=== PATIENT | female | born 1955 | race Caucasian/White ===

== ENCOUNTER 2017-12-25 11:49 | Emergency (ER) | payer MEDICARE, SELFPAY ==
[2017-12-25 11:50] VITALS: BP 157/108; PULSE 116; RESP 28; TEMP 36.6; O2SAT 99; BMI 49.3
--- NOTE | 2017-12-25 12:14 | EKG12_ITS ---
Test Reason : FLU/TACHYCARDIA Blood Pressure : / mmHG Vent. Rate : 113 BPM Atrial Rate : 113 BPM P-R Int : 156 ms QRS Dur : 128 ms QT Int : 368 ms P-R-T Axes : 068 -45 028 degrees QTc Int : 504 ms Sinus tachycardia Right bundle branch block Left anterior fascicular block Bifascicular block Inferior infarct , age undetermined Anterolateral infarct , age undetermined Abnormal ECG Confirmed by SHEKHAR BHAT, HOLLI ([id number]), clinical editor RICARDO DASILVA ([id number]) on 12/28/2017 1:48:38 PM Referred By: TDOD Confirmed By:HOLLI CORRIGAN MD
[2017-12-25 12:28] LABS: Absolute Lymphocyte Count 2.43 X10^3/ul (0.83-4.51); Absolute Neutrophil Count 3.9 X10^3/uL (2.0-7.7); Basophil# 0.02 X10^3/uL; Basophil% 0.3 % (0-1); Eosinophil# 0.16 X10^3/uL; Eosinophils% 2.2 % (0-5); Hematocrit 39.9 % (37-47); Lymphocyte # 2.43 X10^3/ul (4.0); Lymphocyte % 34.1 % (19-41); Mean Corp Hgb Conc 32.6 g/gl (32-36); Mean Corpuscular Hgb 29.3 pg (27.0-32.0); Mean Corpuscular Volume 90.1 fL (81-99); Mean Platelet Vol. 10.8 fl (6.2-12.0); Monocyte# 0.59 X10^3/uL; Monocyte% 8.3 % (0-10); Neutrophil # 3.92 X10^3/uL (2.7-7.7); Platelet Count 265 K/mm3 (150-450); RBC Distribution Width CV 12.6 % (11.6-14.6); RBC Distribution Width SD 41.1 fl (35.1-43.9); Red Blood Count 4.43 M/mm3 (4.2-5.4); White Blood Count 7.1 K/mm3 (4.4-11.0)
[2017-12-25] MEDS: Ondansetron 4 MG/2 ML Vial IV (12:28)
[2017-12-25 12:30] LABS: POSITIVE COUNT NO; POSITIVE DIFFERENTIAL NO; POSITIVE MORPHOLOGY NO
[2017-12-25] MEDS: Morphine 4 MG/ML Syringe IV (12:30)
[2017-12-25 12:39] LABS: International Normalized Ratio 1.1; Prothrombin Time (Protime)PT. 13.7 SECONDS (11.7-14.9)
[2017-12-25 12:40] LABS: Anion Gap 9 (5-15); BUN 14 mg/dL (7-18); BUN/Creat Ratio 16.4 RATIO (10-20); Calcium,Total 9.3 mg/dL (8.5-10.1); Chloride 97 mmol/L (98-107); Creatinine, Serum 0.85 mg/dL (0.55-1.02); EST Glomerular Filtration Rate 71 mL/min (>60); Est Glom Filt Rate - Afr Amer 86 mL/min (>60); Estimated Creatinine Clearance 60.96 ml/min; Glucose 337 mg/dL (74-106); Potassium 3.3 mmol/L (3.5-5.1); Sodium Level 133 mmol/L (136-145)
[2017-12-25 13:15] LABS: Bacteria 0 SEEN /hpf (None Seen); Mucous, Urine 0 SEEN /hpf (<or=2+); Red Blood Cells-Urine 0 SEEN /hpf (0-5); Squamous Epithelial Cells - UA 0 SEEN /hpf (5-10); White Blood Cells 0 SEEN /hpf (0-5)
[2017-12-25 13:19] LABS: Color, Urine Yellow (Yellow); Glucose, Dipstick 1000 mg/dl (Normal); Ketone-Dipstick Negative (Negative); Leukocyte Esterase-Dipstick Negative /ul (Negative); Nitrite-Dipstick Negative (Negative); Occult Blood-Urine 10 /ul (Negative); Protein-Dipstick 100 mg/dl (Negative); Urine Bilirubin Dipstick Negative (Negative); Urine Clarity Clear (Clear); Urine Urobilinogen Normal (Normal)
[2017-12-25 13:42] VITALS: BP 151/79; PULSE 94; O2SAT 94
--- NOTE | 2017-12-25 15:25 | ED.VISSUMM ---
- ER Visit Summary Date of Service: 12/25/17 Chief Complaint: Hyperglycemia and sacral decubitus ulcer. History of Present Illness: The patient is a 62 F who presents with elevated blood sugars that began yesterday. Patient is concerned over a possible infection that is causing her blood sugars to elevate. Patient states she did take her insulin today and her sugar remained elevated. Patient admits to increasing fatigue and increasing sleep. Patient states she does not ambulate due to chronic infection of her hip. Patient denies any fevers. Patient admits to some nausea but denies any vomiting. Patient states she did have an episode of chest pain yesterday but currently denies any chest pain. Physical Examination: Vital signs showed tachycardia and tachypnea on initial vital signs. This improved during her emergency department stay. Patient is afebrile. Patient is in no acute distress. Oral mucosa is pink and moist. Pupils are equal, round, reactive to light bilaterally. Extraocular muscles are intact. Heart was regular rate and rhythm. Lungs are clear and equal bilaterally. There is adequate respiratory effort noted. Abdomen is soft and obese. There is no tenderness. Bowel sounds are normal. Skin is warm and dry. There is a stage II decubitus ulcer over the sacrum. There is no surrounding erythema. There is no discharge or drainage noted. Cranial nerves II through XII are intact. There are no focal motor or sensory deficits noted. Test Results: CBC was within normal limits. EKG showed sinus tachycardia with a rate of 113. There is a bifascicular block noted. There is left axis deviation. 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 There are no acute ST or T-wave changes. Basic metabolic profile showed an elevated glucose of 337. Patient was given a dose of NovoLog here. Urinalysis does not show any evidence of urinary tract infection. Emergency Department Course and Treatment: Patient was given a dose of NovoLog 5 units subcu here. A DuoDERM dressing was applied to the sacral decubitus ulcer. Patient was advised that she does not have any signs and symptoms of sepsis. Patient was instructed to continue her Bactrim as previously prescribed. Patient was instructed to follow-up with her primary care physician for further management of her pain. Patient understood and was agreeable with the plan. All questions were answered. Disposition: Discharged home Impression: Hyperglycemia, sacral decubitus ulcer stage II This note was generated with [employer] software. It may contain incorrect words, spelling, and punctuation that were not noted in review of the chart prior to signing ED Disposition - Plan for ED Patient: Disposition: Home or Assisted Living Chief Complaint: General Illness Diagnosis: Hyperglycemia, Sacral decubitus ulcer, stage II Instructions: ED Hyperglycemia Diabetic Referrals: Gera Snider III, MD [Primary Care Provider] -
[2017-12-25 15:35] VITALS: BP 179/74; PULSE 92; RESP 18; O2SAT 95
[2017-12-25 16:12] VITALS: BP 172/74; PULSE 64; RESP 18; O2SAT 95
--- NOTE | 2017-12-25 16:39 | ED.RN ---
UPON ATTEMPTING TO DC PT, PT BEGAN CRYING ABOUT BEING SENT HOME. EXPLAINED TO PT SHE COULDN'T BE ADMITTED D/T NO INFECTION OR MEDICAL DX. PT VOICED CONCERN FOR BEING ABLE TO CARE FOR SELF, WALKING, AND WOUND ON BUTTOCK. ADVISED PT ABOUT CASE MANAGEMENT OR A RAILROAD CONDUCTOR BEING ABLE TO HELP, AND OFFERED TO GET THEM FOR HER TO TALK TO. PT DECLINED. PT STATED SHE WOULD CALL ON HER OWN WHEN SHE GOT HOME. ADVISED TO PT TO CALL BACK TO THE HOSPITAL IF SHE HAD QUESTIONS OR CHANGED HER MIND ABOUT HELP. PT STATED UNDERSTANDING AND THAT SHE WOULD FOLLOW UP WITH PCP.
== END 2017-12-25 16:13 | disposition home or self-care (01) ==
PROVIDERS: Emergency Provider Emergency Medicine; Family Provider Family Medicine; PCP Family Medicine
DX: E11.65 Type 2 diabetes mellitus with hyperglycemia (principal); L89.152 Pressure ulcer of sacral region, stage 2; E11.622 Type 2 diabetes mellitus with other skin ulcer; Z79.4 Long term (current) use of insulin; I25.10 Atherosclerotic heart disease of native coronary artery without angina pectoris; I25.2 Old myocardial infarction; Z95.1 Presence of aortocoronary bypass graft; Z86.73 Personal history of transient ischemic attack (TIA), and cerebral infarction without residual deficits; Z79.82 Long term (current) use of aspirin; Z79.01 Long term (current) use of anticoagulants; Z79.899 Other long term (current) drug therapy; Z72.0 Tobacco use
CPT/HCPCS: 51702; 80048; 81001; 84484; 85025; 85610; 85730; 93005; 96374; 96375; 99285; J7030; A4216; J2405

== ENCOUNTER 2018-01-31 14:30 | Outpatient (RCR) | payer MEDICARE, SELFPAY ==
[2018-01-24 15:32] VITALS: BP 153/67; PULSE 69; RESP 18; TEMP 36.1; BMI 38.6
--- NOTE | 2018-01-29 14:19 | HP.PCM_ITS ---
(1) Stage II pressure ulcer of right buttock Status: Acute Code(s): L89.312 - Pressure ulcer of right buttock, stage 2 (2) Stage II pressure ulcer of left buttock Status: Acute Code(s): L89.322 - Pressure ulcer of left buttock, stage 2 (3) Obesity, morbid Status: Acute Code(s): E66.01 - Morbid (severe) obesity due to excess calories (4) COPD (chronic obstructive pulmonary disease) Status: Chronic Code(s): J44.9 - Chronic obstructive pulmonary disease, unspecified (5) Coronary artery disease Status: Chronic Comment: Status post CABG (6) Depression Status: Chronic Code(s): F32.9 - Major depressive disorder, single episode, unspecified (7) Diabetic neuropathy associated with type 2 diabetes mellitus Status: Chronic Code(s): E11.40 - Type 2 diabetes mellitus with diabetic neuropathy, unspecified Comment: Bilateral (8) Peripheral vascular disease in diabetes mellitus Status: Chronic Code(s): E11.51 - Type 2 diabetes mellitus with diabetic peripheral angiopathy without gangrene (9) Tobacco abuse Status: Chronic Code(s): Z72.0 - Tobacco use History of Present Illness Date of Service: 01/24/18 Chief Complaint: Open pressure sore b/l buttocks x 2 months History of Wound: This is a 62-year-old white female who presents to the wound healing center today with complaints of ulcerations on her bilateral buttocks times the past 2 months. The patient was seen at [facility] emergency department in December 2017 with similar complaints. The patient does have a past medical history which is significant for morbid obesity, type 2 diabetes mellitus, COPD with chronic tobacco abuse, obstructive sleep apnea, hypertension, peripheral vascular disease, peripheral arterial disease, coronary artery disease, osteoarthritis, and peripheral neuropathy. The patient states that she has been using hydrogel and foam for the past 3 days. She does state that she spends most of her time in a recliner chair at home and is wheelchair-bound otherwise. She does use a [id number] wheelchair cushion that she has bought. She states that her blood sugars are adequately controlled. She denies any obvious signs of infection specifically denies any purulent drainage, fever, chills, nausea, vomiting, shortness of breath, chest pain or pressure, syncope or presyncopal episodes. Past Medical History Past Medical History: Chronic Problems Tobacco abuse (Chronic) COPD (chronic obstructive pulmonary disease) (Chronic) Depression (Chronic) Dyslipidemia (Chronic) Diabetic nephropathy (Chronic) Pressure ulcer of left heel, stage 2 (Chronic) Stage III pressure ulcer of sacral region (Chronic) Right hip pain (Chronic) Diabetic neuropathy (Chronic) Peripheral vascular disease in diabetes mellitus (Chronic) Diabetic neuropathy associated with type 2 diabetes mellitus (Chronic) Bilateral Diabetic ulcer of heel (Chronic) Left, grade 2 Diabetes mellitus type II (Chronic) Coronary artery disease (Chronic) Status post CABG 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, right hip surgery Allergies/Adverse Reactions: Allergies povidone-iodine [From Betadine] Allergy (Verified 06/03/17 19:25) Itching topical betadine prednisone Allergy (Verified 06/03/17 19:25) Other Home Medications: Ambulatory Orders Medication Instructions Recorded Aspirin [Aspirin, Baby] 81 mg PO DAILY@0800 03/24/15 Atorvastatin Calcium [Lipitor] 40 mg PO QHS 03/24/15 Clopidogrel Bisulfate [Plavix] 75 mg PO DAILY 03/24/15 Gabapentin [Neurontin] 800 mg PO TIDCM 03/24/15 Metoprolol Tartrate [Lopressor 25 mg PO BID 03/24/15 (Beta [place])] Omeprazole [Prilosec] 20 mg PO DAILY 03/24/15 Fluticasone 0.05% [Flonase Nasal 2 spray NASAL DAILY PRN 07/20/15 [place]] Insulin Glargine,Hum.rec.anlog 60 unit SQ QHS 07/20/15 [Lantus] Lisinopril [Zestril] 20 mg PO DAILY 11/09/15 Ferrous Sulfate 325 mg PO DAILY 04/19/16 Fluconazole [Diflucan] 150 mg PO QWEEK 04/19/16 Insulin Lispro [Humalog KwikPen] 22 unit SQ TID 04/19/16 Nystatin Powder [Mycostatin Powder] 1 applic TOPICAL TID PRN 04/19/16 Albuterol Aerosols [Ventolin 2.5 mg INHALATION Q6HWA.RT PRN 09/10/16 Aerosols] Duloxetine HCl 60 mg PO DAILY 06/03/17 Diphenoxylate HCl/Atropine 1 each PO 4X/DAY PRN PRN 12/25/17 [Lomotil 2.5-0.025 mg Tablet] Sulfamethoxazole/Trimethoprim 2 each PO BID 12/25/17 [Bactrim 400-80 mg Tablet] traMADol [Ultram (G)] 50 mg PO DAILY PRN PRN 12/25/17 Amitriptyline HCl [Elavil] 25 mg PO QHS 01/24/18 - Family History Maternal Cancer, Diabetes, Hypertension, Pulmonary Disease Paternal Cancer, Hypertension, Pulmonary Disease, No pertinent history Smoking Status: Current every day smoker Review of Systems Constitutional: Denies: Chills, Fever, Weight Change Eyes: Denies: Pain, Vision Change HEENT: Denies: Difficulty Hearing, Difficulty Swallowing, Sinus Congestion Cardiovascular: Denies: Chest Pain, Palpitations Respiratory: Denies: Cough, Shortness of Breath Gastrointestinal: Denies: Diarrhea, Nausea, Vomiting Genitourinary: Denies: Dysuria, Hematuria Skin: Reports: Wounds - seer HPI Endocrine: Denies: Heat/ Cold Intolerance, Polydipsia, Polyuria Hematologic/ Lymphatic: Denies: Easy Bruising, Easy Bleeding - Physical Exam Vital Signs Temp Pulse Resp BP 96.9 F L 69 18 153/67 H 01/24/18 15:32 01/24/18 15:32 01/24/18 15:32 01/24/18 15:32 General: Alert, Oriented x3, Cooperative, No apparent distress, - - wheelchair bound, morbidly obese HEENT: Atraumatic Oral: Moist Mucosa Neck: Supple Lungs: Clear to auscultation, Normal air movement Cardiovascular: Regular rate, Regular Rhythm, Normal S1, Normal S2 Abdomen: Bowel Sounds Present, Obese Extremities: Diminished Peripheral Pulses, Edema - 3+ BLLE Skin: Ulcer/ Wound - Stage II pressure ulcers present bilateral upper buttocks with moderate amount of devitalized tissue and slough present, no purulent drainage or tenderness on exam noted. Musculoskeletal: No Tenderness to Palpation of Joints or Extremities Neurological: Neuro grossly intact Psych/Mental Status: Normal Affect, Alert and oriented to time, place, person, mood and affect Debridement Note Post-Debridement Measurements/Treatment WC - Nurse 2 - General Ulcer CM Notes Start: 01/24/18 15:32 Freq: Status: Active Protocol: Activity Type Activity Date Activity User E-Sign Co-Sign Detail Recorded Client Recorded Date Recorded By Document 01/24/18 16:01 [id number] 01/24/18 16:16 01/24/18 16:01 Wound Center Nurse 2 #13 right sacral ulcer -Time 16:15 -Correct Patient Yes -Correct Side, Site, Position Yes -Correct Procedure Yes -Procedure Performed Yes -Type of Procedure Debridement -Clinical Debridement Subcutaneous -Post Debridement Size (cm) - Length 0.8 -Post Debridement Size (cm) - Width 0.5 -Post Debridement Size (cm) - Depth 0.1 -Total Square Cm 0.40 -Wound/Ulcer Outcome Not Healed -Ulcer Cleansing Rinsed/ Irrigated with Saline -Foul Odor after Cleansing No -Bioengineered Tissue No -Topical Lidocaine (%) 5 -Bleeding Controlled with Pressure -Treatment Response Procedure Tolerated Well #12 left sacral cluster ulcer -Time 16:01 -Correct Patient Yes -Correct Side, Site, Position Yes -Correct Procedure Yes -Procedure Performed Yes -Type of Procedure Debridement -Clinical Debridement Subcutaneous -Post Debridement Size (cm) - Length 4.5 -Post Debridement Size (cm) - Width 3.5 -Post Debridement Size (cm) - Depth 0.1 -Total Square Cm 15.75 -Wound/Ulcer Outcome Not Healed -Ulcer Cleansing Rinsed/ Irrigated with Saline -Foul Odor after Cleansing No -Bioengineered Tissue No -Topical Lidocaine (%) 5 -Bleeding Controlled with Pressure -Treatment Response Procedure Tolerated Well Pain Scale: 0-10 Numeric Is Patient Pain Free? Yes Wound debrided: Stage II pressure ulcer right buttock Laterality: Right Type of Debridement: Excisional debridement Anesthesia Used: 5% Lidocaine Gel Depth: Down to and including healthy tissue, in the subcutaneous layer Percentage of wound debrided: 100 Instrument Used: 5mm curette Tissue Removed: Slough and devitalized tissue Severity: Fat Layer Exposed Amount of bleeding with debridement: Mild Bleeding Controlled with: Pressure Patient tolerated procedure well - Additional Wound Wound debrided: Stage II pressure ulcer left buttock Laterality: Left Type of Debridement: Excisional debridement Anesthesia Used: 5% Lidocaine Gel Depth: Down to and including healthy tissue, in the subcutaneous layer Percentage of wound debrided: 100 Instrument Used: 5mm curette Tissue Removed: Slough and devitalized tissue Severity: Fat Layer Exposed Amount of bleeding with debridement: Mild Bleeding Controlled with: Pressure Patient tolerated procedure: Patient tolerated procedure well Assessment/Plan Assessment: Stage II pressure ulcers bilateral buttocks Plan: The patient was seen and examined at the wound center today and was updated on the plan of care. A subcutaneous debridement was performed today. The patient tolerated the procedure well. The patients wound care will consist of:hydrogel covered with allevyn adhesive change daily. Wound cultures were collected. Baseline bloodwork from pcp requested. Patient educated on the importance of diet on wound healing and instructed to increase protein and vitamin C intake, rx given for glucerna high protein. Patient verbalized understanding. Patient will follow up at wound healing center in one week or sooner if needed. Will check prealbumin in future. This note was generated with [employer] dictation software. It may contain incorrect words, spelling, and punctuation that were not noted in checking the note before signing. Code Visit Office Visits / Consults: [id number] OV L4 Est [id number]-113xx: [id number] Ama subq tissue 20 sq cm/<
[2018-01-31 15:54] VITALS: BP 130/53; PULSE 68; RESP 18; TEMP 36.3; BMI 38.6
--- NOTE | 2018-01-31 17:25 | PCM.WC.PN ---
(1) Stage II pressure ulcer of right buttock Status: Acute Code(s): L89.312 - Pressure ulcer of right buttock, stage 2 (2) Stage II pressure ulcer of left buttock Status: Acute Code(s): L89.322 - Pressure ulcer of left buttock, stage 2 (3) Obesity, morbid Status: Acute Code(s): E66.01 - Morbid (severe) obesity due to excess calories (4) COPD (chronic obstructive pulmonary disease) Status: Chronic Code(s): J44.9 - Chronic obstructive pulmonary disease, unspecified (5) Coronary artery disease Status: Chronic Comment: Status post CABG (6) Depression Status: Chronic Code(s): F32.9 - Major depressive disorder, single episode, unspecified (7) Diabetic neuropathy associated with type 2 diabetes mellitus Status: Chronic Code(s): E11.40 - Type 2 diabetes mellitus with diabetic neuropathy, unspecified Comment: Bilateral (8) Peripheral vascular disease in diabetes mellitus Status: Chronic Code(s): E11.51 - Type 2 diabetes mellitus with diabetic peripheral angiopathy without gangrene (9) Tobacco abuse Status: Chronic Code(s): Z72.0 - Tobacco use Type of Wound Date of Service: 01/31/18 Chief Complaint: Open pressure sore b/l buttocks x 2 months History of Wound: This is a 62-year-old white female who presents to the wound healing center today with complaints of ulcerations on her bilateral buttocks times the past 2 months. The patient was seen at [facility] emergency department in December 2017 with similar complaints. The patient does have a past medical history which is significant for morbid obesity, type 2 diabetes mellitus, COPD with chronic tobacco abuse, obstructive sleep apnea, hypertension, peripheral vascular disease, peripheral arterial disease, coronary artery disease, osteoarthritis, and peripheral neuropathy. The patient states that she has been using hydrogel and foam for the past 3 days. She does state that she spends most of her time in a recliner chair at home and is wheelchair-bound otherwise. She does use a [id number] wheelchair cushion that she has bought. She states that her blood sugars are adequately controlled. She denies any obvious signs of infection specifically denies any purulent drainage, fever, chills, nausea, vomiting, shortness of breath, chest pain or pressure, syncope or presyncopal episodes. Progress of Wound: Bilateral wounds have healed and are epithelialized with the treatment of hydrogel and foam dressing and with her offloading mechanisms. There is a small pinpoint area surrounding the wound where the tape was taken off that caused a small amount of bloody drainage which resolved with pressure. The patient otherwise denies any fever, chills, nausea, vomiting, shortness of breath, chest pain or pressure, palpitations, orthopnea, lower extremity edema, syncope or presyncopal episodes. - Physical Exam Vital Signs Temp Pulse Resp BP 97.3 F L 68 18 130/53 H 01/31/18 15:54 01/31/18 15:54 01/31/18 15:54 01/31/18 15:54 General: Alert, Oriented x3, Cooperative, No apparent distress HEENT: Atraumatic Lungs: Clear to auscultation Cardiovascular: Regular rate, Regular Rhythm Extremities: Edema - 2+ bilateral lower extremity edema Skin: Ulcer/ Wound - Bilateral ulcers on the buttocks have healed and skin is epithelialized. Small area from tape removal that is slightly open on left upper buttock Neurological: Neuro grossly intact Psych/Mental Status: Normal Affect, Alert and oriented to time, place, person, mood and affect Debridement Note Post-Debridement Measurements/Treatment WC - Nurse 2 - General Ulcer CM Notes Start: 01/24/18 15:32 Freq: Status: Active Protocol: Activity Type Activity Date Activity User E-Sign Co-Sign Detail Recorded Client Recorded Date Recorded By Document 01/24/18 16:01 TM [id number] 01/24/18 16:16 TM Document 01/31/18 15:54 [id number] 01/31/18 16:05 TM 01/24/18 01/31/18 16:01 15:54 Wound Center Nurse 2 #13 right sacral ulcer -Time 16:15 16:02 -Correct Patient Yes Yes -Correct Side, Site, Position Yes Yes -Correct Procedure Yes Yes -Procedure Performed Yes Yes -Type of Procedure Debridement -Clinical Debridement Subcutaneous -Post Debridement Size (cm) - Length 0.8 0 -Post Debridement Size (cm) - Width 0.5 0 -Post Debridement Size (cm) - Depth 0.1 0 -Total Square Cm 0.40 0 -Wound/Ulcer Outcome Not Healed Healed- Epithelialized -Ulcer Cleansing Rinsed/ Rinsed/ Irrigated with Irrigated with Saline Saline -Foul Odor after Cleansing No No -Bioengineered Tissue No No -Topical Lidocaine (%) 5 -Bleeding Controlled with Pressure NA -Treatment Response Procedure Tolerated Well #12 left sacral cluster ulcer -Time 16:01 16:02 -Correct Patient Yes Yes -Correct Side, Site, Position Yes Yes -Correct Procedure Yes Yes -Procedure Performed Yes Yes -Type of Procedure Debridement Debridement -Clinical Debridement Subcutaneous Subcutaneous -Post Debridement Size (cm) - Length 4.5 0 -Post Debridement Size (cm) - Width 3.5 0 -Post Debridement Size (cm) - Depth 0.1 0 -Total Square Cm 15.75 0 -Wound/Ulcer Outcome Not Healed Healed- Epithelialized -Ulcer Cleansing Rinsed/ Rinsed/ Irrigated with Irrigated with Saline Saline -Foul Odor after Cleansing No No -Bioengineered Tissue No No -Topical Lidocaine (%) 5 -Bleeding Controlled with Pressure NA -Treatment Response Procedure Procedure Tolerated Well Tolerated Well Pain Scale: 0-10 Numeric Is Patient Pain Free? Yes No debridement was completed today Assessment/Plan Assessment: Stage II pressure ulcers bilateral buttocks Plan: The patient was seen and examined at the wound center today and was updated on the plan of care. The patient's wounds have healed with her use of hydrogel covered with allevyn adhesive change daily. Small open area with minimal drainage noted from the removal of the adhesive, instructed patient to cover with hydrogel and gauze for a week and if it becomes persistent to return to the wound healing center. Wound cultures were reviewed and were negative. Patient educated on the importance of diet on wound healing and instructed to increase protein and vitamin C intake, rx given for glucerna high protein previously. Patient verbalized understanding. Patient will follow up at wound healing center in one week or sooner if needed. Patient educated on skin protection and interventions to take to reduce the recurrence of pressure ulcers including the importance of offloading mechanisms. Patient to follow-up on a as needed basis. This note was generated with [employer] dictation software. It may contain incorrect words, spelling, and punctuation that were not noted in checking the note before signing. Code Visit Office Visits / Consults: [id number] OV L3 Est
--- NOTE | 2018-02-06 13:32 | PN.PCM_ITS ---
(1) Stage II pressure ulcer of right buttock Status: Acute Code(s): L89.312 - Pressure ulcer of right buttock, stage 2 (2) Stage II pressure ulcer of left buttock Status: Acute Code(s): L89.322 - Pressure ulcer of left buttock, stage 2 (3) Obesity, morbid Status: Acute Code(s): E66.01 - Morbid (severe) obesity due to excess calories (4) COPD (chronic obstructive pulmonary disease) Status: Chronic Code(s): J44.9 - Chronic obstructive pulmonary disease, unspecified (5) Coronary artery disease Status: Chronic Comment: Status post CABG (6) Depression Status: Chronic Code(s): F32.9 - Major depressive disorder, single episode, unspecified (7) Diabetic neuropathy associated with type 2 diabetes mellitus Status: Chronic Code(s): E11.40 - Type 2 diabetes mellitus with diabetic neuropathy, unspecified Comment: Bilateral (8) Peripheral vascular disease in diabetes mellitus Status: Chronic Code(s): E11.51 - Type 2 diabetes mellitus with diabetic peripheral angiopathy without gangrene (9) Tobacco abuse Status: Chronic Code(s): Z72.0 - Tobacco use Type of Wound Date of Service: 01/31/18 Chief Complaint: Open pressure sore b/l buttocks x 2 months History of Wound: This is a 62-year-old white female who presents to the wound healing center today with complaints of ulcerations on her bilateral buttocks times the past 2 months. The patient was seen at [facility] emergency department in December 2017 with similar complaints. The patient does have a past medical history which is significant for morbid obesity, type 2 diabetes mellitus, COPD with chronic tobacco abuse, obstructive sleep apnea, hypertension, peripheral vascular disease, peripheral arterial disease, coronary artery disease, osteoarthritis, and peripheral neuropathy. The patient states that she has been using hydrogel and foam for the past 3 days. She does state that she spends most of her time in a recliner chair at home and is wheelchair-bound otherwise. She does use a [id number] wheelchair cushion that she has bought. She states that her blood sugars are adequately controlled. She denies any obvious signs of infection specifically denies any purulent drainage, fever, chills, nausea, vomiting, shortness of breath, chest pain or pressure, syncope or presyncopal episodes. Progress of Wound: Bilateral wounds have healed and are epithelialized with the treatment of hydrogel and foam dressing and with her offloading mechanisms. There is a small pinpoint area surrounding the wound where the tape was taken off that caused a small amount of bloody drainage which resolved with pressure. The patient otherwise denies any fever, chills, nausea, vomiting, shortness of breath, chest pain or pressure, palpitations, orthopnea, lower extremity edema, syncope or presyncopal episodes. - Physical Exam Vital Signs Temp Pulse Resp BP 97.3 F L 68 18 130/53 H 01/31/18 15:54 01/31/18 15:54 01/31/18 15:54 01/31/18 15:54 General: Alert, Oriented x3, Cooperative, No apparent distress HEENT: Atraumatic Lungs: Clear to auscultation Cardiovascular: Regular rate, Regular Rhythm Extremities: Edema - 2+ bilateral lower extremity edema Skin: Ulcer/ Wound - Bilateral ulcers on the buttocks have healed and skin is epithelialized. Small area from tape removal that is slightly open on left upper buttock Neurological: Neuro grossly intact Psych/Mental Status: Normal Affect, Alert and oriented to time, place, person, mood and affect Debridement Note Post-Debridement Measurements/Treatment WC - Nurse 2 - General Ulcer CM Notes Start: 01/24/18 15:32 Freq: Status: Active Protocol: Activity Type Activity Date Activity User E-Sign Co-Sign Detail Recorded Client Recorded Date Recorded By Document 01/24/18 16:01 TM [id number] 01/24/18 16:16 TM Document 01/31/18 15:54 [id number] 01/31/18 16:05 TM 01/24/18 01/31/18 16:01 15:54 Wound Center Nurse 2 #13 right sacral ulcer -Time 16:15 16:02 -Correct Patient Yes Yes -Correct Side, Site, Position Yes Yes -Correct Procedure Yes Yes -Procedure Performed Yes Yes -Type of Procedure Debridement -Clinical Debridement Subcutaneous -Post Debridement Size (cm) - Length 0.8 0 -Post Debridement Size (cm) - Width 0.5 0 -Post Debridement Size (cm) - Depth 0.1 0 -Total Square Cm 0.40 0 -Wound/Ulcer Outcome Not Healed Healed- Epithelialized -Ulcer Cleansing Rinsed/ Rinsed/ Irrigated with Irrigated with Saline Saline -Foul Odor after Cleansing No No -Bioengineered Tissue No No -Topical Lidocaine (%) 5 -Bleeding Controlled with Pressure NA -Treatment Response Procedure Tolerated Well #12 left sacral cluster ulcer -Time 16:01 16:02 -Correct Patient Yes Yes -Correct Side, Site, Position Yes Yes -Correct Procedure Yes Yes -Procedure Performed Yes Yes -Type of Procedure Debridement Debridement -Clinical Debridement Subcutaneous Subcutaneous -Post Debridement Size (cm) - Length 4.5 0 -Post Debridement Size (cm) - Width 3.5 0 -Post Debridement Size (cm) - Depth 0.1 0 -Total Square Cm 15.75 0 -Wound/Ulcer Outcome Not Healed Healed- Epithelialized -Ulcer Cleansing Rinsed/ Rinsed/ Irrigated with Irrigated with Saline Saline -Foul Odor after Cleansing No No -Bioengineered Tissue No No -Topical Lidocaine (%) 5 -Bleeding Controlled with Pressure NA -Treatment Response Procedure Procedure Tolerated Well Tolerated Well Pain Scale: 0-10 Numeric Is Patient Pain Free? Yes No debridement was completed today Assessment/Plan Assessment: Stage II pressure ulcers bilateral buttocks Plan: The patient was seen and examined at the wound center today and was updated on the plan of care. The patient's wounds have healed with her use of hydrogel covered with allevyn adhesive change daily. Small open area with minimal drainage noted from the removal of the adhesive, instructed patient to cover with hydrogel and gauze for a week and if it becomes persistent to return to the wound healing center. Wound cultures were reviewed and were negative. Patient educated on the importance of diet on wound healing and instructed to increase protein and vitamin C intake, rx given for glucerna high protein previously. Patient verbalized understanding. Patient will follow up at wound healing center in one week or sooner if needed. Patient educated on skin protection and interventions to take to reduce the recurrence of pressure ulcers including the importance of offloading mechanisms. Patient to follow-up on a as needed basis. This note was generated with [employer] dictation software. It may contain incorrect words, spelling, and punctuation that were not noted in checking the note before signing. Code Visit Office Visits / Consults: [id number] OV L3 Est
== END 2018-02-04 23:59 ==
LOC: WC 14:30
PROVIDERS: Family Provider Family Medicine; PCP Family Medicine; Visit Provider Nurse Practitioner Family
DX: E11.622 Type 2 diabetes mellitus with other skin ulcer (principal); L89.312 Pressure ulcer of right buttock, stage 2; L89.322 Pressure ulcer of left buttock, stage 2; E66.01 Morbid (severe) obesity due to excess calories; Z68.38 Body mass index [BMI] 38.0-38.9, adult; Z71.3 Dietary counseling and surveillance; J44.9 Chronic obstructive pulmonary disease, unspecified; I25.10 Atherosclerotic heart disease of native coronary artery without angina pectoris; Z95.1 Presence of aortocoronary bypass graft; E11.40 Type 2 diabetes mellitus with diabetic neuropathy, unspecified; E11.51 Type 2 diabetes mellitus with diabetic peripheral angiopathy without gangrene; Z72.0 Tobacco use
CPT/HCPCS: 11042; 87070; 87075; 87077; 87205; 99213; G0463

== ENCOUNTER 2020-02-05 12:00 | Outpatient (RCR) | payer MEDICARE, MEDICAID, SELFPAY ==
[2020-01-29 08:08] VITALS: BP 145/51; PULSE 78; RESP 18; TEMP 36.6; BMI 45.2
--- NOTE | 2020-01-29 09:16 | PCM.WC.HP ---
(1) Stage II pressure ulcer of left buttock Status: Acute Current Visit: Yes Code(s): L89.322 - Pressure ulcer of left buttock, stage 2 (2) Stage II pressure ulcer of right buttock Status: Acute Current Visit: Yes Code(s): L89.312 - Pressure ulcer of right buttock, stage 2 (3) Diabetes mellitus type II Status: Chronic Current Visit: Yes History of Present Illness Date of Service: 01/29/20 Chief Complaint: Recurrent Bilateral decubitus Ulcers. 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 She states that her ulcers have been well managed by her home nurse however due to the pandemic, there was a change in her regular scheduled nurse. Current episode has been present for weeks. She is largely sedentary and sleeps in her chair as well. History of Tobacco abuse. At this time, she denies chills, fever, nausea, vomiting or change in bowel movements. Past Medical History Past Medical History: Chronic Problems Tobacco abuse (Chronic) COPD (chronic obstructive pulmonary disease) (Chronic) Depression (Chronic) Dyslipidemia (Chronic) Diabetic nephropathy (Chronic) Pressure ulcer of left heel, stage 2 (Chronic) Stage III pressure ulcer of sacral region (Chronic) Right hip pain (Chronic) Diabetic neuropathy (Chronic) Peripheral vascular disease in diabetes mellitus (Chronic) Diabetic neuropathy associated with type 2 diabetes mellitus (Chronic) Bilateral Diabetic ulcer of heel (Chronic) Left, grade 2 Diabetes mellitus type II (Chronic) Coronary artery disease (Chronic) Status post CABG 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, right hip surgery Allergies/Adverse Reactions: Allergies povidone-iodine [From Betadine] Allergy (Verified 06/03/17 19:25) Itching topical betadine prednisone Allergy (Verified 06/03/17 19:25) Other Home Medications: Ambulatory Orders Medication Instructions Recorded Aspirin [Aspirin, Baby] 81 mg PO DAILY@0800 03/24/15 Atorvastatin Calcium [Lipitor] 40 mg PO QHS 03/24/15 Clopidogrel Bisulfate [Plavix] 75 mg PO DAILY 03/24/15 Gabapentin [Neurontin] 800 mg PO TIDCM 03/24/15 Metoprolol Tartrate [Lopressor 25 mg PO BID 03/24/15 (Beta [place])] Omeprazole [Prilosec] 20 mg PO DAILY 03/24/15 Fluticasone 0.05% [Flonase Nasal 2 spray NASAL DAILY PRN 07/20/15 [place]] Insulin Glargine,Hum.rec.anlog 60 unit SQ QHS 07/20/15 [Lantus] Lisinopril [Zestril] 20 mg PO DAILY 11/09/15 Ferrous Sulfate 325 mg PO DAILY 04/19/16 Fluconazole [Diflucan] 150 mg PO QWEEK 04/19/16 Insulin Lispro [Humalog KwikPen] 22 unit SQ TID 04/19/16 Nystatin Powder [Mycostatin Powder] 1 applic TOPICAL TID PRN 04/19/16 Albuterol Aerosols [Ventolin 2.5 mg INHALATION Q6HWA.RT PRN 09/10/16 Aerosols] Duloxetine HCl 60 mg PO DAILY 06/03/17 Diphenoxylate HCl/Atropine 1 each PO 4X/DAY PRN PRN 12/25/17 [Lomotil 2.5-0.025 mg Tablet] Sulfamethoxazole/Trimethoprim 2 each PO BID 12/25/17 [Bactrim 400-80 mg Tablet] traMADol [Ultram (G)] 50 mg PO DAILY PRN PRN 12/25/17 Amitriptyline HCl [Elavil] 25 mg PO QHS 01/24/18 - Family History Maternal Cancer, Diabetes, Hypertension, Pulmonary Disease Paternal Cancer, Hypertension, Pulmonary Disease, No pertinent history Smoking Status: Current every day smoker Review of Systems Constitutional: Denies: Anorexia, Chills, Fever, Night Sweats Eyes: Denies: Blurred vision, Redness HEENT: Denies: Difficulty Hearing, Difficulty Swallowing Cardiovascular: Denies: Chest Pain, Claudication Respiratory: Denies: Cough, Hemoptysis Gastrointestinal: Denies: Abdominal Pain, Hematemesis Skin: Denies: Jaundice - Physical Exam Vital Signs Temp Pulse Resp BP 97.8 F 78 18 145/51 H 01/29/20 08:08 01/29/20 08:08 01/29/20 08:08 01/29/20 08:08 General: Alert, Oriented x3, Cooperative, No apparent distress HEENT: Atraumatic, Normocephalic Oral: Moist Mucosa Neck: Supple Lungs: Clear to auscultation, Normal air movement Abdomen: Non Tender, Obese Extremities: No cyanosis Skin: Ulcer/ Wound Wound Measurements and Assessment WC - Nurse 1 - General Ulcer Measurement Start: 01/29/20 08:07 Freq: Status: Active Protocol: Activity Type Activity Date Activity User E-Sign Co-Sign Detail Recorded Client Recorded Date Recorded By Document 01/29/20 08:08 PL [id number] 01/29/20 08:21 PL 01/29/20 08:08 Wound Center Nurse 1 [Ulcer Assessment] #13 Coccyx -Combined with other wound No -Current Size (cm) - Length 0.7 -Current Size (cm) - Width 2 -Current Size (cm) - Depth 0.1 -Total Square Cm 1.4 -Photo Taken No -Epithelialization None Present -Tunneling No -Undermining/Tunneling No -Classification - Thickness Partial Thickness -Classification - Pressure Ulcer Stage 2 -Exudate Amt None Present -Granulation Amt Large (67-100%) -Granulation Quality [place],Red -Slough/Fibrin No -Texture (Gina-wound Skin Appearance) Excoriation -Moisture (Gina-wound Skin Appearance No Abnormality ) -Temperature (Gina-wound Skin No Abnormality Appearance) (Pt Warm) -Ulcer Cleansing Rinsed/ Irrigated with Saline WC - Nurse 2 - General Ulcer CM Notes Start: 01/29/20 08:07 Freq: Status: Active Protocol: Activity Type Activity Date Activity User E-Sign Co-Sign Detail Recorded Client Recorded Date Recorded By Document 01/29/20 08:59 MW [id number] 01/29/20 09:02 MW 01/29/20 08:59 Wound Center Nurse 2 [Procedure/Treatment] #15 left buttock cluster -Time 09:00 -Correct Patient Yes -Correct Side, Site, Position Yes -Correct Procedure Yes -Procedure Performed Yes -Type of Procedure Debridement -Clinical Debridement Subcutaneous -Post Debridement Size (cm) - Length 1.0 -Post Debridement Size (cm) - Width 2.0 -Post Debridement Size (cm) - Depth 0.1 -Total Square Cm 2.00 -Wound/Ulcer Outcome Not Healed -Ulcer Cleansing Rinsed/ Irrigated with Saline -Foul Odor after Cleansing No -Bioengineered Tissue No -Bleeding Controlled with Pressure -Offloading No -Treatment Response Procedure Tolerated Well #14 right buttock cluster -Time 09:02 -Correct Patient Yes -Correct Side, Site, Position Yes -Correct Procedure Yes -Procedure Performed Yes -Type of Procedure Debridement -Clinical Debridement Subcutaneous -Post Debridement Size (cm) - Length 3.3 -Post Debridement Size (cm) - Width 2.0 -Post Debridement Size (cm) - Depth 0.1 -Total Square Cm 6.60 -Wound/Ulcer Outcome Not Healed -Ulcer Cleansing Rinsed/ Irrigated with Saline -Foul Odor after Cleansing No -Bioengineered Tissue No -Bleeding Controlled with Pressure -Offloading No -Treatment Response Procedure Tolerated Well #13 Coccyx -Time 08:59 -Correct Patient Yes -Correct Side, Site, Position Yes -Correct Procedure Yes -Procedure Performed No -Post Debridement Size (cm) - Length 0 -Post Debridement Size (cm) - Width 0 -Post Debridement Size (cm) - Depth 0 -Total Square Cm 0 -Wound/Ulcer Outcome Converted [See Physician Procedure note for Specifics] Pain Scale: 0-10 Numeric [Pain] -Is Patient Pain Free? Yes Musculoskeletal: No Muscle Wasting Neurological: Cranial nerves II-XII grossly intact Psych/Mental Status: Normal Affect Debridement Note Post-Debridement Measurements/Treatment WC - Nurse 2 - General Ulcer CM Notes Start: 01/29/20 08:07 Freq: Status: Active Protocol: Activity Type Activity Date Activity User E-Sign Co-Sign Detail Recorded Client Recorded Date Recorded By Document 01/29/20 08:59 MW [id number] 01/29/20 09:02 MW 01/29/20 08:59 Wound Center Nurse 2 #15 left buttock cluster -Time 09:00 -Correct Patient Yes -Correct Side, Site, Position Yes -Correct Procedure Yes -Procedure Performed Yes -Type of Procedure Debridement -Clinical Debridement Subcutaneous -Post Debridement Size (cm) - Length 1.0 -Post Debridement Size (cm) - Width 2.0 -Post Debridement Size (cm) - Depth 0.1 -Total Square Cm 2.00 -Wound/Ulcer Outcome Not Healed -Ulcer Cleansing Rinsed/ Irrigated with Saline -Foul Odor after Cleansing No -Bioengineered Tissue No -Bleeding Controlled with Pressure -Offloading No -Treatment Response Procedure Tolerated Well #14 right buttock cluster -Time 09:02 -Correct Patient Yes -Correct Side, Site, Position Yes -Correct Procedure Yes -Procedure Performed Yes -Type of Procedure Debridement -Clinical Debridement Subcutaneous -Post Debridement Size (cm) - Length 3.3 -Post Debridement Size (cm) - Width 2.0 -Post Debridement Size (cm) - Depth 0.1 -Total Square Cm 6.60 -Wound/Ulcer Outcome Not Healed -Ulcer Cleansing Rinsed/ Irrigated with Saline -Foul Odor after Cleansing No -Bioengineered Tissue No -Bleeding Controlled with Pressure -Offloading No -Treatment Response Procedure Tolerated Well #13 Coccyx -Time 08:59 -Correct Patient Yes -Correct Side, Site, Position Yes -Correct Procedure Yes -Procedure Performed No -Post Debridement Size (cm) - Length 0 -Post Debridement Size (cm) - Width 0 -Post Debridement Size (cm) - Depth 0 -Total Square Cm 0 -Wound/Ulcer Outcome Converted Pain Scale: 0-10 Numeric Is Patient Pain Free? Yes Wound debrided: Left Buttock Wound Grade/Stage: Stage II Type of Debridement: Excisional debridement Anesthesia Used: 5% Lidocaine Gel Depth: Down to and including healthy tissue, in the subcutaneous layer Percentage of wound debrided: 100 Instrument Used: 3mm curette Tissue Removed: Slough and devitalized tissue Severity: Fat Layer Exposed Amount of bleeding with debridement: Mild Bleeding Controlled with: Pressure Patient tolerated procedure well - Additional Wound Wound debrided: Right Buttock Type of Debridement: Excisional debridement Anesthesia Used: 5% Lidocaine Gel Depth: Down to and including healthy tissue, in the subcutaneous layer Percentage of wound debrided: 100 Instrument Used: 3mm curette Tissue Removed: Slough and devitalized tissue Severity: Fat Layer Exposed Amount of bleeding with debridement: Mild Bleeding Controlled with: Pressure Patient tolerated procedure: Patient tolerated procedure well Assessment/Plan Active Problems Stage II pressure ulcer of right buttock (Acute) Stage II pressure ulcer of left buttock (Acute) Diabetes mellitus type II (Chronic) Assessment: Stage II pressure ulcers bilateral buttocks Plan: Debridement done as documented above. Procedure was well-tolerated. Moistened Fibracol to bilateral ulcers. Gauze over top and change daily. Offloading is recommended. Smoking cessation and increased protein intake also recommended. Her questions were answered and she was advised to call with any further questions or concerns. Follow-up in a week. This note was generated with [employer] dictation software. It may contain incorrect words, spelling, and punctuation that were not noted in checking the note before signing. Multi Select Codes - Visit Charges Office Visit/Consults: 09123 OV L3 New - Integumentary Integumentary CPT Codes: 79331 Ama subq tissue 20 sq cm/<
[2020-01-29 13:08] VITALS: BMI 45.2
[2020-02-05 12:19] VITALS: BP 166/68; PULSE 85; RESP 16; TEMP 35.9; BMI 45.2
--- NOTE | 2020-02-05 13:20 | PCM.WC.PN ---
(1) Stage II pressure ulcer of left buttock Status: Acute Current Visit: Yes Code(s): L89.322 - Pressure ulcer of left buttock, stage 2 (2) Stage II pressure ulcer of right buttock Status: Acute Current Visit: Yes Code(s): L89.312 - Pressure ulcer of right buttock, stage 2 (3) Diabetes mellitus type II Status: Chronic Current Visit: Yes (4) Decubitus ulcer of coccygeal region, stage 3 Status: Acute Current Visit: Yes Code(s): L89.153 - Pressure ulcer of sacral region, stage 3 Type of Wound Date of Service: 02/05/20 Chief Complaint: Recurrent Bilateral decubitus Ulcers. 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 She states that her ulcers have been well managed by her home nurse however due to the pandemic, there was a change in her regular scheduled nurse. Current episode has been present for weeks. She is largely sedentary and sleeps in her chair as well. History of Tobacco abuse. At this time, she denies chills, fever, nausea, vomiting or change in bowel movements. Progress of Wound: New coccygeal ulcer noted. Patient admits that due to concerns with supply has not been doing daily dressing changes. Also concern for stool contamination. - Physical Exam Vital Signs Temp Pulse Resp BP 96.6 F L 85 16 166/68 H 02/05/20 12:19 02/05/20 12:19 02/05/20 12:19 02/05/20 12:19 General: Alert, Oriented x3, Cooperative, No apparent distress HEENT: Atraumatic, Normocephalic Oral: Moist Mucosa Neck: Supple Lungs: Normal air movement Abdomen: Non Tender, Obese Extremities: No cyanosis, Edema Skin: Ulcer/ Wound Wound Measurements and Assessment WC - Nurse 1 - General Ulcer Measurement Start: 01/29/20 08:07 Freq: Status: Active Protocol: Activity Type Activity Date Activity User E-Sign Co-Sign Detail Recorded Client Recorded Date Recorded By Document 02/05/20 12:19 DL [id number] 02/05/20 12:25 DL 02/05/20 12:19 Wound Center Nurse 1 [Ulcer Assessment] #15 left buttock cluster -Combined with other wound No -Current Size (cm) - Length 3.8 -Current Size (cm) - Width 0.7 -Current Size (cm) - Depth 0.2 -Total Square Cm 2.66 -Photo Taken No -Epithelialization None Present -Tunneling No -Undermining/Tunneling No -Circular Undermining No -Exudate Amt Small -Exudate Type Serosanguineous -Wound Margin Distinct, Outline Attached -Granulation Amt Large (67-100%) -Granulation Quality Pale,[place] -Slough/Fibrin Yes -Necrosis Amt None Present (0 %) -Necrotic Tissue Type Adherent Slough -Structure Exposed N/A -Texture (Gina-wound Skin Appearance) Scarring -Moisture (Gina-wound Skin Appearance No Abnormality, ) Assessed -Color (Gina-wound Skin Appearance) No Abnormality, Assessed -Temperature (Gina-wound Skin No Abnormality Appearance) (Pt Warm) -Tenderness on Palpation (Gina-wound No Skin Appearance) -Ulcer Cleansing Rinsed/ Irrigated with Saline -Foul Odor after Cleansing No -Anesthetic Used 4% Lidocaine Solution #14 right buttock cluster -Combined with other wound No -Current Size (cm) - Length 3.8 -Current Size (cm) - Width 1.8 -Current Size (cm) - Depth 1.0 -Total Square Cm 6.84 -Photo Taken No -Epithelialization None Present -Tunneling No -Undermining/Tunneling No -Circular Undermining No -Exudate Amt Small -Exudate Type Serosanguineous -Wound Margin Distinct, Outline Attached -Granulation Amt Large (67-100%) -Granulation Quality Pale,[place] -Slough/Fibrin Yes -Necrosis Amt None Present (0 %) -Necrotic Tissue Type Adherent Slough -Structure Exposed N/A -Texture (Gina-wound Skin Appearance) Scarring -Moisture (Gina-wound Skin Appearance No Abnormality, ) Assessed -Color (Gina-wound Skin Appearance) No Abnormality, Assessed -Temperature (Gina-wound Skin No Abnormality Appearance) (Pt Warm) -Tenderness on Palpation (Gina-wound No Skin Appearance) -Ulcer Cleansing Rinsed/ Irrigated with Saline -Foul Odor after Cleansing No -Anesthetic Used 4% Lidocaine Solution [Edema Assessment] -Lower Limb Edema Present NA WC - Nurse 2 - General Ulcer CM Notes Start: 01/29/20 08:07 Freq: Status: Active Protocol: Activity Type Activity Date Activity User E-Sign Co-Sign Detail Recorded Client Recorded Date Recorded By Document 02/05/20 12:43 MW [id number] 02/05/20 12:50 MW 02/05/20 12:43 Wound Center Nurse 2 [Procedure/Treatment] #16 coccyx -Time 12:47 -Correct Patient Yes -Correct Side, Site, Position Yes -Correct Procedure Yes -Procedure Performed Yes -Type of Procedure Debridement -Clinical Debridement Subcutaneous -Post Debridement Size (cm) - Length 3.8 -Post Debridement Size (cm) - Width 0.8 -Post Debridement Size (cm) - Depth 0.3 -Total Square Cm 3.04 -Wound/Ulcer Outcome Not Healed -Ulcer Cleansing Rinsed/ Irrigated with Saline -Foul Odor after Cleansing No -Bioengineered Tissue No -Bleeding Controlled with Pressure -Offloading No -Treatment Response Procedure Tolerated Well #15 left buttock cluster -Time 12:43 -Correct Patient Yes -Correct Side, Site, Position Yes -Correct Procedure Yes -Procedure Performed Yes -Type of Procedure Debridement -Clinical Debridement Subcutaneous -Post Debridement Size (cm) - Length 0.8 -Post Debridement Size (cm) - Width 1.3 -Post Debridement Size (cm) - Depth 0.1 -Total Square Cm 1.04 -Wound/Ulcer Outcome Not Healed -Ulcer Cleansing Rinsed/ Irrigated with Saline -Foul Odor after Cleansing No -Bioengineered Tissue No -Bleeding Controlled with Pressure -Offloading No -Treatment Response Procedure Tolerated Well #14 right buttock cluster -Time 12:44 -Correct Patient Yes -Correct Side, Site, Position Yes -Correct Procedure Yes -Procedure Performed Yes -Type of Procedure Debridement -Clinical Debridement Subcutaneous -Post Debridement Size (cm) - Length 5.0 -Post Debridement Size (cm) - Width 3.0 -Post Debridement Size (cm) - Depth 0.1 -Total Square Cm 15.00 -Wound/Ulcer Outcome Not Healed -Ulcer Cleansing Rinsed/ Irrigated with Saline -Foul Odor after Cleansing No -Bioengineered Tissue No -Bleeding Controlled with Pressure -Offloading No -Treatment Response Procedure Tolerated Well [See Physician Procedure note for Specifics] Pain Scale: 0-10 Numeric [Pain] -Is Patient Pain Free? Yes Musculoskeletal: No Muscle Wasting Neurological: Cranial nerves II-XII grossly intact Debridement Note Post-Debridement Measurements/Treatment WC - Nurse 2 - General Ulcer CM Notes Start: 01/29/20 08:07 Freq: Status: Active Protocol: Activity Type Activity Date Activity User E-Sign Co-Sign Detail Recorded Client Recorded Date Recorded By Document 01/29/20 08:59 MW [id number] 01/29/20 09:02 MW Document 02/05/20 12:43 MW [id number] 02/05/20 12:50 MW 01/29/20 02/05/20 08:59 12:43 Wound Center Nurse 2 #16 coccyx -Time 12:47 -Correct Patient Yes -Correct Side, Site, Position Yes -Correct Procedure Yes -Procedure Performed Yes -Type of Procedure Debridement -Clinical Debridement Subcutaneous -Post Debridement Size (cm) - Length 3.8 -Post Debridement Size (cm) - Width 0.8 -Post Debridement Size (cm) - Depth 0.3 -Total Square Cm 3.04 -Wound/Ulcer Outcome Not Healed -Ulcer Cleansing Rinsed/ Irrigated with Saline -Foul Odor after Cleansing No -Bioengineered Tissue No -Bleeding Controlled with Pressure -Offloading No -Treatment Response Procedure Tolerated Well #15 left buttock cluster -Time 09:00 12:43 -Correct Patient Yes Yes -Correct Side, Site, Position Yes Yes -Correct Procedure Yes Yes -Procedure Performed Yes Yes -Type of Procedure Debridement Debridement -Clinical Debridement Subcutaneous Subcutaneous -Post Debridement Size (cm) - Length 1.0 0.8 -Post Debridement Size (cm) - Width 2.0 1.3 -Post Debridement Size (cm) - Depth 0.1 0.1 -Total Square Cm 2.00 1.04 -Wound/Ulcer Outcome Not Healed Not Healed -Ulcer Cleansing Rinsed/ Rinsed/ Irrigated with Irrigated with Saline Saline -Foul Odor after Cleansing No No -Bioengineered Tissue No No -Bleeding Controlled with Pressure Pressure -Offloading No No -Treatment Response Procedure Procedure Tolerated Well Tolerated Well #14 right buttock cluster -Time 09:02 12:44 -Correct Patient Yes Yes -Correct Side, Site, Position Yes Yes -Correct Procedure Yes Yes -Procedure Performed Yes Yes -Type of Procedure Debridement Debridement -Clinical Debridement Subcutaneous Subcutaneous -Post Debridement Size (cm) - Length 3.3 5.0 -Post Debridement Size (cm) - Width 2.0 3.0 -Post Debridement Size (cm) - Depth 0.1 0.1 -Total Square Cm 6.60 15.00 -Wound/Ulcer Outcome Not Healed Not Healed -Ulcer Cleansing Rinsed/ Rinsed/ Irrigated with Irrigated with Saline Saline -Foul Odor after Cleansing No No -Bioengineered Tissue No No -Bleeding Controlled with Pressure Pressure -Offloading No No -Treatment Response Procedure Procedure Tolerated Well Tolerated Well #13 Coccyx -Time 08:59 -Correct Patient Yes -Correct Side, Site, Position Yes -Correct Procedure Yes -Procedure Performed No -Post Debridement Size (cm) - Length 0 -Post Debridement Size (cm) - Width 0 -Post Debridement Size (cm) - Depth 0 -Total Square Cm 0 -Wound/Ulcer Outcome Converted Pain Scale: 0-10 Numeric Is Patient Pain Free? Yes Yes Wound debrided: Right buttock cluster Wound Grade/Stage: Stage 2 Type of Debridement: Excisional debridement Anesthesia Used: 4% Lidocaine Solution Depth: Down to and including healthy tissue, in the subcutaneous layer Percentage of wound debrided: 100 Instrument Used: 3mm curette Tissue Removed: Left and devitalized tissue Severity: Fat Layer Exposed Amount of bleeding with debridement: Mild Bleeding Controlled with: Pressure Patient tolerated procedure well - Additional Wound Wound debrided: Left buttock cluster Wound Grade/Stage: Stage II Type of Debridement: Excisional debridement Anesthesia Used: 4% Lidocaine Solution Depth: Down to and including healthy tissue, in the subcutaneous layer Percentage of wound debrided: 100 Instrument Used: 3mm curette Tissue Removed: Slough and devitalized tissue Severity: Fat Layer Exposed Amount of bleeding with debridement: Mild Bleeding Controlled with: Pressure Patient tolerated procedure: Patient tolerated procedure well - Additional Wound Wound debrided: Coccygeal cluster Wound Grade/Stage: Stage III Type of Debridement: Excisional debridement Anesthesia Used: 4% Lidocaine Solution Depth: Down to and including healthy tissue, in the subcutaneous layer Percentage of wound debrided: 100 Instrument Used: 3mm curette Tissue Removed: Slough and devitalized tissue Severity: Fat Layer Exposed Amount of bleeding with debridement: Mild Bleeding Controlled with: Pressure Patient tolerated procedure: Patient tolerated procedure well Assessment/Plan Active Problems Stage II pressure ulcer of right buttock (Acute) Stage II pressure ulcer of left buttock (Acute) Decubitus ulcer of coccygeal region, stage 3 (Acute) Diabetes mellitus type II (Chronic) Assessment: Stage II pressure ulcers bilateral buttocks. Coccygeal ulcer. Radiation injury Plan: Debridement done as documented above. Procedure was well-tolerated. Labs ordered. Readdress culture at next visit. Patient in pain and wanted to sit. Continue moistened Fibracol to all ulcers. Gauze over top and change daily. Offloading strongly recommended. Also advised to avoid stool contamination. Patient states that she will try. Smoking cessation and increased protein intake also recommended. Her questions were answered and she was advised to call with any further questions or concerns. Follow-up in a week. This note was generated with [email or web address] dictation software. It may contain incorrect words, spelling, and punctuation that were not noted in checking the note before signing. [id number]: [id number] Ama subq tissue 20 sq cm/<
== END 2020-02-05 23:59 ==
LOC: WC 12:00
PROVIDERS: PCP Family Medicine; Visit Provider Internal Medicine
DX: E11.622 Type 2 diabetes mellitus with other skin ulcer (principal); L89.322 Pressure ulcer of left buttock, stage 2; L89.312 Pressure ulcer of right buttock, stage 2; L89.153 Pressure ulcer of sacral region, stage 3; L59.8 Other specified disorders of the skin and subcutaneous tissue related to radiation; Z92.3 Personal history of irradiation; Y84.2 Radiological procedure and radiotherapy as the cause of abnormal reaction of the patient, or of later complication, without mention of misadventure at the time of the procedure; F32.9 Major depressive disorder, single episode, unspecified; J44.9 Chronic obstructive pulmonary disease, unspecified; E78.5 Hyperlipidemia, unspecified; E11.21 Type 2 diabetes mellitus with diabetic nephropathy; E11.51 Type 2 diabetes mellitus with diabetic peripheral angiopathy without gangrene; I25.10 Atherosclerotic heart disease of native coronary artery without angina pectoris; Z95.1 Presence of aortocoronary bypass graft; Z79.82 Long term (current) use of aspirin; Z79.4 Long term (current) use of insulin; Z79.51 Long term (current) use of inhaled steroids; Z79.899 Other long term (current) drug therapy; F17.200 Nicotine dependence, unspecified, uncomplicated
CPT/HCPCS: 11042; 99213; G0463

== ENCOUNTER 2020-02-18 09:20 | Inpatient (IN) | payer MEDICARE, MEDICAID, SELFPAY ==
[2020-02-12 11:16] VITALS: BMI 45.2
[2020-02-18] VITALS (8 sets, daily range): BP systolic 106–147; BP diastolic 49–62; PULSE 67–85; RESP 12–18; TEMP 35.9–36.8; O2SAT 95–99; BMI 50.4; BMI 51.1
--- NOTE | 2020-02-18 09:47 | EKG12_ITS ---
Test Reason : HYPOTENSON Blood Pressure : / mmHG Vent. Rate : 070 BPM Atrial Rate : 070 BPM P-R Int : 168 ms QRS Dur : 146 ms QT Int : 442 ms P-R-T Axes : 066 -24 015 degrees QTc Int : 477 ms Normal sinus rhythm Right bundle branch block Lateral infarct , age undetermined Inferior infarct , age undetermined Abnormal ECG Confirmed by CRISTHIAN WU ([id number]), image editor RICARDO DASILVA ([id number]) on 02/23/2020 1:27:53 PM Referred By: ALONSO Confirmed By:CRISTHIAN WU
--- NOTE | 2020-02-18 09:48 | ED.DCSUM_ITS ---
- ER Visit Summary Date of Service: 02/18/20 Chief Complaint: Hypotension History of Present Illness: The patient is a 64 F past medical history of prior stroke, CAD, MIs, COPD, insulin-dependent diabetes and hypertension. Patient's had prior vulvar cancer and resection. Today she was undergoing cataract surgery of her right eye at the [facility]. Postoperatively she had hypotension and they sent her over. She denies any complaints. Said she is not recently been sick. She denies any nausea, vomiting, diarrhea or fever. She denies any chills or dysuria. She is a Guy catheter that was placed at home by home nurse on Sunday that she thinks is in the wrong spot. She denies any melena. Physical Examination: Older female no acute distress. Vital signs stable her current blood pressure is 106/62. Temperature 95. Pulse ox 95%. HEENT exam unremarkable. Moist his membranes. Neck nontender no lymphadenopathy. Lungs clear to auscultation bilaterally. Heart regular rhythm no murmurs. Abdomen morbidly obese but soft. Nontender. Normal bowel sounds. No peritoneal signs. Nondistended. No signs of obstruction. Patient is moving all 4 extremities. Neurologically she is awake and alert. She has no focal motor deficits. Test Results: [] Emergency Department Course and Treatment: Older female postop hypotension after having cataract surgery. She will undergo an infectious work-up. Also EKG and cardiac enzymes. Her Guy catheter be changed because it may be displaced. Treatment Plan: [] Disposition: [] Impression: Acute postop hypotension History of CAD with MIs and prior triple bypass History of prior stroke History of insulin-dependent diabetes This note was generated with [employer] dictation software. It may contain incorrect words, spelling, and punctuation that were not noted in review of the chart prior to signing ED Disposition - Plan for ED Patient: Referrals: Grea Snider III, MD [Primary Care Provider] -
--- NOTE | 2020-02-18 10:14 | RAD_ITS ---
STUDY: X-RAY CHEST REASON FOR EXAM: Female, 64 years old. Pat had cataract surg this am. pt hypotensive after the surg. TECHNIQUE: Single AP portable view of the chest. COMPARISON: Comparison is made with prior study dated April 21, 2016. FINDINGS: EKG electrodes are seen. The lungs are clear and expanded. There is no demonstrated pleural abnormality. Sternal cerclage wires and vascular clips are present from a prior sternotomy and coronary artery bypass graft procedure (CABG). Borderline cardiomegaly. Normal mediastinum and sridhar. Normal visualized pulmonary arteries. Normal visualized aortic arch and descending thoracic aorta. Normal visualized thoracic spine. Normal visualized ribs, clavicles, and shoulders. There is no demonstrated abnormality of the visualized soft tissue structures of the upper abdomen. RAD/Chest 1 View (Portable) IMPRESSION: Borderline cardiomegaly. Status post CABG. The lungs are clear. Electronically Signed: Andrea Burch, at 10:26 EDT , Service support ,
--- NOTE | 2020-02-18 10:17 | NURSING ---
New wright inserted per ESTEFANIA Bates. Old drainage notable to clots and blood. No urine output at this time, bladder scanned for 40 cc in bladder per Jana.
[2020-02-18 10:52] LABS: Absolute Lymphocyte Count 1.51 X10^3/uL (0.83-4.51); Absolute Neutrophil Count 5.3 X10^3/uL (2.0-7.7); Basophil# 0.04 X10^3/uL; Basophil% 0.5 % (0-1); Eosinophil# 0.36 X10^3/uL; Eosinophils% 4.5 % (0-5); Hematocrit 30.2 % (37-47); Hemoglobin 9.4 g/dL (12.0-15.0); Lymphocyte # 1.51 X10^3/ul (4.0); Lymphocyte % 19.1 % (19-41); Mean Corp Hgb Conc 31.1 g/dL (32-36); Mean Corpuscular Hgb 27.7 pg (27.0-32.0); Mean Corpuscular Volume 89.1 fL (81-99); Mean Platelet Vol. 10.3 fl (6.2-12.0); Monocyte# 0.69 X10^3/uL; Monocyte% 8.7 % (0-10); NRBC Flagged by Analyzer 0 % (0-5); Neutrophil # 5.29 X10^3/uL (2.7-7.7); Neutrophil % 66.8 % (47-70); Platelet Count 278 K/mm3 (150-450); RBC Distribution Width CV 13.9 % (11.6-14.6); RBC Distribution Width SD 45.1 fl (35.1-43.9); Red Blood Count 3.39 M/mm3 (4.2-5.4); White Blood Count 7.9 K/mm3 (4.4-11.0)
[2020-02-18 11:09] LABS: ALB/GLOB Ratio 0.5 RATIO (0.9-2.4); AST(SGOT) 21 U/L (15-37); Alanine Aminotransfer ALT/SGPT 18 U/L (13-56); Albumin, Serum 2.4 g/dL (3.2-5.0); Alkaline Phosphatase 62 U/L (45-117); Anion Gap 5 (5-15); BUN 24 mg/dL (7-18); BUN/Creat Ratio 21.6 RATIO (10-20); Calcium,Total 8.3 mg/dL (8.5-10.1); Chloride 102 mmol/L (98-107); Creatinine, Serum 1.11 mg/dL (0.55-1.02); EST Glomerular Filtration Rate 52 mL/min (>60); Est Glom Filt Rate - Afr Amer 63 mL/min (>60); Estimated Creatinine Clearance 45.47 ml/min; Globulin 4.6 g/dL (2.2-4.2); Glucose 63 mg/dL (74-106); Sodium Level 138 mmol/L (136-145)
[2020-02-18 12:24] LABS: Color, Urine Yellow (Yellow); Glucose, Dipstick Normal (Normal); Ketone-Dipstick 5 mg/dl (Negative); Leukocyte Esterase-Dipstick 500 /ul (Negative); Nitrite-Dipstick Negative (Negative); Occult Blood-Urine 250 /ul (Negative); Protein-Dipstick 100 mg/dl (Negative); Specific Gravity, Urine 1.015 (1.002-1.030); Urine Clarity Sl. Cloudy (Clear); Urine Urobilinogen 4 mg/dl (Normal)
[2020-02-18 12:28] LABS: Urine Bilirubin Dipstick 1 mg/dL (Negative)
[2020-02-18 12:34] LABS: Bacteria 2+ /hpf (None Seen); Mucous, Urine 1+ /hpf (<or=2+); Red Blood Cells-Urine 25-50 SEEN /hpf (0-5); Squamous Epithelial Cells - UA 0-5 SEEN /hpf (5-10); White Blood Cells 25-50 SEEN /hpf (0-5)
[2020-02-18 12:45] LABS: Bedside Glucose 65 mg/dL (70-110)
[2020-02-18] MEDS: Dextrose 50%-Water 25 GM/50 ML DISP.SYRIN IV (12:49)
--- NOTE | 2020-02-18 13:42 | CM.ED ---
Social Work Consult: Discharge Planning Informant: Nursing staff Nursing staff receiving phone call from home health nurse through [facility] with concerns about patient wound care management in the home. Nursing staff with [facility] reporting that patient has not been managing wound in the home. [facility] is planning to continue to be active with patient but wanting to express concerns. Met with patient in room. Introduced self as well as social service coordinator role. Patient is agreeable to speaking with this social service coordinator. Patient stating to live at home with sonJc in an apartment that is on 1 floor with elevator access to the apartment that is on the third floor. Patient stating to be active with [facility] and field nurse case manager is Leia Sepulveda. Patient stating to have an aide x3 days a week. Patient confirming to have a nurse home to the home 3 days a week through [facility] ([facility]) for wound management. Patient stating that patient wound care orders are daily and patient son manages wound care the other 4 days of the week. Patient expressing no concerns with patient son ability to be able to manage wound care. Patient is stating that [facility] recently changed which nurse came to change patient wounds and patient attributes this to why patient wounds are now not managed. Patient stating to sleep in lift chair and to remain in the lift chair all the time. Patient stating to stand pivot to potty chair when needed but that is the only time that patient is up. Patient stating that patient son is in the home 30/04 and does all grocery shopping for patient. Patient stating to also have food stamps. Patient stating to believe that things are going well at home. Patient is not open to assisted placement at this time. This social service coordinator is communicating to patient medical teams concern with how patient wounds currently are. Patient stating I would prefer to go home. Active support and listening provided. Collaborating with Dr. Ricci and nursing staff. After Dr. Ricci examined patient wounds, plan is for admission to hospital pending hospitalist acceptance. Dr. Ricci to update patient on this. Telephone call to [facility], Leia Sepulveda. Voicemail left on confidential voicemail stating that patient is being admitted to acute care at [facility]. This social service coordinator left this social workers contact number with any further questions on this day. Telephone call to [facility] ([facility])Renita. Updated on patient being admitted to acute unit. PLAN: Admit to Acute. Social Work to continue to follow as needed. Kendra ZUNIGA, CRISTEL
--- NOTE | 2020-02-18 14:02 | PCM.HP.STD ---
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 Status: Chronic (2) Stage II pressure ulcer of left buttock Status: Chronic (3) Tobacco abuse Status: Chronic (4) COPD (chronic obstructive pulmonary disease) Status: Chronic (5) Depression Status: Chronic (6) Dyslipidemia Status: Chronic (7) Diabetic neuropathy Status: Chronic (8) Peripheral vascular disease in diabetes mellitus Status: Chronic (9) Diabetes mellitus type II Status: Chronic (10) Coronary artery disease Status: Chronic Comment: Status post CABG (11) Cancer of vulva Status: Chronic Comment: Status post radical vulvectomy and radiotherapy in January 2014 History of Present Illness Date of Admission: 02/18/20 Chief Complaint: Postoperative hypotension. The patient is a 64 year old F with complicated past medical history as mentioned above was sent to the emergency department from [facility] for postoperative hypotension after she underwent right eye cataract surgery today. I am not sure how low was her blood pressure at the [facility]. At this time, her blood pressure is 107/60. Patient was sleepy but easily arousable, alert and oriented x3. She denied any complaints. She denied chest pain or shortness of breath. She denied dizziness, lightheadedness, syncope or presyncope. She denied abdominal pain, nausea or vomiting. She denied urinary symptoms. She mentioned that she was fasting since midnight and she did not eat until now. She was hypoglycemic, blood sugar was 63 mg/dL and she received D50 x2. 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 She had a history of type 2 diabetes mellitus, has been on glargine insulin as well as metformin and apparently, her blood glucose is not well controlled. She has history of vulvar cancer status post vulvectomy and radiation treatment and she is in remission. In the emergency department, her blood pressure was stable, was afebrile, other vital signs were stable. Her routine blood work was remarkable for hemoglobin of 9.4 g/dL, BUN of 24, creatinine 1.1. LFT was unremarkable. Lactic acid was normal. EKG revealed normal sinus rhythm with LBBB, no acute changes. Troponin is negative. Urinalysis revealed cloudy urine, positive for occult blood, there was 500 leukocyte esterase, 25-50 WBCs and 25-50 RBCs, 2+ bacteria. Chest x-ray revealed mild cardiomegaly, no acute infiltrate or consolidation. She is being admitted for postoperative hypotension, hypoglycemia, acute cystitis, intertrigo with probably secondary fungal infection as well as stage II bilateral buttocks pressure ulcers. Past Medical History Past Medical History (Chronic Problems): Chronic Problems Stage II pressure ulcer of right buttock (Chronic) Stage II pressure ulcer of left buttock (Chronic) Obesity, morbid (Chronic) Decubitus ulcer of coccygeal region, stage 3 (Chronic) Tobacco abuse (Chronic) COPD (chronic obstructive pulmonary disease) (Chronic) Depression (Chronic) Dyslipidemia (Chronic) Pressure ulcer of left heel, stage 2 (Chronic) Stage III pressure ulcer of sacral region (Chronic) Diabetic neuropathy (Chronic) Peripheral vascular disease in diabetes mellitus (Chronic) Diabetes mellitus type II (Chronic) Coronary artery disease (Chronic) Status post CABG Cancer of vulva (Chronic) Status post radical vulvectomy and radiotherapy in January 2014 Allergies povidone-iodine [From Betadine] Allergy (Verified 02/18/20 09:25) Itching topical betadine prednisone Allergy (Verified 02/18/20 09:25) Other Home Medications: Ambulatory Orders Medication Instructions Recorded Aspirin [Aspirin, Baby] 81 mg PO DAILY@0800 03/24/15 Atorvastatin Calcium [Lipitor] 80 mg PO QHS 03/24/15 Clopidogrel Bisulfate [Plavix] 75 mg PO DAILY 03/24/15 Gabapentin [Neurontin] 800 mg PO TIDCM 03/24/15 Metoprolol Tartrate [Lopressor 25 mg PO BID 03/24/15 (Beta [place])] Omeprazole [Prilosec] 20 mg PO DAILY 03/24/15 Insulin Glargine,Hum.rec.anlog 68 unit SQ QHS 07/20/15 [Lantus] Lisinopril [Zestril] 20 mg PO DAILY 11/09/15 Albuterol Aerosols [Ventolin 2.5 mg INHALATION Q6HWA.RT PRN 09/10/16 Aerosols] Diphenoxylate HCl/Atropine 1 each PO 4X/DAY PRN PRN 12/25/17 [Lomotil 2.5-0.025 mg Tablet] traMADol [Ultram (G)] 50 mg PO Q6H PRN PRN 12/25/17 Amitriptyline HCl 50 mg PO QHS 02/18/20 Duloxetine Hcl [Cymbalta] 60 mg PO DAILY 02/18/20 Ferrous Sulfate 325 mg PO DAILY@0800 02/18/20 Hydrochlorothiazide 12.5 mg PO DAILY 02/18/20 Lidocaine [Lidoderm Patch] 1 patch TP DAILY 02/18/20 Metformin HCl 500 mg PO BIDCM 02/18/20 Surgical History: cataract, cholecystectomy, coronary bypass surgery, tonsillectomy, - - Incision and drainage repeatedly of perirectal abscesses. 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 Denies: Anorexia, Chills, Fever Eyes: Denies: Blurred vision, Double vision, Drainage, Redness HEENT: Denies: Difficulty Hearing, Ear Pain, Eye Pain, Nasal Congestion, Sore Throat Cardiovascular: Denies: Chest Pain, Chest Pressure, Chest Tightness, Edema, Heaviness, Palpitations, Syncope Respiratory: Reports: Cough. Denies: Hemoptysis, Pleuritic Pain, Shortness of Breath, Sputum production, Wheezing Gastrointestinal: Denies: Abdominal Pain, Constipation, Diarrhea, Nausea, Vomiting Genitourinary: Denies: Dysuria, Frequency, Hematuria Musculoskeletal: Denies: Arm Pain, Back Pain, Foot Pain Skin: Denies: Dryness, Rash Neurological: Denies: Balance problems, Double vision, Change in Speech, Slurred speech, Confusion, Headaches, Numbness Psychiatric: Reports: Depression. Denies: Anxiety Endocrine: Denies: Change in Body Habitus, Polydipsia, Polyuria VTE Information - Inpt Only VTE Present on Admission: No VTE Mechan Device Prophylaxis: None VTE Pharm Prophylaxis ordered?: Yes - Physical Exam Vitals/I&O's: Vital Signs Temp Pulse Resp BP Pulse Ox 98.3 F 84 16 107/57 L 95 02/18/20 09:29 02/18/20 13:56 02/18/20 13:56 02/18/20 13:56 02/18/20 11:20 Oxygen Delivery Method Room Air Weight: 307 lb 15.772 oz Body Mass Index (BMI) 50.4 Finger Stick Blood Glucose 431 General: Alert, Oriented x3, Cooperative, No apparent distress, - - Sleepy but arousable. HEENT: Atraumatic, PERRLA, EOMI, Normocephalic Oral: Moist Mucosa, No Gingival or Mucosal Lesions/ Ulcerations Neck: Supple, No JVD, Negative Carotid Bruits, Trachea Midline, Thyroid Normal Size and Texture Lungs: Clear to auscultation, Normal air movement, No rhonchi, No wheeze, No rales, Diminished Cardiovascular: Regular rate, Regular Rhythm, Normal S1, Normal S2, PMI Normal Abdomen: Bowel Sounds Present, Soft, Non Tender, Non-Distended, No Hepato-splenomegaly, Obese - Morbidly obese. Extremities: No clubbing, No cyanosis, Edema - Stasis dermatitis, dry skin, lymphedema. Skin: No rashes, Ulcer/ Wound - Stage II bilateral buttock pressure ulcers Lymphatic: No Cervical, Supraclavicular, or Inguinal Adenopathy Neurological: Cranial nerves II-XII grossly intact, Motor Exam 5/5 strength throughout Psych/Mental Status: Normal Affect, Appropriate, Alert and oriented to time, place, person, mood and affect Laboratory Results 02/18/20 10:30: WBC 7.9, RBC 3.39 L, Hgb 9.4 L, Hct 30.2 L, MCV 89.1, MCH 27.7, MCHC 31.1 L, RDW Std Deviation 45.1 H, RDW Coeff of Ash 13.9, Plt Count 278, MPV 10.3, Immature Gran % (Auto) 0.400, Neut % (Auto) 66.8, Lymph % (Auto) 19.1, Clark % (Auto) 8.7, Eos % (Auto) 4.5, Baso % (Auto) 0.5, Absolute Neuts (auto) 5.3, Absolute Lymphs (auto) 1.51, Nucleated RBC % 0 02/18/20 10:30: Sodium 138, Potassium 4.0, Chloride 102, Carbon Dioxide 31.0, Anion Gap 5, BUN 24 H, Creatinine 1.11 H, Estim Creat Clear Calc 45.47, Est GFR (MDRD) Af Amer 63, Est GFR (MDRD) Non-Af 52 L, BUN/Creatinine Ratio 21.6 H, Glucose 63 L, Calcium 8.3 L, Total Bilirubin 0.40, AST 21, ALT 18, Alkaline Phosphatase 62, Troponin I < 0.015, Total Protein 7.0, Albumin 2.4 L, Globulin 4.6 H, Albumin/Globulin Ratio 0.5 L 02/18/20 10:30: Lactic Acid 1.0 02/18/20 12:13: Urine Color Yellow, Urine Clarity Sl. Cloudy, Urine pH 6.0, Ur Specific [place] 1.015, Urine Protein 100 H, Urine Glucose (UA) Normal, Urine Ketones 5 H, Urine Occult Blood 250 H, Urine Nitrite Negative, Urine Bilirubin 1 H, Urine Urobilinogen 4 H, Ur Leukocyte Esterase 500 H, Urine RBC 25-50 SEEN, Urine WBC 25-50 SEEN, Ur Squamous Epith Cells 0-5 SEEN, Urine Bacteria 2+, Urine Mucus 1+ 02/18/20 12:40: POC Glucose 65 L Clinical Impression(s) from Imaging Studies Chest X-Ray 02/18/20 10:14 IMPRESSION: Borderline cardiomegaly. Status post CABG. The lungs are clear. Electronically Signed: Andrea Burch, at 10:26 EDT , Service support , Current Medications Ceftriaxone Sodium (Rocephin) 1 gm in 50 mls @ 100 mls/hr IV X1 ONE Stop: 02/18/20 14:21 Assessment/Plan This is a 64 years old female patient was sent from [facility] for postoperative hypotension after she underwent right eye cataract extraction, found to have hypoglycemia as well as intertrigo with probable secondary fungal infection and acute cystitis. #1 postoperative hypotension: Reportedly, blood pressure was low at the [facility], not sure how much. In the emergency department, blood pressure stable. Patient denied any symptoms. EKG revealed normal sinus rhythm with RBBB, no acute changes. Troponin was negative. Chest x-ray showed no acute findings. Plan: Admit to PCU, cardiac monitoring, gentle IV fluids for hydration, monitor blood pressure, continue metoprolol, hold HCTZ and lisinopril, repeat CBC and BMP tomorrow morning, PT OT evaluation and treatment. #2 hypoglycemia: In context of history of type 2 diabetes mellitus. Patient has been fasting since midnight. Plan: Gentle IV fluids with D5 normal saline at 75 cc/h, Accu-Cheks q. before meals at bedtime, insulin sliding scale, hold Lantus and metformin, check hemoglobin A1c. #3 acute cystitis: Urinalysis reviewed. Patient does have bilateral pressure ulcers and intertrigo and reportedly, area has been contaminated with stool and urine. Urine catheter inserted. Plan to maintain Guy catheter, urine culture, start IV Rocephin. #4 bilateral groin/genital intertrigo with probable secondary fungal infection: Apparently, she has been on oral Diflucan. We will give her a dose of oral Diflucan 200 mg x 1, nystatin powder 3 times daily, wound care nurse consult. #5 stage II bilateral buttocks pressure ulcers/sacral ulcer: Has been following up with PCP and wound care center. She was seen around 1 week ago. Apparently, no evidence of infection. Plan for wound care nurse consult. #5 self-neglect/physical debility/not able to take care of herself: Patient lives at home with her son. She was told by by PCP, nursing staff and wound care nurse staff to not to sit in her buttocks but she is just sitting all the time. When I probed the issue to the patient that she is not able to take care of herself at home, she replied and said she does not want to go to SNF. Apparently, patient should be placed to residential facility. #7 type 2 diabetes mellitus: With current hypoglycemia. Plan for the diet, Accu-Cheks, insulin sliding scale, hold Lantus and metformin for now. #8 CAD status post CABG: Stable, no acute ischemic changes. Troponin is negative. Continue aspirin, statins, Plavix, metoprolol, hold lisinopril. #9 COPD: Pulse ox is maintained on room air. Chest x-ray reviewed as above. Plan for albuterol PRN. #10 hyperlipidemia: Continue statins. #11 history of vulval cancer: Status post radical vulvectomy and radiation treatment, in remission, stable. #12 DVT prophylaxis: Subcu Lovenox. This note was generated with Dragon dictation software. It may contain incorrect words, spelling, and punctuation that were not noted in checking the note before signing. Inpatient E&M: 80037 Init Hosp L3
[2020-02-18 14:10] LABS: Bedside Glucose 111 mg/dL (70-110)
--- NOTE | 2020-02-18 14:29 | CM.ED ---
Social Work Telephone call from Leia Sepulveda ([phone]). Leia updated on why patient is being admitted to hospital. Patient does receive an aide three days a week. 3 hours on Mondays and 2 ours on Sunday/Sunday. Patient has declined a medical alert and meal delivery. Leia also voicing concern about patient being able to manage wounds in the home. Social Work to continue to follow. Kendra ZUNIGA, CRISTEL
[2020-02-18] MEDS: Ceftriaxone 1 GM/50 ML BAG IV (14:34)
[2020-02-18] MEDS: Dextrose 5%/0.9% NaCl 1,000 ML 75 ML IV (16:01)
[2020-02-18 16:05] LABS: Hemoglobin A1c 6.5 % (4.2-6.3)
[2020-02-18 17:20] LABS: Bedside Glucose 175 mg/dL (70-110)
[2020-02-18] MEDS: Nystatin Powder 15gm Bottle 1 APPLIC TOPICAL ×2 (17:38→22:56)
[2020-02-18] MEDS: Fluconazole 100 MG Tablet 200 MG PO (17:41)
[2020-02-18] MEDS: 0.9% Saline Lock 10 ML Syringe IV (17:41)
[2020-02-18] MEDS: Gabapentin 800 MG Tablet PO (17:43)
[2020-02-18] MEDS: Insulin Lispro 100 UNIT/ML INSULN.PEN SC ×2 (17:48→23:45)
[2020-02-18] MEDS: Amitriptyline 25 MG Tablet 50 MG PO (22:49)
[2020-02-18] MEDS: Atorvastatin Calcium 80 MG Tablet 40 MG PO (22:50)
[2020-02-18 23:11] LABS: Bedside Glucose 240 mg/dL (70-110)
[2020-02-19] VITALS (12 sets, daily range): BP systolic 115–145; BP diastolic 43–67; PULSE 66–85; RESP 16–20; TEMP 36.6–36.9; O2SAT 95–98
[2020-02-19 06:05] LABS: Absolute Lymphocyte Count 1.16 X10^3/uL (0.83-4.51); Absolute Neutrophil Count 4.3 X10^3/uL (2.0-7.7); Basophil# 0.01 X10^3/uL; Basophil% 0.2 % (0-1); Eosinophil# 0.27 X10^3/uL; Eosinophils% 4.3 % (0-5); Hematocrit 26.6 % (37-47); Hemoglobin 8.3 g/dL (12.0-15.0); Lymphocyte # 1.16 X10^3/ul (4.0); Lymphocyte % 18.4 % (19-41); Mean Corp Hgb Conc 31.2 g/dL (32-36); Mean Corpuscular Hgb 26.9 pg (27.0-32.0); Mean Corpuscular Volume 86.4 fL (81-99); Monocyte# 0.51 X10^3/uL; Monocyte% 8.1 % (0-10); NRBC Flagged by Analyzer 0 % (0-5); Neutrophil # 4.34 X10^3/uL (2.7-7.7); Neutrophil % 68.8 % (47-70); Platelet Count 205 K/mm3 (150-450); RBC Distribution Width CV 13.9 % (11.6-14.6); RBC Distribution Width SD 43.9 fl (35.1-43.9); Red Blood Count 3.08 M/mm3 (4.2-5.4); White Blood Count 6.3 K/mm3 (4.4-11.0)
[2020-02-19] MEDS: Nystatin Powder 15gm Bottle 1 APPLIC TOPICAL ×3 (06:14→22:11)
[2020-02-19] MEDS: Insulin Lispro 100 UNIT/ML INSULN.PEN SC ×3 (06:21→17:03)
[2020-02-19 06:27] LABS: Anion Gap 3 (5-15); BUN 27 mg/dL (7-18); BUN/Creat Ratio 28.7 RATIO (10-20); Calcium,Total 8.1 mg/dL (8.5-10.1); Chloride 107 mmol/L (98-107); Creatinine, Serum 0.94 mg/dL (0.55-1.02); EST Glomerular Filtration Rate 63 mL/min (>60); Est Glom Filt Rate - Afr Amer 77 mL/min (>60); Estimated Creatinine Clearance 53.69 ml/min; Glucose 233 mg/dL (74-106); Potassium 4.3 mmol/L (3.5-5.1); Sodium Level 140 mmol/L (136-145)
[2020-02-19 06:30] LABS: Bedside Glucose 228 mg/dL (70-110)
--- NOTE | 2020-02-19 07:45 | PCM.PROGNOTE ---
Subjective: Chief complaint: Follow-up after admission for postoperative hypertension, hyperglycemia, acute cystitis and intertrigo. Patient seen and examined. No acute events overnight. Today, she denied any complaints. Denied chest pain or shortness of breath. Denied dizziness or lightheadedness. Nursing staff reported that patient is refusing almost everything, refusing to do Accu-Cheks, refusing to turn. Her vital signs are stable. - Physical Exam Vitals/I&O's: Vital Signs Temp Pulse Resp BP Pulse Ox 97.9 F 78 16 138/67 H 96 02/19/20 04:45 02/19/20 04:45 02/19/20 04:45 02/19/20 04:45 02/19/20 04:45 Oxygen Delivery Method Room Air Weight: 307 lb 5.19 oz Body Mass Index (BMI) 51.1 Finger Stick Blood Glucose 111 Intake and Output for Last 24 Hours 02/17/20 02/18/20 02/19/20 23:59 23:59 23:59 Intake Total 50 / 300 1490 / 1490 Output Total 50 / 275 625 / 625 Balance 0 865 / 865 General: Alert, Oriented x3, Cooperative, No apparent distress HEENT: Atraumatic, PERRLA, EOMI, Normocephalic Oral: Moist Mucosa, No Gingival or Mucosal Lesions/ Ulcerations Neck: Supple, No JVD, Negative Carotid Bruits, Trachea Midline, Thyroid Normal Size and Texture Lungs: Clear to auscultation, Normal air movement, No rhonchi, No wheeze, No rales, Diminished Cardiovascular: Regular rate, Regular Rhythm, Normal S1, Normal S2, PMI Normal Abdomen: Bowel Sounds Present, Soft, Non Tender, Non-Distended, No Hepato-splenomegaly, Obese - Morbidly obese. Extremities: No clubbing, No cyanosis, Edema - Edema, stasis dermatitis, dry skin. Skin: No rashes, Ulcer/ Wound Lymphatic: No Cervical, Supraclavicular, or Inguinal Adenopathy Neurological: Cranial nerves II-XII grossly intact, Neuro grossly intact Psych/Mental Status: Normal Affect, Appropriate, Alert and oriented to time, place, person, mood and affect Laboratory Results 02/18/20 10:30: WBC 7.9, RBC 3.39 L, Hgb 9.4 L, Hct 30.2 L, MCV 89.1, MCH 27.7, MCHC 31.1 L, RDW Std Deviation 45.1 H, RDW Coeff of Ash 13.9, Plt Count 278, MPV 10.3, Immature Gran % (Auto) 0.400, Neut % (Auto) 66.8, Lymph % (Auto) 19.1, [place] % (Auto) 8.7, Eos % (Auto) 4.5, Baso % (Auto) 0.5, Absolute Neuts (auto) 5.3, Absolute Lymphs (auto) 1.51, Nucleated RBC % 0 02/18/20 10:30: Sodium 138, Potassium 4.0, Chloride 102, Carbon Dioxide 31.0, Anion Gap 5, BUN 24 H, Creatinine 1.11 H, Estim Creat Clear Calc 45.47, Est GFR (MDRD) Af Amer 63, Est GFR (MDRD) Non-Af 52 L, BUN/Creatinine Ratio 21.6 H, Glucose 63 L, Calcium 8.3 L, Total Bilirubin 0.40, AST 21, ALT 18, Alkaline Phosphatase 62, Troponin I < 0.015, Total Protein 7.0, Albumin 2.4 L, Globulin 4.6 H, Albumin/Globulin Ratio 0.5 L 02/18/20 10:30: Lactic Acid 1.0 02/18/20 10:30: Hemoglobin A1c 6.5 H 02/18/20 12:13: Urine Color Yellow, Urine Clarity Sl. Cloudy, Urine pH 6.0, Ur Specific [place] 1.015, Urine Protein 100 H, Urine Glucose (UA) Normal, Urine Ketones 5 H, Urine Occult Blood 250 H, Urine Nitrite Negative, Urine Bilirubin 1 H, Urine Urobilinogen 4 H, Ur Leukocyte Esterase 500 H, Urine RBC 25-50 SEEN, Urine WBC 25-50 SEEN, Ur Squamous Epith Cells 0-5 SEEN, Urine Bacteria 2+, Urine Mucus 1+ 02/18/20 12:40: POC Glucose 65 L 02/18/20 14:04: POC Glucose 111 H 02/18/20 16:14: POC Glucose 175 H 02/18/20 22:42: POC Glucose 240 H 02/19/20 05:56: WBC 6.3, RBC 3.08 L, Hgb 8.3 L, Hct 26.6 L, MCV 86.4, MCH 26.9 L, MCHC 31.2 L, RDW Std Deviation 43.9, RDW Coeff of Ash 13.9, Plt Count 205, MPV 10.0, Immature Gran % (Auto) 0.200, Neut % (Auto) 68.8, Lymph % (Auto) 18.4 L, [place] % (Auto) 8.1, Eos % (Auto) 4.3, Baso % (Auto) 0.2, Absolute Neuts (auto) 4.3, Absolute Lymphs (auto) 1.16, Nucleated RBC % 0 02/19/20 05:56: Sodium 140, Potassium 4.3, Chloride 107, Carbon Dioxide 30.0, Anion Gap 3 L, BUN 27 H, Creatinine 0.94, Estim Creat Clear Calc 53.69, Est GFR (MDRD) Af Amer 77, Est GFR (MDRD) Non-Af 63, BUN/Creatinine Ratio 28.7 H, Glucose 233 H, Calcium 8.1 L 02/19/20 06:19: POC Glucose 228 H Current Medications Acetaminophen (Tylenol) 650 mg PO Q6H PRN PRN PRN Reason: Pain Score 1-10/Temp > 100.7 F Albuterol Sulfate (Ventolin Aerosols) 2.5 mg INHALATION Q4H PRN PRN PRN Reason: Shortness of breath, wheezing Amitriptyline HCl (Elavil) 50 mg PO QHS [facility] Last Admin: 02/18/20 22:49 Dose: 50 mg Documented by: Aspirin (Aspirin, Baby) 81 mg PO DAILY@0800 [facility] Atorvastatin Calcium (Lipitor) 40 mg PO QHS [facility] Last Admin: 02/18/20 22:50 Dose: 40 mg Documented by: Bromfenac Sodium (Prolensa) 1 drop RIGHT EYE DAILY [facility] Clopidogrel Bisulfate (Plavix) 75 mg PO DAILY [facility] Dextrose (D50w Syringe) 0 gm IV X1 PRN; Protocol PRN Reason: Hypoglycemia Diphenoxylate HCl/Atropine (Lomotil) 1 tablet PO 4X/DAY PRN PRN PRN Reason: Diarrhea Duloxetine HCl (Cymbalta) 60 mg PO DAILY [facility] Enoxaparin Sodium (Lovenox) 40 mg SC DAILY [facility] Ferrous Sulfate (Ferrous Sulfate) 325 mg PO DAILY@0800 [facility] Gabapentin (Neurontin) 800 mg PO TIDCM [facility] Last Admin: 02/18/20 17:43 Dose: 800 mg Documented by: Glucagon () 1 mg IM .X1 PRN PRN Reason: Hypoglycemia Ceftriaxone Sodium (Rocephin) 1 gm in 50 mls @ 100 mls/hr IV Q24 [facility] Insulin Glargine (Lantus (Bkc)) 68 units SC QHS [facility] Insulin Human Lispro (Humalog Kwikpen (Bkc)) 0 unit SC Q6 [facility]; Protocol Last Admin: 02/19/20 06:21 Dose: 2 units Documented by: Lisinopril (Zestril) 20 mg PO DAILY [facility] Metoprolol Tartrate (Lopressor (Beta [place])) 25 mg PO DAILY [facility] Nutritional Formula (Lactose Free) (Glucerna Shake) 120 ml PO TIDCM [facility] Last Admin: 02/18/20 17:48 Dose: Not Given Documented by: Nystatin (Mycostatin Powder) 1 applic TOPICAL TID [facility]; Protocol Last Admin: 02/19/20 06:14 Dose: 1 applicatio Documented by: Ofloxacin (Ofloxacin) 1 ml RIGHT EYE 4X/DAY [facility] Ondansetron HCl (Zofran) 4 mg IV Q8H PRN PRN PRN Reason: NAUSEA/VOMITING Pantoprazole Sodium (Protonix) 20 mg PO DAILY [facility] Senna/Docusate Sodium (Senokot-S, Gina-Colace) 2 tablet PO BID PRN PRN PRN Reason: Constipation Sodium Chloride () 10 - 40 ml IV UD PRN PRN Reason: SALINE FLUSH Last Admin: 02/18/20 17:41 Dose: 10 ml Documented by: Tramadol HCl (Ultram) 50 mg PO BID PRN PRN Reason: Pain Score 4-10/10 Medical Necessity - Tobacco Use Smoking Status: Light Smoker (<10/day) Tobacco Use: Cigarettes Assessment/Plan This is a 64 years old female patient was sent from [facility] for postoperative hypotension after she underwent right eye cataract extraction, found to have hypoglycemia as well as intertrigo with probable secondary fungal infection and acute cystitis. #1 postoperative hypotension: Blood pressure stabilized, it goes up to 140 systolic. Patient is asymptomatic. EKG revealed normal sinus rhythm with RBBB, no acute changes. Troponin was negative. Chest x-ray showed no acute findings. Plan to continue metoprolol, resume lisinopril. #2 hypoglycemia: In context of history of type 2 diabetes mellitus. She was on D5 normal saline, discontinue. Blood sugar started to go up to 200s. Hemoglobin A1c is 6.5%. Plan to resume night dose of Lantus, continue sliding scale, keep holding metformin. #3 acute cystitis: She is on IV Rocephin, urine cultures pending. She has been afebrile, no leukocytosis. Plan to continue same treatment. #4 bilateral groin/genital intertrigo with probable secondary fungal infection: Apparently, she has been on oral Diflucan. She received 1 dose of oral Diflucan on admission, she is on nystatin powder 3 times daily. Awaiting wound care nurse evaluation. #5 stage II bilateral buttocks pressure ulcers/sacral ulcer: Has been following up with PCP and wound care center. She was seen around 1 week ago. Apparently, no evidence of infection. Plan as above. #5 self-neglect/physical debility/not able to take care of herself: Patient lives at home with her son. She was told by by PCP, nursing staff and wound care nurse staff to not to sit in her buttocks but she is just sitting all the time. Today, I put the issue with going to SNF again and patient was reluctant. Awaiting PT OT evaluation, will discuss with the social work job titles and the complex case manager. #7 type 2 diabetes mellitus: Blood sugar stabilized. Hemoglobin A1c is 6.5%. Plan to continue sliding scale, resume Lantus, keep holding metformin as above. #8 CAD status post CABG: Stable, no acute ischemic changes. Troponin is negative. Continue aspirin, statins, Plavix, metoprolol, hold lisinopril. #9 COPD: Pulse ox is maintained on room air. Chest x-ray reviewed as above. Continue albuterol PRN. #10 hyperlipidemia: Continue statins. #11 history of vulval cancer: Status post radical vulvectomy and radiation treatment, in remission, stable. #12 DVT prophylaxis: Subcu Lovenox. This note was generated with [employer] software. It may contain incorrect words, spelling, and punctuation that were not noted in checking the note before signing. Inpatient E&M: 05338 Subs Hosp L2
[2020-02-19] MEDS: Ferrous Sulfate 325 MG Tablet PO (09:54)
[2020-02-19] MEDS: Pantoprazole Sodium 20 MG Tablet PO (09:54)
[2020-02-19] MEDS: Aspirin 81 MG TAB.CHEW PO (09:54)
[2020-02-19] MEDS: Clopidogrel Bisulfate 75 MG Tablet PO (09:55)
[2020-02-19] MEDS: DULoxetine Hcl 60 MG Capsule PO (09:55)
[2020-02-19] MEDS: Metoprolol Tartrate 25 MG Tablet PO (09:55)
[2020-02-19] MEDS: Gabapentin 800 MG Tablet PO ×3 (09:55→17:03)
[2020-02-19] MEDS: OFLOXACIN 5 ML DROPS 1 ML RIGHT EYE ×4 (09:56→22:22)
[2020-02-19] MEDS: Enoxaparin 40 MG/0.4 ML Syringe SC (09:56)
[2020-02-19] MEDS: Ceftriaxone 1 GM/50 ML BAG IV (10:02)
[2020-02-19] MEDS: Lisinopril 20 MG Tablet PO (10:02)
--- NOTE | 2020-02-19 10:44 | CASEMGMT ---
Addendum entered by Kassie Larios 02/19/20 12:20: SW received call from pt's CM Leiaharman Sepulveda requesting update. SW provided update and informed Leia that at this time pt is still not agreeable to SNF and prefers to return home at discharge. Leia asked to be called when pt discharges and for discharge paperwork to be faxed to [phone]. Original Note: Social Work Note SW met with pt to confirm discharge plans. It is being recommended that pt go to SNF at discharge. SW introduced self and role at [facility]. Pt is alert and orientated x3. SW spoke with pt about going to SNF and benefits of going to SNF for short term rehabilitation/wound care. Pt states I don't want to go to a SNF where I could get the Barriga. Pt states I've worked too hard to not get the Barriga so I don't want to go somewhere where I could get it. SW informed pt that there are some SNF that haven't had any cases and pt could go there. Pt asked if [facility] had any cases as she had gone to [facility] before for rehabilitation. SW informed pt that this worker didn't know but could call [facility] and ask. Pt state again No, I will just go home. Pt states that she feels safe at home and she is getting the care that she needs. SW again stated that there were some concerns about pt's wound care at home. Pt adamantly refusing SNF, states she will be returning home at discharge with resumption of HHC, aide services, and help from her son. SW informed pt that if she changed her mind about going to SNF to let this worker know. Pt states understanding. Plan: Pt wishes to discharge home with resumption of HHC, Aide services and help from her son. If pt does return home at discharge, APS referral will likely need to be made due to concerns of pt getting appropriate care in the home. Kassie Larios CUPOLA TENDER HELPER, OFFSET SECOND PRESS OPERATOR
--- NOTE | 2020-02-19 12:02 | CASEMGMT ---
ESTEFANIA BURKS NOTE: Reviewed SW notes. Pt adamant that she wants to return home w/resumption of C services. Call placed to [facility] to inquire about what services she was receiving. Pt had SN for wound care. Resumption order placed. Sayda from [facility] spoke with this ESTEFANIA BURKS and states she wanted to make sure it had been communicated about their concerns with pt returning home. Sayda was made aware SW has been working with pt and has addressed these concerns but that pt is still adamant that she wants to return home and is refusing SNF. She was made aware anticipate pt will be discharged home tomorrow w/resumption of C services and that plans to make APS referral. She voices appreciation of this and states they will also plan to do APS referral. Piyush POWER RN, CM
--- NOTE | 2020-02-19 12:55 | NURSING ---
pt utilized freestyle peewee check for blood glucose check, at 230
--- NOTE | 2020-02-19 12:56 | NURSING ---
pt reported that she has an appointment with [facility] Monday 02/19 at 1315 and will need to be DC prior to that time. pt was also asking about transportation, will discuss with psychotherapist social worker and complex case manager
[2020-02-19] MEDS: Glucerna Shake 120 ML LIQUID PO ×2 (13:06→17:02)
[2020-02-19] MEDS: Amitriptyline 25 MG Tablet 50 MG PO (22:14)
[2020-02-19] MEDS: Atorvastatin Calcium 80 MG Tablet 40 MG PO (22:14)
--- NOTE | 2020-02-19 22:16 | NURSING ---
pt used freestyle peewee check for blood glucose check, at 250
[2020-02-20] VITALS (8 sets, daily range): BP systolic 155–162; BP diastolic 57–73; PULSE 78–89; RESP 18; TEMP 36.8–37.1; O2SAT 95–98
--- NOTE | 2020-02-20 00:04 | NURSING ---
pt used freestyle peewee to check for blood glucose level, at 270
[2020-02-20] MEDS: Insulin Lispro 100 UNIT/ML INSULN.PEN SC ×2 (00:05→06:25)
[2020-02-20] MEDS: Nystatin Powder 15gm Bottle 1 APPLIC TOPICAL (06:21)
--- NOTE | 2020-02-20 06:25 | NURSING ---
pt used freestyle peewee to check for blood glucose level, at 241
[2020-02-20] MEDS: Ferrous Sulfate 325 MG Tablet PO (08:44)
[2020-02-20] MEDS: Aspirin 81 MG TAB.CHEW PO (08:44)
[2020-02-20] MEDS: Glucerna Shake 120 ML LIQUID PO (08:44)
[2020-02-20] MEDS: Gabapentin 800 MG Tablet PO (08:44)
[2020-02-20] MEDS: DULoxetine Hcl 60 MG Capsule PO (09:46)
[2020-02-20] MEDS: Metoprolol Tartrate 25 MG Tablet PO (09:46)
[2020-02-20] MEDS: OFLOXACIN 5 ML DROPS 1 ML RIGHT EYE (09:47)
[2020-02-20] MEDS: Clopidogrel Bisulfate 75 MG Tablet PO (09:47)
[2020-02-20] MEDS: Ceftriaxone 1 GM/50 ML BAG IV (09:48)
[2020-02-20] MEDS: Pantoprazole Sodium 20 MG Tablet PO (09:48)
[2020-02-20] MEDS: Lisinopril 20 MG Tablet PO (09:48)
--- NOTE | 2020-02-20 10:26 | NURSING ---
Pt BG 226 at 0800 prior to breakfast pt used own Freestyle device to check as ordered
--- NOTE | 2020-02-20 10:27 | DCINST_ITS ---
You will use the following diet at home:: Calorie/Carbohydrate Controlled (specify 1200, 1400, etc) - 1800 danny., Cardiac Your food should be the consistency of: Regular Discharge Activity: Return to Normal Activity Weight Bearing Status: Weight bearing as tolerated Call your doctor if you observe: Fever of 101 or Higher, Shortness of breath, Dizziness, Fainting spells, Chest pain, Increased palpitations (irregular heartbeat), Uncontrolled pain Allergies/Adverse Reactions: Allergies povidone-iodine [From Betadine] Allergy (Verified 02/18/20 09:25) Itching topical betadine prednisone Allergy (Verified 02/18/20 15:44) tiny mouth ulcers Medications to take at Discharge Aspirin [Aspirin, Baby] 81 mg PO DAILY@0800 03/24/15 Atorvastatin Calcium [Lipitor] 80 mg PO QHS 03/24/15 Clopidogrel Bisulfate [Plavix] 75 mg PO DAILY 03/24/15 Gabapentin [Neurontin] 800 mg PO TIDCM 03/24/15 Metoprolol Tartrate [Lopressor (beta liza)] 25 mg PO BID 03/24/15 Omeprazole [Prilosec] 20 mg PO DAILY 03/24/15 Insulin Glargine,Hum.rec.anlog [Lantus] 68 unit SQ QHS 07/20/15 Lisinopril [Zestril] 20 mg PO DAILY 11/09/15 Albuterol Aerosols [Ventolin Aerosols] 2.5 mg INHALATION Q6HWA.RT PRN 09/10/16 Diphenoxylate HCl/Atropine [Lomotil 2.5-0.025 mg Tablet] 1 each PO 4X/DAY PRN PRN 12/25/17 traMADol [Ultram] 50 mg PO Q6H PRN PRN 12/25/17 Amitriptyline HCl 50 mg PO QHS 02/18/20 Duloxetine Hcl [Cymbalta] 60 mg PO DAILY 02/18/20 Ferrous Sulfate 325 mg PO DAILY@0800 02/18/20 Hydrochlorothiazide 12.5 mg PO DAILY 02/18/20 Lidocaine [Lidoderm Patch] 1 patch TP DAILY 02/18/20 Metformin HCl 500 mg PO BIDCM 02/18/20 Nystatin Powder [Mycostatin Powder] 1 applic TOPICAL TID #2 bottle 02/20/20 The following prescriptions were given: Nystatin Powder [Mycostatin Powder] 1 applic TOPICAL TID #2 bottle Transmission Status: Pending to [facility]/pharmacy #[id number] Primary Care Physician: Gera Snider III, MD [Primary Care Provider] - Please follow up with your Primary Care Physician in: 1 week. Test Results: Test results from this visit will be discussed in further detail at your follow- up appointment, if applicable. Please Follow Up With: wound care center When: this coming week.
--- NOTE | 2020-02-20 11:18 | CASEMGMT ---
Social Work SW spoke with physician who states pt is ready for discharge on this date. Pt stating she has an appointment today at 1315 at [facility] as a followup to surgery earlier in the week. Phone call to [facility] and appointment date, time and importance confirmed. Pt stating she usually uses [employer] for transportation to appointments. Phone call to Pancho at [facility] and transportation arranged with [employer] ([phone], confirmation #[id number]) for pickup between 10:30 and 1:30. [employer] will pick pt up at [facility] and take to [facility] and after appointment will take pt home. Pt notified and is agreeable. Phone call to [facility] letting them know that [facility] waiting room is closed from 12-1 for lunch and they confirm they will sit with pt in the Van until office is open. Pt notified of this arrangement and pt is agreeable. SW offered to call pt son to discuss discharge plan but pt denied stating pt son aware she is coming home today. Phone call to [facility] and spoke with Dang fire control technician g gonzalo BURKS and informed of d/c home today and requested services be resumed. D/C orders faxed to [facility]. Phone call to [facility] Fernando and informed of d/c home and orders faxed. They will resume care with [facility] for [facility] care. Referral made to [facility] JERALD and Chandni will followup on Sunday with face to face visit. Nursing made aware of transportation times. MAICOL Little
[2020-02-20] MEDS: traMADol 50 MG Tablet PO (11:31)
--- NOTE | 2020-02-20 11:56 | NURSING ---
pt took one sip of monurol and said I'm not drinking this shit
--- NOTE | 2020-02-20 12:42 | DS.PCM_ITS ---
Discharge Date and Diagnosis Date of Admission: 02/18/20 Date of Discharge: 02/20/20 - Primary Discharge Diagnosis #1 postoperative hypotension, resolved. #2 postoperative hypoglycemia, resolved. #3 multiresistant Proteus mirabilis acute cystitis. #4 bilateral groin/genital intertrigo with secondary fungal infection. #5 chronic stage II bilateral buttock pressure ulcers/sacral ulcer, without evidence of acute infection. #6 self-neglect/physical debility, not able to take care of herself, refused to go to SNF. - Secondary Discharge Diagnosis Chronic Problems Stage II pressure ulcer of right buttock (Chronic) Stage II pressure ulcer of left buttock (Chronic) Obesity, morbid (Chronic) Decubitus ulcer of coccygeal region, stage 3 (Chronic) Tobacco abuse (Chronic) COPD (chronic obstructive pulmonary disease) (Chronic) Depression (Chronic) Dyslipidemia (Chronic) Pressure ulcer of left heel, stage 2 (Chronic) Stage III pressure ulcer of sacral region (Chronic) Diabetic neuropathy (Chronic) Peripheral vascular disease in diabetes mellitus (Chronic) Diabetes mellitus type II (Chronic) Coronary artery disease (Chronic) Status post CABG Cancer of vulva (Chronic) Status post radical vulvectomy and radiotherapy in January 2014 Hospital Course and Treatment Imaging Results: Clinical Impression(s) from Imaging Studies Chest X-Ray 02/18/20 10:14 IMPRESSION: Borderline cardiomegaly. Status post CABG. The lungs are clear. Electronically Signed: Andrea Burch, at 10:26 EDT , Service support , Consultations 02/18/20 15:36 Consult: Onc/Wound/pe teacher Routine Comment: Operations: None, - - I&D Procedures: EKG Summary of Care Provided: Patient seen and examined on day of discharge. Buttock and sacral ulcers examined and there was no evidence of acute infection. Patient denied any significant complaints. Her vital signs are stable. This is a 64 years old female patient was sent from [facility] for postoperative hypotension after she underwent right eye cataract extraction, found to have hypoglycemia as well as intertrigo with probable secondary fungal infection and acute cystitis. #1 postoperative hypotension: Reportedly, blood pressure was low at the [facility] [place] after surgery. Since patient came to the emergency department, her blood pressure stabilized. Her EKG revealed normal sinus rhythm with LBBB which is chronic, no acute changes. Chest x-ray showed no acute findings. Her blood pressure medications was held for 1 day. Blood pressure improved with gentle IV fluids and her antihypertensive medications resumed. #2 hypoglycemia: In context of history of type 2 diabetes mellitus. Attributed to being fast overnight before surgery. She received D50 bolus x2 in the ED and received gentle fluids with D5 normal saline afterwards. Hemoglobin A1c is 6.5%. Blood sugar improved and started to go up. She was started back on Lantus and upon discharge, she was resumed back on her previous home medications. #3 Multiresistant Proteus mirabilis acute cystitis: Treated with IV Rocephin, urine cultures revealed Proteus mirabilis that was resistant to ampicillin, Unasyn, cefazolin, Rocephin, ciprofloxacin, Levaquin and Zosyn. Which was sensitive to cefepime, imipenem and ertapenem. Patient remained afebrile throughout admission, had no symptoms and had no leukocytosis. She was given 1 dose of fosfomycin which should take care of the resistant Proteus mirabilis. #4 bilateral groin/genital intertrigo with probable secondary fungal infection: Treated with 1 dose of oral Diflucan and nystatin powder 3 times daily. #5 stage II bilateral buttocks pressure ulcers/sacral ulcer: Has been following up with PCP and wound care center. There was no evidence of acute infection. Recommended to not to sit on her buttocks for long time, follow-up with wound care center this coming week. #5 self-neglect/physical debility/not able to take care of herself: Patient lives at home with her son. Obviously patient is not able to take care of herself at home. I spoke with the patient multiple times about going to retirement facility but she refused. I mentioned to the patient that her buttock ulcers will not heal up if she is going to sit on her buttocks for a long time. Patient refused to go to SNF and she was discharged to home with home health. #7 type 2 diabetes mellitus: Blood sugar stabilized. Continued on Lantus and metformin. #8 CAD status post CABG: Stable, Continued on aspirin, statins, Plavix, metoprolol, hold lisinopril. #9 COPD: Pulse ox is maintained on room air. Continued on albuterol PRN. #10 hyperlipidemia: Continued statins. #11 history of vulval cancer: Status post radical vulvectomy and radiation treatment, in remission, stable. Patient discharged home with home health in a stable condition, discharged on nystatin 3 times daily for her groin for intertrigo, received 1 dose of fosfomycin for resistant Proteus mirabilis which should take care of it, continued on her previous home medications without any changes, highly recommended to follow-up with wound care center this coming week, follow-up with PCP in 1 week. This note was generated with [employer] dictation software. It may contain incorrect words, spelling, and punctuation that were not noted in checking the note before signing. - Physical Exam Vitals/I&O's: Vital Signs Temp Pulse Resp BP Pulse Ox 98.2 F 89 18 155/73 H 98 02/20/20 11:58 02/20/20 11:58 02/20/20 11:58 02/20/20 11:58 02/20/20 11:58 Oxygen Delivery Method Room Air Weight: 307 lb 5.19 oz Body Mass Index (BMI) 51.1 Finger Stick Blood Glucose 111 Intake and Output for Last 24 Hours 02/18/20 02/19/20 02/20/20 23:59 23:59 23:59 Intake Total 50 / 300 2440 / 2440 790 / 790 Output Total 50 / 275 1725 / 1725 2500 / 2500 Balance 0 / 25 715 / 715 -1710 / -1710 General: Alert, Oriented x3, Cooperative, No apparent distress HEENT: Atraumatic, PERRLA, EOMI, Normocephalic Oral: Moist Mucosa, No Gingival or Mucosal Lesions/ Ulcerations Neck: Supple, No JVD, Negative Carotid Bruits, Trachea Midline, Thyroid Normal Size and Texture Lungs: Clear to auscultation, Normal air movement, No rhonchi, No wheeze, No rales, Diminished Cardiovascular: Regular rate, Regular Rhythm, Normal S1, Normal S2, PMI Normal Abdomen: Bowel Sounds Present, Soft, Non Tender, Non-Distended, No Hepato- splenomegaly, Obese - Morbidly obese. Extremities: No clubbing, No cyanosis, Edema - Edema, stasis dermatitis, dry skin. Skin: No rashes, Ulcer/ Wound Lymphatic: No Cervical, Supraclavicular, or Inguinal Adenopathy Neurological: Cranial nerves II-XII grossly intact, Neuro grossly intact Psych/Mental Status: Normal Affect, Appropriate Microbiology Past 72 Hours 02/18/20 12:13 Urine Catheter - Catheter Urine Culture - Final Proteus mirabilis Discharge Activity: Return to Normal Activity Weight Bearing Status: Weight bearing as tolerated Call your doctor if you observe: Fever of 101 or Higher, Shortness of breath, Dizziness, Fainting spells, Chest pain, Increased palpitations (irregular heartbeat), Uncontrolled pain Home Medications: Medications to take at Discharge Aspirin [Aspirin, Baby] 81 mg PO DAILY@0800 03/24/15 Atorvastatin Calcium [Lipitor] 80 mg PO QHS 03/24/15 Clopidogrel Bisulfate [Plavix] 75 mg PO DAILY 03/24/15 Gabapentin [Neurontin] 800 mg PO TIDCM 03/24/15 Metoprolol Tartrate [Lopressor (beta liza)] 25 mg PO BID 03/24/15 Omeprazole [Prilosec] 20 mg PO DAILY 03/24/15 Insulin Glargine,Hum.rec.anlog [Lantus] 68 unit SQ QHS 07/20/15 Lisinopril [Zestril] 20 mg PO DAILY 11/09/15 Albuterol Aerosols [Ventolin Aerosols] 2.5 mg INHALATION Q6HWA.RT PRN 09/10/16 Diphenoxylate HCl/Atropine [Lomotil 2.5-0.025 mg Tablet] 1 each PO 4X/DAY PRN PRN 12/25/17 traMADol [Ultram] 50 mg PO Q6H PRN PRN 12/25/17 Amitriptyline HCl 50 mg PO QHS 02/18/20 Duloxetine Hcl [Cymbalta] 60 mg PO DAILY 02/18/20 Ferrous Sulfate 325 mg PO DAILY@0800 02/18/20 Hydrochlorothiazide 12.5 mg PO DAILY 02/18/20 Lidocaine [Lidoderm Patch] 1 patch TP DAILY 02/18/20 Metformin HCl 500 mg PO BIDCM 02/18/20 Nystatin Powder [Mycostatin Powder] 1 applic TOPICAL TID #2 bottle 02/20/20 Following Prescrptions Were Given to Patient: Nystatin Powder [Mycostatin Powder] 1 applic TOPICAL TID #2 bottle Transmission Status: Received by [id number] Primary Care Physician: Gera Snider III, MD [Primary Care Provider] - Please follow up with your Primary Care Physician in: 1 week. Please Follow Up With: wound care center When: this coming week. Disposition: Home with Home Health Minutes spent on discharge:: 33 Patient Condition:: Stable Medical Necessity - Tobacco Use Smoking Status: Light Smoker (<10/day) Tobacco Use: Cigarettes Meaningful Use Info Meaningful Use Diagnoses (Choose all that apply): None applicable Inpatient E&M: 60510 Disch Hosp
--- NOTE | 2020-02-20 13:59 | NURSING ---
1000 Pt refused to roll or turn. Pt refused to let me see the buttocks area. She stated My buttocks is sore and it has been sore. The doctor look at it earlier.
--- NOTE | 2020-02-20 15:35 | CASEMGMT ---
ESTEFANIA BURKS NOTE: H/P, Progress note, and d/c summary faxed to [facility] per their request. They were made aware pt has discharged today. They stated they have received the d/c instructions. Piyush POWER RN CM
--- NOTE | 2020-02-23 14:12 | CASEMGMT ---
ESTEFANIA [facility] PHONE CALL DC DATE: 02.20.2020 DC DISPOSITION: Home with [facility] DIAGNOSIS: post op hypotension, georgette buttock pressure ulcer LACE/STRATA: 07/10 F/U APPTS MADE PRIOR TO DC: no Call deferred. Pt home with [facility]. DC information has been faxed to them. Rogelio POWER RN AC
== END 2020-02-20 12:00 | disposition home health service (06) | DRG 312 ==
LOC: ED 11:00 → MS3 14:13
PROVIDERS: Admitting Provider Hospitalist; Emergency Provider Emergency Medicine; PCP Family Medicine; Visit Provider Hospitalist
DX: I95.81 Postprocedural hypotension (principal); N30.00 Acute cystitis without hematuria; Z16.30 Resistance to unspecified antimicrobial drugs; Z68.43 Body mass index [BMI] 50.0-59.9, adult; I45.2 Bifascicular block; B96.4 Proteus (mirabilis) (morganii) as the cause of diseases classified elsewhere; L30.4 Erythema intertrigo; R53.81 Other malaise; L89.322 Pressure ulcer of left buttock, stage 2; L89.312 Pressure ulcer of right buttock, stage 2; L89.152 Pressure ulcer of sacral region, stage 2; E66.01 Morbid (severe) obesity due to excess calories; J44.9 Chronic obstructive pulmonary disease, unspecified; F32.9 Major depressive disorder, single episode, unspecified; E78.5 Hyperlipidemia, unspecified; L89.622 Pressure ulcer of left heel, stage 2; E11.40 Type 2 diabetes mellitus with diabetic neuropathy, unspecified; E11.51 Type 2 diabetes mellitus with diabetic peripheral angiopathy without gangrene; I25.10 Atherosclerotic heart disease of native coronary artery without angina pectoris; I10 Essential (primary) hypertension; E11.649 Type 2 diabetes mellitus with hypoglycemia without coma; F17.210 Nicotine dependence, cigarettes, uncomplicated; Z79.02 Long term (current) use of antithrombotics/antiplatelets; Z86.73 Personal history of transient ischemic attack (TIA), and cerebral infarction without residual deficits; Z95.1 Presence of aortocoronary bypass graft; Z74.1 Need for assistance with personal care; Z79.4 Long term (current) use of insulin; Z85.41 Personal history of malignant neoplasm of cervix uteri; Z79.82 Long term (current) use of aspirin; Z79.899 Other long term (current) drug therapy
CPT/HCPCS: 36415; 51702; 71045; 80048; 80053; 81001; 82962; 83036; 83605; 84484; 85025; 87077; 87086; 87088; 87186; 93005; 97802; 99285; J7050; A4216

== ENCOUNTER 2020-02-26 09:00 | Outpatient (RCR) | payer MEDICARE, MEDICAID, SELFPAY ==
[2020-02-06 00:22] VITALS: BP 166/68; PULSE 85; RESP 16; TEMP 35.9
[2020-02-12 11:16] VITALS: BP 131/44; PULSE 85; RESP 20; TEMP 36; BMI 45.2
--- NOTE | 2020-02-12 12:28 | PCM.WC.PN ---
(1) Decubitus ulcer of coccygeal region, stage 3 Status: Acute Current Visit: Yes Code(s): L89.153 - Pressure ulcer of sacral region, stage 3 (2) Obesity, morbid Status: Acute Current Visit: Yes Code(s): E66.01 - Morbid (severe) obesity due to excess calories (3) Stage II pressure ulcer of left buttock Status: Acute Current Visit: Yes Code(s): L89.322 - Pressure ulcer of left buttock, stage 2 (4) Stage II pressure ulcer of right buttock Status: Acute Current Visit: Yes Code(s): L89.312 - Pressure ulcer of right buttock, stage 2 Type of Wound Date of Service: 02/12/20 Chief Complaint: Recurrent Bilateral decubitus Ulcers. 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 She states that her ulcers have been well managed by her home nurse however due to the pandemic, there was a change in her regular scheduled nurse. Current episode has been present for weeks. She is largely sedentary and sleeps in her chair as well. History of Tobacco abuse. At this time, she denies chills, fever, nausea, vomiting or change in bowel movements. Progress of Wound: Worsening. Significant urinary contamination and some stool contamination as well. Patient admits to waking up soaked in urine. - Physical Exam Vital Signs Temp Pulse Resp BP 96.8 F L 85 20 H 131/44 H 02/12/20 11:16 02/12/20 11:16 02/12/20 11:16 02/12/20 11:16 General: Alert, Oriented x3, Cooperative, No apparent distress HEENT: Atraumatic, Normocephalic Oral: Moist Mucosa Neck: Supple Lungs: Normal air movement Abdomen: Obese Extremities: No cyanosis Skin: Ulcer/ Wound Wound Measurements and Assessment WC - Nurse 1 - General Ulcer Measurement Start: 02/12/20 11:16 Freq: Status: Active Protocol: Activity Type Activity Date Activity User E-Sign Co-Sign Detail Recorded Client Recorded Date Recorded By Document 02/12/20 11:16 DV [id number] 02/12/20 11:27 DV 02/12/20 11:16 Wound Center Nurse 1 [Ulcer Assessment] #16 coccyx -Combined with other wound No -Current Size (cm) - Length 0.5 -Current Size (cm) - Width 0.1 -Current Size (cm) - Depth 0.6 -Total Square Cm 0.05 -Photo Taken No -Epithelialization None Present -Tunneling No -Undermining/Tunneling No -Circular Undermining No -Classification - Thickness Full Thickness without Exposed Support Structure -Exudate Amt Large -Exudate Type Serosanguineous -Wound Margin Indistinct, Non -Visible -Granulation Amt None Present (0 %) -Granulation Quality N/A -Slough/Fibrin Yes -Necrosis Amt Large (67-100%) -Necrotic Tissue Type Adherent Slough -Structure Exposed None/Limited to Skin Breakdown -Texture (Gina-wound Skin Appearance) Assessed, Scarring,Rash -Moisture (Gina-wound Skin Appearance Assessed, ) Maceration, Weeping -Color (Gina-wound Skin Appearance) Assessed, Erythema -Temperature (Gina-wound Skin No Abnormality Appearance) (Pt Warm) -Tenderness on Palpation (Gina-wound Yes Skin Appearance) -Foul Odor after Cleansing Yes -Anesthetic Used 4% Lidocaine Solution #15 left buttock cluster -Combined with other wound No -Current Size (cm) - Length 1.8 -Current Size (cm) - Width 1.5 -Current Size (cm) - Depth 0.1 -Total Square Cm 2.70 -Photo Taken No -Epithelialization None Present -Tunneling No -Undermining/Tunneling No -Circular Undermining No -Classification - Thickness Full Thickness without Exposed Support Structure -Exudate Amt Large -Exudate Type Serosanguineous -Wound Margin Indistinct, Non -Visible -Granulation Amt None Present (0 %) -Granulation Quality N/A -Slough/Fibrin Yes -Necrosis Amt Large (67-100%) -Necrotic Tissue Type Adherent Slough -Structure Exposed None/Limited to Skin Breakdown -Texture (Gina-wound Skin Appearance) Assessed, Scarring,Rash -Moisture (Gina-wound Skin Appearance Assessed, ) Maceration, Weeping -Color (Gina-wound Skin Appearance) Assessed, Erythema -Temperature (Gina-wound Skin No Abnormality Appearance) (Pt Warm) -Tenderness on Palpation (Gina-wound Yes Skin Appearance) -Foul Odor after Cleansing No -Anesthetic Used 4% Lidocaine Solution #14 right buttock cluster -Combined with other wound No -Combined with (Name of Wound-Exactly 5.2 as it is documented) -Current Size (cm) - Length 3.1 -Current Size (cm) - Width 0.1 -Total Square Cm 0.31 -Photo Taken No -Epithelialization None Present -Tunneling No -Undermining/Tunneling No -Circular Undermining No -Classification - Thickness Full Thickness without Exposed Support Structure -Exudate Amt Large -Exudate Type Serosanguineous -Wound Margin Indistinct, Non -Visible -Granulation Amt None Present (0 %) -Granulation Quality N/A -Slough/Fibrin Yes -Necrosis Amt Large (67-100%) -Necrotic Tissue Type Adherent Slough -Structure Exposed None/Limited to Skin Breakdown -Texture (Gina-wound Skin Appearance) Assessed, Scarring,Rash -Moisture (Gina-wound Skin Appearance Assessed, ) Weeping -Color (Gina-wound Skin Appearance) Assessed, Erythema -Temperature (Gina-wound Skin No Abnormality Appearance) (Pt Warm) -Tenderness on Palpation (Gina-wound Yes Skin Appearance) -Foul Odor after Cleansing No -Anesthetic Used 4% Lidocaine Solution WC - Nurse 2 - General Ulcer CM Notes Start: 02/12/20 11:16 Freq: Status: Active Protocol: Activity Type Activity Date Activity User E-Sign Co-Sign Detail Recorded Client Recorded Date Recorded By Document 02/12/20 11:56 MW [id number] 02/12/20 12:03 MW 02/12/20 11:56 Wound Center Nurse 2 [Procedure/Treatment] #16 coccyx -Time 11:57 -Correct Patient Yes -Correct Side, Site, Position Yes -Correct Procedure Yes -Procedure Performed Yes -Type of Procedure Debridement -Clinical Debridement Subcutaneous -Post Debridement Size (cm) - Length 4.0 -Post Debridement Size (cm) - Width 1.0 -Post Debridement Size (cm) - Depth 0.3 -Total Square Cm 4.00 -Wound/Ulcer Outcome Not Healed -Ulcer Cleansing Rinsed/ Irrigated with Saline -Foul Odor after Cleansing No -Bioengineered Tissue No -Bleeding Controlled with Pressure -Offloading No -Treatment Response Procedure Tolerated Well #15 left buttock cluster -Time 12:01 -Correct Patient Yes -Correct Side, Site, Position Yes -Correct Procedure Yes -Procedure Performed Yes -Type of Procedure Debridement -Clinical Debridement Subcutaneous -Post Debridement Size (cm) - Length 6.0 -Post Debridement Size (cm) - Width 3.0 -Post Debridement Size (cm) - Depth 0.1 -Total Square Cm 18.00 -Wound/Ulcer Outcome Not Healed -Ulcer Cleansing Rinsed/ Irrigated with Saline -Foul Odor after Cleansing No -Bioengineered Tissue No -Bleeding Controlled with Pressure -Offloading No -Treatment Response Procedure Tolerated Well #14 right buttock cluster -Time 12:01 -Correct Patient Yes -Correct Side, Site, Position Yes -Correct Procedure Yes -Procedure Performed Yes -Type of Procedure Debridement -Clinical Debridement Subcutaneous -Post Debridement Size (cm) - Length 7.0 -Post Debridement Size (cm) - Width 5.0 -Post Debridement Size (cm) - Depth 0.1 -Total Square Cm 35.00 -Wound/Ulcer Outcome Not Healed -Ulcer Cleansing Rinsed/ Irrigated with Saline -Foul Odor after Cleansing No -Bioengineered Tissue No -Bleeding Controlled with Pressure -Offloading No -Treatment Response Procedure Tolerated Well [See Physician Procedure note for Specifics] Pain Scale: 0-10 Numeric [Pain] -Is Patient Pain Free? Yes Musculoskeletal: No Muscle Wasting Neurological: Cranial nerves II-XII grossly intact Psych/Mental Status: Normal Affect Debridement Note Post-Debridement Measurements/Treatment WC - Nurse 2 - General Ulcer CM Notes Start: 02/12/20 11:16 Freq: Status: Active Protocol: Activity Type Activity Date Activity User E-Sign Co-Sign Detail Recorded Client Recorded Date Recorded By Document 02/12/20 11:56 MW [id number] 02/12/20 12:03 MW 02/12/20 11:56 Wound Center Nurse 2 #16 coccyx -Time 11:57 -Correct Patient Yes -Correct Side, Site, Position Yes -Correct Procedure Yes -Procedure Performed Yes -Type of Procedure Debridement -Clinical Debridement Subcutaneous -Post Debridement Size (cm) - Length 4.0 -Post Debridement Size (cm) - Width 1.0 -Post Debridement Size (cm) - Depth 0.3 -Total Square Cm 4.00 -Wound/Ulcer Outcome Not Healed -Ulcer Cleansing Rinsed/ Irrigated with Saline -Foul Odor after Cleansing No -Bioengineered Tissue No -Bleeding Controlled with Pressure -Offloading No -Treatment Response Procedure Tolerated Well #15 left buttock cluster -Time 12:01 -Correct Patient Yes -Correct Side, Site, Position Yes -Correct Procedure Yes -Procedure Performed Yes -Type of Procedure Debridement -Clinical Debridement Subcutaneous -Post Debridement Size (cm) - Length 6.0 -Post Debridement Size (cm) - Width 3.0 -Post Debridement Size (cm) - Depth 0.1 -Total Square Cm 18.00 -Wound/Ulcer Outcome Not Healed -Ulcer Cleansing Rinsed/ Irrigated with Saline -Foul Odor after Cleansing No -Bioengineered Tissue No -Bleeding Controlled with Pressure -Offloading No -Treatment Response Procedure Tolerated Well #14 right buttock cluster -Time 12:01 -Correct Patient Yes -Correct Side, Site, Position Yes -Correct Procedure Yes -Procedure Performed Yes -Type of Procedure Debridement -Clinical Debridement Subcutaneous -Post Debridement Size (cm) - Length 7.0 -Post Debridement Size (cm) - Width 5.0 -Post Debridement Size (cm) - Depth 0.1 -Total Square Cm 35.00 -Wound/Ulcer Outcome Not Healed -Ulcer Cleansing Rinsed/ Irrigated with Saline -Foul Odor after Cleansing No -Bioengineered Tissue No -Bleeding Controlled with Pressure -Offloading No -Treatment Response Procedure Tolerated Well Pain Scale: 0-10 Numeric Is Patient Pain Free? Yes Wound debrided: Right buttock cluster Wound Grade/Stage: Stage II Type of Debridement: Excisional debridement Anesthesia Used: 4% Lidocaine Solution Depth: Down to and including healthy tissue, in the subcutaneous layer Percentage of wound debrided: 100 Instrument Used: 5mm curette Tissue Removed: Slough and devitalized tissue Severity: Fat Layer Exposed Amount of bleeding with debridement: Mild Bleeding Controlled with: Pressure Patient tolerated procedure well - Additional Wound Wound debrided: Left buttock cluster Wound Grade/Stage: Stage II Type of Debridement: Excisional debridement Anesthesia Used: 4% Lidocaine Solution Depth: Down to and including healthy tissue, in the subcutaneous layer Percentage of wound debrided: 100 Instrument Used: 5mm curette Tissue Removed: Slough and devitalized tissue Severity: Fat Layer Exposed Amount of bleeding with debridement: Mild Bleeding Controlled with: Pressure Patient tolerated procedure: Patient tolerated procedure well - Additional Wound Wound debrided: Coccygeal ulcer cluster Wound Grade/Stage: Stage III Type of Debridement: Excisional debridement Anesthesia Used: 4% Lidocaine Solution Depth: Down to and including healthy tissue, in the subcutaneous layer Percentage of wound debrided: 100 Instrument Used: 5mm curette Tissue Removed: Slough and devitalized tissue Severity: Fat Layer Exposed Amount of bleeding with debridement: Mild Bleeding Controlled with: Pressure Patient tolerated procedure: Patient tolerated procedure well Assessment/Plan Active Problems Stage II pressure ulcer of right buttock (Acute) Stage II pressure ulcer of left buttock (Acute) Obesity, morbid (Acute) Decubitus ulcer of coccygeal region, stage 3 (Acute) Assessment: Stage II pressure ulcers bilateral buttocks. Coccygeal ulcer. Radiation injury Plan: Debridement done as documented above, severe was well-tolerated. Urinary contamination. Some stool also noted. Recommend Guy's catheter to help with urinary contamination. Aquacel extra daily to twice daily depending on drainage. Gauze over top. Offloading strongly recommended. Also advised to avoid stool contamination. Patient states that she will try. Smoking cessation and increased protein intake also recommended. Exercise as tolerated discussed. Her questions were answered and she was advised to call with any further questions or concerns. Follow-up in a week. This note was generated with [employer] dictation software. It may contain incorrect words, spelling, and punctuation that were not noted in checking the note before signing. [id number]: [id number] Ama subq tissue 20 sq cm/< Add On Codes: 74784 Ama subq tissue add-on
[2020-02-26 11:06] VITALS: BP 145/69; PULSE 89; RESP 20; TEMP 36.1; BMI 45.2
--- NOTE | 2020-02-26 11:48 | PN.PCM_ITS ---
(1) Decubitus ulcer of coccygeal region, stage 3 Status: Chronic Current Visit: Yes Code(s): L89.153 - Pressure ulcer of sacral region, stage 3 (2) Obesity, morbid Status: Chronic Current Visit: Yes Code(s): E66.01 - Morbid (severe) obesity due to excess calories (3) Stage II pressure ulcer of left buttock Status: Chronic Current Visit: Yes Code(s): L89.322 - Pressure ulcer of left buttock, stage 2 (4) Stage II pressure ulcer of right buttock Status: Chronic Current Visit: Yes Code(s): L89.312 - Pressure ulcer of right buttock, stage 2 Type of Wound Date of Service: 02/26/20 Chief Complaint: Recurrent Bilateral decubitus Ulcers. 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 She states that her ulcers have been well managed by her home nurse however due to the pandemic, there was a change in her regular scheduled nurse. Current episode has been present for weeks. She is largely sedentary and sleeps in her chair as well. History of Tobacco abuse. At this time, she denies chills, fever, nausea, vomiting or change in bowel mov ements. Progress of Wound: S/P recent hospital admission. Declined detention post admission. No significant improvement in decubitus ulcers. Has a Guy. - Physical Exam Vital Signs Temp Pulse Resp BP 96.9 F L 89 20 H 145/69 H 02/26/20 11:06 02/26/20 11:06 02/26/20 11:06 02/26/20 11:06 General: Alert, Oriented x3, Cooperative, No apparent distress HEENT: Atraumatic, Normocephalic Oral: Moist Mucosa Neck: Supple Lungs: Normal air movement Abdomen: Non Tender, Obese Extremities: No cyanosis Skin: Ulcer/ Wound Wound Measurements and Assessment WC - Nurse 1 - General Ulcer Measurement Start: 02/12/20 11:16 Freq: Status: Active Protocol: Activity Type Activity Date Activity User E-Sign Co-Sign Detail Recorded Client Recorded Date Recorded By Document 02/26/20 11:06 DL [id number] 02/26/20 11:19 DL 02/26/20 11:06 Wound Center Nurse 1 [Ulcer Assessment] #17 R Buttocks Inf -Current Size (cm) - Length 2 -Current Size (cm) - Width 1 -Current Size (cm) - Depth 0.1 -Total Square Cm 2 -Photo Taken Yes -Exudate Amt Medium -Exudate Type Sanguineous -Wound Margin Distinct, Outline Attached -Granulation Amt None Present (0 %) -Necrosis Amt Large (67-100%) -Necrotic Tissue Type Adherent Slough -Structure Exposed N/A -Texture (Gina-wound Skin Appearance) Scarring -Moisture (Gina-wound Skin Appearance No Abnormality ) -Color (Gina-wound Skin Appearance) Ecchymosis, Erythema -Temperature (Gina-wound Skin No Abnormality Appearance) (Pt Warm) -Tenderness on Palpation (Gina-wound No Skin Appearance) -Ulcer Cleansing Wound Cleanser -Foul Odor after Cleansing No -Anesthetic Used 4% Lidocaine Solution #16 coccyx -Current Size (cm) - Length 0.4 -Current Size (cm) - Width 0.5 -Current Size (cm) - Depth 0.9 -Total Square Cm 0.20 -Photo Taken No -Exudate Amt Small -Exudate Type Serosanguineous -Wound Margin Distinct, Outline Attached -Granulation Amt None Present (0 %) -Necrosis Amt Large (67-100%) -Necrotic Tissue Type Adherent Slough -Structure Exposed N/A -Texture (Gina-wound Skin Appearance) Scarring -Moisture (Gina-wound Skin Appearance No Abnormality, ) Weeping -Color (Gina-wound Skin Appearance) Ecchymosis, Rubor -Temperature (Gina-wound Skin No Abnormality Appearance) (Pt Warm) -Tenderness on Palpation (Gina-wound No Skin Appearance) -Ulcer Cleansing Wound Cleanser -Foul Odor after Cleansing No -Anesthetic Used 4% Lidocaine Solution #15 left buttock cluster -Current Size (cm) - Length 3 -Current Size (cm) - Width 3.6 -Current Size (cm) - Depth 0.1 -Total Square Cm 10.8 -Photo Taken No -Exudate Amt Small -Exudate Type Serosanguineous -Wound Margin Indistinct, Non -Visible -Granulation Amt None Present (0 %) -Granulation Quality [place] -Necrosis Amt Large (67-100%) -Necrotic Tissue Type Adherent Slough -Structure Exposed N/A -Texture (Gina-wound Skin Appearance) Scarring -Moisture (Gina-wound Skin Appearance No Abnormality ) -Color (Gina-wound Skin Appearance) Ecchymosis, Rubor -Temperature (Gina-wound Skin No Abnormality Appearance) (Pt Warm) -Tenderness on Palpation (Gina-wound Yes Skin Appearance) -Ulcer Cleansing Wound Cleanser -Foul Odor after Cleansing No -Anesthetic Used 4% Lidocaine Solution #14 right buttock cluster -Current Size (cm) - Length 3.5 -Current Size (cm) - Width 3.5 -Current Size (cm) - Depth 0.1 -Total Square Cm 12.25 -Photo Taken No -Exudate Amt Small -Exudate Type Serosanguineous -Wound Margin Distinct, Outline Attached -Granulation Amt None Present (0 %) -Necrosis Amt Large (67-100%) -Necrotic Tissue Type Adherent Slough -Structure Exposed N/A -Texture (Gina-wound Skin Appearance) Scarring -Moisture (Gina-wound Skin Appearance No Abnormality ) -Color (Gina-wound Skin Appearance) Ecchymosis, Rubor -Tenderness on Palpation (Gina-wound Yes Skin Appearance) -Ulcer Cleansing Wound Cleanser -Foul Odor after Cleansing No -Anesthetic Used 4% Lidocaine Solution WC - Nurse 2 - General Ulcer CM Notes Start: 02/12/20 11:16 Freq: Status: Active Protocol: Activity Type Activity Date Activity User E-Sign Co-Sign Detail Recorded Client Recorded Date Recorded By Document 02/26/20 11:40 MW [id number] 02/26/20 11:47 MW 02/26/20 11:40 Wound Center Nurse 2 [Procedure/Treatment] #17 R Buttocks Inf -Time 11:41 -Correct Patient Yes -Correct Side, Site, Position Yes -Correct Procedure Yes -Procedure Performed No -Wound/Ulcer Outcome Not Healed -Ulcer Cleansing Rinsed/ Irrigated with Saline -Foul Odor after Cleansing No -Bioengineered Tissue No -Bleeding Controlled with Pressure -Offloading No -Treatment Response Procedure Tolerated Well #16 coccyx -Time 11:41 -Correct Patient Yes -Correct Side, Site, Position Yes -Correct Procedure Yes -Procedure Performed Yes -Type of Procedure Debridement -Clinical Debridement Subcutaneous -Post Debridement Size (cm) - Length 4.0 -Post Debridement Size (cm) - Width 1.0 -Post Debridement Size (cm) - Depth 1.0 -Total Square Cm 4.00 -Wound/Ulcer Outcome Not Healed -Ulcer Cleansing Rinsed/ Irrigated with Saline -Foul Odor after Cleansing No -Bioengineered Tissue No -Bleeding Controlled with Pressure -Offloading No -Treatment Response Procedure Tolerated Well #15 left buttock cluster -Time 11:41 -Correct Patient Yes -Correct Side, Site, Position Yes -Correct Procedure Yes -Procedure Performed Yes -Type of Procedure Debridement -Clinical Debridement Subcutaneous -Post Debridement Size (cm) - Length 1.5 -Post Debridement Size (cm) - Width 1.5 -Post Debridement Size (cm) - Depth 0.1 -Total Square Cm 2.25 -Wound/Ulcer Outcome Not Healed -Ulcer Cleansing Rinsed/ Irrigated with Saline -Foul Odor after Cleansing No -Bioengineered Tissue No -Bleeding Controlled with Pressure -Offloading No -Treatment Response Procedure Tolerated Well #14 right buttock cluster -Time 11:41 -Correct Patient Yes -Correct Side, Site, Position Yes -Correct Procedure Yes -Procedure Performed Yes -Type of Procedure Debridement -Clinical Debridement Subcutaneous -Post Debridement Size (cm) - Length 6.0 -Post Debridement Size (cm) - Width 5.0 -Post Debridement Size (cm) - Depth 0.1 -Total Square Cm 30.00 -Wound/Ulcer Outcome Not Healed -Ulcer Cleansing Rinsed/ Irrigated with Saline -Foul Odor after Cleansing No -Bioengineered Tissue No -Bleeding Controlled with Pressure -Offloading No -Treatment Response Procedure Tolerated Well [See Physician Procedure note for Specifics] Neurological: Cranial nerves II-XII grossly intact Psych/Mental Status: Normal Affect Debridement Note Post-Debridement Measurements/Treatment WC - Nurse 2 - General Ulcer CM Notes Start: 02/12/20 11:16 Freq: Status: Active Protocol: Activity Type Activity Date Activity User E-Sign Co-Sign Detail Recorded Client Recorded Date Recorded By Document 02/12/20 11:56 MW [id number] 02/12/20 12:03 MW Document 02/26/20 11:40 MW [id number] 02/26/20 11:47 MW 02/12/20 02/26/20 11:56 11:40 Wound Center Nurse 2 #17 R Buttocks Inf -Time 11:41 -Correct Patient Yes -Correct Side, Site, Position Yes -Correct Procedure Yes -Procedure Performed No -Wound/Ulcer Outcome Not Healed -Ulcer Cleansing Rinsed/ Irrigated with Saline -Foul Odor after Cleansing No -Bioengineered Tissue No -Bleeding Controlled with Pressure -Offloading No -Treatment Response Procedure Tolerated Well #16 coccyx -Time 11:57 11:41 -Correct Patient Yes Yes -Correct Side, Site, Position Yes Yes -Correct Procedure Yes Yes -Procedure Performed Yes Yes -Type of Procedure Debridement Debridement -Clinical Debridement Subcutaneous Subcutaneous -Post Debridement Size (cm) - Length 4.0 4.0 -Post Debridement Size (cm) - Width 1.0 1.0 -Post Debridement Size (cm) - Depth 0.3 1.0 -Total Square Cm 4.00 4.00 -Wound/Ulcer Outcome Not Healed Not Healed -Ulcer Cleansing Rinsed/ Rinsed/ Irrigated with Irrigated with Saline Saline -Foul Odor after Cleansing No No -Bioengineered Tissue No No -Bleeding Controlled with Pressure Pressure -Offloading No No -Treatment Response Procedure Procedure Tolerated Well Tolerated Well #15 left buttock cluster -Time 12:01 11:41 -Correct Patient Yes Yes -Correct Side, Site, Position Yes Yes -Correct Procedure Yes Yes -Procedure Performed Yes Yes -Type of Procedure Debridement Debridement -Clinical Debridement Subcutaneous Subcutaneous -Post Debridement Size (cm) - Length 6.0 1.5 -Post Debridement Size (cm) - Width 3.0 1.5 -Post Debridement Size (cm) - Depth 0.1 0.1 -Total Square Cm 18.00 2.25 -Wound/Ulcer Outcome Not Healed Not Healed -Ulcer Cleansing Rinsed/ Rinsed/ Irrigated with Irrigated with Saline Saline -Foul Odor after Cleansing No No -Bioengineered Tissue No No -Bleeding Controlled with Pressure Pressure -Offloading No No -Treatment Response Procedure Procedure Tolerated Well Tolerated Well #14 right buttock cluster -Time 12:01 11:41 -Correct Patient Yes Yes -Correct Side, Site, Position Yes Yes -Correct Procedure Yes Yes -Procedure Performed Yes Yes -Type of Procedure Debridement Debridement -Clinical Debridement Subcutaneous Subcutaneous -Post Debridement Size (cm) - Length 7.0 6.0 -Post Debridement Size (cm) - Width 5.0 5.0 -Post Debridement Size (cm) - Depth 0.1 0.1 -Total Square Cm 35.00 30.00 -Wound/Ulcer Outcome Not Healed Not Healed -Ulcer Cleansing Rinsed/ Rinsed/ Irrigated with Irrigated with Saline Saline -Foul Odor after Cleansing No No -Bioengineered Tissue No No -Bleeding Controlled with Pressure Pressure -Offloading No No -Treatment Response Procedure Procedure Tolerated Well Tolerated Well Pain Scale: 0-10 Numeric Is Patient Pain Free? Yes Wound debrided: Right buttock cluster Wound Grade/Stage: Stage II Type of Debridement: Excisional debridement Anesthesia Used: 4% Lidocaine Solution Depth: Down to and including healthy tissue, in the subcutaneous layer Percentage of wound debrided: 100 Instrument Used: 5mm curette Tissue Removed: Slough and devitalized tissue Severity: Fat Layer Exposed Amount of bleeding with debridement: Mild Bleeding Controlled with: Pressure Patient tolerated procedure well - Additional Wound Wound debrided: Left buttock Wound Grade/Stage: Stage II Type of Debridement: Excisional debridement Anesthesia Used: 4% Lidocaine Solution Depth: Down to and including healthy tissue, in the subcutaneous layer Percentage of wound debrided: 100 Instrument Used: 5mm curette Tissue Removed: Slough and devitalized tissue Severity: Fat Layer Exposed Amount of bleeding with debridement: Mild Bleeding Controlled with: Pressure Patient tolerated procedure: Patient tolerated procedure well - Additional Wound Wound debrided: Coccygeal cluster Wound Grade/Stage: Stage III Type of Debridement: Excisional debridement Anesthesia Used: 4% Lidocaine Solution Depth: Down to and including healthy tissue, in the subcutaneous layer Percentage of wound debrided: 100 Instrument Used: 5mm curette Tissue Removed: Slough and devitalized tissue Severity: Fat Layer Exposed Amount of bleeding with debridement: Mild Bleeding Controlled with: Pressure Patient tolerated procedure: Patient tolerated procedure well Assessment/Plan Active Problems Stage II pressure ulcer of right buttock (Chronic) Stage II pressure ulcer of left buttock (Chronic) Obesity, morbid (Chronic) Decubitus ulcer of coccygeal region, stage 3 (Chronic) Assessment: Stage II pressure ulcers bilateral buttocks. Coccygeal ulcer. Radiation injury Plan: Debridement done as documented above. Did not tolerate as well. Wanted to sit down due to knee pain. New right inferior ulceration was noted by intake nurse however debridement was not done to that. Continue Aquacel extra daily to twice daily depending on drainage. Gauze over top. Offloading strongly recommended. Also advised to avoid stool contamination. Patient states that she will try. Smoking cessation and increased protein intake also recommended. Exercise as tolerated discussed. Her questions were answered and she was advised to call with any further questions or concerns. Follow-up in 2 weeks per patient preference. This note was generated with [employer] dictation software. It may contain incorrect words, spelling, and punctuation that were not noted in checking the note before signing. [id number]: [id number] Ama subq tissue 20 sq cm/<
== END 2020-03-07 23:59 ==
LOC: WC 09:00
PROVIDERS: PCP Family Medicine; Visit Provider Internal Medicine
DX: L89.153 Pressure ulcer of sacral region, stage 3 (principal); L89.322 Pressure ulcer of left buttock, stage 2; L89.312 Pressure ulcer of right buttock, stage 2; E66.01 Morbid (severe) obesity due to excess calories; L59.8 Other specified disorders of the skin and subcutaneous tissue related to radiation; Y84.2 Radiological procedure and radiotherapy as the cause of abnormal reaction of the patient, or of later complication, without mention of misadventure at the time of the procedure
CPT/HCPCS: 11042; 11045

== ENCOUNTER 2020-03-07 15:24 | Inpatient (IN) | payer MEDICARE, MEDICAID, SELFPAY ==
[2020-03-07] VITALS (8 sets, daily range): BP systolic 105–126; BP diastolic 35–93; PULSE 81–89; RESP 13–20; TEMP 36.6–36.9; O2SAT 96–98; BMI 51.1; BMI 46.5; BMI 47.2
--- NOTE | 2020-03-07 16:19 | EKG12_ITS ---
Test Reason : WEAKNESS Blood Pressure : / mmHG Vent. Rate : 084 BPM Atrial Rate : 084 BPM P-R Int : 180 ms QRS Dur : 150 ms QT Int : 406 ms P-R-T Axes : 059 -32 021 degrees QTc Int : 479 ms Normal sinus rhythm Left axis deviation Right bundle branch block Possible Lateral infarct (cited on or before 25-DEC-2017) Inferior infarct (cited on or before 21-APR-2016) Abnormal ECG Confirmed by SHEKHAR BHAT, HOLLI ([id number]), loan expeditor KEERTHI DELUCA ([id number]) on 03/09/2020 1:44:18 PM Referred By: BB Confirmed By:HOLLI CORRIGAN MD
--- NOTE | 2020-03-07 16:28 | ED.VIS.GEN ---
History of Present Illness Chief Complaint: Weakness Informant: Patient Onset: Days - 3 Context: Gradual Onset Timing: Continuous Quality: Weakness Location: Both lower extremities Current Severity: Severe Maximum Severity: Severe Worsened by: Nothing in particular Relieved by: Nothing Narrative: Patient states she lives at home alone and is wheelchair-bound, but is usually able to transfer to and from toilet, bed, chair, etc. with little or no assistance. She has chronic weakness and swelling in her legs, and chronic arthritis that she describes as wear and tear, that makes it difficult or impossible for her to walk, hence the wheelchair. She states in the last several days she has noticed a significant worsening to the point where she cannot transfer, and requires assistance, she is obese and her son has been unable to help her up at all in the last couple days. She presents by EMS, also stating that for the last couple days she has had numbness throughout her right hand, starting with swelling in the hand just prior to that about a day. She denies any injury to her hand or pain. The numbness starts a little bit more proximally in her forearm at the radial/dorsal aspect. She denies weakness in the hand, or focal neurologic symptoms elsewhere. No problems speaking or understanding others. No lightheadedness, dizziness, chest symptoms, nausea, vomiting, diarrhea. No recent infection or fevers. She has an indwelling Guy catheter. - Past Medical History (1) COPD (chronic obstructive pulmonary disease) Status: Chronic (2) Cancer of vulva Status: Chronic Comment: Status post radical vulvectomy and radiotherapy in January 2014 (3) Coronary artery disease Status: Chronic Comment: Status post CABG (4) Depression Status: Chronic (5) Diabetes mellitus type II Status: Chronic (6) Diabetic neuropathy Status: Chronic (7) Dyslipidemia Status: Chronic (8) Obesity, morbid Status: Chronic (9) Peripheral vascular disease in diabetes mellitus Status: Chronic (10) Tobacco abuse Status: Chronic Past Medical History - Allergies and Home Meds Allergies/Adverse Reactions: Allergies povidone-iodine [From Betadine] Allergy (Verified 03/07/20 15:27) Itching topical betadine prednisone Allergy (Verified 03/07/20 15:27) tiny mouth ulcers Primary Care Physician: Gera Snider III, MD [Primary Care Provider] - Surgical History: cataract, cholecystectomy, coronary bypass surgery, tonsillectomy, - - Incision and drainage repeatedly of perirectal abscesses. 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, right hip surgery Lives: Alone Smoking Status: Current every day smoker - Family History Maternal Family History: Reports: Cancer, Diabetes, Hypertension, Pulmonary Disease Paternal Family History: Reports: Cancer, Hypertension, Pulmonary Disease, No pertinent history Review of Systems General: Reports: Malaise. Denies: Chills, Fever, Sweats Eyes: Denies: Visual changes - bilaterally, Diplopia ENT: Denies: Bilateral ear pain, Rhinorrhea, Sore throat Cardiovascular: Denies: Chest pain, Palpitations Respiratory: Denies: Dyspnea, Cough, Dyspnea on exertion Gastrointestinal: Denies: Abdominal pain, Nausea, Vomiting, Diarrhea, Melena, Hematochezia Genitourinary: Denies: Dysuria, Hematuria, Frequency Musculoskeletal: Reports: Swelling. Denies: Neck pain, Back pain, Extremity Pain Skin: Reports: Rash - Both lower legs, chronic, unchanged. Denies: Wounds Neurological: Reports: Weakness - See HPI. Bilateral lower extremities., Numbness - Chronic both feet, 3 days right hand and forearm. Denies: Headache Physical Exam Vital Signs/Narrative: Vital Signs Temp Pulse Resp BP Pulse Ox 03/07/20 15:31 98.2 F 84 18 123/42 H 98 03/07/20 15:25 98.2 F 84 18 123/42 H 98 Inital Vital Signs reviewed: Yes General: Well nourished, Well developed, Obese, Unkempt, No Acute Distress Head: Normocephalic, Atraumatic Eyes: Perrl, EOMI ENT: Moist mucous membranes, No rhinorrhea Neck: Supple, Nontender, No lymphadenopathy Cardiovascular: Regular rate, Regular rhythm, No murmurs. Negative for: Tachycardia Respiratory: No distress, CTA bilaterally, Chest nontender Abdomen: Soft, Nontender, Nondistended, Normal bowel sounds Back: Nontender, Normal Inspection Extremities: Nontender, Edema - 2+ bilateral lower extremities to knees., - - No objective swelling to the right hand, both hands are kind of symmetric. Brisk cap refill 3 seconds bilaterally and symmetric. Equal bilateral 2+ radial pulses.. Negative for: Calf Tenderness Skin: Normal color, Rash - Consistent with chronic stasis dermatitis symmetric both lower legs. Some scabbing present. Nothing that looks like acute cellulitis or DVT. Neurological: Alert, Oriented x3, Cranial nerves II-XII grossly intact, Parasthesia - Both feet, all fingers right hand, Weakness - Able to move all 4 extremities, difficulty lifting both lower extremities against gravity, limited evaluation due to the amount of swelling and obesity., - - No dysarthria or aphasia. Psychological: Normal affect, Normal Mood Diagnostic/Tx/Re-eval Impressions Chest X-Ray 03/07/20 16:35 IMPRESSION: No acute cardiopulmonary pathology Electronically Signed: Robert Sifuentes MD at 17:10 EDT , Service support , 03/07/20 16:35 Chest 1 View (Portable) [RAD] Stat Laboratory Results 03/07/20 03/07/20 03/07/20 16:37 16:37 17:30 WBC 11.0 RBC 3.51 L Hgb 9.5 L Hct 31.2 L MCV 88.9 MCH 27.1 MCHC 30.4 L RDW Std Deviation 48.2 H RDW Coeff of Ash 14.8 H Plt Count 256 MPV 11.0 Immature Gran % (Auto) 0.400 Neut % (Auto) 80.8 H Lymph % (Auto) 11.1 L [place] % (Auto) 6.4 Eos % (Auto) 1.1 Baso % (Auto) 0.2 Absolute Neuts (auto) 8.9 H Absolute Lymphs (auto) 1.22 Nucleated RBC % 0 Sodium 138 Potassium 4.5 Chloride 106 Carbon Dioxide 24.0 Anion Gap 8 BUN 71 H Creatinine 2.49 H Estim Creat Clear Calc 20.27 Est GFR (MDRD) Af Amer 25 L Est GFR (MDRD) Non-Af 21 L BUN/Creatinine Ratio 28.5 H Glucose 139 H Calcium 8.5 Troponin I < 0.015 Urine Color Dang Urine Clarity Turbid Urine pH 5.0 Ur Specific [place] 1.025 Urine Protein 30 H Urine Glucose (UA) Normal Urine Ketones 5 H Urine Occult Blood 250 H Urine Nitrite Negative Urine Bilirubin 6 H Urine Urobilinogen 1 H Ur Leukocyte Esterase 100 H Urine RBC > 100 SEEN Urine WBC 5-10 SEEN Ur Squamous Epith Cells 0 SEEN Ur Renal Epithelial Cell 0-5 SEEN Amorphous Sediment 2+ Urine Bacteria 0 SEEN Urine Mucus 0 SEEN - Rhythm Strip Rhythm Strip: Sinus Rhythm Rate: 84 Ectopy: None - EKG Initial EKG Interpretation: Sinus Rhythm, No Acute Injury Pattern, RBBB, LAFB Prior: Unchanged - Medical Decision Making Labs show acute renal failure which may be what is making her feel weak. On further evaluation she has a significant cutaneous candidiasis that is intertriginous below her abdominal pannus. Nursing cleaned out a lot of white chunky yeast out of that area. They also evaluated a sacral decubitus ulcer, the patient states this has been chronic, she had not been wound care in a while but actually had a visit there 2 days ago for this, and was told it did not look infected, they did some dressing changes and are expecting her back in a week or so. Given the fact that she cannot walk or transition anymore out of her wheelchair lives alone, and does not have enough help, the plan was looking into admission/rehab/longterm/assisted living anyway, but now that she has renal failure I think admission to acute care is reasonable. Discussed with hospitalist. Send her urine for culture, does not necessarily represent significant infection. With regards to her right hand and forearm numbness, do not think this represents stroke. I think it is probably a result of whatever is causing her swelling which is difficult to appreciate objectively. She does have a history of arthritis and I would have no issue putting her on prednisone if she was not a type II diabetic. ED Disposition - Plan for ED Patient: Disposition: Acute Care Hospital [facility] Diagnosis: Acute renal failure, Generalized weakness, Unable to perform basic transfer without assistance, Stage III pressure ulcer of sacral region, Intertriginous candidiasis Referrals: Gera Snider III, MD [Primary Care Provider] -
--- NOTE | 2020-03-07 16:35 | RAD_ITS ---
STUDY: X-RAY CHEST REASON FOR EXAM: Female, 64 years old. weakness TECHNIQUE: AP portable COMPARISON: February 18, 2020 FINDINGS: The lungs are clear and expanded. There is no demonstrated pleural abnormality. Postop change status post median sternotomy and CABG. Heart is mildly enlarged. Normal mediastinum and sridhar. Normal visualized pulmonary arteries. Mildly calcified aortic arch and descending thoracic aorta. Dorsal spine demonstrates degenerative change. Normal visualized ribs, clavicles, and shoulders. There is no demonstrated abnormality of the visualized soft tissue structures of the upper abdomen. No significant change since prior exam RAD/Chest 1 View (Portable) IMPRESSION: No acute cardiopulmonary pathology Electronically Signed: Robert Sifuentes MD at 17:10 EDT , Service support ,
[2020-03-07 17:00] LABS: Absolute Lymphocyte Count 1.22 X10^3/uL (0.83-4.51); Absolute Neutrophil Count 8.9 X10^3/uL (2.0-7.7); Basophil# 0.02 X10^3/uL; Basophil% 0.2 % (0-1); Eosinophil# 0.12 X10^3/uL; Eosinophils% 1.1 % (0-5); Hematocrit 31.2 % (37-47); Hemoglobin 9.5 g/dL (12.0-15.0); Lymphocyte # 1.22 X10^3/ul (4.0); Lymphocyte % 11.1 % (19-41); Mean Corp Hgb Conc 30.4 g/dL (32-36); Mean Corpuscular Hgb 27.1 pg (27.0-32.0); Mean Corpuscular Volume 88.9 fL (81-99); Monocyte% 6.4 % (0-10); NRBC Flagged by Analyzer 0 % (0-5); Neutrophil # 8.87 X10^3/uL (2.7-7.7); Neutrophil % 80.8 % (47-70); Platelet Count 256 K/mm3 (150-450); RBC Distribution Width CV 14.8 % (11.6-14.6); RBC Distribution Width SD 48.2 fl (35.1-43.9); Red Blood Count 3.51 M/mm3 (4.2-5.4)
[2020-03-07 17:04] LABS: Anion Gap 8 (5-15); BUN 71 mg/dL (7-18); BUN/Creat Ratio 28.5 RATIO (10-20); Calcium,Total 8.5 mg/dL (8.5-10.1); Chloride 106 mmol/L (98-107); Creatinine, Serum 2.49 mg/dL (0.55-1.02); EST Glomerular Filtration Rate 21 mL/min (>60); Est Glom Filt Rate - Afr Amer 25 mL/min (>60); Estimated Creatinine Clearance 20.27 ml/min; Glucose 139 mg/dL (74-106); Potassium 4.5 mmol/L (3.5-5.1); Sodium Level 138 mmol/L (136-145)
[2020-03-07 17:41] LABS: Bacteria 0 SEEN /hpf (None Seen); Mucous, Urine 0 SEEN /hpf (<or=2+); Squamous Epithelial Cells - UA 0 SEEN /hpf (5-10)
[2020-03-07 17:48] LABS: Glucose, Dipstick Normal (Normal); Ketone-Dipstick 5 mg/dl (Negative); Leukocyte Esterase-Dipstick 100 /ul (Negative); Nitrite-Dipstick Negative (Negative); Occult Blood-Urine 250 /ul (Negative); Protein-Dipstick 30 mg/dl (Negative); Specific Gravity, Urine 1.025 (1.002-1.030); Urine Urobilinogen 1 mg/dl (Normal)
[2020-03-07 18:04] LABS: Color, Urine Amber (Yellow); Urine Bilirubin Dipstick 6 mg/dL (Negative); Urine Clarity Turbid (Clear)
[2020-03-07 18:08] LABS: Red Blood Cells-Urine > 100 SEEN /hpf (0-5)
[2020-03-07 18:12] LABS: Amorphous Sediment 2+; White Blood Cells 5-10 SEEN /hpf (0-5)
[2020-03-07 18:15] LABS: Renal Epithelial Cells 0-5 SEEN /hpf (0-5)
--- NOTE | 2020-03-07 18:19 | ED.RN ---
PT NOTED TO HAVE VERY POOR HYGIENE. AREA UNDER ABDOMINAL FOLD REDDENED AND EXCORIATED. PRESSURE AREA WITH OPEN AREA ON COCCYX.
--- NOTE | 2020-03-07 18:21 | ED.RN ---
Addendum entered by Kamilla Betancur 03/07/20 18:22: PILLOW CASE PLACED UNDER PANNUS Original Note: AREA ON COCCYX LEFT UNDRESSED FOR ASSESSMENT UPON ADMISSION.
--- NOTE | 2020-03-07 19:24 | PCM.HP.STD ---
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 The patient is a 64 year old F with multiple medical comorbidities as mentioned above presented to the emergency room because of generalized weakness. Patient lives alone at home, wheelchair-bound and presented to the emergency department today because of generalized weakness. She mentioned that she has been having difficulties getting out of her wheelchair, not able to transfer of her wheelchair for the last few days. Usually, she is able to transfer to and from her toilet, bed and chair but over the last several days, she has been having difficult time to even stand out of her chair. She reported cough which is chronic, no acute change. Denied fever chills. Denied abdominal pain, nausea or vomiting. She did complain the right hand is tingling. She denied focal arm or leg weakness. She denied slurred speech or blurred vision. She was admitted around 2 weeks ago for hypotension and hypoglycemia after she underwent cataract surgery and she was found to have acute cystitis and bilateral groin intertrigo with secondary bacterial infection. She was treated and it was highly recommended that patient should go to assisted facility because she is not able to take care of herself but she is refused. She had a history of type 2 diabetes mellitus, has been on Lantus and metformin and her blood sugar has been under control, hemoglobin A1c was 6.3% 2 weeks ago. 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 She has history of vulvar cancer status post vulvectomy and radiation treatment and she is in remission. In the emergency department, her vital signs are stable, was afebrile. Her routine blood work was remarkable for hemoglobin of 9.5 g/dL, which is chronic, BUN of 71, creatinine is 2.49. Her EKG revealed normal sinus rhythm, RBBB, no acute acute changes. Troponin was negative. Urinalysis revealed turbid urine, negative for nitrite, there was only 100 leukocyte esterase, 5-10 WBCs and no bacteria seen. Chest x-ray showed no acute infiltrate or consolidation. She is being admitted for acute kidney injury, worsening bilateral groin intertrigo with secondary bacterial infection, physical debility and functional decline as well as stage II nonhealing bilateral buttocks/sacral ulcers without evidence of acute infection. Past Medical History Past Medical History (Chronic Problems): Chronic Problems Stage II pressure ulcer of right buttock (Chronic) Stage II pressure ulcer of left buttock (Chronic) Obesity, morbid (Chronic) Decubitus ulcer of coccygeal region, stage 3 (Chronic) Tobacco abuse (Chronic) COPD (chronic obstructive pulmonary disease) (Chronic) Depression (Chronic) Dyslipidemia (Chronic) Pressure ulcer of left heel, stage 2 (Chronic) Stage III pressure ulcer of sacral region (Chronic) Diabetic neuropathy (Chronic) Peripheral vascular disease in diabetes mellitus (Chronic) Diabetes mellitus type II (Chronic) Coronary artery disease (Chronic) Status post CABG Cancer of vulva (Chronic) Status post radical vulvectomy and radiotherapy in January 2014 Allergies povidone-iodine [From Betadine] Allergy (Verified 03/07/20 15:27) Itching topical betadine prednisone Allergy (Verified 03/07/20 15:27) tiny mouth ulcers Home Medications: Ambulatory Orders Medication Instructions Recorded Aspirin [Aspirin, Baby] 81 mg PO DAILY@0800 03/24/15 Atorvastatin Calcium [Lipitor] 80 mg PO QHS 03/24/15 Clopidogrel Bisulfate [Plavix] 75 mg PO DAILY 03/24/15 Gabapentin [Neurontin] 800 mg PO TIDCM 03/24/15 Metoprolol Tartrate [Lopressor 25 mg PO BID 03/24/15 (beta liza)] Omeprazole [Prilosec] 20 mg PO DAILY 03/24/15 Insulin Glargine,Hum.rec.anlog 68 unit SQ QHS 07/20/15 [Lantus] Lisinopril [Zestril] 20 mg PO DAILY 11/09/15 Albuterol Aerosols [Ventolin 2.5 mg INHALATION Q6HWA.RT PRN 09/10/16 Aerosols] Diphenoxylate HCl/Atropine 1 each PO 4X/DAY PRN PRN 12/25/17 [Lomotil 2.5-0.025 mg Tablet] traMADol [Ultram] 50 mg PO Q6H PRN PRN 12/25/17 Amitriptyline HCl 50 mg PO QHS 02/18/20 Duloxetine Hcl [Cymbalta] 60 mg PO DAILY 02/18/20 Ferrous Sulfate 325 mg PO DAILY@0800 02/18/20 Hydrochlorothiazide 12.5 mg PO DAILY 02/18/20 Lidocaine [Lidoderm Patch] 1 patch TP DAILY 02/18/20 Metformin HCl 500 mg PO BIDCM 02/18/20 Nystatin Powder [Mycostatin Powder] 1 applic TOPICAL TID #2 bottle 02/20/20 Surgical History: cataract, cholecystectomy, coronary bypass surgery, tonsillectomy, - - Incision and drainage repeatedly of perirectal abscesses. 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, right hip surgery Psychiatric History: Depression [employer] History: No pertinent [employer] history Lives: With Family - Lives with her son. Smoking Status: Light Smoker (<10/day) Tobacco Use: Cigarettes Alcohol: None Drugs: None - *Family History Maternal History Items: Cancer, Diabetes, Hypertension, Pulmonary Disease Paternal History Items: Cancer, Hypertension, Pulmonary Disease, No pertinent history Review of Systems Constitutional: Reports: Weakness. Denies: Anorexia, Chills, Fever Eyes: Denies: Blurred vision, Double vision, Drainage, Redness HEENT: Denies: Difficulty Hearing, Dysphasia, Ear Pain, Eye Pain, Nasal Congestion, Sore Throat Cardiovascular: Denies: Chest Pain, Chest Pressure, Heaviness, Palpitations, Syncope Respiratory: Reports: Cough. Denies: Pleuritic Pain, Shortness of Breath, Sputum production, Wheezing Gastrointestinal: Denies: Abdominal Pain, Diarrhea, Dyspepsia, Nausea, Vomiting Genitourinary: Denies: Dysuria, Frequency, Hematuria Musculoskeletal: Denies: Arm Pain, Back Pain, Foot Pain Skin: Reports: Rash. Denies: Dryness Neurological: Denies: Balance problems, Double vision, Change in Speech, Slurred speech, Confusion, Headaches, Incoordination Psychiatric: Reports: Depression. Denies: Anxiety Endocrine: Denies: Change in Body Habitus, Polydipsia, Polyuria VTE Information - Inpt Only VTE Present on Admission: No VTE Mechan Device Prophylaxis: None VTE Pharm Prophylaxis ordered?: Yes Patient Problems: Active and Suspected Problems Acute renal failure (Acute) Generalized weakness (Acute) Unable to perform basic transfer without assistance (Acute) Physical debility (Acute) Acute kidney injury (Acute) Intertriginous candidiasis (Acute) - Physical Exam Vitals/I&O's: Vital Signs Temp Pulse Resp BP Pulse Ox 98 F 89 13 109/67 96 03/07/20 18:00 03/07/20 18:00 03/07/20 18:00 03/07/20 18:00 03/07/20 18:00 Oxygen Delivery Method Room Air Weight: 279 lb 15.793 oz Body Mass Index (BMI) 46.5 Finger Stick Blood Glucose 111 General: Alert, Oriented x3, Cooperative, No apparent distress HEENT: Atraumatic, PERRLA, EOMI, Normocephalic Oral: No Gingival or Mucosal Lesions/ Ulcerations, Dry Mucosa Neck: Supple, No JVD, Negative Carotid Bruits, Trachea Midline, Thyroid Normal Size and Texture Lungs: Clear to auscultation, Normal air movement, No rhonchi, No wheeze, No rales, Diminished Cardiovascular: Regular rate, Regular Rhythm, Normal S1, Normal S2, PMI Normal Abdomen: Bowel Sounds Present, Soft, Non Tender, Non-Distended, No Hepato-splenomegaly, Obese Extremities: No clubbing, No cyanosis, Edema - Lymphedema, stasis dermatitis. Skin: No rashes, Ulcer/ Wound - Stage II bilateral buttocks/sacral ulcer, no evidence of drainage or significant erythema. Lymphatic: No Cervical, Supraclavicular, or Inguinal Adenopathy Neurological: Cranial nerves II-XII grossly intact, Motor Exam 5/5 strength throughout Psych/Mental Status: Normal Affect, Appropriate, Alert and oriented to time, place, person, mood and affect Laboratory Results 03/07/20 16:37: WBC 11.0, RBC 3.51 L, Hgb 9.5 L, Hct 31.2 L, MCV 88.9, MCH 27.1, MCHC 30.4 L, RDW Std Deviation 48.2 H, RDW Coeff of Ash 14.8 H, Plt Count 256, MPV 11.0, Immature Gran % (Auto) 0.400, Neut % (Auto) 80.8 H, Lymph % (Auto) 11.1 L, [place] % (Auto) 6.4, Eos % (Auto) 1.1, Baso % (Auto) 0.2, Absolute Neuts (auto) 8.9 H, Absolute Lymphs (auto) 1.22, Nucleated RBC % 0 03/07/20 16:37: Sodium 138, Potassium 4.5, Chloride 106, Carbon Dioxide 24.0, Anion Gap 8, BUN 71 H, Creatinine 2.49 H, Estim Creat Clear Calc 20.27, Est GFR (MDRD) Af Amer 25 L, Est GFR (MDRD) Non-Af 21 L, BUN/Creatinine Ratio 28.5 H, Glucose 139 H, Calcium 8.5, Troponin I < 0.015 03/07/20 17:30: Urine Color Dang, Urine Clarity Turbid, Urine pH 5.0, Ur Specific [place] 1.025, Urine Protein 30 H, Urine Glucose (UA) Normal, Urine Ketones 5 H, Urine Occult Blood 250 H, Urine Nitrite Negative, Urine Bilirubin 6 H, Urine Urobilinogen 1 H, Ur Leukocyte Esterase 100 H, Urine RBC > 100 SEEN, Urine WBC 5-10 SEEN, Ur Squamous Epith Cells 0 SEEN, Ur Renal Epithelial Cell 0-5 SEEN, Amorphous Sediment 2+, Urine Bacteria 0 SEEN, Urine Mucus 0 SEEN Clinical Impression(s) from Imaging Studies Chest X-Ray 03/07/20 16:35 IMPRESSION: No acute cardiopulmonary pathology Electronically Signed: Robert Sifuentes MD at 17:10 EDT , Service support , Assessment/Plan All Active Problems Acute renal failure (Acute) Generalized weakness (Acute) Unable to perform basic transfer without assistance (Acute) Physical debility (Acute) Acute kidney injury (Acute) Intertriginous candidiasis (Acute) This is a 64 years old female patient presented to the emergency room because of generalized weakness, difficulty ambulating and she was found to have acute kidney injury in addition to worsening bilateral groin/genital intertrigo with secondary fungal infection and also had a history of chronic nonhealing bilateral buttocks/sacral ulcers without evidence of acute infection and she is being admitted for treatment. #1 Acute kidney injury: Attributed to poor oral intake and medication side effects. Patient has been on HCTZ, lisinopril and metoprolol. Her baseline kidney function is normal. Chest x-ray showed no acute findings. Urinalysis reviewed, doubt acute infection. Urine culture sent. Plan: Admit to [facility] floor, IV fluids for hydration, hold nephrotoxic drugs, input output chart to maintain Guy catheter, urine culture, no indication for IV antibiotics, repeat CBC and BMP tomorrow morning, PT OT evaluation and treatment. #2 Worsening bilateral groin/genital intertrigo with secondary fungal infection: Patient was discharged from the hospital on February 20, 2020, was discharged on nystatin powder and Diflucan. On examination, skin rash and erythema on both legs are getting worse, serous drainage. Plan: Start topical nystatin powder 3 times daily, oral Diflucan 400 p.o. daily, wound care nurse consult. #3 stage II bilateral buttocks pressure ulcers/sacral ulcer: Without evidence of acute infection. According to the patient, she went to wound care center after discharge 2 weeks ago. G has been following up with PCP and wound care center. Plan for wound care consult, dry sterile dressing. #4 functional decline/physical debility/not able to take care of herself: During the last admission, placement to assisted facility highly recommended but patient insisted to go home because she is afraid from COVID-19. She lives at home with her son and obviously, she is not able to take care of herself and do her daily activities. Plan: PT OT evaluation and treatment, case management consult for discharge planning, patient will need placement to assisted facility. #5 type 2 diabetes mellitus: ADA diet, Accu-Cheks, insulin sliding scale, hold metformin for now. Hemoglobin A1c was 6.5% 2 weeks ago. #6 CAD status post CABG: Stable, no acute ischemic changes. Troponin is negative. Continue aspirin, statins, Plavix, metoprolol, hold lisinopril. #7 COPD: Pulse ox is maintained on room air. Chest x-ray reviewed as above. Plan for albuterol PRN. #8 hyperlipidemia: Continue statins. 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 #10 DVT prophylaxis: Subcu Lovenox. This note was generated with [employer] dictation software. It may contain incorrect words, spelling, and punctuation that were not noted in checking the note before signing. Inpatient E&M: 92417 Init Hosp L3
[2020-03-07] MEDS: 0.9% Normal Saline 1,000 ML 100 ML IV (20:29)
--- NOTE | 2020-03-07 21:00 | NURSING ---
This RN entered pt's room to check blood glucose level with hospital's glucometer. Pt states you are not poking me with that thing! I have my own. I refuse to be poked when I have my own. Pt proceeds to check own blood sugar with her own device called a Freestyle Lul.
[2020-03-07] MEDS: Metoprolol Tartrate 25 MG Tablet PO (21:29)
[2020-03-07] MEDS: Heparin Injection (Vial) 5,000 UNIT/ML VIAL 5000 UNIT SC (21:29)
[2020-03-07] MEDS: Amitriptyline 25 MG Tablet 50 MG PO (21:29)
[2020-03-07] MEDS: Atorvastatin Calcium 80 MG Tablet PO (21:30)
[2020-03-07] MEDS: Nystatin Powder 15gm Bottle 1 APPLIC TOPICAL (22:39)
[2020-03-08 03:45] VITALS: BP 102/49; PULSE 81; RESP 18; TEMP 37.1; O2SAT 97
[2020-03-08] MEDS: Albuterol 2.5 MG/3 ML VIAL.NEB. INHALATION (04:22)
[2020-03-08 04:23] VITALS: PULSE 83; RESP 16; O2SAT 93
[2020-03-08 05:35] LABS: Absolute Lymphocyte Count 1.68 X10^3/uL (0.83-4.51); Absolute Neutrophil Count 5.4 X10^3/uL (2.0-7.7); Basophil# 0.02 X10^3/uL; Basophil% 0.3 % (0-1); Eosinophil# 0.24 X10^3/uL; Hematocrit 27.8 % (37-47); Hemoglobin 8.6 g/dL (12.0-15.0); Lymphocyte # 1.68 X10^3/ul (4.0); Lymphocyte % 21.1 % (19-41); Mean Corp Hgb Conc 30.9 g/dL (32-36); Mean Corpuscular Volume 87.4 fL (81-99); Mean Platelet Vol. 10.8 fl (6.2-12.0); Monocyte# 0.64 X10^3/uL; NRBC Flagged by Analyzer 0 % (0-5); Neutrophil # 5.35 X10^3/uL (2.7-7.7); Neutrophil % 67.2 % (47-70); Platelet Count 243 K/mm3 (150-450); RBC Distribution Width CV 14.6 % (11.6-14.6); RBC Distribution Width SD 47.2 fl (35.1-43.9); Red Blood Count 3.18 M/mm3 (4.2-5.4)
[2020-03-08 05:57] LABS: Anion Gap 7 (5-15); BUN 75 mg/dL (7-18); BUN/Creat Ratio 35.9 RATIO (10-20); Calcium,Total 8.1 mg/dL (8.5-10.1); Chloride 108 mmol/L (98-107); Creatinine, Serum 2.09 mg/dL (0.55-1.02); EST Glomerular Filtration Rate 25 mL/min (>60); Est Glom Filt Rate - Afr Amer 31 mL/min (>60); Estimated Creatinine Clearance 23.17 ml/min; Glucose 136 mg/dL (74-106); Potassium 4.2 mmol/L (3.5-5.1); Sodium Level 138 mmol/L (136-145)
[2020-03-08] MEDS: 0.9% Normal Saline 1,000 ML 100 ML IV ×2 (06:18→17:08)
[2020-03-08] MEDS: Nystatin Powder 15gm Bottle 1 APPLIC TOPICAL ×3 (06:18→22:17)
[2020-03-08] MEDS: Heparin Injection (Vial) 5,000 UNIT/ML VIAL 5000 UNIT SC ×3 (06:20→22:20)
--- NOTE | 2020-03-08 07:57 | PN_ITS ---
Patient Problems: Active and Suspected Problems Acute renal failure (Acute) Generalized weakness (Acute) Unable to perform basic transfer without assistance (Acute) Physical debility (Acute) Acute kidney injury (Acute) Intertriginous candidiasis (Acute) Reason for Visit: Follow-up for acute kidney injury,, UTI, bilateral groin yeast infection and stage II sacral decubitus ulcer Objective: Patient stated she does not have burning micturition or increased frequency or urgency this time. Bilateral groin yeast infection. She is functional quadriplegia and unable to get out of bed. Patient refused to go to a SNF during her last admission about 2 weeks ago. She still smokes a pack per day and does not want to quit. Sacral decubitus ulcer. Vitals/I&O's: Vital Signs Temp Pulse Resp BP Pulse Ox 98.7 F 83 16 102/49 L 93 03/08/20 03:45 03/08/20 04:23 03/08/20 04:23 03/08/20 03:45 03/08/20 04:23 Oxygen Flow Rate (L/min) 1 Oxygen Delivery Method Nasal Cannula Weight: 275 lb Body Mass Index (BMI) 47.2 Finger Stick Blood Glucose 111 Intake and Output for Last 24 Hours 03/06/20 03/07/20 03/08/20 23:59 23:59 23:59 Intake Total 300 / 300 1131.67 / 1131.67 Output Total 225 / 225 150 / 150 Balance 75 / 75 981.67 / 981.67 General: Alert, Oriented x3, Cooperative HEENT: Atraumatic, PERRLA, EOMI, Normocephalic Neck: Supple, No JVD, Negative Carotid Bruits Lungs: Clear to auscultation, No rhonchi, No wheeze, No rales, Diminished Cardiovascular: Regular rate, Regular Rhythm, Normal S1, Normal S2, No murmurs Abdomen: Bowel Sounds Present, Soft, Non Tender, - Extremities: Capillary Refill Less than 3 Seconds, Edema Skin: Ulcer/ Wound, Rash Present - Rash present on bilateral groin region. Stage II bilateral buttock/sacral decubitus ulcer, 4 x 1 x 1 cm. No evidence of radha inage or active infection. Local dressing. Musculoskeletal: No Tenderness to Palpation of Joints or Extremities, Arthritic Changes, Muscle Wasting Neurological: Cranial nerves II-XII grossly intact, Neuro grossly intact Psych/Mental Status: Normal Affect, Appropriate Laboratory Results 03/07/20 16:37: WBC 11.0, RBC 3.51 L, Hgb 9.5 L, Hct 31.2 L, MCV 88.9, MCH 27.1, MCHC 30.4 L, RDW Std Deviation 48.2 H, RDW Coeff of Ash 14.8 H, Plt Count 256, MPV 11.0, Immature Gran % (Auto) 0.400, Neut % (Auto) 80.8 H, Lymph % (Auto) 11.1 L, [place] % (Auto) 6.4, Eos % (Auto) 1.1, Baso % (Auto) 0.2, Absolute Neuts (auto) 8.9 H, Absolute Lymphs (auto) 1.22, Nucleated RBC % 0 03/07/20 16:37: Sodium 138, Potassium 4.5, Chloride 106, Carbon Dioxide 24.0, Anion Gap 8, BUN 71 H, Creatinine 2.49 H, Estim Creat Clear Calc 20.27, Est GFR (MDRD) Af Amer 25 L, Est GFR (MDRD) Non-Af 21 L, BUN/Creatinine Ratio 28.5 H, Glucose 139 H, Calcium 8.5, Troponin I < 0.015 03/07/20 17:30: Urine Color Dang, Urine Clarity Turbid, Urine pH 5.0, Ur Specific [place] 1.025, Urine Protein 30 H, Urine Glucose (UA) Normal, Urine Ketones 5 H, Urine Occult Blood 250 H, Urine Nitrite Negative, Urine Bilirubin 6 H, Urine Urobilinogen 1 H, Ur Leukocyte Esterase 100 H, Urine RBC > 100 SEEN, Urine WBC 5-10 SEEN, Ur Squamous Epith Cells 0 SEEN, Ur Renal Epithelial Cell 0- 5 SEEN, Amorphous Sediment 2+, Urine Bacteria 0 SEEN, Urine Mucus 0 SEEN 03/08/20 05:25: WBC 8.0, RBC 3.18 L, Hgb 8.6 L, Hct 27.8 L, MCV 87.4, MCH 27.0, MCHC 30.9 L, RDW Std Deviation 47.2 H, RDW Coeff of Ash 14.6, Plt Count 243, MPV 10.8, Immature Gran % (Auto) 0.400, Neut % (Auto) 67.2, Lymph % (Auto) 21.1, [place] % (Auto) 8.0, Eos % (Auto) 3.0, Baso % (Auto) 0.3, Absolute Neuts (auto) 5.4, Absolute Lymphs (auto) 1.68, Nucleated RBC % 0 03/08/20 05:25: Sodium 138, Potassium 4.2, Chloride 108 H, Carbon Dioxide 23.0, Anion Gap 7, BUN 75 H, Creatinine 2.09 H, Estim Creat Clear Calc 23.17, Est GFR (MDRD) Af Amer 31 L, Est GFR (MDRD) Non-Af 25 L, BUN/Creatinine Ratio 35.9 H, Glucose 136 H, Calcium 8.1 L Current Medications Acetaminophen (Tylenol) 650 mg PO Q6H PRN PRN PRN Reason: Pain Score 1-10/Temp > 100.7 F Albuterol Sulfate (Ventolin Aerosols) 2.5 mg INHALATION Q4H PRN PRN PRN Reason: Shortness of breath, wheezing Last Admin: 03/08/20 04:22 Dose: 2.5 mg Documented by: Amitriptyline HCl (Elavil) 50 mg PO QHS [facility] Last Admin: 03/07/20 21:29 Dose: 50 mg Documented by: Aspirin (Aspirin, Baby) 81 mg PO DAILY@0800 [facility] Atorvastatin Calcium (Lipitor) 80 mg PO QHS [facility] Last Admin: 03/07/20 21:30 Dose: 80 mg Documented by: Clopidogrel Bisulfate (Plavix) 75 mg PO DAILY [facility] Dextrose (D50w Syringe) 0 gm IV X1 PRN; Protocol PRN Reason: Hypoglycemia Diphenoxylate HCl/Atropine (Lomotil) 1 tablet PO 4X/DAY PRN PRN PRN Reason: Diarrhea Duloxetine HCl (Cymbalta) 60 mg PO DAILY [facility] Ferrous Sulfate (Ferrous Sulfate) 325 mg PO DAILY@0800 [facility] Fluconazole (Diflucan) 200 mg PO DAILY [facility] Gabapentin (Neurontin) 800 mg PO TIDCM [facility] Glucagon () 1 mg IM .X1 PRN PRN Reason: Hypoglycemia Heparin Sodium (Porcine) (Heparin Na) 5,000 unit SC Q8 [facility] Last Admin: 03/08/20 06:20 Dose: 5,000 unit Documented by: Sodium Chloride () 1,000 mls @ 100 mls/hr IV .Q10H [facility] Last Admin: 03/08/20 06:18 Dose: 100 mls/hr Documented by: Sodium Chloride () 250 mls @ 15 mls/hr IV .[id number] PRN PRN Reason: Saline Flush Sodium Chloride () 250 mls @ 15 mls/hr IV .[id number] PRN PRN Reason: Additional IVPB Infusion Insulin Glargine (Lantus (Bk)) 68 units SC QHS [facility] Last Admin: 03/07/20 22:39 Dose: 68 units Documented by: Insulin Human Lispro (Humalog Kwikpen (Bk)) 0 unit SC ACHS [facility]; Protocol Last Admin: 03/08/20 06:24 Dose: Not Given Documented by: Magnesium Hydroxide (Milk Of Magnesia) 30 ml PO DAILY [facility] Metoprolol Tartrate (Lopressor (Beta [place])) 25 mg PO BID [facility] Last Admin: 03/07/20 21:29 Dose: 25 mg Documented by: Nutritional Formula (Lactose Free) (Glucerna Shake) 120 ml PO 4X/DAY [facility] Last Admin: 03/07/20 22:38 Dose: Not Given Documented by: Nystatin (Mycostatin Powder) 1 applic TOPICAL TID [facility]; Protocol Last Admin: 03/08/20 06:18 Dose: 1 applicatio Documented by: Ondansetron HCl (Zofran) 4 mg IV Q8H PRN PRN PRN Reason: NAUSEA/VOMITING Oxycodone HCl (Oxyir) 5 mg PO Q6H PRN PRN PRN Reason: Pain Score 6-10/10 Pantoprazole Sodium (Protonix) 20 mg PO DAILY [facility] Senna/Docusate Sodium (Senokot-S, Gina-Colace) 2 tablet PO BID PRN PRN PRN Reason: Constipation Sodium Chloride () 10 - 40 ml IV UD PRN PRN Reason: SALINE FLUSH Tramadol HCl (Ultram) 50 mg PO Q6H PRN PRN PRN Reason: Pain Score 4-5/10 Zolpidem Tartrate (Ambien (Generic)) 5 mg PO QHS PRN PRN PRN Reason: INSOMNIA STROKE Vital Signs/Narrative: Vital Signs Pulse Resp Pulse Ox 03/08/20 04:23 83 16 93 Medical Necessity - Tobacco Use Smoking Status: Light Smoker (<10/day) Tobacco Use: Cigarettes Assessment/Plan All Active Problems Acute renal failure (Acute) Generalized weakness (Acute) Unable to perform basic transfer without assistance (Acute) Physical debility (Acute) Acute kidney injury (Acute) Intertriginous candidiasis (Acute) This is a 64 years old female patient presented to the emergency room because of generalized weakness, difficulty ambulating and she was found to have acute kidney injury in addition to worsening bilateral groin/genital intertrigo with secondary fungal infection and also had a history of chronic nonhealing bilateral buttocks/sacral ulcers without evidence of acute infection and she is being admitted for treatment. #1 Acute kidney injury most likely a medication side effect, prerenal etiology: Home medication HCTZ, lisinopril were held. Baseline kidney function BUN 27, creatinine 0.94 on 02/19/2020. Creatinine is improving. UA shows 5-10 WBC, LE 100 but negative nitrite. Urine culture pending. Currently no indication for IV antibiotic as patient does not have symptoms signs of UTI. Patient has recent history of multi resistant Proteus mirabilis UTI/cystitis. [place] count 11,000-25,000 with sensitive only to cefepime, ertapenem and gentamicin. #2 Progressive bilateral groin/genital intertrigo with secondary fungal infection: Patient was discharged from the hospital on February 20, 2020, was discharged on nystatin powder and Diflucan. On Diflucan 400 mg daily and topical nystatin powder. Discussed with the wound care nurse Sayda. #3 stage II bilateral buttocks pressure ulcers/sacral ulcer: There is mild slough which was debrided. Discussed with the plastic surgeon Dr. Mack and advised to follow-up with wound clinic after discharge. #4 functional decline/physical debility/functional quadriplegia: Her baseline moving around through wheelchair. She wants to go to SNF where they can permit for her smoking and there is no infection of COVID-19. #5 type 2 diabetes mellitus: ADA diet, Accu-Cheks, insulin sliding scale, hold metformin for now. Hemoglobin A1c was 6.5% 2 weeks ago. #6 CAD status post CABG: Stable, no acute ischemic changes. Troponin is negative. Continue aspirin, statins, Plavix, metoprolol, hold lisinopril. #7 COPD: Pulse ox is maintained on room air. Chest x-ray reported no acute cardiopulmonary pathology. #8 hyperlipidemia: Continue statins. 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 #10 DVT prophylaxis: Subcu Lovenox. Inpatient E&M: 78162 Subs Hosp L2
[2020-03-08 09:10] VITALS: PULSE 75
[2020-03-08] MEDS: DULoxetine Hcl 60 MG Capsule PO (09:10)
[2020-03-08] MEDS: Metoprolol Tartrate 25 MG Tablet PO ×2 (09:10→22:16)
[2020-03-08] MEDS: Pantoprazole Sodium 20 MG Tablet PO (09:10)
[2020-03-08] MEDS: Gabapentin 800 MG Tablet PO ×3 (09:10→17:12)
[2020-03-08] MEDS: Clopidogrel Bisulfate 75 MG Tablet PO (09:10)
[2020-03-08] MEDS: Fluconazole 100 MG Tablet 200 MG PO (09:10)
[2020-03-08] MEDS: Ferrous Sulfate 325 MG Tablet PO (09:10)
[2020-03-08] MEDS: Aspirin 81 MG TAB.CHEW PO (09:11)
[2020-03-08] MEDS: traMADol 50 MG Tablet PO ×2 (09:25→16:07)
--- NOTE | 2020-03-08 09:26 | NURSING ---
wound photo: sacrum/buttocks
[2020-03-08 10:00] VITALS: BP 123/50; PULSE 76; RESP 19; TEMP 36.6; O2SAT 100
--- NOTE | 2020-03-08 10:44 | CASEMGMT ---
Addendum entered by Kassie Larios 03/08/20 11:08: SW placed a call to pt's CM Leia Sepulveda and updated Leia on pt's admission to [facility] and discharge plan of [facility]. Leia states understanding, states that she tried to get pt a gigi lift for pt but pt refused. Original Note: Social Work Note RN updated this worker that pt is agreeable to SNF and would like a SNF with no COVID cases and that allow smoking. SW in to speak with pt. SW introduced self and role at [facility]. Pt is alert and orientated x3. Pt confirms that she is agreeable to SNF but wants to make sure the SNF has no COVID cases and the SNF allow smoking. SW provided pt with list of SNF that accept pt's insurance and updated pt that this worker is only aware of [facility] and [place] that allow smoking. SW updated pt that [facility] does have current pt with COVID and [place] did have patients with COVID but last time this worker checked, they didn't have any active cases. Pt asked about [facility] as pt has been there before and know they allow smoking. SW informed pt that this worker can call [facility] if that is the SNF that pt prefers. Pt states she prefers [facility]. SW placed a call to [facility], spoke with admissions. [facility] states they have no active cases with COVID and haven't had any cases of COVID in their facility, agreeable to reviewing referral. SW faxed referral. Plan: SNF pending acceptance and pre-cert. Kassie Larios EMS EDUCATOR, GRAIN INSPECTOR
--- NOTE | 2020-03-08 10:45 | CASEMGMT ---
RN CM Readmission Note Previous Admission: 02.17-02.20.2020 Diagnosis: Post op hypotension, Chronic stage II georgette buttock pressure ulcer/sacral ulcer. DC Disposition: Home with services through [facility], Directions Home, APS referral Current Admission Presentation: ELVIA, worsening georgette groin/genital intertigo with fungal infectio, functional decline [facility]. Call to [facility] to update pt is @ [facility]. Per nurse, pt is having increased difficulty @ home and they recommend pt goes to SNF, but hasn't been agreeable. States pt sits in recliner and is very inactive. Noncompliant with recommendations by nursing. SW spoke with pt and she is agreeing to SNF on dc. Rogelio DRAKEN RN ACM
[2020-03-08] MEDS: Insulin Lispro 100 UNIT/ML INSULN.PEN SC ×2 (13:11→22:18)
[2020-03-08] MEDS: Glucerna Shake 120 ML LIQUID PO ×3 (13:12→22:59)
--- NOTE | 2020-03-08 13:24 | US_ITS ---
STUDY: RENAL ULTRASOUND - COMPLETE REASON FOR EXAM: Female, 64 years old. RECURING Uti'' s possible NEPHROLITHIASIS TECHNIQUE: Ultrasound evaluation of the kidneys was performed with real-time and static thompson-scale imaging. COMPARISON: None. FINDINGS: RIGHT KIDNEY: Normal location of the right kidney, which is normal in size. The right kidney measures 12.7 x 5.2 x 5.3 cm. There is a normal cortex of the right kidney. The renal cortex measures 1.5 cm. There is a simple 1.5 cm cyst. There are no right renal calculi. There is no right hydronephrosis. DISTAL RIGHT URETER: There is non-visualization of the distal right ureter. There is no demonstrated right ureterovesical junction calculus. There is a visualized right ureteral jet. LEFT KIDNEY: Normal location of the left kidney, which is normal in size. The left kidney measures 11.4 x 6.2 x 6.6 cm. There is a normal cortex of the left kidney. The renal cortex measures 2.5 cm. There is a simple 5.6 cm cyst. There are no left renal calculi. There is no left hydronephrosis. DISTAL LEFT URETER: There is non-visualization of the distal left ureter. There is no demonstrated left ureterovesical junction calculus. There is a visualized left ureteral jet. AORTA: There is no elongation or tortuosity of the abdominal aorta. I.V.C.: The IVC is patent. BLADDER: The bladder is not visualized US/Kidney and Bladder IMPRESSION: No obstructive uropathy or suspicious solid renal lesion Bilateral simple renal cysts, no specific follow-up needed Electronically Signed: Giancarlo Allen MD at 17:33 EDT , Service support ,
--- NOTE | 2020-03-08 14:38 | CASEMGMT ---
Social Work Note SW placed a call to Magali at [facility] regarding referral. Magali states she is still reviewing referral, also checking on pt's insurance. Magali states she will give this worker a call back when she has an answer regarding referral. Plan: SNF pending acceptance and pre-cert Kassie Larios PRODUCTION GRADER, IT PROGRAM ENGAGEMENT DIRECTOR
--- NOTE | 2020-03-08 16:18 | NURSING ---
pt refused to reposition offers. Also refusing to turn and allow this RN to assess dressing/wound. pt states enough people have seen it and it hasn't changed. This RN explained reasons for multiple assessments and wound RN vs primary RN. pt continued to refuse.
--- NOTE | 2020-03-08 16:26 | NURSING ---
Blood Sugar 123
[2020-03-08 20:00] VITALS: BP 141/38; PULSE 87; RESP 18; TEMP 36.7; O2SAT 95
--- NOTE | 2020-03-08 22:15 | NURSING ---
BGT from personal monitor was 180 at bedtime.
[2020-03-08 22:16] VITALS: BP 141/38; PULSE 87
[2020-03-08] MEDS: Atorvastatin Calcium 80 MG Tablet PO (22:17)
[2020-03-08] MEDS: Amitriptyline 25 MG Tablet 50 MG PO (22:17)
[2020-03-08] MEDS: oxyCODONE 5 MG Tablet PO (22:59)
[2020-03-09] VITALS (7 sets, daily range): BP systolic 111–135; BP diastolic 45–74; PULSE 75–85; RESP 16–20; TEMP 36.6–36.9; O2SAT 96–98
[2020-03-09] MEDS: 0.9% Normal Saline 1,000 ML 100 ML IV ×3 (03:20→23:30)
[2020-03-09] MEDS: Heparin Injection (Vial) 5,000 UNIT/ML VIAL 5000 UNIT SC ×3 (06:29→22:20)
[2020-03-09] MEDS: Nystatin Powder 15gm Bottle 1 APPLIC TOPICAL ×3 (06:30→22:30)
--- NOTE | 2020-03-09 06:41 | NURSING ---
Morning blood glucose was 135 on pt glucometer device.
[2020-03-09] MEDS: Ferrous Sulfate 325 MG Tablet PO (07:29)
[2020-03-09] MEDS: Gabapentin 800 MG Tablet PO ×3 (07:29→16:34)
[2020-03-09] MEDS: Aspirin 81 MG TAB.CHEW PO (07:29)
--- NOTE | 2020-03-09 08:45 | CASEMGMT ---
Addendum entered by Kassie Larios 03/09/20 11:53: SW faxed PT/OT to Loan at [facility]. SW spoke with Loan, updated her that PT/OT is faxed and to submit for pre-cert. Plan: [facility] pending pre-cert Addendum entered by Kassie Larios 03/09/20 10:00: BRANDON received message from Loan at [facility] stating they are able to accept pt but will need PT/OT notes to submit to insurance for pre-cert. SW reviewed chart. Pt refused PT/OT yesterday. SW in to speak with pt. SW updated pt that [facility] is able to accept pt but pt needs to work with PT/OT for insurance. BRANDON explained that in order for pt to get approved, she will need to work with PT/OT today so it can be submitted to insurance. Pt states understanding. Plan: [facility] pending pre-cert. Original Note: Social Work Note SW placed a call to Magali at [facility] and left message regarding referral. SW waiting for call back. Physician states medically pt should be ready for discharge tomorrow. Kassie Larios MANAGER WELLNESS, DEALER ACCOUNTS INVESTIGATOR
[2020-03-09 08:47] LABS: Absolute Lymphocyte Count 1.17 X10^3/uL (0.83-4.51); Absolute Neutrophil Count 3.5 X10^3/uL (2.0-7.7); Basophil# 0.03 X10^3/uL; Basophil% 0.6 % (0-1); Eosinophil# 0.26 X10^3/uL; Eosinophils% 4.8 % (0-5); Hematocrit 29.9 % (37-47); Hemoglobin 8.5 g/dL (12.0-15.0); Lymphocyte # 1.17 X10^3/ul (4.0); Lymphocyte % 21.5 % (19-41); Mean Corp Hgb Conc 28.4 g/dL (32-36); Mean Corpuscular Hgb 27.4 pg (27.0-32.0); Mean Corpuscular Volume 96.5 fL (81-99); Mean Platelet Vol. 10.3 fl (6.2-12.0); Monocyte% 9.2 % (0-10); NRBC Flagged by Analyzer 0 % (0-5); Neutrophil # 3.47 X10^3/uL (2.7-7.7); Neutrophil % 63.5 % (47-70); Platelet Count 193 K/mm3 (150-450); RBC Distribution Width CV 14.7 % (11.6-14.6); RBC Distribution Width SD 51.4 fl (35.1-43.9); White Blood Count 5.5 K/mm3 (4.4-11.0)
[2020-03-09 08:58] LABS: Anion Gap 9 (5-15); BUN 55 mg/dL (7-18); BUN/Creat Ratio 48.2 RATIO (10-20); Calcium,Total 8.2 mg/dL (8.5-10.1); Chloride 109 mmol/L (98-107); Creatinine, Serum 1.14 mg/dL (0.55-1.02); EST Glomerular Filtration Rate 51 mL/min (>60); Est Glom Filt Rate - Afr Amer 61 mL/min (>60); Estimated Creatinine Clearance 42.48 ml/min; Glucose 132 mg/dL (74-106); Potassium 3.9 mmol/L (3.5-5.1); Sodium Level 137 mmol/L (136-145)
[2020-03-09] MEDS: Fluconazole 100 MG Tablet 200 MG PO (10:30)
[2020-03-09] MEDS: DULoxetine Hcl 60 MG Capsule PO (10:30)
[2020-03-09] MEDS: Metoprolol Tartrate 25 MG Tablet PO ×2 (10:30→22:21)
[2020-03-09] MEDS: Clopidogrel Bisulfate 75 MG Tablet PO (10:31)
[2020-03-09] MEDS: Pantoprazole Sodium 20 MG Tablet PO (10:31)
[2020-03-09 10:32] LABS: Mucous, Urine 0 SEEN /hpf (<or=2+); Squamous Epithelial Cells - UA 0 SEEN /hpf (5-10)
[2020-03-09] MEDS: Glucerna Shake 120 ML LIQUID PO ×4 (10:32→22:17)
[2020-03-09 10:35] LABS: Color, Urine Yellow (Yellow); Glucose, Dipstick Normal (Normal); Ketone-Dipstick Negative (Negative); Leukocyte Esterase-Dipstick 100 /ul (Negative); Nitrite-Dipstick Positive (Negative); Occult Blood-Urine 250 /ul (Negative); Protein-Dipstick 30 mg/dl (Negative); Specific Gravity, Urine 1.015 (1.002-1.030); Urine Bilirubin Dipstick Negative (Negative); Urine Clarity Clear (Clear); Urine Urobilinogen Normal (Normal)
[2020-03-09 10:43] LABS: Bacteria 1+ /hpf (None Seen); Red Blood Cells-Urine 10-25 SEEN /hpf (0-5); White Blood Cells 10-25 SEEN /hpf (0-5)
[2020-03-09] MEDS: Insulin Lispro 100 UNIT/ML INSULN.PEN SC ×3 (11:19→22:26)
--- NOTE | 2020-03-09 11:48 | PN_ITS ---
Patient Problems: Active and Suspected Problems Acute renal failure (Acute) Generalized weakness (Acute) Unable to perform basic transfer without assistance (Acute) Physical debility (Acute) Acute kidney injury (Acute) Intertriginous candidiasis (Acute) Reason for Visit: Follow-up for acute kidney injury and generalized weakness Vitals/I&O's: Vital Signs Temp Pulse Resp BP Pulse Ox 97.8 F 83 18 131/45 H 96 03/09/20 06:00 03/09/20 10:30 03/09/20 06:00 03/09/20 06:00 03/09/20 06:00 Oxygen Flow Rate (L/min) 1 Oxygen Delivery Method Room Air Weight: 275 lb Body Mass Index (BMI) 47.2 Finger Stick Blood Glucose 111 Intake and Output for Last 24 Hours 03/07/20 03/08/20 03/09/20 23:59 23:59 23:59 Intake Total 300 / 300 3131.67 / 3731.67 1960 / 1960 Output Total 225 / 225 500 / 1000 1600 / 1600 Balance 75 / 75 2631.67 / 2731.67 360 / 360 General: Alert, Oriented x3, Cooperative HEENT: Atraumatic, PERRLA, EOMI, Normocephalic Neck: Supple, No JVD, Negative Carotid Bruits Lungs: Clear to auscultation, No rhonchi, No wheeze, No rales, Diminished Cardiovascular: Regular rate, Regular Rhythm, Normal S1, Normal S2, No murmurs Abdomen: Bowel Sounds Present, Soft, Non Tender, Non-Distended Extremities: Capillary Refill Less than 3 Seconds, Edema Skin: Ulcer/ Wound - Rash present on bilateral groin region. Stage II bilateral buttock/sacral decubitus ulcer, 4 x 1 x 1 cm. No evidence of drainage or active infection., Rash Present - [place] pigmentation of lower leg suggestive of venous stasis Musculoskeletal: No Tenderness to Palpation of Joints or Extremities, Muscle Wasting Neurological: Cranial nerves II-XII grossly intact, - - Bilateral lower legs weakness Psych/Mental Status: Normal Affect, Appropriate Microbiology Past 72 Hours 03/07/20 17:30 Urine, Clean Catch Urine Culture - Preliminary Gram negative [place] Laboratory Results 03/09/20 08:34: WBC 5.5, RBC 3.10 L, Hgb 8.5 L, Hct 29.9 L, MCV 96.5 D, MCH 27.4, MCHC 28.4 L D, RDW Std Deviation 51.4 H, RDW Coeff of Ash 14.7 H, Plt Count 193, MPV 10.3, Immature Gran % (Auto) 0.400, Neut % (Auto) 63.5, Lymph % (Auto) 21.5, [place] % (Auto) 9.2, Eos % (Auto) 4.8, Baso % (Auto) 0.6, Absolute Neuts (auto) 3.5, Absolute Lymphs (auto) 1.17, Nucleated RBC % 0 03/09/20 08:34: Sodium 137, Potassium 3.9, Chloride 109 H, Carbon Dioxide 19.0 L , Anion Gap 9, BUN 55 H, Creatinine 1.14 H, Estim Creat Clear Calc 42.48, Est GFR (MDRD) Af Amer 61, Est GFR (MDRD) Non-Af 51 L, BUN/Creatinine Ratio 48.2 H, Glucose 132 H, Calcium 8.2 L 03/09/20 10:22: Urine Color Yellow, Urine Clarity Clear, Urine pH 6.0, Ur Specific [place] 1.015, Urine Protein 30 H, Urine Glucose (UA) Normal, Urine Ketones Negative, Urine Occult Blood 250 H, Urine Nitrite Positive H, Urine Bilirubin Negative, Urine Urobilinogen Normal, Ur Leukocyte Esterase 100 H, Urine RBC 10-25 SEEN, Urine WBC 10-25 SEEN, Ur Squamous Epith Cells 0 SEEN, Urine Bacteria 1+, Urine Mucus 0 SEEN Current Medications Acetaminophen (Tylenol) 650 mg PO Q6H PRN PRN PRN Reason: Pain Score 1-10/Temp > 100.7 F Albuterol Sulfate (Ventolin Aerosols) 2.5 mg INHALATION Q4H PRN PRN PRN Reason: Shortness of breath, wheezing Last Admin: 03/08/20 04:22 Dose: 2.5 mg Documented by: Amitriptyline HCl (Elavil) 50 mg PO QHS [facility] Last Admin: 03/08/20 22:17 Dose: 50 mg Documented by: Aspirin (Aspirin, Baby) 81 mg PO DAILY@0800 [facility] Last Admin: 03/09/20 07:29 Dose: 81 mg Documented by: Atorvastatin Calcium (Lipitor) 80 mg PO QHS [facility] Last Admin: 03/08/20 22:17 Dose: 80 mg Documented by: Clopidogrel Bisulfate (Plavix) 75 mg PO DAILY [facility] Last Admin: 03/09/20 10:31 Dose: 75 mg Documented by: Dextrose (D50w Syringe) 0 gm IV X1 PRN; Protocol PRN Reason: Hypoglycemia Diphenoxylate HCl/Atropine (Lomotil) 1 tablet PO 4X/DAY PRN PRN PRN Reason: Diarrhea Duloxetine HCl (Cymbalta) 60 mg PO DAILY [facility] Last Admin: 03/09/20 10:30 Dose: 60 mg Documented by: Ferrous Sulfate (Ferrous Sulfate) 325 mg PO DAILY@0800 [facility] Last Admin: 03/09/20 07:29 Dose: 325 mg Documented by: Fluconazole (Diflucan) 200 mg PO DAILY [facility] Last Admin: 03/09/20 10:30 Dose: 200 mg Documented by: Gabapentin (Neurontin) 800 mg PO TIDCM [facility] Last Admin: 03/09/20 11:19 Dose: 800 mg Documented by: Glucagon () 1 mg IM .X1 PRN PRN Reason: Hypoglycemia Heparin Sodium (Porcine) (Heparin Na) 5,000 unit SC Q8 [facility] Last Admin: 03/09/20 06:29 Dose: 5,000 unit Documented by: Sodium Chloride () 1,000 mls @ 100 mls/hr IV .Q10H [facility] Last Admin: 03/09/20 03:20 Dose: 100 mls/hr Documented by: Sodium Chloride () 250 mls @ 15 mls/hr IV .[id number] PRN PRN Reason: Saline Flush Sodium Chloride () 250 mls @ 15 mls/hr IV .[id number] PRN PRN Reason: Additional IVPB Infusion Insulin Glargine (Lantus (Bkc)) 68 units SC QHS [facility] Last Admin: 03/08/20 22:19 Dose: 68 units Documented by: Insulin Human Lispro (Humalog Kwikpen (Bkc)) 0 unit SC ACHS [facility]; Protocol Last Admin: 03/09/20 11:19 Dose: 1 units Documented by: Magnesium Hydroxide (Milk Of Magnesia) 30 ml PO DAILY [facility] Last Admin: 03/09/20 10:31 Dose: Not Given Documented by: Metoprolol Tartrate (Lopressor (Beta [place])) 25 mg PO BID [facility] Last Admin: 03/09/20 10:30 Dose: 25 mg Documented by: Nutritional Formula (Milo - [place] Flavor) 1 packet PO BIDCM [facility] Last Admin: 03/09/20 07:29 Dose: Not Given Documented by: Nutritional Formula (Lactose Free) (Glucerna Shake) 120 ml PO 4X/DAY [facility] Last Admin: 03/09/20 10:32 Dose: 120 ml Documented by: Nystatin (Mycostatin Powder) 1 applic TOPICAL TID [facility]; Protocol Last Admin: 03/09/20 06:30 Dose: 1 applicatio Documented by: Ondansetron HCl (Zofran) 4 mg IV Q8H PRN PRN PRN Reason: NAUSEA/VOMITING Oxycodone HCl (Oxyir) 5 mg PO Q6H PRN PRN PRN Reason: Pain Score 6-10/10 Last Admin: 03/08/20 22:59 Dose: 5 mg Documented by: Pantoprazole Sodium (Protonix) 20 mg PO DAILY [facility] Last Admin: 03/09/20 10:31 Dose: 20 mg Documented by: Senna/Docusate Sodium (Senokot-S, Gina-Colace) 2 tablet PO BID PRN PRN PRN Reason: Constipation Sodium Chloride () 10 - 40 ml IV UD PRN PRN Reason: SALINE FLUSH Tramadol HCl (Ultram) 50 mg PO Q6H PRN PRN PRN Reason: Pain Score 4-5/10 Last Admin: 03/08/20 16:07 Dose: 50 mg Documented by: Zolpidem Tartrate (Ambien (Generic)) 5 mg PO QHS PRN PRN PRN Reason: INSOMNIA STROKE Vital Signs/Narrative: Vital Signs Pulse 03/09/20 10:30 83 Medical Necessity - Tobacco Use Smoking Status: Light Smoker (<10/day) Tobacco Use: Cigarettes Assessment/Plan All Active Problems Acute renal failure (Acute) Generalized weakness (Acute) Unable to perform basic transfer without assistance (Acute) Physical debility (Acute) Acute kidney injury (Acute) Intertriginous candidiasis (Acute) This is a 64 years old female patient presented to the emergency room because of generalized weakness, difficulty ambulating and she was found to have acute kidney injury in addition to worsening bilateral groin/genital intertrigo with secondary fungal infection and also had a history of chronic nonhealing bilateral buttocks/sacral ulcers without evidence of acute infection and she is being admitted for treatment. #1 Acute kidney injury most likely a medication side effect, prerenal etiology: Home medication HCTZ, lisinopril were held. Baseline kidney function BUN 27, creatinine 0.94 on 02/19/2020. Creatinine is improving. UA shows 5-10 WBC, LE 100 but negative nitrite. Urine culture pending. Currently no indication for IV antibiotic as patient does not have symptoms signs of UTI including burning micturition, increased frequency, urgency or fever. It seems patient has asymptomatic bacteriuria. Discussed with ID Dr. Gatica. Kidneys ultrasound was done which reported no kidney stone/nephrolithiasis or obstructive uropathy. There is further improvement in BUN/creatinine. Repeat UA shows improvement in hematuria 10-25 cells, WBC 10-25 cells. Patient had recent history of multi resistant Proteus mirabilis UTI/cystitis. [place] count 11,000-25,000 with sensitive only to cefepime, ertapenem and gentamicin. #2 Progressive bilateral groin/genital intertrigo with secondary fungal infection: Patient was discharged from the hospital on February 20, 2020, was discharged on nystatin powder and Diflucan. On Diflucan 400 mg daily and topical nystatin powder. Discussed with the wound care nurse Sayda. #3 stage II bilateral buttocks pressure ulcers/sacral ulcer: There is mild slough which was debrided. Discussed with the plastic surgeon Dr. Mack and advised to follow-up with wound clinic after discharge. #4 functional decline/physical debility/functional quadriplegia: Her baseline moving around through wheelchair. She wants to go to SNF where they can permit for her smoking and there is no infection of COVID-19. #5 type 2 diabetes mellitus: ADA diet, Accu-Cheks, insulin sliding scale, hold metformin for now. Hemoglobin A1c was 6.5% 2 weeks ago. #6 CAD status post CABG: Stable, no acute ischemic changes. Troponin is negative. Continue aspirin, statins, Plavix, metoprolol, hold lisinopril. #7 COPD: Pulse ox is maintained on room air. Chest x-ray reported no acute cardiopulmonary pathology. #8 hyperlipidemia: Continue statins. 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 #10 DVT prophylaxis: Subcu Lovenox. Microbiology Past 72 Hours 03/07/20 17:30 Urine, Clean Catch Urine Culture - Preliminary Gram negative [place] Laboratory Results 03/09/20 08:34: WBC 5.5, RBC 3.10 L, Hgb 8.5 L, Hct 29.9 L, MCV 96.5 D, MCH 27.4, MCHC 28.4 L D, RDW Std Deviation 51.4 H, RDW Coeff of Ash 14.7 H, Plt Count 193, MPV 10.3, Immature Gran % (Auto) 0.400, Neut % (Auto) 63.5, Lymph % (Auto) 21.5, [place] % (Auto) 9.2, Eos % (Auto) 4.8, Baso % (Auto) 0.6, Absolute Neuts (auto) 3.5, Absolute Lymphs (auto) 1.17, Nucleated RBC % 0 03/09/20 08:34: Sodium 137, Potassium 3.9, Chloride 109 H, Carbon Dioxide 19.0 L , Anion Gap 9, BUN 55 H, Creatinine 1.14 H, Estim Creat Clear Calc 42.48, Est GFR (MDRD) Af Amer 61, Est GFR (MDRD) Non-Af 51 L, BUN/Creatinine Ratio 48.2 H, Glucose 132 H, Calcium 8.2 L 03/09/20 10:22: Urine Color Yellow, Urine Clarity Clear, Urine pH 6.0, Ur Specific [place] 1.015, Urine Protein 30 H, Urine Glucose (UA) Normal, Urine Ketones Negative, Urine Occult Blood 250 H, Urine Nitrite Positive H, Urine Bilirubin Negative, Urine Urobilinogen Normal, Ur Leukocyte Esterase 100 H, Urine RBC 10-25 SEEN, Urine WBC 10-25 SEEN, Ur Squamous Epith Cells 0 SEEN, Urine Bacteria 1+, Urine Mucus 0 SEEN Clinical Impression(s) from Imaging Studies Chest X-Ray 03/07/20 16:35 IMPRESSION: No acute cardiopulmonary pathology Electronically Signed: Robert Sifuentes MD at 17:10 EDT , Service support , Renal Ultrasound 03/08/20 13:24 IMPRESSION: No obstructive uropathy or suspicious solid renal lesion Bilateral simple renal cysts, no specific follow-up needed Inpatient E&M: 67402 Subs Hosp L2
[2020-03-09] MEDS: oxyCODONE 5 MG Tablet PO (13:38)
[2020-03-09] MEDS: Atorvastatin Calcium 80 MG Tablet PO (22:20)
[2020-03-09] MEDS: Amitriptyline 25 MG Tablet 50 MG PO (22:20)
--- NOTE | 2020-03-09 22:44 | NURSING ---
Patient's blood glucose was 212 on her personal device.
[2020-03-10] VITALS (8 sets, daily range): BP systolic 134–160; BP diastolic 40–67; PULSE 67–81; RESP 16–20; TEMP 36.4–36.8; O2SAT 96–98
--- NOTE | 2020-03-10 06:38 | NURSING ---
Patient's blood sugar was 105 on her own device.
[2020-03-10] MEDS: Nystatin Powder 15gm Bottle 1 APPLIC TOPICAL ×3 (06:46→23:18)
[2020-03-10] MEDS: Heparin Injection (Vial) 5,000 UNIT/ML VIAL 5000 UNIT SC ×3 (06:47→23:16)
[2020-03-10] MEDS: Ferrous Sulfate 325 MG Tablet PO (09:28)
[2020-03-10] MEDS: Aspirin 81 MG TAB.CHEW PO (09:28)
[2020-03-10] MEDS: Gabapentin 800 MG Tablet PO ×3 (09:28→17:25)
[2020-03-10] MEDS: DULoxetine Hcl 60 MG Capsule PO (09:28)
[2020-03-10] MEDS: Fluconazole 100 MG Tablet 200 MG PO (09:29)
[2020-03-10] MEDS: Clopidogrel Bisulfate 75 MG Tablet PO (09:29)
[2020-03-10] MEDS: Metoprolol Tartrate 25 MG Tablet PO ×2 (09:29→23:21)
[2020-03-10] MEDS: Pantoprazole Sodium 20 MG Tablet PO (09:29)
[2020-03-10] MEDS: Glucerna Shake 120 ML LIQUID PO ×3 (09:33→23:11)
[2020-03-10] MEDS: 0.9% Normal Saline 1,000 ML 100 ML IV ×2 (09:34→22:37)
--- NOTE | 2020-03-10 09:40 | EKG12_ITS ---
Test Reason : Blood Pressure : / mmHG Vent. Rate : 070 BPM Atrial Rate : 070 BPM P-R Int : 164 ms QRS Dur : 140 ms QT Int : 418 ms P-R-T Axes : 054 -23 019 degrees QTc Int : 451 ms Normal sinus rhythm Right bundle branch block Lateral infarct (cited on or before 25-DEC-2017) Abnormal ECG When compared with ECG of 07-MAR-2020 16:39, No significant change was found Confirmed by SHEKHAR BHAT, HOLLI ([id number]), material expeditor RICARDO DASILVA ([id number]) on 03/12/2020 9:18:33 AM Referred By: KATHARINE Confirmed By:HOLLI CORRIGAN MD
--- NOTE | 2020-03-10 11:26 | CASEMGMT ---
Addendum entered by Kassie Larios 03/10/20 15:03: BRANDON placed another call to Magali a [facility] asking about pre-cert. Magali states she still hasn't heard anything regarding pre-cert. BRANDON informed Magali that this worker is on floor till about 4:00pm so she can call this worker until then but if she receives pre-cert after 4:00pm to call [facility] main number. BRANDON provided main [facility] number. Original Note: Social Work Note BRANDON placed a call to Magali at [facility]. BRANDON asked Magali about pre-cert. Magali states she hasn't heard anything regarding pt's pre-cert yet. BRANDON informed Magali that pt is medically ready for discharge once pre-cert is obtained. Plan: [place] [facility] pending pre-cert Kassie Larios ENERGY SYSTEMS ENGINEER, [employer] CURTAIN MACHINE TENDER
[2020-03-10 11:46] LABS: Bedside Glucose 169 mg/dL (70-110)
[2020-03-10] MEDS: Ciprofloxacin 400 MG/200 ML BAG 200 MG IV (12:58)
[2020-03-10] MEDS: Insulin Lispro 100 UNIT/ML INSULN.PEN SC ×3 (13:00→23:13)
--- NOTE | 2020-03-10 13:07 | PCM.PN.HOSP ---
Patient Problems: Active and Suspected Problems Acute renal failure (Acute) Generalized weakness (Acute) Unable to perform basic transfer without assistance (Acute) Physical debility (Acute) Acute kidney injury (Acute) Intertriginous candidiasis (Acute) Reason for Visit: Multiple problems including sacral decubitus ulcer, indwelling Guy catheter with colonization, pseudomonas aeruginosa Objective: No fever or chills no tachycardia, tachypnea or hypoxia. On exam General: Alert, Oriented x3, Cooperative HEENT: Atraumatic, PERRLA, EOMI, Normocephalic Neck: Supple, No JVD, Negative Carotid Bruits Lungs: Clear to auscultation, No rhonchi, No wheeze, No rales, Diminished Cardiovascular: Regular rate, Regular Rhythm, Normal S1, Normal S2, No murmurs Abdomen: Bowel Sounds Present, Soft, Non Tender, Non-Distended Extremities: Capillary Refill Less than 3 Seconds, Edema Skin: Ulcer/ Wound - Rash present on bilateral groin region. Stage II left ischium/sacral decubitus ulcer, 4 x 1 x 1 cm. No evidence of drainage or active infection. Grayish discoloration of lower leg suggestive of venous stasis Musculoskeletal: No Tenderness to Palpation of Joints or Extremities, Muscle Wasting Neurological: Cranial nerves II-XII grossly intact, - - Bilateral lower legs weakness Psych/Mental Status: Normal Affect, Appropriate Vitals/I&O's: Vital Signs Temp Pulse Resp BP Pulse Ox 98.1 F 67 16 160/40 H 96 03/10/20 11:45 03/10/20 11:45 03/10/20 11:45 03/10/20 11:45 03/10/20 11:45 Oxygen Flow Rate (L/min) 1 Oxygen Delivery Method Room Air Weight: 275 lb Body Mass Index (BMI) 47.2 Finger Stick Blood Glucose 111 Intake and Output for Last 24 Hours 03/08/20 03/09/20 03/10/20 23:59 23:59 23:59 Intake Total 3131.67 / 3731.67 3946.67 / 4446.67 2548.33 / 2548.33 Output Total 500 / 1000 2550 / 3410 2640 / 2640 Balance 2631.67 / 2731.67 1396.67 / 1036.67 -91.67 / -91.67 Microbiology Past 72 Hours 03/07/20 17:30 Urine, Clean Catch Urine Culture - Final Pseudomonas aeroginosa Laboratory Results 03/10/20 11:43: POC Glucose 169 H Current Medications Acetaminophen (Tylenol) 650 mg PO Q6H PRN PRN PRN Reason: Pain Score 1-10/Temp > 100.7 F Albuterol Sulfate (Ventolin Aerosols) 2.5 mg INHALATION Q4H PRN PRN PRN Reason: Shortness of breath, wheezing Last Admin: 03/08/20 04:22 Dose: 2.5 mg Documented by: Amitriptyline HCl (Elavil) 50 mg PO QHS [facility] Aspirin (Aspirin, Baby) 81 mg PO DAILY@0800 [facility] Last Admin: 03/10/20 09:28 Dose: 81 mg Documented by: Atorvastatin Calcium (Lipitor) 80 mg PO QHS [facility] Last Admin: 03/09/20 22:20 Dose: 80 mg Documented by: Clopidogrel Bisulfate (Plavix) 75 mg PO DAILY [facility] Last Admin: 03/10/20 09:29 Dose: 75 mg Documented by: Dextrose (D50w Syringe) 0 gm IV X1 PRN; Protocol PRN Reason: Hypoglycemia Diphenoxylate HCl/Atropine (Lomotil) 1 tablet PO 4X/DAY PRN PRN PRN Reason: Diarrhea Ferrous Sulfate (Ferrous Sulfate) 325 mg PO DAILY@0800 [facility] Last Admin: 03/10/20 09:28 Dose: 325 mg Documented by: Fluconazole (Diflucan) 200 mg PO DAILY [facility] Last Admin: 03/10/20 09:29 Dose: 200 mg Documented by: Gabapentin (Neurontin) 800 mg PO TIDCM [facility] Last Admin: 03/10/20 13:00 Dose: 800 mg Documented by: Glucagon () 1 mg IM .X1 PRN PRN Reason: Hypoglycemia Heparin Sodium (Porcine) (Heparin Na) 5,000 unit SC Q8 [facility] Last Admin: 03/10/20 06:47 Dose: 5,000 unit Documented by: Sodium Chloride () 1,000 mls @ 100 mls/hr IV .Q10H [facility] Last Infusion: 03/10/20 13:03 Dose: 0 mls/hr Documented by: Sodium Chloride () 250 mls @ 15 mls/hr IV .[id number] PRN PRN Reason: Saline Flush Sodium Chloride () 250 mls @ 15 mls/hr IV .[id number] PRN PRN Reason: Additional IVPB Infusion Ciprofloxacin (Cipro) 400 mg in 200 mls @ 200 mls/hr IV Q12 [facility] Last Admin: 03/10/20 12:58 Dose: 200 mls/hr Documented by: Insulin Glargine (Lantus (Bk)) 68 units SC QHS [facility] Last Admin: 03/09/20 22:25 Dose: 68 units Documented by: Insulin Human Lispro (Humalog Kwikpen ([facility])) 0 unit SC ACHS [facility]; Protocol Last Admin: 03/10/20 13:00 Dose: 1 units Documented by: Magnesium Hydroxide (Milk Of Magnesia) 30 ml PO DAILY [facility] Last Admin: 03/10/20 10:19 Dose: Not Given Documented by: Metoprolol Tartrate (Lopressor (Beta [place])) 25 mg PO BID [facility] Last Admin: 03/10/20 09:29 Dose: 25 mg Documented by: Nutritional Formula (Milo - [place] Flavor) 1 packet PO BIDCM [facility] Last Admin: 03/10/20 09:28 Dose: Not Given Documented by: Nutritional Formula (Lactose Free) (Glucerna Shake) 120 ml PO 4X/DAY [facility] Last Admin: 03/10/20 09:33 Dose: 120 ml Documented by: Nystatin (Mycostatin Powder) 1 applic TOPICAL TID [facility]; Protocol Last Admin: 03/10/20 06:46 Dose: 1 applicatio Documented by: Oxycodone HCl (Oxyir) 5 mg PO Q6H PRN PRN PRN Reason: Pain Score 6-10/10 Last Admin: 03/09/20 13:38 Dose: 5 mg Documented by: Pantoprazole Sodium (Protonix) 20 mg PO DAILY [facility] Last Admin: 03/10/20 09:29 Dose: 20 mg Documented by: Senna/Docusate Sodium (Senokot-S, Gina-Colace) 2 tablet PO BID PRN PRN PRN Reason: Constipation Sodium Chloride () 10 - 40 ml IV UD PRN PRN Reason: SALINE FLUSH Tramadol HCl (Ultram) 50 mg PO Q6H PRN PRN PRN Reason: Pain Score 4-5/10 Last Admin: 03/08/20 16:07 Dose: 50 mg Documented by: Zolpidem Tartrate (Ambien (Generic)) 5 mg PO QHS PRN PRN PRN Reason: INSOMNIA STROKE Vital Signs/Narrative: Vital Signs Temp Pulse Resp BP Pulse Ox 03/10/20 11:45 98.1 F 67 16 160/40 H 96 03/10/20 09:29 74 Medical Necessity - Tobacco Use Smoking Status: Light Smoker (<10/day) Tobacco Use: Cigarettes Assessment/Plan All Active Problems Acute renal failure (Acute) Generalized weakness (Acute) Unable to perform basic transfer without assistance (Acute) Physical debility (Acute) Acute kidney injury (Acute) Intertriginous candidiasis (Acute) This is a 64 years old female patient presented to the emergency room because of generalized weakness, difficulty ambulating and she was found to have acute kidney injury in addition to worsening bilateral groin/genital intertrigo with secondary fungal infection and also had a history of chronic nonhealing bilateral buttocks/sacral ulcers without evidence of acute infection and she is being admitted for treatment. #1 Acute kidney injury most likely a medication side effect, prerenal etiology: Home medication HCTZ, lisinopril were held. Baseline kidney function BUN 27, creatinine 0.94 on 02/19/2020. Creatinine is improving. Monitor BMP. 2. Indwelling Guy catheter colonization with pseudomonas aeruginosa/asymptomatic bacteriuria: UA shows 5-10 WBC, LE 100 but negative nitrite. Patient does not have fever, tachycardia or signs of infection. No leukocytosis. Patient has indwelling Guy catheter for many months secondary to sacral decubitus ulcer. Urine culture shows pseudomonas aeruginosa more than 100,000 colonies. Discussed with ID Dr. Gatica and we agreed no need for IV antibiotic although she got 1 dose of Cipro in the morning. Advised change of catheter. Patient had change of uro-bag in the ER but not Guy catheter. Kidneys ultrasound was done which reported no kidney stone/nephrolithiasis or obstructive uropathy. #3 stage II right ischium, buttocks pressure ulcers/sacral ulcer: There is mild slough which was debrided by wound nurse. Discussed with the plastic surgeon Dr. Mack and advised to follow-up with wound clinic after discharge. Patient has 2 wounds one on right ischium, pressure injury stage II. Second 1 on sacrum, about 7 x 5 x 0.2 cm is covered with slough and unstageable. Wound size is 4 x 1 x 1 cm patient had bedside debridement by wound nurse, irrigated with saline Progressive bilateral groin/genital intertrigo with secondary fungal infection: On Diflucan 400 mg daily and topical nystatin powder. #4 functional decline/physical debility/functional quadriplegia: Her baseline moving around through wheelchair. #5 type 2 diabetes mellitus: ADA diet, Accu-Cheks, insulin sliding scale, hold metformin for now. Hemoglobin A1c was 6.5% 2 weeks ago. #6 CAD status post CABG: Stable, no acute ischemic changes. Troponin is negative. Continue aspirin, statins, Plavix, metoprolol, hold lisinopril. #7 COPD: Pulse ox is maintained on room air. Chest x-ray reported no acute cardiopulmonary pathology. #8 hyperlipidemia: Continue statins. 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 #10 DVT prophylaxis: Subcu Lovenox. Microbiology Past 72 Hours 03/07/20 17:30 Urine, Clean Catch Urine Culture - Preliminary Gram negative [place] Laboratory Results 03/09/20 08:34: WBC 5.5, RBC 3.10 L, Hgb 8.5 L, Hct 29.9 L, MCV 96.5 D, MCH 27.4, MCHC 28.4 L D, RDW Std Deviation 51.4 H, RDW Coeff of Ash 14.7 H, Plt Count 193, MPV 10.3, Immature Gran % (Auto) 0.400, Neut % (Auto) 63.5, Lymph % (Auto) 21.5, [place] % (Auto) 9.2, Eos % (Auto) 4.8, Baso % (Auto) 0.6, Absolute Neuts (auto) 3.5, Absolute Lymphs (auto) 1.17, Nucleated RBC % 0 03/09/20 08:34: Sodium 137, Potassium 3.9, Chloride 109 H, Carbon Dioxide 19.0 L, Anion Gap 9, BUN 55 H, Creatinine 1.14 H, Estim Creat Clear Calc 42.48, Est GFR (MDRD) Af Amer 61, Est GFR (MDRD) Non-Af 51 L, BUN/Creatinine Ratio 48.2 H, Glucose 132 H, Calcium 8.2 L 03/09/20 10:22: Urine Color Yellow, Urine Clarity Clear, Urine pH 6.0, Ur Specific [place] 1.015, Urine Protein 30 H, Urine Glucose (UA) Normal, Urine Ketones Negative, Urine Occult Blood 250 H, Urine Nitrite Positive H, Urine Bilirubin Negative, Urine Urobilinogen Normal, Ur Leukocyte Esterase 100 H, Urine RBC 10-25 SEEN, Urine WBC 10-25 SEEN, Ur Squamous Epith Cells 0 SEEN, Urine Bacteria 1+, Urine Mucus 0 SEEN Clinical Impression(s) from Imaging Studies Chest X-Ray 03/07/20 16:35 IMPRESSION: No acute cardiopulmonary pathology Renal Ultrasound 03/08/20 13:24 IMPRESSION: No obstructive uropathy or suspicious solid renal lesion Bilateral simple renal cysts, no specific follow-up needed Inpatient E&M: [id number] Subs Hosp L2
--- NOTE | 2020-03-10 13:11 | NURSING ---
pt declined nursing calling update to family
[2020-03-10] MEDS: oxyCODONE 5 MG Tablet PO ×2 (15:04→23:33)
--- NOTE | 2020-03-10 15:50 | CASEMGMT ---
Social Work Note BRANDON updated by RN that pt's son is living off pt's income as he doesn't have a job and pt has concerns with going to SNF because her son will become homeless without her income. SW in to speak with pt. SW updated pt that pre-cert is still pending and she will remain at [facility] until pre-cert is obtained. Pt states I am not mentally ready to go to SNF. SW asked pt to elaborate. Pt states I am in between a rock and hard place. Pt states that her son is living with her and is living off of her income and if she does to SNF, the SNF will take her income and he will end up homeless. Pt states that her son doesn't have a job, he doesn't drive, and his job was taking care of her 30/04. Pt states that he will not have any income once she is in SNF. SW explained that pt is going under Medcare benefit for caresource at this time so initially her income shouldn't be affected by going to SNF. SW explained that if placement in SNF turns into long term care pharmacist, then her income could eventually be affected by told pt that that gives her son some time to figure out what he is going to do if she is unable to return home. Pt states she would like to eventually return home but is realizing that she may need to stay long term care pharmacist in SNF. Pt states her knee hurts and they are not able to do any surgery about it. SW explained that once pt goes to SNF and gets wound care and therapy daily, maybe she will get strong enough that she is able to eventually return home. SW explored with pt her feelings. Pt states that it is her fault that her son no longer has a job. SW asked pt to explain. Pt states that a few years ago her physician told her that she either needed 24/7 care or needed to go to a SNF so pt's son quit his job to stay home and take care of her. SW explained that that was also her son's choice to do that and he didn't have to do that. Pt states that at that time she was driving her son to his job. Pt states that her son told her that if he becomes homeless he is going to kill himself. SW provided support to pt and informed pt of resources that her soon could look into including [facility], [employer], [employer], [employer], [facility]. SW asked pt if she had any family or friends that could help her son. Pt states that she has a brother who may be willing to help. Pt states that her brother's just left him. SW explained that maybe her son and her brother could help each other out during this time and be good support for each other. Pt states that her bother should be able to help out. Pt states that her son doesn't have his license and never got his license. Pt states that he has medicaid currently. SW explained that sometimes under medicaid, people can get transportation assistance and encouraged her son to call [facility] to inquire about transportation resources. Pt states I just want to . SW spoke with pt regarding those feelings. Pt states I just have pain all over and I don't want to feel the pain anymore. Pt states that she is referring to her physical pain. SW spoke with pt about how coming to [facility] and going to SNF for help are good steps to take to get pt to feeling better. Pt states that she wants to feel better and get better and live her life. SW spoke with pt regarding current frustrations and likely depressive feelings that pt is currently having. Per H+P, pt does have history of depression. Pt denied any current suicidal thoughts/plans/ideations. SW spent much time with pt talking about her feelings and emotions and difficult situation that pt is currently in. BRANDON informed pt that this worker can put together a packet of resources and information that she can relay to her son and to her brother. Pt receptive to taking information. BRANDON provided pt with packet of information including [facility], [employer], [place] [address], [employer], [employer], and [facility]. Pt thanked this worker, again denied any suicidal thoughts/plans/ideations. BRANDON did place green sheet, transport form, COVID transfer form, and completed [facility] on pt's chart in the event pre-cert is still obtained. BRANDON called Berna with [facility] and left message. Kassie Larios ENGINE REPAIRER, [employer]
[2020-03-10 16:16] LABS: Bedside Glucose 171 mg/dL (70-110)
[2020-03-10] MEDS: Amitriptyline 25 MG Tablet 50 MG PO (23:17)
[2020-03-10] MEDS: Atorvastatin Calcium 80 MG Tablet PO (23:17)
[2020-03-11 02:48] VITALS: BP 152/91; PULSE 87; RESP 18; TEMP 36.8; O2SAT 97
[2020-03-11 05:53] LABS: Absolute Lymphocyte Count 1.14 X10^3/uL (0.83-4.51); Basophil# 0.02 X10^3/uL; Basophil% 0.4 % (0-1); Eosinophil# 0.31 X10^3/uL; Eosinophils% 6.2 % (0-5); Hematocrit 25.8 % (37-47); Hemoglobin 7.9 g/dL (12.0-15.0); Lymphocyte # 1.14 X10^3/ul (4.0); Lymphocyte % 22.6 % (19-41); Mean Corp Hgb Conc 30.6 g/dL (32-36); Mean Corpuscular Hgb 27.3 pg (27.0-32.0); Mean Corpuscular Volume 89.3 fL (81-99); Mean Platelet Vol. 10.4 fl (6.2-12.0); Monocyte# 0.51 X10^3/uL; Monocyte% 10.1 % (0-10); NRBC Flagged by Analyzer 0 % (0-5); Neutrophil # 3.04 X10^3/uL (2.7-7.7); Neutrophil % 60.3 % (47-70); Platelet Count 196 K/mm3 (150-450); RBC Distribution Width CV 14.3 % (11.6-14.6); RBC Distribution Width SD 46.2 fl (35.1-43.9); Red Blood Count 2.89 M/mm3 (4.2-5.4)
[2020-03-11 06:30] LABS: Anion Gap 6 (5-15); BUN 21 mg/dL (7-18); BUN/Creat Ratio 31.2 RATIO (10-20); Calcium,Total 8.6 mg/dL (8.5-10.1); Chloride 107 mmol/L (98-107); Creatinine, Serum 0.67 mg/dL (0.55-1.02); EST Glomerular Filtration Rate 93 mL/min (>60); Est Glom Filt Rate - Afr Amer 113 mL/min (>60); Estimated Creatinine Clearance 72.29 ml/min; Glucose 231 mg/dL (74-106); Potassium 4.2 mmol/L (3.5-5.1); Sodium Level 137 mmol/L (136-145)
[2020-03-11] MEDS: Nystatin Powder 15gm Bottle 1 APPLIC TOPICAL ×2 (06:30→12:25)
[2020-03-11] MEDS: Heparin Injection (Vial) 5,000 UNIT/ML VIAL 5000 UNIT SC (06:31)
[2020-03-11] MEDS: Insulin Lispro 100 UNIT/ML INSULN.PEN SC ×3 (06:32→15:41)
[2020-03-11 06:41] LABS: Bedside Glucose 226 mg/dL (70-110)
--- NOTE | 2020-03-11 09:05 | PCM.TXEXTCAR ---
- Diet 03/07/20 20:04 Diet: Calorie Controlled Food consistency:: Regular Liquid Consistency:: Regular/Thin How many daily calories?: 1800 calorie Diet: Cardiac/Low Cholesterol Food consistency:: Regular Liquid Consistency:: Regular/Thin - Routine Orders/Code Status Suppository Type: Dulcolax 10mg Suppository Frequency: Daily PRN Routine Lab Work: CBC, BMP - every 3 days - Wound(s) pannus Wound Type: Excoriated Dressing Change: InterDry coccyx Wound Type: Pressure Injury Dressing Change: Wet to Dry Dressing Distal Coccyx Wound Type: Pressure Injury Midline Coccyx Wound Type: Pressure Injury Abdomen Wound Type: scattered sores Left Cuevas Wound Type: scabs sacrum Wound Type: Pressure Injury Dressing Change: Mepilex right ischium Wound Type: Pressure Injury Dressing Change: Mepilex Groin Wound Type: Excoriation - Therapies Weight Bearing: Weight bearing as tolerated Extremity Affected:: Bilateral Lower Physical Therapy: Eval and Treat Occupational Therapy: Eval and Treat Speech Therapy: Eval and Treat - Allergies/Procedures Done in Hospital Allergies/Adverse Reactions: Allergies povidone-iodine [From Betadine] Allergy (Verified 03/07/20 15:27) Itching topical betadine prednisone Allergy (Verified 03/07/20 15:27) tiny mouth ulcers - Type of Care/Length of Stay Estimated LOS: Convalescent Care Less Than 30 days Type of Care Needed: Skilled Rehab Potential: Fair Prognosis: Fair - Additional Orders/Day of Discharge Day of Discharge: 03/11/20 - Dietary and Speech Recommendations Dietitian Recommendations/Changes: Will order Milo bid to help w/ skin healing - Follow Up Care Primary Care Physician: Gera Snider III, MD [Primary Care Provider] - Please follow up with your Primary Care Physician in: in 1-2 week Please Follow Up With: Ramya Ferrara MD When: in 1-2 week for ELVIA
--- NOTE | 2020-03-11 09:07 | PCM.DC.SUM ---
Discharge Date and Diagnosis - Problem List Patient Problems: Active and Suspected Problems Acute renal failure (Acute) Generalized weakness (Acute) Unable to perform basic transfer without assistance (Acute) Physical debility (Acute) Acute kidney injury (Acute) Intertriginous candidiasis (Acute) Date of Admission: 03/07/20 Date of Discharge: 03/11/20 - Primary Discharge Diagnosis Acute Problems: Active Problems Acute renal failure (Acute) Generalized weakness (Acute) Unable to perform basic transfer without assistance (Acute) Physical debility (Acute) Acute kidney injury (Acute) Intertriginous candidiasis (Acute) - Secondary Discharge Diagnosis Chronic Problems: Chronic Problems Stage II pressure ulcer of right buttock (Chronic) Stage II pressure ulcer of left buttock (Chronic) Obesity, morbid (Chronic) Decubitus ulcer of coccygeal region, stage 3 (Chronic) Tobacco abuse (Chronic) COPD (chronic obstructive pulmonary disease) (Chronic) Depression (Chronic) Dyslipidemia (Chronic) Pressure ulcer of left heel, stage 2 (Chronic) Stage III pressure ulcer of sacral region (Chronic) Diabetic neuropathy (Chronic) Peripheral vascular disease in diabetes mellitus (Chronic) Diabetes mellitus type II (Chronic) Coronary artery disease (Chronic) Status post CABG Cancer of vulva (Chronic) Status post radical vulvectomy and radiotherapy in January 2014 Hospital Course and Treatment Consultations 03/07/20 20:03 Consult: Onc/Wound/photoengraving photographer Routine Comment: 03/07/20 23:31 Consult: Onc/Wound/photoengraving photographer Routine Comment: Reason for Consult:: wound to coccyx Operations: None, - - I&D Summary of Care Provided: [] This is a 64 years old female patient presented to the emergency room because of generalized weakness, difficulty ambulating and she was found to have acute kidney injury in addition to worsening bilateral groin/genital intertrigo with secondary fungal infection and also had a history of chronic nonhealing bilateral buttocks/sacral ulcers without evidence of acute infection and she is being admitted for treatment. #1 Acute kidney injury most likely a medication side effect, prerenal etiology: Home medication HCTZ, lisinopril were held. Baseline kidney function BUN 27, creatinine 0.94 on 02/19/2020. Creatinine improved to baseline, last 121/0.67. 2. Indwelling Guy catheter colonization with pseudomonas aeruginosa/asymptomatic bacteriuria: UA shows 5-10 WBC, LE 100 but negative nitrite. Patient does not have fever, tachycardia or signs of infection. No leukocytosis. Patient has indwelling Guy catheter for many months secondary to sacral decubitus ulcer. Urine culture shows pseudomonas aeruginosa more than 100,000 colonies. Discussed with ID Dr. Gatica and we agreed no need for antibiotic although she got 1 dose of Cipro in the morning. Guy catheter was changed. Kidneys ultrasound was done which reported no kidney stone/nephrolithiasis or obstructive uropathy. #3 stage II right ischium, buttocks pressure ulcers/sacral ulcer: There is mild slough which was debrided by wound nurse. Discussed with the plastic surgeon Dr. Mack and advised to follow-up with wound clinic after discharge. Patient has 2 wounds one on right ischium, pressure injury stage II. Second 1 on sacrum, about 7 x 5 x 0.2 cm is covered with slough and unstageable. Wound size is 4 x 1 x 1 cm patient had bedside debridement by wound nurse, irrigated with saline Progressive bilateral groin/genital intertrigo with secondary fungal infection: On Diflucan 400 mg daily and topical nystatin powder. Hypertension: Blood pressure is elevated. Patient is started back on HCTZ 12.5 mg daily. Monitor kidney function and electrolytes in SNF and if creatinine remains stable, can start with low-dose of lisinopril starting 5 mg daily. Patient will need alternative BP control medications including calcium channel dakota or hydralazine. Follow-up with PCP in SNF. #4 functional decline/physical debility/functional quadriplegia: Her baseline moving around through wheelchair. #5 type 2 diabetes mellitus: ADA diet, Accu-Cheks, insulin sliding scale, hold metformin for now. Hemoglobin A1c was 6.5% 2 weeks ago. #6 CAD status post CABG: Stable, no acute ischemic changes. Troponin is negative. Continue aspirin, statins, Plavix, metoprolol, hold lisinopril. #7 COPD: Pulse ox is maintained on room air. Chest x-ray reported no acute cardiopulmonary pathology. #8 hyperlipidemia: Continue statins. 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 #10 DVT prophylaxis: Subcu Lovenox. Discharge medication reconciliation done. Discharge follow-up instructions completed. Discharge process discussed with the patient and all questions were answered to patient's satisfaction. Total time spent, exact 35 minutes on discharge meds reconciliation, examination, coordination of care with nurses and ancillary staff, review of imaging and blood test and discussion with the patient on follow-up instructions Patient Problems: Active and Suspected Problems Acute renal failure (Acute) Generalized weakness (Acute) Unable to perform basic transfer without assistance (Acute) Physical debility (Acute) Acute kidney injury (Acute) Intertriginous candidiasis (Acute) Objective: No fever or chills since hospital admission. No tachycardia. Blood pressure elevated as antihypertensive medications, HCTZ and lisinopril held secondary to acute kidney injury. On physical exam General: Alert, Oriented x3, Cooperative HEENT: Atraumatic, PERRLA, EOMI, Normocephalic Neck: Supple, No JVD, Negative Carotid Bruits Lungs: Clear to auscultation, No rhonchi, No wheeze, No rales, Diminished Cardiovascular: Regular rate, Regular Rhythm, Normal S1, Normal S2, No murmurs Abdomen: Bowel Sounds Present, Soft, Non Tender, Non-Distended Extremities: Capillary Refill Less than 3 Seconds, Edema Skin: Ulcer/ Wound - Rash present on bilateral groin region. Stage II left ischium/sacral decubitus ulcer, 4 x 1 x 1 cm. No evidence of drainage or active infection. Grayish discoloration of lower leg suggestive of venous stasis Musculoskeletal: No Tenderness to Palpation of Joints or Extremities, Muscle Wasting Neurological: Cranial nerves II-XII grossly intact, - - Bilateral lower legs weakness Psych/Mental Status: Normal Affect, Appropriate - Physical Exam Vitals/I&O's: Vital Signs Temp Pulse Resp BP Pulse Ox 98.2 F 87 18 152/91 H 97 03/11/20 02:48 03/11/20 02:48 03/11/20 02:48 03/11/20 02:48 03/11/20 02:48 Oxygen Flow Rate (L/min) 1 Oxygen Delivery Method Room Air Weight: 275 lb Body Mass Index (BMI) 47.2 Finger Stick Blood Glucose 111 Intake and Output for Last 24 Hours 03/09/20 03/10/20 03/11/20 23:59 23:59 23:59 Intake Total 3946.67 / 4446.67 4700.00 / 4700.00 425 / 425 Output Total 2550 / 3410 4290 / 4290 325 / 325 Balance 1396.67 / 1036.67 410.00 / 410.00 100 / 100 Microbiology Past 72 Hours 03/07/20 17:30 Urine, Clean Catch Urine Culture - Final Pseudomonas aeroginosa Laboratory Results 03/10/20 11:43: POC Glucose 169 H 03/10/20 16:06: POC Glucose 171 H 03/11/20 05:20: WBC 5.0, RBC 2.89 L, Hgb 7.9 L, Hct 25.8 L, MCV 89.3 D, MCH 27.3, MCHC 30.6 L D, RDW Std Deviation 46.2 H, RDW Coeff of Ash 14.3, Plt Count 196, MPV 10.4, Immature Gran % (Auto) 0.400, Neut % (Auto) 60.3, Lymph % (Auto) 22.6, Elbert % (Auto) 10.1 H, Eos % (Auto) 6.2 H, Baso % (Auto) 0.4, Absolute Neuts (auto) 3.0, Absolute Lymphs (auto) 1.14, Nucleated RBC % 0 03/11/20 05:20: Sodium 137, Potassium 4.2, Chloride 107, Carbon Dioxide 24.0, Anion Gap 6, BUN 21 H, Creatinine 0.67, Estim Creat Clear Calc 72.29, Est GFR (MDRD) Af Amer 113, Est GFR (MDRD) Non-Af 93, BUN/Creatinine Ratio 31.2 H, Glucose 231 H, Calcium 8.6 03/11/20 06:30: POC Glucose 226 H Current Medications Acetaminophen (Tylenol) 650 mg PO Q6H PRN PRN PRN Reason: Pain Score 1-10/Temp > 100.7 F Albuterol Sulfate (Ventolin Aerosols) 2.5 mg INHALATION Q4H PRN PRN PRN Reason: Shortness of breath, wheezing Last Admin: 03/08/20 04:22 Dose: 2.5 mg Documented by: Amitriptyline HCl (Elavil) 50 mg PO QHS [facility] Last Admin: 03/10/20 23:17 Dose: 50 mg Documented by: Atorvastatin Calcium (Lipitor) 80 mg PO QHS [facility] Last Admin: 03/10/20 23:17 Dose: 80 mg Documented by: Dextrose (D50w Syringe) 0 gm IV X1 PRN; Protocol PRN Reason: Hypoglycemia Diphenoxylate HCl/Atropine (Lomotil) 1 tablet PO 4X/DAY PRN PRN PRN Reason: Diarrhea Duloxetine HCl (Cymbalta) 60 mg PO DAILY [facility] Ferrous Sulfate (Ferrous Sulfate) 325 mg PO DAILY@0800 [facility] Last Admin: 03/10/20 09:28 Dose: 325 mg Documented by: Fluconazole (Diflucan) 200 mg PO DAILY [facility] Last Admin: 03/10/20 09:29 Dose: 200 mg Documented by: Gabapentin (Neurontin) 800 mg PO TIDCM [facility] Last Admin: 03/10/20 17:25 Dose: 800 mg Documented by: Glucagon () 1 mg IM .X1 PRN PRN Reason: Hypoglycemia Hydrochlorothiazide (Hctz) 12.5 mg PO DAILY [facility] Sodium Chloride () 250 mls @ 15 mls/hr IV .[id number] PRN PRN Reason: Saline Flush Sodium Chloride () 250 mls @ 15 mls/hr IV .[id number] PRN PRN Reason: Additional IVPB Infusion Iron Sucrose 200 mg/ Sodium (Chloride) 110 mls @ 220 mls/hr IV X1 ONE Stop: 03/11/20 09:23 Insulin Glargine (Lantus (Bkc)) 68 units SC QHS [facility] Last Admin: 03/10/20 23:14 Dose: 68 units Documented by: Insulin Human Lispro (Humalog Kwikpen (Bkc)) 0 unit SC ACHS [facility]; Protocol Last Admin: 03/11/20 06:32 Dose: 2 units Documented by: Magnesium Hydroxide (Milk Of Magnesia) 30 ml PO DAILY [facility] Last Admin: 03/10/20 10:19 Dose: Not Given Documented by: Metoprolol Tartrate (Lopressor (Beta [place])) 25 mg PO BID [facility] Last Admin: 03/10/20 23:21 Dose: 25 mg Documented by: Nutritional Formula (Milo - Rusk Flavor) 1 packet PO BIDCM [facility] Last Admin: 03/10/20 17:25 Dose: Not Given Documented by: Nutritional Formula (Lactose Free) (Glucerna Shake) 120 ml PO 4X/DAY [facility] Last Admin: 03/10/20 23:11 Dose: 120 ml Documented by: Nystatin (Mycostatin Powder) 1 applic TOPICAL TID [facility]; Protocol Last Admin: 03/11/20 06:30 Dose: 1 applicatio Documented by: Oxycodone HCl (Oxyir) 5 mg PO Q6H PRN PRN PRN Reason: Pain Score 6-10/10 Last Admin: 03/10/20 23:33 Dose: 5 mg Documented by: Pantoprazole Sodium (Protonix) 20 mg PO DAILY [facility] Last Admin: 03/10/20 09:29 Dose: 20 mg Documented by: Senna/Docusate Sodium (Senokot-S, Gina-Colace) 2 tablet PO BID PRN PRN PRN Reason: Constipation Sodium Chloride () 10 - 40 ml IV UD PRN PRN Reason: SALINE FLUSH Tramadol HCl (Ultram) 50 mg PO Q6H PRN PRN PRN Reason: Pain Score 4-5/10 Last Admin: 03/08/20 16:07 Dose: 50 mg Documented by: Zolpidem Tartrate (Ambien (Generic)) 5 mg PO QHS PRN PRN PRN Reason: INSOMNIA Home Medications: Medications to take at Discharge Atorvastatin Calcium [Lipitor] 80 mg PO QHS 03/24/15 Gabapentin [Neurontin] 800 mg PO TIDCM 03/24/15 Metoprolol Tartrate [Lopressor (beta dakota)] 25 mg PO BID 03/24/15 Omeprazole [Prilosec] 20 mg PO DAILY 03/24/15 Insulin Glargine,Hum.rec.anlog [Lantus] 68 unit SQ QHS 07/20/15 Albuterol Aerosols [Ventolin Aerosols] 2.5 mg INHALATION Q6HWA.RT PRN 09/10/16 Diphenoxylate HCl/Atropine [Lomotil 2.5-0.025 mg Tablet] 1 each PO 4X/DAY PRN PRN 12/25/17 traMADol [Ultram] 50 mg PO Q6H PRN PRN 12/25/17 Amitriptyline HCl 50 mg PO QHS 02/18/20 Duloxetine Hcl [Cymbalta] 60 mg PO DAILY 02/18/20 Ferrous Sulfate 325 mg PO DAILY@0800 02/18/20 Hydrochlorothiazide 12.5 mg PO DAILY 02/18/20 Lidocaine [Lidoderm Patch] 1 patch TP DAILY 02/18/20 Nystatin Powder [Mycostatin Powder] 1 applic TOPICAL TID #2 bottle 02/20/20 Aspirin [Aspirin, Baby] 81 mg PO DAILY@0800 #0 03/11/20 Clopidogrel Bisulfate [Plavix] 75 mg PO DAILY #0 03/11/20 Fluconazole [Diflucan] 200 mg PO DAILY tab 03/11/20 Insulin Lispro [Humalog KwikPen] See Protocol SUBCUT ACHS insuln.pen 03/11/20 Lisinopril [Zestril] 5 mg PO DAILY #0 03/11/20 Metformin HCl 500 mg PO BIDCM #0 03/11/20 Nystatin Powder [Mycostatin Powder] 1 applic TOPICAL TID bottle 03/11/20 Primary Care Physician: Gera Snider III, MD [Primary Care Provider] - Please follow up with your Primary Care Physician in: in 1-2 week Please Follow Up With: Ramya Ferrara MD When: in 1-2 week for [facility] Medical Necessity - Tobacco Use Smoking Status: Light Smoker (<10/day) Tobacco Use: Cigarettes Meaningful Use Info Meaningful Use Diagnoses (Choose all that apply): None applicable Inpatient E&M: [id number] [facility]
[2020-03-11] MEDS: oxyCODONE 5 MG Tablet PO ×2 (10:11→15:51)
[2020-03-11] MEDS: Fluconazole 100 MG Tablet 200 MG PO (10:11)
[2020-03-11] MEDS: Gabapentin 800 MG Tablet PO ×2 (10:12→12:25)
[2020-03-11] MEDS: Ferrous Sulfate 325 MG Tablet PO (10:12)
[2020-03-11] MEDS: Pantoprazole Sodium 20 MG Tablet PO (10:12)
[2020-03-11 10:13] VITALS: PULSE 78
[2020-03-11] MEDS: Metoprolol Tartrate 25 MG Tablet PO (10:13)
[2020-03-11] MEDS: DULoxetine Hcl 60 MG Capsule PO (10:17)
[2020-03-11] MEDS: hydroCHLOROthiazide 12.5mg 12.5 MG PO (10:19)
[2020-03-11] MEDS: Glucerna Shake 120 ML LIQUID PO (10:19)
[2020-03-11 10:25] VITALS: BP 170/82; PULSE 78; RESP 18; TEMP 36.6; O2SAT 96
--- NOTE | 2020-03-11 10:41 | CASEMGMT ---
Addendum entered by Kassie Larios 03/11/20 16:06: SW did place a call to [employer] and left message for SW regarding pt's family situation and history of depression. Addendum entered by Kassie Larios 03/11/20 15:08: SW completed convalescent 7000 in HENS. SW faxed completed paperwork to [employer] including transfer to extended care facility, signed medication list, any scripts, HENS, and COVID transfer tool. Original in SNF folder and copy on pt's chart. BRANDON arranged transportation through [facility] via cot for 5:00pm as this is the earliest [facility] can transport. Transportation form completed and placed on SNF folder and copy on pt's chart. SW in to speak with pt. SW updated pt on approval for SNF, discharge today, and transportation time. SW asked pt how she is doing today. Pt states that she feels a little better today but about the same. SW asked pt if she spoke wit her son last night, Pt states that she did but she didn't really talk much to him last night. SW asked pt if she will be talking to him about the resources that this worker provided and pt states she will do so. SW offered to call pt's son to give update on discharge and transportation time and pt denied. Pt states she will be calling her son tommy. Pt denied additional needs or concerns at this time. RN updated on transportation time. SW placed a call to Magali at [employer] and updated her on transportation time. BRANDON placed a call to Melva at [facility] and left message regarding discharge plan. BRANDON placed a call to Leia Sepulveda at [facility] and left message regarding discharge. BRANDON faxed discharge paperwork to Leia Sepulveda. Plan: [facility] today with [facility] transporting via cot at 5:00pm MAICOL Saenz Original Note: Social Work Note SW received message from Magali at [employer] stating pre-cert has been obtained. BRANDON updated physician. BRANDON spoke with RN, pt is able to be transported via cot. BRANDON will fax completed discharge paperwork once available. Plan: [facility] skilled today MAICOL Saenz
[2020-03-11 13:01] LABS: Bedside Glucose 289 mg/dL (70-110)
[2020-03-11 14:40] VITALS: BP 160/65; PULSE 74; RESP 18; TEMP 36.9; O2SAT 97
[2020-03-11 15:55] LABS: Bedside Glucose 276 mg/dL (70-110)
--- NOTE | 2020-03-11 16:07 | NURSING ---
report called to ANUJA Baires RN.
--- NOTE | 2020-03-11 16:30 | CASEMGMT ---
Social Work Note SW back in to speak to pt regarding mental health and pt's son comment that was relayed yesterday. Per previous notes, yesterday pt mentioned that if her son were to become homeless he would kill himself. SW asked pt how her son is handling pt going to SNF now. Pt states he is handling it well, the same that he handled it the last time I went to SNF which was for 5 months. Pt states that her son has friends that he is hanging out with and he now has the tv to himself. SW spoke with pt again regarding the comment that she informed this worker yesterday that if her son were to become homeless he was going to harm himself. Pt states I don't think he meant it. Pt states he's made comments like that before. Pt states that her son has never had a plan or attempted suicide before and again states he didn't mean it. SW asked pt if her son is linked up with any mental health services and pt denied. Pt states he won't go. SW asked pt about any depression or other mental health that her son has. Pt states that her son does have depression. Pt again states her son has never made any attempt or plan to actually harm himself. Pt states that she had a suicide attempt 30+ years ago. SW asked pt to elaborate. Pt states that 30+ years ago she was dating a man and they were going to get and then the night before the wedding, he called off the marriage. 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 Pt states though again that that was 30+ years ago and she's never had another attempt or plan again. Pt denied any current suicidal thoughts/plans/ideations. SW asked pt about someone checking in with her son while she is at [facility]. Pt states I have a good neighbor and sister that will check in with him. Pt states my sister knows about his depression and will check in with him. Pt states my son has two cats that he won't leave. Pt states I don't have any concern with his safety. SW informed pt that this worker could have someone check in with her son while she is at [facility] and pt denied. BRANDON did place a call to SW at [facility] and left message regarding pt's family stress and the SW will need to follow up with pt and will may need to follow up with pt's son if pt is at SN[facility]. Pt is discharging to [facility] today for rehabilitation. Pt is agreeable to SNF even though her son had made the comment of harming himself if he were to end up homeless. Pt stated she had no concerns about her son's safety. Pt was able to identify supporting people her son has and people that are able to check in with him. Pt stated that she has no concerns with her son safety and doesn't think that her son will harm himself. Pt states that her son has never attempted suicide and never has had a plan. SW offered to have someone check in with her son and pt denied. SW at [facility] is aware of pt's situation. Kassie Larios SAND MILLER, ADMISSIONS EVALUATOR
[2020-03-11 23:06] LABS: Bedside Glucose 210 mg/dL (70-110)
== END 2020-03-11 17:05 | disposition skilled nursing facility (03) | DRG 682 ==
LOC: ED 18:46 → MS3 03-08 03:52
PROVIDERS: Admitting Provider Hospitalist; Emergency Provider Emergency Medicine; PCP Family Medicine; Visit Provider Internal Medicine
DX: N17.9 Acute kidney failure, unspecified (principal); R53.2 Functional quadriplegia; Z68.42 Body mass index [BMI] 45.0-49.9, adult; B37.2 Candidiasis of skin and nail; T50.905A Adverse effect of unspecified drugs, medicaments and biological substances, initial encounter; E78.5 Hyperlipidemia, unspecified; I25.10 Atherosclerotic heart disease of native coronary artery without angina pectoris; E11.51 Type 2 diabetes mellitus with diabetic peripheral angiopathy without gangrene; E11.40 Type 2 diabetes mellitus with diabetic neuropathy, unspecified; M19.90 Unspecified osteoarthritis, unspecified site; J44.9 Chronic obstructive pulmonary disease, unspecified; E66.01 Morbid (severe) obesity due to excess calories; L89.212 Pressure ulcer of right hip, stage 2; L89.150 Pressure ulcer of sacral region, unstageable; F32.9 Major depressive disorder, single episode, unspecified; I10 Essential (primary) hypertension; L30.4 Erythema intertrigo; F17.210 Nicotine dependence, cigarettes, uncomplicated; Z87.440 Personal history of urinary (tract) infections; Z86.19 Personal history of other infectious and parasitic diseases
CPT/HCPCS: 36415; 71045; 76770; 80048; 81001; 82962; 84484; 85025; 87077; 87086; 87088; 87186; 93005; 94640; 97162; 97166; 97802; 99251; 99285; J1756; J7030; A4216; G0463; J0744

== ENCOUNTER 2020-05-06 01:35 | Inpatient (IN) | payer MEDICARE, MEDICAID, SELFPAY ==
[2020-03-07 20:05] VITALS: BMI 47.2
[2020-05-06] VITALS (15 sets, daily range): BP systolic 112–173; BP diastolic 44–91; PULSE 85–105; RESP 16–18; TEMP 36.4–36.8; O2SAT 92–97; BMI 45.8
--- NOTE | 2020-05-06 02:46 | HP.PCM_ITS ---
History of Present Illness Date of Admission: 05/06/20 Chief Complaint: altered mental status The patient is a 65 year old F with an extensive past medical history as outlined who was admitted as a direct transfer from [facility] on 05/06/2020. Patient was found down in her detention facility with left- sided weakness and expressive aphasia. It was unclear her last known well and it was unclear how long she had been like that. Due to concerns of stroke, [facility] with CT of the brain done was negative for any acute intracranial process. CT of the brain done showed nonocclusive 50% stenosis of the right carotid artery and had plaque at the carotid bulb and origin of the internal carotid arteries as well as had plaque at the origin of the right CCA but negative for any occlusion or bleed. She was transferred to [facility] for further evaluation. Patient was seen in her bed after transfer. Patient was very confused and tearful. She had difficulty finding words though she was able to answer a few questions with yes or no answers. She denied any headache, blurred vision, weakness, chest pain, nausea vomiting or diarrhea. She is unable to collect exactly what happened in the custodial and how, she ended up in the hospital. On admission, vitals showed temperature of 98 Fahrenheit with blood pressure 165/50, pulse rate of 19 respiratory rate of 18. She was saturating at 96% on room air. NIH stroke scale was approximately 7 though it was difficult for patient to be most instructions. She has been admitted to be managed for expressive aphasia due to probable stroke. [] Past Medical History Past Medical History (Chronic Problems): Chronic Problems Stage II pressure ulcer of right buttock (Chronic) Stage II pressure ulcer of left buttock (Chronic) Obesity, morbid (Chronic) Decubitus ulcer of coccygeal region, stage 3 (Chronic) Tobacco abuse (Chronic) COPD (chronic obstructive pulmonary disease) (Chronic) Depression (Chronic) Dyslipidemia (Chronic) Pressure ulcer of left heel, stage 2 (Chronic) Stage III pressure ulcer of sacral region (Chronic) Diabetic neuropathy (Chronic) Peripheral vascular disease in diabetes mellitus (Chronic) Diabetes mellitus type II (Chronic) Coronary artery disease (Chronic) Status post CABG Cancer of vulva (Chronic) Status post radical vulvectomy and radiotherapy in January 2014 Allergies povidone-iodine [From Betadine] Allergy (Verified 03/07/20 15:27) Itching topical betadine prednisone Allergy (Verified 03/07/20 15:27) tiny mouth ulcers Home Medications: Ambulatory Orders Medication Instructions Recorded Atorvastatin Calcium [Lipitor] 80 mg PO QHS 03/24/15 Gabapentin [Neurontin] 800 mg PO TIDCM 03/24/15 Metoprolol Tartrate [Lopressor 25 mg PO BID 03/24/15 (beta liza)] Omeprazole [Prilosec] 20 mg PO DAILY 03/24/15 Insulin Glargine,Hum.rec.anlog 68 unit SQ QHS 07/20/15 [Lantus] Albuterol Aerosols [Ventolin 2.5 mg INHALATION Q6HWA.RT PRN 09/10/16 Aerosols] Diphenoxylate HCl/Atropine 1 each PO 4X/DAY PRN PRN 12/25/17 [Lomotil 2.5-0.025 mg Tablet] traMADol [Ultram] 50 mg PO Q6H PRN PRN 12/25/17 Amitriptyline HCl 50 mg PO QHS 02/18/20 Duloxetine Hcl [Cymbalta] 60 mg PO DAILY 02/18/20 Ferrous Sulfate 325 mg PO DAILY@0800 02/18/20 Hydrochlorothiazide 12.5 mg PO DAILY 02/18/20 Lidocaine [Lidoderm Patch] 1 patch TP DAILY 02/18/20 Nystatin Powder [Mycostatin Powder] 1 applic TOPICAL TID #2 bottle 02/20/20 Aspirin [Aspirin, Baby] 81 mg PO DAILY@0800 #0 03/11/20 Clopidogrel Bisulfate [Plavix] 75 mg PO DAILY #0 03/11/20 Fluconazole [Diflucan] 200 mg PO DAILY tab 03/11/20 Insulin Lispro [Humalog KwikPen] See Protocol SUBCUT ACHS 03/11/20 insuln.pen Lisinopril [Zestril] 5 mg PO DAILY #0 03/11/20 Metformin HCl 500 mg PO BIDCM #0 03/11/20 Nystatin Powder [Mycostatin Powder] 1 applic TOPICAL TID bottle 03/11/20 Surgical History: cataract, cholecystectomy, coronary bypass surgery, tonsillectomy, - - Incision and drainage repeatedly of perirectal abscesses. 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, right hip surgery Psychiatric History: Depression HOSPITAL ADMINISTRATIVE ASSISTANT History: No pertinent HOSPITAL ADMINISTRATIVE ASSISTANT history Lives: Prison Smoking Status: Light Smoker (<10/day) Tobacco Use: Cigarettes Alcohol: None Drugs: None - *Family History Maternal History Items: Cancer, Diabetes, Hypertension, Pulmonary Disease Paternal History Items: Cancer, Hypertension, Pulmonary Disease, No pertinent history Review of Systems Constitutional: Denies: Fever, Malaise Eyes: Denies: Blurred vision HEENT: Denies: Head Aches, Sinus Congestion, Sinus Drainage Cardiovascular: Denies: Chest Pain, Paroxysmal Noc. Dyspnea Respiratory: Denies: Cough, Shortness of Breath, Shortness of breath at rest, Shortness of breath upon exertion Gastrointestinal: Denies: Abdominal Pain, Nausea, Vomiting Genitourinary: Denies: Dysuria Musculoskeletal: Reports: Joint Pain, - - complained of left hip pain. Denies: Joint Tenderness Skin: Denies: Rash, Wounds Neurological: Denies: Numbness, Tingling, Focal weakness Psychiatric: Denies: Anxiety, Depression, Homicidal Ideations, Suicidal Ideations Hematologic/ Lymphatic: Denies: Easy Bruising, Easy Bleeding VTE Information - Inpt Only VTE Present on Admission: No VTE Pharm Prophylaxis ordered?: Yes - Physical Exam Vitals/I&O's: Vital Signs Temp Pulse Resp BP Pulse Ox 98.0 F 90 18 165/50 H 96 05/06/20 01:53 05/06/20 01:53 05/06/20 01:53 05/06/20 01:53 05/06/20 01:53 Oxygen Delivery Method Room Air Body Mass Index (BMI) 47.2 Finger Stick Blood Glucose 111 General: Alert, Confused, - - super morbid obesity HEENT: Atraumatic, PERRLA, EOMI, Normocephalic Oral: Dry Mucosa Neck: Supple, No JVD, Negative Carotid Bruits Lungs: Clear to auscultation, Normal air movement Cardiovascular: Regular rate, Regular Rhythm, Normal S1, Normal S2, No murmurs Abdomen: Bowel Sounds Present, Soft, Non Tender, Non-Distended, No Hepato- splenomegaly, Obese Extremities: No clubbing, No cyanosis, Capillary Refill Less than 3 Seconds, - - mild 1+ LE edema Skin: No rashes, No breakdown Musculoskeletal: No Tenderness to Palpation of Joints or Extremities Lymphatic: No Cervical, Supraclavicular, or Inguinal Adenopathy Neurological: Cranial nerves II-XII grossly intact, Motor Exam 5/5 strength throughout, - - has expressive aphasia and dysarthria, NIHSS-7 Psych/Mental Status: Anxious Current Medications Sodium Chloride () 250 mls @ 15 mls/hr IV .[id number] PRN PRN Reason: Saline Flush Sodium Chloride () 250 mls @ 15 mls/hr IV .[id number] PRN PRN Reason: Additional IVPB Infusion Sodium Chloride () 10 - 40 ml IV UD PRN PRN Reason: SALINE FLUSH Assessment/Plan All Active Problems Acute renal failure (Acute) Generalized weakness (Acute) Unable to perform basic transfer without assistance (Acute) Physical debility (Acute) Acute kidney injury (Acute) Intertriginous candidiasis (Acute) 65 y/o admitted after being found with left sided weakness and expressive aphasia in her SNF 1. Left sided weakness and expressive aphasia, to r/o CVA * Admit to PCU with telemetry. * PT OT consult, fall precautions. * CT of the brain was negative for any acute intracranial process but CTA of the head and neck showed hard plaque at the carotid bulb and origin of the internal carotid arteries worse on the right than the left with approximately 50% stenosis and had plaque at the origin of the right CCA; negative for occlusion or bleed. * on aspirin, plavix and statin. will continue. * To get MRI of the brain tomorrow. 2D echo. to get neurology consult once MRI results are obtained * Check A1c. PT OT consults. Fall precautions. * 2. History of CAD: On aspirin and statin as well as Plavix. 3. Anemia: * Hemoglobin was 7.7 which according to referral facility, is normal for her. * Hb here is 7.3. Will transfuse one unit of PRBC o/a of patient's history of CAD to bring Hb up to ~ 8 * check stool for occult blood and iron panel; baseline Hb seems to be 8-9 4. Type 2 diabetes mellitus: on Lantus 68 units nightly. Insulin sliding scale. Accu-Cheks AC at bedtime. Also on metformin. 5. Benign essential hypertension: On lisinopril and metoprolol. Will continue. 6. Sacral decubitus ulcer: Present on admission. This is stage III-IV ulcer and was packed. Consult wound care. 7. Super morbid obesity: Complicates acute care, expected recovery and prognosis. DVT prophylaxis: SCDs. No anticoagulation o/a of anemia. OBSV E&M: [id number] Initial observation care L2
[2020-05-06 03:55] LABS: Hematocrit 24.4 % (37-47); Hemoglobin 7.3 g/dL (12.0-15.0); Mean Corp Hgb Conc 29.9 g/dL (32-36); Mean Corpuscular Hgb 25.3 pg (27.0-32.0); Mean Corpuscular Volume 84.7 fL (81-99); Mean Platelet Vol. 8.8 fl (6.2-12.0); Platelet Count 363 K/mm3 (150-450); RBC Distribution Width CV 15.6 % (11.6-14.6); RBC Distribution Width SD 47.7 fl (35.1-43.9); Red Blood Count 2.88 M/mm3 (4.2-5.4); White Blood Count 11.3 K/mm3 (4.4-11.0)
[2020-05-06 04:15] LABS: Anion Gap 2 (5-15); BUN 30 mg/dL (7-18); BUN/Creat Ratio 42.1 RATIO (10-20); Calcium,Total 8.6 mg/dL (8.5-10.1); Chloride 101 mmol/L (98-107); Cholesterol 56 mg/dL (200); Creatinine, Serum 0.71 mg/dL (0.55-1.02); EST Glomerular Filtration Rate 87 mL/min (>60); Est Glom Filt Rate - Afr Amer 106 mL/min (>60); Glucose 153 mg/dL (74-106); High Density Lipoprotein 20 mg/dL; Potassium 4.3 mmol/L (3.5-5.1); Sodium Level 131 mmol/L (136-145); Triglycerides 69 mg/dL; Very Low Density Lipoprotein 14 mg/dL (5-40)
--- NOTE | 2020-05-06 05:00 | ECHOCS_ITS ---
Reason For Study: TIA/CVA Procedure This was a 2D Doppler, Color Flow transthoracic echocardiogram. The study was technically difficult. Contrast injection was performed. Exam performed portable in patient room. Left Ventricle Normal LV size. The estimated ejection fraction is 75 %. Unable to assess diastolic dysfunction. No regional wall motion abnormalities noted. Right Ventricle Normal RV size. Normal systolic function. Atria The left atrium is mildly enlarged. Normal right atrium. No doppler evidence for ASD. Mitral Valve There is no mitral valve stenosis. No mitral valve insufficiency. Tricuspid Valve There is no tricuspid stenosis. No tricuspid valve insufficiency. Unable to estimate RV systolic pressure due to inadequate jet, pulmonary artery pressure probably normal. Aortic Valve Trisinus/trileaflet aortic valve. Moderate diffuse aortic valve thickening. There is no aortic stenosis. No aortic valve insufficiency. Pulmonic Valve There is no pulmonic valvular stenosis. No pulmonic valve insufficiency. Great Vessels Normal aortic root. Pericardium/Pleural No pericardial effusion. Medication Diluted definity 3.0ml given slow IV push to enhance endocardial definition. Previous negative bubble study. MMode/2D Measurements & Calculations LVIDd: 4.5 cm IVSd: 1.0 cm LVOT diam: 2.0 cm LVIDs: 3.1 cm LVPWd: 1.1 cm FS: 30.3 % LVOT area: 3.1 cm2 Ao root diam: 2.3 cm LAV(MOD-bp): 88.3 ml LVAd ap4: 38.4 cm2 LAV(MOD-bp) Indexed: 39.0 ml/m2 EDV(MOD-sp4): 142.7 ml LAV(MOD-sp2): 109.1 ml EDV(sp4-el): 147.9 ml LAV(MOD-sp4): 71.6 ml LVAs ap4: 23.0 cm2 ESV(MOD-sp4): 58.7 ml ESV(sp4-el): 62.6 ml EF(MOD-sp4): 58.9 % EF(sp4-el): 57.7 % SV(MOD-sp4): 84.0 ml SV(sp4-el): 85.3 ml LA A4 area: 24.2 cm2 LA dimension(2D): 4.1 cm RA A4 area: 19.6 cm2 Time Measurements MV dec time: 0.23 sec Doppler Measurements & Calculations MV E max dhruv: 130.1 cm/sec Lat Peak E' Dhruv: 5.8 cm/sec Med Peak E' Dhruv: 5.7 cm/sec MV A max dhruv: 158.7 cm/sec E/E' lat: 22.4 E/E' med: 22.9 MV E/A: 0.82 MV V2 max: 158.0 cm/sec Ao V2 max: 147.1 cm/sec LV V1 max: 99.2 cm/sec MV max P.0 mmHg Ao max P.7 mmHg LV V1 max P.9 mmHg MV V2 mean: 107.3 cm/sec Ao V2 mean: 113.8 cm/sec LV V1 mean P.3 mmHg MV mean P.9 mmHg Ao mean P.5 mmHg LV V1 mean: 72.3 cm/sec MV V2 VTI: 39.2 cm Ao V2 VTI: 30.7 cm LV V1 VTI: 24.6 cm MVA(VTI): 2.0 cm2 TANO(I,D): 2.5 cm2 TANO(V,D): 2.1 cm2 SV(LVOT): 77.3 ml TR max dhruv: 266.4 cm/sec MV P1/2t-pr_phl: 101.2 msec TR max P.4 mmHg Interpretation Summary Unable to assess diastolic dysfunction. The estimated ejection fraction is 75 %. The left atrium is mildly enlarged. Moderate diffuse aortic valve thickening. The study was technically difficult. Contrast injection was performed. Ordering Physician: Lorri Mulligan Referring Physician: FELICIANO SCHMITZ Performed By: Wendy Becker, SASKIACS, RVT
[2020-05-06 07:10] LABS: Bedside Glucose 155 mg/dL (70-110)
[2020-05-06 07:17] LABS: Ferritin 387 ng/mL (8-252); Iron 21 ug/dL (50-170); Iron Binding Capacity,Total 188 ug/dL (250-450); PERCENT IRON SATURATION 11.2 % (15.0-55.0)
[2020-05-06] MEDS: traMADol 50 MG Tablet PO (07:28)
[2020-05-06] MEDS: Insulin Lispro 100 UNIT/ML INSULN.PEN SC (08:28)
--- NOTE | 2020-05-06 08:29 | NURSING ---
This RN offered to call pt's family. Pt declined stating she would like to call herself.
[2020-05-06] MEDS: LORazepam 2 MG/ML Syringe 1 MG IV ×2 (11:15→11:45)
--- NOTE | 2020-05-06 11:33 | NURSING ---
Pt currently off unit for MRI. Will assess wounds later today.
[2020-05-06 11:56] LABS: Hemoglobin A1c 7.1 % (3.8-5.6)
[2020-05-06 12:07] LABS: Mucous, Urine 0 SEEN /hpf (<or=2+)
[2020-05-06 12:11] LABS: Color, Urine Yellow (Yellow); Glucose, Dipstick Normal (Normal); Ketone-Dipstick Negative (Negative); Leukocyte Esterase-Dipstick 500 /ul (Negative); Nitrite-Dipstick Negative (Negative); Occult Blood-Urine 25 /ul (Negative); Protein-Dipstick 30 mg/dl (Negative); Urine Bilirubin Dipstick Negative (Negative); Urine Clarity Clear (Clear); Urine Urobilinogen Normal (Normal)
[2020-05-06 12:26] LABS: Squamous Epithelial Cells - UA 25-50 SEEN /hpf (5-10); White Blood Cells 50-100 SEEN /hpf (0-5)
[2020-05-06 12:28] LABS: Bacteria 2+ /hpf (None Seen); Red Blood Cells-Urine 0-5 SEEN /hpf (0-5)
--- NOTE | 2020-05-06 13:16 | NURSING ---
Dr. Lopez came in to see pt at bedside. Pt is confused and agitated.
--- NOTE | 2020-05-06 13:33 | NURSING ---
Pt very uncooperative at this time, hitting at staff and crying. pt will not let this nurse assess buttocks at this time. was able to assess the left foot wounds. all area stable with dry eschar. no sign of infection to the left foot. will leave dry and GILBERT. see wound photos.
--- NOTE | 2020-05-06 14:50 | NURSING ---
Notified Dr Lopez of foul odor to sacral wound. orders received for Dakins BID. nursing to attempt to get cultures with next dressing change if pt is more cooperative. pt still swinging at staff. was able to place a NS wet to dry dressing at this time. Dakins not received from pharmacy yet. will monitor wounds. see photos.
--- NOTE | 2020-05-06 14:59 | NURSING ---
wound photo: left foot
--- NOTE | 2020-05-06 15:00 | NURSING ---
wound photo: sacrum
--- NOTE | 2020-05-06 15:20 | PN_ITS ---
Objective: Patient was direct transfer from [facility] in [facility]. Patient was transferred here for left-sided weakness and expressive aphasia. CT brain was negative for acute intracranial process. CTA shows nonocclusive 50% stenosis of right carotid and plaque at carotid bulb and origin of right CCA but no hemodynamically occlusion or bleed. Patient was taken for MRI in the morning but she was very agitated and restless and was given Ativan 2 mg she got more agitated and therefore did not had MRI. When I saw her patient is confused, disoriented, agitated and restless and did not allow for exam. Patient also has ulcer over sacral decubitus region along with vulvar cancer. Discussed with the wound nurse Vitals/I&O's: Vital Signs Temp Pulse Resp BP Pulse Ox 97.5 F L 94 18 120/78 92 05/06/20 14:00 05/06/20 14:00 05/06/20 14:00 05/06/20 14:00 05/06/20 14:00 Oxygen Flow Rate (L/min) 97 Oxygen Delivery Method Room Air Weight: 275 lb 12.772 oz Body Mass Index (BMI) 45.8 Finger Stick Blood Glucose 111 Intake and Output for Last 24 Hours 05/04/20 05/05/20 05/06/20 23:59 23:59 23:59 Intake Total 200 / 200 Output Total 300 / 300 Balance -100 / -100 Laboratory Results 05/06/20 03:46: WBC 11.3 H, RBC 2.88 L, Hgb 7.3 L, Hct 24.4 L, MCV 84.7, MCH 25.3 L, MCHC 29.9 L, RDW Std Deviation 47.7 H, RDW Coeff of Ash 15.6 H, Plt Count 363, MPV 8.8 05/06/20 03:46: Sodium 131 L, Potassium 4.3, Chloride 101, Carbon Dioxide 28.0, Anion Gap 2 L, BUN 30 H, Creatinine 0.71, Est GFR (MDRD) Af Amer 106, Est GFR (MDRD) Non-Af 87, BUN/Creatinine Ratio 42.1 H, Glucose 153 H, Calcium 8.6, Triglycerides 69, Cholesterol 56, LDL Cholesterol 22, VLDL Cholesterol 14, HDL Cholesterol 20 L 05/06/20 03:46: Troponin I < 0.015 05/06/20 03:46: Hemoglobin A1c 7.1 H 05/06/20 06:45: Iron 21 L, TIBC 188 L, Iron Saturation 11.2 L, Ferritin 387 H, Troponin I < 0.015 05/06/20 06:45: Blood Type O POSITIVE, Antibody Screen NEGATIVE, Crossmatch See Detail 05/06/20 07:05: POC Glucose 155 H 05/06/20 09:48: Troponin I < 0.015 05/06/20 10:45: Urine Color Yellow, Urine Clarity Clear, Urine pH 6.0, Ur Specific Mckenzie 1.010, Urine Protein 30 H, Urine Glucose (UA) Normal, Urine Ketones Negative, Urine Occult Blood 25 H, Urine Nitrite Negative, Urine Bilirubin Negative, Urine Urobilinogen Normal, Ur Leukocyte Esterase 500 H, Urine RBC 0-5 SEEN, Urine WBC 50-100 SEEN, Ur Squamous Epith Cells 25-50 SEEN, Urine Bacteria 2+, Urine Mucus 0 SEEN Current Medications Dextrose (D50w Syringe) 0 gm IV X1 PRN; Protocol PRN Reason: Hypoglycemia Glucagon () 1 mg IM .X1 PRN PRN Reason: Hypoglycemia Sodium Chloride () 250 mls @ 15 mls/hr IV .[id number] PRN PRN Reason: Saline Flush Sodium Chloride () 250 mls @ 15 mls/hr IV .[id number] PRN PRN Reason: Additional IVPB Infusion Sodium Chloride () 250 mls @ 15 mls/hr IV .[id number] PRN PRN Reason: Saline Flush Sodium Chloride () 250 mls @ 15 mls/hr IV .[id number] PRN PRN Reason: Additional IVPB Infusion Insulin Human Lispro (Humalog Kwikpen (Bkc)) 0 unit [facility]; Protocol Last Admin: 05/06/20 13:03 Dose: Not Given Documented by: Labetalol HCl (Trandate) 10 - 20 mg IV Q10M PRN PRN PRN Reason: to maintain BP goals Nitroglycerin (Nitrostat) 0.4 mg SUBLINGUAL Q5M PRN PRN Reason: CARDIAC/CHEST PAIN Nutritional Formula (Milo - Baldwin Flavor) [facility] Ondansetron HCl (Zofran) 4 mg IV Q8H PRN PRN PRN Reason: NAUSEA/VOMITING Sodium Chloride () 10 - 40 ml IV UD PRN PRN Reason: SALINE FLUSH Sodium Hypochlorite (Dakins Solution 0.25% (1/2 Strength)) 1 applic TOPICAL BID CRISTO; Protocol STROKE Vital Signs/Narrative: Vital Signs Temp Pulse Resp BP Pulse Ox 05/06/20 14:00 97.5 F L 94 18 120/78 92 05/06/20 13:00 97.6 F L 88 18 168/78 H 96 05/06/20 12:42 97.6 F L 89 18 171/66 H 97 Medical Necessity - Tobacco Use Smoking Status: Light Smoker (<10/day) Tobacco Use: Cigarettes Assessment/Plan All Active Problems Acute renal failure (Acute) Generalized weakness (Acute) Unable to perform basic transfer without assistance (Acute) Physical debility (Acute) Acute kidney injury (Acute) Intertriginous candidiasis (Acute) She is 65 y/o admitted after being found with left sided weakness and expressive aphasia in her SNF directly admitted from [facility]. 1. Left sided weakness and expressive aphasia, to r/o CVA: Patient is admitted in PCU. Currently confused, agitated and restless. Patient could not have an MRI even after 2 mg of IV Ativan.CT of the brain was negative for any acute intracranial process but CTA of the head and neck showed hard plaque at the carotid bulb and origin of the internal carotid arteries worse on the right than the left with approximately 50% stenosis and had plaque at the origin of the right CCA; negative for occlusion or bleed. On aspirin, Plavix and high intensity statin. Echo shows EF 75% with LA mildly enlarged. No Doppler evidence of ASD. Serial troponins are negative. Lipid profile LDL 22, HDL 20. Triglycerides 69. A1c 7.1. Glucose 153. 2. History of CAD: On aspirin and statin as well as Plavix. 3. Acute anemia on anemia of chronic disease: Iron profile suggestive of anemia of chronic disease, ferritin 387, iron saturation 11.2%. Patient having 1 unit of PRBC transfusion. Stool for occult blood ordered. 4. Type 2 diabetes mellitus: on Lantus 68 units nightly with holding parameters. Insulin sliding scale. Accu-Cheks AC at bedtime. DC metformin. 5. Benign essential hypertension: On lisinopril and metoprolol. Will continue. 6. Sacral decubitus ulcer, left foot, lateral margin: Present on admission. Foul order. Clean with Dakin's twice daily. Discussed with the wound nurse. Stage IV, size 2.5 x 2.4 x 3.2 cm, pressure injury type with yellowish-green moderate amount of drainage. Wound photos reviewed. Patient uncooperative for dressing change and wound culture. 7. Super morbid obesity: Complicates acute care, expected recovery and prognosis. DVT prophylaxis: SCDs. No anticoagulation o/a of anemia.
[2020-05-06 17:46] LABS: Bedside Glucose 79 mg/dL (70-110)
[2020-05-06 20:51] LABS: Hematocrit 28.7 % (37-47)
--- NOTE | 2020-05-06 21:30 | NURSING ---
Attempted to complete NIH, pt refuses to complete, when asked to raise arms or legs she states no Completed as much as able at this time, will try again later. ESTEFANIA Silvestre
[2020-05-06 22:31] LABS: Bedside Glucose 76 mg/dL (70-110)
[2020-05-06] MEDS: Nystatin Powder 15gm Bottle 1 APPLIC TOPICAL (22:32)
[2020-05-06] MEDS: DAKIN'S SOL HALF STRENGTH (=0.25%) 1 APPLIC TOPICAL (22:32)
[2020-05-07] VITALS (14 sets, daily range): BP systolic 121–161; BP diastolic 58–101; PULSE 81–106; RESP 16–18; TEMP 36.3–36.9; O2SAT 94–99; BMI 45.8
[2020-05-07 00:52] LABS: M R Staph aureus DNA By PCR Negative (Negative); Probe Check PASS; Specimen Processing Control PASS; Staph aureus DNA By PCR NEGATIVE (Negative)
[2020-05-07 01:31] LABS: Bedside Glucose 92 mg/dL (70-110)
--- NOTE | 2020-05-07 01:31 | NURSING ---
Attempted to complete pt's NIH at this time. Pt awakens easily, and is talking, however when asked to tell this nurse her name and age, pt replies with ''bite me'' Pt then would not follow any commands or complete any tasks (moving arms/legs) asked of her. Assessed NIH as best as able. Pt's mentation and condition has not appeared to change since beginning of this this shift and VSS. Will continue to monitor. Nirmala, RN
--- NOTE | 2020-05-07 05:37 | NURSING ---
Pt still uncooperative with NIH and answering questions. Nirmala, RN
[2020-05-07] MEDS: Nystatin Powder 15gm Bottle 1 APPLIC TOPICAL ×3 (06:47→22:07)
[2020-05-07 06:48] LABS: Absolute Lymphocyte Count 1.74 X10^3/uL (0.83-4.51); Absolute Neutrophil Count 9.2 X10^3/uL (2.0-7.7); Basophil# 0.04 X10^3/uL; Basophil% 0.3 % (0-1); Eosinophils% 1.6 % (0-5); Hematocrit 30.2 % (37-47); Hemoglobin 9.3 g/dL (12.0-15.0); Lymphocyte # 1.74 X10^3/ul (4.0); Lymphocyte % 14.2 % (19-41); Mean Corp Hgb Conc 30.8 g/dL (32-36); Mean Corpuscular Hgb 25.9 pg (27.0-32.0); Mean Corpuscular Volume 84.1 fL (81-99); Mean Platelet Vol. 9.1 fl (6.2-12.0); Monocyte# 1.03 X10^3/uL; Monocyte% 8.4 % (0-10); NRBC Flagged by Analyzer 0 % (0-5); Neutrophil # 9.16 X10^3/uL (2.7-7.7); Platelet Count 442 K/mm3 (150-450); RBC Distribution Width CV 15.3 % (11.6-14.6); RBC Distribution Width SD 46.9 fl (35.1-43.9); Red Blood Count 3.59 M/mm3 (4.2-5.4); White Blood Count 12.2 K/mm3 (4.4-11.0)
[2020-05-07 06:56] LABS: Bedside Glucose 97 mg/dL (70-110)
[2020-05-07 07:11] LABS: Anion Gap 2 (5-15); BUN 19 mg/dL (7-18); BUN/Creat Ratio 33.2 RATIO (10-20); Chloride 105 mmol/L (98-107); Creatinine, Serum 0.57 mg/dL (0.55-1.02); EST Glomerular Filtration Rate 112 mL/min (>60); Est Glom Filt Rate - Afr Amer 136 mL/min (>60); Glucose 94 mg/dL (74-106); Potassium 3.7 mmol/L (3.5-5.1); Sodium Level 137 mmol/L (136-145)
--- NOTE | 2020-05-07 09:05 | CASEMGMT ---
SW did not complete a PHQ 9 as patient is now confused and unable to participate. Mandie FAM MSW
--- NOTE | 2020-05-07 09:46 | NURSING ---
NIH completed, pt uncooperative, refusing to complete assessment. NIH score not accurate.
--- NOTE | 2020-05-07 09:47 | CASEMGMT ---
BRANDON spoke with Magali at [facility] and updated her on patients. SW let her know PT/OT has not been able to see patient yet due to her confusion. She said patient will need a pre-cert before she can return. Patient will likely be here through the weekend due to needing pre-cert. Mandie FAM MSW
[2020-05-07] MEDS: Aspirin 81 MG TAB.CHEW PO (09:58)
[2020-05-07] MEDS: Clopidogrel Bisulfate 75 MG Tablet PO (09:59)
[2020-05-07] MEDS: Fluconazole 100 MG Tablet 200 MG PO (09:59)
[2020-05-07] MEDS: Metoprolol Tartrate 25 MG Tablet PO ×2 (09:59→22:07)
[2020-05-07] MEDS: DULoxetine Hcl 60 MG Capsule PO (10:00)
[2020-05-07] MEDS: hydroCHLOROthiazide 12.5mg 12.5 MG PO (10:00)
[2020-05-07] MEDS: Lisinopril 5 MG Tablet PO (10:01)
[2020-05-07] MEDS: Gabapentin 400 MG Capsule PO ×3 (10:01→16:09)
[2020-05-07] MEDS: Pantoprazole Sodium 20 MG Tablet PO (10:01)
[2020-05-07] MEDS: Ferrous Sulfate 325 MG Tablet PO (10:01)
[2020-05-07] MEDS: DAKIN'S SOL HALF STRENGTH (=0.25%) 1 APPLIC TOPICAL ×2 (10:07→22:04)
--- NOTE | 2020-05-07 10:55 | CASEMGMT ---
BRANDON faxed PT/OT evaluations to [facility]. Magali will start the pre-cert. Plan: d/c back to [facility] pending pre-cert. Mandie FAM SUSTAINABILITY PROJECT MANAGER
[2020-05-07 11:35] LABS: Bedside Glucose 131 mg/dL (70-110)
--- NOTE | 2020-05-07 12:18 | TELEMED_ITS ---
[facility] has confirmed receipt of a request for visit. This document confirms receipt of the order initiating the consult. To find the results of the consultation, please view the patient's reports for the scanned Telemed Consult.
--- NOTE | 2020-05-07 13:39 | CT_ITS ---
STUDY: CT BRAIN WITHOUT CONTRAST REASON FOR EXAM: Female, 65 years old. AMS, STROKE, LEFT SIDE WEAKNESS RADIATION DOSAGE (If Supplied By Facility): CTDIvol = ( 60.81 ) mGy, DLP = ( 1089.89 ) mGycm TECHNIQUE: Transaxial CT imaging of the brain was performed without administration of intravenous contrast material. Individualized dose optimization techniques were used for this CT. COMPARISON: Comparison is made with prior examination dated 07/19/2014. FINDINGS: Normal soft tissue structures. Normal calvarium. There is mild cerebral atrophy with widening of the extra-axial spaces and ventricular dilatation. There are areas of decreased attenuation within the white matter tracts of the supratentorial brain, consistent with microvascular disease changes. Stable areas of decreased attenuation in the posterior lateral aspect of the right occipital lobe as well as in the right posterior parietal lobe. No acute abnormality is seen. No evidence of mass effect. Normal basal ganglia and thalami. Normal brainstem. Normal cerebellum. There is no intracranial hemorrhage. There are no findings of an acute ischemic infarction. Atherosclerotic calcification of the cavernous portions of the internal carotid arteries as well as the vertebral arteries bilaterally. Normal visualized paranasal sinuses. CT/Brain/Head without Contrast IMPRESSION: Chronic involutional changes of the brain. Electronically Signed: Andrea Burch, at 14:57 EDT , Service support ,
--- NOTE | 2020-05-07 13:58 | CPS ---
1310...ATTEMPTED NASAL SWAB FOR COVID. PT REFUSED. PT WAS ENCOURAGED TO ALLOW SWAB TO BE DONE AND SHE WAS INFORMED THAT WE NEEDED TO DO IT SO SHE COULD BE DISCHARGED AND RETURN TO ASSISTED. PT CONTINUES TO REFUSE. MULTILITH OPERATOR AWARE AND ASKED THAT WE TRY TOMORROW.
--- NOTE | 2020-05-07 15:36 | PCM.PN.HOSP ---
Reason for Visit: Follow-up for stroke and acute encephalopathy. Multiple decubitus ulcer. Objective: No fever or chills. Heart rate fluctuates 80-100/min. 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 Physical exam General: Alert, Oriented x3, Cooperative HEENT: Atraumatic, PERRLA, EOMI, Normocephalic Oral: No Gingival or Mucosal Lesions/ Ulcerations Neck: Supple, No JVD, Negative Carotid Bruits Lungs: Air entry diminished in bilateral lung bases. No crepitation/rhonchi Cardiovascular: Regular rate, Regular Rhythm, Normal S1, Normal S2, No murmurs Abdomen: Bowel Sounds Present, Soft, Non Tender, Non-Distended : No renal angle tenderness. No suprapubic tenderness. Vulvar cancer and ulcer Extremities: No edema, Capillary Refill Less than 3 Seconds Skin: Decubitus ulcer, 1. Sacral decubitus. Left foot, lateral margin Musculoskeletal: No Tenderness to Palpation of Joints or Extremities Neurological: Cranial nerves II-XII grossly intact, Deep Tendon Reflexes 2+/4 and Symmetrical, Neuro grossly intact Psych/Mental Status: Normal Affect, Appropriate. Vitals/I&O's: Vital Signs Temp Pulse Resp BP Pulse Ox 97.4 F L 81 18 161/101 H 98 05/07/20 09:30 05/07/20 11:00 05/07/20 09:30 05/07/20 09:59 05/07/20 09:30 Oxygen Flow Rate (L/min) 97 Oxygen Delivery Method Room Air Weight: 275 lb 12.772 oz Body Mass Index (BMI) 45.8 Finger Stick Blood Glucose 111 Intake and Output for Last 24 Hours 05/05/20 05/06/20 05/07/20 23:59 23:59 23:59 Intake Total 600 / 600 120 / 120 Output Total 500 / 500 Balance 100 / 100 120 / 120 Microbiology Past 72 Hours 05/06/20 22:21 Wound - Buttock Gram Stain - Final 05/06/20 22:21 Wound - Buttock Wound Culture - Preliminary Gram negative [place] 05/07/20 01:15 Stool Stool Occult Blood (KRYSTIN) - Final Laboratory Results 05/06/20 06:45: Crossmatch See Detail 05/06/20 17:36: POC Glucose 79 05/06/20 20:41: Hgb 9.0 L, Hct 28.7 L 05/06/20 22:10: POC Glucose 76 05/06/20 22:21: S.aureus Protein A PCR NEGATIVE, MRSA (PCR) Negative 05/07/20 01:09: POC Glucose 92 05/07/20 06:03: WBC 12.2 H, RBC 3.59 L, Hgb 9.3 L, Hct 30.2 L, MCV 84.1, MCH 25.9 L, MCHC 30.8 L, RDW Std Deviation 46.9 H, RDW Coeff of Ash 15.3 H, Plt Count 442, MPV 9.1, Immature Gran % (Auto) 0.500, Neut % (Auto) 75.0 H, Lymph % (Auto) 14.2 L, [place] % (Auto) 8.4, Eos % (Auto) 1.6, Baso % (Auto) 0.3, Absolute Neuts (auto) 9.2 H, Absolute Lymphs (auto) 1.74, Nucleated RBC % 0 05/07/20 06:03: Sodium 137, Potassium 3.7, Chloride 105, Carbon Dioxide 30.0, Anion Gap 2 L, BUN 19 H, Creatinine 0.57, Estim Creat Clear Calc 49.80, Est GFR (MDRD) Af Amer 136, Est GFR (MDRD) Non-Af 112, BUN/Creatinine Ratio 33.2 H, Glucose 94, Calcium 9.0 05/07/20 06:44: POC Glucose 97 05/07/20 11:27: POC Glucose 131 H Current Medications Albuterol Sulfate (Ventolin Aerosols) 2.5 mg INHALATION Q6HWA.RT PRN PRN Reason: WHEEZING Amitriptyline HCl (Elavil) 50 mg PO QHS [facility] Last Admin: 05/06/20 22:30 Dose: Not Given Documented by: Aspirin (Aspirin, Baby) 81 mg PO DAILY@0800 [facility] Last Admin: 05/07/20 09:58 Dose: 81 mg Documented by: Atorvastatin Calcium (Lipitor) 80 mg PO QHS [facility] Last Admin: 05/06/20 22:31 Dose: Not Given Documented by: Clopidogrel Bisulfate (Plavix) 75 mg PO DAILY [facility] Last Admin: 05/07/20 09:59 Dose: 75 mg Documented by: Dextrose (D50w Syringe) 0 gm IV X1 PRN; Protocol PRN Reason: Hypoglycemia Diphenoxylate HCl/Atropine (Lomotil) 1 tablet PO 4X/DAY PRN PRN PRN Reason: Diarrhea Duloxetine HCl (Cymbalta) 60 mg PO DAILY [facility] Last Admin: 05/07/20 10:00 Dose: 60 mg Documented by: Ferrous Sulfate (Ferrous Sulfate) 325 mg PO DAILY@0800 [facility] Last Admin: 05/07/20 10:01 Dose: 325 mg Documented by: Fluconazole (Diflucan) 200 mg PO DAILY [facility] Stop: 05/09/20 10:01 Last Admin: 05/07/20 09:59 Dose: 200 mg Documented by: Gabapentin (Neurontin) 400 mg PO TIDCM [facility] Last Admin: 05/07/20 11:28 Dose: 400 mg Documented by: Glucagon () 1 mg IM .X1 PRN PRN Reason: Hypoglycemia Hydrochlorothiazide () 12.5 mg PO DAILY [facility] Last Admin: 05/07/20 10:00 Dose: 12.5 mg Documented by: Sodium Chloride () 250 mls @ 15 mls/hr IV .[id number] PRN PRN Reason: Saline Flush Sodium Chloride () 250 mls @ 15 mls/hr IV .[id number] PRN PRN Reason: Additional IVPB Infusion Sodium Chloride () 250 mls @ 15 mls/hr IV .[id number] PRN PRN Reason: Saline Flush Sodium Chloride () 250 mls @ 15 mls/hr IV .[id number] PRN PRN Reason: Additional IVPB Infusion Insulin Human Lispro (Humalog Kwikpen (Bkc)) 0 unit SC ACHS [facility]; Protocol Last Admin: 05/07/20 11:27 Dose: Not Given Documented by: Labetalol HCl (Trandate) 10 - 20 mg IV Q10M PRN PRN PRN Reason: to maintain BP goals Lisinopril (Zestril) 5 mg PO DAILY [facility] Last Admin: 05/07/20 10:01 Dose: 5 mg Documented by: Metoprolol Tartrate (Lopressor (Beta [place])) 25 mg PO BID [facility] Last Admin: 05/07/20 09:59 Dose: 25 mg Documented by: Nitroglycerin (Nitrostat) 0.4 mg SUBLINGUAL Q5M PRN PRN Reason: CARDIAC/CHEST PAIN Nutritional Formula (Milo - [place] Flavor) 1 packet PO BIDCM [facility] Last Admin: 05/07/20 10:01 Dose: Not Given Documented by: Nystatin (Mycostatin Powder) 1 applic TOPICAL TID [facility]; Protocol Last Admin: 05/07/20 06:47 Dose: 1 applic Documented by: Ondansetron HCl (Zofran) 4 mg IV Q8H PRN PRN PRN Reason: NAUSEA/VOMITING Pantoprazole Sodium (Protonix) 20 mg PO DAILY [facility] Last Admin: 05/07/20 10:01 Dose: 20 mg Documented by: Sodium Chloride () 10 - 40 ml IV UD PRN PRN Reason: SALINE FLUSH Sodium Hypochlorite (Dakins Solution 0.25% (1/2 Strength)) 1 applic TOPICAL BID [facility]; Protocol Last Admin: 05/07/20 10:07 Dose: 1 applic Documented by: Tramadol HCl (Ultram) 50 mg PO Q6H PRN PRN PRN Reason: Pain Score 4-10/10 Medical Necessity - Tobacco Use Smoking Status: Unknown if ever smoked Tobacco Use: Cigarettes Assessment/Plan All Active Problems Acute renal failure (Acute) Generalized weakness (Acute) Unable to perform basic transfer without assistance (Acute) Physical debility (Acute) Acute kidney injury (Acute) Intertriginous candidiasis (Acute) She is 65 y/o admitted after being found with left sided weakness and expressive aphasia in her SNF directly admitted from [facility]. 1. Left sided weakness and expressive aphasia, to r/o CVA: Patient is admitted in PCU. Currently confused, agitated and restless. Patient could not have an MRI even after 2 mg of IV Ativan.CT of the brain was negative for any acute intracranial process but CTA of the head and neck showed hard plaque at the carotid bulb and origin of the internal carotid arteries worse on the right than the left with approximately 50% stenosis and had plaque at the origin of the right CCA; negative for occlusion or bleed. On aspirin, Plavix and high intensity statin. Echo shows EF 75% with LA mildly enlarged. No Doppler evidence of ASD. Serial troponins are negative. Lipid profile LDL 22, HDL 20. Triglycerides 69. A1c 7.1. Glucose 153. 7/31: Discussed with the SOC neurologist. Patient unable to tolerate MRI brain. Repeat CT head shows chronic old stroke right posterior parietal lobe. Advised to continue aspirin and Plavix for 21 days then Plavix alone. Outpatient event monitor. We will try to get MRI brain tomorrow if patient cooperates. 2. History of CAD: On aspirin and statin as well as Plavix. 3. Acute anemia on anemia of chronic disease: Iron profile suggestive of anemia of chronic disease, ferritin 387, iron saturation 11.2%. Patient having 1 unit of PRBC transfusion. Stool for occult blood ordered. 4. Type 2 diabetes mellitus: on Lantus 68 units nightly with holding parameters. Insulin sliding scale. Accu-Cheks AC at bedtime. DC metformin. 5. Benign essential hypertension: On lisinopril and metoprolol. Will continue. 6. Sacral decubitus ulcer, left foot, lateral margin: Present on admission. Foul order. Clean with Dakin's twice daily. Discussed with the wound nurse. A. Right lower buttock ulcer between thigh, of unclear origin for type. 2.8 x 3.9 0.2 cm with minimal serosanguineous discharge. B. Sacral/coccyx decubitus ulcer stage IV, size 2.5 x 2.4 x 3.2 cm, pressure injury type with yellowish-green moderate amount of drainage. C. Blood blister on left foot third toe 1.5 x 1.5 cm. Left foot second toe 1.5 x 1 cm neuropathic/diabetic foot ulcer. Left lateral foot 2.2 x 4.1 cm neuropathic diabetic ulcer. Wound photos reviewed. Patient uncooperative for dressing change and wound culture. Initial Gram stain of wound culture from buttock growing gram-negative [place] but patient does not have fever or chills, most probably colonization. 7. Super morbid obesity: Complicates acute care, expected recovery and prognosis. DVT prophylaxis: SCDs. No anticoagulation o/a of anemia. Total time of the visit including total time spent in counseling or coordination of care, (more than 50% of the total time, spent in obtaining medical information from nurses and other ancillary care providers), discussion with field service consultant, review of labs and imaging is 30 minutes. Clinical Impression(s) from Imaging Studies Brain CT 05/07/20 13:39 IMPRESSION: Chronic involutional changes of the brain. Inpatient E&M: 62220 [facility] Hosp L3
[2020-05-07 17:00] LABS: Bedside Glucose 102 mg/dL (70-110)
[2020-05-07] MEDS: Amitriptyline 25 MG Tablet 50 MG PO (22:07)
[2020-05-07] MEDS: Atorvastatin Calcium 80 MG Tablet PO (22:07)
[2020-05-07] MEDS: traMADol 50 MG Tablet PO (22:14)
[2020-05-07] MEDS: Insulin Lispro 100 UNIT/ML INSULN.PEN SC (22:15)
[2020-05-07 22:46] LABS: Bedside Glucose 176 mg/dL (70-110)
[2020-05-08] VITALS (15 sets, daily range): BP systolic 135–168; BP diastolic 57–82; PULSE 79–96; RESP 16–18; TEMP 36.6–37.2; O2SAT 92–97; BMI 45.8
[2020-05-08 05:58] LABS: Absolute Lymphocyte Count 1.52 X10^3/uL (0.83-4.51); Absolute Neutrophil Count 8.2 X10^3/uL (2.0-7.7); Basophil# 0.03 X10^3/uL; Basophil% 0.3 % (0-1); Eosinophil# 0.24 X10^3/uL; Eosinophils% 2.2 % (0-5); Hematocrit 27.9 % (37-47); Hemoglobin 8.7 g/dL (12.0-15.0); Lymphocyte # 1.52 X10^3/ul (4.0); Lymphocyte % 14.2 % (19-41); Mean Corp Hgb Conc 31.2 g/dL (32-36); Mean Corpuscular Volume 83.3 fL (81-99); Monocyte# 0.76 X10^3/uL; Monocyte% 7.1 % (0-10); NRBC Flagged by Analyzer 0 % (0-5); Neutrophil # 8.15 X10^3/uL (2.7-7.7); Neutrophil % 75.8 % (47-70); Platelet Count 427 K/mm3 (150-450); RBC Distribution Width CV 15.7 % (11.6-14.6); RBC Distribution Width SD 47.9 fl (35.1-43.9); Red Blood Count 3.35 M/mm3 (4.2-5.4); White Blood Count 10.7 K/mm3 (4.4-11.0)
[2020-05-08 06:36] LABS: Anion Gap 3 (5-15); BUN 19 mg/dL (7-18); BUN/Creat Ratio 33.4 RATIO (10-20); Calcium,Total 8.4 mg/dL (8.5-10.1); Chloride 103 mmol/L (98-107); Creatinine, Serum 0.57 mg/dL (0.55-1.02); EST Glomerular Filtration Rate 113 mL/min (>60); Est Glom Filt Rate - Afr Amer 137 mL/min (>60); Glucose 129 mg/dL (74-106); Potassium 3.5 mmol/L (3.5-5.1); Sodium Level 135 mmol/L (136-145)
[2020-05-08] MEDS: Nystatin Powder 15gm Bottle 1 APPLIC TOPICAL ×3 (06:48→21:20)
[2020-05-08 07:01] LABS: Bedside Glucose 130 mg/dL (70-110)
[2020-05-08 09:19] LABS: Probe Check PASS; Specimen Processing Control PASS
[2020-05-08] MEDS: Glucerna Shake 120 ML LIQUID PO ×3 (09:23→16:49)
[2020-05-08] MEDS: Gabapentin 400 MG Capsule PO ×3 (09:24→16:49)
[2020-05-08] MEDS: Lisinopril 5 MG Tablet PO (09:24)
[2020-05-08] MEDS: Fluconazole 100 MG Tablet 200 MG PO (09:24)
[2020-05-08] MEDS: Aspirin 81 MG TAB.CHEW PO (09:24)
[2020-05-08] MEDS: Ferrous Sulfate 325 MG Tablet PO (09:24)
[2020-05-08] MEDS: Metoprolol Tartrate 25 MG Tablet PO ×2 (09:24→21:12)
[2020-05-08] MEDS: Pantoprazole Sodium 20 MG Tablet PO (09:25)
[2020-05-08] MEDS: Clopidogrel Bisulfate 75 MG Tablet PO (09:25)
[2020-05-08] MEDS: DAKIN'S SOL HALF STRENGTH (=0.25%) 1 APPLIC TOPICAL ×2 (09:25→23:05)
[2020-05-08] MEDS: DULoxetine Hcl 60 MG Capsule PO (09:25)
[2020-05-08] MEDS: hydroCHLOROthiazide 12.5mg 12.5 MG PO (09:29)
--- NOTE | 2020-05-08 10:51 | MRI_ITS ---
We are attempting to reach an attending provider to discuss findings. An addendum with communication details will be sent when the communication is complete. STUDY: MRI BRAIN WITHOUT CONTRAST REASON FOR EXAM: Female, 65 years old. LEG WEAKNESS, STROKE, pt medicated twice, refused to hold still despite methods to hold still TECHNIQUE: Standardized multiplanar fat and water weighted pulse sequences were obtained. COMPARISON: CT head without contrast 05/07/2020. MRI brain with and without contrast 07/20/2014. FINDINGS: Small curvilinear restricted diffusion in the left frontal lobe and left occipital lobe. They are suspicious for acute cortical gyral ischemic infarct. Old cortical gyral ischemic infarct with focal atrophy and encephalomalacia around the right precentral sulcus at the convexity. Old cortical gyral ischemic infarct with focal atrophy and encephalomalacia in the right occipital lobe. Normal ventricles and cisterns. Normal white matter tracts of the supratentorial brain. Normal bilateral basal ganglia. Normal thalami. There is no extra-axial fluid accumulation. Normal flow voids within the major intracranial circulation suggesting patency by spin echo criteria. Normal sella turcica, pituitary gland, infundibular stalk, optic chiasm and hypothalamus. Normal tectal plate and pineal gland. Normal midbrain, tequila and medulla. Normal cerebellum. Normal basal cisterns. Normal bilateral temporal bones. Normal bilateral internal auditory canals. No demonstrated orbital abnormality, within the constraints of a routine brain study. Normal visualized paranasal sinuses. Normal calvarium and skull base. Normal visualized soft tissue structures. Normal visualized upper cervical spine. MRI/Brain without Contrast IMPRESSION: 1. Acute cortical gyral ischemic infarct in the left frontal lobe and left occipital lobe. 2. Old cortical gyral ischemic infarcts with focal atrophy and encephalomalacia around the right precentral sulcus and in the right occipital lobe. Electronically Signed: Michoacano Lux MD at 13:59 EDT , Service support ,
--- NOTE | 2020-05-08 10:56 | PN_ITS ---
Vitals/I&O's: Vital Signs Temp Pulse Resp BP Pulse Ox 98.2 F 96 18 168/78 H 96 05/08/20 09:10 05/08/20 09:24 05/08/20 09:10 05/08/20 09:10 05/08/20 09:10 Oxygen Flow Rate (L/min) 97 Oxygen Delivery Method Room Air Weight: 275 lb 12.772 oz Body Mass Index (BMI) 45.8 Finger Stick Blood Glucose 111 Intake and Output for Last 24 Hours 05/06/20 05/07/20 05/08/20 23:59 23:59 23:59 Intake Total 600 / 600 600 / 600 240 / 240 Output Total 500 / 500 Balance 100 / 100 600 / 600 240 / 240 Microbiology Past 72 Hours 05/06/20 22:21 Wound - Buttock Gram Stain - Final 05/06/20 22:21 Wound - Buttock Wound Culture - Preliminary Proteus mirabilis Gram positive organism 05/07/20 01:15 Stool Stool Occult Blood (KRYSTIN) - Final Laboratory Results 05/07/20 11:27: POC Glucose 131 H 05/07/20 16:06: POC Glucose 102 05/07/20 21:59: POC Glucose 176 H 05/08/20 05:33: WBC 10.7, RBC 3.35 L, Hgb 8.7 L, Hct 27.9 L, MCV 83.3, MCH 26.0 L, MCHC 31.2 L, RDW Std Deviation 47.9 H, RDW Coeff of Ash 15.7 H, Plt Count 427, MPV 9.0, Immature Gran % (Auto) 0.400, Neut % (Auto) 75.8 H, Lymph % (Auto) 14.2 L, [place] % (Auto) 7.1, Eos % (Auto) 2.2, Baso % (Auto) 0.3, Absolute Neuts (auto) 8.2 H, Absolute Lymphs (auto) 1.52, Nucleated RBC % 0 05/08/20 05:33: Sodium 135 L, Potassium 3.5, Chloride 103, Carbon Dioxide 29.0, Anion Gap 3 L, BUN 19 H, Creatinine 0.57, Estim Creat Clear Calc 49.80, Est GFR (MDRD) Af Amer 137, Est GFR (MDRD) Non-Af 113, BUN/Creatinine Ratio 33.4 H, Glucose 129 H, Calcium 8.4 L 05/08/20 06:46: POC Glucose 130 H 05/08/20 07:30: COVID-19 (SHANE) Negative Current Medications Albuterol Sulfate (Ventolin Aerosols) 2.5 mg INHALATION Q6HWA.RT PRN PRN Reason: WHEEZING Amitriptyline HCl (Elavil) 50 mg PO QHS [facility] Last Admin: 05/07/20 22:07 Dose: 50 mg Documented by: Aspirin (Aspirin, Baby) 81 mg PO DAILY@0800 [facility] Last Admin: 05/08/20 09:24 Dose: 81 mg Documented by: Atorvastatin Calcium (Lipitor) 80 mg PO QHS [facility] Last Admin: 05/07/20 22:07 Dose: 80 mg Documented by: Clopidogrel Bisulfate (Plavix) 75 mg PO DAILY [facility] Last Admin: 05/08/20 09:25 Dose: 75 mg Documented by: Dextrose (D50w Syringe) 0 gm IV X1 PRN; Protocol PRN Reason: Hypoglycemia Diphenoxylate HCl/Atropine (Lomotil) 1 tablet PO 4X/DAY PRN PRN PRN Reason: Diarrhea Duloxetine HCl (Cymbalta) 60 mg PO DAILY [facility] Last Admin: 05/08/20 09:25 Dose: 60 mg Documented by: Ferrous Sulfate (Ferrous Sulfate) 325 mg PO DAILY@0800 [facility] Last Admin: 05/08/20 09:24 Dose: 325 mg Documented by: Fluconazole (Diflucan) 200 mg PO DAILY [facility] Stop: 05/09/20 10:01 Last Admin: 05/08/20 09:24 Dose: 200 mg Documented by: Gabapentin (Neurontin) 400 mg PO TIDCM [facility] Last Admin: 05/08/20 09:24 Dose: 400 mg Documented by: Glucagon () 1 mg IM .X1 PRN PRN Reason: Hypoglycemia Haloperidol Lactate (Haldol) 2 mg IV PRN PRN PRN Reason: MRI claustrophobia Hydrochlorothiazide () 12.5 mg PO DAILY [facility] Last Admin: 05/08/20 09:29 Dose: 12.5 mg Documented by: Sodium Chloride () 250 mls @ 15 mls/hr IV .[id number] PRN PRN Reason: Saline Flush Sodium Chloride () 250 mls @ 15 mls/hr IV .[id number] PRN PRN Reason: Additional IVPB Infusion Sodium Chloride () 250 mls @ 15 mls/hr IV .[id number] PRN PRN Reason: Saline Flush Sodium Chloride () 250 mls @ 15 mls/hr IV .[id number] PRN PRN Reason: Additional IVPB Infusion Insulin Human Lispro (Humalog Kwikpen (Bkc)) 0 unit SC ACHS [facility]; Protocol Last Admin: 05/08/20 06:48 Dose: Not Given Documented by: Labetalol HCl (Trandate) 10 - 20 mg IV Q10M PRN PRN PRN Reason: to maintain BP goals Lisinopril (Zestril) 5 mg PO DAILY [facility] Last Admin: 05/08/20 09:24 Dose: 5 mg Documented by: Metoprolol Tartrate (Lopressor (Beta [place])) 25 mg PO BID [facility] Last Admin: 05/08/20 09:24 Dose: 25 mg Documented by: Nitroglycerin (Nitrostat) 0.4 mg SUBLINGUAL Q5M PRN PRN Reason: CARDIAC/CHEST PAIN Nutritional Formula (Milo - [place] Flavor) 1 packet PO BIDCM [facility] Last Admin: 05/08/20 09:23 Dose: 1 packet Documented by: Nutritional Formula (Lactose Free) (Glucerna Shake) 120 ml PO TIDCM [facility] Last Admin: 05/08/20 09:23 Dose: 120 ml Documented by: Nystatin (Mycostatin Powder) 1 applic TOPICAL TID [facility]; Protocol Last Admin: 05/08/20 06:48 Dose: 1 applic Documented by: Ondansetron HCl (Zofran) 4 mg IV Q8H PRN PRN PRN Reason: NAUSEA/VOMITING Pantoprazole Sodium (Protonix) 20 mg PO DAILY [facility] Last Admin: 05/08/20 09:25 Dose: 20 mg Documented by: Promethazine HCl (Phenergan) 12.5 mg IV X1 PRN PRN Reason: MRI claustrophobia Sodium Chloride () 10 - 40 ml IV UD PRN PRN Reason: SALINE FLUSH Sodium Hypochlorite (Dakins Solution 0.25% (1/2 Strength)) 1 applic TOPICAL BID [facility]; Protocol Last Admin: 05/08/20 09:25 Dose: 1 applic Documented by: Tramadol HCl (Ultram) 50 mg PO Q6H PRN PRN PRN Reason: Pain Score 4-10/10 Last Admin: 05/07/20 22:14 Dose: 50 mg Documented by: STROKE Vital Signs/Narrative: Vital Signs Temp Pulse Resp BP Pulse Ox 05/08/20 09:24 96 05/08/20 09:10 98.2 F 96 18 168/78 H 96 05/08/20 07:36 95 Medical Necessity - Tobacco Use Smoking Status: Unknown if ever smoked Tobacco Use: Cigarettes Assessment/Plan All Active Problems Acute renal failure (Acute) Generalized weakness (Acute) Unable to perform basic transfer without assistance (Acute) Physical debility (Acute) Acute kidney injury (Acute) Intertriginous candidiasis (Acute) She is 65 y/o admitted after being found with left sided weakness and expressive aphasia in her SNF directly admitted from [facility]. 1. Left sided weakness and expressive aphasia, to r/o CVA: Patient is admitted in PCU. Currently confused, agitated and restless. Patient could not have an MRI even after 2 mg of IV Ativan.CT of the brain was negative for any acute intracranial process but CTA of the head and neck showed hard plaque at the carotid bulb and origin of the internal carotid arteries worse on the right than the left with approximately 50% stenosis and had plaque at the origin of the right CCA; negative for occlusion or bleed. On aspirin, Plavix and high intensity statin. Echo shows EF 75% with LA mildly enlarged. No Doppler evide nce of ASD. Serial troponins are negative. Lipid profile LDL 22, HDL 20. Triglycerides 69. A1c 7.1. Glucose 153. 05/07: Discussed with the SOC neurologist. Patient unable to tolerate MRI brain. Repeat CT head shows chronic old stroke right posterior parietal lobe. Advised to continue aspirin and Plavix for 21 days then Plavix alone. Outpatient event monitor. 05/08: MRI brain shows acute cortical gyral ischemic infarct in the left frontal lobe and left occipital lobe. Patient had similar chronic old gyral ischemic infarct in right precentral sulcus and right occipital lobe. Discussed with the radiologist. Patient was premedicated with Phenergan and Haldol for the procedure. SOC neuro consult. 2. History of CAD: On aspirin and statin as well as Plavix. 3. Acute anemia on anemia of chronic disease: Iron profile suggestive of anemia of chronic disease, ferritin 387, iron saturation 11.2%. Patient having 1 unit of PRBC transfusion. Stool for occult blood ordered. 4. Type 2 diabetes mellitus: on Lantus 68 units nightly with holding parameters. Insulin sliding scale. Accu-Cheks AC at bedtime. DC metformin. 5. Benign essential hypertension: On lisinopril and metoprolol. Will continue. 6. Sacral decubitus ulcer, left foot, lateral margin: Present on admission. Foul order. Clean with Dakin's twice daily. Discussed with the wound nurse. A. Right lower buttock ulcer between thigh, of unclear origin for type. 2.8 x 3.9 0.2 cm with minimal serosanguineous discharge. B. Sacral/coccyx decubitus ulcer stage IV, size 2.5 x 2.4 x 3.2 cm, pressure injury type with yellowish-green moderate amount of drainage. C. Blood blister on left foot third toe 1.5 x 1.5 cm. Left foot second toe 1.5 x 1 cm neuropathic/diabetic foot ulcer. Left lateral foot 2.2 x 4.1 cm neuropathic diabetic ulcer. Wound photos reviewed. Patient uncooperative for dressing change and wound culture. Initial Gram stain of wound culture from buttock is growing Proteus mirabilis 1+ 3+ gram-positive organism but patient does not have fever or chills, most probably colonization. It is MDR organism only susceptible to cefepime, meropenem Zosyn and gentamicin 7. Super morbid obesity: Complicates acute care, expected recovery and prognosis. DVT prophylaxis: SCDs. No anticoagulation o/a of anemia. Total time of the visit including total time spent in counseling or coordination of care, (more than 50% of the total time, spent in obtaining medical information from nurses and other ancillary care providers), discussion with strategy execution consultant, review of labs and imaging is 30 minutes. Clinical Impression(s) from Imaging Studies Brain CT 05/07/20 13:39 IMPRESSION: Chronic involutional changes of the brain. Brain MRI 05/08/20 10:51 IMPRESSION: 1. Acute cortical gyral ischemic infarct in the left frontal lobe and left occipital lobe. 2. Old cortical gyral ischemic infarcts with focal atrophy and encephalomalacia around the right precentral sulcus and in the right occipital lobe. Inpatient E&M: 03105 Subs Hosp L2
[2020-05-08] MEDS: traMADol 50 MG Tablet PO (10:58)
[2020-05-08] MEDS: Insulin Lispro 100 UNIT/ML INSULN.PEN SC ×3 (11:06→21:14)
[2020-05-08 11:11] LABS: Bedside Glucose 168 mg/dL (70-110)
[2020-05-08] MEDS: Haloperidol Lactate 5 MG/ML Vial 2 MG IV (11:34)
[2020-05-08] MEDS: proMETHazine 25 MG/ML Syringe 12.5 MG IV (11:34)
[2020-05-08] MEDS: 0.9% Saline Lock 10 ML Syringe IV (11:34)
--- NOTE | 2020-05-08 13:30 | NURSING ---
This RN gave Dr. Lopez the pt's son's name and number and told him that he would like called with Brain MRI results.
[2020-05-08 17:00] LABS: Bedside Glucose 238 mg/dL (70-110)
[2020-05-08] MEDS: Atorvastatin Calcium 80 MG Tablet PO (21:12)
[2020-05-08 23:36] LABS: Bedside Glucose 169 mg/dL (70-110)
[2020-05-09] VITALS (13 sets, daily range): BP systolic 127–177; BP diastolic 69–89; PULSE 75–88; RESP 12–16; TEMP 36.9–37.1; O2SAT 93–98; BMI 45.8
[2020-05-09] MEDS: Nystatin Powder 15gm Bottle 1 APPLIC TOPICAL ×3 (05:06→21:30)
[2020-05-09] MEDS: Insulin Lispro 100 UNIT/ML INSULN.PEN SC ×4 (06:30→20:59)
[2020-05-09 06:35] LABS: Bedside Glucose 178 mg/dL (70-110)
[2020-05-09] MEDS: Glucerna Shake 120 ML LIQUID PO ×3 (07:55→16:58)
[2020-05-09] MEDS: Aspirin 81 MG TAB.CHEW PO (07:56)
[2020-05-09] MEDS: Gabapentin 400 MG Capsule PO ×3 (07:56→16:58)
[2020-05-09] MEDS: Ferrous Sulfate 325 MG Tablet PO (07:56)
[2020-05-09] MEDS: Clopidogrel Bisulfate 75 MG Tablet PO (09:16)
[2020-05-09] MEDS: Fluconazole 100 MG Tablet 200 MG PO (09:16)
[2020-05-09] MEDS: DAKIN'S SOL HALF STRENGTH (=0.25%) 1 APPLIC TOPICAL ×2 (09:16→21:31)
[2020-05-09] MEDS: DULoxetine Hcl 60 MG Capsule PO (09:17)
[2020-05-09] MEDS: Lisinopril 5 MG Tablet PO (09:17)
[2020-05-09] MEDS: Pantoprazole Sodium 20 MG Tablet PO (09:17)
[2020-05-09] MEDS: hydroCHLOROthiazide 12.5mg 12.5 MG PO (09:17)
[2020-05-09] MEDS: Metoprolol Tartrate 25 MG Tablet PO ×2 (09:19→21:00)
[2020-05-09] MEDS: traMADol 50 MG Tablet PO (09:29)
[2020-05-09 11:16] LABS: Bedside Glucose 229 mg/dL (70-110)
--- NOTE | 2020-05-09 13:17 | PN_ITS ---
Reason for Visit: Follow-up for stroke and wound care Objective: Seen and examined. Patient is awake, alert and oriented x3. Patient answers questions appropriately. General: Alert, Oriented x3, Cooperative HEENT: Atraumatic, PERRLA, EOMI, Normocephalic Oral: No Gingival or Mucosal Lesions/ Ulcerations Neck: Supple, No JVD, Negative Carotid Bruits Lungs: Air entry diminished in bilateral lung bases. No crepitation/rhonchi. No hypoxia Cardiovascular: Regular rate, Regular Rhythm, Normal S1, Normal S2, No murmurs. Sinus rhythm on electronic device monitor Abdomen: Bowel Sounds Present, Soft, Non Tender, Non-Distended : No renal angle tenderness. No suprapubic tenderness. Extremities: No edema, Capillary Refill Less than 3 Seconds Skin: Sacral decubitus ulcer and left foot ulcer, chronic in nature. Musculoskeletal: Mild tenderness in right hip. Severe right hip arthritis and knee arthritis status post PJ infection and then antibiotic spacer. Severe loss of ROM in right hip and knee joint. Power 3/5 at major joints in both lower extremities Neurological: Cranial nerves II-XII grossly intact, Deep Tendon Reflexes 2+/4 and Symmetrical, Neuro grossly intact Psych/Mental Status: Normal Affect, Appropriate. Vitals/I&O's: Vital Signs Temp Pulse Resp BP Pulse Ox 98.4 F 88 16 148/70 H 96 05/09/20 12:40 05/09/20 12:40 05/09/20 12:40 05/09/20 12:40 05/09/20 12:40 Oxygen Flow Rate (L/min) 97 Oxygen Delivery Method Room Air Weight: 275 lb 12.772 oz Body Mass Index (BMI) 45.8 Finger Stick Blood Glucose 111 Intake and Output for Last 24 Hours 05/07/20 05/08/20 05/09/20 23:59 23:59 23:59 Intake Total 600 / 600 940 / 940 640 / 640 Balance 600 / 600 940 / 940 640 / 640 Microbiology Past 72 Hours 05/06/20 22:21 Wound - Buttock Gram Stain - Final 05/06/20 22:21 Wound - Buttock Wound Culture - Preliminary Proteus mirabilis GPC Poss Enterococcus sp Gram positive [place] 05/07/20 01:15 Stool Stool Occult Blood (KRYSTIN) - Final Laboratory Results 05/08/20 16:47: POC Glucose 238 H 05/08/20 21:07: POC Glucose 169 H 05/09/20 06:29: POC Glucose 178 H 05/09/20 11:06: POC Glucose 229 H Current Medications Albuterol Sulfate (Ventolin Aerosols) 2.5 mg INHALATION Q6HWA.RT PRN PRN Reason: WHEEZING Amitriptyline HCl (Elavil) 50 mg PO QHS [facility] Last Admin: 05/08/20 21:12 Dose: Not Given Documented by: Aspirin (Aspirin, Baby) 81 mg PO DAILY@0800 [facility] Last Admin: 05/09/20 07:56 Dose: 81 mg Documented by: Atorvastatin Calcium (Lipitor) 80 mg PO QHS [facility] Last Admin: 05/08/20 21:12 Dose: 80 mg Documented by: Clopidogrel Bisulfate (Plavix) 75 mg PO DAILY [facility] Last Admin: 05/09/20 09:16 Dose: 75 mg Documented by: Dextrose (D50w Syringe) 0 gm IV X1 PRN; Protocol PRN Reason: Hypoglycemia Diphenoxylate HCl/Atropine (Lomotil) 1 tablet PO 4X/DAY PRN PRN PRN Reason: Diarrhea Duloxetine HCl (Cymbalta) 60 mg PO DAILY [facility] Last Admin: 05/09/20 09:17 Dose: 60 mg Documented by: Ferrous Sulfate (Ferrous Sulfate) 325 mg PO DAILY@0800 [facility] Last Admin: 05/09/20 07:56 Dose: 325 mg Documented by: Gabapentin (Neurontin) 400 mg PO TIDCM [facility] Last Admin: 05/09/20 11:03 Dose: 400 mg Documented by: Glucagon () 1 mg IM .X1 PRN PRN Reason: Hypoglycemia Haloperidol Lactate (Haldol) 2 mg IV PRN PRN PRN Reason: MRI claustrophobia Last Admin: 05/08/20 11:34 Dose: 2 mg Documented by: Hydrochlorothiazide () 12.5 mg PO DAILY [facility] Last Admin: 05/09/20 09:17 Dose: 12.5 mg Documented by: Sodium Chloride () 250 mls @ 15 mls/hr IV .[id number] PRN PRN Reason: Saline Flush Sodium Chloride () 250 mls @ 15 mls/hr IV .[id number] PRN PRN Reason: Additional IVPB Infusion Sodium Chloride () 250 mls @ 15 mls/hr IV .[id number] PRN PRN Reason: Saline Flush Sodium Chloride () 250 mls @ 15 mls/hr IV .[id number] PRN PRN Reason: Additional IVPB Infusion Insulin Human Lispro (Humalog Kwikpen (Bkc)) 0 unit SC ACHS [facility]; Protocol Last Admin: 05/09/20 11:07 Dose: 4 units Documented by: Labetalol HCl (Trandate) 10 - 20 mg IV Q10M PRN PRN PRN Reason: to maintain BP goals Lisinopril (Zestril) 5 mg PO DAILY [facility] Last Admin: 05/09/20 09:17 Dose: 5 mg Documented by: Metoprolol Tartrate (Lopressor (Beta [place])) 25 mg PO BID [facility] Last Admin: 05/09/20 09:19 Dose: 25 mg Documented by: Nitroglycerin (Nitrostat) 0.4 mg SUBLINGUAL Q5M PRN PRN Reason: CARDIAC/CHEST PAIN Nutritional Formula (Milo - [place] Flavor) 1 packet PO BIDCM [facility] Last Admin: 05/09/20 07:56 Dose: Not Given Documented by: Nutritional Formula (Lactose Free) (Glucerna Shake) 120 ml PO TIDCM [facility] Last Admin: 05/09/20 11:04 Dose: 120 ml Documented by: Nystatin (Mycostatin Powder) 1 applic TOPICAL TID [facility]; Protocol Last Admin: 05/09/20 05:06 Dose: 1 applic Documented by: Ondansetron HCl (Zofran) 4 mg IV Q8H PRN PRN PRN Reason: NAUSEA/VOMITING Pantoprazole Sodium (Protonix) 20 mg PO DAILY [facility] Last Admin: 05/09/20 09:17 Dose: 20 mg Documented by: Promethazine HCl (Phenergan) 12.5 mg IV X1 PRN PRN Reason: MRI claustrophobia Last Admin: 05/08/20 11:34 Dose: 12.5 mg Documented by: Sodium Chloride () 10 - 40 ml IV UD PRN PRN Reason: SALINE FLUSH Last Admin: 05/08/20 11:34 Dose: 10 ml Documented by: Sodium Hypochlorite (Dakins Solution 0.25% (1/2 Strength)) 1 applic TOPICAL BID [facility]; Protocol Last Admin: 05/09/20 09:16 Dose: 1 applic Documented by: Tramadol HCl (Ultram) 50 mg PO Q6H PRN PRN PRN Reason: Pain Score 4-10/10 Last Admin: 05/09/20 09:29 Dose: 50 mg Documented by: STROKE Vital Signs/Narrative: Vital Signs Temp Pulse Resp BP Pulse Ox 05/09/20 12:40 98.4 F 88 16 148/70 H 96 05/09/20 11:00 76 05/09/20 09:19 85 Medical Necessity - Tobacco Use Smoking Status: Unknown if ever smoked Tobacco Use: Cigarettes Assessment/Plan All Active Problems Acute renal failure (Acute) Generalized weakness (Acute) Unable to perform basic transfer without assistance (Acute) Physical debility (Acute) Acute kidney injury (Acute) Intertriginous candidiasis (Acute) She is 65 y/o admitted after being found with left sided weakness and expressive aphasia in her SNF directly admitted from [facility]. 1. Left sided weakness and expressive aphasia, to r/o CVA: Patient is admitted in PCU. Currently confused, agitated and restless. Patient could not have an MRI even after 2 mg of IV Ativan.CT of the brain was negative for any acute intracranial process but CTA of the head and neck showed hard plaque at the carotid bulb and origin of the internal carotid arteries worse on the right than the left with approximately 50% stenosis and had plaque at the origin of the right CCA; negative for occlusion or bleed. On aspirin, Plavix and high intensity statin. Echo shows EF 75% with LA mildly enlarged. No Doppler evidence of ASD. Serial troponins are negative. Lipid profile LDL 22, HDL 20. Triglycerides 69. A1c 7.1. Glucose 153. 05/07: Discussed with the SOC neurologist. Patient unable to tolerate MRI brain. Repeat CT head shows chronic old stroke right posterior parietal lobe. Advised to continue aspirin and Plavix for 21 days then Plavix alone. Outpatient event monitor. 05/08: MRI brain shows acute cortical gyral ischemic infarct in the left frontal lobe and left occipital lobe. Patient had similar chronic old gyral ischemic infarct in right precentral sulcus and right occipital lobe. Discussed with the radiologist. Patient was premedicated with Phenergan and Haldol for the procedure. SOC neuro consult. 05/09: PT and OT to continue. Need SNF. 2. History of CAD: On aspirin and statin as well as Plavix. 3. Acute anemia on anemia of chronic disease: Iron profile suggestive of anemia of chronic disease, ferritin 387, iron saturation 11.2%. Patient having 1 unit of PRBC transfusion. Stool for occult blood ordered. 4. Type 2 diabetes mellitus: on Lantus 68 units nightly with holding parameters. Insulin sliding scale. Accu-Cheks AC at bedtime. DC metformin. 5. Benign essential hypertension: On lisinopril and metoprolol. Will continue. 6. Sacral decubitus ulcer, left foot, lateral margin: Present on admission. Foul order. Clean with Dakin's twice daily. Discussed with the wound nurse. A. Right lower buttock ulcer between thigh, of unclear origin for type. 2.8 x 3.9 0.2 cm with minimal serosanguineous discharge. B. Sacral/coccyx decubitus ulcer stage IV, size 2.5 x 2.4 x 3.2 cm, pressure injury type with yellowish-green moderate amount of drainage. C. Blood blister on left foot third toe 1.5 x 1.5 cm. Left foot second toe 1.5 x 1 cm neuropathic/diabetic foot ulcer. Left lateral foot 2.2 x 4.1 cm neuropathic diabetic ulcer. Wound photos reviewed. Patient uncooperative for dressing change and wound culture. Gram stain of wound culture from buttock is growing Proteus mirabilis 1+, 1+ GPC possible enterococcus and 1+ gram-positive rods. The patient does not have fever or chills, most probably wound colonization. It is MDR organism only susceptible to cefepime, meropenem Zosyn and gentamicin. Resolution of leukocytosis. 7. Super morbid obesity: Complicates acute care, expected recovery and prognos is. DVT prophylaxis: SCDs. No anticoagulation o/a of anemia. Total time of the visit including total time spent in counseling or coordination of care, (more than 50% of the total time, spent in obtaining medical information from nurses and other ancillary care providers), discussion with advisor consultant, review of labs and imaging is 30 minutes. Clinical Impression(s) from Imaging Studies Brain CT 05/07/20 13:39 IMPRESSION: Chronic involutional changes of the brain. Brain MRI 05/08/20 10:51 IMPRESSION: 1. Acute cortical gyral ischemic infarct in the left frontal lobe and left occipital lobe. 2. Old cortical gyral ischemic infarcts with focal atrophy and encephalomalacia around the right precentral sulcus and in the right occipital lobe. Inpatient E&M: 50326 Subs Hosp L2
[2020-05-09] MEDS: Enoxaparin 40 MG/0.4 ML Syringe SC (14:33)
[2020-05-09 18:06] LABS: Bedside Glucose 218 mg/dL (70-110)
--- NOTE | 2020-05-09 20:54 | NURSING ---
Pt reports she felt some of the staff at [facility] were rough with her.
[2020-05-09] MEDS: Atorvastatin Calcium 80 MG Tablet PO (21:00)
[2020-05-09] MEDS: Amitriptyline 25 MG Tablet 50 MG PO (21:01)
[2020-05-09 22:56] LABS: Bedside Glucose 209 mg/dL (70-110)
[2020-05-10] VITALS (13 sets, daily range): BP systolic 122–172; BP diastolic 49–85; PULSE 71–86; RESP 11–18; TEMP 36.3–37.2; O2SAT 96–99; BMI 45.8
--- NOTE | 2020-05-10 04:57 | NURSING ---
NIHSS difficult to complete at this time as pt is very drowsy. Unable to keep patient awake for assessment. NIHSS completed as fully as pt level of consciousness allows at this time. Will continue to monitor.
[2020-05-10] MEDS: Nystatin Powder 15gm Bottle 1 APPLIC TOPICAL ×3 (05:11→21:31)
[2020-05-10 05:46] LABS: Bedside Glucose 174 mg/dL (70-110)
[2020-05-10 05:51] LABS: Absolute Lymphocyte Count 1.91 X10^3/uL (0.83-4.51); Absolute Neutrophil Count 5.9 X10^3/uL (2.0-7.7); Basophil# 0.04 X10^3/uL; Basophil% 0.4 % (0-1); Eosinophil# 0.31 X10^3/uL; Eosinophils% 3.4 % (0-5); Hematocrit 29.1 % (37-47); Hemoglobin 8.8 g/dL (12.0-15.0); Lymphocyte # 1.91 X10^3/ul (4.0); Lymphocyte % 21.2 % (19-41); Mean Corp Hgb Conc 30.2 g/dL (32-36); Mean Corpuscular Hgb 25.8 pg (27.0-32.0); Mean Corpuscular Volume 85.3 fL (81-99); Mean Platelet Vol. 8.6 fl (6.2-12.0); Monocyte# 0.82 X10^3/uL; Monocyte% 9.1 % (0-10); NRBC Flagged by Analyzer 0 % (0-5); Neutrophil # 5.89 X10^3/uL (2.7-7.7); Neutrophil % 65.6 % (47-70); Platelet Count 382 K/mm3 (150-450); RBC Distribution Width SD 49.9 fl (35.1-43.9); Red Blood Count 3.41 M/mm3 (4.2-5.4)
[2020-05-10 06:21] LABS: Anion Gap 3 (5-15); BUN 16 mg/dL (7-18); BUN/Creat Ratio 26.6 RATIO (10-20); Calcium,Total 8.3 mg/dL (8.5-10.1); Chloride 101 mmol/L (98-107); EST Glomerular Filtration Rate 106 mL/min (>60); Est Glom Filt Rate - Afr Amer 128 mL/min (>60); Glucose 186 mg/dL (74-106); Potassium 3.8 mmol/L (3.5-5.1); Sodium Level 134 mmol/L (136-145)
[2020-05-10] MEDS: Insulin Lispro 100 UNIT/ML INSULN.PEN SC ×4 (06:57→21:29)
[2020-05-10] MEDS: DAKIN'S SOL HALF STRENGTH (=0.25%) 1 APPLIC TOPICAL ×2 (08:43→21:29)
[2020-05-10 09:30] LABS: Bedside Glucose 197 mg/dL (70-110)
--- NOTE | 2020-05-10 09:31 | NURSING ---
wound photo: left foot
--- NOTE | 2020-05-10 09:31 | NURSING ---
wound photo: sacrum
--- NOTE | 2020-05-10 09:32 | NURSING ---
wound photo: right gluteal crease
[2020-05-10] MEDS: Glucerna Shake 120 ML LIQUID PO ×3 (10:23→16:55)
[2020-05-10] MEDS: Ferrous Sulfate 325 MG Tablet PO (10:23)
[2020-05-10] MEDS: Aspirin 81 MG TAB.CHEW PO (10:23)
[2020-05-10] MEDS: Metoprolol Tartrate 25 MG Tablet PO ×2 (10:24→21:31)
[2020-05-10] MEDS: Lisinopril 5 MG Tablet PO (10:24)
[2020-05-10] MEDS: hydroCHLOROthiazide 12.5mg 12.5 MG PO (10:24)
[2020-05-10] MEDS: Clopidogrel Bisulfate 75 MG Tablet PO (10:24)
[2020-05-10] MEDS: Pantoprazole Sodium 20 MG Tablet PO (10:24)
[2020-05-10] MEDS: Gabapentin 400 MG Capsule PO ×3 (10:24→16:55)
[2020-05-10] MEDS: DULoxetine Hcl 60 MG Capsule PO (10:24)
[2020-05-10] MEDS: Enoxaparin 40 MG/0.4 ML Syringe SC (10:28)
--- NOTE | 2020-05-10 10:36 | CASEMGMT ---
BRANDON faxed updates to [email or web address]. BRANDON spoke with Magali at [email or web address] and let her know BRANDON faxed updates on patient. She will get the information to insurance. Plan: Return to [email or web address] pending insurance approval. Mandie FAM MSW
--- NOTE | 2020-05-10 10:53 | NURSING ---
With patients verbal permission, update was given to patient's sister Mila Dumas.
--- NOTE | 2020-05-10 10:59 | CASEMGMT ---
BRANDON spoke with Leia Sepulveda from [facility]. SW updated her on patient's hospital stay and d/c plan. Mandie FAM MSW
--- NOTE | 2020-05-10 12:07 | PCM.PN.HOSP ---
Reason for Visit: CVA Subjective: Not interactive. Opens eyes to voice. Vitals/I&O's: Vital Signs Temp Pulse Resp BP Pulse Ox 36.3 C L 84 16 172/49 H 99 05/10/20 10:15 05/10/20 10:24 05/10/20 10:15 05/10/20 10:15 05/10/20 10:15 Oxygen Flow Rate (L/min) 97 Oxygen Delivery Method Room Air Weight: 125.1 kg Body Mass Index (BMI) 45.8 Finger Stick Blood Glucose 111 Intake and Output for Last 24 Hours 05/08/20 05/09/20 05/10/20 23:59 23:59 23:59 Intake Total 940 / 940 1400 / 1400 140 / 140 Output Total 500 / 500 160 / 160 Balance 940 / 940 900 / 900 - General: No apparent distress, Lethargic HEENT: Atraumatic, Normocephalic Oral: Moist Mucosa, No Gingival or Mucosal Lesions/ Ulcerations Neck: No Nodes, Thyroid Normal Size and Texture Lungs: Clear to auscultation, Normal air movement, No rhonchi, No wheeze, No rales Cardiovascular: Regular rate, Regular Rhythm, Normal S1, Normal S2, No murmurs Abdomen: Bowel Sounds Present, Soft, Non Tender, Non-Distended, No Hepato-splenomegaly Extremities: No edema, No Calf Tenderness Skin: No rashes, No breakdown Musculoskeletal: No Tenderness to Palpation of Joints or Extremities, No Muscle Wasting Neurological: - - no clonus, GAYTAN spontaneously. Psych/Mental Status: Normal Affect, Appropriate Microbiology Past 72 Hours 05/06/20 22:21 Wound - Buttock Gram Stain - Final 05/06/20 22:21 Wound - Buttock Wound Culture - Final Proteus mirabilis Enterococcus faecalis Corynebacterium striatum 05/06/20 22:21 Wound - Buttock Anaerobic Culture - Preliminary Checking for anaerobes, further studies to follow. Laboratory Results 05/09/20 16:57: POC Glucose 218 H 05/09/20 20:58: POC Glucose 209 H 05/10/20 05:08: POC Glucose 174 H 05/10/20 05:45: WBC 9.0, RBC 3.41 L, Hgb 8.8 L, Hct 29.1 L, MCV 85.3, MCH 25.8 L, MCHC 30.2 L, RDW Std Deviation 49.9 H, RDW Coeff of Ash 16.0 H, Plt Count 382, MPV 8.6, Immature Gran % (Auto) 0.300, Neut % (Auto) 65.6, Lymph % (Auto) 21.2, [place] % (Auto) 9.1, Eos % (Auto) 3.4, Baso % (Auto) 0.4, Absolute Neuts (auto) 5.9, Absolute Lymphs (auto) 1.91, Nucleated RBC % 0 05/10/20 05:45: Sodium 134 L, Potassium 3.8, Chloride 101, Carbon Dioxide 30.0, Anion Gap 3 L, BUN 16, Creatinine 0.60, Estim Creat Clear Calc 49.80, Est GFR (MDRD) Af Amer 128, Est GFR (MDRD) Non-Af 106, BUN/Creatinine Ratio 26.6 H, Glucose 186 H, Calcium 8.3 L 05/10/20 06:55: POC Glucose 197 H Current Medications Albuterol Sulfate (Ventolin Aerosols) 2.5 mg INHALATION Q6HWA.RT PRN PRN Reason: WHEEZING Amitriptyline HCl (Elavil) 50 mg PO QHS [facility] Last Admin: 05/09/20 21:01 Dose: 50 mg Documented by: Aspirin (Aspirin, Baby) 81 mg PO DAILY@0800 [facility] Last Admin: 05/10/20 10:23 Dose: 81 mg Documented by: Atorvastatin Calcium (Lipitor) 80 mg PO QHS [facility] Last Admin: 05/09/20 21:00 Dose: 80 mg Documented by: Clopidogrel Bisulfate (Plavix) 75 mg PO DAILY [facility] Last Admin: 05/10/20 10:24 Dose: 75 mg Documented by: Dextrose (D50w Syringe) 0 gm IV X1 PRN; Protocol PRN Reason: Hypoglycemia Diphenoxylate HCl/Atropine (Lomotil) 1 tablet PO 4X/DAY PRN PRN PRN Reason: Diarrhea Duloxetine HCl (Cymbalta) 60 mg PO DAILY [facility] Last Admin: 05/10/20 10:24 Dose: 60 mg Documented by: Enoxaparin Sodium (Lovenox) 40 mg SC DAILY [facility] Last Admin: 05/10/20 10:28 Dose: 40 mg Documented by: Ferrous Sulfate (Ferrous Sulfate) 325 mg PO DAILY@0800 [facility] Last Admin: 05/10/20 10:23 Dose: 325 mg Documented by: Gabapentin (Neurontin) 400 mg PO TIDCM [facility] Last Admin: 05/10/20 10:24 Dose: 400 mg Documented by: Glucagon () 1 mg IM .X1 PRN PRN Reason: Hypoglycemia Haloperidol Lactate (Haldol) 2 mg IV PRN PRN PRN Reason: MRI claustrophobia Last Admin: 05/08/20 11:34 Dose: 2 mg Documented by: Hydrochlorothiazide () 12.5 mg PO DAILY [facility] Last Admin: 05/10/20 10:24 Dose: 12.5 mg Documented by: Sodium Chloride () 250 mls @ 15 mls/hr IV .[id number] PRN PRN Reason: Saline Flush Sodium Chloride () 250 mls @ 15 mls/hr IV .[id number] PRN PRN Reason: Additional IVPB Infusion Sodium Chloride () 250 mls @ 15 mls/hr IV .[id number] PRN PRN Reason: Saline Flush Sodium Chloride () 250 mls @ 15 mls/hr IV .[id number] PRN PRN Reason: Additional IVPB Infusion Insulin Human Lispro (Humalog Kwikpen (Bkc)) 0 unit SC [facility]; Protocol Last Admin: 05/10/20 06:57 Dose: 2 units Documented by: Labetalol HCl (Trandate) 10 - 20 mg IV Q10M PRN PRN PRN Reason: to maintain BP goals Lisinopril (Zestril) 5 mg PO DAILY [facility] Last Admin: 05/10/20 10:24 Dose: 5 mg Documented by: Metoprolol Tartrate (Lopressor (Beta [place])) 25 mg PO BID [facility] Last Admin: 05/10/20 10:24 Dose: 25 mg Documented by: Nitroglycerin (Nitrostat) 0.4 mg SUBLINGUAL Q5M PRN PRN Reason: CARDIAC/CHEST PAIN Nutritional Formula (Milo - [place] Flavor) [facility] Last Admin: 05/10/20 10:33 Dose: Not Given Documented by: Nutritional Formula (Lactose Free) (Glucerna Shake) 120 ml PO TIDCM [facility] Last Admin: 05/10/20 10:23 Dose: 120 ml Documented by: Nystatin (Mycostatin Powder) 1 applic TOPICAL TID [facility]; Protocol Last Admin: 05/10/20 05:11 Dose: 1 applic Documented by: Ondansetron HCl (Zofran) 4 mg IV Q8H PRN PRN PRN Reason: NAUSEA/VOMITING Pantoprazole Sodium (Protonix) 20 mg PO DAILY [facility] Last Admin: 05/10/20 10:24 Dose: 20 mg Documented by: Promethazine HCl (Phenergan) 12.5 mg IV X1 PRN PRN Reason: MRI claustrophobia Last Admin: 05/08/20 11:34 Dose: 12.5 mg Documented by: Sodium Chloride () 10 - 40 ml IV UD PRN PRN Reason: SALINE FLUSH Last Admin: 05/08/20 11:34 Dose: 10 ml Documented by: Sodium Hypochlorite (Dakins Solution 0.25% (1/2 Strength)) 1 applic TOPICAL BID [facility]; Protocol Last Admin: 05/10/20 08:43 Dose: 1 applic Documented by: Tramadol HCl (Ultram) 50 mg PO Q6H PRN PRN PRN Reason: Pain Score 4-10/10 Last Admin: 05/09/20 09:29 Dose: 50 mg Documented by: STROKE Vital Signs/Narrative: Vital Signs Temp Pulse Resp BP Pulse Ox 05/10/20 10:24 84 05/10/20 10:15 36.3 C L 84 16 172/49 H 99 Medical Necessity - Tobacco Use Smoking Status: Unknown if ever smoked Tobacco Use: Cigarettes Assessment/Plan All Active Problems Acute renal failure (Acute) Generalized weakness (Acute) Unable to perform basic transfer without assistance (Acute) Physical debility (Acute) Acute kidney injury (Acute) Intertriginous candidiasis (Acute) 1. Acute CVA left frontal and occipital CVA per neuro: ASA and clopidogrel for 21 days, then clopidogrel continue HIS event monitor upon discharge 2. Carotid stenosis 50% stenosis right CCA follow up with vascular surgery as outpt. 3. CAD on DAPT 4. chronic anemia: stable 5. DM2: fair control 6. VTE prophylaxis: LMWH 7. Disposition: pending precert Inpatient E&M: [id number] [facility] Hosp L3
[2020-05-10 12:20] LABS: Bedside Glucose 187 mg/dL (70-110)
[2020-05-10] MEDS: traMADol 50 MG Tablet PO (13:07)
--- NOTE | 2020-05-10 14:42 | CASEMGMT ---
SW completed Healthcare Power of Core Drill Operator and a Healthcare Living Will. Copies were made and given to patient along with originals. A copy of each was also placed in chart. Mandie ZUNIGA
[2020-05-10 17:10] LABS: Bedside Glucose 235 mg/dL (70-110)
[2020-05-10] MEDS: Atorvastatin Calcium 80 MG Tablet PO (21:30)
[2020-05-10] MEDS: Amitriptyline 25 MG Tablet 50 MG PO (21:30)
[2020-05-10 21:46] LABS: Bedside Glucose 204 mg/dL (70-110)
[2020-05-11 03:00] VITALS: PULSE 88
[2020-05-11 03:13] VITALS: BP 142/80; PULSE 89; RESP 18; TEMP 36.9; O2SAT 97
[2020-05-11] MEDS: Nystatin Powder 15gm Bottle 1 APPLIC TOPICAL (06:27)
[2020-05-11] MEDS: Insulin Lispro 100 UNIT/ML INSULN.PEN SC ×2 (06:27→12:55)
[2020-05-11 06:40] LABS: Bedside Glucose 191 mg/dL (70-110)
[2020-05-11 06:50] VITALS: PULSE 88
[2020-05-11] MEDS: hydroCHLOROthiazide 12.5mg 12.5 MG PO (08:59)
[2020-05-11] MEDS: Glucerna Shake 120 ML LIQUID PO ×2 (08:59→12:52)
[2020-05-11] MEDS: Aspirin 81 MG TAB.CHEW PO (08:59)
[2020-05-11] MEDS: Ferrous Sulfate 325 MG Tablet PO (08:59)
[2020-05-11] MEDS: Gabapentin 400 MG Capsule PO ×2 (08:59→12:52)
[2020-05-11] MEDS: DULoxetine Hcl 60 MG Capsule PO (08:59)
[2020-05-11 09:00] VITALS: PULSE 87
[2020-05-11] MEDS: Metoprolol Tartrate 25 MG Tablet PO (09:00)
[2020-05-11] MEDS: Enoxaparin 40 MG/0.4 ML Syringe SC (09:00)
[2020-05-11] MEDS: Lisinopril 5 MG Tablet PO (09:00)
[2020-05-11] MEDS: Clopidogrel Bisulfate 75 MG Tablet PO (09:00)
[2020-05-11] MEDS: Pantoprazole Sodium 20 MG Tablet PO (09:00)
[2020-05-11 09:07] VITALS: BP 164/77; PULSE 87; RESP 20; TEMP 36.8; O2SAT 96
--- NOTE | 2020-05-11 09:28 | PCM.TXEXTCAR ---
- Diet 05/06/20 02:59 Diet: Cardiac: Calorie-Controlled Food consistency:: Regular Liquid Consistency:: Regular/Thin How many daily calories?: 2199 calorie - Routine Orders/Code Status Routine Lab Work: CBC - every sunday, BMP - every sunday - Wound(s) coccyx Wound Type: Pressure Injury Dressing Change: Dakins moistened gauze right lower buttock between thigh Wound Type: Wound of unknown origin Dressing Change: AntiMicrobial (Aquacel AG, etc) back of right thigh Wound Type: Abrasion left lateral foot by pinkey toe Wound Type: Neuropathic/Diabetic Foot Ulcer left foot great toe Wound Type: Stasis Ulcer left foot second toe Wound Type: Neuropathic/Diabetic Foot Ulcer left foot 3rd toe Wound Type: Neuropathic/Diabetic Foot Ulcer - Therapies Physical Therapy: Eval and Treat Occupational Therapy: Eval and Treat Speech Therapy: Eval and Treat - Allergies/Procedures Done in Hospital Allergies/Adverse Reactions: Allergies povidone-iodine [From Betadine] Allergy (Verified 03/07/20 15:27) Itching topical betadine prednisone Allergy (Verified 03/07/20 15:27) tiny mouth ulcers - Type of Care/Length of Stay Estimated LOS: Convalescent Care Less Than 30 days Type of Care Needed: Skilled Rehab Potential: Fair Prognosis: Fair - Additional Orders/Day of Discharge Day of Discharge: 05/11/20 - Dietary and Speech Recommendations Dietitian Recommendations/Changes: D/C Milo 1pkt BID d/t refusals. Continue 2199 Calorie Controlled/Cardiac Diet with Glucerna Shake 120ml TID. Speech Linguistic Eval Summary: Informal cognitive assessment completed. She lives with her son and reported that he assists her with medication and finance management. Pt oriented to self, , age, place, date. Pt followed simple, verbal 1-step commands with 100% acc and 2-step commands with 70% acc. Pt presented with slowed rate of speech and slow response time in conversation; however, pt answered simple questions appropriately. Pt had deficits in attention and required occ redirection to task throughout session. Provided scenarios of unsafe situations, pt verbalized solutions with 3/5 acc. Pt demonstrated immediate recall of 3 unrelated words with 3/3 acc. Given 5 min delay, pt demonstrated recall of 2/3 acc. Pt presents with mild-moderate cognitive linguistic impairment characterized by deficits in attention, memory, comprehension, problem solving and safety awareness. - Follow Up Care Primary Care Physician: Gera Snider III, MD [Primary Care Provider] - Within 2 Weeks Please Follow Up With: Juan Oliveira MD - neurology When: 1-2 months
--- NOTE | 2020-05-11 10:03 | PHA.DC.MR ---
Pharmacy Service has performed discharge medication reconciliation for this patient. The patient's discharge medication list was reviewed for discrepancies and discrepancies were resolved. Home Medications Atorvastatin Calcium [Lipitor] 80 mg PO QHS 03/24/15 Gabapentin [Neurontin] 800 mg PO TIDCM 03/24/15 Metoprolol Tartrate [Lopressor (beta liza)] 25 mg PO BID 03/24/15 Omeprazole [Prilosec] 20 mg PO DAILY 03/24/15 Albuterol Aerosols [Ventolin Aerosols] 2.5 mg INHALATION Q6HWA.RT PRN 09/10/16 Diphenoxylate HCl/Atropine [Lomotil 2.5-0.025 mg Tablet] 1 each PO 4X/DAY PRN PRN 12/25/17 traMADol [Ultram] 50 mg PO Q6H PRN PRN 12/25/17 Amitriptyline HCl 50 mg PO QHS 02/18/20 Duloxetine Hcl [Cymbalta] 60 mg PO DAILY 02/18/20 Ferrous Sulfate 325 mg PO DAILY@0800 02/18/20 Hydrochlorothiazide 12.5 mg PO DAILY 02/18/20 Lidocaine [Lidoderm Patch] 1 patch TP DAILY 02/18/20 Nystatin Powder [Mycostatin Powder] 1 applic TOPICAL TID #2 bottle 02/20/20 Aspirin [Aspirin, Baby] 81 mg PO DAILY@0800 #0 03/11/20 Clopidogrel Bisulfate [Plavix] 75 mg PO DAILY #0 03/11/20 Insulin Lispro [Humalog KwikPen] See Protocol SUBCUT ACHS insuln.pen 03/11/20 Insulin Glargine,Hum.rec.anlog [Lantus] 30 unit SQ QHS #0 05/11/20 Lisinopril [Zestril] 5 mg PO DAILY tab 05/11/20
--- NOTE | 2020-05-11 10:20 | CASEMGMT ---
Received a phone call from Magali at [facility] and patient was approved. SW notified RN, cupola charger insulation, patient care secretary, and RN CM notified physician. Once all orders are received BRANDON will arrange transportation. Mandie ZUNIGA
--- NOTE | 2020-05-11 10:56 | CASEMGMT ---
BRANDON notified patient she was approved and will be heading back to [employer] [facility] today. She asked if anyone let her son know. SW told her SW tried and a recording said the number was not available. SW then tried to call from patient's room and it rang 2 times and then there was a fast busy signal. SW again tried 2 more times and same results. BRANDON will keep attempting to call patient's son. Mandie FAM MSW
--- NOTE | 2020-05-11 10:59 | CASEMGMT ---
Patient is now alert and oriented so SW completed a PHQ9 with patient due to her Stroke. She scored an 8 which indicates mild depression. SW told patient that SW will talk with Magali at [facility] and let her know patient would benefit from talking with Communications Attendant. SW did get a hold of patient's son and let him know patient will be heading back to [facility] today and she will get picked up at 1p. SW did call Magali at [facility] and let her know patient is depressed and would benefit from talking with a counselor or Communications Attendant. She said she would let their Communications Attendant know this information. Plan: d/c back to [facility] under skilled level of care. [facility] transported her via cot at 1p. Mandie FAM MSW
[2020-05-11 11:29] VITALS: BMI 45.8
--- NOTE | 2020-05-11 11:37 | NURSING ---
called report to Rebeca at [facility], transport to be here around 1300
[2020-05-11] MEDS: traMADol 50 MG Tablet PO (12:54)
[2020-05-11 12:55] LABS: Bedside Glucose 208 mg/dL (70-110)
--- NOTE | 2020-05-11 14:54 | DS.PCM_ITS ---
Discharge Date and Diagnosis Date of Admission: 05/06/20 Date of Discharge: 05/11/20 - Primary Discharge Diagnosis Acute Problems: 1. Acute CVA * left frontal and occipital CVA * per neuro: ASA and clopidogrel for 21 days, then clopidogrel * continue HIS * event monitor upon discharge 2. Carotid stenosis * 50% stenosis right CCA * follow up with vascular surgery as outpt. - Secondary Discharge Diagnosis Chronic Problems: Chronic Problems Stage II pressure ulcer of right buttock (Chronic) Stage II pressure ulcer of left buttock (Chronic) Obesity, morbid (Chronic) Decubitus ulcer of coccygeal region, stage 3 (Chronic) Tobacco abuse (Chronic) COPD (chronic obstructive pulmonary disease) (Chronic) Depression (Chronic) Dyslipidemia (Chronic) Pressure ulcer of left heel, stage 2 (Chronic) Stage III pressure ulcer of sacral region (Chronic) Diabetic neuropathy (Chronic) Peripheral vascular disease in diabetes mellitus (Chronic) Diabetes mellitus type II (Chronic) Coronary artery disease (Chronic) Status post CABG Cancer of vulva (Chronic) Status post radical vulvectomy and radiotherapy in January 2014 Hospital Course and Treatment Imaging Results: Clinical Impression(s) from Imaging Studies Brain CT 05/07/20 13:39 IMPRESSION: Chronic involutional changes of the brain. Electronically Signed: Andrea Burch, at 14:57 EDT , Service support , Brain MRI 05/08/20 10:51 IMPRESSION: 1. Acute cortical gyral ischemic infarct in the left frontal lobe and left occipital lobe. 2. Old cortical gyral ischemic infarcts with focal atrophy and encephalomalacia around the right precentral sulcus and in the right occipital lobe. Electronically Signed: Michoacano Lux MD at 13:59 EDT , Service support , ADDENDUM: 05/08/20 1426 IMPRESSION: 1. Acute cortical gyral ischemic infarct in the left frontal lobe and left occipital lobe. 2. Old cortical gyral ischemic infarcts with focal atrophy and encephalomalacia around the right precentral sulcus and in the right occipital lobe. N.B. : The above information has been verbally conveyed by Michoacano Lux MD to [place] [id number], on 05/08/2020 14:19:21 (ET). Electronically Signed: Michoacano Lux MD at 13:59 EDT , Service support , Consultations 05/06/20 02:58 Consult: Onc/Wound/court reporter Routine Comment: Operations: None, - - I&D Procedures: 2-D Echocardiogram - Unable to assess diastolic dysfunction. The estimated ejection fraction is 75 %. The left atrium is mildly enlarged. Moderate diffuse aortic valve thickening. The study was technically difficult. Contrast injection was performed. Summary of Care Provided: The patient is a 65 year old F presents with change in mental status. Patient presented to outside hospital with the symptoms. Patient was sent to the outside hospital and then sent to [facility] for further evaluation. Patient did have a CT of the brain that showed a nonocclusive 50% stenosis of the right carotid artery with plaque at the carotid bulb and the origin of the internal carotid arteries as well as a plaque at the origin of the right CCA. Patient was transferred over here where she had an MRI that showed acute cortical gyral ischemic infarct of the left frontal lobe and left occipital lobe. Patient was seen in consultation by [facility] tele-neurology. They recommended dual antiplatelet therapy as well as high intensity statin. Patient was already on dual antiplatelet therapy as well as high intensity statin prior to arrival. Patient continue with those. Patient recommend follow-up with neurology as outpatient. Patient would benefit from a event monitor or loop recorder develop evaluate for any arrhythmia which was not demonstrated during her hospitalization. [] - Physical Exam Vitals/I&O's: Vital Signs Temp Pulse Resp BP Pulse Ox 36.8 C 87 20 H 164/77 H 96 05/11/20 09:07 05/11/20 09:07 05/11/20 09:07 05/11/20 09:07 05/11/20 09:07 Oxygen Flow Rate (L/min) 97 Oxygen Delivery Method Room Air Weight: 125.1 kg Body Mass Index (BMI) 45.8 Finger Stick Blood Glucose 111 Intake and Output for Last 24 Hours 05/09/20 05/10/20 05/11/20 23:59 23:59 23:59 Intake Total 1400 / 1400 920 / 920 240 / 240 Output Total 500 / 500 660 / 660 200 / 200 Balance 900 / 900 260 / 260 40 / 40 General: - - confused, but more alert. afebrile Neck: No Nodes, Thyroid Normal Size and Texture Lungs: Clear to auscultation, Normal air movement, No rhonchi, No wheeze, No rales Cardiovascular: Regular rate, Regular Rhythm, Normal S1, Normal S2, No murmurs Abdomen: Bowel Sounds Present, Soft, Non Tender, Non-Distended Neurological: - - MS 4/4 throughout. Microbiology Past 72 Hours 05/06/20 22:21 Wound - Buttock Gram Stain - Final 05/06/20 22:21 Wound - Buttock Wound Culture - Final Proteus mirabilis Enterococcus faecalis Corynebacterium striatum 05/06/20 22:21 Wound - Buttock Anaerobic Culture - Preliminary Checking for anaerobes, further studies to follow. Laboratory Results 05/10/20 16:53: POC Glucose 235 H 05/10/20 21:28: POC Glucose 204 H 05/11/20 06:25: POC Glucose 191 H 05/11/20 12:51: POC Glucose 208 H Discharge Diet: Low fat/ Low Cholesterol, 1800 Calorie Control Diet Home Medications: Medications to take at Discharge Atorvastatin Calcium [Lipitor] 80 mg PO QHS 03/24/15 Gabapentin [Neurontin] 800 mg PO TIDCM 03/24/15 Metoprolol Tartrate [Lopressor (beta liza)] 25 mg PO BID 03/24/15 Omeprazole [Prilosec] 20 mg PO DAILY 03/24/15 Albuterol Aerosols [Ventolin Aerosols] 2.5 mg INHALATION Q6HWA.RT PRN 09/10/16 Diphenoxylate HCl/Atropine [Lomotil 2.5-0.025 mg Tablet] 1 each PO 4X/DAY PRN PRN 12/25/17 traMADol [Ultram] 50 mg PO Q6H PRN PRN 12/25/17 Amitriptyline HCl 50 mg PO QHS 02/18/20 Duloxetine Hcl [Cymbalta] 60 mg PO DAILY 02/18/20 Ferrous Sulfate 325 mg PO DAILY@0800 02/18/20 Hydrochlorothiazide 12.5 mg PO DAILY 02/18/20 Lidocaine [Lidoderm Patch] 1 patch TP DAILY 02/18/20 Nystatin Powder [Mycostatin Powder] 1 applic TOPICAL TID #2 bottle 02/20/20 Aspirin [Aspirin, Baby] 81 mg PO DAILY@0800 #0 03/11/20 Clopidogrel Bisulfate [Plavix] 75 mg PO DAILY #0 03/11/20 Insulin Lispro [Humalog KwikPen] See Protocol SUBCUT ACHS insuln.pen 03/11/20 Insulin Glargine,Hum.rec.anlog [Lantus] 30 unit SQ QHS #0 05/11/20 Lisinopril [Zestril] 5 mg PO DAILY tab 05/11/20 Primary Care Physician: Gera Snider III, MD [Primary Care Provider] - Within 2 Weeks Please Follow Up With: Juan Oliveira MD - neurology When: 1-2 months Disposition: Intermediate facility Minutes spent on discharge:: 35 Patient Condition:: Fair Medical Necessity - Tobacco Use Smoking Status: Unknown if ever smoked Tobacco Use: Cigarettes Meaningful Use Info Meaningful Use Diagnoses (Choose all that apply): Ischemic CVA - CVA Therapy Assessed for PT,OT and/or ST?: Yes - Ischemic Stroke Antithrombotic order at d/c?: Yes Dx of Atrial fib/flutter?: No Anticoagulant at discharge?: No Reason anticoagulant not ordered: Treatment not Indicated Statins at discharge?: Yes Primary Dx Acute Ischemic CVA?: Yes IV tPA ordered during stay?: No Reason IV t-PA not ordered: Procedure not Indicated Inpatient E&M: 18072 Disch Hosp
== END 2020-05-11 13:10 | disposition skilled nursing facility (03) | DRG 64 ==
PROVIDERS: Internal Medicine; Admitting Provider Student in an Organized Health Care Education/Training Program; PCP Family Medicine
DX: I63.89 Other cerebral infarction (principal); L89.154 Pressure ulcer of sacral region, stage 4; G81.94 Hemiplegia, unspecified affecting left nondominant side; Z68.42 Body mass index [BMI] 45.0-49.9, adult; L97.429 Non-pressure chronic ulcer of left heel and midfoot with unspecified severity; I65.21 Occlusion and stenosis of right carotid artery; R47.01 Aphasia; R29.707 NIHSS score 7; E66.01 Morbid (severe) obesity due to excess calories; E11.621 Type 2 diabetes mellitus with foot ulcer; J44.9 Chronic obstructive pulmonary disease, unspecified; F32.9 Major depressive disorder, single episode, unspecified; E78.5 Hyperlipidemia, unspecified; E11.40 Type 2 diabetes mellitus with diabetic neuropathy, unspecified; E11.51 Type 2 diabetes mellitus with diabetic peripheral angiopathy without gangrene; I25.10 Atherosclerotic heart disease of native coronary artery without angina pectoris; I10 Essential (primary) hypertension; D63.8 Anemia in other chronic diseases classified elsewhere; L89.322 Pressure ulcer of left buttock, stage 2; L89.312 Pressure ulcer of right buttock, stage 2; L89.622 Pressure ulcer of left heel, stage 2; S90.425A Blister (nonthermal), left lesser toe(s), initial encounter; X58.XXXA Exposure to other specified factors, initial encounter; F17.210 Nicotine dependence, cigarettes, uncomplicated; Z95.1 Presence of aortocoronary bypass graft; Z85.44 Personal history of malignant neoplasm of other female genital organs; Z79.4 Long term (current) use of insulin; Z79.02 Long term (current) use of antithrombotics/antiplatelets; Z79.82 Long term (current) use of aspirin; Z79.899 Other long term (current) drug therapy; Z86.73 Personal history of transient ischemic attack (TIA), and cerebral infarction without residual deficits
CPT/HCPCS: 36415; 70450; 70551; 80048; 80061; 81001; 82274; 82728; 82962; 83036; 83540; 83550; 84484; 85014; 85018; 85025; 85027; 86850; 86900; 86901; 86920; 86922; 87070; 87075; 87077; 87186; 87205; 87635; 87640; 92507; 92523; 92526; 92610; 93306; 94762; 94799; 97110; 97162; 97166; 97530; 97802; J7040; P9016; Q9957; A4216; C8929; U0003

== ENCOUNTER 2020-12-01 15:20 | Inpatient (IN) | payer MEDICARE, MEDICAID, SELFPAY ==
[2020-12-01] VITALS (8 sets, daily range): BP systolic 113–134; BP diastolic 44–105; PULSE 67–71; RESP 14–19; TEMP 36.6–36.8; O2SAT 95–100; BMI 45.8; BMI 42.3
--- NOTE | 2020-12-01 15:55 | EKG12_ITS ---
Test Reason : WOUND Blood Pressure : / mmHG Vent. Rate : 066 BPM Atrial Rate : 066 BPM P-R Int : 174 ms QRS Dur : 142 ms QT Int : 442 ms P-R-T Axes : 061 -14 028 degrees QTc Int : 463 ms Normal sinus rhythm Right bundle branch block Possible Lateral infarct , age undetermined Possible Inferior infarct , age undetermined Abnormal ECG Confirmed by JOSELYN BHAT, MAYCOL ([id number]), newspaper or periodical editor CJ MALLOY ([id number]) on 12/06/2020 9:38:34 AM Referred By: GARY Confirmed By:MORTEZA LAVES MD
[2020-12-01] MEDS: Ondansetron 4 MG/2 ML Vial IV (16:20)
[2020-12-01] MEDS: Morphine 4 MG/ML Syringe IV (16:20)
[2020-12-01 16:27] LABS: Absolute Lymphocyte Count 1.99 X10^3/uL (0.83-4.51); Absolute Neutrophil Count 5.3 X10^3/uL (2.0-7.7); Basophil# 0.05 X10^3/uL; Basophil% 0.6 % (0-1); Eosinophil# 0.33 X10^3/uL; Hematocrit 26.1 % (37-47); Hemoglobin 7.6 g/dL (12.0-15.0); Lymphocyte # 1.99 X10^3/ul (4.0); Lymphocyte % 23.9 % (19-41); Mean Corp Hgb Conc 29.1 g/dL (32-36); Mean Corpuscular Hgb 22.6 pg (27.0-32.0); Mean Corpuscular Volume 77.4 fL (81-99); Mean Platelet Vol. 9.6 fl (6.2-12.0); Monocyte# 0.64 X10^3/uL; Monocyte% 7.7 % (0-10); NRBC Flagged by Analyzer 0 % (0-5); Neutrophil % 63.4 % (47-70); Platelet Count 453 K/mm3 (150-450); RBC Distribution Width CV 15.2 % (11.6-14.6); RBC Distribution Width SD 42.8 fl (35.1-43.9); Red Blood Count 3.37 M/mm3 (4.2-5.4); White Blood Count 8.3 K/mm3 (4.4-11.0)
[2020-12-01 16:39] LABS: ALB/GLOB Ratio 0.4 RATIO (0.9-2.4); AST(SGOT) 18 U/L (15-37); Alanine Aminotransfer ALT/SGPT 19 U/L (13-56); Albumin, Serum 2.3 g/dL (3.2-5.0); Alkaline Phosphatase 116 U/L (45-117); Anion Gap 4 (5-15); BUN 39 mg/dL (7-18); BUN/Creat Ratio 40.8 RATIO (10-20); Chloride 104 mmol/L (98-107); Creatinine, Serum 0.96 mg/dL (0.55-1.02); EST Glomerular Filtration Rate 62 mL/min (>60); Est Glom Filt Rate - Afr Amer 75 mL/min (>60); Estimated Creatinine Clearance 49.78 ml/min; Globulin 5.7 g/dL (2.2-4.2); Glucose 150 mg/dL (74-106); Potassium 4.1 mmol/L (3.5-5.1); Sodium Level 137 mmol/L (136-145)
[2020-12-01 16:47] LABS: International Normalized Ratio 1.2; Prothrombin Time (Protime)PT. 15.1 SECONDS (11.7-14.9)
--- NOTE | 2020-12-01 16:47 | CM.ED ---
Social Work Received report from [facility] retail operations manager and also from [facility] clinical social worker. Patient was recently discharged from [facility] with [facility] services. Patient is being treated for wound care at home and there was concern by [facility] regarding patient's change in condition. Patient was reportedly fearful to come into the hospital sooner, until some things were taken care of with some paperwork relating to her apartment, as patient was reportedly concerned she could lose her home during hospitalization. Besides [facility] clinical social worker, Angel from [facility] is involved and has been out to see patient, encouraging patient to seek care in the hospital. Patient does have a son who is local and involved. -KENZIE Laguerre, MATERIALS RECYCLER
[2020-12-01 16:48] LABS: Partial Thromboplast Time 33.2 Seconds (24.1-36.2)
[2020-12-01 16:49] LABS: Lactic Acid 1.4 mmol/L (0.4-1.9)
--- NOTE | 2020-12-01 17:45 | RAD_ITS ---
STUDY: X-RAY CHEST REASON FOR EXAM: Female, 65 years old. Sepsis. TECHNIQUE: Single AP portable view of the chest. COMPARISON: 03/07/2020. FINDINGS: Telemetry wires overlie the chest. The lungs are clear and expanded. There is no demonstrated pleural abnormality. Sternal cerclage wires and vascular clips are present from a prior sternotomy and coronary artery bypass graft procedure (CABG). The heart is mildly enlarged but unchanged. Normal mediastinum and sridhar. Normal visualized pulmonary arteries. There is atherosclerotic calcification of the aortic arch with tortuosity. The thoracic spine is obscured by the mediastinum. There is degenerative osteoarthritis of the bilateral shoulders. There is no demonstrated abnormality of the visualized soft tissue structures of the upper abdomen. RAD/Chest 1 View (Portable) IMPRESSION: No acute cardiopulmonary disease or major interval change. Electronically Signed: Jhonny Conrad DO at 18:06 EST Tel [phone], Service support ,
--- NOTE | 2020-12-01 17:46 | ED.DCSUM_ITS ---
- ER Visit Summary Date of Service: 12/01/20 Chief Complaint: Odor from decubitus ulcer History of Present Illness: The patient is a [address] Gera Snider. She reports that she had surgery for decubitus ulcer in May 2020 at [facility]. She was at rehab until November 21 where and she had to leave because she was going to lose her Social Security. States that home health came out 2 days ago and told her there was an odor coming from her decubitus ulcer. They changed her wound VAC. Patient does not go to the wound clinic. She denies any fever or chills. She reports she has a chronic smoker's cough that is unchanged. She does report that she has pain at the decubitus ulcer that is chronic and unchanged. Physical Examination: Vitals: Stable. Afebrile. General: Well-nourished and well-developed. Head: Normocephalic atraumatic. Neck: Supple, no lymphadenopathy. No JVD. Nontender. Cardiovascular: Regular rate and rhythm. No murmurs. Respiratory: No respiratory distress. Clear to auscultation bilaterally. Abdominal: Soft, nontender, nondistended, normal bowel sounds. No guarding, rebound, or peritoneal signs. Back: Nontender. Extremities: Nontender, no edema. Skin: Wound VAC that extends linearly and is approximately 2 cm wide from lateral left buttock and medial left buttock. There is a piece of gauze on her right buttock. This is there is a foul odor with a large amount of purulent drainage on the reynaldo underneath her. Neurologic: Alert and oriented ?3. Cranial nerves II through XII are intact. Normal strength and sensation. Psych: Normal affect. Test Results: CBC shows an H&H of 7.6 and 26.1, platelets 453. Chem-7 shows a glucose 115 BUN of 39. LFTs show an albumin of 2.311 5.7. INR is 1.2. PTT is 33.2. Lactate is 1.4. Emergency Department Course and Treatment: Patient's wound is clearly infected. However, she refused a CT. She was given Zosyn, morphine, and Zofran IV. Treatment Plan: Patient was discussed with Dr. Sanchez. She will be admitted the hospital for for evaluation and treatment. Disposition: Admitted in stable condition. Impression: 1. Infected decubitus ulcer. 2. Anemia. This note was generated with [employer] dictation software. It may contain incorrect words, spelling, and punctuation that were not noted in review of the chart prior to signing ED Disposition - Plan for ED Patient: Referrals: Gera Snider III, MD [Primary Care Provider] -
--- NOTE | 2020-12-01 17:51 | NURSING ---
MED SURG ENRIQUE INFECTED DECUBITUS ULCER
--- NOTE | 2020-12-01 18:08 | PCM.HP.STD ---
Problem List (1) Acute on chronic anemia Status: Acute (2) Infected stage IV decubitus ulcer Status: Acute (3) Decubitus ulcer of coccygeal region, stage 3 Status: Chronic (4) COPD (chronic obstructive pulmonary disease) Status: Chronic (5) Diabetic neuropathy Status: Chronic (6) Peripheral vascular disease in diabetes mellitus Status: Chronic (7) Diabetes mellitus type II Status: Chronic (8) Coronary artery disease Status: Chronic Comment: Status post CABG History of Present Illness Date of Admission: 12/01/20 Chief Complaint: Odor from the decubitus ulcer. The patient is a 65 year old F with past medical history as mentioned above presented to the emergency room because of odor coming from the decubitus ulcer. The patient is very unpleasant and uncooperative. She was upset at everybody in the emergency department including physicians. She had surgery for decubitus ulcer on May [address] [facility], was discharged to a rehabilitation unit until November 21, 2020 when she decided to leave the rehab because she was going to lose her Social Security benefits. She stated that the home health nurse came this past Sunday, change the wound VAC and patient was informed that there is an order coming from the decubitus ulcer. Apparently, patient did not follow-up with the wound clinic after placement of the wound VAC. She complains of pain at the ulcer, dull aching pain, severe according to the patient although she has been talking. She refused to take the wound VAC off and take a look at the wound for me and for the ER physician. She refused to go to the CAT scan department because of pain although she was given morphine IV. She denied fever or chills. She had history of type 2 diabetes mellitus which has been under fair control with Lantus and Humalog, hemoglobin A1c was 7.1% on April,. She had history of hypertension which has been under control with HCTZ, lisinopril and metoprolol. She will history of CAD status post CABG, has been stable on aspirin, statins, Plavix, lisinopril and metoprolol. In the emergency department, her vital signs were stable, was afebrile. Routine blood work was remarkable for hemoglobin 7.6 g/dL. LFT was unremarkable. Lactic acid was normal. She is being admitted for infected stage IV decubitus ulcer and acute on chronic anemia. Past Medical History Past Medical History (Chronic Problems): Chronic Problems Stage II pressure ulcer of right buttock (Chronic) Stage II pressure ulcer of left buttock (Chronic) Obesity, morbid (Chronic) Decubitus ulcer of coccygeal region, stage 3 (Chronic) Tobacco abuse (Chronic) COPD (chronic obstructive pulmonary disease) (Chronic) Depression (Chronic) Dyslipidemia (Chronic) Pressure ulcer of left heel, stage 2 (Chronic) Stage III pressure ulcer of sacral region (Chronic) Diabetic neuropathy (Chronic) Peripheral vascular disease in diabetes mellitus (Chronic) Diabetes mellitus type II (Chronic) Coronary artery disease (Chronic) Status post CABG Cancer of vulva (Chronic) Status post radical vulvectomy and radiotherapy in January 2014 Allergies povidone-iodine [From Betadine] Allergy (Verified 03/07/20 15:27) Itching topical betadine prednisone Allergy (Verified 03/07/20 15:27) tiny mouth ulcers Home Medications: Ambulatory Orders Medication Instructions Recorded Atorvastatin Calcium [Lipitor] 80 mg PO QHS 03/24/15 Gabapentin [Neurontin] 800 mg PO TIDCM 03/24/15 Metoprolol Tartrate [Lopressor 25 mg PO BID 03/24/15 (beta liza)] Omeprazole [Prilosec] 20 mg PO DAILY 03/24/15 Albuterol Aerosols [Ventolin 2.5 mg INHALATION Q6HWA.RT PRN 09/10/16 Aerosols] Diphenoxylate HCl/Atropine 1 each PO 4X/DAY PRN PRN 12/25/17 [Lomotil 2.5-0.025 mg Tablet] traMADol [Ultram] 50 mg PO Q6H PRN PRN 12/25/17 Amitriptyline HCl 50 mg PO QHS 02/18/20 Duloxetine Hcl [Cymbalta] 60 mg PO DAILY 02/18/20 Ferrous Sulfate 325 mg PO DAILY@0800 02/18/20 Hydrochlorothiazide 12.5 mg PO DAILY 02/18/20 Lidocaine [Lidoderm Patch] 1 patch TP DAILY 02/18/20 Nystatin Powder [Mycostatin Powder] 1 applic TOPICAL TID #2 bottle 02/20/20 Aspirin [Aspirin, Baby] 81 mg PO DAILY@0800 #0 03/11/20 Clopidogrel Bisulfate [Plavix] 75 mg PO DAILY #0 03/11/20 Insulin Lispro [Humalog KwikPen] See Protocol SUBCUT ACHS 03/11/20 insuln.pen Insulin Glargine,Hum.rec.anlog 30 unit SQ QHS #0 05/11/20 [Lantus] Lisinopril [Zestril] 5 mg PO DAILY tab 05/11/20 Surgical History: cataract, cholecystectomy, coronary bypass surgery, tonsillectomy, - - Incision and drainage repeatedly of perirectal abscesses. 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, right hip surgery Psychiatric History: Depression FUNCTIONAL ANALYST History: No pertinent FUNCTIONAL ANALYST history Lives: With Family Smoking Status: Current every day smoker Alcohol: None Drugs: None - *Family History Maternal History Items: Cancer, Diabetes, Hypertension, Pulmonary Disease Paternal History Items: Cancer, Hypertension, Pulmonary Disease, No pertinent history Review of Systems Constitutional: Denies: Anorexia, Chills, Fever, Weakness Eyes: Denies: Blurred vision, Double vision, Drainage, Redness HEENT: Denies: Difficulty Hearing, Ear Pain, Eye Pain, Nasal Congestion, Sore Throat Cardiovascular: Denies: Chest Pain, Chest Pressure, Edema, Heaviness, Palpitations, Syncope Respiratory: Denies: Cough, Pleuritic Pain, Shortness of Breath, Sputum production, Wheezing Gastrointestinal: Denies: Abdominal Pain, Constipation, Diarrhea, Nausea, Vomiting Genitourinary: Denies: Dysuria, Frequency, Hematuria Musculoskeletal: Reports: Back Pain. Denies: Arm Pain, Foot Pain Skin: Denies: Dryness, Rash Neurological: Denies: Balance problems, Double vision, Change in Speech, Slurred speech, Confusion, Headaches, Incoordination Psychiatric: Denies: Anxiety, Depression Endocrine: Denies: Change in Body Habitus, Polydipsia, Polyuria VTE Information - Inpt Only VTE Present on Admission: No VTE Mechan Device Prophylaxis: None VTE Pharm Prophylaxis ordered?: Yes - Physical Exam Vitals/I&O's: Vital Signs Temp Pulse Resp BP Pulse Ox 98 F 71 16 123/56 H 98 12/01/20 17:55 12/01/20 17:55 12/01/20 17:55 12/01/20 17:55 12/01/20 17:55 Oxygen Delivery Method Nasal Cannula Weight: 266 lb 12.149 oz Body Mass Index (BMI) 45.8 Finger Stick Blood Glucose 111 Intake and Output for Last 24 Hours 11/29/20 11/30/20 12/01/20 23:59 23:59 23:59 Intake Total 100 / 100 Balance 100 / 100 General: Alert, Oriented x3, No apparent distress, Well developed HEENT: Atraumatic, PERRLA, EOMI, Normocephalic Oral: Moist Mucosa, No Gingival or Mucosal Lesions/ Ulcerations Neck: Supple, No JVD, Negative Carotid Bruits, Trachea Midline, Thyroid Normal Size and Texture Lungs: Clear to auscultation, No rhonchi, No wheeze, No rales, Diminished Cardiovascular: Regular rate, Regular Rhythm, Normal S1, Normal S2, PMI Normal Abdomen: Bowel Sounds Present, Soft, Non Tender, Non-Distended, No Hepato-splenomegaly, Obese Extremities: No clubbing, No cyanosis, Edema Skin: No rashes, Ulcer/ Wound, - - Patient refused to take off the wound VAC. Lymphatic: No Cervical, Supraclavicular, or Inguinal Adenopathy Neurological: Cranial nerves II-XII grossly intact, Motor Exam 5/5 strength throughout Psych/Mental Status: Normal Affect, Appropriate, Alert and oriented to time, place, person, mood and affect Laboratory Results 12/01/20 16:00: WBC 8.3, RBC 3.37 L, Hgb 7.6 L, Hct 26.1 L, MCV 77.4 L, MCH 22.6 L, MCHC 29.1 L, RDW Std Deviation 42.8, RDW Coeff of Ash 15.2 H, Plt Count 453 H, MPV 9.6, Immature Gran % (Auto) 0.400, Neut % (Auto) 63.4, Lymph % (Auto) 23.9, [place] % (Auto) 7.7, Eos % (Auto) 4.0, Baso % (Auto) 0.6, Absolute Neuts (auto) 5.3, Absolute Lymphs (auto) 1.99, Nucleated RBC % 0 12/01/20 16:00: PT 15.1 H, INR 1.2, APTT 33.2 12/01/20 16:00: Sodium 137, Potassium 4.1, Chloride 104, Carbon Dioxide 29.0, Anion Gap 4 L, BUN 39 H, Creatinine 0.96, Estim Creat Clear Calc 49.78, Est GFR (MDRD) Af Amer 75, Est GFR (MDRD) Non-Af 62, BUN/Creatinine Ratio 40.8 H, Glucose 150 H, Calcium 9.0, Total Bilirubin 0.20, AST 18, ALT 19, Alkaline Phosphatase 116, Total Protein 8.0, Albumin 2.3 L, Globulin 5.7 H, Albumin/Globulin Ratio 0.4 L 12/01/20 16:00: Lactic Acid 1.4 Clinical Impression(s) from Imaging Studies Chest X-Ray 12/01/20 17:45 IMPRESSION: No acute cardiopulmonary disease or major interval change. Electronically Signed: Jhonny ChristinaonDO at 18:06 EST Tel [phone], Service support , Assessment/Plan All Active Problems Acute on chronic anemia (Acute) Infected stage IV decubitus ulcer (Acute) This is a 65 years old female patient presented to the emergency room because of altered coming out of the decubitus ulcer, had surgery for decubitus ulcer back on May,, had wound VAC inserted recently and she was found to have infected decubitus ulcer as well as acute on chronic anemia. #1 stage IV infected sacral decubitus ulcer: In context of recent surgery on May, at [facility], status post wound VAC placement. Patient refused to take the wound VAC off, refused to go for acute CT scan to rule out abscess. Her vitals are stable, no evidence of sepsis or sepsis. Plan: Admit to MedSur floor, since blood culture, urine culture, wound culture, start IV Zosyn and vancomycin, MRSA wound screen, wound care nurse consult, plastic surgery consult, repeat CBC and BMP tomorrow morning, PT OT evaluation and treatment. #2 acute on chronic anemia: Baseline hemoglobin has been around 9 to 11 g/dL. Admission globin is 7.6. Patient denied any active bleeding. It is microcytic anemia. He had iron studies back on April,, serum iron, iron saturation are low. Plan: Transfuse 1 unit of packed RBCs, iron supplement, repeat CBC tomorrow morning. #3 type 2 diabetes mellitus: ADA diet, Accu-Cheks, insulin sliding scale, continue Lantus and Humalog. #4 CAD status post CABG: Stable, continue aspirin, statins, Plavix, lisinopril and metoprolol. #5 hypertension: Blood pressure stable, continue HCTZ, lisinopril and metoprolol. #6 hyperlipidemia: Continue statins. #7 COPD: Stable on room air. Chest x-ray showed no acute findings. Plan for albuterol as needed. #8 peripheral vascular disease: Stable, continue aspirin, Plavix and statins. #9 DVT prophylaxis: Subcu Lovenox. This note was generated with [employer] dictation software. It may contain incorrect words, spelling, and punctuation that were not noted in checking the note before signing. Inpatient E&M: 70461 Init Hosp L3
--- NOTE | 2020-12-01 18:23 | ED.RN ---
attempted to obtain wound culture, wound was covered and pt refused the dressing being taken off to obtain culture.
[2020-12-01] MEDS: 0.9% Normal Saline 1,000 ML 100 ML IV (20:23)
[2020-12-01 21:29] LABS: Hemoglobin A1c 9.2 % (3.8-5.6)
[2020-12-01] MEDS: HYDROmorphone 1 MG/ML Syringe IV (21:31)
[2020-12-01] MEDS: 0.9% Saline Lock 10 ML Syringe IV (21:32)
[2020-12-01] MEDS: Insulin Lispro 100 UNIT/ML INSULN.PEN SC (21:36)
[2020-12-01 22:06] LABS: Bedside Glucose 182 mg/dL (70-110)
--- NOTE | 2020-12-01 23:58 | PCM.RX.CS ---
Consult Pharmacy has been consulted to manage selected antiobiotic: Vancomycin Type of Consult: New start Suspected Infection: Skin/Soft tissue Labs: Sodium 137 mmol/L (136-145) 12/01/20 16:00 Potassium 4.1 mmol/L (3.5-5.1) 12/01/20 16:00 Chloride 104 mmol/L (98-107) 12/01/20 16:00 Carbon Dioxide 29.0 mmol/L (21.0-32.0) 12/01/20 16:00 Anion Gap 4 (5-15) L 12/01/20 16:00 BUN 39 mg/dL (7-18) H 12/01/20 16:00 Creatinine 0.96 mg/dL (0.55-1.02) 12/01/20 16:00 Est GFR (MDRD) Af Amer 75 mL/min (>60) 12/01/20 16:00 Est GFR (MDRD) Non-Af 62 mL/min (>60) 12/01/20 16:00 BUN/Creatinine Ratio 40.8 RATIO (10-20) H 12/01/20 16:00 Glucose 150 mg/dL (74-106) H 12/01/20 16:00 Goal Trough: 15-20 mcg/mL Pharmacy Plan for Drug Dosing: Pharmacy Service will continue to monitor and adjust dosing as required. Medications Vancomycin HCl 1,750 mg/ (Sodium Chloride) 535 mls @ 250 mls/hr IV Q12H [facility] Discontinued Medications Vancomycin HCl 2,000 mg/ (Sodium Chloride) 540 mls @ 250 mls/hr IV X1 ONE Stop: 12/01/20 22:39 Last Admin: 12/01/20 20:51 Dose: 250 mls/hr Documented by: Follow-Up Labs: Trough Vancomycin Labs to be done on [date and time ordered]: 12/03 @ 6201
[2020-12-02] VITALS (10 sets, daily range): BP systolic 113–160; BP diastolic 33–74; PULSE 62–86; RESP 16–18; TEMP 36.4–36.9; O2SAT 94–99
[2020-12-02 00:20] LABS: M R Staph aureus DNA By PCR Negative (Negative); Probe Check PASS; Specimen Processing Control PASS; Staph aureus DNA By PCR NEGATIVE (Negative)
[2020-12-02 07:05] LABS: Bedside Glucose 143 mg/dL (70-110)
[2020-12-02] MEDS: 0.9% Saline Lock 10 ML Syringe IV ×4 (07:47→21:37)
[2020-12-02] MEDS: HYDROmorphone 1 MG/ML Syringe IV ×3 (07:52→21:37)
--- NOTE | 2020-12-02 09:45 | CASEMGMT ---
ESTEFANIA BURKS Face to Face with patient for initial transition planning/care coordination assessment. ESTEFANIA BURKS introduced self and role at [facility]. Patient lying in bed, alert and oriented. Patient willing to participate in assessment and is able to answer all questions appropriately. Care providers, pharmacy, and demographics verified. Patient wishes to discharge home and adamant she will do so. Patient states he has no further needs or concerns at this time. She reports she wants to see school social worker Ezequiel YANG aware. CM to follow for discharge planning needs that may arise. PCP: Karuna Snider Specialists: Yon for her wound, but has not seen him yet. Preferred Pharmacy: [facility] in [place] Insurance: Medicare Prescription Benefit: yes Living Will/HPOA: yes, yes, son LNOK: son Living Arrangements: Pt lives in an apartment complex with her son. Her bedroom is the living room. She uses the elevator to get to her apt. She reports she is indep with dressing except her socks and shoes and has a BD SPECIAL EDUCATION TEACHER to help with bathing. Transportation: through her insurance DME/HHC: Patient reports she has a hospital bed, BSC, , rollator, TRF bench at home. She denies need for any further DME. Pt was recently in [place] and currently has [facility] HHS for SN, PT, OT and [employer] SPECIAL EDUCATION TEACHER. Disposition Plan: Patient wishes to return home with family support and HHC, follow up plans in place.
[2020-12-02] MEDS: Enoxaparin 40 MG/0.4 ML Syringe SC (10:02)
[2020-12-02] MEDS: Nystatin Powder 15gm Bottle 1 APPLIC TOPICAL ×2 (10:02→21:56)
[2020-12-02] MEDS: Glucerna Shake 120 ML LIQUID PO ×2 (10:05→15:27)
[2020-12-02] MEDS: Acetaminophen 325 MG Tablet 650 MG PO (10:06)
[2020-12-02] MEDS: oxyCODONE 5 MG Tablet PO (10:06)
--- NOTE | 2020-12-02 10:52 | NURSING ---
wound photo: bilateral heels
--- NOTE | 2020-12-02 10:53 | NURSING ---
wound photo: sacrum/buttocks
--- NOTE | 2020-12-02 12:10 | CASEMGMT ---
Social Work Note SW updated that pt would like to complete financial POA paperwork, paperwork emailed to this worker. BRANDON discussed with Danni NAYAK, pt will need to complete documents on own and before pt signs, a notary will need to witness pt signing documents. SW in to speak with pt. SW introduced self and role at [facility]. SW provided pt with POA paperwork and informed her to complete POA forms and then let RN know forms on done so this worker can have notary sign papers. SW informed pt to NOT sign documents until notary comes to pt's room to witness signature. Pt states understanding. BRANDON updated that pt has completed documents, need notary to sign. BRANDON updated Danni Carrion who will call notary. Kassie Larios ENDODONTIST, RESEARCH METHODS INSTRUCTOR
--- NOTE | 2020-12-02 12:36 | PN_ITS ---
<ModeMarisa COMMUNITY RELATIONS SPECIALIST - Last Filed: 12/02/20 12:52> Patient Problems: Active and Suspected Problems Acute on chronic anemia (Acute) Infected stage IV decubitus ulcer (Acute) Subjective: Patient seen and examined. Patient is irritable during exam, stating she will not speak to anyone else until she talks with a social insurance administrator regarding power of sports attorney. She denies specific symptoms or complaints. She refuses to let this provider examine her wound as dressings were changed earlier this morning. - Physical Exam Vitals/I&O's: Vital Signs Temp Pulse Resp BP Pulse Ox 98 F 74 18 144/53 H 96 12/02/20 10:12 12/02/20 10:12 12/02/20 10:12 12/02/20 10:12 12/02/20 10:12 Oxygen Flow Rate (L/min) 2 Oxygen Delivery Method Room Air Weight: 254 lb 6.4 oz Body Mass Index (BMI) 42.3 Finger Stick Blood Glucose 111 Intake and Output for Last 24 Hours 11/30/20 12/01/20 12/02/20 23:59 23:59 23:59 Intake Total 646.67 / 866.67 1873.33 / 1873.33 Output Total 1525 / 1525 Balance 646.67 / 316.67 348.33 / 348.33 General: Alert, Oriented x3, Cooperative HEENT: Atraumatic, PERRLA, EOMI, Normocephalic Neck: Supple, No JVD, Negative Carotid Bruits Lungs: Clear to auscultation, Normal air movement Cardiovascular: Regular rate, No murmurs Abdomen: Bowel Sounds Present, Soft, Non Tender, Non-Distended Extremities: No clubbing, No cyanosis, No edema, Capillary Refill Less than 3 Seconds Skin: No rashes, No breakdown, - - Decubitus ulcer, dressing intact Musculoskeletal: No Tenderness to Palpation of Joints or Extremities Neurological: Cranial nerves II-XII grossly intact, Neuro grossly intact Psych/Mental Status: Agitated, Flat Affect Microbiology Past 72 Hours 12/01/20 22:50 Wound Abcess - Other Gram Stain - Final Laboratory Results 12/01/20 16:00: WBC 8.3, RBC 3.37 L, Hgb 7.6 L, Hct 26.1 L, MCV 77.4 L, MCH 22.6 L, MCHC 29.1 L, RDW Std Deviation 42.8, RDW Coeff of Ash 15.2 H, Plt Count 453 H , MPV 9.6, Immature Gran % (Auto) 0.400, Neut % (Auto) 63.4, Lymph % (Auto) 23.9, [place] % (Auto) 7.7, Eos % (Auto) 4.0, Baso % (Auto) 0.6, Absolute Neuts (auto) 5.3, Absolute Lymphs (auto) 1.99, Nucleated RBC % 0 12/01/20 16:00: PT 15.1 H, INR 1.2, APTT 33.2 12/01/20 16:00: Sodium 137, Potassium 4.1, Chloride 104, Carbon Dioxide 29.0, Anion Gap 4 L, BUN 39 H, Creatinine 0.96, Estim Creat Clear Calc 49.78, Est GFR (MDRD) Af Amer 75, Est GFR (MDRD) Non-Af 62, BUN/Creatinine Ratio 40.8 H, Glucose 150 H, Calcium 9.0, Total Bilirubin 0.20, AST 18, ALT 19, Alkaline Phosphatase 116, Total Protein 8.0, Albumin 2.3 L, Globulin 5.7 H, Albumin/Globulin Ratio 0.4 L 12/01/20 16:00: Lactic Acid 1.4 12/01/20 16:00: Hemoglobin A1c 9.2 H 12/01/20 21:30: POC Glucose 182 H 12/01/20 22:50: S.aureus Protein A PCR NEGATIVE, MRSA (PCR) Negative 12/02/20 00:35: Blood Type O POSITIVE, Antibody Screen NEGATIVE, Crossmatch See Detail 12/02/20 06:57: POC Glucose 143 H Current Medications Acetaminophen (Acetaminophen 325 Mg Tablet) 650 mg PO Q6H PRN PRN PRN Reason: Pain Score 1-10/Temp > 100.7 F Last Admin: 12/02/20 10:06 Dose: 650 mg Documented by: Albuterol Sulfate (Albuterol 2.5 Mg/3 Ml Vial.Neb.) 2.5 mg INHALATION Q4H PRN PRN PRN Reason: Shortness of breath, wheezing Enoxaparin Sodium (Enoxaparin 40 Mg/0.4 Ml Syringe) 40 mg SC DAILY [facility] Last Admin: 12/02/20 10:02 Dose: 40 mg Documented by: Hydromorphone HCl (Hydromorphone 1 Mg/Ml Syringe) 1 mg IV Q4H PRN PRN PRN Reason: Pain Score 6-10 Last Admin: 12/02/20 12:07 Dose: 1 mg Documented by: Vancomycin IV Pharmacy to Dose (1 ea/ Sodium Chloride) 500 mls @ 250 mls/hr IV X1 PRN; Protocol PRN Reason: Rx to Dose Vancomycin HCl 1,750 mg/ (Sodium Chloride) 535 mls @ 250 mls/hr IV Q12H [facility] Last Admin: 12/02/20 11:20 Dose: 250 mls/hr Documented by: Piperacillin Sod/Tazobactam (Sod 3.375 gm/ Sodium Chloride) 50 mls @ 100 mls/hr IV Q8 [facility] Insulin Human Lispro (Insulin Lispro 100 Unit/Ml Insuln.Pen) 0 unit SC ACHS [facility]; Protocol Last Admin: 12/02/20 12:02 Dose: Not Given Documented by: Nutritional Formula (Lactose Free) (Glucerna Shake 120 Ml Liquid) 120 ml PO 4X/DAY [facility] Last Admin: 12/02/20 10:05 Dose: 120 ml Documented by: Nystatin (Nystatin Powder 15gm Bottle) 1 applic TOPICAL BID [facility]; Protocol Last Admin: 12/02/20 10:02 Dose: 1 applicatio Documented by: Ondansetron HCl (Ondansetron 4 Mg/2 Ml Vial) 4 mg IV Q8H PRN PRN PRN Reason: NAUSEA/VOMITING Oxycodone HCl (Oxycodone 5 Mg Tablet) 5 mg PO Q4H PRN PRN PRN Reason: Pain Score 4-5 Last Admin: 12/02/20 10:06 Dose: 5 mg Documented by: Senna/Docusate Sodium (Senna/Docusate Sodium 1 Tablet) 2 tablet PO BID PRN PRN PRN Reason: Constipation Sodium Chloride (0.9% Saline Lock 10 Ml Syringe) 10 - 40 ml IV UD PRN PRN Reason: SALINE FLUSH Last Admin: 12/02/20 12:09 Dose: 10 ml Documented by: Sodium Hypochlorite (Dakin's Geovanna Half Strength (=0.25%)) 1 applic TOPICAL DAILY [facility]; Protocol Zolpidem Tartrate (Zolpidem Tartrate 5 Mg Tablet) 5 mg PO QHS PRN PRN PRN Reason: INSOMNIA Medical Necessity - Tobacco Use Smoking Status: Current every day smoker Assessment/Plan All Active Problems Acute on chronic anemia (Acute) Infected stage IV decubitus ulcer (Acute) 1. 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 Dr. Mack consulted. Wound RN consult. Wound and blood cultures pending. Continue IV Zosyn and IV vancomycin. As needed pain regimen. Patient had surgical intervention May 2020 at [facility], wound VAC was placed at that time and patient refused to take wound VAC off. Recent discharge from SNF approximately 2 weeks ago. PT/OT. Feel patient will have difficulty caring for wound at home, recommend further SNF discussion. 2. Type 2 diabetes ofkyrxjn-Ejrj-[id number] with sliding scale insulin. Hemoglobin A1c 9.2%. 3. History of CVA-on aspirin, statin, Plavix. 4. Carotid stenosis-on aspirin, statin, Plavix. 5. CAD with history of CABG-continue medical management. On aspirin, Plavix, statin, lisinopril, metoprolol. 6. Chronic anemia-at baseline, trend CBC. 7. Chronic COPD-no acute exacerbation. As needed albuterol aerosol. 8. Hypertension-stable, continue lisinopril, metoprolol, HCTZ. 9. Hyperlipidemia-continue statin. 10. PVD-on aspirin, statin. DVT prophylaxis-Lovenox subcu This patient was seen by SARAH Cadena under the supervision of Dr. Lopez. <West Lpoez - Last Filed: 12/02/20 15:49> Subjective: Seen and examined. Discussed with the nursing staff. Patient is refusing morning labs. Patient also very particular about her treatment and monitoring. She easily gets irritable Physical exam General: Alert, Oriented x3, morbid obesity BMI 42.3 kg/m? HEENT: Atraumatic, PERRLA, EOMI, Normocephalic Oral: No Gingival or Mucosal Lesions/ Ulcerations Neck: Supple, No JVD, Negative Carotid Bruits Lungs: Air entry diminished in bilateral lung bases. No crepitation/rhonchi Cardiovascular: Regular rate, Regular Rhythm, Normal S1, Normal S2, No murmurs Abdomen: Bowel Sounds Present, Soft, Non Tender, Non-Distended : No renal angle tenderness. No suprapubic tenderness. Extremities: No edema, Capillary Refill Less than 3 Seconds Skin: Stage IV purulent sacral decubitus ulcer, stage II right ischium decubitus ulcer. Bilateral heel stage I cubitus ulcer. Musculoskeletal: Bilateral lower extremity weakness, 3/5, chronic. No Tenderness to Palpation of Joints or Extremities Neurological: Cranial nerves II-XII grossly intact, Deep Tendon Reflexes 2+/4 and Symmetrical, Neuro grossly intact Psych/Mental Status: Irritable, uncooperative - Physical Exam Vitals/I&O's: Vital Signs Temp Pulse Resp BP Pulse Ox 97.8 F 62 18 130/39 H 97 12/02/20 15:34 12/02/20 15:34 12/02/20 15:34 12/02/20 15:34 12/02/20 15:34 Oxygen Flow Rate (L/min) 2 Oxygen Delivery Method Room Air Weight: 254 lb 6.4 oz Body Mass Index (BMI) 42.3 Finger Stick Blood Glucose 111 Intake and Output for Last 24 Hours 11/30/20 12/01/20 12/02/20 23:59 23:59 23:59 Intake Total 646.67 / 866.67 3668.33 / 3668.33 Output Total 1875 / 1875 Balance 646.67 / 316.67 1793.33 / 1793.33 Microbiology Past 72 Hours 12/01/20 22:50 Wound Abcess - Other Gram Stain - Final 12/01/20 22:50 Wound Abcess - Other Wound Culture - Preliminary Gram negative [place] Laboratory Results 12/01/20 16:00: WBC 8.3, RBC 3.37 L, Hgb 7.6 L, Hct 26.1 L, MCV 77.4 L, MCH 22.6 L, MCHC 29.1 L, RDW Std Deviation 42.8, RDW Coeff of Ash 15.2 H, Plt Count 453 H , MPV 9.6, Immature Gran % (Auto) 0.400, Neut % (Auto) 63.4, Lymph % (Auto) 23.9, [place] % (Auto) 7.7, Eos % (Auto) 4.0, Baso % (Auto) 0.6, Absolute Neuts (auto) 5.3, Absolute Lymphs (auto) 1.99, Nucleated RBC % 0 12/01/20 16:00: PT 15.1 H, INR 1.2, APTT 33.2 12/01/20 16:00: Sodium 137, Potassium 4.1, Chloride 104, Carbon Dioxide 29.0, Anion Gap 4 L, BUN 39 H, Creatinine 0.96, Estim Creat Clear Calc 49.78, Est GFR (MDRD) Af Amer 75, Est GFR (MDRD) Non-Af 62, BUN/Creatinine Ratio 40.8 H, Glucose 150 H, Calcium 9.0, Total Bilirubin 0.20, AST 18, ALT 19, Alkaline Phosphatase 116, Total Protein 8.0, Albumin 2.3 L, Globulin 5.7 H, Albumin/Globulin Ratio 0.4 L 12/01/20 16:00: Lactic Acid 1.4 12/01/20 16:00: Hemoglobin A1c 9.2 H 12/01/20 21:30: POC Glucose 182 H 12/01/20 22:50: S.aureus Protein A PCR NEGATIVE, MRSA (PCR) Negative 12/02/20 00:35: Blood Type O POSITIVE, Antibody Screen NEGATIVE, Crossmatch See Detail 12/02/20 06:57: POC Glucose 143 H Current Medications Acetaminophen (Acetaminophen 325 Mg Tablet) 650 mg PO Q6H PRN PRN PRN Reason: Pain Score 1-10/Temp > 100.7 F Last Admin: 12/02/20 10:06 Dose: 650 mg Documented by: Albuterol Sulfate (Albuterol 2.5 Mg/3 Ml Vial.Neb.) 2.5 mg INHALATION Q4H PRN PRN PRN Reason: Shortness of breath, wheezing Enoxaparin Sodium (Enoxaparin 40 Mg/0.4 Ml Syringe) 40 mg SC DAILY [facility] Last Admin: 12/02/20 10:02 Dose: 40 mg Documented by: Hydromorphone HCl (Hydromorphone 1 Mg/Ml Syringe) 1 mg IV Q4H PRN PRN PRN Reason: Pain Score 6-10 Last Admin: 12/02/20 12:07 Dose: 1 mg Documented by: Vancomycin IV Pharmacy to Dose (1 ea/ Sodium Chloride) 500 mls @ 250 mls/hr IV X1 PRN; Protocol PRN Reason: Rx to Dose Vancomycin HCl 1,750 mg/ (Sodium Chloride) 535 mls @ 250 mls/hr IV Q12H [facility] Last Infusion: 12/02/20 13:37 Dose: Infused Documented by: Piperacillin Sod/Tazobactam (Sod 3.375 gm/ Sodium Chloride) 50 mls @ 100 mls/hr IV Q8 [facility] Last Admin: 12/02/20 15:27 Dose: 100 mls/hr Documented by: Insulin Human Lispro (Insulin Lispro 100 Unit/Ml Insuln.Pen) 0 unit SC ACHS [facility]; Protocol Last Admin: 12/02/20 12:02 Dose: Not Given Documented by: Nutritional Formula (Lactose Free) (Glucerna Shake 120 Ml Liquid) 120 ml PO 4X/DAY [facility] Last Admin: 12/02/20 15:27 Dose: 120 ml Documented by: Nystatin (Nystatin Powder 15gm Bottle) 1 applic TOPICAL BID [facility]; Protocol Last Admin: 12/02/20 10:02 Dose: 1 applicatio Documented by: Ondansetron HCl (Ondansetron 4 Mg/2 Ml Vial) 4 mg IV Q8H PRN PRN PRN Reason: NAUSEA/VOMITING Oxycodone HCl (Oxycodone 5 Mg Tablet) 5 mg PO Q4H PRN PRN PRN Reason: Pain Score 4-5 Last Admin: 12/02/20 10:06 Dose: 5 mg Documented by: Senna/Docusate Sodium (Senna/Docusate Sodium 1 Tablet) 2 tablet PO BID PRN PRN PRN Reason: Constipation Sodium Chloride (0.9% Saline Lock 10 Ml Syringe) 10 - 40 ml IV UD PRN PRN Reason: SALINE FLUSH Last Admin: 12/02/20 15:29 Dose: 10 ml Documented by: Sodium Hypochlorite (Dakin's Geovanna Half Strength (=0.25%)) 1 applic TOPICAL DAILY [facility]; Protocol Zolpidem Tartrate (Zolpidem Tartrate 5 Mg Tablet) 5 mg PO QHS PRN PRN PRN Reason: INSOMNIA Assessment/Plan This patient was seen in conjunction with COMMUNITY RELATIONS SPECIALISTMarisa. I have independently interviewed and examined the patient and reviewed pertinent history, examination findings, laboratory and plan of management. I have reviewed the note and agree with the documented findings with the few additional points. In brief, patient is admitted for management of his stage IV recurrent sacral decubitus ulcer along with right buttock stage II decubitus ulcer, stage II right ischium decubitus ulcer and bilateral heel unstageable. Patient is type 2 diabetes mellitus. She had radiation treatment for vulvar cancer. She has surgery for decubitus ulcer in May 2020 in [facility] and after that she was in rehab until November 2020. She also had wound VAC but she is noncooperative to the treatment. Type 2 diabetes mellitus: A1c 9.2%. Needs good glucose control. Accu-Cheks between 140 to 180 mg/dL, acceptable range. Other comorbidities as mentioned above including history of a stroke carotid stenosis suggestive of peripheral arterial disease. Coronary artery disease, COPD. I have discussed my assessment with Marisa SOLORZANO and orders have been reviewed. Inpatient E&M: 85701 Subs Hosp L2
--- NOTE | 2020-12-02 15:00 | CON.PCM_ITS ---
Reason for Consult Date of Consultation: 12/02/20 Reason for Consultation: Sacral pressure sore. REFERRING PHYSICIAN: Dr. Sanchez. DISPATCHER AUTOMOBILE RENTAL: Dr. Mack. History of Present Illness: The patient is a 65 year old F who was admitted with increasing drainage and odor from a sacral pressure sore. She had surgery for this pressure sore in May 2020 at [facility] and was discharged to a rehabilitation unit until November 21, 2020 when she decided to leave the rehab because she was going to lose her Social Security benefits. She stated that the home health nurse came this past Sunday to change the wound VAC and patient was informed that there was ab odor coming from the sacral pressure sore. Patient did not follow-up with the wound clinic after placement of the wound VAC and has a history of noncompliance and uncooperativeness. She complains of pain in the pressure sore. She denied fever or chills. Upon admission she was afebrile. Her WBC was 8.3. Her Hgb was 7.6. She received PRBC. The Lactate was 1.4. HgbA1c was 9.2. She was placed on Vancomycin and Zosyn. Wound care was started with Dakin's dressing changes. Wound culture showed preliminary Gram negative [place]. I was asked to evaluate this patient for surgical options for treatment. Past Medical History Past Medical History (Chronic Problems): Chronic Problems Osteomyelitis of pelvic region (Chronic) Pressure ulcer of sacral region, stage 4 (Chronic) Stage II pressure ulcer of right buttock (Chronic) Stage II pressure ulcer of left buttock (Chronic) Obesity, morbid (Chronic) Decubitus ulcer of coccygeal region, stage 3 (Chronic) Tobacco abuse (Chronic) COPD (chronic obstructive pulmonary disease) (Chronic) Depression (Chronic) Dyslipidemia (Chronic) Pressure ulcer of left heel, stage 2 (Chronic) Stage III pressure ulcer of sacral region (Chronic) Diabetic neuropathy (Chronic) Peripheral vascular disease in diabetes mellitus (Chronic) Diabetes mellitus type II (Chronic) Coronary artery disease (Chronic) Status post CABG Cancer of vulva (Chronic) Status post radical vulvectomy and radiotherapy in January 2014 Allergies povidone-iodine [From Betadine] Allergy (Verified 03/07/20 15:27) Itching topical betadine prednisone Allergy (Verified 03/07/20 15:27) tiny mouth ulcers Home Medications: Ambulatory Orders Medication Instructions Recorded Atorvastatin Calcium [Lipitor] 20 mg PO QHS 03/24/15 Metoprolol Tartrate [Lopressor 25 mg PO BID 03/24/15 (beta liza)] Omeprazole [Prilosec] 20 mg PO DAILY 03/24/15 Albuterol Aerosols [Ventolin 2.5 mg INHALATION Q6HWA.RT PRN 09/10/16 Aerosols] traMADol [Ultram] 50 mg PO Q8H PRN PRN 12/25/17 Ferrous Sulfate 325 mg PO DAILY@0800 02/18/20 Amlodipine [Norvasc] 2.5 mg PO DAILY 12/02/20 Aspirin [Aspirin, Baby] 81 mg PO DAILY@0800 12/02/20 Clopidogrel Bisulfate [Plavix] 75 mg PO DAILY 12/02/20 Furosemide [Lasix] 40 mg PO DAILY 12/02/20 Gabapentin 600 mg PO BID 12/02/20 Insulin Glargine,Hum.rec.anlog 68 unit SQ QHS 12/02/20 [Lantus] Insulin Lispro [Humalog KwikPen] See Protocol SC ACHS 12/02/20 Memantine HCl 5 mg PO DAILY 12/02/20 Nystatin Powder [Mycostatin Powder] 1 applic TOPICAL TID 12/02/20 Venlafaxine HCl [Effexor Xr] 75 mg PO DAILY 12/02/20 busPIRone [Buspar] 5 mg PO BID 12/02/20 Surgical History: cataract, cholecystectomy, coronary bypass surgery, tonsillectomy, - - Incision and drainage repeatedly of perirectal abscesses. 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, right hip surgery Psychiatric History: Depression DIRECTOR SOCIAL History: No pertinent DIRECTOR SOCIAL history Lives: With Family Smoking Status: Current every day smoker Alcohol: None Drugs: None - *Family History Maternal History Items: Cancer, Diabetes, Hypertension, Pulmonary Disease Paternal History Items: Cancer, Hypertension, Pulmonary Disease, No pertinent history Review of Systems Comment: Constitutional: Denies: Anorexia, Chills, Fever, Weakness. Eyes: Denies: Blurred vision, Double vision, Drainage, Redness. HEENT: Denies: Difficulty Hearing, Ear Pain, Eye Pain, Nasal Congestion, Sore Throat. Cardiovascular: Denies: Chest Pain, Chest Pressure, Edema, Heaviness, Palpitations, Syncope. Respiratory: Denies: Cough, Pleuritic Pain, Shortness of Breath, Sputum production, Wheezing. Gastrointestinal: Denies: Abdominal Pain, Constipation, Diarrhea, Nausea, Vomiting. Genitourinary: Denies: Dysuria, Frequency, Hematuria. Musculoskeletal: Reports: Back Pain. Denies: Arm Pain, F oot Pain. Skin: Denies: Dryness, Rash. Neurological: Denies: Balance problems, Double vision, Change in Speech, Slurred speech, Confusion, Headaches, Incoordination. Psychiatric: Denies: Anxiety, Depression. Endocrine: Denies: Change in Body Habitus, Polydipsia, Polyuria Patient Problems: Active and Suspected Problems Acute on chronic anemia (Acute) Infected stage IV decubitus ulcer (Acute) - Physical Exam Vitals/I&O's: General: Alert, Oriented x3. HEENT: PERRLA, EOMI. Oral: Moist Mucosa. Neck: Supple, Nontender. No cervical adenopathy. Lungs: Clear to auscultation. Cardiovascular: Regular rate, Regular Rhythm. Abdomen: Soft, Non-Distended. Extremities: No clubbing, No cyanosis, Edema. Back: On the lower back and sacral area is a pressure sore that measures 4 x 4 x 1 cm. Exudate is present. There is undermining toward the left buttock of 5 cm. Some nonpurulent drainage seen. Mild odor present. The exudate extends down to the bone. No bone is exposed at this time. It is a Stage IV pressure sore. Lymphatic: No Cervical, Supraclavicular, or Inguinal Adenopathy Neurological: Cranial nerves II-XII grossly intact. Psych/Mental Status: Normal Affect, Appropriate. Vital Signs Temp Pulse Resp BP Pulse Ox 98 F 74 18 144/53 H 96 12/02/20 10:12 12/02/20 10:12 12/02/20 10:12 12/02/20 10:12 12/02/20 10:12 Oxygen Flow Rate (L/min) 2 Oxygen Delivery Method Room Air Weight: 254 lb 6.4 oz Body Mass Index (BMI) 42.3 Finger Stick Blood Glucose 111 Intake and Output for Last 24 Hours 11/30/20 12/01/20 12/02/20 23:59 23:59 23:59 Intake Total 646.67 / 866.67 3668.33 / 3668.33 Output Total 1875 / 1875 Balance 646.67 / 316.67 1793.33 / 1793.33 Microbiology Past 72 Hours 12/01/20 22:50 Wound Abcess - Other Gram Stain - Final 12/01/20 22:50 Wound Abcess - Other Wound Culture - Preliminary Gram negative j[place] Laboratory Results 12/01/20 16:00: WBC 8.3, RBC 3.37 L, Hgb 7.6 L, Hct 26.1 L, MCV 77.4 L, MCH 22.6 L, MCHC 29.1 L, RDW Std Deviation 42.8, RDW Coeff of Ash 15.2 H, Plt Count 453 H, MPV 9.6, Immature Gran % (Auto) 0.400, Neut % (Auto) 63.4, Lymph % (Auto) 23.9, [place] % (Auto) 7.7, Eos % (Auto) 4.0, Baso % (Auto) 0.6, Absolute Neuts (auto) 5.3, Absolute Lymphs (auto) 1.99, Nucleated RBC % 0 12/01/20 16:00: PT 15.1 H, INR 1.2, APTT 33.2 12/01/20 16:00: Sodium 137, Potassium 4.1, Chloride 104, Carbon Dioxide 29.0, Anion Gap 4 L, BUN 39 H, Creatinine 0.96, Estim Creat Clear Calc 49.78, Est GFR (MDRD) Af Amer 75, Est GFR (MDRD) Non-Af 62, BUN/Creatinine Ratio 40.8 H, Glucose 150 H, Calcium 9.0, Total Bilirubin 0.20, AST 18, ALT 19, Alkaline Phosphatase 116, Total Protein 8.0, Albumin 2.3 L, Globulin 5.7 H, Albumin/Globulin Ratio 0.4 L 12/01/20 16:00: Lactic Acid 1.4 12/01/20 16:00: Hemoglobin A1c 9.2 H 12/01/20 21:30: POC Glucose 182 H 12/01/20 22:50: S.aureus Protein A PCR NEGATIVE, MRSA (PCR) Negative 12/02/20 00:35: Blood Type O POSITIVE, Antibody Screen NEGATIVE, Crossmatch See Detail 12/02/20 06:57: POC Glucose 143 H Current Medications Acetaminophen (Acetaminophen 325 Mg Tablet) 650 mg PO Q6H PRN PRN PRN Reason: Pain Score 1-10/Temp > 100.7 F Last Admin: 12/02/20 10:06 Dose: 650 mg Documented by: Albuterol Sulfate (Albuterol 2.5 Mg/3 Ml Vial.Neb.) 2.5 mg INHALATION Q4H PRN PRN PRN Reason: Shortness of breath, wheezing Enoxaparin Sodium (Enoxaparin 40 Mg/0.4 Ml Syringe) 40 mg SC DAILY [facility] Last Admin: 12/02/20 10:02 Dose: 40 mg Documented by: Hydromorphone HCl (Hydromorphone 1 Mg/Ml Syringe) 1 mg IV Q4H PRN PRN PRN Reason: Pain Score 6-10 Last Admin: 12/02/20 12:07 Dose: 1 mg Documented by: Vancomycin IV Pharmacy to Dose (1 ea/ Sodium Chloride) 500 mls @ 250 mls/hr IV X1 PRN; Protocol PRN Reason: Rx to Dose Vancomycin HCl 1,750 mg/ (Sodium Chloride) 535 mls @ 250 mls/hr IV Q12H [facility] Last Infusion: 12/02/20 13:37 Dose: Infused Documented by: Piperacillin Sod/Tazobactam (Sod 3.375 gm/ Sodium Chloride) 50 mls @ 100 mls/hr IV Q8 [facility] Insulin Human Lispro (Insulin Lispro 100 Unit/Ml Insuln.Pen) 0 unit SC ACHS [facility]; Protocol Last Admin: 12/02/20 12:02 Dose: Not Given Documented by: Nutritional Formula (Lactose Free) (Glucerna Shake 120 Ml Liquid) 120 ml PO 4X/DAY [facility] Last Admin: 12/02/20 10:05 Dose: 120 ml Documented by: Nystatin (Nystatin Powder 15gm Bottle) 1 applic TOPICAL BID [facility]; Protocol Last Admin: 12/02/20 10:02 Dose: 1 applicatio Documented by: Ondansetron HCl (Ondansetron 4 Mg/2 Ml Vial) 4 mg IV Q8H PRN PRN PRN Reason: NAUSEA/VOMITING Oxycodone HCl (Oxycodone 5 Mg Tablet) 5 mg PO Q4H PRN PRN PRN Reason: Pain Score 4-5 Last Admin: 12/02/20 10:06 Dose: 5 mg Documented by: Senna/Docusate Sodium (Senna/Docusate Sodium 1 Tablet) 2 tablet PO BID PRN PRN PRN Reason: Constipation Sodium Chloride (0.9% Saline Lock 10 Ml Syringe) 10 - 40 ml IV UD PRN PRN Reason: SALINE FLUSH Last Admin: 12/02/20 12:09 Dose: 10 ml Documented by: Sodium Hypochlorite (Dakin's Geovanna Half Strength (=0.25%)) 1 applic TOPICAL DAILY [facility]; Protocol Zolpidem Tartrate (Zolpidem Tartrate 5 Mg Tablet) 5 mg PO QHS PRN PRN PRN Reason: INSOMNIA Assessment/Plan All Active Problems Acute on chronic anemia (Acute) Infected stage IV decubitus ulcer (Acute) 1. Infected sacral pressure sore, Stage IV. 2. Clinical osteomyelitis. 3. Diabetes mellitus. 4. Anemia of chronic disease, acute on chronic. 5. Smoker. Continue IV Vancomycin and Zosyn. Preliminary wound culture shows Gram negative [place]. Continue Dakin's dressing changes. Patient needs a specialty bed such as a low air loss bed. No recent CT Pelvis has been done, so will order one preoperatively to look for osteomyelitis. This pressure sore will not heal without surgical intervention. Recommend to the patient to proceed with surgical excision of this infected sacral pressure sore with partial ostectomy for osteomyelitis. Postoperatively will place the VAC. She has had the VAC before. A positive culture will necessitate antibiotic therapy. May need termite exterminator helper IV antibiotics through the placement of a PICC line. HgbA1c is 9.2. Before considering elective wound closure in the future with a myocutaneous or fasciocutaneous flaps, the HgbA1c needs to be less than 8. Anticipate increased metabolic demands from the infection and the pressure sore. Will check a Prealbumin and encourage nutritional supplementation with protein to help the healing process. She has anemia of chronic disease, acute on chronic. Her admission Hgb was 7.6. She received PRBC. After surgery, if there is stool contamination in the pressure sore, then she would need to be evaluated by General Surgery for a diverting colostomy. Patient was uncooperative and stated she did not want surgery at this time. I told her it was not an emergency but it needs to be done since it won't heal without surgery. With continued wound care with Dakin's dressing changes and antibiotics, she can followup at the [facility] after discharge. I can then monitor the pressure sore as an outpatient and schedule surgical excision at the appropriate time. Patient was informed of the risks and complications of the procedure including alternatives to surgery. These were discussed with the patient personally. Patient voices understanding and wants to think about when she wants to proceed with the surgery. Encouraged patient to stop smoking as it may have deleterious effects on wound healing. We discussed the current risks associated with COVID-19. While it is understood that there is a community spread of COVID-19, the risk of pawel COVID-19 while at [facility] ([facility]) is very low; however, the risk cannot be completely mitigated because of the community spread of the disease. We di scussed in detail the risk of exposure to and/or potential harm posed by the COVID-19 virus with having a surgery/procedure at this time versus the risk of delaying the surgery/procedure. It is not possible to know either the risk of delaying the surgery or procedure or chance of getting an infection with perfect accuracy. The patient voices understanding, but does not want surgery at this time and will decide on surgery at a later date. Patient was notified that we will need to comply with any screening or testing [facility] wishes to perform or that surgery may be delayed for any positive results. Discussed with the patient that I was tested for COVID-19 on 04/08/20 which was negative and on 04/22/20 which was negative and on 05/06/20 which was negative and on 05/20/20 which was negative and on 06/03/20 which was negative and on 06/24/20 which was negative and on 07/15/20 which was negative and on 08/19/20 which was negative and on 09/09/20 which was negative and on 09/28/20 which was negative. My testing regimen at this time is to be COVID-19 tested every 2 weeks or so. I received the COVID-19 vaccine (Moderna) on 10/06/20 and the second dose was received on 11/03/20. Inpatient E&M: 88286 Init Hosp L2 - ICD-10 - L89.154, M86.9, E11.9, D64.9, F17.200
[2020-12-02] MEDS: Insulin Lispro 100 UNIT/ML INSULN.PEN SC ×2 (17:50→21:52)
[2020-12-02] MEDS: busPIRone 5 MG Tablet PO (21:50)
[2020-12-02] MEDS: Gabapentin 600 MG Tablet PO (21:50)
[2020-12-02] MEDS: Atorvastatin Calcium 20 MG Tablet PO (21:50)
[2020-12-02] MEDS: Metoprolol Tartrate 25 MG Tablet PO (21:51)
[2020-12-02] MEDS: traMADol 50 MG Tablet PO (22:56)
[2020-12-03] VITALS (8 sets, daily range): BP systolic 130–156; BP diastolic 36–88; PULSE 66–89; RESP 16–18; TEMP 36.5–37.2; O2SAT 97–100
[2020-12-03] MEDS: Insulin Lispro 100 UNIT/ML INSULN.PEN SC ×4 (06:35→22:04)
[2020-12-03] MEDS: HYDROmorphone 1 MG/ML Syringe IV (10:19)
[2020-12-03] MEDS: Ondansetron 4 MG/2 ML Vial IV (10:32)
[2020-12-03 10:59] LABS: Absolute Lymphocyte Count 1.56 X10^3/uL (0.83-4.51); Absolute Neutrophil Count 4.3 X10^3/uL (2.0-7.7); Basophil# 0.03 X10^3/uL; Basophil% 0.5 % (0-1); Eosinophil# 0.23 X10^3/uL; Eosinophils% 3.5 % (0-5); Hematocrit 30.3 % (37-47); Hemoglobin 8.8 g/dL (12.0-15.0); Lymphocyte # 1.56 X10^3/ul (4.0); Lymphocyte % 23.4 % (19-41); Mean Corpuscular Hgb 23.8 pg (27.0-32.0); Mean Corpuscular Volume 81.9 fL (81-99); Mean Platelet Vol. 9.4 fl (6.2-12.0); Monocyte# 0.54 X10^3/uL; Monocyte% 8.1 % (0-10); NRBC Flagged by Analyzer 0 % (0-5); Neutrophil # 4.27 X10^3/uL (2.7-7.7); Platelet Count 348 K/mm3 (150-450); RBC Distribution Width CV 16.2 % (11.6-14.6); RBC Distribution Width SD 48.2 fl (35.1-43.9); White Blood Count 6.7 K/mm3 (4.4-11.0)
[2020-12-03 11:32] LABS: Anion Gap 5 (5-15); BUN 16 mg/dL (7-18); BUN/Creat Ratio 22.2 RATIO (10-20); Calcium,Total 8.6 mg/dL (8.5-10.1); Chloride 109 mmol/L (98-107); Creatinine, Serum 0.72 mg/dL (0.55-1.02); EST Glomerular Filtration Rate 86 mL/min (>60); Est Glom Filt Rate - Afr Amer 104 mL/min (>60); Glucose 224 mg/dL (74-106); Sodium Level 140 mmol/L (136-145)
[2020-12-03 11:35] LABS: Vancomycin, Trough Level 23.4 ug/mL (5.0-15.0)
[2020-12-03] MEDS: Venlafaxine XR 75 MG Capsule PO (11:45)
[2020-12-03] MEDS: Gabapentin 600 MG Tablet PO ×2 (11:46→22:02)
[2020-12-03] MEDS: amLODIPine 2.5 MG Tablet PO (11:46)
[2020-12-03] MEDS: Aspirin 81 MG TAB.CHEW PO (11:46)
[2020-12-03] MEDS: Metoprolol Tartrate 25 MG Tablet PO ×2 (11:47→22:02)
[2020-12-03] MEDS: busPIRone 5 MG Tablet PO ×2 (11:48→22:02)
[2020-12-03] MEDS: Enoxaparin 40 MG/0.4 ML Syringe SC (11:48)
[2020-12-03] MEDS: Ferrous Sulfate 325 MG Tablet PO (11:49)
[2020-12-03] MEDS: DAKIN'S SOL HALF STRENGTH (=0.25%) 1 APPLIC TOPICAL (11:49)
[2020-12-03] MEDS: Pantoprazole Sodium 20 MG Tablet PO (11:49)
[2020-12-03] MEDS: Memantine Hydrochloride 5 MG Tablet PO (11:49)
[2020-12-03] MEDS: Furosemide 40 MG Tablet PO (11:50)
[2020-12-03] MEDS: Nystatin Powder 15gm Bottle 1 APPLIC TOPICAL ×2 (11:51→22:01)
[2020-12-03] MEDS: traMADol 50 MG Tablet PO ×2 (11:58→22:24)
--- NOTE | 2020-12-03 12:17 | NURSING ---
pharmacy called with shahnaz corcoran- 23.4- pharm wanted shahnaz stopped
--- NOTE | 2020-12-03 13:19 | PCM.RX.CS ---
Consult Pharmacy has been consulted to manage selected antiobiotic: Vancomycin Type of Consult: Follow-up Suspected Infection: Other - INFECTED ULCER Labs: Sodium 140 mmol/L (136-145) 12/03/20 10:47 Potassium 4.0 mmol/L (3.5-5.1) 12/03/20 10:47 Chloride 109 mmol/L (98-107) H 12/03/20 10:47 Carbon Dioxide 26.0 mmol/L (21.0-32.0) 12/03/20 10:47 Anion Gap 5 (5-15) 12/03/20 10:47 BUN 16 mg/dL (7-18) 12/03/20 10:47 Creatinine 0.72 mg/dL (0.55-1.02) 12/03/20 10:47 Est GFR (MDRD) Af Amer 104 mL/min (>60) 12/03/20 10:47 Est GFR (MDRD) Non-Af 86 mL/min (>60) 12/03/20 10:47 BUN/Creatinine Ratio 22.2 RATIO (10-20) H 12/03/20 10:47 Glucose 224 mg/dL (74-106) H 12/03/20 10:47 Vancomycin Trough 23.4 ug/mL (5.0-15.0) H 12/03/20 10:47 Microbiology: Microbiology 12/01/20 22:50 Wound Abcess - Other Gram Stain - Final 12/01/20 22:50 Wound Abcess - Other Wound Culture - Final Proteus mirabilis Goal Trough: 15-20 mcg/mL Pharmacy Plan for Drug Dosing: VANCOMYCIN LEVEL RECEIVED Current Vancomycin Dose: 1750MG Q12H Number of Doses Received: 3 Vancomycin Level: 23.4 MG/DL Hours Since Last Dose: 14 Renal Function: SCR 0.72, CRCL 90ML/MIN USING ADJ BW Renal Function Trend: STABLE Lab/Micro: PROTEUS IN WOUND CX Vancomycin Plan/Comments: DOSE THIS MORNING WAS ALREADY HUNG, SPOKE WITH NURSE ~1215 AND SHE WILL STOP BAG. CONTINUE TO HOLD VANCOMYCIN DUE TO HIGH TROUGH AND GET A LEVEL IN 24 HOURS. Pharmacy Service will continue to monitor and adjust dosing as required. Labs to be done on [date and time ordered]: 12/04/20 @ 1100
--- NOTE | 2020-12-03 13:38 | DCINST_ITS ---
- Discharge Diagnoses Current Active Problems: Current Active and Chronic Problems Acute on chronic anemia (Acute) Infected stage IV decubitus ulcer (Acute) Decubitus ulcer of coccygeal region, stage 3 (Chronic) COPD (chronic obstructive pulmonary disease) (Chronic) Diabetic neuropathy (Chronic) Peripheral vascular disease in diabetes mellitus (Chronic) Diabetes mellitus type II (Chronic) Coronary artery disease (Chronic) Status post CABG You will use the following diet at home:: Calorie/Carbohydrate Controlled ( specify 1200, 1400, etc) Discharge Activity: Return to Normal Activity Call your doctor if you observe: Fever of 101 or Higher Additional Instructions: Cleanse wounds to sacrum and bilateral buttocks. Pack sacral wound with Dakin's moistened gauze, be sure to pack tunneling area toward the left buttock. Place Aquacel to the open areas and bilateral buttocks. Cover with dry dressing. Change daily and as needed. Allergies/Adverse Reactions: Allergies povidone-iodine [From Betadine] Allergy (Verified 03/07/20 15:27) Itching topical betadine prednisone Allergy (Verified 03/07/20 15:27) tiny mouth ulcers Medications to take at Discharge Atorvastatin Calcium [Lipitor] 20 mg PO QHS 03/24/15 Metoprolol Tartrate [Lopressor (beta liza)] 25 mg PO BID 03/24/15 Omeprazole [Prilosec] 20 mg PO DAILY 03/24/15 Albuterol Aerosols [Ventolin Aerosols] 2.5 mg INHALATION Q6HWA.RT PRN 09/10/16 traMADol [Ultram] 50 mg PO Q8H PRN PRN 12/25/17 Ferrous Sulfate 325 mg PO DAILY@0800 02/18/20 Amlodipine [Norvasc] 2.5 mg PO DAILY 12/02/20 Aspirin [Aspirin, Baby] 81 mg PO DAILY@0800 12/02/20 Clopidogrel Bisulfate [Plavix] 75 mg PO DAILY 12/02/20 Furosemide [Lasix] 40 mg PO DAILY 12/02/20 Gabapentin 600 mg PO BID 12/02/20 Insulin Glargine,Hum.rec.anlog [Lantus] 68 unit SQ QHS 12/02/20 Insulin Lispro [Humalog KwikPen] See Protocol SC ACHS 12/02/20 Memantine HCl 5 mg PO DAILY 12/02/20 Nystatin Powder [Mycostatin Powder] 1 applic TOPICAL TID 12/02/20 Venlafaxine HCl [Effexor Xr] 75 mg PO DAILY 12/02/20 busPIRone [Buspar] 5 mg PO BID 12/02/20 Primary Care Physician: Gera Snider III, MD [Primary Care Provider] - Please follow up with your Primary Care Physician in: 1 Week Test Results: Test results from this visit will be discussed in further detail at your follow- up appointment, if applicable. Please Follow Up With: Clinic,Wound When: 3-5 days Proposed Discharge Date: 12/03/20
--- NOTE | 2020-12-03 13:47 | PN_ITS ---
<Marisa Coello ROOM MANAGER - Last Filed: 12/03/20 13:58> Patient Problems: Active and Suspected Problems Acute on chronic anemia (Acute) Infected stage IV decubitus ulcer (Acute) Subjective: Patient seen and examined. Upset that this provider woke her up. This morning during assessment, patient refusing surgery, PICC line, SNF. Plan for discharge home on oral antibiotics however this afternoon notified that patient is now agreeable to surgery and will consider SNF at discharge. - Physical Exam Vitals/I&O's: Vital Signs Temp Pulse Resp BP Pulse Ox 98.9 F 89 18 152/87 H 97 12/03/20 10:23 12/03/20 11:47 12/03/20 10:23 12/03/20 11:47 12/03/20 10:23 Oxygen Flow Rate (L/min) 2 Oxygen Delivery Method Room Air Weight: 254 lb 6.403 oz Body Mass Index (BMI) 42.3 Finger Stick Blood Glucose 111 Intake and Output for Last 24 Hours 12/01/20 12/02/20 12/03/20 23:59 23:59 23:59 Intake Total 646.67 / 866.67 4248.33 / 4368.33 1000.83 / 1000.83 Output Total 2125 / 2625 825 / 825 Balance 646.67 / 316.67 2123.33 / 1743.33 175.83 / 175.83 General: Alert, Oriented x3, Cooperative HEENT: Atraumatic, PERRLA, EOMI, Normocephalic Neck: Supple, No JVD, Negative Carotid Bruits Lungs: Clear to auscultation, Normal air movement Cardiovascular: Regular rate, No murmurs Abdomen: Bowel Sounds Present, Soft, Non Tender, Non-Distended Extremities: No clubbing, No cyanosis, No edema, Capillary Refill Less than 3 Seconds Skin: No rashes, No breakdown, - - Decubitus ulcer, dressing intact Musculoskeletal: No Tenderness to Palpation of Joints or Extremities Neurological: Cranial nerves II-XII grossly intact, Neuro grossly intact Psych/Mental Status: Flat Affect Microbiology Past 72 Hours 12/01/20 22:50 Wound Abcess - Other Gram Stain - Final 12/01/20 22:50 Wound Abcess - Other Wound Culture - Final Proteus mirabilis Laboratory Results 12/03/20 10:47: WBC 6.7, RBC 3.70 L, Hgb 8.8 L, Hct 30.3 L, MCV 81.9 D, MCH 2 3.8 L, MCHC 29.0 L, RDW Std Deviation 48.2 H, RDW Coeff of Ash 16.2 H, Plt Count 348, MPV 9.4, Immature Gran % (Auto) 0.500, Neut % (Auto) 64.0, Lymph % (Auto) 23.4, Kaufman % (Auto) 8.1, Eos % (Auto) 3.5, Baso % (Auto) 0.5, Absolute Neuts (auto) 4.3, Absolute Lymphs (auto) 1.56, Nucleated RBC % 0 12/03/20 10:47: Sodium 140, Potassium 4.0, Chloride 109 H, Carbon Dioxide 26.0, Anion Gap 5, BUN 16, Creatinine 0.72, Estim Creat Clear Calc 49.80, Est GFR (MDRD) Af Amer 104, Est GFR (MDRD) Non-Af 86, BUN/Creatinine Ratio 22.2 H, Glucose 224 H, Calcium 8.6 12/03/20 10:47: Vancomycin Trough 23.4 H Current Medications Acetaminophen (Acetaminophen 325 Mg Tablet) 650 mg PO Q6H PRN PRN PRN Reason: Pain Score 1-10/Temp > 100.7 F Last Admin: 12/02/20 10:06 Dose: 650 mg Documented by: Albuterol Sulfate (Albuterol 2.5 Mg/3 Ml Vial.Neb.) 2.5 mg INHALATION Q4H PRN PRN PRN Reason: Shortness of breath, wheezing Amlodipine Besylate (Amlodipine 2.5 Mg Tablet) 2.5 mg PO DAILY [facility] Last Admin: 12/03/20 11:46 Dose: 2.5 mg Documented by: Aspirin (Aspirin 81 Mg Tab.Chew) 81 mg PO DAILY@0800 [facility] Last Admin: 12/03/20 11:46 Dose: 81 mg Documented by: Atorvastatin Calcium (Atorvastatin Calcium 20 Mg Tablet) 20 mg PO QHS [facility] Last Admin: 12/02/20 21:50 Dose: 20 mg Documented by: Buspirone HCl (Buspirone 5 Mg Tablet) 5 mg PO BID [facility] Last Admin: 12/03/20 11:48 Dose: 5 mg Documented by: Enoxaparin Sodium (Enoxaparin 40 Mg/0.4 Ml Syringe) 40 mg SC DAILY [facility] Last Admin: 12/03/20 11:48 Dose: 40 mg Documented by: Ferrous Sulfate (Ferrous Sulfate 325 Mg Tablet) 325 mg PO DAILY@0800 [facility] Last Admin: 12/03/20 11:49 Dose: 325 mg Documented by: Furosemide (Furosemide 40 Mg Tablet) 40 mg PO DAILY [facility] Last Admin: 12/03/20 11:50 Dose: 40 mg Documented by: Gabapentin (Gabapentin 600 Mg Tablet) 600 mg PO BID [facility] Last Admin: 12/03/20 11:46 Dose: 600 mg Documented by: Hydromorphone HCl (Hydromorphone 1 Mg/Ml Syringe) 1 mg IV Q4H PRN PRN PRN Reason: Pain Score 6-10 Last Admin: 12/03/20 10:19 Dose: 1 mg Documented by: Vancomycin IV Pharmacy to Dose (1 ea/ Sodium Chloride) 500 mls @ 250 mls/hr IV X1 PRN; Protocol PRN Reason: Rx to Dose Piperacillin Sod/Tazobactam (Sod 3.375 gm/ Sodium Chloride) 50 mls @ 100 mls/hr IV Q8 [facility] Last Admin: 12/03/20 07:32 Dose: 100 mls/hr Documented by: Insulin Glargine (Insulin Glargine 100 Units/Ml Pen) 68 units SC QHS [facility] Last Admin: 12/02/20 21:53 Dose: 68 units Documented by: Insulin Human Lispro (Insulin Lispro 100 Unit/Ml Insuln.Pen) 0 unit SC ACHS [facility]; Protocol Last Admin: 12/03/20 12:20 Dose: 2 unit Documented by: Memantine (Memantine Hydrochloride 5 Mg Tablet) 5 mg PO DAILY [facility] Last Admin: 12/03/20 11:49 Dose: 5 mg Documented by: Metoprolol Tartrate (Metoprolol Tartrate 25 Mg Tablet) 25 mg PO BID [facility] Last Admin: 12/03/20 11:47 Dose: 25 mg Documented by: Nystatin (Nystatin Powder 15gm Bottle) 1 applic TOPICAL BID [facility]; Protocol Last Admin: 12/03/20 11:51 Dose: 1 applicatio Documented by: Ondansetron HCl (Ondansetron 4 Mg/2 Ml Vial) 4 mg IV Q8H PRN PRN PRN Reason: NAUSEA/VOMITING Last Admin: 12/03/20 10:32 Dose: 4 mg Documented by: Oxycodone HCl (Oxycodone 5 Mg Tablet) 5 mg PO Q4H PRN PRN PRN Reason: Pain Score 4-5 Last Admin: 12/02/20 10:06 Dose: 5 mg Documented by: Pantoprazole Sodium (Pantoprazole Sodium 20 Mg Tablet) 20 mg PO DAILY [facility] Last Admin: 12/03/20 11:49 Dose: 20 mg Documented by: Senna/Docusate Sodium (Senna/Docusate Sodium 1 Tablet) 2 tablet PO BID PRN PRN PRN Reason: Constipation Sodium Chloride (0.9% Saline Lock 10 Ml Syringe) 10 - 40 ml IV UD PRN PRN Reason: SALINE FLUSH Last Admin: 12/02/20 21:37 Dose: 10 ml Documented by: Sodium Hypochlorite (Dakin's Geovanna Half Strength (=0.25%)) 1 applic TOPICAL DAILY [facility]; Protocol Last Admin: 12/03/20 11:49 Dose: 1 dose Documented by: Tramadol HCl (Tramadol 50 Mg Tablet) 50 mg PO Q8H PRN PRN PRN Reason: Pain Score 4-10 Last Admin: 12/03/20 11:58 Dose: 50 mg Documented by: Venlafaxine HCl (Venlafaxine Xr 75 Mg Capsule) 75 mg PO DAILY [facility] Last Admin: 12/03/20 11:45 Dose: 75 mg Documented by: Zolpidem Tartrate (Zolpidem Tartrate 5 Mg Tablet) 5 mg PO QHS PRN PRN PRN Reason: INSOMNIA Medical Necessity - Tobacco Use Smoking Status: Current every day smoker Assessment/Plan All Active Problems Acute on chronic anemia (Acute) Infected stage IV decubitus ulcer (Acute) 1. 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 Dr. Mack consulted. Wound RN consult. Blood cultures pending. Wound culture growing Proteus. Continue IV Zosyn. DC vancomycin. As needed pain regimen. Patient had surgical intervention May 2020 at [facility], wound VAC was placed at that time and patient refused to take wound VAC off. Recent discharge from [facility] approximately 2 weeks ago. PT/OT. ID consulted. Plan for surgical intervention on Sunday per Dr. Mack. PICC line ordered. 2. Type 2 diabetes anyghyiv-Bbzj-Gwgnh with sliding scale insulin. Hemoglobin A1c 9.2%. 3. History of CVA-on aspirin, statin. Hold Plavix. 4. Carotid stenosis-on aspirin, statin. Hold Plavix. 5. CAD with history of CABG-continue medical management. On aspirin, statin, lisinopril, metoprolol. Plavix held. 6. Chronic anemia-at baseline, trend CBC. 7. Chronic COPD-no acute exacerbation. As needed albuterol aerosol. 8. Hypertension-stable, continue lisinopril, metoprolol, HCTZ. 9. Hyperlipidemia-continue statin. 10. PVD-on aspirin, statin. DVT prophylaxis-Lovenox subcu This patient was seen by SARAH Cadena under the supervision of Dr. Lopez. <West Lopez - Last Filed: 12/03/20 14:39> Subjective: Patient has been refusing labs. In the morning she also refused her Vanco trough although was try to convince by nursing staff and myself that was required in order to titrate the dose of vancomycin. Initially she wanted to go home but later on in afternoon she changed her mind and agreeable for surgery. Physical exam General: Alert, Oriented x3, morbid obesity BMI 42.3 kg/m? HEENT: Atraumatic, PERRLA, EOMI, Normocephalic Oral: No Gingival or Mucosal Lesions/ Ulcerations Neck: Supple, No JVD, Negative Carotid Bruits Lungs: Air entry diminished in bilateral lung bases. No crepitation/rhonchi Cardiovascular: Regular rate, Regular Rhythm, Normal S1, Normal S2, No murmurs. Decreased pulses in his lower extremities Abdomen: Bowel Sounds Present, Soft, Non Tender, Non-Distended. LLQ colostomy : Chronic urinary Guy catheter on no renal angle tenderness. No suprapubic tenderness. Extremities: No edema, Capillary Refill Less than 3 Seconds Skin: Stage IV purulent sacral decubitus ulcer, stage II right ischium decubitus ulcer. Bilateral heel stage I decubitus ulcer, present on admission. Musculoskeletal: Bilateral lower extremity weakness, 3/5, chronic. No Tenderness to Palpation of Joints or Extremities Neurological: Cranial nerves II-XII grossly intact, Deep Tendon Reflexes 2+/4 and Symmetrical, Neuro grossly intact Psych/Mental Status: Irritable, uncooperative - Physical Exam Vitals/I&O's: Vital Signs Temp Pulse Resp BP Pulse Ox 98.9 F 89 18 152/87 H 97 12/03/20 10:23 12/03/20 11:47 12/03/20 10:23 12/03/20 11:47 12/03/20 10:23 Oxygen Flow Rate (L/min) 2 Oxygen Delivery Method Room Air Weight: 254 lb 6.403 oz Body Mass Index (BMI) 42.3 Finger Stick Blood Glucose 111 Intake and Output for Last 24 Hours 12/01/20 12/02/20 12/03/20 23:59 23:59 23:59 Intake Total 646.67 / 866.67 4248.33 / 4368.33 1000.83 / 1000.83 Output Total 2125 / 2625 825 / 825 Balance 646.67 / 316.67 2123.33 / 1743.33 175.83 / 175.83 Skin: - Microbiology Past 72 Hours 12/01/20 22:50 Wound Abcess - Other Gram Stain - Final 12/01/20 22:50 Wound Abcess - Other Wound Culture - Final Proteus mirabilis Laboratory Results 12/03/20 10:47: WBC 6.7, RBC 3.70 L, Hgb 8.8 L, Hct 30.3 L, MCV 81.9 D, MCH 23.8 L, MCHC 29.0 L, RDW Std Deviation 48.2 H, RDW Coeff of Ash 16.2 H, Plt Count 348, MPV 9.4, Immature Gran % (Auto) 0.500, Neut % (Auto) 64.0, Lymph % (Auto) 23.4, Kaufman % (Auto) 8.1, Eos % (Auto) 3.5, Baso % (Auto) 0.5, Absolute Neuts (auto) 4.3, Absolute Lymphs (auto) 1.56, Nucleated RBC % 0 12/03/20 10:47: Sodium 140, Potassium 4.0, Chloride 109 H, Carbon Dioxide 26.0, Anion Gap 5, BUN 16, Creatinine 0.72, Estim Creat Clear Calc 49.80, Est GFR (MDRD) Af Amer 104, Est GFR (MDRD) Non-Af 86, BUN/Creatinine Ratio 22.2 H, Glucose 224 H, Calcium 8.6 12/03/20 10:47: Vancomycin Trough 23.4 H Current Medications Acetaminophen (Acetaminophen 325 Mg Tablet) 650 mg PO Q6H PRN PRN PRN Reason: Pain Score 1-10/Temp > 100.7 F Last Admin: 12/02/20 10:06 Dose: 650 mg Documented by: Albuterol Sulfate (Albuterol 2.5 Mg/3 Ml Vial.Neb.) 2.5 mg INHALATION Q4H PRN PRN PRN Reason: Shortness of breath, wheezing Amlodipine Besylate (Amlodipine 2.5 Mg Tablet) 2.5 mg PO DAILY [facility] Last Admin: 12/03/20 11:46 Dose: 2.5 mg Documented by: Aspirin (Aspirin 81 Mg Tab.Chew) 81 mg PO DAILY@0800 [facility] Last Admin: 12/03/20 11:46 Dose: 81 mg Documented by: Atorvastatin Calcium (Atorvastatin Calcium 20 Mg Tablet) 20 mg PO QHS [facility] Last Admin: 12/02/20 21:50 Dose: 20 mg Documented by: Buspirone HCl (Buspirone 5 Mg Tablet) 5 mg PO BID [facility] Last Admin: 12/03/20 11:48 Dose: 5 mg Documented by: Enoxaparin Sodium (Enoxaparin 40 Mg/0.4 Ml Syringe) 40 mg SC DAILY [facility] Last Admin: 12/03/20 11:48 Dose: 40 mg Documented by: Ferrous Sulfate (Ferrous Sulfate 325 Mg Tablet) 325 mg PO DAILY@0800 [facility] Last Admin: 12/03/20 11:49 Dose: 325 mg Documented by: Furosemide (Furosemide 40 Mg Tablet) 40 mg PO DAILY [facility] Last Admin: 12/03/20 11:50 Dose: 40 mg Documented by: Gabapentin (Gabapentin 600 Mg Tablet) 600 mg PO BID [facility] Last Admin: 12/03/20 11:46 Dose: 600 mg Documented by: Hydromorphone HCl (Hydromorphone 1 Mg/Ml Syringe) 1 mg IV Q4H PRN PRN PRN Reason: Pain Score 6-10 Last Admin: 12/03/20 10:19 Dose: 1 mg Documented by: Piperacillin Sod/Tazobactam (Sod 3.375 gm/ Sodium Chloride) 50 mls @ 100 mls/hr IV Q8 [facility] Last Admin: 12/03/20 07:32 Dose: 100 mls/hr Documented by: Insulin Glargine (Insulin Glargine 100 Units/Ml Pen) 68 units SC QHS [facility] Last Admin: 12/02/20 21:53 Dose: 68 units Documented by: Insulin Human Lispro (Insulin Lispro 100 Unit/Ml Insuln.Pen) 0 unit SC ACHS [facility]; Protocol Last Admin: 12/03/20 12:20 Dose: 2 unit Documented by: Memantine (Memantine Hydrochloride 5 Mg Tablet) 5 mg PO DAILY [facility] Last Admin: 12/03/20 11:49 Dose: 5 mg Documented by: Metoprolol Tartrate (Metoprolol Tartrate 25 Mg Tablet) 25 mg PO BID [facility] Last Admin: 12/03/20 11:47 Dose: 25 mg Documented by: Nystatin (Nystatin Powder 15gm Bottle) 1 applic TOPICAL BID [facility]; Protocol Last Admin: 12/03/20 11:51 Dose: 1 applicatio Documented by: Ondansetron HCl (Ondansetron 4 Mg/2 Ml Vial) 4 mg IV Q8H PRN PRN PRN Reason: NAUSEA/VOMITING Last Admin: 12/03/20 10:32 Dose: 4 mg Documented by: Oxycodone HCl (Oxycodone 5 Mg Tablet) 5 mg PO Q4H PRN PRN PRN Reason: Pain Score 4-5 Last Admin: 12/02/20 10:06 Dose: 5 mg Documented by: Pantoprazole Sodium (Pantoprazole Sodium 20 Mg Tablet) 20 mg PO DAILY [facility] Last Admin: 12/03/20 11:49 Dose: 20 mg Documented by: Senna/Docusate Sodium (Senna/Docusate Sodium 1 Tablet) 2 tablet PO BID PRN PRN PRN Reason: Constipation Sodium Chloride (0.9% Saline Lock 10 Ml Syringe) 10 - 40 ml IV UD PRN PRN Reason: SALINE FLUSH Last Admin: 12/02/20 21:37 Dose: 10 ml Documented by: Sodium Hypochlorite (Dakin's Geovanna Half Strength (=0.25%)) 1 applic TOPICAL DAILY [facility]; Protocol Last Admin: 12/03/20 11:49 Dose: 1 dose Documented by: Tramadol HCl (Tramadol 50 Mg Tablet) 50 mg PO Q8H PRN PRN PRN Reason: Pain Score 4-10 Last Admin: 12/03/20 11:58 Dose: 50 mg Documented by: Venlafaxine HCl (Venlafaxine Xr 75 Mg Capsule) 75 mg PO DAILY [facility] Last Admin: 12/03/20 11:45 Dose: 75 mg Documented by: Zolpidem Tartrate (Zolpidem Tartrate 5 Mg Tablet) 5 mg PO QHS PRN PRN PRN Reason: INSOMNIA Assessment/Plan This patient was seen in conjunction with Marisa SOLORZANO. I have independently interviewed and examined the patient and reviewed pertinent history, examination findings, laboratory and plan of management. I have reviewed the note and agree with the documented findings with the few additional points. In brief, patient is admitted for management of his stage IV recurrent sacral decubitus ulcer along with right buttock stage II decubitus ulcer, stage II right ischium decubitus ulcer and bilateral heel unstageable. Patient is type 2 diabetes mellitus. She had radiation treatment for vulvar cancer. She has surgery for decubitus ulcer in May 2020 in [facility] and after that she was in rehab until November 2020. She also had wound VAC but she is noncooperative to the treatment. Patient has colostomy and chronic Guy catheter. Wound culture is showing Proteus mirabilis, MR RODRIGUEZ. Vancomycin discontinued continue Zosyn. Patient agreed to stay although she was planning for discharge in the morning. Plan for OR next week. Type 2 diabetes mellitus: A1c 9.2%. Glucose 224. Needs good glucose control. Other comorbidities as mentioned above including history of a stroke carotid stenosis suggestive of peripheral arterial disease. Coronary artery disease, COPD. I have discussed my assessment with Marisa SOLORZANO and orders have been reviewed. Inpatient E&M: 59735 Subs Hosp L2
--- NOTE | 2020-12-03 14:24 | PCM.HP.ID ---
Problem List (1) Infected stage IV decubitus ulcer Status: Acute Reason for Consult: osteo Consulted by: Dr. Lopez History of Present Illness: The patient is a 65 year old F with h/o stroke, sacral decub with wound vac, colostomy, chronic wright, taken to ED due to worsened odor and tunneling of sacral ulcer. No fever, no n/v/d, no recent abx. Admitted on vanc/zosyn, wound cx sent. Feeling ok. Plan now is for surgical debridement next week. Full ROS performed and neg except as noted above. - Medical History Past Medical History (Chronic Problems): Chronic Problems Stage II pressure ulcer of right buttock (Chronic) Stage II pressure ulcer of left buttock (Chronic) Obesity, morbid (Chronic) Decubitus ulcer of coccygeal region, stage 3 (Chronic) Tobacco abuse (Chronic) COPD (chronic obstructive pulmonary disease) (Chronic) Depression (Chronic) Dyslipidemia (Chronic) Pressure ulcer of left heel, stage 2 (Chronic) Stage III pressure ulcer of sacral region (Chronic) Diabetic neuropathy (Chronic) Peripheral vascular disease in diabetes mellitus (Chronic) Diabetes mellitus type II (Chronic) Coronary artery disease (Chronic) Status post CABG Cancer of vulva (Chronic) Status post radical vulvectomy and radiotherapy in January 2014 Allergies/Adverse Reactions: Allergies povidone-iodine [From Betadine] Allergy (Verified 03/07/20 15:27) Itching topical betadine prednisone Allergy (Verified 03/07/20 15:27) tiny mouth ulcers Home Medications: Ambulatory Orders Medication Instructions Recorded Atorvastatin Calcium [Lipitor] 20 mg PO QHS 03/24/15 Metoprolol Tartrate [Lopressor 25 mg PO BID 03/24/15 (beta liza)] Omeprazole [Prilosec] 20 mg PO DAILY 03/24/15 Albuterol Aerosols [Ventolin 2.5 mg INHALATION Q6HWA.RT PRN 09/10/16 Aerosols] traMADol [Ultram] 50 mg PO Q8H PRN PRN 12/25/17 Ferrous Sulfate 325 mg PO DAILY@0800 02/18/20 Amlodipine [Norvasc] 2.5 mg PO DAILY 12/02/20 Aspirin [Aspirin, Baby] 81 mg PO DAILY@0800 12/02/20 Clopidogrel Bisulfate [Plavix] 75 mg PO DAILY 12/02/20 Furosemide [Lasix] 40 mg PO DAILY 12/02/20 Gabapentin 600 mg PO BID 12/02/20 Insulin Glargine,Hum.rec.anlog 68 unit SQ QHS 12/02/20 [Lantus] Insulin Lispro [Humalog KwikPen] See Protocol SC ACHS 12/02/20 Memantine HCl 5 mg PO DAILY 12/02/20 Nystatin Powder [Mycostatin Powder] 1 applic TOPICAL TID 12/02/20 Venlafaxine HCl [Effexor Xr] 75 mg PO DAILY 12/02/20 busPIRone [Buspar] 5 mg PO BID 12/02/20 - Social History Tobacco Use: cigarettes Vital Signs Temp Pulse Resp BP Pulse Ox 98.9 F 89 18 152/87 H 97 12/03/20 10:23 12/03/20 11:47 12/03/20 10:23 12/03/20 11:47 12/03/20 10:23 Oxygen Flow Rate (L/min) 2 Oxygen Delivery Method Room Air Weight: 115.394 kg Body Mass Index (BMI) 42.3 Finger Stick Blood Glucose 111 Microbiology Past 72 Hours 12/01/20 22:50 Gram Stain - Final Wound Abcess - Other Wound Culture - Final Proteus mirabilis Laboratory Tests Past 24 Hrs 12/03/20 12/03/20 12/03/20 10:47 10:47 10:47 WBC 6.7 RBC 3.70 L Hgb 8.8 L Hct 30.3 L MCV 81.9 D MCH 23.8 L MCHC 29.0 L RDW Std Deviation 48.2 H RDW Coeff of Ash 16.2 H Plt Count 348 MPV 9.4 Immature Gran % (Auto) 0.500 Neut % (Auto) 64.0 Lymph % (Auto) 23.4 Sherman % (Auto) 8.1 Eos % (Auto) 3.5 Baso % (Auto) 0.5 Absolute Neuts (auto) 4.3 Absolute Lymphs (auto) 1.56 Nucleated RBC % 0 Sodium 140 Potassium 4.0 Chloride 109 H Carbon Dioxide 26.0 Anion Gap 5 BUN 16 Creatinine 0.72 Estim Creat Clear Calc 49.80 Est GFR (MDRD) Af Amer 104 Est GFR (MDRD) Non-Af 86 BUN/Creatinine Ratio 22.2 H Glucose 224 H Calcium 8.6 Vancomycin Trough 23.4 H - Other Studies Radiology: [] reviewed Other Studies: [] Route of nutrition/ use of supplements: [] Nutritional Intake: [] IV Site: [] Wright Catheter: [] - Physical Exam General: Alert, Oriented x3, Cooperative, No apparent distress HEENT: Atraumatic, PERRLA, EOMI Neck: Supple, No Nodes Lungs: Clear to auscultation, Normal air movement Cardiovascular: Regular rate, Regular Rhythm Abdomen: Soft, Non Tender, Non-Distended, - - ostomy Extremities: Edema Skin: Ulcer/ Wound - reviewed photos IV Site: Peripheral, without redness Musculoskeletal: No Tenderness to Palpation of Joints or Extremities Neurological: Cranial nerves II-XII grossly intact - Assessment/Plan Antibiotics: [] Assessment/Plan: [] Active and Suspected Problems Acute on chronic anemia (Acute) Infected stage IV decubitus ulcer (Acute) suspected 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 Ok to narrow abx to zosyn. Plan is for OR next week. Will follow, thank you, d/w primary team
[2020-12-03] MEDS: Acetaminophen 325 MG Tablet 650 MG PO ×2 (14:37→22:24)
[2020-12-03] MEDS: oxyCODONE 5 MG Tablet PO ×2 (14:37→19:07)
--- NOTE | 2020-12-03 15:56 | CASEMGMT ---
Social Work Pt has a current open case with Adult Protective Services. BRANDON placed call to Chandni at [facility] and updated that pt will be having surgery next week and SW will follow up for discharge planning. Chandni appreciative of update. BRANDON to continue to follow. MAICOL Downing
--- NOTE | 2020-12-03 16:01 | NURSING ---
assistant grocery called for PICC line placement.
[2020-12-03] MEDS: Atorvastatin Calcium 20 MG Tablet PO (22:04)
--- NOTE | 2020-12-03 22:33 | NURSING ---
RN AND CIGAR HEAD PUNCHER IN TO ASSIST PT TO TURN, CHECK HER DRESSING, LISTEN TO HER LUNGS, EMPTY COLOSTOMY AND DO HS CARE, PT ARGUMENTATIVE ABOUT EVERYTHING THAT STAFF OFFERED OR SAID (IE.. TURNING, SNACKS, COLOSTOMY, CHUCKS ETC) STATES SHE DOESNT LIKE ANYONE HERE WE'RE ALL [employer] STAFF ARE LYING, SHE WASNT ON HER RT SIDE W/A PILLOW WHEN WE CAME IN, HER FRESH CHUX PLACED BY STAFF WASNT EXACTLY THE PRIOR ONE HAD BEEN, SHE COULDNT REACH ANYTHING ON HER OVERBED TABLE (EVEN THOUGH SHE GOT HER CUP OF MILK HERSELF) ETC.. STAFF TRIED TO DO ALL TASKS TO HER LIKING BUT PT ANGRY AND COULDNT PLEASE HER WITH ANY TASKS OR REASSURANCE. TOOK HER MEDS AND LEFT ROOM. CALL LIGHT IN REACH PT EATING SNACK AND WATCHING TV. PRECINCT POL[employer]IEUT[employer]NT AWARE
[2020-12-04] VITALS (7 sets, daily range): BP systolic 134–164; BP diastolic 44–71; PULSE 56–84; RESP 16–18; TEMP 36.3–37.1; O2SAT 95–99
[2020-12-04] MEDS: Insulin Lispro 100 UNIT/ML INSULN.PEN SC ×3 (05:52→21:43)
[2020-12-04 08:19] LABS: Hematocrit 28.7 % (37-47); Hemoglobin 8.2 g/dL (12.0-15.0); Mean Corp Hgb Conc 28.6 g/dL (32-36); Mean Corpuscular Hgb 23.3 pg (27.0-32.0); Mean Corpuscular Volume 81.5 fL (81-99); Mean Platelet Vol. 9.6 fl (6.2-12.0); Platelet Count 339 K/mm3 (150-450); RBC Distribution Width CV 16.2 % (11.6-14.6); Red Blood Count 3.52 M/mm3 (4.2-5.4); White Blood Count 6.2 K/mm3 (4.4-11.0)
[2020-12-04 08:37] LABS: Anion Gap 5 (5-15); BUN 17 mg/dL (7-18); BUN/Creat Ratio 19.7 RATIO (10-20); Calcium,Total 8.3 mg/dL (8.5-10.1); Chloride 110 mmol/L (98-107); Creatinine, Serum 0.86 mg/dL (0.55-1.02); EST Glomerular Filtration Rate 70 mL/min (>60); Est Glom Filt Rate - Afr Amer 84 mL/min (>60); Glucose 186 mg/dL (74-106); Potassium 3.8 mmol/L (3.5-5.1); Sodium Level 141 mmol/L (136-145)
[2020-12-04] MEDS: oxyCODONE 5 MG Tablet PO ×3 (09:27→21:42)
[2020-12-04] MEDS: Acetaminophen 325 MG Tablet 650 MG PO ×3 (09:28→21:42)
[2020-12-04] MEDS: Ferrous Sulfate 325 MG Tablet PO (09:29)
[2020-12-04] MEDS: busPIRone 5 MG Tablet PO ×2 (09:29→21:43)
[2020-12-04] MEDS: Aspirin 81 MG TAB.CHEW PO (09:29)
[2020-12-04] MEDS: Venlafaxine XR 75 MG Capsule PO (09:30)
[2020-12-04] MEDS: Enoxaparin 40 MG/0.4 ML Syringe SC (09:30)
[2020-12-04] MEDS: Furosemide 40 MG Tablet PO (09:30)
[2020-12-04] MEDS: Metoprolol Tartrate 25 MG Tablet PO ×2 (09:30→21:44)
[2020-12-04] MEDS: Gabapentin 600 MG Tablet PO ×2 (09:31→21:45)
[2020-12-04] MEDS: Memantine Hydrochloride 5 MG Tablet PO (09:31)
[2020-12-04] MEDS: Nystatin Powder 15gm Bottle 1 APPLIC TOPICAL ×2 (09:32→21:44)
[2020-12-04] MEDS: amLODIPine 2.5 MG Tablet PO (09:32)
[2020-12-04] MEDS: Pantoprazole Sodium 20 MG Tablet PO (09:32)
[2020-12-04] MEDS: DAKIN'S SOL HALF STRENGTH (=0.25%) 1 APPLIC TOPICAL (09:33)
--- NOTE | 2020-12-04 10:27 | CT_ITS ---
STUDY: CT PELVIS WITHOUT CONTRAST REASON FOR EXAM: Female, 65 years old. osteomyelitis -- has sacral pressure sore, Stage IV RADIATION DOSAGE (If Supplied By Facility): CTDIvol = ( 28.21 ) mGy, DLP = ( 1275.44 ) mGycm TECHNIQUE: Transaxial imaging of the pelvis was performed with oral contrast, and without intravenous administration of contrast material. Individualized dose optimization techniques were used for this CT. COMPARISON: 12/07/2014 FINDINGS: Guy catheter within the collapsed bladder. Normal visualized small intestine. Left lower quadrant colostomy. There is no pelvic fluid. There is no pelvic mass lesion or lymphadenopathy. Normal visualized pelvic arteries. Normal abdominal wall. Right hip arthroplasty which produces streak artifact. 5 cm decubitus ulcer at the level the distal sacrum with probable exposure the posterior cortex and destruction of the distal sacrum. CT/Pelvis without IV Contrast IMPRESSION: 5 cm decubitus ulcer extending to the posterior cortex of the sacrum with the osteomyelitis and destruction of the distal sacrum. No abscess. Electronically Signed: Alex Mayes MD at 13:23 EST Tel , Service support ,
[2020-12-04] MEDS: HYDROmorphone 1 MG/ML Syringe IV ×2 (11:04→19:38)
[2020-12-04] MEDS: HYDROmorphone Inj 0.2 MG/ML SYRINGE IV (11:22)
--- NOTE | 2020-12-04 12:03 | PN_ITS ---
<ModeMarisa HUMANE AGENT - Last Filed: 12/04/20 12:06> Patient Problems: Active and Suspected Problems Acute on chronic anemia (Acute) Infected stage IV decubitus ulcer (Acute) Subjective: Patient seen and examined. Continues to be intermittently argumentative and unpleasant to staff. Amenable to surgery next week at this time. No other symptoms or complaints. - Physical Exam Vitals/I&O's: Vital Signs Temp Pulse Resp BP Pulse Ox 97.8 F 60 18 164/60 H 99 12/04/20 10:46 12/04/20 10:46 12/04/20 10:46 12/04/20 10:46 12/04/20 10:46 Oxygen Flow Rate (L/min) 2 Oxygen Delivery Method Room Air Weight: 254 lb 6.403 oz Body Mass Index (BMI) 42.3 Finger Stick Blood Glucose 111 Intake and Output for Last 24 Hours 12/02/20 12/03/20 12/04/20 23:59 23:59 23:59 Intake Total 4248.33 / 4368.33 2600.83 / 2600.83 170 / 170 Output Total 2125 / 2625 2525 / 2525 250 / 250 Balance 2123.33 / 1743.33 75.83 / 75.83 -80 / -80 General: Alert, Oriented x3, Cooperative HEENT: Atraumatic, PERRLA, EOMI, Normocephalic Neck: Supple, No JVD, Negative Carotid Bruits Lungs: Clear to auscultation, Normal air movement Cardiovascular: Regular rate, No murmurs Abdomen: Bowel Sounds Present, Soft, Non Tender, Non-Distended, Obese Extremities: No clubbing, No cyanosis, No edema, Capillary Refill Less than 3 Seconds Skin: - - Decubitus ulcer, dressing intact Musculoskeletal: No Tenderness to Palpation of Joints or Extremities Neurological: Cranial nerves II-XII grossly intact, Neuro grossly intact Psych/Mental Status: Flat Affect, - - Irritable Microbiology Past 72 Hours 12/01/20 22:50 Wound Abcess - Other Gram Stain - Final 12/01/20 22:50 Wound Abcess - Other Wound Culture - Preliminary Proteus mirabilis Laboratory Results 12/04/20 07:48: WBC 6.2, RBC 3.52 L, Hgb 8.2 L, Hct 28.7 L, MCV 81.5, MCH 23.3 L , MCHC 28.6 L, RDW Std Deviation 48.0 H, RDW Coeff of Ash 16.2 H, Plt Count 339, MPV 9.6 12/04/20 07:48: Sodium 141, Potassium 3.8, Chloride 110 H, Carbon Dioxide 26.0, Anion Gap 5, BUN 17, Creatinine 0.86, Estim Creat Clear Calc 57.90, Est GFR (MDRD) Af Amer 84, Est GFR (MDRD) Non-Af 70, BUN/Creatinine Ratio 19.7, Glucose 186 H, Calcium 8.3 L Current Medications Acetaminophen (Acetaminophen 325 Mg Tablet) 650 mg PO Q6H PRN PRN PRN Reason: Pain Score 1-10/Temp > 100.7 F Last Admin: 12/04/20 09:28 Dose: 650 mg Documented by: Albuterol Sulfate (Albuterol 2.5 Mg/3 Ml Vial.Neb.) 2.5 mg INHALATION Q4H PRN PRN PRN Reason: Shortness of breath, wheezing Amlodipine Besylate (Amlodipine 2.5 Mg Tablet) 2.5 mg PO DAILY [facility] Last Admin: 12/04/20 09:32 Dose: 2.5 mg Documented by: Aspirin (Aspirin 81 Mg Tab.Chew) 81 mg PO DAILY@0800 [facility] Last Admin: 12/04/20 09:29 Dose: 81 mg Documented by: Atorvastatin Calcium (Atorvastatin Calcium 20 Mg Tablet) 20 mg PO QHS [facility] Last Admin: 12/03/20 22:04 Dose: 20 mg Documented by: Buspirone HCl (Buspirone 5 Mg Tablet) 5 mg PO BID [facility] Last Admin: 12/04/20 09:29 Dose: 5 mg Documented by: Enoxaparin Sodium (Enoxaparin 40 Mg/0.4 Ml Syringe) 40 mg SC DAILY [facility] Last Admin: 12/04/20 09:30 Dose: 40 mg Documented by: Ferrous Sulfate (Ferrous Sulfate 325 Mg Tablet) 325 mg PO DAILY@0800 [facility] Last Admin: 12/04/20 09:29 Dose: 325 mg Documented by: Furosemide (Furosemide 40 Mg Tablet) 40 mg PO DAILY [facility] Last Admin: 12/04/20 09:30 Dose: 40 mg Documented by: Gabapentin (Gabapentin 600 Mg Tablet) 600 mg PO BID [facility] Last Admin: 12/04/20 09:31 Dose: 600 mg Documented by: Hydromorphone HCl (Hydromorphone 1 Mg/Ml Syringe) 1 mg IV Q4H PRN PRN PRN Reason: Pain Score 6-10 Last Admin: 12/04/20 11:04 Dose: 1 mg Documented by: Piperacillin Sod/Tazobactam (Sod 3.375 gm/ Sodium Chloride) 50 mls @ 100 mls/hr IV Q8 [facility] Last Infusion: 12/04/20 06:17 Dose: Infused Documented by: Sodium Chloride () 250 mls @ 15 mls/hr IV .[id number] PRN PRN Reason: Saline Flush Insulin Glargine (Insulin Glargine 100 Units/Ml Pen) 68 units SC QHS [facility] Last Admin: 12/03/20 22:01 Dose: 68 units Documented by: Insulin Human Lispro (Insulin Lispro 100 Unit/Ml Insuln.Pen) 0 unit SC ACHS [facility]; Protocol Last Admin: 12/04/20 05:52 Dose: 2 unit Documented by: Memantine (Memantine Hydrochloride 5 Mg Tablet) 5 mg PO DAILY [facility] Last Admin: 12/04/20 09:31 Dose: 5 mg Documented by: Metoprolol Tartrate (Metoprolol Tartrate 25 Mg Tablet) 25 mg PO BID [facility] Last Admin: 12/04/20 09:30 Dose: 25 mg Documented by: Nystatin (Nystatin Powder 15gm Bottle) 1 applic TOPICAL BID [facility]; Protocol Last Admin: 12/04/20 09:32 Dose: 1 applicatio Documented by: Ondansetron HCl (Ondansetron 4 Mg/2 Ml Vial) 4 mg IV Q8H PRN PRN PRN Reason: NAUSEA/VOMITING Last Admin: 12/03/20 10:32 Dose: 4 mg Documented by: Oxycodone HCl (Oxycodone 5 Mg Tablet) 5 mg PO Q4H PRN PRN PRN Reason: Pain Score 4-5 Last Admin: 12/04/20 09:27 Dose: 5 mg Documented by: Pantoprazole Sodium (Pantoprazole Sodium 20 Mg Tablet) 20 mg PO DAILY [facility] Last Admin: 12/04/20 09:32 Dose: 20 mg Documented by: Senna/Docusate Sodium (Senna/Docusate Sodium 1 Tablet) 2 tablet PO BID PRN PRN PRN Reason: Constipation Sodium Chloride (0.9% Saline Lock 10 Ml Syringe) 10 - 40 ml IV UD PRN PRN Reason: SALINE FLUSH Last Admin: 12/02/20 21:37 Dose: 10 ml Documented by: Sodium Hypochlorite (Dakin's Geovanna Half Strength (=0.25%)) 1 applic TOPICAL DAILY [facility]; Protocol Last Admin: 12/04/20 09:33 Dose: 1 dose Documented by: Tramadol HCl (Tramadol 50 Mg Tablet) 50 mg PO Q8H PRN PRN PRN Reason: Pain Score 4-10 Last Admin: 12/03/20 22:24 Dose: 50 mg Documented by: Venlafaxine HCl (Venlafaxine Xr 75 Mg Capsule) 75 mg PO DAILY [facility] Last Admin: 12/04/20 09:30 Dose: 75 mg Documented by: Zolpidem Tartrate (Zolpidem Tartrate 5 Mg Tablet) 5 mg PO QHS PRN PRN PRN Reason: INSOMNIA Medical Necessity - Tobacco Use Smoking Status: Current every day smoker Assessment/Plan All Active Problems Acute on chronic anemia (Acute) Infected stage IV decubitus ulcer (Acute) 1. 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 Dr. Mack consulted. Wound RN consult. Blood cultures pending. Wound culture growing Proteus. Continue IV Zosyn. As needed pain regimen. Patient had surgical intervention May 2020 at [facility], wound VAC was placed at that time and patient refused to take wound VAC off. Recent discharge from SNF approximately 2 weeks ago. PT/OT. ID consulted. Plan for surgical intervention on Sunday per Dr. Mack. PICC line ordered. 2. Type 2 diabetes [id number] with sliding scale insulin. Hemoglobin A1c 9.2%. 3. History of CVA-on aspirin, statin. Hold Plavix. 4. Carotid stenosis-on aspirin, statin. Hold Plavix. 5. CAD with history of CABG-continue medical management. On aspirin, statin, lisinopril, metoprolol. Plavix held. 6. Chronic anemia-at baseline, trend CBC. 7. Chronic COPD-no acute exacerbation. As needed albuterol aerosol. 8. Hypertension-stable, continue lisinopril, metoprolol, HCTZ. 9. Hyperlipidemia-continue statin. 10. PVD-on aspirin, statin. DVT prophylaxis-Lovenox subcu This patient was seen by SARAH Cadena under the supervision of Dr. Lopez. <West Lopez - Last Filed: 12/04/20 13:24> Subjective: Seen and examined. Patient agreed for surgery. Heart rate and blood pressure controlled. No fever. On IV antibiotics Physical exam General: Alert, Oriented x3, morbid obesity BMI 42.3 kg/m? HEENT: Atraumatic, PERRLA, EOMI, Normocephalic Oral: No Gingival or Mucosal Lesions/ Ulcerations Neck: Supple, No JVD, Negative Carotid Bruits Lungs: Air entry diminished in bilateral lung bases. No crepitation/rhonchi Cardiovascular: Regular rate, Regular Rhythm, Normal S1, Normal S2, No murmurs. Decreased pulses in his lower extremities Abdomen: Bowel Sounds Present, Soft, Non Tender, Non-Distended. LLQ colostomy : Chronic urinary Guy catheter on no renal angle tenderness. No suprapubic tenderness. Extremities: No edema, Capillary Refill Less than 3 Seconds Skin: Stage IV sacral decubitus ulcer, stage II right ischium decubitus ulcer. Bilateral heel stage I decubitus ulcer, present on admission. Musculoskeletal: Bilateral lower extremity weakness, 3/5, chronic. No Tenderness to Palpation of Joints or Extremities Neurological: Cranial nerves II-XII grossly intact, Deep Tendon Reflexes 2+/4 and Symmetrical, Neuro grossly intact Psych/Mental Status: Cooperative. Intermittent labile mood. - Physical Exam Vitals/I&O's: Vital Signs Temp Pulse Resp BP Pulse Ox 97.8 F 60 18 164/60 H 99 12/04/20 10:46 12/04/20 10:46 12/04/20 10:46 12/04/20 10:46 12/04/20 10:46 Oxygen Flow Rate (L/min) 2 Oxygen Delivery Method Room Air Weight: 254 lb 6.403 oz Body Mass Index (BMI) 42.3 Finger Stick Blood Glucose 111 Intake and Output for Last 24 Hours 12/02/20 12/03/20 12/04/20 23:59 23:59 23:59 Intake Total 4248.33 / 4368.33 2600.83 / 2600.83 670 / 670 Output Total 2125 / 2625 2525 / 2525 1650 / 1650 Balance 2123.33 / 1743.33 75.83 / 75.83 -980 / -980 Microbiology Past 72 Hours 12/01/20 22:50 Wound Abcess - Other Gram Stain - Final 12/01/20 22:50 Wound Abcess - Other Wound Culture - Preliminary Proteus mirabilis Laboratory Results 12/04/20 07:48: WBC 6.2, RBC 3.52 L, Hgb 8.2 L, Hct 28.7 L, MCV 81.5, MCH 23.3 L , MCHC 28.6 L, RDW Std Deviation 48.0 H, RDW Coeff of Ash 16.2 H, Plt Count 339, MPV 9.6 12/04/20 07:48: Sodium 141, Potassium 3.8, Chloride 110 H, Carbon Dioxide 26.0, Anion Gap 5, BUN 17, Creatinine 0.86, Estim Creat Clear Calc 57.90, Est GFR (MDRD) Af Amer 84, Est GFR (MDRD) Non-Af 70, BUN/Creatinine Ratio 19.7, Glucose 186 H, Calcium 8.3 L Current Medications Acetaminophen (Acetaminophen 325 Mg Tablet) 650 mg PO Q6H PRN PRN PRN Reason: Pain Score 1-10/Temp > 100.7 F Last Admin: 12/04/20 09:28 Dose: 650 mg Documented by: Albuterol Sulfate (Albuterol 2.5 Mg/3 Ml Vial.Neb.) 2.5 mg INHALATION Q4H PRN PRN PRN Reason: Shortness of breath, wheezing Amlodipine Besylate (Amlodipine 2.5 Mg Tablet) 2.5 mg PO DAILY [facility] Last Admin: 12/04/20 09:32 Dose: 2.5 mg Documented by: Aspirin (Aspirin 81 Mg Tab.Chew) 81 mg PO DAILY@0800 [facility] Last Admin: 12/04/20 09:29 Dose: 81 mg Documented by: Atorvastatin Calcium (Atorvastatin Calcium 20 Mg Tablet) 20 mg PO QHS [facility] Last Admin: 12/03/20 22:04 Dose: 20 mg Documented by: Buspirone HCl (Buspirone 5 Mg Tablet) 5 mg PO BID [facility] Last Admin: 12/04/20 09:29 Dose: 5 mg Documented by: Enoxaparin Sodium (Enoxaparin 40 Mg/0.4 Ml Syringe) 40 mg SC DAILY [facility] Last Admin: 12/04/20 09:30 Dose: 40 mg Documented by: Ferrous Sulfate (Ferrous Sulfate 325 Mg Tablet) 325 mg PO DAILY@0800 [facility] Last Admin: 12/04/20 09:29 Dose: 325 mg Documented by: Furosemide (Furosemide 40 Mg Tablet) 40 mg PO DAILY [facility] Last Admin: 12/04/20 09:30 Dose: 40 mg Documented by: Gabapentin (Gabapentin 600 Mg Tablet) 600 mg PO BID [facility] Last Admin: 12/04/20 09:31 Dose: 600 mg Documented by: Hydromorphone HCl (Hydromorphone 1 Mg/Ml Syringe) 1 mg IV Q4H PRN PRN PRN Reason: Pain Score 6-10 Last Admin: 12/04/20 11:04 Dose: 1 mg Documented by: Piperacillin Sod/Tazobactam (Sod 3.375 gm/ Sodium Chloride) 50 mls @ 100 mls/hr IV Q8 [facility] Last Infusion: 12/04/20 06:17 Dose: Infused Documented by: Sodium Chloride () 250 mls @ 15 mls/hr IV .[id number] PRN PRN Reason: Saline Flush Insulin Glargine (Insulin Glargine 100 Units/Ml Pen) 68 units SC QHS [facility] Last Admin: 12/03/20 22:01 Dose: 68 units Documented by: Insulin Human Lispro (Insulin Lispro 100 Unit/Ml Insuln.Pen) 0 unit SC ACHS [facility]; Protocol Last Admin: 12/04/20 05:52 Dose: 2 unit Documented by: Memantine (Memantine Hydrochloride 5 Mg Tablet) 5 mg PO DAILY [facility] Last Admin: 12/04/20 09:31 Dose: 5 mg Documented by: Metoprolol Tartrate (Metoprolol Tartrate 25 Mg Tablet) 25 mg PO BID [facility] Last Admin: 12/04/20 09:30 Dose: 25 mg Documented by: Nystatin (Nystatin Powder 15gm Bottle) 1 applic TOPICAL BID [facility]; Protocol Last Admin: 12/04/20 09:32 Dose: 1 applicatio Documented by: Ondansetron HCl (Ondansetron 4 Mg/2 Ml Vial) 4 mg IV Q8H PRN PRN PRN Reason: NAUSEA/VOMITING Last Admin: 12/03/20 10:32 Dose: 4 mg Documented by: Oxycodone HCl (Oxycodone 5 Mg Tablet) 5 mg PO Q4H PRN PRN PRN Reason: Pain Score 4-5 Last Admin: 12/04/20 09:27 Dose: 5 mg Documented by: Pantoprazole Sodium (Pantoprazole Sodium 20 Mg Tablet) 20 mg PO DAILY [facility] Last Admin: 12/04/20 09:32 Dose: 20 mg Documented by: Senna/Docusate Sodium (Senna/Docusate Sodium 1 Tablet) 2 tablet PO BID PRN PRN PRN Reason: Constipation Sodium Chloride (0.9% Saline Lock 10 Ml Syringe) 10 - 40 ml IV UD PRN PRN Reason: SALINE FLUSH Last Admin: 12/02/20 21:37 Dose: 10 ml Documented by: Sodium Hypochlorite (Dakin's Geovanna Half Strength (=0.25%)) 1 applic TOPICAL DAILY [facility]; Protocol Last Admin: 12/04/20 09:33 Dose: 1 dose Documented by: Tramadol HCl (Tramadol 50 Mg Tablet) 50 mg PO Q8H PRN PRN PRN Reason: Pain Score 4-10 Last Admin: 12/03/20 22:24 Dose: 50 mg Documented by: Venlafaxine HCl (Venlafaxine Xr 75 Mg Capsule) 75 mg PO DAILY [facility] Last Admin: 12/04/20 09:30 Dose: 75 mg Documented by: Zolpidem Tartrate (Zolpidem Tartrate 5 Mg Tablet) 5 mg PO QHS PRN PRN PRN Reason: INSOMNIA Assessment/Plan This patient was seen in conjunction with HUMANE AGENT, Marisa. I have independently interviewed and examined the patient and reviewed pertinent history, examination findings, laboratory and plan of management. I have reviewed the note and agree with the documented findings with the few additional points. In brief, patient is admitted for management of his stage IV recurrent sacral decubitus ulcer along with right buttock stage II decubitus ulcer, stage II right ischium decubitus ulcer and bilateral heel unstageable. Patient is type 2 diabetes mellitus. She had radiation treatment for vulvar cancer. She has s urgery for decubitus ulcer in May 2020 in [facility] and after that she was in rehab until November 2020. She also had wound VAC but she is noncooperative to the treatment. Patient has colostomy and chronic Guy catheter. Wound culture is showing Proteus mirabilis, MR RODRIGUEZ. Vancomycin discontinued continue Zosyn. Patient agreed to stay although she was planning for discharge in the morning. Plan for OR next week. Type 2 diabetes mellitus: A1c 9.2%. Glucose 224. Glucose is well controlled. Hemoglobin low, 8.2/28. She had 1 unit of PRBC transfusion after 7.6. Platelet count is 339. She is on baby aspirin and Lovenox 40 mg subcu daily Other comorbidities as mentioned above including history of a stroke carotid stenosis suggestive of peripheral arterial disease, coronary artery disease, COPD. I have discussed my assessment with HUMANE AGENTMarisa and orders have been reviewed. Clinical Impression(s) from Imaging Studies Chest X-Ray 12/01/20 17:45 IMPRESSION: No acute cardiopulmonary disease or major interval change. Inpatient E&M: [id number] Subs Hosp L2
--- NOTE | 2020-12-04 12:22 | NURSING ---
pt to ct scan and returned
--- NOTE | 2020-12-04 17:27 | PN.SURG_ITS ---
Patient Problems: Active and Suspected Problems Acute on chronic anemia (Acute) Infected stage IV decubitus ulcer (Acute) Subjective: Patient was upset about her meals. She is diabetic. The pressure sore is tolerable. - Physical Exam Vitals/I&O's: Vital Signs Temp Pulse Resp BP Pulse Ox 98.7 F 80 18 134/71 H 95 12/04/20 15:49 12/04/20 16:00 12/04/20 15:49 12/04/20 15:49 12/04/20 15:49 Oxygen Flow Rate (L/min) 2 Oxygen Delivery Method Room Air Weight: 254 lb 6.403 oz Body Mass Index (BMI) 42.3 Finger Stick Blood Glucose 111 Intake and Output for Last 24 Hours 12/02/20 12/03/20 12/04/20 23:59 23:59 23:59 Intake Total 4248.33 / 4368.33 2600.83 / 2600.83 670 / 670 Output Total 2125 / 2625 2525 / 2525 1650 / 1650 Balance 2123.33 / 1743.33 75.83 / 75.83 -980 / -980 General: Alert, Oriented x3 HEENT: PERRLA, EOMI Oral: Moist Mucosa Neck: Supple Abdomen: Soft, Non-Distended Skin: Ulcer/ Wound - sacral pressure sore is stable. No purulent drainage. Getting Dakin's dressing changes. Neurological: Cranial nerves II-XII grossly intact Psych/Mental Status: Normal Affect, Appropriate Microbiology Past 72 Hours 12/01/20 22:50 Wound Abcess - Other Gram Stain - Final 12/01/20 22:50 Wound Abcess - Other Wound Culture - Preliminary Proteus mirabilis Laboratory Results 12/04/20 07:48: WBC 6.2, RBC 3.52 L, Hgb 8.2 L, Hct 28.7 L, MCV 81.5, MCH 23.3 L , MCHC 28.6 L, RDW Std Deviation 48.0 H, RDW Coeff of Ash 16.2 H, Plt Count 339, MPV 9.6 12/04/20 07:48: Sodium 141, Potassium 3.8, Chloride 110 H, Carbon Dioxide 26.0, Anion Gap 5, BUN 17, Creatinine 0.86, Estim Creat Clear Calc 57.90, Est GFR (MDRD) Af Amer 84, Est GFR (MDRD) Non-Af 70, BUN/Creatinine Ratio 19.7, Glucose 186 H, Calcium 8.3 L Diagnostic Data Pelvis CT 12/04/20 10:27 IMPRESSION: 5 cm decubitus ulcer extending to the posterior cortex of the sacrum with the osteomyelitis and destruction of the distal sacrum. No abscess. Electronically Signed: Alex Mayes MD at 13:23 EST Tel , Service support , Current Medications Acetaminophen (Acetaminophen 325 Mg Tablet) 650 mg PO Q6H PRN PRN PRN Reason: Pain Score 1-10/Temp > 100.7 F Last Admin: 12/04/20 15:37 Dose: 650 mg Documented by: Albuterol Sulfate (Albuterol 2.5 Mg/3 Ml Vial.Neb.) 2.5 mg INHALATION Q4H PRN PRN PRN Reason: Shortness of breath, wheezing Amlodipine Besylate (Amlodipine 2.5 Mg Tablet) 2.5 mg PO DAILY [facility] Last Admin: 12/04/20 09:32 Dose: 2.5 mg Documented by: Aspirin (Aspirin 81 Mg Tab.Chew) 81 mg PO DAILY@0800 [facility] Last Admin: 12/04/20 09:29 Dose: 81 mg Documented by: Atorvastatin Calcium (Atorvastatin Calcium 20 Mg Tablet) 20 mg PO QHS [facility] Last Admin: 12/03/20 22:04 Dose: 20 mg Documented by: Buspirone HCl (Buspirone 5 Mg Tablet) 5 mg PO BID [facility] Last Admin: 12/04/20 09:29 Dose: 5 mg Documented by: Enoxaparin Sodium (Enoxaparin 40 Mg/0.4 Ml Syringe) 40 mg SC DAILY [facility] Last Admin: 12/04/20 09:30 Dose: 40 mg Documented by: Ferrous Sulfate (Ferrous Sulfate 325 Mg Tablet) 325 mg PO DAILY@0800 [facility] Last Admin: 12/04/20 09:29 Dose: 325 mg Documented by: Furosemide (Furosemide 40 Mg Tablet) 40 mg PO DAILY [facility] Last Admin: 12/04/20 09:30 Dose: 40 mg Documented by: Gabapentin (Gabapentin 600 Mg Tablet) 600 mg PO BID [facility] Last Admin: 12/04/20 09:31 Dose: 600 mg Documented by: Hydromorphone HCl (Hydromorphone 1 Mg/Ml Syringe) 1 mg IV Q4H PRN PRN PRN Reason: Pain Score 6-10 Last Admin: 12/04/20 11:04 Dose: 1 mg Documented by: Piperacillin Sod/Tazobactam (Sod 3.375 gm/ Sodium Chloride) 50 mls @ 100 mls/hr IV Q8 [facility] Last Admin: 12/04/20 15:00 Dose: 100 mls/hr Documented by: Sodium Chloride () 250 mls @ 15 mls/hr IV .[id number] PRN PRN Reason: Saline Flush Last Admin: 12/04/20 15:36 Dose: 15 mls/hr Documented by: Insulin Glargine (Insulin Glargine 100 Units/Ml Pen) 68 units SC QHS [facility] Last Admin: 12/03/20 22:01 Dose: 68 units Documented by: Insulin Human Lispro (Insulin Lispro 100 Unit/Ml Insuln.Pen) 0 unit SC ACHS [facility]; Protocol Last Admin: 12/04/20 14:38 Dose: Not Given Documented by: Memantine (Memantine Hydrochloride 5 Mg Tablet) 5 mg PO DAILY [facility] Last Admin: 12/04/20 09:31 Dose: 5 mg Documented by: Metoprolol Tartrate (Metoprolol Tartrate 25 Mg Tablet) 25 mg PO BID [facility] Last Admin: 12/04/20 09:30 Dose: 25 mg Documented by: Nystatin (Nystatin Powder 15gm Bottle) 1 applic TOPICAL BID [facility]; Protocol Last Admin: 12/04/20 09:32 Dose: 1 applicatio Documented by: Ondansetron HCl (Ondansetron 4 Mg/2 Ml Vial) 4 mg IV Q8H PRN PRN PRN Reason: NAUSEA/VOMITING Last Admin: 12/03/20 10:32 Dose: 4 mg Documented by: Oxycodone HCl (Oxycodone 5 Mg Tablet) 5 mg PO Q4H PRN PRN PRN Reason: Pain Score 4-5 Last Admin: 12/04/20 15:37 Dose: 5 mg Documented by: Pantoprazole Sodium (Pantoprazole Sodium 20 Mg Tablet) 20 mg PO DAILY [facility] Last Admin: 12/04/20 09:32 Dose: 20 mg Documented by: Senna/Docusate Sodium (Senna/Docusate Sodium 1 Tablet) 2 tablet PO BID PRN PRN PRN Reason: Constipation Sodium Chloride (0.9% Saline Lock 10 Ml Syringe) 10 - 40 ml IV UD PRN PRN Reason: SALINE FLUSH Last Admin: 12/02/20 21:37 Dose: 10 ml Documented by: Sodium Hypochlorite (Dakin's Geovanna Half Strength (=0.25%)) 1 applic TOPICAL DAILY [facility]; Protocol Last Admin: 12/04/20 09:33 Dose: 1 dose Documented by: Tramadol HCl (Tramadol 50 Mg Tablet) 50 mg PO Q8H PRN PRN PRN Reason: Pain Score 4-10 Last Admin: 12/03/20 22:24 Dose: 50 mg Documented by: Venlafaxine HCl (Venlafaxine Xr 75 Mg Capsule) 75 mg PO DAILY [facility] Last Admin: 12/04/20 09:30 Dose: 75 mg Documented by: Zolpidem Tartrate (Zolpidem Tartrate 5 Mg Tablet) 5 mg PO QHS PRN PRN PRN Reason: INSOMNIA Medical Necessity - Tobacco Use Smoking Status: Current every day smoker Assessment/Plan All Active Problems Acute on chronic anemia (Acute) Infected stage IV decubitus ulcer (Acute) 1. Infected sacral pressure sore, Stage IV. 2. Clinical osteomyelitis. 3. Diabetes mellitus. 4. Anemia of chronic disease, acute on chronic. 5. Smoker. Continue IV Zosyn. Wound culture shows Proteus mirabilis. Continue Dakin's dressing changes. CT Pelvis done today. It was suspicious for osteomyelitis. This pressure sore will not heal without surgical intervention. Recommend to the patient to proceed with surgical excision of this infected sacral pressure sore with partial ostectomy for osteomyelitis. Postoperatively will place the VAC. She has had the VAC before. A positive culture will necessitate antibiotic therapy. May need intermediate IV antibiotics through the placement of a PICC line. HgbA1c is 9.2. Before considering elective wound closure in the future with a myocutaneous or fasciocutaneous flaps, the HgbA1c needs to be less than 8. Anticipate increased metabolic demands from the infection and the pressure sore. Prealbumin was 11.2. Encourage nutritional supplementation with protein to help the healing process. She has anemia of chronic disease, acute on chronic. Her admission Hgb was 7.6. She received PRBC. Repeat Hgb was 8.2. After surgery, if there is stool contamination in the pressure sore, then she would need to be evaluated by General Surgery for a diverting colostomy. Initially patient was uncooperative and stated she did not want surgery at this time. She has since changed her mind and is willing to proceed with the surgery. Can schedule for this 12/07/20. It will be under general anesthesia. Patient was informed of the risks and complications of the procedure including alternatives to surgery. These were discussed with the patient personally. Patient voices understanding and wants to proceed. Potential risks and complications included but not inclusive of bleeding, infection seroma, hematoma, bruising, swelling, prolonged need for drains, loss of sensation to skin, partial or complete loss of skin flap and/or nipple graft, wound breakdown, need for wound care, poor scarring, poor aesthetic outcome, intra operative cardiac or neurologic events, DVT, PE, and reaction to anesthesia. Encouraged patient to stop smoking as it may have deleterious effects on wound healing. We discussed the current risks associated with COVID-19. While it is understood that there is a community spread of COVID-19, the risk of pawel COVID-19 while at [facility] ([facility]) is very low; however, the risk cannot be completely mitigated because of the community spread of the disease. We dis cussed in detail the risk of exposure to and/or potential harm posed by the COVID-19 virus with having a surgery/procedure at this time versus the risk of delaying the surgery/procedure. It is not possible to know either the risk of delaying the surgery or procedure or chance of getting an infection with perfect accuracy. The patient voices understanding, but does not want surgery at this time and will decide on surgery at a later date. Patient was notified that we will need to comply with any screening or testing [facility] wishes to perform or that surgery may be delayed for any positive results. Discussed with the patient that I was tested for COVID-19 on 04/08/20 which was negative and on 04/22/20 which was negative and on 05/06/20 which was negative and on 05/20/20 which was negative and on 06/03/20 which was negative and on 06/24/20 which was negative and on 07/15/20 which was negative and on 08/19/20 which was negative and on 09/09/20 which was negative and on 09/28/20 which was negative. My testing regimen at this time is to be COVID-19 tested every 2 weeks or so. I received the COVID-19 vaccine (Moderna) on 10/06/20 and the second dose was received on 11/03/20. Procedure Criteria Procedure Type: Elective COVID Risk Discussion: The surgeon/proceduralist and patient have discussed in detail the risk of exposure to and/or potential harm posed by the COVID-19 virus with having a surgery/procedure at this time versus the risk of delaying the surgery/procedure. It is not possible to know either the risk of delaying the surgery or procedure or chance of getting an infection with perfect accuracy, but a joint decision was made between the patient and the surgeon/proceduralist to proceed at this time with the scheduled surgery/procedure as indicated on the consent form. Inpatient E&M: 30861 Subs Hosp L1 - ICD-10 - L89.154, M86.9, E11.9, D64.9, F17.200
[2020-12-04] MEDS: 0.9% Saline Lock 10 ML Syringe IV (19:41)
[2020-12-04] MEDS: Atorvastatin Calcium 20 MG Tablet PO (21:43)
[2020-12-05] VITALS (7 sets, daily range): BP systolic 130–145; BP diastolic 43–60; PULSE 56–80; RESP 14–18; TEMP 36.3–36.8; O2SAT 96–100
[2020-12-05] MEDS: HYDROmorphone 1 MG/ML Syringe IV ×4 (02:47→22:32)
[2020-12-05] MEDS: 0.9% Saline Lock 10 ML Syringe IV ×5 (02:48→22:02)
[2020-12-05] MEDS: Acetaminophen 325 MG Tablet 650 MG PO (05:22)
[2020-12-05] MEDS: oxyCODONE 5 MG Tablet PO ×2 (05:23→21:48)
[2020-12-05] MEDS: Insulin Lispro 100 UNIT/ML INSULN.PEN SC ×4 (06:21→22:19)
[2020-12-05] MEDS: DAKIN'S SOL HALF STRENGTH (=0.25%) 1 APPLIC TOPICAL (06:22)
[2020-12-05 07:25] LABS: Prealbumin 11.2 mg/dL (20.0-40.0)
[2020-12-05] MEDS: Enoxaparin 40 MG/0.4 ML Syringe SC (09:04)
[2020-12-05] MEDS: Pantoprazole Sodium 20 MG Tablet PO (09:05)
[2020-12-05] MEDS: Aspirin 81 MG TAB.CHEW PO (09:05)
[2020-12-05] MEDS: Gabapentin 600 MG Tablet PO ×2 (09:05→22:09)
[2020-12-05] MEDS: amLODIPine 2.5 MG Tablet PO (09:05)
[2020-12-05] MEDS: Furosemide 40 MG Tablet PO (09:05)
[2020-12-05] MEDS: Ferrous Sulfate 325 MG Tablet PO (09:05)
[2020-12-05] MEDS: Venlafaxine XR 75 MG Capsule PO (09:06)
[2020-12-05] MEDS: Nystatin Powder 15gm Bottle 1 APPLIC TOPICAL (09:06)
[2020-12-05] MEDS: busPIRone 5 MG Tablet PO ×2 (09:06→22:07)
[2020-12-05] MEDS: Memantine Hydrochloride 5 MG Tablet PO (09:06)
--- NOTE | 2020-12-05 10:45 | PN_ITS ---
<ModeMarisa SLIP COVER SEAMSTRESS - Last Filed: 12/05/20 10:55> Patient Problems: Active and Suspected Problems Acute on chronic anemia (Acute) Infected stage IV decubitus ulcer (Acute) Subjective: Patient seen and examined. Upset with dietary staff and complaining about dietary restrictions. Patient requesting increase in pain medication and is concerned for postoperative pain following surgery on Sunday. She denies fever, chills. No other concerns at this time. - Physical Exam Vitals/I&O's: Vital Signs Temp Pulse Resp BP Pulse Ox 98.3 F 60 14 132/43 H 97 12/05/20 09:35 12/05/20 09:37 12/05/20 09:35 12/05/20 09:35 12/05/20 09:35 Oxygen Flow Rate (L/min) 2 Oxygen Delivery Method Room Air Weight: 254 lb 6.403 oz Body Mass Index (BMI) 42.3 Finger Stick Blood Glucose 111 Intake and Output for Last 24 Hours 12/03/20 12/04/20 12/05/20 23:59 23:59 23:59 Intake Total 2600.83 / 2600.83 770 / 770 1200 / 1200 Output Total 2525 / 2525 2600 / 2600 1000 / 1000 Balance 75.83 / 75.83 -1830 / -1830 200 / 200 General: Alert, Oriented x3, Cooperative HEENT: Atraumatic, PERRLA, EOMI, Normocephalic Neck: Supple, No JVD, Negative Carotid Bruits Lungs: Clear to auscultation, Normal air movement Cardiovascular: Regular rate, No murmurs Abdomen: Bowel Sounds Present, Soft, Non Tender, Non-Distended, Obese Extremities: No clubbing, No cyanosis, No edema Skin: No rashes, - - Decubitus ulcer, dressing intact Musculoskeletal: No Tenderness to Palpation of Joints or Extremities Neurological: Cranial nerves II-XII grossly intact, Neuro grossly intact Psych/Mental Status: Flat Affect, Impulsive, - - Irritable Microbiology Past 72 Hours 12/01/20 22:50 Wound Abcess - Other Gram Stain - Final 12/01/20 22:50 Wound Abcess - Other Wound Culture - Preliminary Proteus mirabilis Laboratory Results 12/05/20 05:20: Prealbumin 11.2 L Current Medications Acetaminophen (Acetaminophen 325 Mg Tablet) 650 mg PO Q6H PRN PRN PRN Reason: Pain Score 1-10/Temp > 100.7 F Last Admin: 12/05/20 05:22 Dose: 650 mg Documented by: Albuterol Sulfate (Albuterol 2.5 Mg/3 Ml Vial.Neb.) 2.5 mg INHALATION Q4H PRN PRN PRN Reason: Shortness of breath, wheezing Amlodipine Besylate (Amlodipine 2.5 Mg Tablet) 2.5 mg PO DAILY [facility] Last Admin: 12/05/20 09:05 Dose: 2.5 mg Documented by: Aspirin (Aspirin 81 Mg Tab.Chew) 81 mg PO DAILY@0800 [facility] Last Admin: 12/05/20 09:05 Dose: 81 mg Documented by: Atorvastatin Calcium (Atorvastatin Calcium 20 Mg Tablet) 20 mg PO QHS [facility] Last Admin: 12/04/20 21:43 Dose: 20 mg Documented by: Buspirone HCl (Buspirone 5 Mg Tablet) 5 mg PO BID [facility] Last Admin: 12/05/20 09:06 Dose: 5 mg Documented by: Enoxaparin Sodium (Enoxaparin 40 Mg/0.4 Ml Syringe) 40 mg SC DAILY [facility] Last Admin: 12/05/20 09:04 Dose: 40 mg Documented by: Ferrous Sulfate (Ferrous Sulfate 325 Mg Tablet) 325 mg PO DAILY@0800 [facility] Last Admin: 12/05/20 09:05 Dose: 325 mg Documented by: Furosemide (Furosemide 40 Mg Tablet) 40 mg PO DAILY [facility] Last Admin: 12/05/20 09:05 Dose: 40 mg Documented by: Gabapentin (Gabapentin 600 Mg Tablet) 600 mg PO BID [facility] Last Admin: 12/05/20 09:05 Dose: 600 mg Documented by: Hydromorphone HCl (Hydromorphone 1 Mg/Ml Syringe) 1 mg IV Q4H PRN PRN PRN Reason: Pain Score 6-10 Last Admin: 12/05/20 06:51 Dose: 1 mg Documented by: Piperacillin Sod/Tazobactam (Sod 3.375 gm/ Sodium Chloride) 50 mls @ 100 mls/hr IV Q8 [facility] Last Infusion: 12/05/20 06:07 Dose: Infused Documented by: Sodium Chloride () 250 mls @ 15 mls/hr IV .[id number] PRN PRN Reason: Saline Flush Last Infusion: 12/05/20 09:03 Dose: Infused Documented by: Insulin Glargine (Insulin Glargine 100 Units/Ml Pen) 68 units SC QHS [facility] Last Admin: 12/04/20 21:55 Dose: 68 units Documented by: Insulin Human Lispro (Insulin Lispro 100 Unit/Ml Insuln.Pen) 0 unit SC ACHS [facility]; Protocol Last Admin: 12/05/20 06:21 Dose: 2 unit Documented by: Memantine (Memantine Hydrochloride 5 Mg Tablet) 5 mg PO DAILY [facility] Last Admin: 12/05/20 09:06 Dose: 5 mg Documented by: Metoprolol Tartrate (Metoprolol Tartrate 25 Mg Tablet) 25 mg PO BID [facility] Last Admin: 12/04/20 21:44 Dose: 25 mg Documented by: Nystatin (Nystatin Powder 15gm Bottle) 1 applic TOPICAL BID [facility]; Protocol Last Admin: 12/05/20 09:06 Dose: 1 applicatio Documented by: Ondansetron HCl (Ondansetron 4 Mg/2 Ml Vial) 4 mg IV Q8H PRN PRN PRN Reason: NAUSEA/VOMITING Last Admin: 12/03/20 10:32 Dose: 4 mg Documented by: Oxycodone HCl (Oxycodone 5 Mg Tablet) 5 mg PO Q4H PRN PRN PRN Reason: Pain Score 4-5 Last Admin: 12/05/20 05:23 Dose: 5 mg Documented by: Pantoprazole Sodium (Pantoprazole Sodium 20 Mg Tablet) 20 mg PO DAILY [facility] Last Admin: 12/05/20 09:05 Dose: 20 mg Documented by: Senna/Docusate Sodium (Senna/Docusate Sodium 1 Tablet) 2 tablet PO BID PRN PRN PRN Reason: Constipation Sodium Chloride (0.9% Saline Lock 10 Ml Syringe) 10 - 40 ml IV UD PRN PRN Reason: SALINE FLUSH Last Admin: 12/05/20 06:53 Dose: 10 ml Documented by: Sodium Hypochlorite (Dakin's Geovanna Half Strength (=0.25%)) 1 applic TOPICAL DAILY [facility]; Protocol Last Admin: 12/05/20 06:22 Dose: 1 dose Documented by: Tramadol HCl (Tramadol 50 Mg Tablet) 50 mg PO Q8H PRN PRN PRN Reason: Pain Score 4-10 Last Admin: 12/03/20 22:24 Dose: 50 mg Documented by: Venlafaxine HCl (Venlafaxine Xr 75 Mg Capsule) 75 mg PO DAILY [facility] Last Admin: 12/05/20 09:06 Dose: 75 mg Documented by: Zolpidem Tartrate (Zolpidem Tartrate 5 Mg Tablet) 5 mg PO QHS PRN PRN PRN Reason: INSOMNIA Medical Necessity - Tobacco Use Smoking Status: Current every day smoker Assessment/Plan All Active Problems Acute on chronic anemia (Acute) Infected stage IV decubitus ulcer (Acute) 1. 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 Dr. Mack consulted. Wound RN consult. Blood cultures pending. Wound culture growing Proteus. Continue IV Zosyn. As needed pain regimen. Patient had surgical intervention May 2020 at [facility], wound VAC was placed at that time and patient refused to take wound VAC off. Recent discharge from SNF approximately 2 weeks ago. PT/OT. ID consulted. Plan for surgical intervention on Sunday per Dr. Mack. PICC placed. CT of pelvis shows a 5 cm decubitus ulcer extending to the posterior cortex of the sacrum with osteomyelitis and destruction of the distal sacrum. 2. Type 2 diabetes [id number] with sliding scale insulin. Hemoglobin A1c 9.2%. Patient has her own meter to check glucose levels. Increase to high- dose sliding scale insulin. 3. History of CVA-on aspirin, statin. Hold Plavix. 4. Carotid stenosis-on aspirin, statin. Hold Plavix. 5. CAD with history of CABG-continue medical management. On aspirin, statin, lisinopril, metoprolol. Plavix held. 6. Chronic anemia-at baseline, trend CBC. 7. Chronic COPD-no acute exacerbation. As needed albuterol aerosol. 8. Hypertension-stable, continue lisinopril, metoprolol, HCTZ. 9. Hyperlipidemia-continue statin. 10. PVD-on aspirin, statin. DVT prophylaxis-Lovenox subcu This patient was seen by SARAH Cadena under the supervision of Dr. Lopez. <[place] Lopez - Last Filed: 12/05/20 12:12> Subjective: Afebrile. Heart rate in 50s to 60s. Blood pressure normal. CT findings discussed with the patient. Patient concerned of postoperative pain following surgery on Sunday and demanding well control of pain with Dilaudid. Physical exam General: Alert, Oriented x3, morbid obesity BMI 42.3 kg/m? HEENT: Atraumatic, PERRLA, EOMI, Normocephalic Oral: No Gingival or Mucosal Lesions/ Ulcerations Neck: Supple, No JVD, Negative Carotid Bruits Lungs: Air entry diminished in bilateral lung bases. No crepitation/rhonchi Cardiovascular: Regular rate, Regular Rhythm, Normal S1, Normal S2, No murmurs. Decreased pulses in his lower extremities Abdomen: Bowel Sounds Present, Soft, Non Tender, Non-Distended. LLQ colostomy : Chronic urinary Guy catheter on no renal angle tenderness. No suprapubic tenderness. Extremities: No edema, Capillary Refill Less than 3 Seconds Skin: Stage IV sacral decubitus ulcer, stage II right ischium decubitus ulcer. Bilateral heel stage I decubitus ulcer, present on admission. Musculoskeletal: Bilateral lower extremity weakness, 3/5, chronic. No Tenderness to Palpation of Joints or Extremities Neurological: Cranial nerves II-XII grossly intact, Deep Tendon Reflexes 2+/4 and Symmetrical, Neuro grossly intact Psych/Mental Status: Irritable, demanding, intermittent labile mood. - Physical Exam Vitals/I&O's: Vital Signs Temp Pulse Resp BP Pulse Ox 98.3 F 60 14 132/43 H 97 12/05/20 09:35 12/05/20 09:37 12/05/20 09:35 12/05/20 09:35 12/05/20 09:35 Oxygen Flow Rate (L/min) 2 Oxygen Delivery Method Room Air Weight: 254 lb 6.403 oz Body Mass Index (BMI) 42.3 Finger Stick Blood Glucose 111 Intake and Output for Last 24 Hours 12/03/20 12/04/20 12/05/20 23:59 23:59 23:59 Intake Total 2600.83 / 2600.83 770 / 770 1200 / 1200 Output Total 2525 / 2525 2600 / 2600 1000 / 1000 Balance 75.83 / 75.83 -1830 / -1830 200 / 200 Microbiology Past 72 Hours 12/01/20 22:50 Wound Abcess - Other Gram Stain - Final 12/01/20 22:50 Wound Abcess - Other Wound Culture - Preliminary Proteus mirabilis Laboratory Results 12/05/20 05:20: Prealbumin 11.2 L Current Medications Acetaminophen (Acetaminophen 325 Mg Tablet) 650 mg PO Q6H PRN PRN PRN Reason: Pain Score 1-10/Temp > 100.7 F Last Admin: 12/05/20 05:22 Dose: 650 mg Documented by: Albuterol Sulfate (Albuterol 2.5 Mg/3 Ml Vial.Neb.) 2.5 mg INHALATION Q4H PRN PRN PRN Reason: Shortness of breath, wheezing Amlodipine Besylate (Amlodipine 2.5 Mg Tablet) 2.5 mg PO DAILY [facility] Last Admin: 12/05/20 09:05 Dose: 2.5 mg Documented by: Aspirin (Aspirin 81 Mg Tab.Chew) 81 mg PO DAILY@0800 [facility] Last Admin: 12/05/20 09:05 Dose: 81 mg Documented by: Atorvastatin Calcium (Atorvastatin Calcium 20 Mg Tablet) 20 mg PO QHS [facility] Last Admin: 12/04/20 21:43 Dose: 20 mg Documented by: Buspirone HCl (Buspirone 5 Mg Tablet) 5 mg PO BID [facility] Last Admin: 12/05/20 09:06 Dose: 5 mg Documented by: Enoxaparin Sodium (Enoxaparin 40 Mg/0.4 Ml Syringe) 40 mg SC DAILY [facility] Last Admin: 12/05/20 09:04 Dose: 40 mg Documented by: Ferrous Sulfate (Ferrous Sulfate 325 Mg Tablet) 325 mg PO DAILY@0800 [facility] Last Admin: 12/05/20 09:05 Dose: 325 mg Documented by: Furosemide (Furosemide 40 Mg Tablet) 40 mg PO DAILY [facility] Last Admin: 12/05/20 09:05 Dose: 40 mg Documented by: Gabapentin (Gabapentin 600 Mg Tablet) 600 mg PO BID [facility] Last Admin: 12/05/20 09:05 Dose: 600 mg Documented by: Hydromorphone HCl (Hydromorphone 1 Mg/Ml Syringe) 1 mg IV Q4H PRN PRN PRN Reason: Pain Score 6-10 Last Admin: 12/05/20 06:51 Dose: 1 mg Documented by: Piperacillin Sod/Tazobactam (Sod 3.375 gm/ Sodium Chloride) 50 mls @ 100 mls/hr IV Q8 [facility] Last Infusion: 12/05/20 06:07 Dose: Infused Documented by: Sodium Chloride () 250 mls @ 15 mls/hr IV .[id number] PRN PRN Reason: Saline Flush Last Infusion: 12/05/20 09:03 Dose: Infused Documented by: Insulin Glargine (Insulin Glargine 100 Units/Ml Pen) 68 units SC QHS [facility] Last Admin: 12/04/20 21:55 Dose: 68 units Documented by: Insulin Human Lispro (Insulin Lispro 100 Unit/Ml Insuln.Pen) 0 unit SC ACHS [facility]; Protocol Last Admin: 12/05/20 06:21 Dose: 2 unit Documented by: Memantine (Memantine Hydrochloride 5 Mg Tablet) 5 mg PO DAILY [facility] Last Admin: 12/05/20 09:06 Dose: 5 mg Documented by: Metoprolol Tartrate (Metoprolol Tartrate 25 Mg Tablet) 25 mg PO BID [facility] Last Admin: 12/04/20 21:44 Dose: 25 mg Documented by: Nystatin (Nystatin Powder 15gm Bottle) 1 applic TOPICAL BID [facility]; Protocol Last Admin: 12/05/20 09:06 Dose: 1 applicatio Documented by: Ondansetron HCl (Ondansetron 4 Mg/2 Ml Vial) 4 mg IV Q8H PRN PRN PRN Reason: NAUSEA/VOMITING Last Admin: 12/03/20 10:32 Dose: 4 mg Documented by: Oxycodone HCl (Oxycodone 5 Mg Tablet) 5 mg PO Q4H PRN PRN PRN Reason: Pain Score 4-5 Last Admin: 12/05/20 05:23 Dose: 5 mg Documented by: Pantoprazole Sodium (Pantoprazole Sodium 20 Mg Tablet) 20 mg PO DAILY [facility] Last Admin: 12/05/20 09:05 Dose: 20 mg Documented by: Senna/Docusate Sodium (Senna/Docusate Sodium 1 Tablet) 2 tablet PO BID PRN PRN PRN Reason: Constipation Sodium Chloride (0.9% Saline Lock 10 Ml Syringe) 10 - 40 ml IV UD PRN PRN Reason: SALINE FLUSH Last Admin: 12/05/20 06:53 Dose: 10 ml Documented by: Sodium Hypochlorite (Dakin's Geovanna Half Strength (=0.25%)) 1 applic TOPICAL DAILY [facility]; Protocol Last Admin: 12/05/20 06:22 Dose: 1 dose Documented by: Tramadol HCl (Tramadol 50 Mg Tablet) 50 mg PO Q8H PRN PRN PRN Reason: Pain Score 4-10 Last Admin: 12/05/20 10:59 Dose: 50 mg Documented by: Venlafaxine HCl (Venlafaxine Xr 75 Mg Capsule) 75 mg PO DAILY [facility] Last Admin: 12/05/20 09:06 Dose: 75 mg Documented by: Zolpidem Tartrate (Zolpidem Tartrate 5 Mg Tablet) 5 mg PO QHS PRN PRN PRN Reason: INSOMNIA Assessment/Plan This patient was seen in conjunction with Marisa SOLORZANO. I have independently interviewed and examined the patient and reviewed pertinent history, examination findings, laboratory and plan of management. I have reviewed the note and agree with the documented findings with the few additional points. In brief, patient is admitted for management of his stage IV recurrent sacral decubitus ulcer along with right buttock stage II decubitus ulcer, stage II right ischium decubitus ulcer and bilateral heel unstageable. Patient is type 2 diabetes mellitus. She had radiation treatment for vulvar cancer. She has surgery for decubitus ulcer in May 2020 in [facility] and after that she was in rehab until November 2020. She also had wound VAC but she is noncooperative to the treatment. Patient has colostomy and chronic Guy catheter. Wound culture is showing Proteus mirabilis, MR RODRIGUEZ. Vancomycin discontinued, Zosyn continued. Patient agreed to stay although she was planning for discharge in the morning. Seen by Dr. Mack. Plan for OR on next Sunday. CT pelvis was done which shows 5 cm decubitus ulcer extending to the posterior cortex of sacrum with osteomyelitis and destruction of the distal sacrum. No abscess. CT findings discussed with the patient. Type 2 diabetes mellitus: A1c 9.2%. Glucose 224. Glucose is well controlled. Hemoglobin low, 8.2/28. She had 1 unit of PRBC transfusion after 7.6. Platelet count is 339. She is on baby aspirin and Lovenox 40 mg subcu daily. Hemoglobin has been stable. Other comorbidities as mentioned above including history of a stroke, carotid stenosis suggestive of peripheral arterial disease, coronary artery disease, COPD. I have discussed my assessment with Marisa SOLORZANO and orders have been reviewed Clinical Impression(s) from Imaging Studies Chest X-Ray 12/01/20 17:45 IMPRESSION: No acute cardiopulmonary disease or major interval change. Pelvis CT 12/04/20 10:27 IMPRESSION: 5 cm decubitus ulcer extending to the posterior cortex of the sacrum with the osteomyelitis and destruction of the distal sacrum. No abscess. Electronically Signed: Alex Mayes MD at 13:23 EST Tel , Service support , Inpatient E&M: [id number] Subs Hosp L2
[2020-12-05] MEDS: traMADol 50 MG Tablet PO ×2 (10:59→21:48)
[2020-12-05] MEDS: Metoprolol Tartrate 25 MG Tablet PO ×2 (12:25→22:08)
[2020-12-05] MEDS: Atorvastatin Calcium 20 MG Tablet PO (22:07)
[2020-12-05] MEDS: Ondansetron 4 MG/2 ML Vial IV (22:12)
--- NOTE | 2020-12-05 22:15 | NURSING ---
Pt checked own blood glucose with result of 296. Sliding scale covered per order.
[2020-12-06] VITALS (7 sets, daily range): BP systolic 118–147; BP diastolic 35–79; PULSE 67–75; RESP 16–18; TEMP 36.6–37; O2SAT 98–100
[2020-12-06] MEDS: HYDROmorphone 1 MG/ML Syringe IV ×4 (02:30→20:59)
[2020-12-06] MEDS: 0.9% Saline Lock 10 ML Syringe IV ×4 (02:30→20:59)
[2020-12-06 04:54] LABS: Hematocrit 27.2 % (37-47); Hemoglobin 8.1 g/dL (12.0-15.0); Mean Corp Hgb Conc 29.8 g/dL (32-36); Mean Corpuscular Hgb 23.6 pg (27.0-32.0); Mean Corpuscular Volume 79.3 fL (81-99); Mean Platelet Vol. 9.4 fl (6.2-12.0); Platelet Count 290 K/mm3 (150-450); RBC Distribution Width CV 16.2 % (11.6-14.6); RBC Distribution Width SD 46.8 fl (35.1-43.9); Red Blood Count 3.43 M/mm3 (4.2-5.4); White Blood Count 7.4 K/mm3 (4.4-11.0)
[2020-12-06 05:09] LABS: Anion Gap 5 (5-15); BUN 32 mg/dL (7-18); BUN/Creat Ratio 40.3 RATIO (10-20); Calcium,Total 8.3 mg/dL (8.5-10.1); Chloride 102 mmol/L (98-107); EST Glomerular Filtration Rate 77 mL/min (>60); Est Glom Filt Rate - Afr Amer 93 mL/min (>60); Estimated Creatinine Clearance 62.24 ml/min; Glucose 235 mg/dL (74-106); Potassium 4.1 mmol/L (3.5-5.1); Sodium Level 135 mmol/L (136-145)
[2020-12-06] MEDS: Insulin Lispro 100 UNIT/ML INSULN.PEN SC ×4 (06:41→22:32)
--- NOTE | 2020-12-06 06:50 | NURSING ---
Pt checked own blood glucose, result 200. Sliding scale dose per order.
[2020-12-06] MEDS: Aspirin 81 MG TAB.CHEW PO (07:59)
[2020-12-06] MEDS: Ferrous Sulfate 325 MG Tablet PO (07:59)
[2020-12-06] MEDS: Nystatin Powder 15gm Bottle 1 APPLIC TOPICAL ×2 (09:45→21:03)
[2020-12-06] MEDS: Memantine Hydrochloride 5 MG Tablet PO (09:45)
[2020-12-06] MEDS: Enoxaparin 40 MG/0.4 ML Syringe SC (09:45)
[2020-12-06] MEDS: amLODIPine 2.5 MG Tablet PO (09:46)
[2020-12-06] MEDS: Pantoprazole Sodium 20 MG Tablet PO (09:46)
[2020-12-06] MEDS: Furosemide 40 MG Tablet PO (09:46)
[2020-12-06] MEDS: Metoprolol Tartrate 25 MG Tablet PO ×2 (09:46→21:03)
[2020-12-06] MEDS: Venlafaxine XR 75 MG Capsule PO (09:47)
[2020-12-06] MEDS: Gabapentin 600 MG Tablet PO ×2 (09:47→21:04)
[2020-12-06] MEDS: busPIRone 5 MG Tablet PO ×2 (09:48→21:02)
--- NOTE | 2020-12-06 10:35 | PN_ITS ---
<Ace [employer]oss[employer] CLIENT SALES AND SERVICE OFFICER - Last Filed: 12/06/20 10:43> Patient Problems: Active and Suspected Problems Acute on chronic anemia (Acute) Infected stage IV decubitus ulcer (Acute) Subjective: Patient seen and examined. Continues to voice concern regarding postoperative pain. Pain management discussed with patient. Denies new symptoms or complaints. - Physical Exam Vitals/I&O's: Vital Signs Temp Pulse Resp BP Pulse Ox 98.6 F 67 16 147/55 H 100 12/06/20 08:20 12/06/20 09:46 12/06/20 08:20 12/06/20 08:20 12/06/20 08:20 Oxygen Flow Rate (L/min) 2 Oxygen Delivery Method Room Air Weight: 254 lb 6.403 oz Body Mass Index (BMI) 42.3 Finger Stick Blood Glucose 111 Intake and Output for Last 24 Hours 12/04/20 12/05/20 12/06/20 23:59 23:59 23:59 Intake Total 770 / 770 1700 / 1700 470 / 470 Output Total 2600 / 2600 2900 / 2900 500 / 500 Balance -1830 / -1830 -1200 / -1200 -30 / -30 General: Alert, Oriented x3, Cooperative HEENT: Atraumatic, PERRLA, EOMI, Normocephalic Neck: Supple, No JVD, Negative Carotid Bruits Lungs: Clear to auscultation, Normal air movement Cardiovascular: Regular rate, No murmurs Abdomen: Bowel Sounds Present, Soft, Non Tender, Non-Distended, Obese, - - Colostomy intact Extremities: No clubbing, No cyanosis, No edema, Capillary Refill Less than 3 Seconds Skin: No rashes, No breakdown, - - Decubitus ulcer, dressing intact Musculoskeletal: No Tenderness to Palpation of Joints or Extremities Neurological: Cranial nerves II-XII grossly intact, Neuro grossly intact Psych/Mental Status: Flat Affect Microbiology Past 72 Hours 12/01/20 16:00 Blood Culture (Wb) - Anticubital Left Blood Culture - Preliminary No growth in 48 hours. 12/01/20 15:42 Blood Culture (Wb) - Left Forearm Blood Culture - Preliminary No growth in 48 hours. 12/01/20 22:50 Wound Abcess - Other Gram Stain - Final 12/01/20 22:50 Wound Abcess - Other Wound Culture - Final Proteus mirabilis Laboratory Results 12/06/20 04:30: WBC 7.4, RBC 3.43 L, Hgb 8.1 L, Hct 27.2 L, MCV 79.3 L, MCH 23.6 L, MCHC 29.8 L, RDW Std Deviation 46.8 H, RDW Coeff of Ash 16.2 H, Plt Count 290, MPV 9.4 12/06/20 04:30: Sodium 135 L, Potassium 4.1, Chloride 102, Carbon Dioxide 28.0, Anion Gap 5, BUN 32 H, Creatinine 0.80, Estim Creat Clear Calc 62.24, Est GFR (MDRD) Af Amer 93, Est GFR (MDRD) Non-Af 77, BUN/Creatinine Ratio 40.3 H, Glucose 235 H, Calcium 8.3 L Current Medications Acetaminophen (Acetaminophen 325 Mg Tablet) 650 mg PO Q6H PRN PRN PRN Reason: Pain Score 1-10/Temp > 100.7 F Last Admin: 12/05/20 05:22 Dose: 650 mg Documented by: Albuterol Sulfate (Albuterol 2.5 Mg/3 Ml Vial.Neb.) 2.5 mg INHALATION Q4H PRN PRN PRN Reason: Shortness of breath, wheezing Amlodipine Besylate (Amlodipine 2.5 Mg Tablet) 2.5 mg PO DAILY [facility] Last Admin: 12/06/20 09:46 Dose: 2.5 mg Documented by: Aspirin (Aspirin 81 Mg Tab.Chew) 81 mg PO DAILY@0800 [facility] Last Admin: 12/06/20 07:59 Dose: 81 mg Documented by: Atorvastatin Calcium (Atorvastatin Calcium 20 Mg Tablet) 20 mg PO QHS [facility] Last Admin: 12/05/20 22:07 Dose: 20 mg Documented by: Buspirone HCl (Buspirone 5 Mg Tablet) 5 mg PO BID [facility] Last Admin: 12/06/20 09:48 Dose: 5 mg Documented by: Enoxaparin Sodium (Enoxaparin 40 Mg/0.4 Ml Syringe) 40 mg SC DAILY [facility] Last Admin: 12/06/20 09:45 Dose: 40 mg Documented by: Ferrous Sulfate (Ferrous Sulfate 325 Mg Tablet) 325 mg PO DAILY@0800 [facility] Last Admin: 12/06/20 07:59 Dose: 325 mg Documented by: Furosemide (Furosemide 40 Mg Tablet) 40 mg PO DAILY [facility] Last Admin: 12/06/20 09:46 Dose: 40 mg Documented by: Gabapentin (Gabapentin 600 Mg Tablet) 600 mg PO BID [facility] Last Admin: 12/06/20 09:47 Dose: 600 mg Documented by: Hydromorphone HCl (Hydromorphone 1 Mg/Ml Syringe) 1 mg IV Q4H PRN PRN PRN Reason: Pain Score 6-10 Last Admin: 12/06/20 06:37 Dose: 1 mg Documented by: Piperacillin Sod/Tazobactam (Sod 3.375 gm/ Sodium Chloride) 50 mls @ 100 mls/hr IV Q8 [facility] Last Infusion: 12/06/20 07:10 Dose: Infused Documented by: Sodium Chloride () 250 mls @ 15 mls/hr IV .[id number] PRN PRN Reason: Saline Flush Last Infusion: 12/05/20 09:03 Dose: Infused Documented by: Insulin Glargine (Insulin Glargine 100 Units/Ml Pen) 68 units SC QHS [facility] Last Admin: 12/05/20 22:16 Dose: 68 units Documented by: Insulin Human Lispro (Insulin Lispro 100 Unit/Ml Insuln.Pen) 0 unit SC [facility]; Protocol Last Admin: 12/06/20 06:41 Dose: 3 unit Documented by: Memantine (Memantine Hydrochloride 5 Mg Tablet) 5 mg PO DAILY [facility] Last Admin: 12/06/20 09:45 Dose: 5 mg Documented by: Metoprolol Tartrate (Metoprolol Tartrate 25 Mg Tablet) 25 mg PO BID [facility] Last Admin: 12/06/20 09:46 Dose: 25 mg Documented by: Nystatin (Nystatin Powder 15gm Bottle) 1 applic TOPICAL BID [facility]; Protocol Last Admin: 12/06/20 09:45 Dose: 1 applicatio Documented by: Ondansetron HCl (Ondansetron 4 Mg/2 Ml Vial) 4 mg IV Q8H PRN PRN PRN Reason: NAUSEA/VOMITING Last Admin: 12/05/20 22:12 Dose: 4 mg Documented by: Oxycodone HCl (Oxycodone 5 Mg Tablet) 5 mg PO Q4H PRN PRN PRN Reason: Pain Score 4-5 Last Admin: 12/05/20 21:48 Dose: 5 mg Documented by: Pantoprazole Sodium (Pantoprazole Sodium 20 Mg Tablet) 20 mg PO DAILY [facility] Last Admin: 12/06/20 09:46 Dose: 20 mg Documented by: Senna/Docusate Sodium (Senna/Docusate Sodium 1 Tablet) 2 tablet PO BID PRN PRN PRN Reason: Constipation Sodium Chloride (0.9% Saline Lock 10 Ml Syringe) 10 - 40 ml IV UD PRN PRN Reason: SALINE FLUSH Last Admin: 12/06/20 06:37 Dose: 20 ml Documented by: Sodium Hypochlorite (Dakin's Geovanna Half Strength (=0.25%)) 1 applic TOPICAL DAILY [facility]; Protocol Last Admin: 12/05/20 06:22 Dose: 1 dose Documented by: Tramadol HCl (Tramadol 50 Mg Tablet) 50 mg PO Q8H PRN PRN PRN Reason: Pain Score 4-10 Last Admin: 12/05/20 21:48 Dose: 50 mg Documented by: Venlafaxine HCl (Venlafaxine Xr 75 Mg Capsule) 75 mg PO DAILY [facility] Last Admin: 12/06/20 09:47 Dose: 75 mg Documented by: Zolpidem Tartrate (Zolpidem Tartrate 5 Mg Tablet) 5 mg PO QHS PRN PRN PRN Reason: INSOMNIA Medical Necessity - Tobacco Use Smoking Status: Current every day smoker Assessment/Plan All Active Problems Acute on chronic anemia (Acute) Infected stage IV decubitus ulcer (Acute) 1. 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 Dr. Mack consulted. Wound RN consult. Blood cultures show no growth. Wound culture growing Proteus. Continue IV Zosyn. As needed pain regimen. PT/OT. ID consulted. PICC placed. CT of pelvis shows a 5 cm decubitus ulcer extending to the posterior cortex of the sacrum with osteomyelitis and destruction of the distal sacrum. Plan for surgical intervention on 12/07/[address] Mack. 2. Type 2 diabetes [id number] with sliding scale insulin. Hemoglobin A1c 9.2%. Patient has her own meter to check glucose levels. Increased to high-dose sliding scale insulin. Glucose per MAR remains elevated. Will change Lantus to 40 units twice daily. 3. History of CVA-on aspirin, statin. Hold Plavix. 4. Carotid stenosis-on aspirin, statin. Hold Plavix. 5. CAD with history of CABG-continue medical management. On aspirin, statin, lisinopril, metoprolol. Plavix held. 6. Chronic anemia-at baseline, trend CBC. 7. Chronic COPD-no acute exacerbation. As needed albuterol aerosol. 8. Hypertension-stable, continue lisinopril, metoprolol, HCTZ. 9. Hyperlipidemia-continue statin. 10. PVD-on aspirin, statin. DVT prophylaxis-Lovenox subcu Discharge planning: Patient has a history of noncompliance regarding wound care. Recommend SNF at discharge if patient is amendable. This patient was seen by SARAH Cadena under the supervision of Dr. Sanchez. <Roxana Sanchez E - Last Filed: 12/06/20 11:33> - Physical Exam Vitals/I&O's: Vital Signs Temp Pulse Resp BP Pulse Ox 98.6 F 67 16 147/55 H 100 12/06/20 08:20 12/06/20 09:46 12/06/20 08:20 12/06/20 08:20 12/06/20 08:20 Oxygen Flow Rate (L/min) 2 Oxygen Delivery Method Room Air Weight: 254 lb 6.403 oz Body Mass Index (BMI) 42.3 Finger Stick Blood Glucose 111 Intake and Output for Last 24 Hours 12/04/20 12/05/20 12/06/20 23:59 23:59 23:59 Intake Total 770 / 770 1700 / 1700 470 / 470 Output Total 2600 / 2600 2900 / 2900 500 / 500 Balance -1830 / -1830 -1200 / -1200 -30 / -30 Microbiology Past 72 Hours 12/01/20 16:00 Blood Culture (Wb) - Anticubital Left Blood Culture - Preliminary No growth in 48 hours. 12/01/20 15:42 Blood Culture (Wb) - Left Forearm Blood Culture - Preliminary No growth in 48 hours. 12/01/20 22:50 Wound Abcess - Other Gram Stain - Final 12/01/20 22:50 Wound Abcess - Other Wound Culture - Final Proteus mirabilis Laboratory Results 12/06/20 04:30: WBC 7.4, RBC 3.43 L, Hgb 8.1 L, Hct 27.2 L, MCV 79.3 L, MCH 23.6 L, MCHC 29.8 L, RDW Std Deviation 46.8 H, RDW Coeff of Ash 16.2 H, Plt Count 290, MPV 9.4 12/06/20 04:30: Sodium 135 L, Potassium 4.1, Chloride 102, Carbon Dioxide 28.0, Anion Gap 5, BUN 32 H, Creatinine 0.80, Estim Creat Clear Calc 62.24, Est GFR (MDRD) Af Amer 93, Est GFR (MDRD) Non-Af 77, BUN/Creatinine Ratio 40.3 H, Glucose 235 H, Calcium 8.3 L Current Medications Acetaminophen (Acetaminophen 325 Mg Tablet) 650 mg PO Q6H PRN PRN PRN Reason: Pain Score 1-10/Temp > 100.7 F Last Admin: 12/05/20 05:22 Dose: 650 mg Documented by: Albuterol Sulfate (Albuterol 2.5 Mg/3 Ml Vial.Neb.) 2.5 mg INHALATION Q4H PRN PRN PRN Reason: Shortness of breath, wheezing Amlodipine Besylate (Amlodipine 2.5 Mg Tablet) 2.5 mg PO DAILY [facility] Last Admin: 12/06/20 09:46 Dose: 2.5 mg Documented by: Aspirin (Aspirin 81 Mg Tab.Chew) 81 mg PO DAILY@0800 [facility] Last Admin: 12/06/20 07:59 Dose: 81 mg Documented by: Atorvastatin Calcium (Atorvastatin Calcium 20 Mg Tablet) 20 mg PO QHS [facility] Last Admin: 12/05/20 22:07 Dose: 20 mg Documented by: Buspirone HCl (Buspirone 5 Mg Tablet) 5 mg PO BID [facility] Last Admin: 12/06/20 09:48 Dose: 5 mg Documented by: Enoxaparin Sodium (Enoxaparin 40 Mg/0.4 Ml Syringe) 40 mg SC DAILY [facility] Last Admin: 12/06/20 09:45 Dose: 40 mg Documented by: Ferrous Sulfate (Ferrous Sulfate 325 Mg Tablet) 325 mg PO DAILY@0800 [facility] Last Admin: 12/06/20 07:59 Dose: 325 mg Documented by: Furosemide (Furosemide 40 Mg Tablet) 40 mg PO DAILY [facility] Last Admin: 12/06/20 09:46 Dose: 40 mg Documented by: Gabapentin (Gabapentin 600 Mg Tablet) 600 mg PO BID [facility] Last Admin: 12/06/20 09:47 Dose: 600 mg Documented by: Hydromorphone HCl (Hydromorphone 1 Mg/Ml Syringe) 1 mg IV Q4H PRN PRN PRN Reason: Pain Score 6-10 Last Admin: 12/06/20 10:41 Dose: 1 mg Documented by: Piperacillin Sod/Tazobactam (Sod 3.375 gm/ Sodium Chloride) 50 mls @ 100 mls/hr IV Q8 [facility] Last Infusion: 12/06/20 07:10 Dose: Infused Documented by: Sodium Chloride () 250 mls @ 15 mls/hr IV .[id number] PRN PRN Reason: Saline Flush Last Infusion: 12/05/20 09:03 Dose: Infused Documented by: Insulin Glargine (Insulin Glargine 100 Units/Ml Pen) 40 units SC BID [facility] Last Admin: 12/06/20 11:04 Dose: 40 u Documented by: Insulin Human Lispro (Insulin Lispro 100 Unit/Ml Insuln.Pen) 0 unit SC ACHS [facility]; Protocol Last Admin: 12/06/20 11:05 Dose: 9 unit Documented by: Memantine (Memantine Hydrochloride 5 Mg Tablet) 5 mg PO DAILY [facility] Last Admin: 12/06/20 09:45 Dose: 5 mg Documented by: Metoprolol Tartrate (Metoprolol Tartrate 25 Mg Tablet) 25 mg PO BID [facility] Last Admin: 12/06/20 09:46 Dose: 25 mg Documented by: Nystatin (Nystatin Powder 15gm Bottle) 1 applic TOPICAL BID [facility]; Protocol Last Admin: 12/06/20 09:45 Dose: 1 applicatio Documented by: Ondansetron HCl (Ondansetron 4 Mg/2 Ml Vial) 4 mg IV Q8H PRN PRN PRN Reason: NAUSEA/VOMITING Last Admin: 12/05/20 22:12 Dose: 4 mg Documented by: Oxycodone HCl (Oxycodone 5 Mg Tablet) 5 mg PO Q4H PRN PRN PRN Reason: Pain Score 4-5 Last Admin: 12/05/20 21:48 Dose: 5 mg Documented by: Pantoprazole Sodium (Pantoprazole Sodium 20 Mg Tablet) 20 mg PO DAILY [facility] Last Admin: 12/06/20 09:46 Dose: 20 mg Documented by: Senna/Docusate Sodium (Senna/Docusate Sodium 1 Tablet) 2 tablet PO BID PRN PRN PRN Reason: Constipation Sodium Chloride (0.9% Saline Lock 10 Ml Syringe) 10 - 40 ml IV UD PRN PRN Reason: SALINE FLUSH Last Admin: 12/06/20 10:41 Dose: 10 ml Documented by: Sodium Hypochlorite (Dakin's Geovanna Half Strength (=0.25%)) 1 applic TOPICAL DAILY [facility]; Protocol Last Admin: 12/06/20 10:41 Dose: 1 dose Documented by: Tramadol HCl (Tramadol 50 Mg Tablet) 50 mg PO Q8H PRN PRN PRN Reason: Pain Score 4-10 Last Admin: 12/05/20 21:48 Dose: 50 mg Documented by: Venlafaxine HCl (Venlafaxine Xr 75 Mg Capsule) 75 mg PO DAILY [facility] Last Admin: 12/06/20 09:47 Dose: 75 mg Documented by: Zolpidem Tartrate (Zolpidem Tartrate 5 Mg Tablet) 5 mg PO QHS PRN PRN PRN Reason: INSOMNIA Assessment/Plan Hospitalist note: I am seeing this patient in conjunction with Marisa Coello. I independently seen and examined the patient. Progress note above, laboratory data and imaging studies reviewed and I concur with the above treatment plan. Patient having questions about the duration of surgery and what time we will go for tomorrow. Back pain is controlled with current pain medication regimen. Her vital signs are stable. Physical examination: General: Alert, Oriented x3, No apparent distress, Well developed HEENT: Atraumatic, PERRLA, EOMI, Normocephalic Oral: Moist Mucosa, No Gingival or Mucosal Lesions/ Ulcerations Neck: Supple, No JVD, Negative Carotid Bruits, Trachea Midline, Thyroid Normal Size and Texture Lungs: Clear to auscultation, No rhonchi, No wheeze, No rales, Diminished Cardiovascular: Regular rate, Regular Rhythm, Normal S1, Normal S2, PMI Normal Abdomen: Bowel Sounds Present, Soft, Non Tender, Non-Distended, No Hepato- splenomegaly, Obese Extremities: No clubbing, No cyanosis, Edema Skin: No rashes, Ulcer/ Wound, - -stage IV sacral decubitus ulcer, dressed. Lymphatic: No Cervical, Supraclavicular, or Inguinal Adenopathy Neurological: Cranial nerves II-XII grossly intact, Motor Exam 5/5 strength throughout Psych/Mental Status: Flat affect. Assessment and plan: #1 infected recurrent stage IV sacral decubitus ulcer/sacral osteomyelitis: She is on IV Zosyn. Patient has been afebrile, no leukocytosis, other vital signs are stable. Wound culture revealed Proteus mirabilis. Blood culture showed no growth in 48 hours. Initially, patient refused to go for surgery but now, she is agreeable to surgery which will be tomorrow. Plan to continue same treatment. #2 acute on chronic anemia: Patient received 1 unit of packed RBCs. Admission hemoglobin was 7.6 g/dL, it is 8.1 today. No active bleeding. Plan to continue iron supplement, watch H&H. #3 other chronic medical problems: Stable, continue current medications as above. This note was generated with [employer] dictation software. It may contain incorrect words, spelling, and punctuation that were not noted in checking the note before signing. Inpatient E&M: 35159 Subs Hosp L2
[2020-12-06] MEDS: DAKIN'S SOL HALF STRENGTH (=0.25%) 1 APPLIC TOPICAL (10:41)
--- NOTE | 2020-12-06 11:24 | NURSING ---
wound photo: sacrum/buttocks
--- NOTE | 2020-12-06 11:47 | CASEMGMT ---
Social Work Note Pt is having surgery tomorrow. SW following for possible SNF placement. Kassie Larios NEWSPAPER PHOTO EDITOR, [employer]
[2020-12-06] MEDS: traMADol 50 MG Tablet PO (14:16)
--- NOTE | 2020-12-06 14:57 | CASEMGMT ---
Social Work Note SW updated that pt is not going to surgery now with Dr. Mack, will need to get it rescheduled. Plan is for pt to discharge and then reschedule surgery. SW in to speak with pt. SW asked pt if she will go to SNF or home and reschedule surgery. Pt states she can't go to a penitentiary as she will lose her apartment. Pt states she has done IV antibiotics in the past at home and will be returning home at discharge. Pt states her son is available to assist. SW did place a call to Magali at [employer] to gather additional information about pt leaving SNF. Magali states pt was going to have to start paying patient liability at SNF and pt refused to pay patient liability so pt discharged home. Magali states pt wouldn't pay for patient liability as that is money that her son wouldn't get. Magali states pt's son doesn't work. Pt paying the patient liability would cut into pt's monthly income. Magali states regardless if pt goes to a SNF (it doesn't matter the SNF) pt will have to begin paying patient liability which pt has refused to pay. APS has been involved with pt and will be notified when pt discharges from [facility]. SW to continue to follow. Kassie Larios MACHINIST LINOTYPE, PIPE STEM REPAIRER
--- NOTE | 2020-12-06 15:33 | PCM.PN.ID ---
Patient Problems: Active and Suspected Problems Acute on chronic anemia (Acute) Infected stage IV decubitus ulcer (Acute) Subjective: No fever, feeling ok - Physical Exam Vitals/I&O's: Vital Signs Temp Pulse Resp BP Pulse Ox 98.6 F 67 16 147/55 H 100 12/06/20 08:20 12/06/20 09:46 12/06/20 08:20 12/06/20 08:20 12/06/20 08:20 Oxygen Flow Rate (L/min) 2 Oxygen Delivery Method Room Air Weight: 115.394 kg Body Mass Index (BMI) 42.3 Finger Stick Blood Glucose 111 Intake and Output for Last 24 Hours 12/04/20 12/05/20 12/06/20 23:59 23:59 23:59 Intake Total 770 / 770 1700 / 1700 820 / 820 Output Total 2600 / 2600 2900 / 2900 1675 / 1675 Balance -1830 / -1830 -1200 / -1200 -855 / -855 General: Alert, Cooperative, No apparent distress Lungs: Clear to auscultation, Normal air movement Cardiovascular: Regular rate, Regular Rhythm Abdomen: Soft, Non Tender, Non-Distended Skin: No rashes Microbiology Past 72 Hours 12/01/20 16:00 Blood Culture (Wb) - Anticubital Left Blood Culture - Preliminary No growth in 48 hours. 12/01/20 15:42 Blood Culture (Wb) - Left Forearm Blood Culture - Preliminary No growth in 48 hours. 12/01/20 22:50 Wound Abcess - Other Gram Stain - Final 12/01/20 22:50 Wound Abcess - Other Wound Culture - Final Proteus mirabilis Laboratory Results 12/06/20 04:30: WBC 7.4, RBC 3.43 L, Hgb 8.1 L, Hct 27.2 L, MCV 79.3 L, MCH 23.6 L, MCHC 29.8 L, RDW Std Deviation 46.8 H, RDW Coeff of Ash 16.2 H, Plt Count 290, MPV 9.4 12/06/20 04:30: Sodium 135 L, Potassium 4.1, Chloride 102, Carbon Dioxide 28.0, Anion Gap 5, BUN 32 H, Creatinine 0.80, Estim Creat Clear Calc 62.24, Est GFR (MDRD) Af Amer 93, Est GFR (MDRD) Non-Af 77, BUN/Creatinine Ratio 40.3 H, Glucose 235 H, Calcium 8.3 L Current Medications Acetaminophen (Acetaminophen 325 Mg Tablet) 650 mg PO Q6H PRN PRN PRN Reason: Pain Score 1-10/Temp > 100.7 F Last Admin: 12/05/20 05:22 Dose: 650 mg Documented by: Albuterol Sulfate (Albuterol 2.5 Mg/3 Ml Vial.Neb.) 2.5 mg INHALATION Q4H PRN PRN PRN Reason: Shortness of breath, wheezing Amlodipine Besylate (Amlodipine 2.5 Mg Tablet) 2.5 mg PO DAILY [facility] Last Admin: 12/06/20 09:46 Dose: 2.5 mg Documented by: Aspirin (Aspirin 81 Mg Tab.Chew) 81 mg PO DAILY@0800 [facility] Last Admin: 12/06/20 07:59 Dose: 81 mg Documented by: Atorvastatin Calcium (Atorvastatin Calcium 20 Mg Tablet) 20 mg PO QHS [facility] Last Admin: 12/05/20 22:07 Dose: 20 mg Documented by: Buspirone HCl (Buspirone 5 Mg Tablet) 5 mg PO BID [facility] Last Admin: 12/06/20 09:48 Dose: 5 mg Documented by: Enoxaparin Sodium (Enoxaparin 40 Mg/0.4 Ml Syringe) 40 mg SC DAILY [facility] Last Admin: 12/06/20 09:45 Dose: 40 mg Documented by: Ferrous Sulfate (Ferrous Sulfate 325 Mg Tablet) 325 mg PO DAILY@0800 [facility] Last Admin: 12/06/20 07:59 Dose: 325 mg Documented by: Furosemide (Furosemide 40 Mg Tablet) 40 mg PO DAILY [facility] Last Admin: 12/06/20 09:46 Dose: 40 mg Documented by: Gabapentin (Gabapentin 600 Mg Tablet) 600 mg PO BID [facility] Last Admin: 12/06/20 09:47 Dose: 600 mg Documented by: Hydromorphone HCl (Hydromorphone 1 Mg/Ml Syringe) 1 mg IV Q4H PRN PRN PRN Reason: Pain Score 6-10 Last Admin: 12/06/20 10:41 Dose: 1 mg Documented by: Piperacillin Sod/Tazobactam (Sod 3.375 gm/ Sodium Chloride) 50 mls @ 100 mls/hr IV Q8 [facility] Last Admin: 12/06/20 14:14 Dose: 100 mls/hr Documented by: Sodium Chloride () 250 mls @ 15 mls/hr IV .[id number] PRN PRN Reason: Saline Flush Last Infusion: 12/05/20 09:03 Dose: Infused Documented by: Insulin Glargine (Insulin Glargine 100 Units/Ml Pen) 40 units SC BID [facility] Last Admin: 12/06/20 11:04 Dose: 40 u Documented by: Insulin Human Lispro (Insulin Lispro 100 Unit/Ml Insuln.Pen) 0 unit SC ACHS [facility]; Protocol Last Admin: 12/06/20 11:05 Dose: 9 unit Documented by: Memantine (Memantine Hydrochloride 5 Mg Tablet) 5 mg PO DAILY [facility] Last Admin: 12/06/20 09:45 Dose: 5 mg Documented by: Metoprolol Tartrate (Metoprolol Tartrate 25 Mg Tablet) 25 mg PO BID [facility] Last Admin: 12/06/20 09:46 Dose: 25 mg Documented by: Nystatin (Nystatin Powder 15gm Bottle) 1 applic TOPICAL BID [facility]; Protocol Last Admin: 12/06/20 09:45 Dose: 1 applicatio Documented by: Ondansetron HCl (Ondansetron 4 Mg/2 Ml Vial) 4 mg IV Q8H PRN PRN PRN Reason: NAUSEA/VOMITING Last Admin: 12/05/20 22:12 Dose: 4 mg Documented by: Oxycodone HCl (Oxycodone 5 Mg Tablet) 5 mg PO Q4H PRN PRN PRN Reason: Pain Score 4-5 Last Admin: 12/05/20 21:48 Dose: 5 mg Documented by: Pantoprazole Sodium (Pantoprazole Sodium 20 Mg Tablet) 20 mg PO DAILY [facility] Last Admin: 12/06/20 09:46 Dose: 20 mg Documented by: Senna/Docusate Sodium (Senna/Docusate Sodium 1 Tablet) 2 tablet PO BID PRN PRN PRN Reason: Constipation Sodium Chloride (0.9% Saline Lock 10 Ml Syringe) 10 - 40 ml IV UD PRN PRN Reason: SALINE FLUSH Last Admin: 12/06/20 10:41 Dose: 10 ml Documented by: Sodium Hypochlorite (Dakin's Geovanna Half Strength (=0.25%)) 1 applic TOPICAL DAILY [facility]; Protocol Last Admin: 12/06/20 10:41 Dose: 1 dose Documented by: Tramadol HCl (Tramadol 50 Mg Tablet) 50 mg PO Q8H PRN PRN PRN Reason: Pain Score 4-10 Last Admin: 12/06/20 14:16 Dose: 50 mg Documented by: Venlafaxine HCl (Venlafaxine Xr 75 Mg Capsule) 75 mg PO DAILY [facility] Last Admin: 12/06/20 09:47 Dose: 75 mg Documented by: Zolpidem Tartrate (Zolpidem Tartrate 5 Mg Tablet) 5 mg PO QHS PRN PRN PRN Reason: INSOMNIA Medical Necessity - Tobacco Use Smoking Status: Current every day smoker Route of nutrition/ use of supplements: [] Nutritional Intake: [] IV Site: [] Guy Catheter: [] - Assessment/Plan Antibiotics: [] Assessment/Plan: [] Active and Suspected Problems Acute on chronic anemia (Acute) Infected stage IV decubitus ulcer (Acute) suspected 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 Cont zosyn. OR tomorrow. Will follow
--- NOTE | 2020-12-06 15:34 | CASEMGMT ---
ESTEFANIA BURKS updated that patient's surgery is cancelled and patient would like to go home with resumption of HHC and IV ATBs. ESTEFANIA BURKS in to discuss IV ATBs and infusion companies. Patient states her son has done IV ATBs previous for patient. ESTEFANIA BURKS provided list of infusion companies and patient would like [facility]. Patient would like to know cost of IV ATBs before making any decisions. ESTEFANIA BURKS sent referral to [facility] to run financials. CM will continue to follow this patient and plan for a safe discharge.
--- NOTE | 2020-12-06 15:57 | CASEMGMT ---
Social Work Note SW reviewed chart, Pt has CM Leia Sepulveda. SW placed a call to Leia Sepulveda at [facility] and left message updating her on pt's admission to [facility]. Kassie Larios FISHER OYSTER, WAFER FAB OPERATOR
--- NOTE | 2020-12-06 17:02 | PCM.PN.BLA ---
Progress Note I was planning on taking the patient to surgery tomorrow for excision infected sacral pressure sore with partial ostectomy for osteomyelitis. However, I have developed some respiratory issues with hypoxia and am being evaluated for this because of the present COVID pandemic. The sacral pressure sore appears stable at this time, and therefore I will postpone the surgery for tomorrow. Can proceed with ECF placement at this time. Continue Dakin's dressing changes. Continue IV antibiotics with Zosyn. When I am feeling better, I can re-evaluate [facility] and reschedule the surgery when appropriate. STROKE Vital Signs/Narrative: Vital Signs Temp Pulse Resp BP Pulse Ox 12/06/20 16:55 98.6 F 72 16 145/35 H 98 12/06/20 16:00 18
[2020-12-06] MEDS: oxyCODONE 5 MG Tablet PO (17:03)
[2020-12-06] MEDS: Atorvastatin Calcium 20 MG Tablet PO (21:03)
[2020-12-07] MEDS: Zolpidem Tartrate 5 MG Tablet PO (00:01)
[2020-12-07] MEDS: traMADol 50 MG Tablet PO ×2 (00:01→14:17)
[2020-12-07] MEDS: Acetaminophen 325 MG Tablet 650 MG PO ×2 (00:01→14:18)
[2020-12-07 03:01] VITALS: BP 124/35; PULSE 55; RESP 18; TEMP 37.2; O2SAT 98
[2020-12-07 06:17] LABS: Hematocrit 26.2 % (37-47); Hemoglobin 7.8 g/dL (12.0-15.0); Mean Corp Hgb Conc 29.8 g/dL (32-36); Mean Corpuscular Hgb 23.6 pg (27.0-32.0); Mean Corpuscular Volume 79.4 fL (81-99); Mean Platelet Vol. 9.6 fl (6.2-12.0); Platelet Count 264 K/mm3 (150-450); RBC Distribution Width CV 16.4 % (11.6-14.6); RBC Distribution Width SD 47.2 fl (35.1-43.9); White Blood Count 6.6 K/mm3 (4.4-11.0)
[2020-12-07] MEDS: 0.9% Saline Lock 10 ML Syringe IV ×3 (06:24→18:07)
[2020-12-07 06:47] LABS: Anion Gap 5 (5-15); BUN 46 mg/dL (7-18); BUN/Creat Ratio 46.7 RATIO (10-20); Calcium,Total 8.1 mg/dL (8.5-10.1); Chloride 103 mmol/L (98-107); Creatinine, Serum 0.98 mg/dL (0.55-1.02); EST Glomerular Filtration Rate 60 mL/min (>60); Est Glom Filt Rate - Afr Amer 73 mL/min (>60); Estimated Creatinine Clearance 50.81 ml/min; Glucose 209 mg/dL (74-106); Potassium 4.4 mmol/L (3.5-5.1); Sodium Level 136 mmol/L (136-145)
[2020-12-07 09:00] VITALS: BP 117/41; PULSE 80; RESP 18; TEMP 36.6; O2SAT 98
--- NOTE | 2020-12-07 09:48 | PCM.PN.ID ---
Patient Problems: Active and Suspected Problems Acute on chronic anemia (Acute) Infected stage IV decubitus ulcer (Acute) Subjective: Feeling fine, frustrated she won't get surgery. No fever. - Physical Exam Vitals/I&O's: Vital Signs Temp Pulse Resp BP Pulse Ox 98.9 F 55 L 18 124/35 H 98 12/07/20 03:01 12/07/20 03:01 12/07/20 03:01 12/07/20 03:01 12/07/20 03:01 Oxygen Flow Rate (L/min) 2 Oxygen Delivery Method Room Air Weight: 115.394 kg Body Mass Index (BMI) 42.3 Finger Stick Blood Glucose 111 Intake and Output for Last 24 Hours 12/05/20 12/06/20 12/07/20 23:59 23:59 23:59 Intake Total 1700 / 1700 1420 / 1720 570 / 570 Output Total 2900 / 2900 2615 / 3765 1625 / 1625 Balance -1200 / -1200 -1195 / -2045 -1055 / -1055 General: Alert, Cooperative, No apparent distress Lungs: Clear to auscultation, Normal air movement Cardiovascular: Regular rate, Regular Rhythm Abdomen: Soft, Non Tender, Non-Distended Skin: No rashes Microbiology Past 72 Hours 12/01/20 16:00 Blood Culture (Wb) - Anticubital Left Blood Culture - Final No growth in 5 days. 12/01/20 15:42 Blood Culture (Wb) - Left Forearm Blood Culture - Final No growth in 5 days. 12/01/20 22:50 Wound Abcess - Other Gram Stain - Final 12/01/20 22:50 Wound Abcess - Other Wound Culture - Final Proteus mirabilis Laboratory Results 12/07/20 06:10: WBC 6.6, RBC 3.30 L, Hgb 7.8 L, Hct 26.2 L, MCV 79.4 L, MCH 23.6 L, MCHC 29.8 L, RDW Std Deviation 47.2 H, RDW Coeff of Ash 16.4 H, Plt Count 264, MPV 9.6 12/07/20 06:10: Sodium 136, Potassium 4.4, Chloride 103, Carbon Dioxide 28.0, Anion Gap 5, BUN 46 H, Creatinine 0.98, Estim Creat Clear Calc 50.81, Est GFR (MDRD) Af Amer 73, Est GFR (MDRD) Non-Af 60, BUN/Creatinine Ratio 46.7 H, Glucose 209 H, Calcium 8.1 L Current Medications Acetaminophen (Acetaminophen 325 Mg Tablet) 650 mg PO Q6H PRN PRN PRN Reason: Pain Score 1-10/Temp > 100.7 F Last Admin: 12/07/20 00:01 Dose: 650 mg Documented by: Albuterol Sulfate (Albuterol 2.5 Mg/3 Ml Vial.Neb.) 2.5 mg INHALATION Q4H PRN PRN PRN Reason: Shortness of breath, wheezing Amlodipine Besylate (Amlodipine 2.5 Mg Tablet) 2.5 mg PO DAILY [facility] Last Admin: 12/06/20 09:46 Dose: 2.5 mg Documented by: Aspirin (Aspirin 81 Mg Tab.Chew) 81 mg PO DAILY@0800 [facility] Last Admin: 12/06/20 07:59 Dose: 81 mg Documented by: Atorvastatin Calcium (Atorvastatin Calcium 20 Mg Tablet) 20 mg PO QHS [facility] Last Admin: 12/06/20 21:03 Dose: 20 mg Documented by: Buspirone HCl (Buspirone 5 Mg Tablet) 5 mg PO BID [facility] Last Admin: 12/06/20 21:02 Dose: 5 mg Documented by: Enoxaparin Sodium (Enoxaparin 40 Mg/0.4 Ml Syringe) 40 mg SC DAILY [facility] Last Admin: 12/06/20 09:45 Dose: 40 mg Documented by: Ferrous Sulfate (Ferrous Sulfate 325 Mg Tablet) 325 mg PO DAILY@0800 [facility] Last Admin: 12/06/20 07:59 Dose: 325 mg Documented by: Furosemide (Furosemide 40 Mg Tablet) 40 mg PO DAILY [facility] Last Admin: 12/06/20 09:46 Dose: 40 mg Documented by: Gabapentin (Gabapentin 600 Mg Tablet) 600 mg PO BID [facility] Last Admin: 12/06/20 21:04 Dose: 600 mg Documented by: Hydromorphone HCl (Hydromorphone 1 Mg/Ml Syringe) 1 mg IV Q4H PRN PRN PRN Reason: Pain Score 6-10 Last Admin: 12/06/20 20:59 Dose: 1 mg Documented by: Piperacillin Sod/Tazobactam (Sod 3.375 gm/ Sodium Chloride) 50 mls @ 100 mls/hr IV Q8 [facility] Last Infusion: 12/07/20 06:54 Dose: Infused Documented by: Sodium Chloride () 250 mls @ 15 mls/hr IV .[id number] PRN PRN Reason: Saline Flush Last Admin: 12/07/20 03:01 Dose: 15 mls/hr Documented by: Insulin Glargine (Insulin Glargine 100 Units/Ml Pen) 40 units SC BID [facility] Last Admin: 12/06/20 22:33 Dose: 40 u Documented by: Insulin Human Lispro (Insulin Lispro 100 Unit/Ml Insuln.Pen) 0 unit SC ACHS [facility]; Protocol Last Admin: 12/07/20 06:27 Dose: Not Given Documented by: Memantine (Memantine Hydrochloride 5 Mg Tablet) 5 mg PO DAILY [facility] Last Admin: 12/06/20 09:45 Dose: 5 mg Documented by: Metoprolol Tartrate (Metoprolol Tartrate 25 Mg Tablet) 25 mg PO BID [facility] Last Admin: 12/06/20 21:03 Dose: 25 mg Documented by: Nystatin (Nystatin Powder 15gm Bottle) 1 applic TOPICAL BID [facility]; Protocol Last Admin: 12/06/20 21:03 Dose: 1 applicatio Documented by: Ondansetron HCl (Ondansetron 4 Mg/2 Ml Vial) 4 mg IV Q8H PRN PRN PRN Reason: NAUSEA/VOMITING Last Admin: 12/05/20 22:12 Dose: 4 mg Documented by: Oxycodone HCl (Oxycodone 5 Mg Tablet) 5 mg PO Q4H PRN PRN PRN Reason: Pain Score 4-5 Last Admin: 12/06/20 17:03 Dose: 5 mg Documented by: Pantoprazole Sodium (Pantoprazole Sodium 20 Mg Tablet) 20 mg PO DAILY [facility] Last Admin: 12/06/20 09:46 Dose: 20 mg Documented by: Senna/Docusate Sodium (Senna/Docusate Sodium 1 Tablet) 2 tablet PO BID PRN PRN PRN Reason: Constipation Sodium Chloride (0.9% Saline Lock 10 Ml Syringe) 10 - 40 ml IV UD PRN PRN Reason: SALINE FLUSH Last Admin: 12/07/20 06:24 Dose: 10 ml Documented by: Sodium Hypochlorite (Dakin's Geovanna Half Strength (=0.25%)) 1 applic TOPICAL DAILY [facility]; Protocol Last Admin: 12/06/20 10:41 Dose: 1 dose Documented by: Tramadol HCl (Tramadol 50 Mg Tablet) 50 mg PO Q8H PRN PRN PRN Reason: Pain Score 4-10 Last Admin: 12/07/20 00:01 Dose: 50 mg Documented by: Venlafaxine HCl (Venlafaxine Xr 75 Mg Capsule) 75 mg PO DAILY [facility] Last Admin: 12/06/20 09:47 Dose: 75 mg Documented by: Zolpidem Tartrate (Zolpidem Tartrate 5 Mg Tablet) 5 mg PO QHS PRN PRN PRN Reason: INSOMNIA Last Admin: 12/07/20 00:01 Dose: 5 mg Documented by: Medical Necessity - Tobacco Use Smoking Status: Current every day smoker Route of nutrition/ use of supplements: [] Nutritional Intake: [] IV Site: [] Guy Catheter: [] - Assessment/Plan Antibiotics: [] Assessment/Plan: [] Active and Suspected Problems Acute on chronic anemia (Acute) Infected stage IV decubitus ulcer (Acute) 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 On zosyn. OR postponed. Ok for d/c home on iv ertapenem, stop date 01/12/21, weekly bmp, cbc, LFT, and esr. Picc in place. Will follow, ID followup in 2 weeks, d/w primary team and child welfare caseworker.
--- NOTE | 2020-12-07 10:14 | CASEMGMT ---
ESTEFANIA BURKS received script for ID for IV ATB. RN VITALIY called and updated [facility]. Received call back from Leatha at [facility] that patient is covered at 100%. Script faxed to [facility]. ESTEFANIA BURKS called and left message for [facility] whom patient is active with that patient will be discharging with IV ATBs. CM updated patient regarding IV ATB and comfirming setup. Patient voiced understanding.
[2020-12-07] MEDS: HYDROmorphone 1 MG/ML Syringe IV ×2 (10:35→17:56)
[2020-12-07] MEDS: Ferrous Sulfate 325 MG Tablet PO (10:41)
[2020-12-07] MEDS: Aspirin 81 MG TAB.CHEW PO (10:41)
[2020-12-07] MEDS: Pantoprazole Sodium 20 MG Tablet PO (10:41)
[2020-12-07] MEDS: Memantine Hydrochloride 5 MG Tablet PO (10:42)
[2020-12-07] MEDS: amLODIPine 2.5 MG Tablet PO (10:42)
[2020-12-07] MEDS: busPIRone 5 MG Tablet PO (10:42)
[2020-12-07] MEDS: Venlafaxine XR 75 MG Capsule PO (10:42)
[2020-12-07] MEDS: Enoxaparin 40 MG/0.4 ML Syringe SC (10:44)
[2020-12-07] MEDS: Nystatin Powder 15gm Bottle 1 APPLIC TOPICAL (10:45)
[2020-12-07] MEDS: Furosemide 40 MG Tablet PO (10:45)
[2020-12-07] MEDS: Gabapentin 600 MG Tablet PO (10:46)
--- NOTE | 2020-12-07 10:53 | CASEMGMT ---
Social Work Note SW received message from Leia Sepulveda at [facility] stating pt was disenrolled from [facility]'s services in August as pt was at a senior care in [facility]. Leia states she had informed pt that if pt were to return home and wanted services again then pt needed to reach out to Leia. Kassie Larios AUTOMOBILE SALES REPRESENTATIVE, HOSPICE MASSAGE THERAPIST
[2020-12-07] MEDS: DAKIN'S SOL HALF STRENGTH (=0.25%) 1 APPLIC TOPICAL (10:57)
--- NOTE | 2020-12-07 11:21 | NURSING ---
Removed the colostomy appliance. there was a moderate amount of unformed soft brown stool. peristomal skin is intact. stoma is well budded and pink. cleansed peristomal skin with warm water. pat dry. applied a new flat 2 piece [place] appliance. Pt tolerated well. will send a couple appliances home with patient since pt states she had almost been out prior to coming to the hospital. states she was still waiting on her order to arrive. pt appreciative.
--- NOTE | 2020-12-07 11:38 | PCM.DC ---
- Discharge Diagnoses Current Active Problems: Current Active and Chronic Problems Acute on chronic anemia (Acute) Infected stage IV decubitus ulcer (Acute) Decubitus ulcer of coccygeal region, stage 3 (Chronic) COPD (chronic obstructive pulmonary disease) (Chronic) Diabetic neuropathy (Chronic) Peripheral vascular disease in diabetes mellitus (Chronic) Diabetes mellitus type II (Chronic) Coronary artery disease (Chronic) Status post CABG Discharge Activity: Return to Normal Activity Additional Instructions: cleanse wounds to sacrum and bilateral buttocks. pack sacral wound with Dakins moistened gauze (be sure to pack the tunneling area to the toward the left buttock. tunnels 5.2cm). place Aquacel to the open areas bilateral buttocks. cover with dry dressing. change daily and prn. Allergies/Adverse Reactions: Allergies povidone-iodine [From Betadine] Allergy (Verified 03/07/20 15:27) Itching topical betadine prednisone Allergy (Verified 03/07/20 15:27) tiny mouth ulcers Medications to take at Discharge Atorvastatin Calcium [Lipitor] 20 mg PO QHS 03/24/15 Metoprolol Tartrate [Lopressor (beta liza)] 25 mg PO BID 03/24/15 Omeprazole [Prilosec] 20 mg PO DAILY 03/24/15 Albuterol Aerosols [Ventolin Aerosols] 2.5 mg INHALATION Q6HWA.RT PRN 09/10/16 traMADol [Ultram] 50 mg PO Q8H PRN PRN 12/25/17 Ferrous Sulfate 325 mg PO DAILY@0800 02/18/20 Amlodipine [Norvasc] 2.5 mg PO DAILY 12/02/20 Aspirin [Aspirin, Baby] 81 mg PO DAILY@0800 12/02/20 Clopidogrel Bisulfate [Plavix] 75 mg PO DAILY 12/02/20 Furosemide [Lasix] 40 mg PO DAILY 12/02/20 Gabapentin 600 mg PO BID 12/02/20 Insulin Lispro [Humalog KwikPen] See Protocol SC ACHS 12/02/20 Memantine HCl 5 mg PO DAILY 12/02/20 Nystatin Powder [Mycostatin Powder] 1 applic TOPICAL TID 12/02/20 Venlafaxine HCl [Effexor Xr] 75 mg PO DAILY 12/02/20 busPIRone [Buspar] 5 mg PO BID 12/02/20 Ertapenem Sodium [Ertapenem] 1 gm IV Q24H 35 Days #35 vial 12/07/20 Insulin Glargine [Lantus SoloStar Pen] 40 units SC BID pen 12/07/20 Oxycodone [Oxyir] 5 mg PO Q4H PRN PRN 2 Days #10 tablet 12/07/20 Sodium Hypochlorite [Dakins Solution 0.25% (1/2 Strength)] 1 applic TOPICAL DAILY bottle 12/07/20 The following prescriptions were given: Ertapenem Sodium [Ertapenem] 1 gm IV Q24H 35 Days #35 vial Prescription Printed Oxycodone [Oxyir] 5 mg PO Q4H PRN PRN 2 Days #10 tablet PRN Reason: Pain Score 4-5 Transmission Status: Received by [facility]/pharmacy #[id number] Primary Care Physician: Gera Snider III, MD [Primary Care Provider] - Please follow up with your Primary Care Physician in: 1 Week Test Results: Test results from this visit will be discussed in further detail at your follow-up appointment, if applicable. Please Follow Up With: Ever Mack MD When: 1 Week, call for follow up Proposed Discharge Date: 12/07/20
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
--- NOTE | 2020-12-07 12:07 | DS.PCM_ITS ---
<Marisa Coello DELIVERY [employer]ORCY[employer] - Last Filed: 12/07/20 12:13> Discharge Date and Diagnosis - Problem List Patient Problems: Active and Suspected Problems Acute on chronic anemia (Acute) Infected stage IV decubitus ulcer (Acute) Date of Admission: 12/01/20 Date of Discharge: 12/07/20 - Primary Discharge Diagnosis Acute Problems: Active Problems 1. 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 Type 2 diabetes mellitus 3. History of CVA 4. Carotid stenosis 5. CAD with history of CABG 6. Chronic anemia 7. Chronic COPD 8. Hypertension 9. Hyperlipidemia 10. PVD - Secondary Discharge Diagnosis Chronic Problems: Chronic Problems Osteomyelitis of pelvic region (Chronic) Pressure ulcer of sacral region, stage 4 (Chronic) Stage II pressure ulcer of right buttock (Chronic) Stage II pressure ulcer of left buttock (Chronic) Obesity, morbid (Chronic) Decubitus ulcer of coccygeal region, stage 3 (Chronic) Tobacco abuse (Chronic) COPD (chronic obstructive pulmonary disease) (Chronic) Depression (Chronic) Dyslipidemia (Chronic) Pressure ulcer of left heel, stage 2 (Chronic) Stage III pressure ulcer of sacral region (Chronic) Diabetic neuropathy (Chronic) Peripheral vascular disease in diabetes mellitus (Chronic) Diabetes mellitus type II (Chronic) Coronary artery disease (Chronic) Status post CABG Cancer of vulva (Chronic) Status post radical vulvectomy and radiotherapy in January 2014 Hospital Course and Treatment Imaging Results: Diagnostic Data Chest X-Ray 12/01/20 17:45 IMPRESSION: No acute cardiopulmonary disease or major interval change. Electronically Signed: Jhonny Conrad DO at 18:06 EST Tel [phone], Service support , Pelvis CT 12/04/20 10:27 IMPRESSION: 5 cm decubitus ulcer extending to the posterior cortex of the sacrum with the osteomyelitis and destruction of the distal sacrum. No abscess. Electronically Signed: Alex Mayes MD at 13:23 EST Tel , Service support , Consultations 12/01/20 19:04 Consult: Onc/Wound/manager unix Routine Comment: Dr. Mack- Plastic surgery Dr. Gatica- ID Operations: None Procedures: None Summary of Care Provided: The patient is a 65 year old F admitted 12/01/2020 due to infected decubitus ulcer. 1. 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 Dr. Mack consulted during admission. Blood cultures show no growth. Wound culture growing Proteus. IV Zosyn during admission. ID consulted. PICC placed. CT of pelvis shows a 5 cm decubitus ulcer extending to the posterior cortex of the sacrum with osteomyelitis and destruction of the distal sacrum. Surgical intervention postponed at this time. Patient will discharge home with home health on IV ertapenem with stop date 01/12/2021. Weekly BMP, CBC, LFT and ESR. Follow-up with Dr. Mack in 1 week for further discussion regarding surgical intervention. Rx for dressing supplies at discharge. Continue dressing changes as ordered. 2. Type 2 diabetes mellitus-Hemoglobin A1c 9.2%. Patient has her own meter to check glucose levels. Lantus changed to 40 units twice daily. Glucose improved. 3. History of CVA-on aspirin, statin, Plavix. 4. Carotid stenosis-on aspirin, statin, Plavix. 5. CAD with history of CABG-continue medical management. On aspirin, statin, lisinopril, metoprolol, Plavix. 6. Chronic anemia-at baseline, trend CBC. 7. Chronic COPD-no acute exacerbation. As needed albuterol aerosol. 8. Hypertension-stable, continue lisinopril, metoprolol, HCTZ. 9. Hyperlipidemia-continue statin. 10. PVD-on aspirin, statin. General: Alert, Oriented x3, Cooperative HEENT: Atraumatic, PERRLA, EOMI, Normocephalic Neck: Supple, No JVD, Negative Carotid Bruits Lungs: Clear to auscultation, Normal air movement Cardiovascular: Regular rate, No murmurs Abdomen: Bowel Sounds Present, Soft, Non Tender, Non-Distended, Obese, - - Colostomy intact Extremities: No clubbing, No cyanosis, No edema, Capillary Refill Less than 3 Seconds Skin: No rashes, No breakdown, - - Decubitus ulcer, dressing intact Musculoskeletal: No Tenderness to Palpation of Joints or Extremities Neurological: Cranial nerves II-XII grossly intact, Neuro grossly intact Psych/Mental Status: Flat Affect Patient seen and examined prior to discharge. Physical assessment as noted above. Patient is stable for discharge with follow up recommendations as noted above. This patient was seen by SARAH Cadena under the supervision of Dr. Sanchez. Patient Problems: Active and Suspected Problems Acute on chronic anemia (Acute) Infected stage IV decubitus ulcer (Acute) - Physical Exam Vitals/I&O's: Vital Signs Temp Pulse Resp BP Pulse Ox 98.9 F 55 L 18 124/35 H 98 12/07/20 03:01 12/07/20 03:01 12/07/20 03:01 12/07/20 03:01 12/07/20 03:01 Oxygen Flow Rate (L/min) 2 Oxygen Delivery Method Room Air Weight: 254 lb 6.403 oz Body Mass Index (BMI) 42.3 Finger Stick Blood Glucose 111 Intake and Output for Last 24 Hours 12/05/20 12/06/20 12/07/20 23:59 23:59 23:59 Intake Total 1700 / 1700 1420 / 1720 689.5 / 689.5 Output Total 2900 / 2900 2615 / 3765 1625 / 1625 Balance -1200 / -1200 -1195 / -2045 -935.5 / -935.5 Microbiology Past 72 Hours 12/01/20 16:00 Blood Culture (Wb) - Anticubital Left Blood Culture - Final No growth in 5 days. 12/01/20 15:42 Blood Culture (Wb) - Left Forearm Blood Culture - Final No growth in 5 days. 12/01/20 22:50 Wound Abcess - Other Gram Stain - Final 12/01/20 22:50 Wound Abcess - Other Wound Culture - Final Proteus mirabilis Laboratory Results 12/07/20 06:10: WBC 6.6, RBC 3.30 L, Hgb 7.8 L, Hct 26.2 L, MCV 79.4 L, MCH 23.6 L, MCHC 29.8 L, RDW Std Deviation 47.2 H, RDW Coeff of Ash 16.4 H, Plt Count 264, MPV 9.6 12/07/20 06:10: Sodium 136, Potassium 4.4, Chloride 103, Carbon Dioxide 28.0, Anion Gap 5, BUN 46 H, Creatinine 0.98, Estim Creat Clear Calc 50.81, Est GFR (MDRD) Af Amer 73, Est GFR (MDRD) Non-Af 60, BUN/Creatinine Ratio 46.7 H, Glucose 209 H, Calcium 8.1 L Current Medications Acetaminophen (Acetaminophen 325 Mg Tablet) 650 mg PO Q6H PRN PRN PRN Reason: Pain Score 1-10/Temp > 100.7 F Last Admin: 12/07/20 00:01 Dose: 650 mg Documented by: Albuterol Sulfate (Albuterol 2.5 Mg/3 Ml Vial.Neb.) 2.5 mg INHALATION Q4H PRN PRN PRN Reason: Shortness of breath, wheezing Amlodipine Besylate (Amlodipine 2.5 Mg Tablet) 2.5 mg PO DAILY [facility] Last Admin: 12/07/20 10:42 Dose: 2.5 mg Documented by: Aspirin (Aspirin 81 Mg Tab.Chew) 81 mg PO DAILY@0800 [facility] Last Admin: 12/07/20 10:41 Dose: 81 mg Documented by: Atorvastatin Calcium (Atorvastatin Calcium 20 Mg Tablet) 20 mg PO QHS [facility] Last Admin: 12/06/20 21:03 Dose: 20 mg Documented by: Buspirone HCl (Buspirone 5 Mg Tablet) 5 mg PO BID [facility] Last Admin: 12/07/20 10:42 Dose: 5 mg Documented by: Enoxaparin Sodium (Enoxaparin 40 Mg/0.4 Ml Syringe) 40 mg SC DAILY [facility] Last Admin: 12/07/20 10:44 Dose: 40 mg Documented by: Ferrous Sulfate (Ferrous Sulfate 325 Mg Tablet) 325 mg PO DAILY@0800 [facility] Last Admin: 12/07/20 10:41 Dose: 325 mg Documented by: Furosemide (Furosemide 40 Mg Tablet) 40 mg PO DAILY [facility] Last Admin: 12/07/20 10:45 Dose: 40 mg Documented by: Gabapentin (Gabapentin 600 Mg Tablet) 600 mg PO BID [facility] Last Admin: 12/07/20 10:46 Dose: 600 mg Documented by: Hydromorphone HCl (Hydromorphone 1 Mg/Ml Syringe) 1 mg IV Q4H PRN PRN PRN Reason: Pain Score 6-10 Last Admin: 12/07/20 10:35 Dose: 1 mg Documented by: Sodium Chloride () 250 mls @ 15 mls/hr IV .[id number] PRN PRN Reason: Saline Flush Last Infusion: 12/07/20 10:59 Dose: 0 mls/hr Documented by: Insulin Glargine (Insulin Glargine 100 Units/Ml Pen) 40 units SC BID [facility] Last Admin: 12/07/20 10:54 Dose: 40 u Documented by: Insulin Human Lispro (Insulin Lispro 100 Unit/Ml Insuln.Pen) 0 unit SC ACHS [facility]; Protocol Last Admin: 12/07/20 06:27 Dose: Not Given Documented by: Memantine (Memantine Hydrochloride 5 Mg Tablet) 5 mg PO DAILY [facility] Last Admin: 12/07/20 10:42 Dose: 5 mg Documented by: Metoprolol Tartrate (Metoprolol Tartrate 25 Mg Tablet) 25 mg PO BID [facility] Last Admin: 12/06/20 21:03 Dose: 25 mg Documented by: Nystatin (Nystatin Powder 15gm Bottle) 1 applic TOPICAL BID [facility]; Protocol Last Admin: 12/07/20 10:45 Dose: 1 applicatio Documented by: Ondansetron HCl (Ondansetron 4 Mg/2 Ml Vial) 4 mg IV Q8H PRN PRN PRN Reason: NAUSEA/VOMITING Last Admin: 12/05/20 22:12 Dose: 4 mg Documented by: Oxycodone HCl (Oxycodone 5 Mg Tablet) 5 mg PO Q4H PRN PRN PRN Reason: Pain Score 4-5 Last Admin: 12/06/20 17:03 Dose: 5 mg Documented by: Pantoprazole Sodium (Pantoprazole Sodium 20 Mg Tablet) 20 mg PO DAILY [facility] Last Admin: 12/07/20 10:41 Dose: 20 mg Documented by: Senna/Docusate Sodium (Senna/Docusate Sodium 1 Tablet) 2 tablet PO BID PRN PRN PRN Reason: Constipation Sodium Chloride (0.9% Saline Lock 10 Ml Syringe) 10 - 40 ml IV UD PRN PRN Reason: SALINE FLUSH Last Admin: 12/07/20 10:36 Dose: 10 ml Documented by: Sodium Hypochlorite (Dakin's Geovanna Half Strength (=0.25%)) 1 applic TOPICAL DAILY [facility]; Protocol Last Admin: 12/07/20 10:57 Dose: 1 applicatio Documented by: Tramadol HCl (Tramadol 50 Mg Tablet) 50 mg PO Q8H PRN PRN PRN Reason: Pain Score 4-10 Last Admin: 12/07/20 00:01 Dose: 50 mg Documented by: Venlafaxine HCl (Venlafaxine Xr 75 Mg Capsule) 75 mg PO DAILY [facility] Last Admin: 12/07/20 10:42 Dose: 75 mg Documented by: Zolpidem Tartrate (Zolpidem Tartrate 5 Mg Tablet) 5 mg PO QHS PRN PRN PRN Reason: INSOMNIA Last Admin: 12/07/20 00:01 Dose: 5 mg Documented by: Discharge Diet: Carb Control Diet Discharge Activity: Return to Normal Activity Home Medications: Medications to take at Discharge Atorvastatin Calcium [Lipitor] 20 mg PO QHS 03/24/15 Metoprolol Tartrate [Lopressor (beta liza)] 25 mg PO BID 03/24/15 Omeprazole [Prilosec] 20 mg PO DAILY 03/24/15 Albuterol Aerosols [Ventolin Aerosols] 2.5 mg INHALATION Q6HWA.RT PRN 09/10/16 traMADol [Ultram] 50 mg PO Q8H PRN PRN 12/25/17 Ferrous Sulfate 325 mg PO DAILY@0800 02/18/20 Amlodipine [Norvasc] 2.5 mg PO DAILY 12/02/20 Aspirin [Aspirin, Baby] 81 mg PO DAILY@0800 12/02/20 Clopidogrel Bisulfate [Plavix] 75 mg PO DAILY 12/02/20 Furosemide [Lasix] 40 mg PO DAILY 12/02/20 Gabapentin 600 mg PO BID 12/02/20 Insulin Lispro [Humalog KwikPen] See Protocol SC ACHS 12/02/20 Memantine HCl 5 mg PO DAILY 12/02/20 Nystatin Powder [Mycostatin Powder] 1 applic TOPICAL TID 12/02/20 Venlafaxine HCl [Effexor Xr] 75 mg PO DAILY 12/02/20 busPIRone [Buspar] 5 mg PO BID 12/02/20 Ertapenem Sodium [Ertapenem] 1 gm IV Q24H 35 Days #35 vial 12/07/20 Insulin Glargine [Lantus SoloStar Pen] 40 units SC BID pen 12/07/20 Oxycodone [Oxyir] 5 mg PO Q4H PRN PRN 2 Days #10 tab 12/07/20 Sodium Hypochlorite [Dakins Solution 0.25% (1/2 Strength)] 1 applic TOPICAL DAILY bottle 12/07/20 Following Prescriptions Were Given to Patient: Ertapenem Sodium [Ertapenem] 1 gm IV Q24H 35 Days #35 vial Prescription Printed Oxycodone [Oxyir] 5 mg PO Q4H PRN PRN 2 Days #10 tab PRN Reason: Pain Score 4-5 Transmission Status: Received by [facility]/pharmacy #[id number] Primary Care Physician: Gera Snider III, MD [Primary Care Provider] - Please follow up with your Primary Care Physician in: 1 Week Please Follow Up With: Ever Mack MD When: 1 Week, call for follow up Disposition: Home with Home Health Minutes spent on discharge:: 35 Patient Condition:: Stable Medical Necessity - Tobacco Use Smoking Status: Current every day smoker Meaningful Use Info Meaningful Use Diagnoses (Choose all that apply): None applicable <Roxana Sanchez E - Last Filed: 12/07/20 12:26> Discharge Date and Diagnosis - Primary Discharge Diagnosis Acute Problems: Active Problems Acute on chronic anemia (Acute) Infected stage IV decubitus ulcer (Acute) - Secondary Discharge Diagnosis Chronic Problems: Chronic Problems Osteomyelitis of pelvic region (Chronic) Pressure ulcer of sacral region, stage 4 (Chronic) Stage II pressure ulcer of right buttock (Chronic) Stage II pressure ulcer of left buttock (Chronic) Obesity, morbid (Chronic) Decubitus ulcer of coccygeal region, stage 3 (Chronic) Tobacco abuse (Chronic) COPD (chronic obstructive pulmonary disease) (Chronic) Depression (Chronic) Dyslipidemia (Chronic) Pressure ulcer of left heel, stage 2 (Chronic) Stage III pressure ulcer of sacral region (Chronic) Diabetic neuropathy (Chronic) Peripheral vascular disease in diabetes mellitus (Chronic) Diabetes mellitus type II (Chronic) Coronary artery disease (Chronic) Status post CABG Cancer of vulva (Chronic) Status post radical vulvectomy and radiotherapy in January 2014 Hospital Course and Treatment Consultations 12/01/20 19:04 Consult: Onc/Wound/manager unix Routine Comment: Summary of Care Provided: Hospitalist note: Discharge summary above reviewed and I concur with above discharge and treatment plan. Patient was admitted because of odor coming from her decubitus ulcer and she was admitted for evaluation. In the emergency department, patient refused to take off the wound VAC and refused to go for CT scan abdomen to rule out abscess formation. She had surgery for decubitus ulcer on May, at [facility], was discharged to rehabilitation unit until November 21, 2020 when she decided to leave the hospital because she was going to lose her Social Security benefits. She was discharged with wound VAC on on her sacral ulcer. The visiting home health nurse came to her home after discharge and informed the patient that there is odor coming out from the ulcer and she need to go to the hospital to be evaluated. She was found to have infected: Stage IV sacral decubitus ulcer with sacral osteomyelitis. She was treated with IV Zosyn. Dr. Mack was consulted and he recommended surgery. Initially, patient refused to go for surgery and refused to go for CT scan pelvis. Later, patient changed her mind and she was agreeable to go for surgery and agreeable to have the CT scan pelvis done. CT scan pelvis done without contrast and showed 5 cm decubitus ulcer extending into the posterior cortex of the sacrum with osteomyelitis and destruction of the distal sacrum, no abscess formation. Wound culture revealed Proteus mirabilis. Blood culture showed no growth in 5 days. Infectious disease consulted to adjust antibiotics. The plan was to go for surgery today December 07, 2020 but surgical intervention postponed at this time. Decision was made to discharge patient on IV antibiotics. PICC line was inserted. Infectious disease recommended IV ertapenem daily for 35 days. Patient was found to have acute on chronic anemia. There was no active bleeding or blood loss. She received 1 unit of packed RBCs and she was continued on iron supplement patient discharged home in a stable medical condition, discharged on IV ertapenem as above, plan to follow-up with Dr. Mack in 1 week and recommended follow-up with PCP in 1 week. This note was generated with [employer] software. It may contain incorrect words, spelling, and punctuation that were not noted in checking the note before signing. - Physical Exam Vitals/I&O's: Vital Signs Temp Pulse Resp BP Pulse Ox 98.9 F 55 L 18 124/35 H 98 12/07/20 03:01 12/07/20 03:01 12/07/20 03:01 12/07/20 03:01 12/07/20 03:01 Oxygen Flow Rate (L/min) 2 Oxygen Delivery Method Room Air Weight: 254 lb 6.403 oz Body Mass Index (BMI) 42.3 Finger Stick Blood Glucose 111 Intake and Output for Last 24 Hours 12/05/20 12/06/20 12/07/20 23:59 23:59 23:59 Intake Total 1700 / 1700 1420 / 1720 749.5 / 749.5 Output Total 2900 / 2900 2615 / 3765 1625 / 1625 Balance -1200 / -1200 -1195 / -2045 -875.5 / -875.5 Microbiology Past 72 Hours 12/01/20 16:00 Blood Culture (Wb) - Anticubital Left Blood Culture - Final No growth in 5 days. 12/01/20 15:42 Blood Culture (Wb) - Left Forearm Blood Culture - Final No growth in 5 days. 12/01/20 22:50 Wound Abcess - Other Gram Stain - Final 12/01/20 22:50 Wound Abcess - Other Wound Culture - Final Proteus mirabilis Laboratory Results 12/07/20 06:10: WBC 6.6, RBC 3.30 L, Hgb 7.8 L, Hct 26.2 L, MCV 79.4 L, MCH 23.6 L, MCHC 29.8 L, RDW Std Deviation 47.2 H, RDW Coeff of Ash 16.4 H, Plt Count 264, MPV 9.6 12/07/20 06:10: Sodium 136, Potassium 4.4, Chloride 103, Carbon Dioxide 28.0, Anion Gap 5, BUN 46 H, Creatinine 0.98, Estim Creat Clear Calc 50.81, Est GFR (MDRD) Af Amer 73, Est GFR (MDRD) Non-Af 60, BUN/Creatinine Ratio 46.7 H, Glucose 209 H, Calcium 8.1 L Current Medications Acetaminophen (Acetaminophen 325 Mg Tablet) 650 mg PO Q6H PRN PRN PRN Reason: Pain Score 1-10/Temp > 100.7 F Last Admin: 12/07/20 00:01 Dose: 650 mg Documented by: Albuterol Sulfate (Albuterol 2.5 Mg/3 Ml Vial.Neb.) 2.5 mg INHALATION Q4H PRN PRN PRN Reason: Shortness of breath, wheezing Amlodipine Besylate (Amlodipine 2.5 Mg Tablet) 2.5 mg PO DAILY [facility] Last Admin: 12/07/20 10:42 Dose: 2.5 mg Documented by: Aspirin (Aspirin 81 Mg Tab.Chew) 81 mg PO DAILY@0800 [facility] Last Admin: 12/07/20 10:41 Dose: 81 mg Documented by: Atorvastatin Calcium (Atorvastatin Calcium 20 Mg Tablet) 20 mg PO QHS [facility] Last Admin: 12/06/20 21:03 Dose: 20 mg Documented by: Buspirone HCl (Buspirone 5 Mg Tablet) 5 mg PO BID [facility] Last Admin: 12/07/20 10:42 Dose: 5 mg Documented by: Enoxaparin Sodium (Enoxaparin 40 Mg/0.4 Ml Syringe) 40 mg SC DAILY [facility] Last Admin: 12/07/20 10:44 Dose: 40 mg Documented by: Ferrous Sulfate (Ferrous Sulfate 325 Mg Tablet) 325 mg PO DAILY@0800 [facility] Last Admin: 12/07/20 10:41 Dose: 325 mg Documented by: Furosemide (Furosemide 40 Mg Tablet) 40 mg PO DAILY [facility] Last Admin: 12/07/20 10:45 Dose: 40 mg Documented by: Gabapentin (Gabapentin 600 Mg Tablet) 600 mg PO BID [facility] Last Admin: 12/07/20 10:46 Dose: 600 mg Documented by: Hydromorphone HCl (Hydromorphone 1 Mg/Ml Syringe) 1 mg IV Q4H PRN PRN PRN Reason: Pain Score 6-10 Last Admin: 12/07/20 10:35 Dose: 1 mg Documented by: Sodium Chloride () 250 mls @ 15 mls/hr IV .[id number] PRN PRN Reason: Saline Flush Last Infusion: 12/07/20 11:25 Dose: 15 mls/hr Documented by: Insulin Glargine (Insulin Glargine 100 Units/Ml Pen) 40 units SC BID [facility] Last Admin: 12/07/20 10:54 Dose: 40 u Documented by: Insulin Human Lispro (Insulin Lispro 100 Unit/Ml Insuln.Pen) 0 unit SC ACHS [facility]; Protocol Last Admin: 12/07/20 06:27 Dose: Not Given Documented by: Memantine (Memantine Hydrochloride 5 Mg Tablet) 5 mg PO DAILY [facility] Last Admin: 12/07/20 10:42 Dose: 5 mg Documented by: Metoprolol Tartrate (Metoprolol Tartrate 25 Mg Tablet) 25 mg PO BID [facility] Last Admin: 12/06/20 21:03 Dose: 25 mg Documented by: Nystatin (Nystatin Powder 15gm Bottle) 1 applic TOPICAL BID [facility]; Protocol Last Admin: 12/07/20 10:45 Dose: 1 applicatio Documented by: Ondansetron HCl (Ondansetron 4 Mg/2 Ml Vial) 4 mg IV Q8H PRN PRN PRN Reason: NAUSEA/VOMITING Last Admin: 12/05/20 22:12 Dose: 4 mg Documented by: Oxycodone HCl (Oxycodone 5 Mg Tablet) 5 mg PO Q4H PRN PRN PRN Reason: Pain Score 4-5 Last Admin: 12/06/20 17:03 Dose: 5 mg Documented by: Pantoprazole Sodium (Pantoprazole Sodium 20 Mg Tablet) 20 mg PO DAILY [facility] Last Admin: 12/07/20 10:41 Dose: 20 mg Documented by: Senna/Docusate Sodium (Senna/Docusate Sodium 1 Tablet) 2 tablet PO BID PRN PRN PRN Reason: Constipation Sodium Chloride (0.9% Saline Lock 10 Ml Syringe) 10 - 40 ml IV UD PRN PRN Reason: SALINE FLUSH Last Admin: 12/07/20 10:36 Dose: 10 ml Documented by: Sodium Hypochlorite (Dakin's Geovanna Half Strength (=0.25%)) 1 applic TOPICAL DAILY [facility]; Protocol Last Admin: 12/07/20 10:57 Dose: 1 applicatio Documented by: Tramadol HCl (Tramadol 50 Mg Tablet) 50 mg PO Q8H PRN PRN PRN Reason: Pain Score 4-10 Last Admin: 12/07/20 00:01 Dose: 50 mg Documented by: Venlafaxine HCl (Venlafaxine Xr 75 Mg Capsule) 75 mg PO DAILY [facility] Last Admin: 12/07/20 10:42 Dose: 75 mg Documented by: Zolpidem Tartrate (Zolpidem Tartrate 5 Mg Tablet) 5 mg PO QHS PRN PRN PRN Reason: INSOMNIA Last Admin: 12/07/20 00:01 Dose: 5 mg Documented by: Disposition: Home with Home Health Minutes spent on discharge:: 32 Patient Condition:: Stable Meaningful Use Info Meaningful Use Diagnoses (Choose all that apply): None applicable Inpatient E&M: [id number] [facility]
--- NOTE | 2020-12-07 12:30 | CASEMGMT ---
ESTEFANIA BURKS received call back from [facility] that IV ATBs are confirmed and will be delivered this evening. ESTEFANIA BURKS received call back from [facility] and they are able to accept patient back. ESTEFANIA BURKS coordinated start of care for 3/3 around 1030 when next dose of ATB due. ESTEFANIA BURKS updated patient. ESTEFANIA BURKS updated hospitalist as well.
[2020-12-07] MEDS: Insulin Lispro 100 UNIT/ML INSULN.PEN SC (13:06)
[2020-12-07 15:07] VITALS: BP 116/71; PULSE 80; RESP 18; TEMP 37; O2SAT 98
--- NOTE | 2020-12-07 15:13 | PHA.DC.MR ---
Pharmacy Service has performed discharge medication reconciliation for this patient. The patient's discharge medication list was reviewed for discrepancies and discrepancies were resolved. Home Medications Atorvastatin Calcium [Lipitor] 20 mg PO QHS 03/24/15 Metoprolol Tartrate [Lopressor (beta liza)] 25 mg PO BID 03/24/15 Omeprazole [Prilosec] 20 mg PO DAILY 03/24/15 Albuterol Aerosols [Ventolin Aerosols] 2.5 mg INHALATION Q6HWA.RT PRN 09/10/16 traMADol [Ultram] 50 mg PO Q8H PRN PRN 12/25/17 Ferrous Sulfate 325 mg PO DAILY@0800 02/18/20 Amlodipine [Norvasc] 2.5 mg PO DAILY 12/02/20 Aspirin [Aspirin, Baby] 81 mg PO DAILY@0800 12/02/20 Clopidogrel Bisulfate [Plavix] 75 mg PO DAILY 12/02/20 Furosemide [Lasix] 40 mg PO DAILY 12/02/20 Gabapentin 600 mg PO BID 12/02/20 Insulin Lispro [Humalog KwikPen] See Protocol [facility] ACHS 12/02/20 Memantine HCl 5 mg PO DAILY 12/02/20 Nystatin Powder [Mycostatin Powder] 1 applic TOPICAL TID 12/02/20 Venlafaxine HCl [Effexor Xr] 75 mg PO DAILY 12/02/20 busPIRone [Buspar] 5 mg PO BID 12/02/20 Ertapenem Sodium [Ertapenem] 1 gm IV Q24H 35 Days #35 vial 12/07/20 Insulin Glargine [Lantus SoloStar Pen] 40 units SC BID pen 12/07/20 Oxycodone [Oxyir] 5 mg PO Q4H PRN PRN 2 Days #10 tab 12/07/20 Sodium Hypochlorite [Dakins Solution 0.25% (1/2 Strength)] 1 applic TOPICAL DAILY bottle 12/07/20
--- NOTE | 2020-12-07 18:15 | NURSING ---
Pt already packed her machine that tells what her blood sugar was and refused for this nurse to check it with the accu check machine we have. Pt will check her blood sugar when she gets home and give herself insulin according to what she takes at home.
--- NOTE | 2020-12-08 12:53 | NURSING ---
ZAKIA DC F/U Call: Discharge Date: 12/07/20 Discharge Diagnosis: Acute on chronic anemia (Acute), Infected stage IV decubitus ulcer (Acute) Discharge Disposition: Home with Iv Abx Ertapenem Sodium [Ertapenem] 1 gm IV Q24H 35 Days, Oxycodone [Oxyir] 5 mg PO Q4H PRN PRN 2 Days #10 tab PRN Reason: Pain Score 4-5. [facility] L[facility]/Strata: 09/09 Called patient on listed cell phone, introduced self and role. States feeling better, confirmed IV Abx was delivered this morning and [facility] is on their way now to see patient. Denies any issues, concerns, or questions with medications, aftercare instructions or f/u. S. ZAKIA Mock
== END 2020-12-07 18:11 | disposition home health service (06) | DRG 539 ==
LOC: ED 16:50 → MS3 18:17
PROVIDERS: Internal Medicine; Nurse Practitioner Family; Surgery; Admitting Provider Hospitalist; Emergency Provider Emergency Medicine; PCP Family Medicine; Visit Provider Hospitalist
DX: M46.28 Osteomyelitis of vertebra, sacral and sacrococcygeal region (principal); L89.154 Pressure ulcer of sacral region, stage 4; Z68.42 Body mass index [BMI] 45.0-49.9, adult; B96.4 Proteus (mirabilis) (morganii) as the cause of diseases classified elsewhere; E11.51 Type 2 diabetes mellitus with diabetic peripheral angiopathy without gangrene; I65.29 Occlusion and stenosis of unspecified carotid artery; I25.10 Atherosclerotic heart disease of native coronary artery without angina pectoris; I10 Essential (primary) hypertension; J44.9 Chronic obstructive pulmonary disease, unspecified; E78.5 Hyperlipidemia, unspecified; E66.01 Morbid (severe) obesity due to excess calories; F17.210 Nicotine dependence, cigarettes, uncomplicated; F32.9 Major depressive disorder, single episode, unspecified; E11.40 Type 2 diabetes mellitus with diabetic neuropathy, unspecified; E11.69 Type 2 diabetes mellitus with other specified complication; D50.9 Iron deficiency anemia, unspecified; D63.8 Anemia in other chronic diseases classified elsewhere; C51.9 Malignant neoplasm of vulva, unspecified; Z53.8 Procedure and treatment not carried out for other reasons; Z91.19 Patient's noncompliance with other medical treatment and regimen; Z93.3 Colostomy status; Z95.1 Presence of aortocoronary bypass graft; Z79.02 Long term (current) use of antithrombotics/antiplatelets; Z79.4 Long term (current) use of insulin; Z79.82 Long term (current) use of aspirin; Z79.899 Other long term (current) drug therapy; Z86.73 Personal history of transient ischemic attack (TIA), and cerebral infarction without residual deficits
CPT/HCPCS: 36415; 36569; 71045; 72192; 80048; 80053; 80202; 82962; 83036; 83605; 84134; 85025; 85027; 85610; 85730; 86850; 86900; 86901; 86920; 87040; 87070; 87077; 87186; 87205; 87640; 93005; 97110; 97162; 97166; 97802; 97803; 99251; 99285; J7030; J7040; J7050; P9016; A4216; G0463; J2405

== ENCOUNTER → 2020-12-23 19:05 | Outpatient (REF) | payer MEDICARE, MEDICAID, SELFPAY ==
[2020-12-01 18:40] VITALS: BMI 42.3
[2020-12-23 20:06] LABS: Hematocrit 29.6 % (37-47); Hemoglobin 8.8 g/dL (12.0-15.0); Mean Corp Hgb Conc 29.7 g/dL (32-36); Mean Corpuscular Hgb 23.2 pg (27.0-32.0); Mean Corpuscular Volume 77.9 fL (81-99); Mean Platelet Vol. 10.5 fl (6.2-12.0); Platelet Count 325 K/mm3 (150-450); RBC Distribution Width CV 16.7 % (11.6-14.6); RBC Distribution Width SD 47.6 fl (35.1-43.9); White Blood Count 7.2 K/mm3 (4.4-11.0)
[2020-12-23 20:16] LABS: Erythrocyte Sedimentation Rate 79 mm/hr (0-30)
== END ==
LOC: HHLAB 19:05
PROVIDERS: Visit Provider Internal Medicine Infectious Disease
DX: J44.9 Chronic obstructive pulmonary disease, unspecified (principal); E11.21 Type 2 diabetes mellitus with diabetic nephropathy; L89.154 Pressure ulcer of sacral region, stage 4; B96.4 Proteus (mirabilis) (morganii) as the cause of diseases classified elsewhere
CPT/HCPCS: 85027; 85652

== ENCOUNTER 2020-12-30 08:17 | Outpatient (RCR) | payer MEDICARE, MEDICAID, SELFPAY ==
[2020-12-01 18:40] VITALS: BMI 42.3
[2020-12-09 17:46] LABS: Hematocrit 30.4 % (37-47); Hemoglobin 8.9 g/dL (12.0-15.0); Mean Corp Hgb Conc 29.3 g/dL (32-36); Mean Corpuscular Hgb 23.1 pg (27.0-32.0); Mean Platelet Vol. 10.6 fl (6.2-12.0); Platelet Count 326 K/mm3 (150-450); RBC Distribution Width SD 48.1 fl (35.1-43.9); Red Blood Count 3.85 M/mm3 (4.2-5.4); White Blood Count 8.4 K/mm3 (4.4-11.0)
[2020-12-09 18:21] LABS: AST(SGOT) 22 U/L (15-37); Alanine Aminotransfer ALT/SGPT 19 U/L (13-56); Albumin, Serum 2.3 g/dL (3.2-5.0); Alkaline Phosphatase 120 U/L (45-117); Anion Gap 6 (5-15); BUN 21 mg/dL (7-18); BUN/Creat Ratio 29.5 RATIO (10-20); Bilirubin, Direct 0.08 mg/dL (0.00-0.30); Calcium,Total 8.7 mg/dL (8.5-10.1); Chloride 105 mmol/L (98-107); Creatinine, Serum 0.71 mg/dL (0.55-1.02); EST Glomerular Filtration Rate 87 mL/min (>60); Est Glom Filt Rate - Afr Amer 105 mL/min (>60); Globulin 5.5 g/dL (2.2-4.2); Glucose 212 mg/dL (74-106); Potassium 3.6 mmol/L (3.5-5.1); Protein, Total 7.8 g/dL (6.4-8.2); Sodium Level 140 mmol/L (136-145)
[2020-12-09 18:25] LABS: Erythrocyte Sedimentation Rate 106 mm/hr (0-30)
[2020-12-16 18:47] LABS: Erythrocyte Sedimentation Rate 66 mm/hr (0-30); Hematocrit 30.2 % (37-47); Mean Corp Hgb Conc 29.8 g/dL (32-36); Mean Corpuscular Hgb 23.3 pg (27.0-32.0); Mean Corpuscular Volume 78.2 fL (81-99); Mean Platelet Vol. 10.3 fl (6.2-12.0); Platelet Count 382 K/mm3 (150-450); RBC Distribution Width CV 16.6 % (11.6-14.6); RBC Distribution Width SD 47.3 fl (35.1-43.9); Red Blood Count 3.86 M/mm3 (4.2-5.4); White Blood Count 8.2 K/mm3 (4.4-11.0)
[2020-12-16 19:11] LABS: AST(SGOT) 17 U/L (15-37); Alanine Aminotransfer ALT/SGPT 15 U/L (13-56); Albumin, Serum 2.3 g/dL (3.2-5.0); Alkaline Phosphatase 97 U/L (45-117); Anion Gap 8 (5-15); BUN 16 mg/dL (7-18); BUN/Creat Ratio 20.3 RATIO (10-20); Bilirubin, Direct 0.08 mg/dL (0.00-0.30); Calcium,Total 8.8 mg/dL (8.5-10.1); Chloride 101 mmol/L (98-107); Creatinine, Serum 0.79 mg/dL (0.55-1.02); EST Glomerular Filtration Rate 78 mL/min (>60); Est Glom Filt Rate - Afr Amer 94 mL/min (>60); Globulin 5.4 g/dL (2.2-4.2); Glucose 218 mg/dL (74-106); Potassium 3.3 mmol/L (3.5-5.1); Protein, Total 7.7 g/dL (6.4-8.2); Sodium Level 140 mmol/L (136-145)
[2020-12-30 17:28] LABS: Erythrocyte Sedimentation Rate 101 mm/hr (0-30); Hematocrit 28.9 % (37-47); Hemoglobin 8.8 g/dL (12.0-15.0); Mean Corp Hgb Conc 30.4 g/dL (32-36); Mean Corpuscular Hgb 23.4 pg (27.0-32.0); Mean Corpuscular Volume 76.9 fL (81-99); Mean Platelet Vol. 10.9 fl (6.2-12.0); Platelet Count 294 K/mm3 (150-450); RBC Distribution Width CV 16.6 % (11.6-14.6); RBC Distribution Width SD 46.5 fl (35.1-43.9); Red Blood Count 3.76 M/mm3 (4.2-5.4); White Blood Count 7.6 K/mm3 (4.4-11.0)
[2020-12-30 17:45] LABS: AST(SGOT) 9 U/L (15-37); Alanine Aminotransfer ALT/SGPT 9 U/L (13-56); Albumin, Serum 2.3 g/dL (3.2-5.0); Alkaline Phosphatase 80 U/L (45-117); Anion Gap 7 (5-15); BUN 24 mg/dL (7-18); BUN/Creat Ratio 26.3 RATIO (10-20); Calcium,Total 8.5 mg/dL (8.5-10.1); Chloride 102 mmol/L (98-107); Creatinine, Serum 0.91 mg/dL (0.55-1.02); EST Glomerular Filtration Rate 65 mL/min (>60); Est Glom Filt Rate - Afr Amer 79 mL/min (>60); Glucose 157 mg/dL (74-106); Potassium 3.4 mmol/L (3.5-5.1); Protein, Total 7.3 g/dL (6.4-8.2); Sodium Level 139 mmol/L (136-145)
== END 2020-12-30 18:00 | disposition home or self-care (01) ==
LOC: HHLAB 08:17
PROVIDERS: Visit Provider Family Medicine
DX: L89.154 Pressure ulcer of sacral region, stage 4 (principal); E11.40 Type 2 diabetes mellitus with diabetic neuropathy, unspecified; J44.9 Chronic obstructive pulmonary disease, unspecified; M46.28 Osteomyelitis of vertebra, sacral and sacrococcygeal region; B96.4 Proteus (mirabilis) (morganii) as the cause of diseases classified elsewhere; E11.622 Type 2 diabetes mellitus with other skin ulcer
CPT/HCPCS: 80048; 80076; 85027; 85652

== ENCOUNTER → 2020-12-30 17:11 | Outpatient (CLI) | payer MEDICARE, MEDICAID, SELFPAY ==
[2020-12-01 18:40] VITALS: BMI 42.3
== END ==
PROVIDERS: Visit Provider Family Medicine
DX: R69 Illness, unspecified (principal)
CPT/HCPCS: 80048; 80076; 85027; 85652

== ENCOUNTER 2020-12-31 15:12 | Emergency (ER) | payer MEDICARE, MEDICAID, SELFPAY ==
[2020-12-01 18:40] VITALS: BMI 42.3
[2020-12-31 15:14] VITALS: BP 120/51; PULSE 66; RESP 12; TEMP 36.8; O2SAT 98; BMI 45.8
--- NOTE | 2020-12-31 15:40 | CT_ITS ---
INDICATION: abdominal pain EXAMINATION: CT Abdomen And Pelvis W/O Contrast Injection TECHNIQUE: Helically acquired images were obtained of the abdomen and pelvis without the use of IV contrast. A radiation dose optimization technique was used for this scan. Oral contrast: Yes. COMPARISON: 12/04/2020 FINDINGS: Evaluation of the solid organs and vascular structures is limited without intravenous contrast. Visualized lung bases: Right basilar atelectasis/scarring. Liver: Diffusely hypodense consistent with fatty liver. Gallbladder: Surgically absent. Spleen: Unremarkable Pancreas: Mild fatty atrophic changes. Adrenal Glands: Unremarkable Kidneys: Multiple bilateral renal cysts, largest on left measuring 6.9 cm and in the upper pole while the largest on the right measures 2.2 cm also in the upper pole. GI Tract: Left lower quadrant colostomy present. Vasculature: Severe scattered aortoiliac atherosclerotic calcifications. Lymphadenopathy: None Peritoneum: No ascites. Bladder: Collapsed with JAIME catheter present. Reproductive organs: Unremarkable Bones/Soft tissues: 3.7 cm decubitus ulcer at the level of the distal sacrum. Right hip arthroplasty. CT/Abdomen/Pel W ORAL Cont Only IMPRESSION: No change since prior study on 12/04/2020. 3.7 cm decubitus ulcer. Multiple bilateral renal cysts. Fatty liver. Electronically Signed: Aman Kelly MD at 18:14 EDT Tel , Service support ,
[2020-12-31 16:05] LABS: Absolute Lymphocyte Count 1.94 X10^3/uL (0.83-4.51); Absolute Neutrophil Count 4.5 X10^3/uL (2.0-7.7); Basophil# 0.04 X10^3/uL; Basophil% 0.6 % (0-1); Eosinophil# 0.19 X10^3/uL; Eosinophils% 2.6 % (0-5); Hematocrit 30.3 % (37-47); Hemoglobin 9.1 g/dL (12.0-15.0); Lymphocyte # 1.94 X10^3/ul (4.0); Lymphocyte % 26.9 % (19-41); Mean Corpuscular Hgb 23.3 pg (27.0-32.0); Mean Corpuscular Volume 77.5 fL (81-99); Mean Platelet Vol. 9.9 fl (6.2-12.0); Monocyte# 0.54 X10^3/uL; Monocyte% 7.5 % (0-10); NRBC Flagged by Analyzer 0 % (0-5); Neutrophil # 4.48 X10^3/uL (2.7-7.7); Platelet Count 265 K/mm3 (150-450); RBC Distribution Width CV 16.6 % (11.6-14.6); Red Blood Count 3.91 M/mm3 (4.2-5.4); White Blood Count 7.2 K/mm3 (4.4-11.0)
[2020-12-31 16:19] LABS: ALB/GLOB Ratio 0.5 RATIO (0.9-2.4); AST(SGOT) 10 U/L (15-37); Alanine Aminotransfer ALT/SGPT 10 U/L (13-56); Albumin, Serum 2.4 g/dL (3.2-5.0); Alkaline Phosphatase 80 U/L (45-117); Anion Gap 7 (5-15); BUN 22 mg/dL (7-18); BUN/Creat Ratio 31.3 RATIO (10-20); Calcium,Total 8.6 mg/dL (8.5-10.1); Chloride 103 mmol/L (98-107); EST Glomerular Filtration Rate 89 mL/min (>60); Est Glom Filt Rate - Afr Amer 107 mL/min (>60); Estimated Creatinine Clearance 47.79 ml/min; Globulin 5.2 g/dL (2.2-4.2); Glucose 125 mg/dL (74-106); Potassium 3.7 mmol/L (3.5-5.1); Protein, Total 7.6 g/dL (6.4-8.2); Sodium Level 140 mmol/L (136-145)
--- NOTE | 2020-12-31 16:35 | ED.DCSUM_ITS ---
- ER Visit Summary Date of Service: 12/31/20 Chief Complaint: Wound drainage and clogged PICC line History of Present Illness: The patient is a 65 F who presents with drainage from her sacral wound that became worse today. Home health nurse evaluated and thought there may be a fissure causing some drainage from the wound. Patient is on antibiotics for her wound. Patient states that today when her son went to administer her IV antibiotics through her PICC line he was unable to and it seemed like it was clogged. Upon arrival here, the nursing staff was able to flush the PICC line without any difficulty. Patient does not know the name of the antibiotic that she is on for this. Patient admits to some chronic low back pain. Patient denies any fevers or chills. Patient denies any chest pain or shortness of breath. Patient denies any nausea or vomiting. Patient also has an indwelling Guy catheter. Patient denies any hematuria. Physical Examination: Vital signs are stable. Patient is afebrile. Patient is in no acute distress. Oral mucosa is pink and moist. Neck is supple. Trachea is midline. There is no JVD. Heart was regular rate and rhythm. Lungs are clear but diminished bilaterally. There is adequate respiratory effort. Abdomen is soft. Bowel sounds are normal. There is mild diffuse tenderness. There is no rebound or guarding noted. Extremities are intact. There is no calf tenderness or edema. Cranial nerves II through XII are intact. There are no focal motor or sensory deficits. The wound was evaluated. I do not see any fissures or fistula. I do not see any purulent drainage. Test Results: CBC shows a mild anemia with a hemoglobin of 9.1 and hematocrit of 30.3. This is unchanged. White blood cell count was normal. Comprehensive metabolic profile was essentially within normal limits. Urinalysis does not show any evidence of urinary tract infection. CT scan of the abdomen and pelvis was obtained. There is no acute intra-abdominal process noted. This was interpreted by the radiologist and reviewed by myself. Emergency Department Course and Treatment: Patient was given a dose of morphine here. Patient was able to contact her son who told her that the antibiotic she was on is ertapenem. Patient was given her normal dose of ertapenem. Patient was instructed to follow-up with her primary care physician in 5 to 7 days. Patient understood and was agreeable with the plan. All questions were answered. Disposition: Discharge home Impression: 1. Sacral decubitus ulcer This note was generated with [employer] dictation software. It may contain incorrect words, spelling, and punctuation that were not noted in review of the chart prior to signing ED Disposition - Plan for ED Patient: Disposition: Home or Assisted Living Diagnosis: Sacral decubitus ulcer, stage III, Decubitus ulcer of coccygeal region, stage 3 Referrals: Gera Snider III, MD [Primary Care Provider] - 3-5 Days
[2020-12-31] MEDS: Morphine 4 MG/ML Syringe IV ×2 (16:50→20:16)
[2020-12-31 17:29] VITALS: BP 127/43; PULSE 65; RESP 18; O2SAT 98
[2020-12-31 20:01] VITALS: BP 120/58; PULSE 78; RESP 19; O2SAT 96
--- NOTE | 2020-12-31 20:02 | ED.RN ---
pt verbally abusive to staff.pt demanding that she get moved a little ,she needs food because she is diabetic and when are you going to change my dressing? pulled her pad over and she seemed content with that,provided food for her and unable to do her drsg change.pt stated she needed help to turn and hold her over for the drsg change.edward yash came to help and she yelled at her for laying her down for drsg changed.pt demanded Decon solution and multiple special drsg supplied. pt inspected the tape and stated that if she got any skin ripping you will pay for it! showed pt the tape and she said she hopes that it will work. pt turned to her side and drsg intact.informed pt that her drsg looks good and she might be better served to have her son applied her drsg when she gets home since she has special needs. pt became more verbally abusive to staff. advised the pt that she can have her drsg be changed and then when she gets home have her son remove this drsg and place her proper drsg.pt refused and stated that if I am dying I will never come back here! re-iterated that this nurse is willing to change her buttock drsg now and then advised her to have her son apply what ever cream,solutions,tape and drsg that is best for her.pt refused and then said,don't you dear say I refused. charge nurse,damien babin made aware of the above.
== END 2020-12-31 20:28 | disposition home or self-care (01) ==
PROVIDERS: Emergency Provider Emergency Medicine; PCP Family Medicine
DX: L89.153 Pressure ulcer of sacral region, stage 3 (principal); T82.594A Other mechanical complication of infusion catheter, initial encounter; I25.10 Atherosclerotic heart disease of native coronary artery without angina pectoris; I25.2 Old myocardial infarction; J44.9 Chronic obstructive pulmonary disease, unspecified; E11.9 Type 2 diabetes mellitus without complications; E66.9 Obesity, unspecified; Z95.1 Presence of aortocoronary bypass graft; Z72.0 Tobacco use; Z79.4 Long term (current) use of insulin; Z79.82 Long term (current) use of aspirin; Z79.02 Long term (current) use of antithrombotics/antiplatelets; Z79.899 Other long term (current) drug therapy; Z86.73 Personal history of transient ischemic attack (TIA), and cerebral infarction without residual deficits
CPT/HCPCS: 36592; 74176; 80053; 85025; 96365; 96375; 96376; 99282; J7050; A4216

== ENCOUNTER 2021-01-05 13:25 | Inpatient (IN) | payer MEDICARE, MEDICAID, SELFPAY ==
[2021-01-05] VITALS (11 sets, daily range): BP systolic 97–147; BP diastolic 50–106; PULSE 67–86; RESP 16–19; TEMP 36.4–37.1; O2SAT 96–99; BMI 42.0; BMI 42.1; BMI 44.6
--- NOTE | 2021-01-05 13:46 | CT_ITS ---
STUDY: CT PELVIS WITHOUT CONTRAST REASON FOR EXAM: Female, 65 years old. Sacral ulcer with osteomyelitis RADIATION DOSAGE (If Supplied By Facility): CTDIvol = ( 26.05 ) mGy, DLP = ( 1010.23 ) mGycm TECHNIQUE: Transaxial imaging of the pelvis was performed with oral contrast, and without intravenous administration of contrast material. Individualized dose optimization techniques were used for this CT. COMPARISON: 12/04/2020. FINDINGS: There is a decubitus ulcer seen overlying the sacrum with the osseous erosive changes in the sacrum suspected likely relate with osteomyelitis however best assessed with MRI exam. A left-sided ostomy noted. Midline surgical scarring seen. No drainable fluid collections in the pelvis. There is wall thickening of the urinary bladder. JAIME catheter in the urinary bladder is seen. Small moderate gas in the urinary bladder. Chronic diverticulosis. Right hip arthroplasty. Degenerative changes of the left hip joint. Grade 1 anterolisthesis of L5 on S1 IMPRESSION: Redemonstration of a sacral decubitus ulcer measuring up to 3.7 cm with subcutaneous soft tissue swelling and the inflammatory stranding and subtle osseous erosions in the region of the sacrum concerning for osteomyelitis. Presacral edema also seen. No drainable fluid collections within the limits of this exam. Electronically Signed: Ismael Shirley MD at 15:13 EDT Tel , Service support , CT/Pelvis without IV Contrast
--- NOTE | 2021-01-05 13:54 | EKG12_ITS ---
Test Reason : CONFUSION Blood Pressure : / mmHG Vent. Rate : 066 BPM Atrial Rate : 066 BPM P-R Int : 168 ms QRS Dur : 132 ms QT Int : 446 ms P-R-T Axes : 071 -38 006 degrees QTc Int : 467 ms Normal sinus rhythm Left axis deviation Right bundle branch block Possible Lateral infarct , age undetermined Inferior infarct , age undetermined Abnormal ECG Confirmed by VIVIAN BHAT, LILIAN ([id number]), supervising editor news reel CJ MALLOY ([id number]) on 01/07/2021 12:43:34 PM Referred By: ISAAC Confirmed By:LILIAN PARK MD
--- NOTE | 2021-01-05 13:54 | CT_ITS ---
STUDY: CT BRAIN WITHOUT CONTRAST REASON FOR EXAM: Female, 65 years old. Confusion RADIATION DOSAGE (If Supplied By Facility): CTDIvol = ( 44.99 ) mGy, DLP = ( 812.98 ) mGycm TECHNIQUE: Transaxial CT imaging of the brain was performed without administration of intravenous contrast material. Individualized dose optimization techniques were used for this CT. COMPARISON: No relevant priors. FINDINGS: Normal soft tissue structures. Normal calvarium. Normal size ventricles and extra-axial spaces for the patient''s age. Nonspecific foci of low-attenuation in the periventricular and subcortical white matter seen likely related with chronic small vessel disease.. Chronic, right occipital lobe infarct There is no intracranial hemorrhage. There are no findings of an acute ischemic infarction. Mucosal thickening of the paranasal sinuses CT/Brain/Head without Contrast IMPRESSION: No acute intracranial hemorrhage, mass effect or acute large territory infarcts. Chronic small vessel disease Electronically Signed: Ismael Shirley MD at 15:05 EDT Tel , Service support ,
[2021-01-05 14:01] LABS: Absolute Lymphocyte Count 2.14 X10^3/uL (0.83-4.51); Absolute Neutrophil Count 4.4 X10^3/uL (2.0-7.7); Basophil# 0.04 X10^3/uL; Basophil% 0.5 % (0-1); Eosinophil# 0.23 X10^3/uL; Eosinophils% 3.1 % (0-5); Erythrocyte Sedimentation Rate 53 mm/hr (0-30); Hematocrit 29.7 % (37-47); Hemoglobin 8.8 g/dL (12.0-15.0); Lymphocyte # 2.14 X10^3/ul (4.0); Mean Corp Hgb Conc 29.6 g/dL (32-36); Mean Corpuscular Volume 77.7 fL (81-99); Mean Platelet Vol. 10.4 fl (6.2-12.0); Monocyte% 6.8 % (0-10); NRBC Flagged by Analyzer 0 % (0-5); Neutrophil # 4.43 X10^3/uL (2.7-7.7); Neutrophil % 60.2 % (47-70); Platelet Count 294 K/mm3 (150-450); RBC Distribution Width CV 16.4 % (11.6-14.6); RBC Distribution Width SD 46.5 fl (35.1-43.9); Red Blood Count 3.82 M/mm3 (4.2-5.4); White Blood Count 7.4 K/mm3 (4.4-11.0)
[2021-01-05 14:10] LABS: ALB/GLOB Ratio 0.5 RATIO (0.9-2.4); AST(SGOT) 10 U/L (15-37); Alanine Aminotransfer ALT/SGPT 10 U/L (13-56); Albumin, Serum 2.4 g/dL (3.2-5.0); Alkaline Phosphatase 79 U/L (45-117); Anion Gap 1 (5-15); BUN 12 mg/dL (7-18); BUN/Creat Ratio 17.9 RATIO (10-20); Calcium,Total 8.4 mg/dL (8.5-10.1); Chloride 103 mmol/L (98-107); Creatinine, Serum 0.67 mg/dL (0.55-1.02); EST Glomerular Filtration Rate 93 mL/min (>60); Est Glom Filt Rate - Afr Amer 113 mL/min (>60); Estimated Creatinine Clearance 51.81 ml/min; Globulin 5.3 g/dL (2.2-4.2); Glucose 136 mg/dL (74-106); Potassium 3.8 mmol/L (3.5-5.1); Protein, Total 7.7 g/dL (6.4-8.2); Sodium Level 136 mmol/L (136-145)
[2021-01-05] MEDS: 0.9% Normal Saline 1,000 ML 1000 ML IV (14:35)
[2021-01-05] MEDS: Morphine 4 MG/ML Syringe IV (14:37)
[2021-01-05 15:14] LABS: Mucous, Urine 0 SEEN /hpf (<or=2+); Squamous Epithelial Cells - UA 0 SEEN /hpf (5-10)
[2021-01-05 15:18] LABS: Color, Urine Yellow (Yellow); Glucose, Dipstick Normal (Normal); Ketone-Dipstick 5 mg/dl (Negative); Leukocyte Esterase-Dipstick 100 /ul (Negative); Nitrite-Dipstick Negative (Negative); Occult Blood-Urine 10 /ul (Negative); Protein-Dipstick 30 mg/dl (Negative); Urine Bilirubin Dipstick Negative (Negative); Urine Clarity Sl. Cloudy (Clear); Urine Urobilinogen Normal (Normal)
[2021-01-05 15:26] LABS: Bacteria 1+ /hpf (None Seen); Red Blood Cells-Urine 0 SEEN /hpf (0-5); White Blood Cells 10-25 SEEN /hpf (0-5); Yeast-Urine 3+ /hpf (None Seen)
[2021-01-05 15:33] LABS: Thyroid Stim Hormone (TSH) 3.37 uIU/mL (0.358-3.74)
--- NOTE | 2021-01-05 15:43 | ED.DCSUM_ITS ---
- ER Visit Summary Date of Service: 01/05/21 Chief Complaint: Visual hallucinations History of Present Illness: The patient is a 65 F who reports that she sees Dr. Gera Snider iii. She reports she has not slept for the last 2 nights because of visual hallucinations. States that 2 nights ago it was people that I knew and it was not bad. She reports that last night there were people that she did not know and that she could hear them whispering about witches. Patient denies any suicidal or homicidal ideation. Review of systems: General: No fever, chills, cold sweats. Cardiovascular: No chest pain, palpitations. Respiratory: No cough, shortness of breath, dyspnea on exertion. Gastrointestinal: No abdominal pain, nausea, vomiting, diarrhea, melena, or hematochezia. Genitourinary: No dysuria, frequency, hematuria. Skin: No rash. Neuro: No headache, numbness, weakness. Physical Examination: Vitals: Stable. Afebrile. General: Well-nourished and well-developed. Head: Normocephalic atraumatic. Neck: Supple, no lymphadenopathy. No JVD. Nontender. Cardiovascular: Regular rate and rhythm. No murmurs. Respiratory: No respiratory distress. Clear to auscultation bilaterally. Abdominal: Soft, nontender, nondistended, normal bowel sounds. No guarding, rebound, or peritoneal signs. Back: Nontender. Extremities: Nontender, 2+ pitting edema lower extremities bilaterally. Skin: She has a sacral ulcer with packing in place. There is no purulent drainage.. Neurologic: Alert and oriented ?3. Cranial nerves II through XII are intact. Normal strength and sensation. Test Results: EKG is sinus at [address] changes. CBC shows an H&H of 8.8 and 29.7. Chem-7 shows a glucose 136 and calcium 8.4. LFTs show an albumin 2.4 and globin of 5.3. ALT is 10. AST is 10. UA shows 10-25 white blood cells, 3+ yeast, and 1+ bacteria. Sed rate is 53 which is actually the best it has been since she has been being treated for her sacral osteomyelitis. Emergency Department Course and Treatment: Urine is from her indwelling Guy catheter. This was sent for culture. The patient was given morphine IV prior to her CT for her sacral pain. She reports that she missed her dose of ertapenem today and was given that IV. I spoke with the patient's son who is her workforce management consultant at home. He does confirm that she is having visual hallucinations and is quite confused at night. He believes this is because she was in rehab and had not been on her gabapentin. When she came home on November 22 she got a prescription for 600 mg of gabapentin once a day. She saw her primary care physician on December 17 and it appears that he did not realize the patient's gabapentin had been greatly reduced and he prescribed 800 mg of gabapentin 3 times daily. She started this approximately 1 week ago. Her last dose was at 10:30 PM. Son reports that she has had a great deal of confusion with this medication in the past. Treatment Plan: Patient does seem to have a bit of delirium and confusion that comes and goes here. She does not remember her primary care physician's name at time. She will be discussed with the hospitalist and admitted for observation and further evaluation if her sensorium is not clearing as the gabapentin wears off. Disposition: Admitted in stable condition. Impression: 1. Acute delirium, suspect from gabapentin. 2. Sacral osteomyelitis. 3. Decubitus ulcer. This note was generated with [employer] dictation software. It may contain incorrect words, spelling, and punctuation that were not noted in review of the chart prior to signing ED Disposition - Plan for ED Patient: Referrals: Gera Snider III, MD [Primary Care Provider] -
[2021-01-05 15:50] LABS: Amphetamine Urine VISTA NEGATIVE (<1000 ng/mL); Barbiturate Urine VISTA NEGATIVE (< 200 ng/mL); Benzodiazepine Urine VISTA NEGATIVE (< 200 ng/mL); Cocaine Urine VISTA NEGATIVE (< 300 ng/mL); Ecstacy Urine VISTA NEGATIVE (< 500 ng/mL); Methadone Urine VISTA NEGATIVE (< 300 ng/mL); PCP Urine VISTA NEGATIVE (< 25 ng/mL); THC Urine VISTA NEGATIVE (< 50 ng/mL); Vista UDS pH Range 6
--- NOTE | 2021-01-05 16:00 | HP.PCM_ITS ---
<ModeMarisa CANAL SUPERINTENDENT - Last Filed: 01/05/21 17:03> Problem List (1) Acute on chronic anemia Status: Chronic (2) Infected stage IV decubitus ulcer Status: Chronic (3) COPD (chronic obstructive pulmonary disease) Status: Chronic (4) Cancer of vulva Status: Chronic Comment: Status post radical vulvectomy and radiotherapy in January 2014 (5) Coronary artery disease Status: Chronic Comment: Status post CABG (6) Decubitus ulcer of coccygeal region, stage 3 Status: Chronic (7) Depression Status: Chronic (8) Diabetes mellitus type II Status: Chronic (9) Diabetic neuropathy Status: Chronic (10) Dyslipidemia Status: Chronic (11) Obesity, morbid Status: Chronic (12) Osteomyelitis of pelvic region Status: Chronic (13) Peripheral vascular disease in diabetes mellitus Status: Chronic (14) Pressure ulcer of left heel, stage 2 Status: Chronic (15) Pressure ulcer of sacral region, stage 4 Status: Chronic (16) Stage II pressure ulcer of left buttock Status: Chronic (17) Stage II pressure ulcer of right buttock Status: Chronic (18) Stage III pressure ulcer of sacral region Status: Chronic (19) Tobacco abuse Status: Chronic History of Present Illness Date of Admission: 01/05/21 Chief Complaint: Confusion. The patient is a 65 year old F who presents to the Emergency Room due to confusion, hallucinations. Patient states over the past 2 days she has been seeing bugs crawling over her house, people in her house that were not there. Patient states she has not slept for the past 2 nights. Family and home health nurse note patient has been confused. Patient is alert during assessment however talking about things that are not there. Per ER, patient's PCP recently renewed her home medications and prescribed 800 mg of gabapentin 3 times daily which patient had been on in the past however due to intermittent confusion and lethargy this had been discontinued during previous admission and then resumed at lower dose. Patient denies fever, chills. Denies other symptoms or complaints. She has a past medical history of type 2 diabetes mellitus, chronic infected stage IV recurrent sacral decubitus ulceration, history of CVA, carotid stenosis, CAD with history of CABG, chronic anemia, chronic COPD, hypertension, hyperlipidemia, PVD. Past Medical History Past Medical History (Chronic Problems): Chronic Problems Osteomyelitis of pelvic region (Chronic) Pressure ulcer of sacral region, stage 4 (Chronic) Acute on chronic anemia (Chronic) Infected stage IV decubitus ulcer (Chronic) Stage II pressure ulcer of right buttock (Chronic) Stage II pressure ulcer of left buttock (Chronic) Obesity, morbid (Chronic) Decubitus ulcer of coccygeal region, stage 3 (Chronic) Tobacco abuse (Chronic) COPD (chronic obstructive pulmonary disease) (Chronic) Depression (Chronic) Dyslipidemia (Chronic) Pressure ulcer of left heel, stage 2 (Chronic) Stage III pressure ulcer of sacral region (Chronic) Diabetic neuropathy (Chronic) Peripheral vascular disease in diabetes mellitus (Chronic) Diabetes mellitus type II (Chronic) Coronary artery disease (Chronic) Status post CABG Cancer of vulva (Chronic) Status post radical vulvectomy and radiotherapy in January 2014 Allergies iodine Allergy (Verified 12/31/20 15:14) Rash povidone-iodine [From Betadine] Allergy (Verified 12/31/20 15:14) Itching topical betadine prednisone Allergy (Verified 12/31/20 15:14) tiny mouth ulcers Home Medications: Ambulatory Orders Medication Instructions Recorded Atorvastatin Calcium [Lipitor] 80 mg PO QHS 03/24/15 Metoprolol Tartrate [Lopressor 25 mg PO BID 03/24/15 (beta liza)] Omeprazole [Prilosec] 20 mg PO DAILY 03/24/15 traMADol [Ultram] 50 mg PO Q6H PRN PRN 12/25/17 Ferrous Sulfate 325 mg PO DAILY@0800 02/18/20 Clopidogrel Bisulfate [Plavix] 75 mg PO DAILY 12/02/20 Sodium Hypochlorite [Dakins 1 applic TOPICAL DAILY bottle 12/07/20 Solution 0.25% (1/2 Strength)] Amitriptyline HCl 50 mg PO QHS 01/05/21 Diphenoxylate HCl/Atropine 1 tablet PO BID PRN 01/05/21 [Diphenoxylate-Atrop 2.5-0.025] Duloxetine HCl 60 mg PO DAILY 01/05/21 Ertapenem Sodium [Ertapenem] 1 gm IV DAILY@1400 01/05/21 Gabapentin [Neurontin] 800 mg PO TIDCM 01/05/21 Insulin Aspart [Novolog Vial] 32 units SQ TIDCM 01/05/21 Insulin Glargine [Lantus SoloStar 68 units SC QHS 01/05/21 Pen] Lisinopril [Zestril] 20 mg PO DAILY 01/05/21 Metformin HCl 500 mg PO BIDCM 01/05/21 hydroCHLOROthiazide 12.5 mg PO DAILY 01/05/21 [Hydrochlorothiazide] Surgical History: cataract, cholecystectomy, coronary bypass surgery, tonsillectomy, - - Incision and drainage repeatedly of perirectal abscesses. 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 Lives: With Family Smoking Status: Current every day smoker Tobacco Use: Cigarettes Alcohol: None Drugs: None - *Family History Maternal History Items: Cancer, Diabetes, Hypertension, Pulmonary Disease Paternal History Items: Cancer, Hypertension, Pulmonary Disease Review of Systems Constitutional: Denies: Chills, Fever, Weight Change HEENT: Denies: Head Aches, Sinus Congestion, Sinus Drainage Cardiovascular: Denies: Chest Pain, Palpitations Respiratory: Denies: Cough, Shortness of breath at rest, Sputum production Gastrointestinal: Denies: Abdominal Pain, Nausea, Vomiting Genitourinary: Denies: Dysuria Musculoskeletal: Denies: Joint Pain, Joint Tenderness Skin: Reports: Wounds - chronic infected stage IV recurrent sacral decubitus ulceration. Denies: Rash Neurological: Reports: Confusion, - - Hallucinations. Denies: Focal weakness, Numbness, Tingling Psychiatric: Denies: Anxiety, Depression, Homicidal Ideations, Suicidal Ideations Hematologic/ Lymphatic: Denies: Easy Bruising, Easy Bleeding VTE Information - Inpt Only VTE Present on Admission: No VTE Mechan Device Prophylaxis: None VTE Pharm Prophylaxis ordered?: Yes - Physical Exam Vitals/I&O's: Vital Signs Temp Pulse Resp BP Pulse Ox 97.6 F L 72 16 125/106 H 97 01/05/21 15:11 01/05/21 15:25 01/05/21 15:25 01/05/21 15:25 01/05/21 15:25 Oxygen Delivery Method Room Air Weight: 260 lb 12.909 oz Body Mass Index (BMI) 42.0 Finger Stick Blood Glucose 111 General: Alert, Cooperative, No apparent distress HEENT: Atraumatic, PERRLA, EOMI, Normocephalic Oral: Dry Mucosa Neck: Supple, No JVD, Negative Carotid Bruits Lungs: Clear to auscultation, Diminished Cardiovascular: Regular rate, No murmurs Abdomen: Bowel Sounds Present, Soft, Non Tender, Non-Distended Extremities: No clubbing, No cyanosis, No edema Skin: - - chronic infected stage IV recurrent sacral decubitus ulceration, dressing intact Musculoskeletal: No Tenderness to Palpation of Joints or Extremities Neurological: Cranial nerves II-XII grossly intact, Neuro grossly intact Psych/Mental Status: Delusions Microbiology Past 72 Hours 01/05/21 14:36 Mucosa - Nose SARS-CoV-2 Antigen (Rapid) - Final Laboratory Results 01/05/21 13:30: Ethyl Alcohol 8.0 01/05/21 13:30: WBC 7.4, RBC 3.82 L, Hgb 8.8 L, Hct 29.7 L, MCV 77.7 L, MCH 23.0 L, MCHC 29.6 L, RDW Std Deviation 46.5 H, RDW Coeff of Ash 16.4 H, Plt Count 294, MPV 10.4, Immature Gran % (Auto) 0.400, Neut % (Auto) 60.2, Lymph % (Auto) 29.0, [place] % (Auto) 6.8, Eos % (Auto) 3.1, Baso % (Auto) 0.5, Absolute Neuts (auto) 4.4, Absolute Lymphs (auto) 2.14, Nucleated RBC % 0, ESR 53 H 01/05/21 13:30: Sodium 136, Potassium 3.8, Chloride 103, Carbon Dioxide 32.0, Anion Gap 1 L, BUN 12, Creatinine 0.67, Estim Creat Clear Calc 51.81, Est GFR (MDRD) Af Amer 113, Est GFR (MDRD) Non-Af 93, BUN/Creatinine Ratio 17.9, Glucose 136 H, Calcium 8.4 L, Total Bilirubin 0.30, AST 10 L, ALT 10 L, Alkaline Phosphatase 79, Total Protein 7.7, Albumin 2.4 L, Globulin 5.3 H, Albumin/Globulin Ratio 0.5 L 01/05/21 13:30: TSH 3.37 01/05/21 15:00: Urine Opiates Screen POSITIVE H, Urine Methadone Screen NEGATIVE, Ur Barbiturates Screen NEGATIVE, Ur Phencyclidine Scrn NEGATIVE, Ur Amphetamines Screen NEGATIVE, U Methamphetamin-MDMA NEGATIVE, U Benzodiazepines Scrn NEGATIVE, Urine Cocaine Screen NEGATIVE, U Cannabinoids Screen NEGATIVE, Ur Drug Screen Comment 01/05/21 15:00: Urine Color Yellow, Urine Clarity Sl. Cloudy, Urine pH 6.0, Ur Specific Happy 1.010, Urine Protein 30 H, Urine Glucose (UA) Normal, Urine Ketones 5 H, Urine Occult Blood 10 H, Urine Nitrite Negative, Urine Bilirubin Negative, Urine Urobilinogen Normal, Ur Leukocyte Esterase 100 H, Urine RBC 0 SEEN, Urine WBC 10-25 SEEN, Ur Squamous Epith Cells 0 SEEN, Urine Bacteria 1+, Urine Mucus 0 SEEN, Urine Yeast 3+ Assessment/Plan 1. Acute encephalopathy, suspect medication related-brain CT without acute process. No leukocytosis, afebrile. Tox screen positive for opiates. Patient's gabapentin has been reduced in the past due to confusion/lethargy. She was recently prescribed gabapentin 800 mg 3 times daily which may be contributing to current presentation. Hold sedating regimen. 2. Suspected gabbi UTI- urinalysis positive for 3+ yeast. Begin diflucan. 3. Chronic proteus infected stage IV recurrent sacral decubitus ulceration, with sacral osteomyelitis-secondary to radiation treatment from history of vulval cancer. PICC in place. Patient recently discharge home health on IV ertapenem with stop date 01/12/2021. Patient was to follow up with Dr. Mack at discharge for further evaluation. Repeat CT of pelvis on admission shows sacral decubitus ulcer measuring up to 3.7 cm with subcutaneous soft tissue swelling and inflammation stranding, subcu osseous erosions in the sacrum region concerning for osteomyelitis. 4. Type 2 diabetes mellitus-Recent Hemoglobin A1c 9.2%. Accu-Cheks with sliding scale insulin. Continue home Lantus regimen. 5. History of CVA-on aspirin, statin, Plavix. 6. Carotid stenosis-on aspirin, statin, Plavix. 7. CAD with history of CABG-continue medical management. On aspirin, statin, Plavix. 8. Chronic anemia-at baseline, trend CBC. 9. Chronic COPD-no acute exacerbation. As needed albuterol aerosol. 10. Hypertension-stable, continue amlodipine, lasix, metoprolol. 11. Hyperlipidemia-continue statin. 12. PVD-on aspirin, statin. DVT prophylaxis- Lovenox tx This patient was seen by SARAH Cadena under the supervision of Dr. Desmond silveira. <Patria Oseguera - Last Filed: 01/05/21 17:54> History of Present Illness The patient is a 65 year old F [] Past Medical History Allergies iodine Allergy (Verified 12/31/20 15:14) Rash povidone-iodine [From Betadine] Allergy (Verified 12/31/20 15:14) Itching topical betadine prednisone Allergy (Verified 12/31/20 15:14) tiny mouth ulcers - Physical Exam Vitals/I&O's: Vital Signs Temp Pulse Resp BP Pulse Ox 98.8 F 74 19 H 118/98 H 96 01/05/21 17:21 01/05/21 17:21 01/05/21 17:21 01/05/21 17:21 01/05/21 17:21 Oxygen Delivery Method Room Air Weight: 118.07 kg Body Mass Index (BMI) 44.6 Finger Stick Blood Glucose 111 Intake and Output for Last 24 Hours 01/03/21 01/04/21 01/05/21 23:59 23:59 23:59 Intake Total 60 / 60 Balance 60 / 60 Microbiology Past 72 Hours 01/05/21 14:36 Mucosa - Nose SARS-CoV-2 Antigen (Rapid) - Final Laboratory Results 01/05/21 13:30: Ethyl Alcohol 8.0 01/05/21 13:30: WBC 7.4, RBC 3.82 L, Hgb 8.8 L, Hct 29.7 L, MCV 77.7 L, MCH 23.0 L, MCHC 29.6 L, RDW Std Deviation 46.5 H, RDW Coeff of Ahs 16.4 H, Plt Count 294, MPV 10.4, Immature Gran % (Auto) 0.400, Neut % (Auto) 60.2, Lymph % (Auto) 29.0, [place] % (Auto) 6.8, Eos % (Auto) 3.1, Baso % (Auto) 0.5, Absolute Neuts (auto) 4.4, Absolute Lymphs (auto) 2.14, Nucleated RBC % 0, ESR 53 H 01/05/21 13:30: Sodium 136, Potassium 3.8, Chloride 103, Carbon Dioxide 32.0, Anion Gap 1 L, BUN 12, Creatinine 0.67, Estim Creat Clear Calc 51.81, Est GFR (MDRD) Af Amer 113, Est GFR (MDRD) Non-Af 93, BUN/Creatinine Ratio 17.9, Glucose 136 H, Calcium 8.4 L, Total Bilirubin 0.30, AST 10 L, ALT 10 L, Alkaline Phosphatase 79, Total Protein 7.7, Albumin 2.4 L, Globulin 5.3 H, Albumin/Globulin Ratio 0.5 L 01/05/21 13:30: TSH 3.37 01/05/21 15:00: Urine Opiates Screen POSITIVE H, Urine Methadone Screen NEGATIVE, Ur Barbiturates Screen NEGATIVE, Ur Phencyclidine Scrn NEGATIVE, Ur Amphetamines Screen NEGATIVE, U Methamphetamin-MDMA NEGATIVE, U Benzodiazepines Scrn NEGATIVE, Urine Cocaine Screen NEGATIVE, U Cannabinoids Screen NEGATIVE, Ur Drug Screen Comment 01/05/21 15:00: Urine Color Yellow, Urine Clarity Sl. Cloudy, Urine pH 6.0, Ur Specific Happy 1.010, Urine Protein 30 H, Urine Glucose (UA) Normal, Urine K etones 5 H, Urine Occult Blood 10 H, Urine Nitrite Negative, Urine Bilirubin Negative, Urine Urobilinogen Normal, Ur Leukocyte Esterase 100 H, Urine RBC 0 SEEN, Urine WBC 10-25 SEEN, Ur Squamous Epith Cells 0 SEEN, Urine Bacteria 1+, Urine Mucus 0 SEEN, Urine Yeast 3+ Current Medications Sodium Chloride (0.9% Saline Lock 10 Ml Syringe) 10 - 40 ml IV UD PRN PRN Reason: SALINE FLUSH Assessment/Plan This patient was seen in conjunction with Marisa Coello NP. I have indepen dently interviewed and examined the patient and reviewed pertinent historical, laboratory, and other data. Please refer to her note for patient's presentation, findings, and recommendations. 65 y/o female with PMHx of multiple co-morbidities who comes in for visual hallucinations. She has been seeing bugs crawling around her house and people not there. She has not been able to sleep in 2 days. She recently had been prescribed gabapentin 800 mg 3 times daily from 25 December by her primary care doctor. She previously was on gabapentin 600 mg daily in the care home. No fevers or chills or shortness of breath. Vitals were reviewed -stable Physical Exam: Gen: Comfortable, not pale, not jaundiced, alert oriented x3 CVS:HS I +II, regular, no murmurs RESP: Diminished at lung bases GI: BS present and normal, nontender, no palpable organs EXT:No edema Labs reviewed: ASSESSMENT: 1. Acute metabolic/toxic encephalopathy due to gabapentin overdose 2. Recent chronic Proteus infected stage IV recurrent sacral decubitus ulcer 3. Type 2 DM 4. H/o CVA 5. Carotid stenosis 6. CAD s/p CABG 7. Anemia 8. Hypertension 9. Hyperlipidemia Meds reviewed Plan: Continue on IV ertapenem Hold gabapentin Continue other home medications Inpatient E&M: 74591 Init Hosp L3
--- NOTE | 2021-01-05 16:08 | NURSING ---
PCU PAINTSIL DELIRIUM
[2021-01-05] MEDS: Amitriptyline 25 MG Tablet 50 MG PO (21:21)
[2021-01-05] MEDS: Atorvastatin Calcium 80 MG Tablet PO (21:21)
[2021-01-05] MEDS: Metoprolol Tartrate 25 MG Tablet PO (21:21)
[2021-01-05] MEDS: traMADol 50 MG Tablet PO (21:30)
--- NOTE | 2021-01-05 21:36 | NURSING ---
pt yelling at this nurse that no visitors are allowed because of covid. Pt son NATE called and pt informed him she is seeing thing. Pt said i seen kids in my room. Pt will not allow blood sugar to be checked or to change her wound on coccyx. Pt continues to yell and verbally abusive to this nurse. Jeet die mounter made aware of unable to change dressing on coccyx area or check blood sugar
--- NOTE | 2021-01-05 21:40 | NURSING ---
Pt telling ector on the phone. Since i have been admitted they havent changed my wright cath. Offered to change pt refused
[2021-01-05] MEDS: DAKIN'S SOL HALF STRENGTH (=0.25%) 1 APPLIC TOPICAL (22:13)
--- NOTE | 2021-01-05 22:27 | NURSING ---
pt verbally abuse to staff. Changed the dressing to sacrum. Very insulting to all staff in the room. wound unable to measure because pt is very uncooperative. Attempted to put a pillow under back but pt yelling and very uncooperative so pillow removed
[2021-01-06] VITALS (8 sets, daily range): BP systolic 124–150; BP diastolic 48–72; PULSE 69–92; RESP 16–20; TEMP 36.4–37.1; O2SAT 95–99
--- NOTE | 2021-01-06 02:00 | NURSING ---
Pt requesting pain meds and something for sleep. Called shante rosales and she no to help her sleep. Pt has ultram ordered and was given earlier. Pt told me to do my job and get her something. Pt conts to yell and abuse nursing staff
--- NOTE | 2021-01-06 02:46 | NURSING ---
Pt appears to be sleeping at this time
--- NOTE | 2021-01-06 04:16 | NURSING ---
Pt said if we are not going to give her sleeping meds then she just needs to leave. Inform pt i called shante rosales and she no because of her confusion. Pt said well what do the know. Inform pt i cant give meds w out the md approvable. I was called worthless then. Call dr joseph and he will get for me. Inform pt that we use hospitalist. Pt also called called them worthless
--- NOTE | 2021-01-06 05:00 | NURSING ---
Went into pt room. Pt c/o that her wright is leaking at where the air is put into balloon. inform pt it is dry and did not see any leak in cath. 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 Pt continues to argue with nurse. Pt then taking her monitor off. Informed pt not to take monitor off. Pt repeated i am not a nurse but i aint stupid
[2021-01-06] MEDS: Ferrous Sulfate 325 MG Tablet PO (08:03)
--- NOTE | 2021-01-06 08:03 | PCM.PN.HOSP ---
Reason for Visit: Follow-up on acute encephalopathy Subjective: Patient was seen and examined. Patient still has visual hallucinations. She has been seeing animals and critters. She has been rude to medical care. Objective: Physical exam: General: Confused, obese, not pale, not jaundiced, no apparent distress HEENT: Atraumatic, PERRLA, EOMI, Normocephalic Oral: Dry Mucosa Neck: Supple, No JVD, Negative Carotid Bruits Lungs: Clear to auscultation, Diminished Cardiovascular: Regular rate, No murmurs Abdomen: Bowel Sounds Present, Soft, Non Tender, Non-Distended Extremities: No clubbing, No cyanosis, No edema Skin: - - chronic infected stage IV recurrent sacral decubitus ulceration, dressing intact Musculoskeletal: No Tenderness to Palpation of Joints or Extremities Neurological: Cranial nerves II-XII grossly intact, Neuro grossly intact Vitals/I&O's: Vital Signs Temp Pulse Resp BP Pulse Ox 98.2 F 76 18 124/49 H 97 01/06/21 08:00 01/06/21 08:00 01/06/21 08:00 01/06/21 08:00 01/06/21 08:00 Oxygen Delivery Method Room Air Weight: 118.07 kg Body Mass Index (BMI) 44.6 Finger Stick Blood Glucose 111 Intake and Output for Last 24 Hours 01/04/21 01/05/21 01/06/21 23:59 23:59 23:59 Intake Total 1180 / 1180 110 / 110 Output Total 1100 / 1100 150 / 150 Balance 80 / 80 -40 / -40 Microbiology Past 72 Hours 01/05/21 14:36 Mucosa - Nose SARS-CoV-2 Antigen (Rapid) - Final Laboratory Results 01/05/21 13:30: Ethyl Alcohol 8.0 01/05/21 13:30: WBC 7.4, RBC 3.82 L, Hgb 8.8 L, Hct 29.7 L, MCV 77.7 L, MCH 23.0 L, MCHC 29.6 L, RDW Std Deviation 46.5 H, RDW Coeff of Ash 16.4 H, Plt Count 294, MPV 10.4, Immature Gran % (Auto) 0.400, Neut % (Auto) 60.2, Lymph % (Auto) 29.0, [place] % (Auto) 6.8, Eos % (Auto) 3.1, Baso % (Auto) 0.5, Absolute Neuts (auto) 4.4, Absolute Lymphs (auto) 2.14, Nucleated RBC % 0, ESR 53 H 01/05/21 13:30: Sodium 136, Potassium 3.8, Chloride 103, Carbon Dioxide 32.0, Anion Gap 1 L, BUN 12, Creatinine 0.67, Estim Creat Clear Calc 51.81, Est GFR (MDRD) Af Amer 113, Est GFR (MDRD) Non-Af 93, BUN/Creatinine Ratio 17.9, Glucose 136 H, Calcium 8.4 L, Total Bilirubin 0.30, AST 10 L, ALT 10 L, Alkaline Phosphatase 79, Total Protein 7.7, Albumin 2.4 L, Globulin 5.3 H, Albumin/Globulin Ratio 0.5 L 01/05/21 13:30: TSH 3.37 01/05/21 15:00: Urine Opiates Screen POSITIVE H, Urine Methadone Screen NEGATIVE, Ur Barbiturates Screen NEGATIVE, Ur Phencyclidine Scrn NEGATIVE, Ur Amphetamines Screen NEGATIVE, U Methamphetamin-MDMA NEGATIVE, U Benzodiazepines Scrn NEGATIVE, Urine Cocaine Screen NEGATIVE, U Cannabinoids Screen NEGATIVE, Ur Drug Screen Comment 01/05/21 15:00: Urine Color Yellow, Urine Clarity Sl. Cloudy, Urine pH 6.0, Ur Specific [place] 1.010, Urine Protein 30 H, Urine Glucose (UA) Normal, Urine Ketones 5 H, Urine Occult Blood 10 H, Urine Nitrite Negative, Urine Bilirubin Negative, Urine Urobilinogen Normal, Ur Leukocyte Esterase 100 H, Urine RBC 0 SEEN, Urine WBC 10-25 SEEN, Ur Squamous Epith Cells 0 SEEN, Urine Bacteria 1+, Urine Mucus 0 SEEN, Urine Yeast 3+ Current Medications Amitriptyline HCl (Amitriptyline 25 Mg Tablet) 50 mg PO QHS [facility] Last Admin: 01/05/21 21:21 Dose: 50 mg Documented by: Atorvastatin Calcium (Atorvastatin Calcium 80 Mg Tablet) 80 mg PO QHS [facility] Last Admin: 01/05/21 21:21 Dose: 80 mg Documented by: Clopidogrel Bisulfate (Clopidogrel Bisulfate 75 Mg Tablet) 75 mg PO DAILY [facility] Ferrous Sulfate (Ferrous Sulfate 325 Mg Tablet) 325 mg PO DAILY@0800 [facility] Gabapentin (Gabapentin 800 Mg Tablet) 800 mg PO TIDCM [facility] Hydrochlorothiazide (Hydrochlorothiazide 12.5mg) 12.5 mg PO DAILY [facility] Piperacillin Sod/Tazobactam (Sod 3.375 gm/ Sodium Chloride) 50 mls @ 12.5 mls/hr IV Q8 [facility] Last Admin: 01/06/21 05:18 Dose: 12.5 mls/hr Documented by: Sodium Chloride () 250 mls @ 15 mls/hr IV .[id number] PRN PRN Reason: Saline Flush Last Admin: 01/06/21 05:18 Dose: 15 mls/hr Documented by: Sodium Chloride () 250 mls @ 15 mls/hr IV .[id number] PRN PRN Reason: Additional IVPB Infusion Insulin Glargine (Insulin Glargine 100 Units/Ml Pen) 68 units SC QHS [facility] Last Admin: 01/05/21 22:11 Dose: 68 u Documented by: Insulin Human Lispro (Insulin Lispro 100 Unit/Ml Insuln.Pen) 32 unit SC TIDCM [facility] Lisinopril (Lisinopril 20 Mg Tablet) 20 mg PO DAILY [facility] Metoprolol Tartrate (Metoprolol Tartrate 25 Mg Tablet) 25 mg PO BID [facility] Last Admin: 01/05/21 21:21 Dose: 25 mg Documented by: Pantoprazole Sodium (Pantoprazole Sodium 20 Mg Tablet) 20 mg PO DAILY [facility] Sodium Chloride (0.9% Saline Lock 10 Ml Syringe) 10 - 40 ml IV UD PRN PRN Reason: SALINE FLUSH Sodium Hypochlorite (Dakin's Geovanna Half Strength (=0.25%)) 1 applic TOPICAL DAILY [facility]; Protocol Last Admin: 01/05/21 22:13 Dose: 1 appful Documented by: Tramadol HCl (Tramadol 50 Mg Tablet) 50 mg PO Q6H PRN PRN PRN Reason: Pain Score 4-10 Last Admin: 01/05/21 21:30 Dose: 50 mg Documented by: STROKE Vital Signs/Narrative: Vital Signs Temp Pulse Resp BP Pulse Ox 01/06/21 08:00 98.2 F 76 18 124/49 H 97 01/06/21 04:13 98.8 F 69 18 150/48 H 98 01/06/21 04:08 72 Medical Necessity - Tobacco Use Smoking Status: Current every day smoker Tobacco Use: Cigarettes Assessment/Plan 1. Acute metabolic/toxic encephalopathy due to gabapentin overdose, patient is worse Visual hallucinations persistent; patient is currently actively psychotic She was given 2 mg IV Haldol x1 with no effect, subsequently given Geodon 20 mg IM x1. We will continue patient on Seroquel 25 mg p.o. twice daily 2. Recent chronic Proteus infected stage IV recurrent sacral decubitus ulcer Will continue on Zosyn, ID and wound RN consulted 3. Type 2 DM, refuses blood glucose checks Hold premeal insulin, decrease Lantus to 10 units QHS Hopefully when patient is better and her oral intake is back to normal 4. H/o CVA/Carotid stenosis/CAD s/p CABG/Hypertension/Hyperlipidemia, stable Continue on statin, Plavix, metoprolol 5. DVT PPx-Heparin SC Inpatient E&M: [id number] [facility] L3
[2021-01-06] MEDS: Lisinopril 20 MG Tablet PO (08:04)
[2021-01-06] MEDS: hydroCHLOROthiazide 12.5mg 12.5 MG PO (08:04)
[2021-01-06] MEDS: Clopidogrel Bisulfate 75 MG Tablet PO (08:04)
[2021-01-06] MEDS: Pantoprazole Sodium 20 MG Tablet PO (08:04)
[2021-01-06] MEDS: Metoprolol Tartrate 25 MG Tablet PO ×2 (08:04→20:53)
[2021-01-06 08:30] LABS: Absolute Lymphocyte Count 1.88 X10^3/uL (0.83-4.51); Absolute Neutrophil Count 4.7 X10^3/uL (2.0-7.7); Basophil# 0.04 X10^3/uL; Basophil% 0.5 % (0-1); Eosinophil# 0.26 X10^3/uL; Eosinophils% 3.5 % (0-5); Hematocrit 29.5 % (37-47); Hemoglobin 8.9 g/dL (12.0-15.0); Lymphocyte # 1.88 X10^3/ul (4.0); Lymphocyte % 25.1 % (19-41); Mean Corp Hgb Conc 30.2 g/dL (32-36); Mean Corpuscular Hgb 23.2 pg (27.0-32.0); Mean Corpuscular Volume 76.8 fL (81-99); Mean Platelet Vol. 10.1 fl (6.2-12.0); Monocyte# 0.55 X10^3/uL; Monocyte% 7.3 % (0-10); NRBC Flagged by Analyzer 0 % (0-5); Neutrophil # 4.73 X10^3/uL (2.7-7.7); Neutrophil % 63.2 % (47-70); Platelet Count 296 K/mm3 (150-450); RBC Distribution Width CV 16.5 % (11.6-14.6); RBC Distribution Width SD 46.6 fl (35.1-43.9); Red Blood Count 3.84 M/mm3 (4.2-5.4); White Blood Count 7.5 K/mm3 (4.4-11.0)
[2021-01-06 09:02] LABS: ALB/GLOB Ratio 0.5 RATIO (0.9-2.4); AST(SGOT) 9 U/L (15-37); Alanine Aminotransfer ALT/SGPT 9 U/L (13-56); Albumin, Serum 2.6 g/dL (3.2-5.0); Alkaline Phosphatase 76 U/L (45-117); Anion Gap 3 (5-15); BUN 15 mg/dL (7-18); BUN/Creat Ratio 20.5 RATIO (10-20); Calcium,Total 8.5 mg/dL (8.5-10.1); Chloride 103 mmol/L (98-107); Creatinine, Serum 0.73 mg/dL (0.55-1.02); EST Glomerular Filtration Rate 84 mL/min (>60); Est Glom Filt Rate - Afr Amer 102 mL/min (>60); Estimated Creatinine Clearance 47.79 ml/min; Globulin 5.1 g/dL (2.2-4.2); Glucose 123 mg/dL (74-106); Potassium 3.9 mmol/L (3.5-5.1); Protein, Total 7.7 g/dL (6.4-8.2); Sodium Level 136 mmol/L (136-145)
--- NOTE | 2021-01-06 10:08 | CASEMGMT ---
Per Dr. Daigle, nephro, pt to have tunnel cath placed and needs set up for OP HD for ESRD. Per [facility] website, the only in-network OP dialysis center is [facility] in [place]. This RN CM placed call to [facility] provider line and per Jess, she states that is the closest in-network dialysis center and is aware that it's 20 miles away. Per Jess at [facility], pt can just utilize [id number]. REF# for call [id number] Per Dr. Metcalf, pt is likely going to need SNF placement at discharge. Dr. Daigle updated on all and placed call to [facility] at this time. CM to follow. Kaylin TAYLOR updated on all, voices understanding. [facility] CM
[2021-01-06] MEDS: DAKIN'S SOL HALF STRENGTH (=0.25%) 1 APPLIC TOPICAL (10:26)
--- NOTE | 2021-01-06 10:43 | CON.PCM_ITS ---
Problem List (1) Osteomyelitis of pelvic region Status: Chronic Reason for Consult: osteo Consulted by: Dr. Oseguera History of Present Illness: The patient is a 65 year old F with admission a month ago for sacral osteo. Discharged on 6 weeks iv ertapenem, stop date 01/12/21. Came to ED last night with 2 days of visual hallucinations, seeing bug and snakes everywhere. Wound has been doing well, no fever, no n/v/d. No issues with picc. Abx changed to zosyn on admit. Full ROS performed and neg except as noted above. - Medical History Past Medical History (Chronic Problems): Chronic Problems Osteomyelitis of pelvic region (Chronic) Pressure ulcer of sacral region, stage 4 (Chronic) Acute on chronic anemia (Chronic) Infected stage IV decubitus ulcer (Chronic) Stage II pressure ulcer of right buttock (Chronic) Stage II pressure ulcer of left buttock (Chronic) Obesity, morbid (Chronic) Decubitus ulcer of coccygeal region, stage 3 (Chronic) Tobacco abuse (Chronic) COPD (chronic obstructive pulmonary disease) (Chronic) Depression (Chronic) Dyslipidemia (Chronic) Pressure ulcer of left heel, stage 2 (Chronic) Stage III pressure ulcer of sacral region (Chronic) Diabetic neuropathy (Chronic) Peripheral vascular disease in diabetes mellitus (Chronic) Diabetes mellitus type II (Chronic) Coronary artery disease (Chronic) Status post CABG Cancer of vulva (Chronic) Status post radical vulvectomy and radiotherapy in January 2014 Allergies/Adverse Reactions: Allergies iodine Allergy (Verified 12/31/20 15:14) Rash povidone-iodine [From Betadine] Allergy (Verified 12/31/20 15:14) Itching topical betadine prednisone Allergy (Verified 12/31/20 15:14) tiny mouth ulcers Home Medications: Ambulatory Orders Medication Instructions Recorded Atorvastatin Calcium [Lipitor] 80 mg PO QHS 03/24/15 Metoprolol Tartrate [Lopressor 25 mg PO BID 03/24/15 (beta liza)] Omeprazole [Prilosec] 20 mg PO DAILY 03/24/15 traMADol [Ultram] 50 mg PO Q6H PRN PRN 12/25/17 Ferrous Sulfate 325 mg PO DAILY@0800 02/18/20 Clopidogrel Bisulfate [Plavix] 75 mg PO DAILY 12/02/20 Sodium Hypochlorite [Dakins 1 applic TOPICAL DAILY bottle 12/07/20 Solution 0.25% (1/2 Strength)] Amitriptyline HCl 50 mg PO QHS 01/05/21 Diphenoxylate HCl/Atropine 1 tablet PO BID PRN 01/05/21 [Diphenoxylate-Atrop 2.5-0.025] Duloxetine HCl 60 mg PO DAILY 01/05/21 Ertapenem Sodium [Ertapenem] 1 gm IV DAILY@1400 01/05/21 Gabapentin [Neurontin] 800 mg PO TIDCM 01/05/21 Insulin Aspart [Novolog Vial] 32 units SQ TIDCM 01/05/21 Insulin Glargine [Lantus SoloStar 68 units SC QHS 01/05/21 Pen] Lisinopril [Zestril] 20 mg PO DAILY 01/05/21 Metformin HCl 500 mg PO BIDCM 01/05/21 hydroCHLOROthiazide 12.5 mg PO DAILY 01/05/21 [Hydrochlorothiazide] - Social History Tobacco Use: cigarettes Vital Signs Temp Pulse Resp BP Pulse Ox 98.2 F 76 18 124/49 H 97 01/06/21 08:00 01/06/21 08:04 01/06/21 08:00 01/06/21 08:00 01/06/21 08:00 Oxygen Delivery Method Room Air Weight: 118.07 kg Body Mass Index (BMI) 44.6 Finger Stick Blood Glucose 111 Microbiology Past 72 Hours 01/05/21 14:36 SARS-CoV-2 Antigen (Rapid) - Final Mucosa - Nose Laboratory Tests Past 24 Hrs 01/05/21 01/05/21 01/05/21 13:30 13:30 13:30 WBC 7.4 RBC 3.82 L Hgb 8.8 L Hct 29.7 L MCV 77.7 L MCH 23.0 L MCHC 29.6 L RDW Std Deviation 46.5 H RDW Coeff of Ash 16.4 H Plt Count 294 MPV 10.4 Immature Gran % (Auto) 0.400 Neut % (Auto) 60.2 Lymph % (Auto) 29.0 Carbon % (Auto) 6.8 Eos % (Auto) 3.1 Baso % (Auto) 0.5 Absolute Neuts (auto) 4.4 Absolute Lymphs (auto) 2.14 Nucleated RBC % 0 ESR 53 H Sodium 136 Potassium 3.8 Chloride 103 Carbon Dioxide 32.0 Anion Gap 1 L BUN 12 Creatinine 0.67 Estim Creat Clear Calc 51.81 Est GFR (MDRD) Af Amer 113 Est GFR (MDRD) Non-Af 93 BUN/Creatinine Ratio 17.9 Glucose 136 H Calcium 8.4 L Total Bilirubin 0.30 AST 10 L ALT 10 L Alkaline Phosphatase 79 Total Protein 7.7 Albumin 2.4 L Globulin 5.3 H Albumin/Globulin Ratio 0.5 L TSH Urine Color Urine Clarity Urine pH Ur Specific [place] Urine Protein Urine Glucose (UA) Urine Ketones Urine Occult Blood Urine Nitrite Urine Bilirubin Urine Urobilinogen Ur Leukocyte Esterase Urine RBC Urine WBC Ur Squamous Epith Cells Urine Bacteria Urine Mucus Urine Yeast Urine Opiates Screen Urine Methadone Screen Ur Barbiturates Screen Ur Phencyclidine Scrn Ur Amphetamines Screen U Methamphetamin-MDMA U Benzodiazepines Scrn Urine Cocaine Screen U Cannabinoids Screen Ur Drug Screen Comment Ethyl Alcohol 8.0 01/05/21 01/05/21 01/05/21 13:30 15:00 15:00 WBC RBC Hgb Hct MCV MCH MCHC RDW Std Deviation RDW Coeff of Ash Plt Count MPV Immature Gran % (Auto) Neut % (Auto) Lymph % (Auto) Carbon % (Auto) Eos % (Auto) Baso % (Auto) Absolute Neuts (auto) Absolute Lymphs (auto) Nucleated RBC % ESR Sodium Potassium Chloride Carbon Dioxide Anion Gap BUN Creatinine Estim Creat Clear Calc Est GFR (MDRD) Af Amer Est GFR (MDRD) Non-Af BUN/Creatinine Ratio Glucose Calcium Total Bilirubin AST ALT Alkaline Phosphatase Total Protein Albumin Globulin Albumin/Globulin Ratio TSH 3.37 Urine Color Yellow Urine Clarity Sl. Cloudy Urine pH 6.0 Ur Specific [place] 1.010 Urine Protein 30 H Urine Glucose (UA) Normal Urine Ketones 5 H Urine Occult Blood 10 H Urine Nitrite Negative Urine Bilirubin Negative Urine Urobilinogen Normal Ur Leukocyte Esterase 100 H Urine RBC 0 SEEN Urine WBC 10-25 SEEN Ur Squamous Epith Cells 0 SEEN Urine Bacteria 1+ Urine Mucus 0 SEEN Urine Yeast 3+ Urine Opiates Screen POSITIVE H Urine Methadone Screen NEGATIVE Ur Barbiturates Screen NEGATIVE Ur Phencyclidine Scrn NEGATIVE Ur Amphetamines Screen NEGATIVE U Methamphetamin-MDMA NEGATIVE U Benzodiazepines Scrn NEGATIVE Urine Cocaine Screen NEGATIVE U Cannabinoids Screen NEGATIVE Ur Drug Screen Comment Ethyl Alcohol 01/06/21 01/06/21 08:25 08:25 WBC 7.5 RBC 3.84 L Hgb 8.9 L Hct 29.5 L MCV 76.8 L MCH 23.2 L MCHC 30.2 L RDW Std Deviation 46.6 H RDW Coeff of Ash 16.5 H Plt Count 296 MPV 10.1 Immature Gran % (Auto) 0.400 Neut % (Auto) 63.2 Lymph % (Auto) 25.1 Carbon % (Auto) 7.3 Eos % (Auto) 3.5 Baso % (Auto) 0.5 Absolute Neuts (auto) 4.7 Absolute Lymphs (auto) 1.88 Nucleated RBC % 0 ESR Sodium 136 Potassium 3.9 Chloride 103 Carbon Dioxide 30.0 Anion Gap 3 L BUN 15 Creatinine 0.73 Estim Creat Clear Calc 47.79 Est GFR (MDRD) Af Amer 102 Est GFR (MDRD) Non-Af 84 BUN/Creatinine Ratio 20.5 H Glucose 123 H Calcium 8.5 Total Bilirubin 0.40 AST 9 L ALT 9 L Alkaline Phosphatase 76 Total Protein 7.7 Albumin 2.6 L Globulin 5.1 H Albumin/Globulin Ratio 0.5 L TSH Urine Color Urine Clarity Urine pH Ur Specific [place] Urine Protein Urine Glucose (UA) Urine Ketones Urine Occult Blood Urine Nitrite Urine Bilirubin Urine Urobilinogen Ur Leukocyte Esterase Urine RBC Urine WBC Ur Squamous Epith Cells Urine Bacteria Urine Mucus Urine Yeast Urine Opiates Screen Urine Methadone Screen Ur Barbiturates Screen Ur Phencyclidine Scrn Ur Amphetamines Screen U Methamphetamin-MDMA U Benzodiazepines Scrn Urine Cocaine Screen U Cannabinoids Screen Ur Drug Screen Comment Ethyl Alcohol - Other Studies Radiology: [] reviewed Other Studies: [] Route of nutrition/ use of supplements: [] Nutritional Intake: [] IV Site: [] Guy Catheter: [] - Physical Exam General: Alert, Oriented x3, Cooperative, No apparent distress HEENT: Atraumatic, PERRLA, EOMI Neck: Supple, No Nodes Lungs: Clear to auscultation, Normal air movement Cardiovascular: Regular rate, Regular Rhythm Abdomen: Soft, Non Tender, Non-Distended, Obese, - - ostomy in place Extremities: No edema Skin: Ulcer/ Wound - sacral ulcer clean, no redness IV Site: without redness Musculoskeletal: No Tenderness to Palpation of Joints or Extremities Neurological: Cranial nerves II-XII grossly intact - Assessment/Plan Antibiotics: [] Assessment/Plan: [] 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 On zosyn. Was at home on iv ertapenem, stop date 01/12/21, now admitted with sudden onset visual hallucinations. Abx change to zosyn. Wound doing well. Will follow, thank you
--- NOTE | 2021-01-06 11:26 | NURSING ---
wound photo: sacrum/right buttock
[2021-01-06] MEDS: 0.9% Normal Saline 1,000 ML 125 ML IV ×2 (11:27→18:54)
[2021-01-06] MEDS: Morphine 2 MG/ML Syringe 1 MG IV (11:28)
--- NOTE | 2021-01-06 12:09 | CASEMGMT ---
Addendum entered by Kassie Hood 01/06/21 13:16: Spoke with Paola at [facility] and updated on admission and plan of care, voices understanding. Parish MAC CM Original Note: Readmission chart review: Pt was intially admitted 12/01-12/07/20 for Infected decubitus/A on C anemia and was discharged home with resumption of [facility] HHC and iv antibx set up thru [facility]. See ESTEFANIA BURKS assessment by Walter MAC CM on 12/02/20. Pt had been recommended for SNF but pt declined to go SNF and wanted HHC resumed. Per notes, pt has active case with [facility] and they were notified on pt discharge from [facility]. Pt was seen in [facility] ED on 12/31/20 for clogged PICC line and discharged home. Pt's son has been assisting with IV antibx at home. Pt returned to [facility] ED on 01/05/21 with confusion/hallucinations. Per H&P, pt's PCP had recently ordered gabapentin 800mg three times daily and that was stopped on admission as they believe this may be causing confusion/hallucinations. Pt still with visual hallucinations and disoriented at times. CM to follow. [facility] order placed and message left with Paola at [facility] regarding pt. Parish MAC CM
[2021-01-06] MEDS: Haloperidol Lactate 5 MG/ML Vial 2 MG IV ×2 (12:37→18:53)
[2021-01-06] MEDS: Ziprasidone IM 20 MG/ML VIAL IM (13:15)
--- NOTE | 2021-01-06 14:51 | NURSING ---
Swetha from crisis called to update us. She is seeing if [facility] can still take patient. If they can't she is sending referral to [facility].
[2021-01-06] MEDS: LORazepam 2 MG/ML Syringe IM (20:51)
[2021-01-06] MEDS: DiphenhydrAMINE 50 MG/ML Syringe 25 MG IM (20:51)
[2021-01-06] MEDS: Heparin Injection (Vial) 5,000 UNIT/ML VIAL 5000 UNIT SC (20:52)
[2021-01-06] MEDS: Atorvastatin Calcium 80 MG Tablet PO (20:53)
[2021-01-06] MEDS: QUEtiapine 25 MG Tablet PO (20:53)
[2021-01-07 03:15] VITALS: BP 135/55; PULSE 85; RESP 12; TEMP 36.9; O2SAT 95
[2021-01-07] MEDS: Heparin Injection (Vial) 5,000 UNIT/ML VIAL 5000 UNIT SC (05:04)
[2021-01-07 05:05] LABS: Absolute Neutrophil Count 4.2 X10^3/uL (2.0-7.7); Basophil# 0.03 X10^3/uL; Basophil% 0.5 % (0-1); Eosinophil# 0.33 X10^3/uL; Hematocrit 29.7 % (37-47); Hemoglobin 8.8 g/dL (12.0-15.0); Lymphocyte % 22.7 % (19-41); Mean Corp Hgb Conc 29.6 g/dL (32-36); Mean Corpuscular Hgb 22.9 pg (27.0-32.0); Mean Corpuscular Volume 77.1 fL (81-99); Mean Platelet Vol. 9.8 fl (6.2-12.0); Monocyte# 0.51 X10^3/uL; Monocyte% 7.7 % (0-10); NRBC Flagged by Analyzer 0 % (0-5); Neutrophil # 4.21 X10^3/uL (2.7-7.7); Neutrophil % 63.6 % (47-70); Platelet Count 271 K/mm3 (150-450); RBC Distribution Width CV 16.3 % (11.6-14.6); RBC Distribution Width SD 46.5 fl (35.1-43.9); Red Blood Count 3.85 M/mm3 (4.2-5.4); White Blood Count 6.6 K/mm3 (4.4-11.0)
[2021-01-07 05:23] LABS: ALB/GLOB Ratio 0.5 RATIO (0.9-2.4); AST(SGOT) 12 U/L (15-37); Alanine Aminotransfer ALT/SGPT 12 U/L (13-56); Albumin, Serum 2.4 g/dL (3.2-5.0); Alkaline Phosphatase 74 U/L (45-117); Anion Gap 4 (5-15); BUN 12 mg/dL (7-18); BUN/Creat Ratio 19.6 RATIO (10-20); Calcium,Total 8.4 mg/dL (8.5-10.1); Chloride 103 mmol/L (98-107); Creatinine, Serum 0.61 mg/dL (0.55-1.02); EST Glomerular Filtration Rate 104 mL/min (>60); Est Glom Filt Rate - Afr Amer 126 mL/min (>60); Estimated Creatinine Clearance 47.79 ml/min; Globulin 4.9 g/dL (2.2-4.2); Glucose 125 mg/dL (74-106); Potassium 3.5 mmol/L (3.5-5.1); Protein, Total 7.3 g/dL (6.4-8.2); Sodium Level 138 mmol/L (136-145)
--- NOTE | 2021-01-07 05:55 | EKG12_ITS ---
Test Reason : AM EKG Blood Pressure : / mmHG Vent. Rate : 087 BPM Atrial Rate : 087 BPM P-R Int : 206 ms QRS Dur : 142 ms QT Int : 424 ms P-R-T Axes : 064 -42 021 degrees QTc Int : 510 ms Normal sinus rhythm Left axis deviation Right bundle branch block Lateral infarct , age undetermined Inferior infarct , age undetermined Abnormal ECG When compared with ECG of 05-JAN-2021 14:06, MANUAL COMPARISON REQUIRED, DATA IS UNCONFIRMED Confirmed by SHEKHAR BHAT, HOLLI ([id number]), editorial director KEERTHI DELUCA ([id number]) on 01/14/2021 3:08:22 PM Referred By: GORDON Confirmed By:HOLLI CORRIGAN MD
--- NOTE | 2021-01-07 07:59 | PCM.PN.HOSP ---
Vitals/I&O's: Vital Signs Temp Pulse Resp BP Pulse Ox 98.4 F 85 12 135/55 H 95 01/07/21 03:15 01/07/21 03:15 01/07/21 03:15 01/07/21 03:15 01/07/21 03:15 Oxygen Delivery Method Room Air Weight: 118.1 kg Body Mass Index (BMI) 44.6 Finger Stick Blood Glucose 111 Intake and Output for Last 24 Hours 01/05/21 01/06/21 01/07/21 23:59 23:59 23:59 Intake Total 1180 / 1180 1231.42 / 1231.42 1111.25 / 1111.25 Output Total 1100 / 1100 1100 / 1100 550 / 550 Balance 80 / 80 131.42 / 131.42 561.25 / 561.25 Microbiology Past 72 Hours 01/05/21 14:36 Mucosa - Nose SARS-CoV-2 Antigen (Rapid) - Final Laboratory Results 01/06/21 08:25: WBC 7.5, RBC 3.84 L, Hgb 8.9 L, Hct 29.5 L, MCV 76.8 L, MCH 23.2 L, MCHC 30.2 L, RDW Std Deviation 46.6 H, RDW Coeff of Ash 16.5 H, Plt Count 296, MPV 10.1, Immature Gran % (Auto) 0.400, Neut % (Auto) 63.2, Lymph % (Auto) 25.1, Yell % (Auto) 7.3, Eos % (Auto) 3.5, Baso % (Auto) 0.5, Absolute Neuts (auto) 4.7, Absolute Lymphs (auto) 1.88, Nucleated RBC % 0 01/06/21 08:25: Sodium 136, Potassium 3.9, Chloride 103, Carbon Dioxide 30.0, Anion Gap 3 L, BUN 15, Creatinine 0.73, Estim Creat Clear Calc 47.79, Est GFR (MDRD) Af Amer 102, Est GFR (MDRD) Non-Af 84, BUN/Creatinine Ratio 20.5 H, Glucose 123 H, Calcium 8.5, Total Bilirubin 0.40, AST 9 L, ALT 9 L, Alkaline Phosphatase 76, Total Protein 7.7, Albumin 2.6 L, Globulin 5.1 H, Albumin/Globulin Ratio 0.5 L 01/07/21 05:00: WBC 6.6, RBC 3.85 L, Hgb 8.8 L, Hct 29.7 L, MCV 77.1 L, MCH 22.9 L, MCHC 29.6 L, RDW Std Deviation 46.5 H, RDW Coeff of Ash 16.3 H, Plt Count 271, MPV 9.8, Immature Gran % (Auto) 0.500, Neut % (Auto) 63.6, Lymph % (Auto) 22.7, Yell % (Auto) 7.7, Eos % (Auto) 5.0, Baso % (Auto) 0.5, Absolute Neuts (auto) 4.2, Absolute Lymphs (auto) 1.50, Nucleated RBC % 0 01/07/21 05:00: Sodium 138, Potassium 3.5, Chloride 103, Carbon Dioxide 31.0, Anion Gap 4 L, BUN 12, Creatinine 0.61, Estim Creat Clear Calc 47.79, Est GFR (MDRD) Af Amer 126, Est GFR (MDRD) Non-Af 104, BUN/Creatinine Ratio 19.6, Glucose 125 H, Calcium 8.4 L, Total Bilirubin 0.30, AST 12 L, ALT 12 L, Alkaline Phosphatase 74, Total Protein 7.3, Albumin 2.4 L, Globulin 4.9 H, Albumin/Globulin Ratio 0.5 L Current Medications Atorvastatin Calcium (Atorvastatin Calcium 80 Mg Tablet) 80 mg PO QHS [facility] Last Admin: 01/06/21 20:53 Dose: 80 mg Documented by: Clopidogrel Bisulfate (Clopidogrel Bisulfate 75 Mg Tablet) 75 mg PO DAILY [facility] Last Admin: 01/06/21 08:04 Dose: 75 mg Documented by: Ferrous Sulfate (Ferrous Sulfate 325 Mg Tablet) 325 mg PO DAILY@0800 [facility] Last Admin: 01/06/21 08:03 Dose: 325 mg Documented by: Heparin Sodium (Porcine) (Heparin Injection (Vial) 5,000 Unit/Ml Vial) 5,000 unit SC Q8 [facility] Last Admin: 01/07/21 05:04 Dose: 5,000 unit Documented by: Hydrochlorothiazide (Hydrochlorothiazide 12.5mg) 12.5 mg PO DAILY [facility] Last Admin: 01/06/21 08:04 Dose: 12.5 mg Documented by: Piperacillin Sod/Tazobactam (Sod 3.375 gm/ Sodium Chloride) 50 mls @ 12.5 mls/hr IV Q8 [facility] Last Admin: 01/07/21 05:04 Dose: 12.5 mls/hr Documented by: Sodium Chloride () 250 mls @ 15 mls/hr IV .[id number] PRN PRN Reason: Saline Flush Last Infusion: 01/07/21 05:05 Dose: 0 mls/hr Documented by: Sodium Chloride () 250 mls @ 15 mls/hr IV .[id number] PRN PRN Reason: Additional IVPB Infusion Insulin Glargine (Insulin Glargine 100 Units/Ml Pen) 68 units SC QHS [facility] Last Admin: 01/06/21 20:53 Dose: Not Given Documented by: Insulin Human Lispro (Insulin Lispro 100 Unit/Ml Insuln.Pen) 32 unit SC TIDCM [facility] Last Admin: 01/06/21 17:55 Dose: Not Given Documented by: Lisinopril (Lisinopril 20 Mg Tablet) 20 mg PO DAILY [facility] Last Admin: 01/06/21 08:04 Dose: 20 mg Documented by: Metoprolol Tartrate (Metoprolol Tartrate 25 Mg Tablet) 25 mg PO BID [facility] Last Admin: 01/06/21 20:53 Dose: 25 mg Documented by: Nutritional Formula (Nutritional Supplement (Milo) Packet) 1 packet PO BIDCM [facility] Last Admin: 01/06/21 17:55 Dose: Not Given Documented by: Pantoprazole Sodium (Pantoprazole Sodium 20 Mg Tablet) 20 mg PO DAILY [facility] Last Admin: 01/06/21 08:04 Dose: 20 mg Documented by: Quetiapine Fumarate (Quetiapine 25 Mg Tablet) 25 mg PO BID [facility] Last Admin: 01/06/21 20:53 Dose: 25 mg Documented by: Sodium Chloride (0.9% Saline Lock 10 Ml Syringe) 10 - 40 ml IV UD PRN PRN Reason: SALINE FLUSH Sodium Hypochlorite (Dakin's Geovanna Half Strength (=0.25%)) 1 applic TOPICAL DAILY [facility]; Protocol Last Admin: 01/06/21 10:26 Dose: 1 appful Documented by: Tramadol HCl (Tramadol 50 Mg Tablet) 50 mg PO Q6H PRN PRN PRN Reason: Pain Score 4-10 Last Admin: 01/05/21 21:30 Dose: 50 mg Documented by: Medical Necessity - Tobacco Use Smoking Status: Current every day smoker Tobacco Use: Cigarettes
[2021-01-07 08:00] VITALS: BP 150/58; PULSE 67; RESP 18; TEMP 36.8; O2SAT 95
[2021-01-07] MEDS: DAKIN'S SOL HALF STRENGTH (=0.25%) 1 APPLIC TOPICAL (08:00)
--- NOTE | 2021-01-07 08:36 | NURSING ---
pt yelling and cussing at staff and being very resistant to care being offered. Staff attempt to educate pt on care being provide without effect. pt stated all those fucking nurses allowed my daughter to leave with my $80 fucking cellphone the other night and they didn't do anything to stop her. This nurse attempt to de escalation pt frustration without effect pt continues to yell and swear at staff. pt refusing any care and medication at this time. pt resting in bed with call light within reach. charge account clerk updated. will continue to monitor.
--- NOTE | 2021-01-07 10:53 | CASEMGMT ---
Addendum entered by Kassie Hood 01/07/21 12:39: This RN CM to room, pt is A/Ox4, and pt states she would like to go home with resumption of HHC and son is agreeable per Whit MAC at this time. Call to Paola at [facility] and she is updated on pt, voices understanding. EMERALD order already entered. Paola at [facility] also aware that pt qualifies for palliative c/s via [facility] screening tool and for HHC to f/u with pt regarding same, voices understanding. Pt voices no further questions/concerns/needs. Pt does states she would like cot transport home and Kirsten U membership secretary, aware. Pt voices no further questions/concerns/needs. Per Dr. Gatica, pt to finish home iv antibx with stop date of 01/12/21. Parish MAC CM Original Note: Per Ezequiel Pendleton, coil tester, pt is more back to normal today and no hallucinations this am. Pt is well-known to coil tester. Parish MAC CM
--- NOTE | 2021-01-07 12:06 | PHA.DC.MR ---
Pharmacy Service has performed discharge medication reconciliation for this patient. The patient's discharge medication list was reviewed for discrepancies and discrepancies were resolved. Home Medications Atorvastatin Calcium [Lipitor] 80 mg PO QHS 03/24/15 Metoprolol Tartrate [Lopressor (beta liza)] 25 mg PO BID 03/24/15 Omeprazole [Prilosec] 20 mg PO DAILY 03/24/15 traMADol [Ultram] 50 mg PO Q6H PRN PRN 12/25/17 Ferrous Sulfate 325 mg PO DAILY@0800 02/18/20 Clopidogrel Bisulfate [Plavix] 75 mg PO DAILY 12/02/20 Sodium Hypochlorite [Dakins Solution 0.25% (1/2 Strength)] 1 applic TOPICAL DAILY bottle 12/07/20 Amitriptyline HCl 50 mg PO QHS 01/05/21 Diphenoxylate HCl/Atropine [Diphenoxylate-Atrop 2.5-0.025] 1 tablet PO BID PRN 01/05/21 Duloxetine HCl 60 mg PO DAILY 01/05/21 Ertapenem Sodium [Ertapenem] 1 gm IV DAILY@1400 01/05/21 Gabapentin [Neurontin] 800 mg PO TIDCM 01/05/21 Insulin Aspart [Novolog Vial] 32 units SQ TIDCM 01/05/21 Insulin Glargine [Lantus SoloStar Pen] 68 units SC QHS 01/05/21 Lisinopril [Zestril] 20 mg PO DAILY 01/05/21 Metformin HCl 500 mg PO BIDCM 01/05/21 hydroCHLOROthiazide [Hydrochlorothiazide] 12.5 mg PO DAILY 01/05/21
--- NOTE | 2021-01-07 13:07 | PCM.PN.ID ---
Subjective: Denies hallucinations, no fever, wants to leave - Physical Exam Vitals/I&O's: Vital Signs Temp Pulse Resp BP Pulse Ox 98.3 F 67 18 150/58 H 95 01/07/21 08:00 01/07/21 08:00 01/07/21 08:00 01/07/21 08:00 01/07/21 08:00 Oxygen Delivery Method Room Air Weight: 118.1 kg Body Mass Index (BMI) 44.6 Finger Stick Blood Glucose 111 Intake and Output for Last 24 Hours 01/05/21 01/06/21 01/07/21 23:59 23:59 23:59 Intake Total 1180 / 1180 1231.42 / 1231.42 1161.25 / 1161.25 Output Total 1100 / 1100 1100 / 1100 550 / 550 Balance 80 / 80 131.42 / 131.42 611.25 / 611.25 General: Alert, Cooperative, No apparent distress Lungs: Clear to auscultation, Normal air movement Cardiovascular: Regular rate, Regular Rhythm Abdomen: Soft, Non Tender, Non-Distended Skin: No rashes Microbiology Past 72 Hours 01/05/21 15:08 Blood Culture (Wb) - Anticubital Left Blood Culture - Preliminary No growth in 48 hours. 01/05/21 12:48 Blood Culture (Wb) - Anticubital Left Blood Culture - Preliminary No growth in 48 hours. 01/05/21 10:00 Urine Catheter - Guy Urine Culture - Final Yeast, not Chari albicans 01/05/21 14:36 Mucosa - Nose SARS-CoV-2 Antigen (Rapid) - Final Laboratory Results 01/07/21 05:00: WBC 6.6, RBC 3.85 L, Hgb 8.8 L, Hct 29.7 L, MCV 77.1 L, MCH 22.9 L, MCHC 29.6 L, RDW Std Deviation 46.5 H, RDW Coeff of Ash 16.3 H, Plt Count 271, MPV 9.8, Immature Gran % (Auto) 0.500, Neut % (Auto) 63.6, Lymph % (Auto) 22.7, [place] % (Auto) 7.7, Eos % (Auto) 5.0, Baso % (Auto) 0.5, Absolute Neuts (auto) 4.2, Absolute Lymphs (auto) 1.50, Nucleated RBC % 0 04/02/21 05:00: Sodium 138, Potassium 3.5, Chloride 103, Carbon Dioxide 31.0, Anion Gap 4 L, BUN 12, Creatinine 0.61, Estim Creat Clear Calc 47.79, Est GFR (MDRD) Af Amer 126, Est GFR (MDRD) Non-Af 104, BUN/Creatinine Ratio 19.6, Glucose 125 H, Calcium 8.4 L, Total Bilirubin 0.30, AST 12 L, ALT 12 L, Alkaline Phosphatase 74, Total Protein 7.3, Albumin 2.4 L, Globulin 4.9 H, Albumin/Globulin Ratio 0.5 L Current Medications Atorvastatin Calcium (Atorvastatin Calcium 80 Mg Tablet) 80 mg PO QHS [facility] Last Admin: 01/06/21 20:53 Dose: 80 mg Documented by: Clopidogrel Bisulfate (Clopidogrel Bisulfate 75 Mg Tablet) 75 mg PO DAILY [facility] Last Admin: 01/07/21 11:26 Dose: Not Given Documented by: Ferrous Sulfate (Ferrous Sulfate 325 Mg Tablet) 325 mg PO DAILY@0800 [facility] Last Admin: 01/07/21 08:35 Dose: Not Given Documented by: Heparin Sodium (Porcine) (Heparin Injection (Vial) 5,000 Unit/Ml Vial) 5,000 unit SC Q8 [facility] Last Admin: 01/07/21 05:04 Dose: 5,000 unit Documented by: Hydrochlorothiazide (Hydrochlorothiazide 12.5mg) 12.5 mg PO DAILY [facility] Last Admin: 01/07/21 11:26 Dose: Not Given Documented by: Piperacillin Sod/Tazobactam (Sod 3.375 gm/ Sodium Chloride) 50 mls @ 12.5 mls/hr IV Q8 [facility] Last Infusion: 01/07/21 09:20 Dose: Infused Documented by: Sodium Chloride () 250 mls @ 15 mls/hr IV .[id number] PRN PRN Reason: Saline Flush Last Infusion: 01/07/21 05:05 Dose: 0 mls/hr Documented by: Sodium Chloride () 250 mls @ 15 mls/hr IV .[id number] PRN PRN Reason: Additional IVPB Infusion Insulin Glargine (Insulin Glargine 100 Units/Ml Pen) 68 units SC QHS [facility] Last Admin: 01/06/21 20:53 Dose: Not Given Documented by: Insulin Human Lispro (Insulin Lispro 100 Unit/Ml Insuln.Pen) 32 unit SC TIDCM [facility] Last Admin: 01/06/21 17:55 Dose: Not Given Documented by: Lisinopril (Lisinopril 20 Mg Tablet) 20 mg PO DAILY [facility] Last Admin: 01/07/21 11:27 Dose: Not Given Documented by: Metoprolol Tartrate (Metoprolol Tartrate 25 Mg Tablet) 25 mg PO BID [facility] Last Admin: 01/07/21 11:26 Dose: Not Given Documented by: Nutritional Formula (Nutritional Supplement (Milo) Packet) [facility] Last Admin: 01/07/21 08:35 Dose: Not Given Documented by: Pantoprazole Sodium (Pantoprazole Sodium 20 Mg Tablet) 20 mg PO DAILY [facility] Last Admin: 01/07/21 11:27 Dose: Not Given Documented by: Quetiapine Fumarate (Quetiapine 25 Mg Tablet) 25 mg PO BID [facility] Last Admin: 01/07/21 11:27 Dose: Not Given Documented by: Sodium Chloride (0.9% Saline Lock 10 Ml Syringe) 10 - 40 ml IV UD PRN PRN Reason: SALINE FLUSH Sodium Hypochlorite (Dakin's Geovanna Half Strength (=0.25%)) 1 applic TOPICAL DAILY [facility]; Protocol Last Admin: 01/07/21 08:00 Dose: 1 appful Documented by: Tramadol HCl (Tramadol 50 Mg Tablet) 50 mg PO Q6H PRN PRN PRN Reason: Pain Score 4-10 Last Admin: 01/05/21 21:30 Dose: 50 mg Documented by: Medical Necessity - Tobacco Use Smoking Status: Current every day smoker Tobacco Use: Cigarettes Route of nutrition/ use of supplements: [] Nutritional Intake: [] IV Site: [] Ugy Catheter: [] - Assessment/Plan Antibiotics: [] Assessment/Plan: [] 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 On zosyn. Was at home on iv ertapenem, stop date 01/12/21, now admitted with sudden onset visual hallucinations. Abx change to zosyn. Wound doing well. Ok for home to complete abx as planned. Will follow, d/w rn case mgr
--- NOTE | 2021-01-07 13:31 | PCM.DC ---
- Discharge Diagnoses Current Active Problems: Current Active and Chronic Problems Osteomyelitis of pelvic region (Chronic) Pressure ulcer of sacral region, stage 4 (Chronic) Acute on chronic anemia (Chronic) Infected stage IV decubitus ulcer (Chronic) Stage II pressure ulcer of right buttock (Chronic) Stage II pressure ulcer of left buttock (Chronic) Obesity, morbid (Chronic) Decubitus ulcer of coccygeal region, stage 3 (Chronic) Tobacco abuse (Chronic) COPD (chronic obstructive pulmonary disease) (Chronic) Depression (Chronic) Dyslipidemia (Chronic) Pressure ulcer of left heel, stage 2 (Chronic) Stage III pressure ulcer of sacral region (Chronic) Diabetic neuropathy (Chronic) Peripheral vascular disease in diabetes mellitus (Chronic) Diabetes mellitus type II (Chronic) Coronary artery disease (Chronic) Status post CABG Cancer of vulva (Chronic) Status post radical vulvectomy and radiotherapy in January 2014 Reason(s) for Visit for Discharge Instructions: Acute onset of visual hallucinations You will use the following diet at home:: Calorie/Carbohydrate Controlled (specify 1200, 1400, etc), Cardiac Your food should be the consistency of: Regular Your liquids should be the consistency of: Regular/Thin Discharge Activity: Return to Normal Activity Additional Instructions: Take note of changes to your medications. Your gabapentin has been stopped. Complete your antibiotics as scheduled. Allergies/Adverse Reactions: Allergies iodine Allergy (Verified 12/31/20 15:14) Rash povidone-iodine [From Betadine] Allergy (Verified 12/31/20 15:14) Itching topical betadine prednisone Allergy (Verified 12/31/20 15:14) tiny mouth ulcers Medications to take at Discharge Atorvastatin Calcium [Lipitor] 80 mg PO QHS 03/24/15 Metoprolol Tartrate [Lopressor (beta liza)] 25 mg PO BID 03/24/15 Omeprazole [Prilosec] 20 mg PO DAILY 03/24/15 traMADol [Ultram] 50 mg PO Q6H PRN PRN 12/25/17 Ferrous Sulfate 325 mg PO DAILY@0800 02/18/20 Clopidogrel Bisulfate [Plavix] 75 mg PO DAILY 12/02/20 Sodium Hypochlorite [Dakins Solution 0.25% (1/2 Strength)] 1 applic TOPICAL DAILY bottle 12/07/20 Amitriptyline HCl 50 mg PO QHS 01/05/21 Diphenoxylate HCl/Atropine [Diphenoxylate-Atrop 2.5-0.025] 1 tablet PO BID PRN 01/05/21 Duloxetine HCl 60 mg PO DAILY 01/05/21 Ertapenem Sodium [Ertapenem] 1 gm IV DAILY@1400 01/05/21 Insulin Aspart [Novolog Vial] 32 units SQ TIDCM 01/05/21 Insulin Glargine [Lantus SoloStar Pen] 68 units SC QHS 01/05/21 Lisinopril [Zestril] 20 mg PO DAILY 01/05/21 Metformin HCl 500 mg PO BIDCM 01/05/21 hydroCHLOROthiazide [Hydrochlorothiazide] 12.5 mg PO DAILY 01/05/21 Primary Care Physician: Gera Snider III, MD [Primary Care Provider] - Please follow up with your Primary Care Physician in: within 1-2 weeks Test Results: Test results from this visit will be discussed in further detail at your follow-up appointment, if applicable. Please Follow Up With: Vidya Zamorano DPM When: wound clinic within 1 week Proposed Discharge Date: 01/07/21
--- NOTE | 2021-01-07 13:38 | PCM.DC.SUM ---
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 ulcer - Secondary Discharge Diagnosis Chronic Problems: Chronic Problems Osteomyelitis of pelvic region (Chronic) Pressure ulcer of sacral region, stage 4 (Chronic) Acute on chronic anemia (Chronic) Infected stage IV decubitus ulcer (Chronic) Stage II pressure ulcer of right buttock (Chronic) Stage II pressure ulcer of left buttock (Chronic) Obesity, morbid (Chronic) Decubitus ulcer of coccygeal region, stage 3 (Chronic) Tobacco abuse (Chronic) COPD (chronic obstructive pulmonary disease) (Chronic) Depression (Chronic) Dyslipidemia (Chronic) Pressure ulcer of left heel, stage 2 (Chronic) Stage III pressure ulcer of sacral region (Chronic) Diabetic neuropathy (Chronic) Peripheral vascular disease in diabetes mellitus (Chronic) Diabetes mellitus type II (Chronic) Coronary artery disease (Chronic) Status post CABG Cancer of vulva (Chronic) Status post radical vulvectomy and radiotherapy in January 2014 Hospital Course and Treatment Imaging Results: Clinical Impression(s) from Imaging Studies Pelvis CT 01/05/21 13:[address] 01/05/21 13:54 IMPRESSION: No acute intracranial hemorrhage, mass effect or acute large territory infarcts. Chronic small vessel disease Electronically Signed: Ismael Shirley MD at 15:05 EDT Tel , Service support , Consultations 01/05/21 17:45 Consult: Onc/Wound/automation qtp tester Routine Comment: ID Operations: None Summary of Care Provided: 65 y/o female with PMHx of multiple co-morbidities who comes with visual hallucinations. She has been seeing bugs crawling around her house and people who not living with her. She has not been able to sleep in 2 days. She recently had been prescribed gabapentin 800 mg 3 times daily from 25 December by her primary care doctor. Patient comes in with visual hallucinations. She has seen animals creeping around her house. She knows that these are not real but cannot help but noticed them. Patient was admitted to the telemetry floor, kept on IV fluids. Her gabapentin was held. She continued to see objects around her room. Patient became paranoid requiring use of Geodon and Haldol/Ativan/Benadryl. She subsequently had her visual hallucinations resolved at discharge. During this hospital stay, patient was seen by infectious disease and also by the wound RN. Her wound appeared clean. She was continued on her IV Invanz. His stop date is 01/12/21. Subjective: On the day of discharge, patient was seen and examined. No more having visual hallucinations. Objective: Physical exam: General:Alert, obese, not pale, not jaundiced, no apparent distress HEENT: Atraumatic, PERRLA, EOMI, Normocephalic Oral: Dry Mucosa Neck: Supple, No JVD, Negative Carotid Bruits Lungs: Clear to auscultation, Diminished Cardiovascular: Regular rate, No murmurs Abdomen: Bowel Sounds Present, Soft, Non Tender, Non-Distended Extremities: No clubbing, No cyanosis, No edema Skin: - - chronic infected stage IV recurrent sacral decubitus ulceration, dressing intact Musculoskeletal: No Tenderness to Palpation of Joints or Extremities Neurological: Cranial nerves II-XII grossly intact, Neuro grossly intact - Physical Exam Vitals/I&O's: Vital Signs Temp Pulse Resp BP Pulse Ox 98.3 F 67 18 150/58 H 95 01/07/21 08:00 01/07/21 08:00 01/07/21 08:00 01/07/21 08:00 01/07/21 08:00 Oxygen Delivery Method Room Air Weight: 118.1 kg Body Mass Index (BMI) 44.6 Finger Stick Blood Glucose 111 Intake and Output for Last 24 Hours 01/05/21 01/06/21 01/07/21 23:59 23:59 23:59 Intake Total 1180 / 1180 1231.42 / 1231.42 1161.25 / 1161.25 Output Total 1100 / 1100 1100 / 1100 550 / 550 Balance 80 / 80 131.42 / 131.42 611.25 / 611.25 Microbiology Past 72 Hours 01/05/21 15:08 Blood Culture (Wb) - Anticubital Left Blood Culture - Preliminary No growth in 48 hours. 01/05/21 12:48 Blood Culture (Wb) - Anticubital Left Blood Culture - Preliminary No growth in 48 hours. 01/05/21 10:00 Urine Catheter - Guy Urine Culture - Final Yeast, not Chari albicans 01/05/21 14:36 Mucosa - Nose SARS-CoV-2 Antigen (Rapid) - Final Laboratory Results 01/07/21 05:00: WBC 6.6, RBC 3.85 L, Hgb 8.8 L, Hct 29.7 L, MCV 77.1 L, MCH 22.9 L, MCHC 29.6 L, RDW Std Deviation 46.5 H, RDW Coeff of Ash 16.3 H, Plt Count 271, MPV 9.8, Immature Gran % (Auto) 0.500, Neut % (Auto) 63.6, Lymph % (Auto) 22.7, [place] % (Auto) 7.7, Eos % (Auto) 5.0, Baso % (Auto) 0.5, Absolute Neuts (auto) 4.2, Absolute Lymphs (auto) 1.50, Nucleated RBC % 0 01/07/21 05:00: Sodium 138, Potassium 3.5, Chloride 103, Carbon Dioxide 31.0, Anion Gap 4 L, BUN 12, Creatinine 0.61, Estim Creat Clear Calc 47.79, Est GFR (MDRD) Af Amer 126, Est GFR (MDRD) Non-Af 104, BUN/Creatinine Ratio 19.6, Glucose 125 H, Calcium 8.4 L, Total Bilirubin 0.30, AST 12 L, ALT 12 L, Alkaline Phosphatase 74, Total Protein 7.3, Albumin 2.4 L, Globulin 4.9 H, Albumin/Globulin Ratio 0.5 L Current Medications Atorvastatin Calcium (Atorvastatin Calcium 80 Mg Tablet) 80 mg PO QHS [facility] Last Admin: 01/06/21 20:53 Dose: 80 mg Documented by: Clopidogrel Bisulfate (Clopidogrel Bisulfate 75 Mg Tablet) 75 mg PO DAILY [facility] Last Admin: 01/07/21 11:26 Dose: Not Given Documented by: Ferrous Sulfate (Ferrous Sulfate 325 Mg Tablet) 325 mg PO DAILY@0800 [facility] Last Admin: 01/07/21 08:35 Dose: Not Given Documented by: Heparin Sodium (Porcine) (Heparin Injection (Vial) 5,000 Unit/Ml Vial) 5,000 unit SC Q8 [facility] Last Admin: 01/07/21 05:04 Dose: 5,000 unit Documented by: Hydrochlorothiazide (Hydrochlorothiazide 12.5mg) 12.5 mg PO DAILY [facility] Last Admin: 01/07/21 11:26 Dose: Not Given Documented by: Piperacillin Sod/Tazobactam (Sod 3.375 gm/ Sodium Chloride) 50 mls @ 12.5 mls/hr IV Q8 [facility] Last Infusion: 01/07/21 09:20 Dose: Infused Documented by: Sodium Chloride () 250 mls @ 15 mls/hr IV .[id number] PRN PRN Reason: Saline Flush Last Infusion: 01/07/21 05:05 Dose: 0 mls/hr Documented by: Sodium Chloride () 250 mls @ 15 mls/hr IV .[id number] PRN PRN Reason: Additional IVPB Infusion Insulin Glargine (Insulin Glargine 100 Units/Ml Pen) 68 units SC QHS [facility] Last Admin: 01/06/21 20:53 Dose: Not Given Documented by: Insulin Human Lispro (Insulin Lispro 100 Unit/Ml Insuln.Pen) 32 unit SC TIDCM [facility] Last Admin: 01/06/21 17:55 Dose: Not Given Documented by: Lisinopril (Lisinopril 20 Mg Tablet) 20 mg PO DAILY [facility] Last Admin: 01/07/21 11:27 Dose: Not Given Documented by: Metoprolol Tartrate (Metoprolol Tartrate 25 Mg Tablet) 25 mg PO BID [facility] Last Admin: 01/07/21 11:26 Dose: Not Given Documented by: Nutritional Formula (Nutritional Supplement (Milo) Packet) 1 packet PO BIDCM [facility] Last Admin: 01/07/21 08:35 Dose: Not Given Documented by: Pantoprazole Sodium (Pantoprazole Sodium 20 Mg Tablet) 20 mg PO DAILY [facility] Last Admin: 01/07/21 11:27 Dose: Not Given Documented by: Quetiapine Fumarate (Quetiapine 25 Mg Tablet) 25 mg PO BID [facility] Last Admin: 01/07/21 11:27 Dose: Not Given Documented by: Sodium Chloride (0.9% Saline Lock 10 Ml Syringe) 10 - 40 ml IV UD PRN PRN Reason: SALINE FLUSH Sodium Hypochlorite (Dakin's Geovanna Half Strength (=0.25%)) 1 applic TOPICAL DAILY [facility]; Protocol Last Admin: 01/07/21 08:00 Dose: 1 appful Documented by: Tramadol HCl (Tramadol 50 Mg Tablet) 50 mg PO Q6H PRN PRN PRN Reason: Pain Score 4-10 Last Admin: 01/05/21 21:30 Dose: 50 mg Documented by: Discharge Diet: Low fat/ Low Cholesterol, 1999 Calorie Control Diet, 2000 mg Sodium Diet Discharge Activity: Return to Normal Activity Home Medications: Medications to take at Discharge Atorvastatin Calcium [Lipitor] 80 mg PO QHS 03/24/15 Metoprolol Tartrate [Lopressor (beta liza)] 25 mg PO BID 03/24/15 Omeprazole [Prilosec] 20 mg PO DAILY 03/24/15 traMADol [Ultram] 50 mg PO Q6H PRN PRN 12/25/17 Ferrous Sulfate 325 mg PO DAILY@0800 02/18/20 Clopidogrel Bisulfate [Plavix] 75 mg PO DAILY 12/02/20 Sodium Hypochlorite [Dakins Solution 0.25% (1/2 Strength)] 1 applic TOPICAL DAILY bottle 12/07/20 Amitriptyline HCl 50 mg PO QHS 01/05/21 Diphenoxylate HCl/Atropine [Diphenoxylate-Atrop 2.5-0.025] 1 tablet PO BID PRN 01/05/21 Duloxetine HCl 60 mg PO DAILY 01/05/21 Ertapenem Sodium [Ertapenem] 1 gm IV DAILY@1400 01/05/21 Insulin Aspart [Novolog Vial] 32 units SQ TIDCM 01/05/21 Insulin Glargine [Lantus SoloStar Pen] 68 units SC QHS 01/05/21 Lisinopril [Zestril] 20 mg PO DAILY 01/05/21 Metformin HCl 500 mg PO BIDCM 01/05/21 hydroCHLOROthiazide [Hydrochlorothiazide] 12.5 mg PO DAILY 01/05/21 Primary Care Physician: Gera Snider III, MD [Primary Care Provider] - Please follow up with your Primary Care Physician in: within 1-2 weeks Please Follow Up With: Ever Mack MD When: wound clinic within 1 week Disposition: Home with Home Health Minutes spent on discharge:: 40 Patient Condition:: Stable Medical Necessity - Tobacco Use Smoking Status: Current every day smoker Tobacco Use: Cigarettes Meaningful Use Info Meaningful Use Diagnoses (Choose all that apply): None applicable Inpatient E&M: 19180 Disch Hosp
--- NOTE | 2021-01-07 13:52 | NURSING ---
Son notified this nurse about pt being due for wright catheter change. Pt refused to allow this nurse to change wright. Also refused to all gas charger to change it. will notify son so home health can follow up
--- NOTE | 2021-01-07 14:33 | CASEMGMT ---
Per Xenia at [facility], they will do a EMERALD order on Sunday01/09/21. [facility] CM
[2021-01-07] MEDS: traMADol 50 MG Tablet PO (14:44)
--- NOTE | 2021-01-07 14:46 | NURSING ---
Ultram given per pt request for pain medication before transport could transfer her. discount clerk and rn progressive care unit aware.
--- NOTE | 2021-01-07 17:16 | CASEMGMT ---
Social Work Discharge information faxed to Leia Sepulveda, pt [facility] rn. MAICOL Little
--- NOTE | 2021-01-10 14:42 | CASEMGMT ---
ESTEFANIA BURKS Discharge Follow-up Phone Call: RANI: Salma Strata: 3 Call Date: 01/10/21 Discharge Date: 01/07/21 Time of Call: 1440 Duration: 3 min Admitting Diagnosis: Visual hallucinations ESTEFANIA BURKS completed follow-up phone call after recent hospitalization. Patient states she is doing ok, [facility] has been out to see the patient. Patient had no questions or concerns regarding discharge instructions. Patient concerned with insurance paying for transport for appts. ESTEFANIA BURKS advised patient to follow-up with CM at [facility]. Patient states if she cannot get transport to follow-up appt she will do phone follow-up with PCP.
== END 2021-01-07 14:49 | disposition home or self-care (01) | DRG 539 ==
LOC: ED 16:02 → PCU 17:08
PROVIDERS: Admitting Provider Internal Medicine; Emergency Provider Emergency Medicine; PCP Family Medicine; Visit Provider Internal Medicine
DX: M46.28 Osteomyelitis of vertebra, sacral and sacrococcygeal region (principal); L89.154 Pressure ulcer of sacral region, stage 4; G92 Toxic encephalopathy; Z68.41 Body mass index [BMI] 40.0-44.9, adult; T42.6X1A Poisoning by other antiepileptic and sedative-hypnotic drugs, accidental (unintentional), initial encounter; B96.4 Proteus (mirabilis) (morganii) as the cause of diseases classified elsewhere; R44.1 Visual hallucinations; Y92.009 Unspecified place in unspecified non-institutional (private) residence as the place of occurrence of the external cause; D64.9 Anemia, unspecified; E66.01 Morbid (severe) obesity due to excess calories; J44.9 Chronic obstructive pulmonary disease, unspecified; F32.9 Major depressive disorder, single episode, unspecified; E78.5 Hyperlipidemia, unspecified; E11.40 Type 2 diabetes mellitus with diabetic neuropathy, unspecified; E11.51 Type 2 diabetes mellitus with diabetic peripheral angiopathy without gangrene; I65.29 Occlusion and stenosis of unspecified carotid artery; I25.10 Atherosclerotic heart disease of native coronary artery without angina pectoris; I10 Essential (primary) hypertension; F17.210 Nicotine dependence, cigarettes, uncomplicated; Z79.4 Long term (current) use of insulin; Z79.02 Long term (current) use of antithrombotics/antiplatelets; Z79.899 Other long term (current) drug therapy; Z86.73 Personal history of transient ischemic attack (TIA), and cerebral infarction without residual deficits; Z95.1 Presence of aortocoronary bypass graft; Z85.44 Personal history of malignant neoplasm of other female genital organs; Z79.82 Long term (current) use of aspirin
CPT/HCPCS: 36592; 70450; 72192; 80053; 80307; 81001; 82077; 84443; 85025; 85652; 87040; 87086; 87088; 87426; 93005; 97802; 99285; J7030; J7050; A4216; J3486

== ENCOUNTER 2021-01-27 16:12 | Outpatient (RCR) | payer MEDICARE, MEDICAID, SELFPAY ==
[2021-01-05 17:28] VITALS: BMI 44.6
[2021-01-27 17:16] LABS: Hematocrit 32.5 % (37-47); Hemoglobin 9.7 g/dL (12.0-15.0); Mean Corp Hgb Conc 29.8 g/dL (32-36); Mean Corpuscular Volume 77.2 fL (81-99); Mean Platelet Vol. 10.5 fl (6.2-12.0); Platelet Count 367 K/mm3 (150-450); RBC Distribution Width CV 16.6 % (11.6-14.6); RBC Distribution Width SD 46.9 fl (35.1-43.9); Red Blood Count 4.21 M/mm3 (4.2-5.4); White Blood Count 9.8 K/mm3 (4.4-11.0)
[2021-01-27 17:29] LABS: ALB/GLOB Ratio 0.4 RATIO (0.9-2.4); AST(SGOT) 11 U/L (15-37); Alanine Aminotransfer ALT/SGPT 13 U/L (13-56); Albumin, Serum 2.4 g/dL (3.2-5.0); Alkaline Phosphatase 88 U/L (45-117); Anion Gap 6 (5-15); BUN 19 mg/dL (7-18); BUN/Creat Ratio 24.7 RATIO (10-20); Calcium,Total 7.6 mg/dL (8.5-10.1); Chloride 101 mmol/L (98-107); Creatinine, Serum 0.77 mg/dL (0.55-1.02); EST Glomerular Filtration Rate 80 mL/min (>60); Est Glom Filt Rate - Afr Amer 96 mL/min (>60); Globulin 5.7 g/dL (2.2-4.2); Glucose 178 mg/dL (74-106); Potassium 3.4 mmol/L (3.5-5.1); Protein, Total 8.1 g/dL (6.4-8.2); Sodium Level 136 mmol/L (136-145)
[2021-01-27 17:35] LABS: Hemoglobin A1c 7.4 % (3.8-5.6)
== END 2021-02-04 23:59 ==
LOC: HHLAB 16:12
PROVIDERS: PCP Family Medicine; Referring Provider Internal Medicine Infectious Disease; Visit Provider Family Medicine
DX: L89.154 Pressure ulcer of sacral region, stage 4 (principal)
CPT/HCPCS: 80053; 83036; 85027; 87070; 87075; 87077; 87186; 87205

== ENCOUNTER 2021-02-10 16:48 | Inpatient (IN) | payer MEDICARE, MEDICAID, SELFPAY ==
[2021-01-05 17:28] VITALS: BMI 44.6
[2021-02-10] VITALS (9 sets, daily range): BP systolic 91–125; BP diastolic 45–73; PULSE 74–102; RESP 9–23; TEMP 35.7–36.6; O2SAT 95–100; BMI 41.9
--- NOTE | 2021-02-10 17:01 | EKG12_ITS ---
Test Reason : Blood Pressure : / mmHG Vent. Rate : 079 BPM Atrial Rate : 079 BPM P-R Int : 166 ms QRS Dur : 144 ms QT Int : 440 ms P-R-T Axes : 060 -39 020 degrees QTc Int : 504 ms Normal sinus rhythm Left axis deviation Right bundle branch block Lateral infarct , age undetermined Inferior infarct , age undetermined Abnormal ECG Confirmed by SHEKHAR BHAT, HOLLI ([id number]), photographic editor CJ MALLOY ([id number]) on 02/14/2021 12:44:50 PM Referred By: GARY Confirmed By:HOLLI CORRIGAN MD
--- NOTE | 2021-02-10 17:44 | RAD_ITS ---
HISTORY: Sepsis EXAMINATION/TECHNIQUE: XR Chest 1 View: Portable upright AP chest x-ray COMPARISON: 12/01/20 FINDINGS: LINES/DEVICES: None. LUNGS: No consolidation, edema or effusion. No pneumothorax. MEDIASTINUM AND CARDIOVASCULAR STRUCTURES: Cardiac silhouette not enlarged. Stable CABG changes. Central airways and mediastinal contour are unremarkable. BONES AND SOFT TISSUES: No acute bony abnormalities. RAD/Chest 1 View (Portable) IMPRESSION: No radiographic evidence of acute cardiopulmonary disease. at 1814 Reported and signed by: Fabrizio Ramirez MD Electronically Signed: Fabrizio Ramirez MD at 18:13 EDT Tel , Service support ,
--- NOTE | 2021-02-10 17:50 | CM.ED ---
SOCIAL WORK ASSESSMENT Referral Source: Dr. Ahmadi Reason Consult: Discharge Planning Prior to patient's arrival received call from Nicol with [facility]. Per Nicol, [facility] sending patient in, anticipate need for custodial placement. Met with patient in room. Introduced role and reason for referral. Patient reports lives home with son and wound has been having a lot of drainage, my dressing needs changed 2-3 times a day and my son is not physically able to care for me. Patient reports is open to custodial placement if my insurance pays. Patient requests referral to [facility] or [facility]. Dr. Ahmadi updated on the above. Plan: Admit Chika Otero MSW, SPECIAL PROGRAMS DIRECTOR
[2021-02-10] MEDS: HYDROmorphone 1 MG/ML Syringe IV ×2 (18:17→22:14)
[2021-02-10 18:19] LABS: Absolute Neutrophil Count 7.5 X10^3/uL (2.0-7.7); Basophil# 0.04 X10^3/uL; Basophil% 0.4 % (0-1); Eosinophil# 0.26 X10^3/uL; Eosinophils% 2.6 % (0-5); Hematocrit 35.1 % (37-47); Hemoglobin 10.6 g/dL (12.0-15.0); Lymphocyte % 17.7 % (19-41); Mean Corp Hgb Conc 30.2 g/dL (32-36); Mean Corpuscular Hgb 22.4 pg (27.0-32.0); Mean Corpuscular Volume 74.1 fL (81-99); Mean Platelet Vol. 9.9 fl (6.2-12.0); Monocyte# 0.58 X10^3/uL; Monocyte% 5.7 % (0-10); NRBC Flagged by Analyzer 0 % (0-5); Neutrophil # 7.45 X10^3/uL (2.7-7.7); Neutrophil % 73.3 % (47-70); Platelet Count 374 K/mm3 (150-450); RBC Distribution Width CV 16.9 % (11.6-14.6); RBC Distribution Width SD 45.5 fl (35.1-43.9); Red Blood Count 4.74 M/mm3 (4.2-5.4); White Blood Count 10.2 K/mm3 (4.4-11.0)
[2021-02-10 19:13] LABS: ALB/GLOB Ratio 0.4 RATIO (0.9-2.4); AST(SGOT) 20 U/L (15-37); Alanine Aminotransfer ALT/SGPT 15 U/L (13-56); Albumin, Serum 2.3 g/dL (3.2-5.0); Alkaline Phosphatase 97 U/L (45-117); Anion Gap 8 (5-15); BUN 31 mg/dL (7-18); BUN/Creat Ratio 41.8 RATIO (10-20); Calcium,Total 7.5 mg/dL (8.5-10.1); Chloride 102 mmol/L (98-107); Creatinine, Serum 0.74 mg/dL (0.55-1.02); EST Glomerular Filtration Rate 83 mL/min (>60); Est Glom Filt Rate - Afr Amer 101 mL/min (>60); Globulin 6.1 g/dL (2.2-4.2); Glucose 79 mg/dL (74-106); Potassium 3.7 mmol/L (3.5-5.1); Protein, Total 8.4 g/dL (6.4-8.2); Sodium Level 132 mmol/L (136-145)
[2021-02-10 19:25] LABS: International Normalized Ratio 1.2; Partial Thromboplast Time 33.6 Seconds (24.1-36.2); Prothrombin Time (Protime)PT. 14.2 SECONDS (11.7-14.9)
[2021-02-10 19:36] LABS: Lactic Acid 1.7 mmol/L (0.4-1.9)
[2021-02-10 21:28] LABS: Mucous, Urine 0 SEEN /hpf (<or=2+); Squamous Epithelial Cells - UA 0 SEEN /hpf (5-10)
[2021-02-10 21:36] LABS: Color, Urine Yellow (Yellow); Glucose, Dipstick Normal (Normal); Ketone-Dipstick Negative (Negative); Leukocyte Esterase-Dipstick 500 /ul (Negative); Nitrite-Dipstick Positive (Negative); Occult Blood-Urine 50 /ul (Negative); Protein-Dipstick 30 mg/dl (Negative); Specific Gravity, Urine 1.015 (1.002-1.030); Urine Bilirubin Dipstick Negative (Negative); Urine Clarity Cloudy (Clear); Urine Urobilinogen Normal (Normal)
[2021-02-10 21:44] LABS: Hyaline Cast 0-5 SEEN /lpf (0-5)
[2021-02-10 21:45] LABS: Bacteria 4+ /hpf (None Seen)
[2021-02-10 21:47] LABS: White Blood Cells 5-10 SEEN /hpf (0-5)
[2021-02-10 21:48] LABS: Red Blood Cells-Urine 0-5 SEEN /hpf (0-5)
--- NOTE | 2021-02-10 22:39 | EDS_ITS ---
HPI History of Present Illness Chief Complaint: Wound Narrative Narrative: 65-year-old female patient Dr. Gera Snider, Dr. Gatica, and Dr. Mack. She is a poor informant. She has a history of decubitus ulcers that have required a PICC line. She reports that she has not had any antibiotics this month. States that the last antibiotic was IV Cipro that was then converted to p.o. Cipro. Patient lives at home with her son. [facility] has been coming out and changing her dressing. They came out yesterday and told her they were concerned that there was a lot of drainage from the dressing. They did change it. They came out today and the dressing was soaked and they sent her to the emergency department for evaluation. Patient denies any fever or chills. She denies any abdominal pain, nausea, or vomiting. She reports her colostomy is draining normally. There is been no blood in her drainage. She reports her Guy catheter was changed on February 05. [facility] Medical History Anxiety Chest pain Chronic pain Chronic pain Colostomy in place Colostomy in place Congestive heart failure (CHF) COPD (chronic obstructive pulmonary disease) Coronary artery disease Depression Guy catheter in place Guy catheter in place GERD (gastroesophageal reflux disease) Hearing loss, left Hearing loss, right Hypertension Osteomyelitis due to secondary diabetes Past heart attack Sleep apnea Smoker Smoker Stroke/cerebrovascular accident Stroke/cerebrovascular accident TIA (transient ischemic attack) Vulva cancer Wound cellulitis after surgery Home Medications atorvastatin 80 mg PO QHS 03/24/15 [History Last Taken 01/04/21] metoprolol tartrate 25 mg PO BID 03/24/15 [History Last Taken 01/04/21] omeprazole 20 mg PO DAILY 03/24/15 [History Last Taken 01/04/21] tramadol 50 mg PO Q6H PRN PRN 12/25/17 [History Last Taken 01/04/21] ferrous sulfate 325 mg PO DAILY@0800 02/18/20 [History Last Taken 01/04/21] clopidogrel 75 mg PO DAILY 12/02/20 [History Last Taken 01/04/21] sodium hypochlorite 1 applic TOPICAL DAILY bottle 12/07/20 [Rx Last Taken 01/04/21] amitriptyline 50 mg PO QHS 01/05/21 [History Last Taken 01/04/21] diphenoxylate-atropine 1 tablet PO BID PRN 01/05/21 [History Last Taken 01/04/21] duloxetine 60 mg PO DAILY 01/05/21 [History Last Taken 01/04/21] hydrochlorothiazide 12.5 mg PO DAILY 01/05/21 [History Last Taken 01/04/21] insulin aspart U-100 32 units SQ TIDCM 01/05/21 [History Last Taken 01/04/21] insulin glargine 68 units SC QHS 01/05/21 [History Last Taken 01/04/21] lisinopril 20 mg PO DAILY 01/05/21 [History Last Taken 01/04/21] metformin 500 mg PO BIDCM 01/05/21 [History Last Taken 01/04/21] Allergy/AdvReac Type Severity Reaction Status Date / Time iodine Allergy Rash Verified 02/10/21 16:49 povidone-iodine Allergy Itching Verified 02/10/21 16:49 [From Betadine] prednisone Allergy tiny Verified 02/10/21 16:49 mouth ulcers Surgical History H/O foot surgery History of cholecystectomy History of cholecystectomy History of heart artery stent Hx of CABG Hx of CABG (~01/2015) Previous back surgery Social History Smoking Status: Current every day smoker ROS ROS ED Constitutional Constitutional ED: Denies chills, fever(s) or sweats Eyes Eyes: Denies change in vision ENT ENT ED: Denies sore throat Cardiovascular Cardiovascular: Denies chest pain Respiratory/Chest Respiratory/Chest: Denies cough, dyspnea or dyspnea on exertion Gastrointestinal Gastrointestinal: Denies abdominal pain, diarrhea, melena, nausea or vomiting Genitourinary Genitourinary ED: Denies dysuria or urinary frequency Musculoskeletal Musculoskeletal: Denies myalgias Integumentary Reports rash Neurologic Neurologic: Denies headache(s), paresthesias or weakness EXAM Physical Exam Const Vital Signs: 02/10/21 16:50 02/10/21 16:54 02/10/21 17:54 Temperature 96.2 F L 96.2 F L 98 F Temperature Source Temporal Temporal Temporal Pulse Rate 79 79 79 Respiratory Rate 16 16 16 Blood Pressure 120/54 L 120/54 L 120/54 L Blood Pressure Mean 76 76 76 Pulse Ox 100 99 99 Oxygen Delivery Method Room Air Room Air Room Air 02/10/21 18:00 02/10/21 18:01 02/10/21 18:20 Temperature 98 F 98 F Temperature Source Temporal Temporal Pulse Rate 90 Respiratory Rate 18 Blood Pressure 125/45 H Blood Pressure Mean 71 Pulse Ox 98 Oxygen Delivery Method Room Air Room Air 02/10/21 21:16 02/10/21 22:19 Temperature 96.7 F L 96.9 F L Temperature Source Temporal Temporal Pulse Rate 96 101 H Respiratory Rate 23 H 10 L Blood Pressure 97/73 91/73 Blood Pressure Mean 81 79 Pulse Ox 96 96 Oxygen Delivery Method Room Air Room Air Positive well nourished and well developed General Appearance ED: well developed HEENT Reports normocephalic and head/scalp atraumatic Eyes PERRL Neck no lymphadenopathy, supple and no JVD General: Negative for tenderness Resp normal respiratory effort and clear to auscultation bilaterally Cardio regular rate, regular rhythm and no murmurs GI normal to inspection, nondistended, normoactive bowel sounds and non-tender GI Narrative: No guarding, rebound, or peritoneal signs. Colostomy is draining brown liquid stool. There is no blood. The stoma is pink. Palpation: soft Narrative: Patient has 2 decubitus ulcers. These are each approximately 3 cm in diameter. There is packing in place of each of these. There is a large amount of drainage that is malodorous. This drainage is thin however. It does not appear to be purulent. Back/Spine Back/Spine Narrative: Nontender. Extremity General Extremety ED: Negative for edema or tenderness General Extremity: Negative for edema Neuro oriented x3, CN's II-XII intact bilaterally and no sensory deficits noted Sensorium / Orientation: alert Motor Exam: strength 5/5 throughout Psych mental status grossly normal Skin no rashes or lesions noted MDM MDM Lab Data Labs: Laboratory Results - last 24 hr 02/10/21 02/10/21 02/10/21 18:00 18:00 18:00 WBC 10.2 RBC 4.74 Hgb 10.6 L Hct 35.1 L MCV 74.1 L MCH 22.4 L MCHC 30.2 L RDW Std Deviation 45.5 H RDW Coeff of Ash 16.9 H Plt Count 374 MPV 9.9 Immature Gran % (Auto) 0.300 Neut % (Auto) 73.3 H Lymph % (Auto) 17.7 L Lipscomb % (Auto) 5.7 Eos % (Auto) 2.6 Baso % (Auto) 0.4 Absolute Neuts (auto) 7.5 Absolute Lymphs (auto) 1.80 Nucleated RBC % 0 PT Cancelled INR Cancelled APTT Cancelled Sodium 132 L Potassium 3.7 Chloride 102 Carbon Dioxide 22.0 Anion Gap 8 BUN 31 H Creatinine 0.74 Estim Creat Clear Calc 49.80 Est GFR (MDRD) Af Amer 101 Est GFR (MDRD) Non-Af 83 BUN/Creatinine Ratio 41.8 H Glucose 79 Lactic Acid Calcium 7.5 L Total Bilirubin 0.30 AST 20 ALT 15 Alkaline Phosphatase 97 Total Protein 8.4 H Albumin 2.3 L Globulin 6.1 H Albumin/Globulin Ratio 0.4 L Urine Color Urine Clarity Urine pH Ur Specific [place] Urine Protein Urine Glucose (UA) Urine Ketones Urine Occult Blood Urine Nitrite Urine Bilirubin Urine Urobilinogen Ur Leukocyte Esterase Urine RBC Urine WBC Ur Squamous Epith Cells Urine Bacteria Hyaline Casts Urine Mucus 02/10/21 02/10/21 02/10/21 18:00 19:05 19:05 WBC RBC Hgb Hct MCV MCH MCHC RDW Std Deviation RDW Coeff of Ash Plt Count MPV Immature Gran % (Auto) Neut % (Auto) Lymph % (Auto) [place]comb % (Auto) Eos % (Auto) Baso % (Auto) Absolute Neuts (auto) Absolute Lymphs (auto) Nucleated RBC % PT 14.2 INR 1.2 APTT 33.6 Sodium Potassium Chloride Carbon Dioxide Anion Gap BUN Creatinine Estim Creat Clear Calc Est GFR (MDRD) Af Amer Est GFR (MDRD) Non-Af BUN/Creatinine Ratio Glucose Lactic Acid Cancelled 1.7 Calcium Total Bilirubin AST ALT Alkaline Phosphatase Total Protein Albumin Globulin Albumin/Globulin Ratio Urine Color Urine Clarity Urine pH Ur Specific [place] Urine Protein Urine Glucose (UA) Urine Ketones Urine Occult Blood Urine Nitrite Urine Bilirubin Urine Urobilinogen Ur Leukocyte Esterase Urine RBC Urine WBC Ur Squamous Epith Cells Urine Bacteria Hyaline Casts Urine Mucus 02/10/21 21:12 WBC RBC Hgb Hct MCV MCH MCHC RDW Std Deviation RDW Coeff of Ash Plt Count MPV Immature Gran % (Auto) Neut % (Auto) Lymph % (Auto) [place] % (Auto) Eos % (Auto) Baso % (Auto) Absolute Neuts (auto) Absolute Lymphs (auto) Nucleated RBC % PT INR APTT Sodium Potassium Chloride Carbon Dioxide Anion Gap BUN Creatinine Estim Creat Clear Calc Est GFR (MDRD) Af Amer Est GFR (MDRD) Non-Af BUN/Creatinine Ratio Glucose Lactic Acid Calcium Total Bilirubin AST ALT Alkaline Phosphatase Total Protein Albumin Globulin Albumin/Globulin Ratio Urine Color Yellow Urine Clarity Cloudy Urine pH 9.0 Ur Specific [place] 1.015 Urine Protein 30 H Urine Glucose (UA) Normal Urine Ketones Negative Urine Occult Blood 50 H Urine Nitrite Positive H Urine Bilirubin Negative Urine Urobilinogen Normal Ur Leukocyte Esterase 500 H Urine RBC 0-5 SEEN Urine WBC 5-10 SEEN Ur Squamous Epith Cells 0 SEEN Urine Bacteria 4+ Hyaline Casts 0-5 SEEN Urine Mucus 0 SEEN Radiography Chest X-Ray - ED: 1 View, Read by ED Physician and Read by Radiologist Diagnostic Testing: Radiology Impression Chest X-Ray 02/10/21 17:44 IMPRESSION: No radiographic evidence of acute cardiopulmonary disease. at 1814 Reported and signed by: Fabrizio Ramirez MD Electronically Signed: Fabrizio Ramirez MD at 18:13 EDT Tel , Service support , Treatment and Re-Evaluation Comments:: Emergency department course: Patient was given 2 L of normal saline. She was given Dilaudid for pain. She actually insisted on this prior to being rolled to inspect her decubitus ulcer. She was given Zosyn and vancomycin IV. Treatment plan: Patient was discussed with Dr. Avalos. She'll be admitted to the hospital for further evaluation and treatment. Discharge Plan Triage Chief Complaint: Wound ED Provider: Giovanni Ahmadi Dx/Rx/DC Orders Clinical Impression: Decubitus ulcer, Diabetes mellitus type II Prescriptions: No Action atorvastatin 80 MG tablet 80 mg PO QHS RF: 0 omeprazole 20 MG capsule 20 mg PO DAILY RF: 0 metoprolol tartrate 25 MG tablet 25 mg PO BID RF: 0 tramadol 50 MG tablet 50 mg PO Q6H PRN PRN (Reason: Pain Score 4-10/10) RF: 0 ferrous sulfate 325 MG tablet 325 mg PO DAILY@0800 RF: 0 clopidogrel 75 MG tablet 75 mg PO DAILY RF: 0 sodium hypochlorite 1 APPLIC bottle 1 applic TOPICAL DAILY RF: 0 metformin 500 MG tablet 500 mg PO BIDCM RF: 0 lisinopril 20 MG tablet 20 mg PO DAILY RF: 0 diphenoxylate-atropine 1 EACH tablet 1 tablet PO BID PRN (Reason: Diarrhea) RF: 0 amitriptyline 50 MG tablet 50 mg PO QHS RF: 0 insulin aspart U-100 100 UNIT/ML solution 32 units SQ TIDCM RF: 0 hydrochlorothiazide 12.5 MG capsule 12.5 mg PO DAILY RF: 0 duloxetine 60 MG capsule,delayed release(DR/EC) 60 mg PO DAILY RF: 0 insulin glargine 100 UNITS/ML insulin pen 68 units SC QHS RF: 0 Primary Care Provider: Gera Snider III Referrals: Gera Snider III, MD [Primary Care Provider] -
[2021-02-10] MEDS: 0.9% Normal Saline 1,000 ML 999 ML IV (22:41)
--- NOTE | 2021-02-10 22:46 | HP.PCM.HOS_ITS ---
HPI - General General Date of Admission: 02/10/21 HPI Narrative [place] JIANG, is a 65 F with a significant history of colostomy; s/p CABG; sacral osteomyelitis; COPD; depression who presented to emergency department with increased drainage of wound. Home care follows up with patient's. Reportedly a day before presentation home care noticed that patient chronic wound has increased drainage. Dressing change was done. On the day of presentation home care realized that the drainage was even more excessive. Home care thought that the wound might be infected. Also patient's son who lives the patient cannot take care of a patient anymore. Further patient's home was in disarray and home care is recommended the patient be admitted for placement. At the emergency department patient was given IV Dilaudid and wound examined by emergent department doctor. At the time of my history taking patient declined further wound examination. However emergent department doctor reported to spot at patient sacrum; with erythema and so much drainage that it soaked an entire reynaldo . Of note patient has a chronic indwelling Guy catheter. Patient was admitted on 01 05 2021 and discharged on 01/07/2021 for acute metabolic/toxic encephalopathy; acute gabapentin overdose; and recent chronic Proteus infected stage IV recurrent sacral decubitus ulcer [facility] Medical History Anxiety Chest pain Chronic pain Chronic pain Colostomy in place Colostomy in place Congestive heart failure (CHF) COPD (chronic obstructive pulmonary disease) Coronary artery disease Depression Guy catheter in place Guy catheter in place GERD (gastroesophageal reflux disease) Hearing loss, left Hearing loss, right Hypertension Osteomyelitis due to secondary diabetes Past heart attack Sleep apnea Smoker Smoker Stroke/cerebrovascular accident Stroke/cerebrovascular accident TIA (transient ischemic attack) Vulva cancer Wound cellulitis after surgery Home Medications atorvastatin 80 mg PO QHS 03/24/15 [History Last Taken 01/04/21] metoprolol tartrate 25 mg PO BID 03/24/15 [History Last Taken 01/04/21] omeprazole 20 mg PO DAILY 03/24/15 [History Last Taken 01/04/21] tramadol 50 mg PO Q6H PRN PRN 12/25/17 [History Last Taken 01/04/21] ferrous sulfate 325 mg PO DAILY@0800 02/18/20 [History Last Taken 01/04/21] clopidogrel 75 mg PO DAILY 12/02/20 [History Last Taken 01/04/21] sodium hypochlorite 1 applic TOPICAL DAILY bottle 12/07/20 [Rx Last Taken 01/04/21] amitriptyline 50 mg PO QHS 01/05/21 [History Last Taken 01/04/21] diphenoxylate-atropine 1 tablet PO BID PRN 01/05/21 [History Last Taken 01/04/21] duloxetine 60 mg PO DAILY 01/05/21 [History Last Taken 01/04/21] hydrochlorothiazide 12.5 mg PO DAILY 01/05/21 [History Last Taken 01/04/21] insulin aspart U-100 32 units SQ TIDCM 01/05/21 [History Last Taken 01/04/21] insulin glargine 68 units SC QHS 01/05/21 [History Last Taken 01/04/21] lisinopril 20 mg PO DAILY 01/05/21 [History Last Taken 01/04/21] metformin 500 mg PO BIDCM 01/05/21 [History Last Taken 01/04/21] Allergy/AdvReac Type Severity Reaction Status Date / Time iodine Allergy Rash Verified 02/10/21 16:49 povidone-iodine Allergy Itching Verified 02/10/21 16:49 [From Betadine] prednisone Allergy tiny Verified 02/10/21 16:49 mouth ulcers Family History (Updated 02/10/21 @ 23:[address] Maurice Avalos MD) Other Cancer Diabetes Heart disease Surgical History H/O foot surgery History of cholecystectomy History of cholecystectomy History of heart artery stent Hx of CABG Hx of CABG (~01/2015) Previous back surgery Social History Smoking Status: Current every day smoker ROS ROS Narrative 12 point review of system is negative except as stated in HPI. Vital Signs Vital Signs Vital Signs: 02/10/21 16:50 02/10/21 16:54 02/10/21 17:54 Temperature 96.2 F L 96.2 F L 98 F Temperature Source Temporal Temporal Temporal Pulse Rate 79 79 79 Respiratory Rate 16 16 16 Blood Pressure 120/54 L 120/54 L 120/54 L Blood Pressure Mean 76 76 76 Pulse Ox 100 99 99 Oxygen Delivery Method Room Air Room Air Room Air 02/10/21 18:00 02/10/21 18:01 02/10/21 18:20 Temperature 98 F 98 F Temperature Source Temporal Temporal Pulse Rate 90 Respiratory Rate 18 Blood Pressure 125/45 H Blood Pressure Mean 71 Pulse Ox 98 Oxygen Delivery Method Room Air Room Air 02/10/21 21:16 02/10/21 22:19 Temperature 96.7 F L 96.9 F L Temperature Source Temporal Temporal Pulse Rate 96 101 H Respiratory Rate 23 H 10 L Blood Pressure 97/73 91/73 Blood Pressure Mean 81 79 Pulse Ox 96 96 Oxygen Delivery Method Room Air Room Air Physical Exam Narrative Alert and oriented x3; obese Nontraumatic; normocephalic Lung clear to auscultate Heart sounds S1-S2. No murmur, gallop or rubs. Abdomen bowel sounds present soft, nontender nondistended. Colostomy in place. : Guy catheter in place Extremity without edema cyanosis or clubbing. Integumentary: Patient declined examination of back. Lab / Micro Data Result Diagrams: 02/10/21 18:00 02/10/21 18:00 Labs: Laboratory Results - last 24 hr 02/10/21 02/10/21 02/10/21 18:00 18:00 18:00 WBC 10.2 RBC 4.74 Hgb 10.6 L Hct 35.1 L MCV 74.1 L MCH 22.4 L MCHC 30.2 L RDW Std Deviation 45.5 H RDW Coeff of Ash 16.9 H Plt Count 374 MPV 9.9 Immature Gran % (Auto) 0.300 Neut % (Auto) 73.3 H Lymph % (Auto) 17.7 L [place] % (Auto) 5.7 Eos % (Auto) 2.6 Baso % (Auto) 0.4 Absolute Neuts (auto) 7.5 Absolute Lymphs (auto) 1.80 Nucleated RBC % 0 PT Cancelled INR Cancelled APTT Cancelled Sodium 132 L Potassium 3.7 Chloride 102 Carbon Dioxide 22.0 Anion Gap 8 BUN 31 H Creatinine 0.74 Estim Creat Clear Calc 49.80 Est GFR (MDRD) Af Amer 101 Est GFR (MDRD) Non-Af 83 BUN/Creatinine Ratio 41.8 H Glucose 79 Lactic Acid Calcium 7.5 L Total Bilirubin 0.30 AST 20 ALT 15 Alkaline Phosphatase 97 Total Protein 8.4 H Albumin 2.3 L Globulin 6.1 H Albumin/Globulin Ratio 0.4 L Urine Color Urine Clarity Urine pH Ur Specific [place] Urine Protein Urine Glucose (UA) Urine Ketones Urine Occult Blood Urine Nitrite Urine Bilirubin Urine Urobilinogen Ur Leukocyte Esterase Urine RBC Urine WBC Ur Squamous Epith Cells Urine Bacteria Hyaline Casts Urine Mucus 02/10/21 02/10/21 02/10/21 18:00 19:05 19:05 WBC RBC Hgb Hct MCV MCH MCHC RDW Std Deviation RDW Coeff of Ash Plt Count MPV Immature Gran % (Auto) Neut % (Auto) Lymph % (Auto) [place] % (Auto) Eos % (Auto) Baso % (Auto) Absolute Neuts (auto) Absolute Lymphs (auto) Nucleated RBC % PT 14.2 INR 1.2 APTT 33.6 Sodium Potassium Chloride Carbon Dioxide Anion Gap BUN Creatinine Estim Creat Clear Calc Est GFR (MDRD) Af Amer Est GFR (MDRD) Non-Af BUN/Creatinine Ratio Glucose Lactic Acid Cancelled 1.7 Calcium Total Bilirubin AST ALT Alkaline Phosphatase Total Protein Albumin Globulin Albumin/Globulin Ratio Urine Color Urine Clarity Urine pH Ur Specific [place] Urine Protein Urine Glucose (UA) Urine Ketones Urine Occult Blood Urine Nitrite Urine Bilirubin Urine Urobilinogen Ur Leukocyte Esterase Urine RBC Urine WBC Ur Squamous Epith Cells Urine Bacteria Hyaline Casts Urine Mucus 02/10/21 21:12 WBC RBC Hgb Hct MCV MCH MCHC RDW Std Deviation RDW Coeff of Ash Plt Count MPV Immature Gran % (Auto) Neut % (Auto) Lymph % (Auto) [place] % (Auto) Eos % (Auto) Baso % (Auto) Absolute Neuts (auto) Absolute Lymphs (auto) Nucleated RBC % PT INR APTT Sodium Potassium Chloride Carbon Dioxide Anion Gap BUN Creatinine Estim Creat Clear Calc Est GFR (MDRD) Af Amer Est GFR (MDRD) Non-Af BUN/Creatinine Ratio Glucose Lactic Acid Calcium Total Bilirubin AST ALT Alkaline Phosphatase Total Protein Albumin Globulin Albumin/Globulin Ratio Urine Color Yellow Urine Clarity Cloudy Urine pH 9.0 Ur Specific [place] 1.015 Urine Protein 30 H Urine Glucose (UA) Normal Urine Ketones Negative Urine Occult Blood 50 H Urine Nitrite Positive H Urine Bilirubin Negative Urine Urobilinogen Normal Ur Leukocyte Esterase 500 H Urine RBC 0-5 SEEN Urine WBC 5-10 SEEN Ur Squamous Epith Cells 0 SEEN Urine Bacteria 4+ Hyaline Casts 0-5 SEEN Urine Mucus 0 SEEN Radiology Impression Chest X-Ray 02/10/21 17:44 IMPRESSION: No radiographic evidence of acute cardiopulmonary disease. at 1814 Reported and signed by: Fabrizio Ramirez MD Electronically Signed: Fabrizio Ramirez MD at 18:13 EDT Tel , Service support , Assessment & Plan Assessment/Plan (1) Infected stage IV decubitus ulcer: PLAN: Old records reviewed showed sacral abscess with Pseudomonas aeroginosa and Proteus mirabilis. Received vancomycin and Zosyn at the emergency department. In the past patient had received Invanz and Zosyn. Vancomycin and Zosyn ordered inpatient. In the past patient has follow-up with Dr. Mack and Dr. Gatica. Will consult Dr. Gatica. Review of emergency department labs showed normal white counts. Home tramadol continued. As needed morphine IV ordered. Trend CBC and BMP. (2) Diabetes mellitus type II: PLAN: Blood glucose at the emergent department was low normal. Hold home basal and prandial insulin. (3) Tobacco abuse: PLAN: Smokes about half pack per day. Counseled. Declined nicotine patch/nicotine gum (4) Failure to thrive in adult: PLAN: Case management consult for possible placement. (5) Obesity: QUALIFIERS: Body mass index: BMI 40.0-44.9 Obesity classification: adult class 3 (BMI >= 40) Obesity type: due to excess calories Serious obesity comorbidity presence: with serious comorbidity Qualified Code(s): E66.01 - Morbid (severe) obesity due to excess calories; Z68.41 - Body mass index [BMI]40.0-44.9, adult PLAN: BMI of 42 kg meter square. Complicates care. Lifestyle modification recommended. (6) Abnormal urinalysis: PLAN: Review of me department labs showed abnormal urinalysis. Patient with chronic Guy. No indication for active infection. Zosyn as above (7) Coronary artery disease: PLAN: Stable. Plavix continued. Lisinopril metoprolol held secondary to low normal blood pressure. Trend blood pressure DVT prophylaxis: SCD ordered Visit Charges Inpatient E&M: 37170 Init Hosp L3
[2021-02-11 00:13] VITALS: BP 128/77; PULSE 102; RESP 16; TEMP 36.6; O2SAT 100
[2021-02-11 00:21] LABS: Bedside Glucose 142 mg/dL (70-110)
[2021-02-11] MEDS: Morphine 4 MG/ML Syringe IV ×5 (00:27→21:27)
[2021-02-11] MEDS: 0.9% Saline Lock 10 ML Syringe IV ×5 (00:27→17:14)
[2021-02-11 02:01] VITALS: BMI 42.2
--- NOTE | 2021-02-11 04:19 | PCM.RX.CS ---
Consult Pharmacy has been consulted to manage selected antiobiotic: Vancomycin Type of Consult: New start Labs: Sodium 132 mmol/L (136-145) L 02/10/21 18:00 Potassium 3.7 mmol/L (3.5-5.1) 02/10/21 18:00 Chloride 102 mmol/L (98-107) 02/10/21 18:00 Carbon Dioxide 22.0 mmol/L (21.0-32.0) 02/10/21 18:00 Anion Gap 8 (5-15) 02/10/21 18:00 BUN 31 mg/dL (7-18) H 02/10/21 18:00 Creatinine 0.74 mg/dL (0.55-1.02) 02/10/21 18:00 Est GFR (MDRD) Af Amer 101 mL/min (>60) 02/10/21 18:00 Est GFR (MDRD) Non-Af 83 mL/min (>60) 02/10/21 18:00 BUN/Creatinine Ratio 41.8 RATIO (10-20) H 02/10/21 18:00 Glucose 79 mg/dL (74-106) 02/10/21 18:00 Weight used for dosin kg Estimated Creatinine Clearance: 94.7 Goal Trough: 15-20 mcg/mL Pharmacy Plan for Drug Dosing: Pharmacy Service will continue to monitor and adjust dosing as required. Medications Vancomycin HCl 1,250 mg/ (Sodium Chloride) 275 mls @ 167 mls/hr IV Q8H CRISTO Discontinued Medications Vancomycin HCl 1,750 mg/ (Sodium Chloride) 535 mls @ 250 mls/hr IV X1 ONE Stop: 02/11/21 00:33 Last Admin: 02/11/21 03:13 Dose: Infused Documented by: Follow-Up Labs: Trough Vancomycin Labs to be done on [date and time ordered]: 02/11 @ 2484
[2021-02-11 06:21] VITALS: BP 103/48; PULSE 97; RESP 14; TEMP 36.8; O2SAT 99
[2021-02-11 06:36] LABS: Bedside Glucose 142 mg/dL (70-110)
[2021-02-11 08:08] VITALS: BP 107/60; PULSE 100; RESP 18; TEMP 36.9; O2SAT 100
--- NOTE | 2021-02-11 09:10 | NURSING ---
wound photo: sacrum/right buttock
[2021-02-11] MEDS: Enoxaparin 40 MG/0.4 ML Syringe SC ×2 (09:19→21:05)
[2021-02-11] MEDS: traMADol 50 MG Tablet PO (09:19)
[2021-02-11] MEDS: Glucerna Shake 120 ML LIQUID PO ×2 (09:19→17:15)
[2021-02-11] MEDS: Nystatin Powder 15gm Bottle 1 APPLIC TOPICAL ×2 (09:20→21:07)
[2021-02-11] MEDS: Ferrous Sulfate 325 MG Tablet PO (09:20)
[2021-02-11] MEDS: Pantoprazole Sodium 20 MG Tablet PO (09:20)
[2021-02-11] MEDS: DULoxetine Hcl 60 MG Capsule PO (09:20)
[2021-02-11 09:36] LABS: Bedside Glucose 167 mg/dL (70-110)
--- NOTE | 2021-02-11 10:17 | CASEMGMT ---
Social Work Note SW received consult for SNF placement. SW in to speak with pt. SW introduced self and role at [facility]. Pt is alert and orientated. Pt confirms she is agreeable to SNF if she doesn't have a patient liability. Pt states if she has a patient liability she is not going to a SNF. Patient was provided a list of SNF providers including quality and resource use data and consistent with the patient?s preferred geographic region, medical needs, and insurance network. Pt states first choice is [facility] and second choice is [facility]. SW explained referral process. SW to fax referral once PT/OT works with pt. Kassie Larios [employer] ?
[2021-02-11] MEDS: Aspirin 81 MG TAB.CHEW PO (10:37)
[2021-02-11] MEDS: Clopidogrel Bisulfate 75 MG Tablet PO (10:37)
--- NOTE | 2021-02-11 12:17 | PN.HOSP_ITS ---
Subjective Subjective: Patient evaluated. She was complaining of burning at the site of her IV line. Pain at the site of her decubitus ulcer is well controlled. She denies any fever, any chills, any nausea vomiting or diarrhea. Review of systems otherwise negative. Objective Data Objective Data Vital Signs: Vital Signs Temp Pulse Resp BP Pulse Ox 98.4 F 100 18 107/60 100 02/11/21 08:08 02/11/21 08:08 02/11/21 08:08 02/11/21 08:08 02/11/21 08:08 Oxygen Delivery Method Room Air Weight: 253 lb 8.505 oz Body Mass Index (BMI) 42.2 Finger Stick Blood Glucose 111 Intake & Output: Intake and Output for Last 24 Hours 02/09/21 02/10/21 02/11/21 23:59 23:59 23:59 Intake Total 1100 / 1100 893.53 / 893.53 Output Total 125 / 125 Balance 1100 / 1100 768.53 / 768.53 Lab / Micro Data Result Diagrams: 02/10/21 18:00 02/10/21 18:00 Labs: Laboratory Results - last 24 hr 02/10/21 02/10/21 02/10/21 18:00 18:00 18:00 WBC 10.2 RBC 4.74 Hgb 10.6 L Hct 35.1 L MCV 74.1 L MCH 22.4 L MCHC 30.2 L RDW Std Deviation 45.5 H RDW Coeff of Ash 16.9 H Plt Count 374 MPV 9.9 Immature Gran % (Auto) 0.300 Neut % (Auto) 73.3 H Lymph % (Auto) 17.7 L [place] % (Auto) 5.7 Eos % (Auto) 2.6 Baso % (Auto) 0.4 Absolute Neuts (auto) 7.5 Absolute Lymphs (auto) 1.80 Nucleated RBC % 0 PT Cancelled INR Cancelled APTT Cancelled Sodium 132 L Potassium 3.7 Chloride 102 Carbon Dioxide 22.0 Anion Gap 8 BUN 31 H Creatinine 0.74 Estim Creat Clear Calc 49.80 Est GFR (MDRD) Af Amer 101 Est GFR (MDRD) Non-Af 83 BUN/Creatinine Ratio 41.8 H Glucose 79 Lactic Acid Calcium 7.5 L Total Bilirubin 0.30 AST 20 ALT 15 Alkaline Phosphatase 97 Total Protein 8.4 H Albumin 2.3 L Globulin 6.1 H Albumin/Globulin Ratio 0.4 L Urine Color Urine Clarity Urine pH Ur Specific [place] Urine Protein Urine Glucose (UA) Urine Ketones Urine Occult Blood Urine Nitrite Urine Bilirubin Urine Urobilinogen Ur Leukocyte Esterase Urine RBC Urine WBC Ur Squamous Epith Cells Urine Bacteria Hyaline Casts Urine Mucus POC Glucose 02/10/21 02/10/21 02/10/21 18:00 19:05 19:05 WBC RBC Hgb Hct MCV MCH MCHC RDW Std Deviation RDW Coeff of Ash Plt Count MPV Immature Gran % (Auto) Neut % (Auto) Lymph % (Auto) [place] % (Auto) Eos % (Auto) Baso % (Auto) Absolute Neuts (auto) Absolute Lymphs (auto) Nucleated RBC % PT 14.2 INR 1.2 APTT 33.6 Sodium Potassium Chloride Carbon Dioxide Anion Gap BUN Creatinine Estim Creat Clear Calc Est GFR (MDRD) Af Amer Est GFR (MDRD) Non-Af BUN/Creatinine Ratio Glucose Lactic Acid Cancelled 1.7 Calcium Total Bilirubin AST ALT Alkaline Phosphatase Total Protein Albumin Globulin Albumin/Globulin Ratio Urine Color Urine Clarity Urine pH Ur Specific [place] Urine Protein Urine Glucose (UA) Urine Ketones Urine Occult Blood Urine Nitrite Urine Bilirubin Urine Urobilinogen Ur Leukocyte Esterase Urine RBC Urine WBC Ur Squamous Epith Cells Urine Bacteria Hyaline Casts Urine Mucus POC Glucose 02/10/21 02/11/21 02/11/21 21:12 00:15 04:27 WBC RBC Hgb Hct MCV MCH MCHC RDW Std Deviation RDW Coeff of Ash Plt Count MPV Immature Gran % (Auto) Neut % (Auto) Lymph % (Auto) [place] % (Auto) Eos % (Auto) Baso % (Auto) Absolute Neuts (auto) Absolute Lymphs (auto) Nucleated RBC % PT INR APTT Sodium Potassium Chloride Carbon Dioxide Anion Gap BUN Creatinine Estim Creat Clear Calc Est GFR (MDRD) Af Amer Est GFR (MDRD) Non-Af BUN/Creatinine Ratio Glucose Lactic Acid Calcium Total Bilirubin AST ALT Alkaline Phosphatase Total Protein Albumin Globulin Albumin/Globulin Ratio Urine Color Yellow Urine Clarity Cloudy Urine pH 9.0 Ur Specific [place] 1.015 Urine Protein 30 H Urine Glucose (UA) Normal Urine Ketones Negative Urine Occult Blood 50 H Urine Nitrite Positive H Urine Bilirubin Negative Urine Urobilinogen Normal Ur Leukocyte Esterase 500 H Urine RBC 0-5 SEEN Urine WBC 5-10 SEEN Ur Squamous Epith Cells 0 SEEN Urine Bacteria 4+ Hyaline Casts 0-5 SEEN Urine Mucus 0 SEEN POC Glucose 142 H 142 H 02/11/21 09:33 WBC RBC Hgb Hct MCV MCH MCHC RDW Std Deviation RDW Coeff of Ash Plt Count MPV Immature Gran % (Auto) Neut % (Auto) Lymph % (Auto) [place] % (Auto) Eos % (Auto) Baso % (Auto) Absolute Neuts (auto) Absolute Lymphs (auto) Nucleated RBC % PT INR APTT Sodium Potassium Chloride Carbon Dioxide Anion Gap BUN Creatinine Estim Creat Clear Calc Est GFR (MDRD) Af Amer Est GFR (MDRD) Non-Af BUN/Creatinine Ratio Glucose Lactic Acid Calcium Total Bilirubin AST ALT Alkaline Phosphatase Total Protein Albumin Globulin Albumin/Globulin Ratio Urine Color Urine Clarity Urine pH Ur Specific [place] Urine Protein Urine Glucose (UA) Urine Ketones Urine Occult Blood Urine Nitrite Urine Bilirubin Urine Urobilinogen Ur Leukocyte Esterase Urine RBC Urine WBC Ur Squamous Epith Cells Urine Bacteria Hyaline Casts Urine Mucus POC Glucose 167 H Radiography Diagnostic Testing: Radiology Impression Chest X-Ray 02/10/21 17:44 IMPRESSION: No radiographic evidence of acute cardiopulmonary disease. at 1814 Reported and signed by: Fabrizio Ramirez MD Electronically Signed: Fabrizio Ramirez MD at 18:13 EDT Tel , Service support , Physical Exam Const alert, oriented x3 and no apparent distress Exam Limitations: no limitations Nutritional Appearance: overweight and obese HEENT head/scalp atraumatic Head and Scalp: normocephalic Eyes PERRL, EOMs intact bilaterally and conjunctivae normal Neck no lymphadenopathy, supple and no JVD Resp normal respiratory effort, no retractions, no use of accessory muscles and clear to auscultation bilaterally Cardio regular rate, regular rhythm, S1 normal heart sound and S2 normal heart sound GI normal to inspection, nondistended, normoactive bowel sounds, soft to palpation, non-tender and non-distended Extremity normal to inspection, full ROM and no clubbing, cyanosis or edema Skin Skin Narrative: has a stage 3 decubitus ulcer on the buttock, with mild slough in the floor. Neuro oriented x3 and CN's II-XII intact bilaterally Sensorium / Orientation: awake Psych affect normal Assessment & Plan Assessment/Plan (1) Infected stage IV decubitus ulcer: (2) Acute on chronic anemia: (3) Obesity: QUALIFIERS: Obesity type: due to excess calories Obesity classification: adult class 3 (BMI >= 40) Serious obesity comorbidity presence: with serious comorbidity Body mass index: BMI 40.0-44.9 Qualified Code(s): E66.01 - Morbid (severe) obesity due to excess calories; Z68.41 - Body mass index [BMI]40.0-44.9, adult (4) Dyslipidemia: (5) Depression: (6) COPD (chronic obstructive pulmonary disease): PLAN: #Infected sacral decubitus ulcer * wound care on board * on IV vancomycin and zosyn. 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 * wound cultures ordered. * previous wound culutres grew Pseudomonas aeruginosa and Proteus mirabilis. * #Type 2 diabetes mellitus with neuropathy * on lantus 68 units QHS * ISS. Accuchecks ACHS. * also on metformin. * #Hypertension: on metoprolol and HCTZ #History of CAD: on aspirin and plavix as well as statin. DVT prophylaxis: lovenox Disposition: Patient lives with her son who is unable to adequately care for her anymore. She is open to placement. Case management on board. Visit Charges Inpatient E&M: 95406 Subs Hosp L2
[2021-02-11 12:28] VITALS: BP 138/45; PULSE 108; RESP 18; TEMP 37.1; O2SAT 97
--- NOTE | 2021-02-11 13:18 | NURSING ---
Pt refused q4h accucheck at this time
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
[2021-02-11] MEDS: 0.9% Normal Saline 1,000 ML 75 ML IV (14:02)
[2021-02-11 14:10] LABS: M R Staph aureus DNA By PCR Negative (Negative); Probe Check PASS; Specimen Processing Control PASS; Staph aureus DNA By PCR NEGATIVE (Negative)
--- NOTE | 2021-02-11 14:11 | CON.PCM.ID_ITS ---
Assessment & Plan Assessment/Plan (1) Infected stage IV decubitus ulcer: PLAN: On vanc/zosyn. Wound cx pending. Last CT pelvis over a month ago. May benefit from repeat imaging or plastic surgery eval. Will order picc. Will follow, thank you HPI Consult Data Date of Consult: 02/11/21 HPI Narrative HPI Narrative: [place] JIANG, is a 65 F who presented with increased sacral drainage, erythema. Has home health. No fever, has completed covid series. Recent abx without improvement. Came to ED, cx sent, started on vanc/zosyn. Full ROS performed and neg except as noted above. [facility] Medical History Anxiety Chest pain Chronic pain Colostomy in place Congestive heart failure (CHF) COPD (chronic obstructive pulmonary disease) Coronary artery disease Depression Guy catheter in place GERD (gastroesophageal reflux disease) Hearing loss, left Hearing loss, right Hypertension Osteomyelitis due to secondary diabetes Past heart attack Sleep apnea Smoker Smoker Stroke/cerebrovascular accident Stroke/cerebrovascular accident TIA (transient ischemic attack) Vulva cancer Wound cellulitis after surgery Home Medications atorvastatin 80 mg PO QHS 03/24/15 [History Last Taken 02/09/21] metoprolol tartrate 25 mg PO BID 03/24/15 [History Last Taken 02/10/21] omeprazole 20 mg PO DAILY 03/24/15 [History Last Taken 02/10/21] tramadol 50 mg PO Q6H PRN PRN 12/25/17 [History Last Taken 02/10/21] ferrous sulfate 325 mg PO DAILY@0800 02/18/20 [History Last Taken 02/10/21] clopidogrel 75 mg PO DAILY 12/02/20 [History Last Taken 02/10/21] sodium hypochlorite 1 applic TOPICAL DAILY bottle 12/07/20 [Rx Last Taken 02/10/21] amitriptyline 50 mg PO QHS 01/05/21 [History Last Taken 02/09/21] diphenoxylate-atropine 1 tablet PO BID PRN 01/05/21 [History Last Taken 01/04/21] duloxetine 60 mg PO DAILY 01/05/21 [History Last Taken 02/10/21] hydrochlorothiazide 12.5 mg PO DAILY 01/05/21 [History Last Taken 02/10/21] insulin aspart U-100 32 units SQ TIDCM 01/05/21 [History Last Taken 02/10/21] insulin glargine 70 units SC QHS 01/05/21 [History Last Taken 02/09/21] lisinopril 20 mg PO DAILY 01/05/21 [History Last Taken 02/10/21] metformin 500 mg PO BIDCM 01/05/21 [History Last Taken 02/10/21] aspirin 81 mg PO DAILY 02/11/21 [History Last Taken 02/10/21] Allergy/AdvReac Type Severity Reaction Status Date / Time iodine Allergy Rash Verified 02/10/21 16:49 povidone-iodine Allergy Itching Verified 02/10/21 16:49 [From Betadine] prednisone Allergy tiny Verified 02/10/21 16:49 mouth ulcers Family History (Updated 02/10/21 @ 23:[address] Maurice Avalos MD) Other Cancer Diabetes Heart disease Surgical History (Updated 02/11/21 @ 00:25 by Neville Weaver) H/O foot surgery History of cholecystectomy History of cholecystectomy Hx of CABG Hx of CABG (~01/2015) Previous back surgery Social History Smoking Status: Current every day smoker Physical Exam Const alert and oriented x3 General Appearance: cooperative HEENT normocephalic and head/scalp atraumatic Eyes PERRL and EOMs intact bilaterally Neck supple and No nodes Resp clear to auscultation bilaterally Cardio regular rate and regular rhythm GI normal to inspection, nondistended, normoactive bowel sounds GI Narrative: ostomy in place Extremity General Extremity: edema Skin Skin Narrative: reviewed wound photo Neuro CN's II-XII intact bilaterally Lab / Micro Data Result Diagrams: 02/10/21 18:00 02/10/21 18:00 Labs: Laboratory Results - last 24 hr 02/10/21 02/10/21 02/10/21 18:00 18:00 18:00 WBC 10.2 RBC 4.74 Hgb 10.6 L Hct 35.1 L MCV 74.1 L MCH 22.4 L MCHC 30.2 L RDW Std Deviation 45.5 H RDW Coeff of Ash 16.9 H Plt Count 374 MPV 9.9 Immature Gran % (Auto) 0.300 Neut % (Auto) 73.3 H Lymph % (Auto) 17.7 L [place] % (Auto) 5.7 Eos % (Auto) 2.6 Baso % (Auto) 0.4 Absolute Neuts (auto) 7.5 Absolute Lymphs (auto) 1.80 Nucleated RBC % 0 PT Cancelled INR Cancelled APTT Cancelled Sodium 132 L Potassium 3.7 Chloride 102 Carbon Dioxide 22.0 Anion Gap 8 BUN 31 H Creatinine 0.74 Estim Creat Clear Calc 49.80 Est GFR (MDRD) Af Amer 101 Est GFR (MDRD) Non-Af 83 BUN/Creatinine Ratio 41.8 H Glucose 79 Lactic Acid Calcium 7.5 L Total Bilirubin 0.30 AST 20 ALT 15 Alkaline Phosphatase 97 Total Protein 8.4 H Albumin 2.3 L Globulin 6.1 H Albumin/Globulin Ratio 0.4 L Urine Color Urine Clarity Urine pH Ur Specific [place] Urine Protein Urine Glucose (UA) Urine Ketones Urine Occult Blood Urine Nitrite Urine Bilirubin Urine Urobilinogen Ur Leukocyte Esterase Urine RBC Urine WBC Ur Squamous Epith Cells Urine Bacteria Hyaline Casts Urine Mucus S.aureus Protein A PCR MRSA (PCR) POC Glucose 02/10/21 02/10/21 02/10/21 18:00 19:05 19:05 WBC RBC Hgb Hct MCV MCH MCHC RDW Std Deviation RDW Coeff of Ash Plt Count MPV Immature Gran % (Auto) Neut % (Auto) Lymph % (Auto) [place] % (Auto) Eos % (Auto) Baso % (Auto) Absolute Neuts (auto) Absolute Lymphs (auto) Nucleated RBC % PT 14.2 INR 1.2 APTT 33.6 Sodium Potassium Chloride Carbon Dioxide Anion Gap BUN Creatinine Estim Creat Clear Calc Est GFR (MDRD) Af Amer Est GFR (MDRD) Non-Af BUN/Creatinine Ratio Glucose Lactic Acid Cancelled 1.7 Calcium Total Bilirubin AST ALT Alkaline Phosphatase Total Protein Albumin Globulin Albumin/Globulin Ratio Urine Color Urine Clarity Urine pH Ur Specific [place] Urine Protein Urine Glucose (UA) Urine Ketones Urine Occult Blood Urine Nitrite Urine Bilirubin Urine Urobilinogen Ur Leukocyte Esterase Urine RBC Urine WBC Ur Squamous Epith Cells Urine Bacteria Hyaline Casts Urine Mucus S.aureus Protein A PCR MRSA (PCR) POC Glucose 02/10/21 02/11/21 02/11/21 21:12 00:15 04:27 WBC RBC Hgb Hct MCV MCH MCHC RDW Std Deviation RDW Coeff of Ash Plt Count MPV Immature Gran % (Auto) Neut % (Auto) Lymph % (Auto) [place] % (Auto) Eos % (Auto) Baso % (Auto) Absolute Neuts (auto) Absolute Lymphs (auto) Nucleated RBC % PT INR APTT Sodium Potassium Chloride Carbon Dioxide Anion Gap BUN Creatinine Estim Creat Clear Calc Est GFR (MDRD) Af Amer Est GFR (MDRD) Non-Af BUN/Creatinine Ratio Glucose Lactic Acid Calcium Total Bilirubin AST ALT Alkaline Phosphatase Total Protein Albumin Globulin Albumin/Globulin Ratio Urine Color Yellow Urine Clarity Cloudy Urine pH 9.0 Ur Specific [place] 1.015 Urine Protein 30 H Urine Glucose (UA) Normal Urine Ketones Negative Urine Occult Blood 50 H Urine Nitrite Positive H Urine Bilirubin Negative Urine Urobilinogen Normal Ur Leukocyte Esterase 500 H Urine RBC 0-5 SEEN Urine WBC 5-10 SEEN Ur Squamous Epith Cells 0 SEEN Urine Bacteria 4+ Hyaline Casts 0-5 SEEN Urine Mucus 0 SEEN S.aureus Protein A PCR MRSA (PCR) POC Glucose 142 H 142 H 02/11/21 02/11/21 08:20 09:33 WBC RBC Hgb Hct MCV MCH MCHC RDW Std Deviation RDW Coeff of Ash Plt Count MPV Immature Gran % (Auto) Neut % (Auto) Lymph % (Auto) [place] % (Auto) Eos % (Auto) Baso % (Auto) Absolute Neuts (auto) Absolute Lymphs (auto) Nucleated RBC % PT INR APTT Sodium Potassium Chloride Carbon Dioxide Anion Gap BUN Creatinine Estim Creat Clear Calc Est GFR (MDRD) Af Amer Est GFR (MDRD) Non-Af BUN/Creatinine Ratio Glucose Lactic Acid Calcium Total Bilirubin AST ALT Alkaline Phosphatase Total Protein Albumin Globulin Albumin/Globulin Ratio Urine Color Urine Clarity Urine pH Ur Specific [place] Urine Protein Urine Glucose (UA) Urine Ketones Urine Occult Blood Urine Nitrite Urine Bilirubin Urine Urobilinogen Ur Leukocyte Esterase Urine RBC Urine WBC Ur Squamous Epith Cells Urine Bacteria Hyaline Casts Urine Mucus S.aureus Protein A PCR NEGATIVE MRSA (PCR) Negative POC Glucose 167 H Micro: Microbiology 02/10/21 21:12 Urine Culture - Preliminary Urine, Clean Catch Gram negative [place] Radiology Impression Chest X-Ray 02/10/21 17:44 IMPRESSION: No radiographic evidence of acute cardiopulmonary disease. at 1814 Reported and signed by: Fabrizio Ramirez MD Electronically Signed: Fabrizio Ramirez MD at 18:13 EDT Tel , Service support ,
--- NOTE | 2021-02-11 14:54 | NURSING ---
Elke at [facility] made aware or PICC order. [facility] will call unit with approximate time for procedure.
[2021-02-11] MEDS: DAKIN'S SOL HALF STRENGTH (=0.25%) 1 APPLIC TOPICAL ×2 (17:00→21:05)
[2021-02-11 17:19] VITALS: BP 125/64; PULSE 101; RESP 18; TEMP 36.7; O2SAT 97
[2021-02-11 17:21] LABS: Bedside Glucose 225 mg/dL (70-110)
[2021-02-11] MEDS: Insulin Lispro 100 UNIT/ML INSULN.PEN 32 UNIT SC (18:13)
[2021-02-11] MEDS: Menthol/Lanolin/Calamine/Znox 113 GM Tube 1 APPLIC TOPICAL (21:05)
[2021-02-11] MEDS: Amitriptyline 25 MG Tablet 50 MG PO (21:06)
[2021-02-11] MEDS: Atorvastatin Calcium 80 MG Tablet PO (21:06)
[2021-02-11 21:21] LABS: Bedside Glucose 139 mg/dL (70-110)
[2021-02-11 21:33] VITALS: BP 132/56; PULSE 95; RESP 18; TEMP 37.1; O2SAT 98
--- NOTE | 2021-02-11 23:30 | PCM.RX.CS ---
Consult Pharmacy has been consulted to manage selected antiobiotic: Vancomycin Type of Consult: Follow-up Labs: Sodium 132 mmol/L (136-145) L 02/10/21 18:00 Potassium 3.7 mmol/L (3.5-5.1) 02/10/21 18:00 Chloride 102 mmol/L (98-107) 02/10/21 18:00 Carbon Dioxide 22.0 mmol/L (21.0-32.0) 02/10/21 18:00 Anion Gap 8 (5-15) 02/10/21 18:00 BUN 31 mg/dL (7-18) H 02/10/21 18:00 Creatinine 0.74 mg/dL (0.55-1.02) 02/10/21 18:00 Est GFR (MDRD) Af Amer 101 mL/min (>60) 02/10/21 18:00 Est GFR (MDRD) Non-Af 83 mL/min (>60) 02/10/21 18:00 BUN/Creatinine Ratio 41.8 RATIO (10-20) H 02/10/21 18:00 Glucose 79 mg/dL (74-106) 02/10/21 18:00 Microbiology: Microbiology 02/11/21 08:20 Wound - Sacral Gram Stain - Final 02/10/21 21:12 Urine, Clean Catch Urine Culture - Preliminary Gram negative [place] Pharmacy Plan for Drug Dosing: Pharmacy Service will continue to monitor and adjust dosing as required. LAST DOSE HUNG LATE, RETIME TROUGH FOR TOMORROW MORNING Follow-Up Labs: Trough Vancomycin Labs to be done on [date and time ordered]: 02/13 @ 0639
--- NOTE | 2021-02-12 01:51 | NURSING ---
04/13/212134 Pt. stated she did not understand why this RN needed to turn her and assess her DSG and listen to posterior lung sounds. This RN explained it's part of our head to toe assessment and wanted to ensure the DSG was dry and intact since this is what brought the patient to the hospital. After much deliberation, the pt. consented but stated Fine, but I do not want to be bothered the rest of the night with turning. Pt. still declined after providing patient teaching. Will continue to monitor.
[2021-02-12 02:42] VITALS: BP 118/50; PULSE 101; RESP 18; TEMP 36.7; O2SAT 96
[2021-02-12] MEDS: Menthol/Lanolin/Calamine/Znox 113 GM Tube 1 APPLIC TOPICAL ×3 (05:30→22:48)
[2021-02-12 08:01] LABS: Bedside Glucose 232 mg/dL (70-110)
[2021-02-12] MEDS: Ferrous Sulfate 325 MG Tablet PO (08:23)
[2021-02-12] MEDS: Insulin Lispro 100 UNIT/ML INSULN.PEN 32 UNIT SC ×3 (08:23→18:03)
[2021-02-12] MEDS: Aspirin 81 MG TAB.CHEW PO (08:23)
[2021-02-12 08:30] VITALS: BP 140/48; PULSE 103; RESP 18; TEMP 36.6; O2SAT 95
[2021-02-12] MEDS: Enoxaparin 40 MG/0.4 ML Syringe SC ×2 (11:17→23:13)
[2021-02-12] MEDS: DULoxetine Hcl 60 MG Capsule PO (11:17)
[2021-02-12] MEDS: DAKIN'S SOL HALF STRENGTH (=0.25%) 1 APPLIC TOPICAL ×2 (11:18→22:45)
[2021-02-12] MEDS: Nystatin Powder 15gm Bottle 1 APPLIC TOPICAL ×2 (11:18→23:10)
[2021-02-12] MEDS: Pantoprazole Sodium 20 MG Tablet PO (11:19)
[2021-02-12] MEDS: Clopidogrel Bisulfate 75 MG Tablet PO (11:19)
[2021-02-12 11:20] VITALS: PULSE 100
[2021-02-12 11:50] LABS: Bedside Glucose 182 mg/dL (70-110)
--- NOTE | 2021-02-12 11:53 | PN.HOSP_ITS ---
Subjective Subjective: Patient seen and examined. She complains that the pain at the site of her decubitus ulcer is 8 out of 10. She would prefer to have IV Dilaudid instead of IV morphine for pain and also for dressing change. Review of stents otherwise negative. She has remained hemodynamically stable. Objective Data Objective Data Vital Signs: Vital Signs Temp Pulse Resp BP Pulse Ox 97.9 F 103 H 18 140/48 H 95 02/12/21 08:30 02/12/21 08:30 02/12/21 08:30 02/12/21 08:30 02/12/21 08:30 Oxygen Delivery Method Room Air Weight: 253 lb 8.505 oz Body Mass Index (BMI) 42.2 Finger Stick Blood Glucose 111 Intake & Output: Intake and Output for Last 24 Hours 02/10/21 02/11/21 02/12/21 23:59 23:59 23:59 Intake Total 1100 / 1100 2417.25 / 2417.25 1845.50 / 1845.50 Output Total 375 / 375 800 / 800 Balance 1100 / 1100 2042.25 / 2042.25 1045.50 / 1045.50 Lab / Micro Data Result Diagrams: 02/10/21 18:00 02/10/21 18:00 Labs: Laboratory Results - last 24 hr 02/11/21 02/11/21 02/11/21 08:20 17:15 21:11 Vancomycin Trough S.aureus Protein A PCR NEGATIVE MRSA (PCR) Negative POC Glucose 225 H 139 H 02/11/21 02/12/21 02/12/21 23:30 07:54 11:45 Vancomycin Trough Cancelled S.aureus Protein A PCR MRSA (PCR) POC Glucose 232 H 182 H Micro: Microbiology 02/10/21 21:12 Urine, Clean Catch Urine Culture - Final Mixed Gram Pos & Gram Neg Org 02/11/21 08:20 Wound - Sacral Gram Stain - Final Physical Exam Narrative Alert and oriented x3; obese Nontraumatic; normocephalic Lung clear to auscultate Heart sounds S1-S2. No murmur, gallop or rubs. Abdomen bowel sounds present soft, nontender nondistended. Colostomy in place. : Guy catheter in place Extremity without edema cyanosis or clubbing. Integumentary: Patient declined examination of back. Const alert, oriented x3 and no apparent distress Exam Limitations: no limitations Nutritional Appearance: overweight and obese HEENT head/scalp atraumatic Eyes PERRL, EOMs intact bilaterally and conjunctivae normal Neck no lymphadenopathy, supple and no JVD Resp normal respiratory effort, no retractions, no use of accessory muscles and clear to auscultation bilaterally Cardio regular rate, regular rhythm, S1 normal heart sound and S2 normal heart sound GI normal to inspection, nondistended, normoactive bowel sounds, soft to palpation, non-tender and non-distended Extremity normal to inspection, full ROM and no clubbing, cyanosis or edema Skin Skin Narrative: has a stage 3 decubitus ulcer on the buttock, dressing intact Neuro oriented x3 and CN's II-XII intact bilaterally Sensorium / Orientation: awake Psych affect normal Assessment & Plan Assessment/Plan (1) Infected stage IV decubitus ulcer: (2) Acute on chronic anemia: (3) Obesity: QUALIFIERS: Body mass index: BMI 40.0-44.9 Obesity classification: adult class 3 (BMI >= 40) Obesity type: due to excess calories Serious obesity comorbidity presence: with serious comorbidity Qualified Code(s): E66.01 - Morbid (severe) obesity due to excess calories; Z68.41 - Body mass index [BMI]40.0-44.9, adult (4) Dyslipidemia: (5) Depression: (6) COPD (chronic obstructive pulmonary disease): PLAN: #Infected sacral decubitus ulcer * wound care on board * on IV vancomycin and zosyn. * wound cultures ordered. * previous wound culutres grew Pseudomonas aeruginosa and Proteus mirabilis. * ID on board; recommend repeat CT scan of pelvis and/or plastic surgery consult * will consult plastic surgery and get pelvis CT * IV dilaudid for pain. * #Type 2 diabetes mellitus with neuropathy * on lantus 68 units QHS * ISS. Accuchecks ACHS. * also on metformin. * #Hypertension: on metoprolol and HCTZ #History of CAD: on aspirin and plavix as well as statin. DVT prophylaxis: lovenox Disposition: will need placement. Visit Charges Inpatient E&M: 45133 Subs Hosp L2
--- NOTE | 2021-02-12 12:25 | CT_ITS ---
STUDY: CT PELVIS WITHOUT CONTRAST REASON FOR EXAM: Female, 65 years old. Decubitus ulcer RADIATION DOSAGE (If Supplied By Facility): CTDIvol = ( 37.90 ) mGy, DLP = ( 1836.50 ) mGycm TECHNIQUE: Transaxial imaging of the pelvis was performed with oral contrast, and without intravenous administration of contrast material. Individualized dose optimization techniques were used for this CT. COMPARISON: None. FINDINGS: Visualized kidneys demonstrate hypoattenuated lesion arising off the posterior mid pole of the left kidney. No hydronephrosis. Punctate calculi within the left renal pelvic calyceal system. No left sided hydronephrosis. Normal left ureter. Urinary bladder is decompressed around an indwelling JAIME catheter. Uterus is atrophic . Normal visualized small intestine. Normal visualized descending and ascending colonic segments. Left lower quadrant colostomy. Sigmoid colonic oversew. Appendix is not visualized. There is no pelvic fluid. No free intraperitoneal air. There is no pelvic mass lesion or lymphadenopathy. Moderate atherosclerotic plaque of the pelvic arterial vasculature. Normal abdominal wall. Sacral decubitus ulcer approximating the sacrococcygeal spine. Proximal coccygeal segments are not visualized. Anterior displacement of the distal coccygeal tip. Chronic bilateral L5 pars defects with grade 1 L5 on S1 anterolisthesis and moderate L5-S1 degenerative disc disease. Sacrum is intact. Bilateral iliac wings, acetabulum, pubic rami and ischial tuberosities are intact. Postoperative change from right total hip arthroplasty with components in normal alignment. CT/Pelvis without IV Contrast IMPRESSION: 1. Sacral decubitus ulcer which approximates the sacrococcygeal junction, with nonvisualization of the proximal coccygeal segments and with anterior displacement of the distal coccygeal tip, potentially representing proximal coccygeal surgical resection versus chronic resorption. 2. Nonobstructing punctate left renal calculi 3. Simple appearing left renal cyst. Electronically Signed: Shahab Culver MD at 3:49 EDT Tel , Service support ,
[2021-02-12] MEDS: 0.9% Saline Lock 10 ML Syringe IV ×2 (12:56→13:42)
[2021-02-12] MEDS: Morphine 4 MG/ML Syringe IV (13:06)
[2021-02-12] MEDS: HYDROmorphone 1 MG/ML Syringe IV ×2 (14:25→22:20)
[2021-02-12] MEDS: Glucerna Shake 120 ML LIQUID PO ×2 (14:27→18:00)
[2021-02-12 14:39] VITALS: BP 177/62; PULSE 108; RESP 18; TEMP 36.3; O2SAT 95
[2021-02-12 17:21] LABS: Bedside Glucose 142 mg/dL (70-110)
[2021-02-12 18:57] LABS: Absolute Lymphocyte Count 1.53 X10^3/uL (0.83-4.51); Absolute Neutrophil Count 5.3 X10^3/uL (2.0-7.7); Basophil# 0.02 X10^3/uL; Basophil% 0.3 % (0-1); Eosinophil# 0.35 X10^3/uL; Eosinophils% 4.6 % (0-5); Hemoglobin 8.2 g/dL (12.0-15.0); Lymphocyte # 1.53 X10^3/ul (0.83-4.51); Lymphocyte % 20.1 % (19-41); Mean Corp Hgb Conc 30.4 g/dL (32-36); Mean Corpuscular Hgb 22.8 pg (27.0-32.0); Mean Platelet Vol. 9.8 fl (6.2-12.0); Monocyte# 0.38 X10^3/uL; NRBC Flagged by Analyzer 0 % (0-5); Neutrophil # 5.31 X10^3/uL (2.7-7.7); Neutrophil % 69.6 % (47-70); Platelet Count 296 K/mm3 (150-450); RBC Distribution Width CV 16.7 % (11.6-14.6); RBC Distribution Width SD 45.6 fl (35.1-43.9); White Blood Count 7.6 K/mm3 (4.4-11.0)
[2021-02-12 19:35] LABS: Anion Gap 6 (5-15); BUN 27 mg/dL (7-18); BUN/Creat Ratio 37.2 RATIO (10-20); Calcium,Total 6.8 mg/dL (8.5-10.1); Chloride 106 mmol/L (98-107); Creatinine, Serum 0.73 mg/dL (0.55-1.02); EST Glomerular Filtration Rate 85 mL/min (>60); Est Glom Filt Rate - Afr Amer 103 mL/min (>60); Estimated Creatinine Clearance 47.79 ml/min; Glucose 145 mg/dL (74-106); Potassium 3.8 mmol/L (3.5-5.1); Sodium Level 138 mmol/L (136-145)
[2021-02-12 19:48] LABS: Vancomycin, Trough Level 31.1 ug/mL (5.0-15.0)
--- NOTE | 2021-02-12 19:55 | NURSING ---
Vanc trough drawn at 1830 resulted 31.1. Pharmacy contacted for clarification on 1900 dose. Pharmacist stated to hold 1900 dose and further doses will be reevaluated.
[2021-02-12 22:19] VITALS: BP 151/66; PULSE 102; RESP 18; TEMP 37.1; O2SAT 97
[2021-02-12] MEDS: Atorvastatin Calcium 80 MG Tablet PO (23:13)
[2021-02-12] MEDS: Amitriptyline 25 MG Tablet 50 MG PO (23:15)
[2021-02-13 00:51] LABS: Bedside Glucose 164 mg/dL (70-110)
[2021-02-13 04:09] VITALS: BP 154/64; PULSE 103; RESP 18; TEMP 36.1; O2SAT 98
[2021-02-13] MEDS: DiphenhydrAMINE 25 MG Capsule PO (05:56)
[2021-02-13] MEDS: HYDROmorphone 1 MG/ML Syringe IV ×3 (05:57→22:05)
[2021-02-13 07:35] LABS: Vancomycin, Random Level 22.2 ug/mL (0.0-15.0)
--- NOTE | 2021-02-13 07:53 | PCM.RX.CS ---
Consult Pharmacy has been consulted to manage selected antiobiotic: Vancomycin Type of Consult: Follow-up Suspected Infection: Skin/Soft tissue Prior Doses of Antibiotics Received/Current Regimen: had been on 1250mg IV q8h but that was held last night due to a high trough of 31.1 Labs: Vancomycin Trough 31.1 ug/mL (5.0-15.0) H 02/12/21 18:30 Random Vancomycin 22.2 ug/mL (0.0-15.0) H 02/13/21 05:50 Microbiology: Microbiology 02/10/21 18:00 Blood Culture (Wb) - Anticubital Left Blood Culture - Preliminary No growth in 48 hours. 02/10/21 19:05 Blood Culture (Wb) - Anticubital Left Blood Culture - Preliminary No growth in 48 hours. 02/11/21 08:20 Wound - Sacral Gram Stain - Final 02/11/21 08:20 Wound - Sacral Wound Culture - Preliminary Gram negative [place] 02/10/21 21:12 Urine, Clean Catch Urine Culture - Final Mixed Gram Pos & Gram Neg Org Weight used for dosin kg Goal Trough: 15-20 mcg/mL Pharmacy Plan for Drug Dosing: The random vanc level drawn this morning at 05:50 was 22.2 (approx 19 hours since the last dose of 1250mg). It has come down from 31.1 last night but since it is still over 20, dosing can not be restarted yet. Will draw another random level in 8 hours to see if can resume dosing at that time. Pharmacy Service will continue to monitor and adjust dosing as required. Follow-Up Labs: Trough Vancomycin - random Labs to be done on [date and time ordered]: today 02/13/21 at 14:00
[2021-02-13 07:55] LABS: Anion Gap 11 (5-15); BUN 22 mg/dL (7-18); BUN/Creat Ratio 37.9 RATIO (10-20); Calcium,Total 6.5 mg/dL (8.5-10.1); Chloride 106 mmol/L (98-107); Creatinine, Serum 0.58 mg/dL (0.55-1.02); EST Glomerular Filtration Rate 110 mL/min (>60); Est Glom Filt Rate - Afr Amer 133 mL/min (>60); Estimated Creatinine Clearance 47.79 ml/min; Glucose 176 mg/dL (74-106); Potassium 4.1 mmol/L (3.5-5.1); Sodium Level 141 mmol/L (136-145)
[2021-02-13 08:16] LABS: Bedside Glucose 161 mg/dL (70-110)
[2021-02-13] MEDS: Insulin Lispro 100 UNIT/ML INSULN.PEN 32 UNIT SC ×2 (08:45→17:53)
[2021-02-13] MEDS: Aspirin 81 MG TAB.CHEW PO (08:46)
[2021-02-13] MEDS: Ferrous Sulfate 325 MG Tablet PO (08:46)
[2021-02-13] MEDS: DULoxetine Hcl 60 MG Capsule PO (10:00)
[2021-02-13] MEDS: Clopidogrel Bisulfate 75 MG Tablet PO (10:00)
[2021-02-13] MEDS: Nystatin Powder 15gm Bottle 1 APPLIC TOPICAL ×2 (10:00→22:07)
[2021-02-13] MEDS: Pantoprazole Sodium 20 MG Tablet PO (10:00)
[2021-02-13] MEDS: Enoxaparin 40 MG/0.4 ML Syringe SC ×2 (10:00→22:05)
[2021-02-13 10:10] VITALS: PULSE 108
[2021-02-13 12:05] LABS: Bedside Glucose 149 mg/dL (70-110)
[2021-02-13 12:49] VITALS: BP 163/81; PULSE 105; RESP 18; TEMP 36.7; O2SAT 98
[2021-02-13] MEDS: Menthol/Lanolin/Calamine/Znox 113 GM Tube 1 APPLIC TOPICAL ×2 (14:10→22:06)
[2021-02-13] MEDS: DAKIN'S SOL HALF STRENGTH (=0.25%) 1 APPLIC TOPICAL ×2 (14:11→22:06)
[2021-02-13] MEDS: 0.9% Saline Lock 10 ML Syringe IV ×2 (14:16→22:05)
[2021-02-13 15:00] VITALS: PULSE 104
--- NOTE | 2021-02-13 15:04 | PN.HOSP_ITS ---
Subjective Subjective: Patient seen and examined. She had no active complaints and review of sounds otherwise negative. She has remained hemodynamically stable. Objective Data Objective Data Vital Signs: Vital Signs Temp Pulse Resp BP Pulse Ox 98.0 F 105 H 18 163/81 H 98 02/13/21 12:49 02/13/21 12:49 02/13/21 12:49 02/13/21 12:49 02/13/21 12:49 Oxygen Flow Rate (L/min) 2 Oxygen Delivery Method Room Air Weight: 253 lb 8.505 oz Body Mass Index (BMI) 42.2 Finger Stick Blood Glucose 111 Intake & Output: Intake and Output for Last 24 Hours 02/11/21 02/12/21 02/13/21 23:59 23:59 23:59 Intake Total 2417.25 / 2417.25 2944.50 / 2944.50 1081.5 / 1081.5 Output Total 375 / 375 1999 / 1999 1025 / 1025 Balance 2042.25 / 2042.25 944.50 / 944.50 56.5 / 56.5 Lab / Micro Data Result Diagrams: 02/12/21 18:30 02/13/21 05:50 Labs: Laboratory Results - last 24 hr 02/12/21 02/12/21 02/12/21 17:12 18:30 18:30 WBC 7.6 RBC 3.60 L Hgb 8.2 L Hct 27.0 L MCV 75.0 L MCH 22.8 L MCHC 30.4 L RDW Std Deviation 45.6 H RDW Coeff of Ash 16.7 H Plt Count 296 MPV 9.8 Immature Gran % (Auto) 0.400 Neut % (Auto) 69.6 Lymph % (Auto) 20.1 [place] % (Auto) 5.0 Eos % (Auto) 4.6 Baso % (Auto) 0.3 Absolute Neuts (auto) 5.3 Absolute Lymphs (auto) 1.53 Nucleated RBC % 0 Sodium 138 Potassium 3.8 Chloride 106 Carbon Dioxide 26.0 Anion Gap 6 BUN 27 H Creatinine 0.73 Estim Creat Clear Calc 47.79 Est GFR (MDRD) Af Amer 103 Est GFR (MDRD) Non-Af 85 BUN/Creatinine Ratio 37.2 H Glucose 145 H Calcium 6.8 L Vancomycin Trough Random Vancomycin POC Glucose 142 H 05/05/2802/12/21 02/13/21 18:30 22:42 05:50 WBC RBC Hgb Hct MCV MCH MCHC RDW Std Deviation RDW Coeff of Ash Plt Count MPV Immature Gran % (Auto) Neut % (Auto) Lymph % (Auto) [place] % (Auto) Eos % (Auto) Baso % (Auto) Absolute Neuts (auto) Absolute Lymphs (auto) Nucleated RBC % Sodium Potassium Chloride Carbon Dioxide Anion Gap BUN Creatinine Estim Creat Clear Calc Est GFR (MDRD) Af Amer Est GFR (MDRD) Non-Af BUN/Creatinine Ratio Glucose Calcium Vancomycin Trough 31.1 H Random Vancomycin 22.2 H POC Glucose 164 H 02/13/21 02/13/21 02/13/21 05:50 08:12 11:56 WBC RBC Hgb Hct MCV MCH MCHC RDW Std Deviation RDW Coeff of Ash Plt Count MPV Immature Gran % (Auto) Neut % (Auto) Lymph % (Auto) [place] % (Auto) Eos % (Auto) Baso % (Auto) Absolute Neuts (auto) Absolute Lymphs (auto) Nucleated RBC % Sodium 141 Potassium 4.1 Chloride 106 Carbon Dioxide 24.0 Anion Gap 11 BUN 22 H Creatinine 0.58 Estim Creat Clear Calc 47.79 Est GFR (MDRD) Af Amer 133 Est GFR (MDRD) Non-Af 110 BUN/Creatinine Ratio 37.9 H Glucose 176 H Calcium 6.5 L* Vancomycin Trough Random Vancomycin POC Glucose 161 H 149 H Micro: Microbiology 02/11/21 08:20 Wound - Sacral Gram Stain - Final 02/11/21 08:20 Wound - Sacral Wound Culture - Preliminary Proteus mirabilis 02/10/21 18:00 Blood Culture (Wb) - Anticubital Left Blood Culture - Preliminary No growth in 48 hours. 02/10/21 19:05 Blood Culture (Wb) - Anticubital Left Blood Culture - Preliminary No growth in 48 hours. 02/10/21 21:12 Urine, Clean Catch Urine Culture - Final Mixed Gram Pos & Gram Neg Org Radiography Diagnostic Testing: Radiology Impression Pelvis CT 02/12/21 12:25 IMPRESSION: 1. Sacral decubitus ulcer which approximates the sacrococcygeal junction, with nonvisualization of the proximal coccygeal segments and with anterior displacement of the distal coccygeal tip, potentially representing proximal coccygeal surgical resection versus chronic resorption. 2. Nonobstructing punctate left renal calculi 3. Simple appearing left renal cyst. Electronically Signed: Shahab Culver MD at 3:49 EDT Tel , Service support , Physical Exam Const alert, oriented x3 and no apparent distress Exam Limitations: no limitations Nutritional Appearance: overweight and obese HEENT head/scalp atraumatic Eyes PERRL, EOMs intact bilaterally and conjunctivae normal Neck no lymphadenopathy, supple and no JVD Resp normal respiratory effort, no retractions, no use of accessory muscles and clear to auscultation bilaterally Cardio regular rate, regular rhythm, S1 normal heart sound and S2 normal heart sound GI normal to inspection, nondistended, normoactive bowel sounds, soft to palpation, non-tender and non-distended Extremity normal to inspection, full ROM and no clubbing, cyanosis or edema Skin Skin Narrative: has a stage 3 decubitus ulcer on the buttock, dressing intact Neuro oriented x3 and CN's II-XII intact bilaterally Sensorium / Orientation: awake Psych affect normal Assessment & Plan Assessment/Plan (1) Infected stage IV decubitus ulcer: (2) Acute on chronic anemia: (3) Obesity: QUALIFIERS: Obesity type: due to excess calories Obesity classification: adult class 3 (BMI >= 40) Serious obesity comorbidity presence: with serious comorbidity Body mass index: BMI 40.0-44.9 Qualified Code(s): E66.01 - Morbid (severe) obesity due to excess calories; Z68.41 - Body mass index [BMI]40.0-44.9, adult (4) Dyslipidemia: (5) Depression: (6) COPD (chronic obstructive pulmonary disease): PLAN: #Infected sacral decubitus ulcer * wound care on board * on IV vancomycin and zosyn. * wound cultures growing Proteus mirabilis; blood cultures are negative * ID on board; * CT of the pelvis done showed sacral decubitus ulcer which approximates the sacrococcygeal junction with nonvisualization of the proximal coccygeal segments with anterior displacement of the distal coccygeal tip potentially representing proximal coccygeal surgical resection versus chronic resorption. * IV dilaudid for pain. * #Type 2 diabetes mellitus with neuropathy * on lantus 68 units QHS * ISS. Accuchecks ACHS. * also on metformin. * #Hypertension: on metoprolol and HCTZ #History of CAD: on aspirin and plavix as well as statin. DVT prophylaxis: lovenox Disposition: awaiting placement. Visit Charges Inpatient E&M: 02053 Subs Hosp L2
[2021-02-13 15:08] LABS: Vancomycin, Random Level 17.8 ug/mL (0.0-15.0)
[2021-02-13 16:55] LABS: Bedside Glucose 142 mg/dL (70-110)
[2021-02-13 18:14] VITALS: BP 158/58; PULSE 106; RESP 18; TEMP 36.4; O2SAT 98
--- NOTE | 2021-02-13 18:20 | PCM.RX.CS ---
Consult Pharmacy has been consulted to manage selected antiobiotic: Vancomycin Type of Consult: Follow-up Suspected Infection: Skin/Soft tissue Prior Doses of Antibiotics Received/Current Regimen: previous dose was 1250mg IV q8h but that has been held since the last dose on 02/12 at 11:15 due to high troughs Labs: Sodium 141 mmol/L (136-145) 02/13/21 05:50 Potassium 4.1 mmol/L (3.5-5.1) 02/13/21 05:50 Chloride 106 mmol/L (98-107) 02/13/21 05:50 Carbon Dioxide 24.0 mmol/L (21.0-32.0) 02/13/21 05:50 Anion Gap 11 (5-15) 02/13/21 05:50 BUN 22 mg/dL (7-18) H 02/13/21 05:50 Creatinine 0.58 mg/dL (0.55-1.02) 02/13/21 05:50 Est GFR (MDRD) Af Amer 133 mL/min (>60) 02/13/21 05:50 Est GFR (MDRD) Non-Af 110 mL/min (>60) 02/13/21 05:50 BUN/Creatinine Ratio 37.9 RATIO (10-20) H 02/13/21 05:50 Glucose 176 mg/dL (74-106) H 02/13/21 05:50 Vancomycin Trough 31.1 ug/mL (5.0-15.0) H 02/12/21 18:30 Random Vancomycin 17.8 ug/mL (0.0-15.0) H 02/13/21 14:17 Microbiology: Microbiology 02/11/21 08:20 Wound - Sacral Gram Stain - Final 02/11/21 08:20 Wound - Sacral Wound Culture - Preliminary Proteus mirabilis 02/10/21 18:00 Blood Culture (Wb) - Anticubital Left Blood Culture - Preliminary No growth in 48 hours. 02/10/21 19:05 Blood Culture (Wb) - Anticubital Left Blood Culture - Preliminary No growth in 48 hours. 02/10/21 21:12 Urine, Clean Catch Urine Culture - Final Mixed Gram Pos & Gram Neg Org Weight used for dosin kg Estimated Creatinine Clearance: 88ml/min Goal Trough: 15-20 mcg/mL Pharmacy Plan for Drug Dosing: The random level drawn at 14:17 today came back as 17.8. This is back below 20 so dosing can be resumed per protocol. Will start a new dose of 2000mg IV q24h. This should allow more time for the patient to clear the drug so that high troughs above the goal range stop occurring. Recheck the trough before the 3rd new dose. The patient's CrCl of 88 ml/min was calculated using an adjusted body weight of 80.2kg. Pharmacy Service will continue to monitor and adjust dosing as required. Follow-Up Labs: Trough Vancomycin Labs to be done on [date and time ordered]: 02/15/21 17:30
[2021-02-13] MEDS: Amitriptyline 25 MG Tablet 50 MG PO (22:05)
[2021-02-13] MEDS: Atorvastatin Calcium 80 MG Tablet PO (22:05)
[2021-02-13 23:01] VITALS: BP 157/81; PULSE 111; RESP 18; TEMP 36.6; O2SAT 99
[2021-02-13 23:01] LABS: Bedside Glucose 195 mg/dL (70-110)
--- NOTE | 2021-02-13 23:53 | NURSING ---
pt refuses to be disturbed during night, pm care performed, refuses to be repositioned
[2021-02-14 03:24] VITALS: BP 146/76; PULSE 98; RESP 18; TEMP 36.8; O2SAT 100
[2021-02-14] MEDS: 0.9% Saline Lock 10 ML Syringe IV ×3 (03:24→13:02)
[2021-02-14] MEDS: HYDROmorphone 1 MG/ML Syringe IV ×5 (03:24→23:10)
[2021-02-14 07:20] LABS: Absolute Lymphocyte Count 1.43 X10^3/uL (0.83-4.51); Absolute Neutrophil Count 4.4 X10^3/uL (2.0-7.7); Basophil# 0.02 X10^3/uL; Basophil% 0.3 % (0-1); Eosinophil# 0.31 X10^3/uL; Eosinophils% 4.7 % (0-5); Hematocrit 27.6 % (37-47); Hemoglobin 8.1 g/dL (12.0-15.0); Lymphocyte # 1.43 X10^3/ul (0.83-4.51); Lymphocyte % 21.5 % (19-41); Mean Corp Hgb Conc 29.3 g/dL (32-36); Mean Corpuscular Hgb 21.8 pg (27.0-32.0); Mean Corpuscular Volume 74.4 fL (81-99); Mean Platelet Vol. 10.1 fl (6.2-12.0); Monocyte% 7.5 % (0-10); NRBC Flagged by Analyzer 0 % (0-5); Neutrophil # 4.38 X10^3/uL (2.7-7.7); Neutrophil % 65.7 % (47-70); Platelet Count 304 K/mm3 (150-450); RBC Distribution Width CV 16.8 % (11.6-14.6); RBC Distribution Width SD 45.1 fl (35.1-43.9); Red Blood Count 3.71 M/mm3 (4.2-5.4); White Blood Count 6.7 K/mm3 (4.4-11.0)
[2021-02-14 07:52] LABS: Anion Gap 7 (5-15); BUN 13 mg/dL (7-18); BUN/Creat Ratio 26.1 RATIO (10-20); Calcium,Total 6.9 mg/dL (8.5-10.1); Chloride 106 mmol/L (98-107); EST Glomerular Filtration Rate 131 mL/min (>60); Est Glom Filt Rate - Afr Amer 159 mL/min (>60); Estimated Creatinine Clearance 47.79 ml/min; Glucose 146 mg/dL (74-106); Potassium 3.7 mmol/L (3.5-5.1); Sodium Level 138 mmol/L (136-145)
[2021-02-14] MEDS: Aspirin 81 MG TAB.CHEW PO (09:04)
[2021-02-14] MEDS: Ferrous Sulfate 325 MG Tablet PO (09:04)
[2021-02-14 09:24] VITALS: BP 155/63; PULSE 103; RESP 18; TEMP 36.4; O2SAT 100
[2021-02-14] MEDS: Clopidogrel Bisulfate 75 MG Tablet PO (10:16)
[2021-02-14] MEDS: DULoxetine Hcl 60 MG Capsule PO (10:16)
[2021-02-14] MEDS: DAKIN'S SOL HALF STRENGTH (=0.25%) 1 APPLIC TOPICAL ×2 (10:16→22:23)
[2021-02-14] MEDS: Enoxaparin 40 MG/0.4 ML Syringe SC ×2 (10:17→22:24)
[2021-02-14] MEDS: Nystatin Powder 15gm Bottle 1 APPLIC TOPICAL ×2 (10:18→22:21)
[2021-02-14] MEDS: Pantoprazole Sodium 20 MG Tablet PO (10:18)
[2021-02-14] MEDS: DiphenhydrAMINE 25 MG Capsule PO (10:25)
--- NOTE | 2021-02-14 10:26 | CASEMGMT ---
Social Work Note BRANDON placed a call to pt's CM Samantha Gouldalex Sofia and updated her on pt's admission to [facility]. BRANDON asked Samantha about pt's liability for SNF. Samantha states pt is on PASSPORT/Waiver Program and while pt is on program pt has 90 days of being at a chcf with no patient liability. Samantha states pt may have a pt liability to pay for PASSPORT/Waiver but she is not sure if pt would have a liability or not for the program. Samantha state that if pt makes below $1500 a month pt doesn't have a pt liability for Waiver program. BRANDON placed a call to Criss at [facility] and left message regarding referral. BRANDON updated Criss on above information. BRANDON waiting for call back from Criss at [facility] regarding referral. Plan: [facility] pending acceptance Kassie Larios WINDOW SASH INSTALLER, ASSISTANT TENNIS COACH
--- NOTE | 2021-02-14 10:34 | NURSING ---
wound photo: sacrum/buttocks
[2021-02-14 12:21] LABS: Bedside Glucose 207 mg/dL (70-110)
[2021-02-14] MEDS: Glucerna Shake 120 ML LIQUID PO (12:50)
[2021-02-14] MEDS: Insulin Lispro 100 UNIT/ML INSULN.PEN 32 UNIT SC ×2 (12:51→17:55)
[2021-02-14] MEDS: Menthol/Lanolin/Calamine/Znox 113 GM Tube 1 APPLIC TOPICAL ×2 (12:53→22:22)
[2021-02-14 14:20] VITALS: BP 116/67; PULSE 101; RESP 18; TEMP 36.8; O2SAT 100
--- NOTE | 2021-02-14 14:46 | CASEMGMT ---
Pt qualifies for palliative consult per [facility] palliative screening tool and Dr. Benz is agreeable. Referral faxed and called to palliative at this time. Parish MAC CM
--- NOTE | 2021-02-14 14:54 | PCM.PN.ID ---
Physical Exam Narrative Feeling ok, no fever, no changes in stool Const alert and no apparent distress General Appearance: cooperative Resp clear to auscultation bilaterally Cardio regular rate and regular rhythm GI normal to inspection, nondistended, normoactive bowel sounds Extremity no clubbing, cyanosis or edema Skin Skin Narrative: reviewed photo ID ID: Route of nutrition/ use of supplements: [] Nutritional Intake: [] IV Site: [] Guy Catheter: [] Assessment & Plan Assessment/Plan (1) Infected stage IV decubitus ulcer: PLAN: On vanc/zosyn. Wound cx with enterococcus and proteus so far. CT pelvis done. Will stop vanc. Order 6 week course of zosyn, stop date 03/24/21. Will follow
--- NOTE | 2021-02-14 15:07 | CASEMGMT ---
Addendum entered by Kassie Larios 02/14/21 16:53: BRANDON also placed a call to Magali at [facility] to inquire about pt's Medicare Days. Magali states pt was admitted to [facility] 03/11/2020 under [facility] and was there until 05/05/2020. Pt came back to [facility] on 05/11/2020 under [employer] and was there until 06/25/2020. Pt was at [facility] on 08/08/2020 and pt was there at that time under Medicare. Pt last used Medicare days was on 09/17/2020 but pt was still at [facility] under her Medicaid until 11/21/2020 when pt was discharged home as pt didn't want to pay the pt liability. BRANDON discussed these days with Magali. Magali is seeing that pt has not had a break in care, has likely used all of her Medicare days and would once again be responsible for a pt liability. Magali confirms that even though pt had a managed Medicare, those days count towards her regular Medicare Days. Pt would need a 60 day break in care (SNF, Hospital stays) before pt's Medicare days would start over again. It appears pt has used all of her Medicare days, pt would need to go to a SNF under her Medcaid which would mean pt would need to pay the pt liability. BRANDON discussed case with Danni NAYAK, recommendation is for this worker to call [facility] to inquire if pt being on the Waiver Program could Waive pt's liability initally if pt goes to a SNF. S is closed for the day. BRANDON will call [facility] tomorrow. BRANDON also waiting for a call back from [facility] to determine if they can even accept pt clincally. Original Note: Social Work Note BRANDON received call from Criss at [facility]. Criss wanting confirmation on pt's antibiotic. BRANDON provided update. Criss states she will need to check with the clinical team to determine if they can accept pt. Criss states she will also be calling [facility] to determine how many days pt used while she was at SNF. BRANDON waiting for call back from Criss at [facility]. Pt is medically ready for discharge once SNF can accept pt. Plan: SNF pending acceptance Kassie Larios SUPERVISOR INSPECTION, SEWING MACHINE OPERATOR PAPER BAGS
[2021-02-14 17:00] LABS: Bedside Glucose 213 mg/dL (70-110)
--- NOTE | 2021-02-14 17:31 | PCM.PN.HOSP ---
Subjective Subjective: Patient was seen today, she told me that plastic surgery had entertain doing surgery on her approximately a month or month and a half ago but it was put off because the plastic surgeon was ill. I attempted to contact Dr. Mack today and he is out this week. I did talk to the wound care nurse today and she told me that the patient's wound in her opinion did not require debridement at this time. We are still awaiting information on whether the patient can go to a half-way under her insurance or whether she will have to pay [id number]. Objective Data Objective Data Vital Signs: Vital Signs Temp Pulse Resp BP Pulse Ox 98.3 F 101 H 18 116/67 100 02/14/21 14:20 02/14/21 14:20 02/14/21 14:20 02/14/21 14:20 02/14/21 14:20 Oxygen Flow Rate (L/min) 2 Oxygen Delivery Method Room Air Weight: 115 kg Body Mass Index (BMI) 42.2 Finger Stick Blood Glucose 111 Intake & Output: Intake and Output for Last 24 Hours 02/12/21 02/13/21 02/14/21 23:59 23:59 23:59 Intake Total 2944.50 / 2944.50 2255.25 / 2255.25 400 / 400 Output Total 1999 / 1999 2300 / 2300 700 / 700 Balance 944.50 / 944.50 -44.75 / -44.75 -300 / -300 Lab / Micro Data Result Diagrams: 02/14/21 06:05 02/14/21 06:05 Labs: Laboratory Results - last 24 hr 02/13/21 02/14/21 02/14/21 22:15 06:05 06:05 WBC 6.7 RBC 3.71 L Hgb 8.1 L Hct 27.6 L MCV 74.4 L MCH 21.8 L MCHC 29.3 L RDW Std Deviation 45.1 H RDW Coeff of Ash 16.8 H Plt Count 304 MPV 10.1 Immature Gran % (Auto) 0.300 Neut % (Auto) 65.7 Lymph % (Auto) 21.5 [place] % (Auto) 7.5 Eos % (Auto) 4.7 Baso % (Auto) 0.3 Absolute Neuts (auto) 4.4 Absolute Lymphs (auto) 1.43 Nucleated RBC % 0 Sodium 138 Potassium 3.7 Chloride 106 Carbon Dioxide 25.0 Anion Gap 7 BUN 13 Creatinine 0.50 L Estim Creat Clear Calc 47.79 Est GFR (MDRD) Af Amer 159 Est GFR (MDRD) Non-Af 131 BUN/Creatinine Ratio 26.1 H Glucose 146 H Calcium 6.9 L POC Glucose 195 H 02/14/21 02/14/21 12:10 16:47 WBC RBC Hgb Hct MCV MCH MCHC RDW Std Deviation RDW Coeff of Ash Plt Count MPV Immature Gran % (Auto) Neut % (Auto) Lymph % (Auto) [place] % (Auto) Eos % (Auto) Baso % (Auto) Absolute Neuts (auto) Absolute Lymphs (auto) Nucleated RBC % Sodium Potassium Chloride Carbon Dioxide Anion Gap BUN Creatinine Estim Creat Clear Calc Est GFR (MDRD) Af Amer Est GFR (MDRD) Non-Af BUN/Creatinine Ratio Glucose Calcium POC Glucose 207 H 213 H Micro: Microbiology 02/11/21 08:20 Wound - Sacral Gram Stain - Final 02/11/21 08:20 Wound - Sacral Wound Culture - Preliminary Proteus mirabilis GPC Poss Enterococcus sp 02/10/21 18:00 Blood Culture (Wb) - Anticubital Left Blood Culture - Preliminary No growth in 48 hours. 02/10/21 19:05 Blood Culture (Wb) - Anticubital Left Blood Culture - Preliminary No growth in 48 hours. 02/10/21 21:12 Urine, Clean Catch Urine Culture - Final Mixed Gram Pos & Gram Neg Org Physical Exam Const alert, oriented x3, no apparent distress and healthy appearing General Appearance: cooperative, well kempt and well developed Orientation / Consciousness: awake, oriented to person, oriented to place and oriented to time HEENT normocephalic and moist oral mucous membranes Eyes PERRL, EOMs intact bilaterally and conjunctivae normal Neck nuchal rigidity, supple, no JVD, thyroid normal and no carotid bruits General: trachea midline Resp normal respiratory effort and clear to auscultation bilaterally Auscultation: Negative for rales, rhonchi or wheezes Cardio regular rate, regular rhythm, no murmurs, no rub and no gallops GI normal to inspection, nondistended, normoactive bowel sounds, soft to palpation, non-tender and non-distended Extremity no clubbing, cyanosis or edema Skin no jaundice, no petechiae and no mottling Skin Narrative: DECUBITUS ULCERATIONS NOTED OVER COCCYX AREA-STAGE 4, DESCRIPTION UNDER NURSING NOTES General Skin Exam: no breakdown Neuro oriented x3, CN's II-XII intact bilaterally and no focal motor deficits Sensorium / Orientation: awake and alert Speech: speech normal Psych thought process normal and affect normal Assessment & Plan Assessment/Plan (1) Infected stage IV decubitus ulcer: PLAN: #1 infected decubitus ulcerations-stage IV pressure injury-organism Proteus and Enterococcus, continue antibiotic coverage per infectious diseases, continue wound care per wound nurse #2 type 2 diabetes-continue present care #3 chronic anemia-etiology unclear, patient has a history of iron deficiency anemia, it is possible that this anemia is from iron deficiency. I have ordered a serum iron level and I have increased the patient's ferrous sulfate to twice a day. #4 morbid obesity #5 chronic obstructive pulmonary disease #6 chronic depression #7 diabetic neuropathy #8 peripheral vascular disease Visit Charges Inpatient E&M: 51879 Subs Hosp L2
[2021-02-14 17:38] VITALS: BP 155/56; PULSE 100; RESP 18; TEMP 36.8; O2SAT 100
[2021-02-14 18:30] LABS: Iron 28 ug/dL (50-170)
[2021-02-14] MEDS: Amitriptyline 25 MG Tablet 50 MG PO (22:23)
[2021-02-14] MEDS: Atorvastatin Calcium 80 MG Tablet PO (22:23)
[2021-02-14 22:36] LABS: Bedside Glucose 175 mg/dL (70-110)
[2021-02-14 23:30] VITALS: BP 146/56; PULSE 107; RESP 16; TEMP 37.2; O2SAT 98
[2021-02-15 05:30] VITALS: BP 147/56; PULSE 102; RESP 16; TEMP 37.1; O2SAT 99
[2021-02-15] MEDS: Menthol/Lanolin/Calamine/Znox 113 GM Tube 1 APPLIC TOPICAL ×2 (05:50→14:13)
[2021-02-15 06:26] LABS: Bedside Glucose 95 mg/dL (70-110)
[2021-02-15 07:10] LABS: Absolute Lymphocyte Count 1.56 X10^3/uL (0.83-4.51); Absolute Neutrophil Count 4.3 X10^3/uL (2.0-7.7); Basophil# 0.02 X10^3/uL; Basophil% 0.3 % (0-1); Eosinophil# 0.39 X10^3/uL; Eosinophils% 5.5 % (0-5); Hematocrit 27.1 % (37-47); Hemoglobin 8.2 g/dL (12.0-15.0); Lymphocyte # 1.56 X10^3/ul (0.83-4.51); Lymphocyte % 22.2 % (19-41); Mean Corp Hgb Conc 30.3 g/dL (32-36); Mean Corpuscular Hgb 22.5 pg (27.0-32.0); Mean Corpuscular Volume 74.2 fL (81-99); Mean Platelet Vol. 9.8 fl (6.2-12.0); Monocyte# 0.69 X10^3/uL; Monocyte% 9.8 % (0-10); NRBC Flagged by Analyzer 0 % (0-5); Neutrophil # 4.34 X10^3/uL (2.7-7.7); Neutrophil % 61.8 % (47-70); Platelet Count 304 K/mm3 (150-450); RBC Distribution Width CV 16.8 % (11.6-14.6); RBC Distribution Width SD 45.1 fl (35.1-43.9); Red Blood Count 3.65 M/mm3 (4.2-5.4)
--- NOTE | 2021-02-15 08:55 | CASEMGMT ---
Addendum entered by Kassie Larios 02/15/21 11:32: BRANDON received call from Mayra at [facility]. Mayra states she reviewed pt's Medicare Days. Pt has full 100 days for Medicare, pt's days have reset. Mayra states that since pt's last skilled today at [facility] was 09/17/2020 and pt was not admitted to [facility] until 12/01/2020, pt had 60 day break in care for skilled days. BRANDON informed Mayra that pt was still at [facility] until 11/21/2020. Mayra states pt was there until 11/21/2020 under Medicaid days, pt wasn't skilled. Since pt wasn't skilled from 09/17/2020 to 11/21/2020, pt had the 60 days break in care and pt has full 100 days for Medicare. Pt can go to SNF under Medicare. BRANDON asked Mayra if [facility] is able to accept pt, Mayra states she still needs to check with the RN. Addendum entered by Kassie Larios 02/15/21 09:56: SW in to speak with pt. BRANDON updated pt that [facility] is reporting pt will not have a pt liability to initially go to the SNF. Pt may eventually have one but will not initially. BRANDON informed pt that [facility] hasn't got back to this worker regarding referral. BRANDON asked pt for a second choice for SNF in the event [facility] is not able to accept pt. Pt states her second choice is [facility]. BRANDON placed a call to Mayra at [facility] and provided referral. BRANDON faxed referral. Kassei Larios EM PHYSICIAN, ELECTRIC FURNACE OPERATOR Original Note: Social Work Note BRANDON placed a call to Jess Mauro at [facility] to inquire about pt's liability. Jess states pt's waiver program is currently being updated and was recently approved until February 05. Jess states they are currently in due process working on the March Budgets, will be switching to April. Jess states if pt were to go to a SNF initially, she wouldn't have a pt liability. If pt were to stay at a facility, she may end up having one but to go initially, pt wouldn't have one. Jess states once pt is approved again for the Waiver Program pt would have 90 days under the Waiver program at a facility. Jess states that with the pandemic pt's are not being disenrolled under the Waiver Program at all while at a facility. Jess states she will make a note that pt may go to a SNF. BRANDON placed a call to Criss at [facility] and left message updating her on the above information. BRANDON also asked if clinically [facility] is able to accept pt. SW waiting for call back. Kassie Larios EM PHYSICIAN, ELECTRIC FURNACE OPERATOR
[2021-02-15 09:26] VITALS: BP 165/67; PULSE 103; RESP 16; TEMP 36.9; O2SAT 96
[2021-02-15] MEDS: Aspirin 81 MG TAB.CHEW PO (09:28)
[2021-02-15] MEDS: Glucerna Shake 120 ML LIQUID PO ×2 (09:30→16:52)
[2021-02-15] MEDS: HYDROmorphone 1 MG/ML Syringe IV ×3 (09:35→18:05)
[2021-02-15] MEDS: 0.9% Saline Lock 10 ML Syringe IV ×2 (09:35→18:02)
--- NOTE | 2021-02-15 09:44 | NURSING ---
Pt refusing dressing change at this time even though pt was medicated with Dilaudid. Pt states she wants to eat breakfast first so now wants this nurse to wait until this afternoon when she is able to have pain medication again. Pt may possibly be discharged today. If pt is discharged, dressing can be completed at the correction.
[2021-02-15] MEDS: DULoxetine Hcl 60 MG Capsule PO (10:36)
[2021-02-15] MEDS: DAKIN'S SOL HALF STRENGTH (=0.25%) 1 APPLIC TOPICAL (10:36)
[2021-02-15] MEDS: Enoxaparin 40 MG/0.4 ML Syringe SC (10:37)
[2021-02-15] MEDS: Nystatin Powder 15gm Bottle 1 APPLIC TOPICAL (10:37)
[2021-02-15] MEDS: Pantoprazole Sodium 20 MG Tablet PO (10:38)
[2021-02-15] MEDS: Clopidogrel Bisulfate 75 MG Tablet PO (10:38)
--- NOTE | 2021-02-15 12:00 | CASEMGMT ---
Addendum entered by Kassie Larios 02/15/21 15:54: SW completed convalescent 7000 in [facility]. BRANDON placed a call to Berna at [facility] and updated her that pt will be discharged to [facility] today. Berna states understanding. Addendum entered by Kassie Larios 02/15/21 14:19: SW received message from Mayra at [facility] stating they have two doctors, Dr. Barba and Dr. Rudolph. Mayra states pt will have Dr. Rudolph as that doctor specializes in wound care. BRANDON in to speak with pt. SW updated pt that [facility] is not able to accept pt. SW updated pt on the MD's at [facility]. Pt agreeable to going to [facility]. Pt states her son will be at [facility] around 3:15pm and would like to be discharged after her son is at [facility]. BRANDON informed pt that this worker will arrange transportation for later this evening. Pt states understanding. BRANDON updated physician. Plan: [facility] today Original Note: Social Work Note SW received call from Mayra at [facility] stating they can accept pt today. Mayra states to make sure pt knows she is not able to smoke there and also asked if pt has received COVID vaccinations. BRANDON in to speak with pt. BRANDON updated pt that [facility] is able to accept pt. SW updated pt that pt will not be able to smoke while at [facility]. Pt states understanding. BRANDON asked pt about the COVID vaccinations. Pt states she has received both vaccinations with the second once being in October. Pt states that [place] as that information. SW informed pt that [facility] is able to accept pt. BRANDON informed pt that this worker has not heard back yet from [facility]. Pt states to wait to hear from [facility] and also asked who the doctor was at [facility]. BRANDON informed pt that this worker will check on both [facility] regarding referral and will ask [facility] who their doctor is. Pt states understanding. BRANDON then received message from Criss at [facility] stating they are not able to accept pt. BRANDON placed a call to Mayra at [facility] and left message asking who their MD's are. SW waiting for call back from Mayra. Kassie Larios CONCRETE BUCKET HOOKER, DEHYDROGENATION CONVERTER OPERATOR
[2021-02-15] MEDS: DiphenhydrAMINE 25 MG Capsule PO (12:28)
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
[2021-02-15] MEDS: Ferrous Sulfate 325 MG Tablet PO ×2 (12:30→16:53)
[2021-02-15] MEDS: Insulin Lispro 100 UNIT/ML INSULN.PEN 32 UNIT SC (14:14)
[2021-02-15 14:21] VITALS: BP 158/75; PULSE 103; RESP 18; TEMP 36.9; O2SAT 97
[2021-02-15 14:30] LABS: Bedside Glucose 203 mg/dL (70-110)
--- NOTE | 2021-02-15 15:38 | TREXTCAR_ITS ---
Diet 02/11/21 02:29 Diet: Consistent Carb - Calorie Controlled Type of Dietary Supplement:: Milo at breakfast&dinner Is pt able to select menu?: Yes Diet Comments: mix in van/ivelisse icecream,w/strawberry&bananaOK for pie if fits in CHO limit How many daily calories?: 1800 calorie Routine Orders/Code Status Routine Lab Work: CBC (in 5 days) and - (fingerstick blood sugars acqhs-coverage per protocol with SQ Humalo-250: 8 units, 251-300:12 units, 301-350: 15 units) Code Status: Full Code Wound(s) Right buttock: Wound Type: Pressure Injury Dressing Change: AntiMicrobial (Aquacel AG, etc) (daily) coccyx: Wound Type: Pressure Injury sacrum: Wound Type: Pressure Injury Dressing Change: Dakins moistened gauze (Dakins (HySept) moistened gauze dressing daily to sacral wound. place Aquacel AG to the right buttock wound. covered with dry dressing. secure with tape. change daily and prn. ) Therapies Weight Bearing: Weight bearing as tolerated Physical Therapy: Eval and Treat Occupational Therapy: Eval and Treat Problem/Diagnosis (1) Chronic pain: Status: Chronic (2) Diabetic neuropathy: Status: Chronic (3) Peripheral vascular disease in diabetes mellitus: Status: Chronic (4) Pressure ulcer of sacral region, stage 4: Status: Chronic (5) Morbid obesity with BMI of 40.0-44.9, adult: Status: Acute (6) Infected stage IV decubitus ulcer: Status: Chronic Comment: Proteus and Enterococcus (7) Diabetes mellitus type II: Status: Chronic (8) Coronary artery disease: Status: Chronic Comment: Status post CABG Allergies/Procedures Done in Hospital Allergies iodine Allergy (Verified 02/10/21 16:49) Rash povidone-iodine [From Betadine] Allergy (Verified 02/10/21 16:49) Itching topical betadine prednisone Allergy (Verified 02/10/21 16:49) tiny mouth ulcers Procedures: None Type of Care/Length of Stay Estimated LOS: Convalescent Care Less Than 30 days Type of Care Needed: Skilled Rehab Potential: Good Prognosis: Good Additional Orders/Day of Discharge Additional Orders: Palliative Care, ostomy care H&P will serve as current which was dated: 02/10/21 Day of Discharge: 02/15/21 Dietary and Speech Recommendations Dietitian Recommendations/Changes: Will continue 1800 calorie controlled diet as ordered and allow pt to have pie if it fits in CHO limit. Will add Milo BID for wound healing. Will continue Glucerna 120mL 4x/day. Discharge Plan Admission Admit Date/Time: 02/10/21 22:39 Primary Reason for Your Visit: infected pressure injury Attending Provider: Jacob Benz Primary Care Provider: Gera Snider III Consulting Providers: Fortino Gatica Instructions Additional Instructions / Restrictions: Follow up with [facility] in 2-3 weeks Discharge Orders/Prescriptions Prescriptions: New Zosyn in dextrose (iso-osm) 3.375 gram/50 mL piggyback 3.375 g IV Q8H 36 Days Qty: 6075 RF: 0 ferrous sulfate 325 mg (65 mg iron) Tablet 325 mg PO 1200,1700 Qty: 0 RF: 0 nystatin [Nyamyc] 100,000 unit/gram Powder 1 applic topical BID Qty: 0 RF: 0 HySept 0.25 % Solution 1 applic topical BID Qty: 0 RF: 0 Continued atorvastatin 80 MG tablet 80 mg PO QHS RF: 0 omeprazole 20 MG capsule 20 mg PO DAILY RF: 0 metoprolol tartrate 25 MG tablet 25 mg PO BID RF: 0 clopidogrel 75 MG tablet 75 mg PO DAILY RF: 0 sodium hypochlorite 1 APPLIC bottle 1 applic TOPICAL DAILY RF: 0 metformin 500 MG tablet 500 mg PO BIDCM RF: 0 lisinopril 20 MG tablet 20 mg PO DAILY RF: 0 amitriptyline 50 MG tablet 50 mg PO QHS RF: 0 insulin aspart U-100 100 UNIT/ML solution 32 units SQ TIDCM RF: 0 hydrochlorothiazide 12.5 MG capsule 12.5 mg PO DAILY RF: 0 duloxetine 60 MG capsule,delayed release(DR/EC) 60 mg PO DAILY RF: 0 insulin glargine 100 UNITS/ML insulin pen 70 units SC QHS RF: 0 aspirin 81 mg Tablet 81 mg PO DAILY RF: 0 fluconazole 150 mg tablet 150 mg PO TUTH RF: 0 tramadol 50 MG tablet 50 mg PO Q6H PRN PRN (Reason: Pain Score 4-10/10) 7 Days Qty: 20 RF: 0 diphenoxylate-atropine 1 EACH tablet 1 tablet PO BID PRN (Reason: Diarrhea) 7 Days Qty: 15 RF: 0 Discontinued ferrous sulfate 325 MG tablet 325 mg PO DAILY@0800 RF: 0 Referrals / Follow Up: Gera Snider III, MD [Primary Care Provider] - Disposition Disposition (needs filled in before D/C Order can be placed): [facility] Facility
--- NOTE | 2021-02-15 16:06 | CASEMGMT ---
Social Work Note SW is leaving for the day. BRANDON faxed COVID test and Tool to Mayra at [facility]. BRANDON placed Green sheet, transport forms, HENS, COVID test and COVID tool on pt's chart. BRANDON did tell Mayra at [facility] that pt will be discharged today. Plan: [facility] skilled today Kassie Larios MSW, MILITARY POLICE OFFICER
[2021-02-15 17:26] LABS: Bedside Glucose 200 mg/dL (70-110)
[2021-02-15 18:19] VITALS: BP 154/57; PULSE 105; RESP 18; TEMP 36.6; O2SAT 97
--- NOTE | 2021-02-18 08:53 | DS.PCM_ITS ---
Providers Date of Admission: 02/10/21 Date of Discharge: 02/15/21 Primary Care Physician: Dr. Gera Snider III, MD Consultations 02/11/21 00:05 Consult: Infectious Disease Routine Consulting Provider: Fortino Gatica Reason for Consult: Infected decubitus ulcer EMERGENT Consult: No MD Notified: Yes Date Notified:: 02/11/21 Time Notified: 04:33 Method of Notification: Answering Service Consult: Onc/Wound/sat instructor Routine Comment: Reason for Consult:: ostomy and wound Reason For Visit: DECUB ULCER Diagnosis Discharge Diagnosis (1) Chronic pain: Status: Chronic Code(s): G89.29 - Other chronic pain Qualifiers: Chronic pain type: other chronic pain Qualified Code(s): G89.29 - Other chronic pain (2) Diabetic neuropathy: Status: Chronic Code(s): E11.40 - Type 2 diabetes mellitus with diabetic neuropathy, unspecified Qualifiers: Diabetes mellitus type: type 2 Diabetes mellitus complication detail: diabetic autonomic neuropathy Qualified Code(s): E11.43 - Type 2 diabetes mellitus with diabetic autonomic (poly)neuropathy (3) Peripheral vascular disease in diabetes mellitus: Status: Chronic Code(s): E11.51 - Type 2 diabetes mellitus with diabetic peripheral angiopathy without gangrene (4) Pressure ulcer of sacral region, stage 4: Status: Chronic Code(s): L89.154 - Pressure ulcer of sacral region, stage 4 (5) Morbid obesity with BMI of 40.0-44.9, adult: Status: Acute Code(s): E66.01 - Morbid (severe) obesity due to excess calories; Z68.41 - Body mass index [BMI]40.0-44.9, adult (6) Infected stage IV decubitus ulcer: Status: Chronic (7) Diabetes mellitus type II: Status: Chronic (8) Coronary artery disease: Status: Chronic Plan: #1 infected decubitus ulcerations-stage IV pressure injury-organism Proteus and Enterococcus #2 type 2 diabetes #3 chronic iron deficiency anemia #4 morbid obesity #5 chronic obstructive pulmonary disease #6 chronic depression #7 diabetic neuropathy #8 peripheral vascular disease Medications at Discharge Home Medications atorvastatin 80 mg PO QHS 03/24/15 metoprolol tartrate 25 mg PO BID 03/24/15 omeprazole 20 mg PO DAILY 03/24/15 clopidogrel 75 mg PO DAILY 12/02/20 sodium hypochlorite 1 applic TOPICAL DAILY bottle 12/07/20 amitriptyline 50 mg PO QHS 01/05/21 duloxetine 60 mg PO DAILY 01/05/21 hydrochlorothiazide 12.5 mg PO DAILY 01/05/21 insulin aspart U-100 32 units SQ TIDCM 01/05/21 insulin glargine 70 units SC QHS 01/05/21 lisinopril 20 mg PO DAILY 01/05/21 metformin 500 mg PO BIDCM 01/05/21 aspirin 81 mg PO DAILY 02/11/21 [id number] [Zosyn in dextrose (iso-osm)] 3.375 g IV Q8H 36 Days #6075 bag 02/14/21 diphenoxylate-atropine 1 tablet PO BID PRN 7 Days #15 tab 02/15/21 ferrous sulfate 325 mg PO 1200,1700 #0 tab 02/15/21 fluconazole 150 mg PO TUTH 02/15/21 nystatin [Nyamyc] 1 applic TOPICAL BID #0 g 02/15/21 sodium hypochlorite [HySept] 1 applic TOPICAL BID #0 ml 02/15/21 tramadol 50 mg PO Q6H PRN PRN 7 Days #20 tab 02/15/21 Hospital Course Operations None Procedures None Summary of Care Provided Minutes Spent on Discharge: 34 Hospital Course: This 65-year-old white female was seen in the emergency room at [facility] with complaints of a worsening sacral decubitus wound. Patient had increased drainage from her wound at home and was seen by home nursing and sent to the emergency room for evaluation. Patient was given IV fluids in the emergency room and given IV Zosyn and vancomycin. She was felt to be appropriate for admission for infected pressure ulceration on the sacral area. She was admitted to [place] [id number], placed on IV antibiotics and seen in consultation by infectious diseases. She was seen by the wound care nurse, she was not felt to need debridement of her wound. Patient was seen by physical therapy and Occupational Therapy, it was felt that she would benefit from inpatient alf at an extended care facility. On 02/15/2021 patient was seen and examined: Const alert, oriented x3, no apparent distress and healthy appearing General Appearance: cooperative, well kempt and well developed Orientation / Consciousness: awake, oriented to person, oriented to place and oriented to time HEENT normocephalic and moist oral mucous membranes Eyes PERRL, EOMs intact bilaterally and conjunctivae normal Neck nuchal rigidity, supple, no JVD, thyroid normal and no carotid bruits General: trachea midline Resp normal respiratory effort and clear to auscultation bilaterally Auscultation: Negative for rales, rhonchi or wheezes Cardio regular rate, regular rhythm, no murmurs, no rub and no gallops GI normal to inspection, nondistended, normoactive bowel sounds, soft to palpation, non-tender and non-distended Extremity no clubbing, cyanosis or edema Skin no jaundice, no petechiae and no mottling Skin Narrative: DECUBITUS ULCERATIONS NOTED OVER COCCYX AREA-STAGE 4, DESCRIPTION UNDER NURSING NOTES General Skin Exam: Decubitus ulcerations are noted over the coccyx area-stage IV Neuro oriented x3, CN's II-XII intact bilaterally and no focal motor deficits Sensorium / Orientation: awake and alert Speech: speech normal Psych thought process normal and affect normal On 02/15/2021, patient was seen and discharge to an extended care facility in stable condition. ABG / Lab / Microbiology Data Result Diagrams: 02/15/21 06:00 02/14/21 06:05 Microbiology: Microbiology 02/10/21 19:05 Blood Culture (Wb) - Anticubital Left Blood Culture - Final No growth in 5 days. 02/10/21 18:00 Blood Culture (Wb) - Anticubital Left Blood Culture - Final No growth in 5 days. 02/15/21 15:23 Mucosa - Nose SARS-CoV-2 Antigen (Rapid) - Final 02/11/21 08:20 Wound - Sacral Gram Stain - Final 02/11/21 08:20 Wound - Sacral Wound Culture - Final Proteus mirabilis Enterococcus faecalis 02/10/21 21:12 Urine, Clean Catch Urine Culture - Final Mixed Gram Pos & Gram Neg Org Meaningful Use Info Meaningful Use Diagnoses (Choose all that apply): None applicable Discharge Plan Admission Admit Date/Time: 02/10/21 22:39 Primary Reason for Your Visit: infected pressure injury Attending Provider: Jacob Benz Primary Care Provider: Gera Snider III Consulting Providers: Fortino Gatica Instructions Additional Instructions / Restrictions: Follow up with [facility] in 2-3 weeks Discharge Orders/Prescriptions Prescriptions: New Zosyn in dextrose (iso-osm) 3.375 gram/50 mL piggyback 3.375 g IV Q8H 36 Days Qty: 6075 RF: 0 ferrous sulfate 325 mg (65 mg iron) Tablet 325 mg PO 1200,1700 Qty: 0 RF: 0 nystatin [Nyamyc] 100,000 unit/gram Powder 1 applic topical BID Qty: 0 RF: 0 HySept 0.25 % Solution 1 applic topical BID Qty: 0 RF: 0 Continued atorvastatin 80 MG tablet 80 mg PO QHS RF: 0 omeprazole 20 MG capsule 20 mg PO DAILY RF: 0 metoprolol tartrate 25 MG tablet 25 mg PO BID RF: 0 clopidogrel 75 MG tablet 75 mg PO DAILY RF: 0 sodium hypochlorite 1 APPLIC bottle 1 applic TOPICAL DAILY RF: 0 metformin 500 MG tablet 500 mg PO BIDCM RF: 0 lisinopril 20 MG tablet 20 mg PO DAILY RF: 0 amitriptyline 50 MG tablet 50 mg PO QHS RF: 0 insulin aspart U-100 100 UNIT/ML solution 32 units SQ TIDCM RF: 0 hydrochlorothiazide 12.5 MG capsule 12.5 mg PO DAILY RF: 0 duloxetine 60 MG capsule,delayed release(DR/EC) 60 mg PO DAILY RF: 0 insulin glargine 100 UNITS/ML insulin pen 70 units SC QHS RF: 0 aspirin 81 mg Tablet 81 mg PO DAILY RF: 0 fluconazole 150 mg tablet 150 mg PO TUTH RF: 0 tramadol 50 MG tablet 50 mg PO Q6H PRN PRN (Reason: Pain Score 4-10/10) 7 Days Qty: 20 RF: 0 diphenoxylate-atropine 1 EACH tablet 1 tablet PO BID PRN (Reason: Diarrhea) 7 Days Qty: 15 RF: 0 Discontinued ferrous sulfate 325 MG tablet 325 mg PO DAILY@0800 RF: 0 Referrals / Follow Up: Gera Snider III, MD [Primary Care Provider] - Disposition Disposition (needs filled in before D/C Order can be placed): Custodial Facility Visit Charges Inpatient E&M: 93617 Disch Hosp
== END 2021-02-15 19:13 | disposition skilled nursing facility (03) | DRG 593 ==
LOC: ED 22:44 → MS3 02-11 06:34
PROVIDERS: Internal Medicine Infectious Disease; Student in an Organized Health Care Education/Training Program; Admitting Provider Hospitalist; Emergency Provider Emergency Medicine; PCP Family Medicine; Visit Provider Internal Medicine
DX: L89.154 Pressure ulcer of sacral region, stage 4 (principal); Z68.41 Body mass index [BMI] 40.0-44.9, adult; G89.29 Other chronic pain; L08.9 Local infection of the skin and subcutaneous tissue, unspecified; B96.4 Proteus (mirabilis) (morganii) as the cause of diseases classified elsewhere; B95.2 Enterococcus as the cause of diseases classified elsewhere; E11.43 Type 2 diabetes mellitus with diabetic autonomic (poly)neuropathy; E11.51 Type 2 diabetes mellitus with diabetic peripheral angiopathy without gangrene; E66.01 Morbid (severe) obesity due to excess calories; I25.10 Atherosclerotic heart disease of native coronary artery without angina pectoris; I25.2 Old myocardial infarction; D50.9 Iron deficiency anemia, unspecified; J44.9 Chronic obstructive pulmonary disease, unspecified; F32.9 Major depressive disorder, single episode, unspecified; F17.200 Nicotine dependence, unspecified, uncomplicated; I10 Essential (primary) hypertension; R62.7 Adult failure to thrive; G47.30 Sleep apnea, unspecified; E78.5 Hyperlipidemia, unspecified; Z93.3 Colostomy status; Z95.1 Presence of aortocoronary bypass graft; Z95.5 Presence of coronary angioplasty implant and graft; Z91.041 Radiographic dye allergy status; Z79.02 Long term (current) use of antithrombotics/antiplatelets; Z79.4 Long term (current) use of insulin; Z79.82 Long term (current) use of aspirin; Z79.899 Other long term (current) drug therapy; Z86.73 Personal history of transient ischemic attack (TIA), and cerebral infarction without residual deficits
CPT/HCPCS: 36415; 36569; 71045; 72192; 80048; 80053; 80202; 81001; 82962; 83540; 83605; 85025; 85610; 85730; 87040; 87070; 87077; 87086; 87088; 87186; 87205; 87426; 87640; 93005; 97110; 97162; 97166; 97802; 97803; 99285; J7030; J7040; J7050; A4216

== ENCOUNTER 2021-04-27 18:10 | Emergency (ER) | payer MEDICARE, MEDICAID, SELFPAY ==
[2021-04-27 18:11] VITALS: BP 142/98; PULSE 84; RESP 12; TEMP 36.5; O2SAT 100; BMI 42.6
--- NOTE | 2021-04-27 18:49 | EDS_ITS ---
HPI History of Present Illness Chief Complaint: Abn Labs Informant: patient and SNF Narrative Narrative: Patient sent for magnesium infusion due to low magnesium levels. She is asymptomatic. She denies having any muscle weakness or fasciculations or tetany. She is upset that they interrupt her day and sent her to the ER for this. She states they took her blood the other day and it was low so they were giving her some tablets, they repeated it today and it was very low when she was sent here not all she can tell us. [facility] Medical History Anxiety Chest pain Chronic pain Colostomy in place Congestive heart failure (CHF) COPD (chronic obstructive pulmonary disease) Coronary artery disease Depression Guy catheter in place GERD (gastroesophageal reflux disease) Hearing loss, left Hearing loss, right Hypertension Osteomyelitis due to secondary diabetes Past heart attack Sleep apnea Smoker Smoker Stroke/cerebrovascular accident Stroke/cerebrovascular accident TIA (transient ischemic attack) Vulva cancer Wound cellulitis after surgery Home Medications atorvastatin 80 mg PO QHS 03/24/15 [History Last Taken 02/09/21] metoprolol tartrate 25 mg PO BID 03/24/15 [History Last Taken 02/10/21] omeprazole 20 mg PO DAILY 03/24/15 [History Last Taken 02/10/21] clopidogrel 75 mg PO DAILY 12/02/20 [History Last Taken 02/10/21] sodium hypochlorite 1 applic TOPICAL DAILY bottle 12/07/20 [Rx Last Taken 02/10/21] amitriptyline 50 mg PO QHS 01/05/21 [History Last Taken 02/09/21] duloxetine 60 mg PO DAILY 01/05/21 [History Last Taken 02/10/21] hydrochlorothiazide 12.5 mg PO DAILY 01/05/21 [History Last Taken 02/10/21] insulin aspart U-100 32 units SQ TIDCM 01/05/21 [History Last Taken 02/10/21] insulin glargine 70 units SC QHS 01/05/21 [History Last Taken 02/09/21] lisinopril 20 mg PO DAILY 01/05/21 [History Last Taken 02/10/21] metformin 500 mg PO BIDCM 01/05/21 [History Last Taken 02/10/21] aspirin 81 mg PO DAILY 02/11/21 [History Last Taken 02/10/21] [id number] [Zosyn in dextrose (iso-osm)] 3.375 g IV Q8H 36 Days #6075 bag 02/14/21 [Rx Last Taken Unknown] diphenoxylate-atropine 1 tablet PO BID PRN 7 Days #15 tab 02/15/21 [Rx Last Taken Unknown] ferrous sulfate 325 mg PO 1200,1700 #0 tab 02/15/21 [Rx Last Taken Unknown] fluconazole 150 mg PO TUTH 02/15/21 [History Last Taken Unknown] nystatin [Nyamyc] 1 applic TOPICAL BID #0 g 02/15/21 [Rx Last Taken Unknown] sodium hypochlorite [HySept] 1 applic TOPICAL BID #0 ml 02/15/21 [Rx Last Taken Unknown] tramadol 50 mg PO Q6H PRN PRN 7 Days #20 tab 02/15/21 [Rx Last Taken Unknown] hydrocodone-acetaminophen [[place]] 2 tab PO Q8H PRN 04/27/21 [History Last Taken Unknown] potassium chloride 20 meq PO DAILY 04/27/21 [History Last Taken Unknown] Allergy/AdvReac Type Severity Reaction Status Date / Time iodine Allergy Rash Verified 04/27/21 18:10 povidone-iodine Allergy Itching Verified 04/27/21 18:10 [From Betadine] prednisone Allergy tiny Verified 04/27/21 18:10 mouth ulcers Family History Other Cancer Diabetes Heart disease Surgical History H/O foot surgery History of cholecystectomy History of cholecystectomy Hx of CABG Hx of CABG (~01/2015) Previous back surgery Social History Smoking Status: Current some day smoker tobacco type: cigarettes ROS ROS ED Constitutional Constitutional ED: Denies chills or fever(s) Eyes Eyes: Denies change in vision or diplopia ENT ENT ED: Denies rhinorrhea or sore throat Cardiovascular Cardiovascular: Denies chest pain or palpitations Respiratory/Chest Respiratory/Chest: Denies cough or dyspnea Gastrointestinal Gastrointestinal: Denies abdominal pain, diarrhea, nausea or vomiting Genitourinary Genitourinary ED: Denies dysuria or hematuria Musculoskeletal Musculoskeletal: Denies back pain, muscle cramps, muscle spasms, myalgias, neck pain or tremors Integumentary Denies abscess or rash Neurologic Neurologic: Reports weakness and other Details: Chronic lower extremity weakness unchanged ; Denies headache(s) or paresthesias Psychiatric Psychiatric: Denies anxiety or suicidal thoughts EXAM Physical Exam Const Vital Signs: 04/27/21 18:11 04/27/21 18:15 Temperature 97.7 F L Temperature Source Temporal Pulse Rate 84 Respiratory Rate 12 Respiratory Effort Short of Breath Respiratory Pattern Normal Blood Pressure 142/98 H Blood Pressure Mean 112 Pulse Ox 100 Oxygen Delivery Method Room Air Positive well nourished and well developed General Appearance ED: well developed and NAD HEENT Reports moist mucous membranes normocephalic and atraumatic Eyes PERRL and EOMs intact bilaterally Neck full ROM and supple Resp normal respiratory effort and clear to auscultation bilaterally Cardio regular rate, regular rhythm and no murmurs GI non-tender and non-distended Auscultation: normoactive bowel sounds Palpation: soft Back/Spine no CVA tenderness General Back: other FROM Extremity normal to inspection General Extremety ED: Negative for edema, pulses abnormal or tenderness General Extremity: Negative for edema or pulses abnormal Neuro oriented x3, CN's II-XII intact bilaterally and no sensory deficits noted Neuro Narrative: Moves upper extremities normally. Able to move lower extremities, symmetrically weak. Sensorium / Orientation: awake and alert Skin no rashes or lesions noted and no wounds MDM MDM MDM Narrative Medical decision making narrative: Patient's magnesium is low at 0.5. She is asymptomatic. I got her started with a dose of 2 g of magnesium sulfate, and since she is asymptomatic I feel she is stable to go back and continue receiving magnesium at the alf since she is low acuity and there currently are 10+ people in the waiting room of the emergency department. Lab Data Attestation: I reviewed the patient's lab results. Labs: Laboratory Results - last 24 hr 04/27/21 18:35 Sodium 137 Potassium 4.7 Chloride 109 H Carbon Dioxide 23.0 Anion Gap 5 BUN 36 H Creatinine 0.70 Estim Creat Clear Calc 49.12 Est GFR (MDRD) Af Amer 108 Est GFR (MDRD) Non-Af 89 BUN/Creatinine Ratio 51.7 H Glucose 107 H Calcium 7.6 L Magnesium 0.5 L* Discharge Plan Triage Chief Complaint: Abn Labs ED Provider: Rey Cotto Dx/Rx/DC Orders Clinical Impression: Hypomagnesemia Instructions: Discharge Instructions for ... Prescriptions: No Action atorvastatin 80 MG tablet 80 mg PO QHS RF: 0 omeprazole 20 MG capsule 20 mg PO DAILY RF: 0 metoprolol tartrate 25 MG tablet 25 mg PO BID RF: 0 clopidogrel 75 MG tablet 75 mg PO DAILY RF: 0 sodium hypochlorite 1 APPLIC bottle 1 applic TOPICAL DAILY RF: 0 metformin 500 MG tablet 500 mg PO BIDCM RF: 0 lisinopril 20 MG tablet 20 mg PO DAILY RF: 0 amitriptyline 50 MG tablet 50 mg PO QHS RF: 0 insulin aspart U-100 100 UNIT/ML solution 32 units SQ TIDCM RF: 0 hydrochlorothiazide 12.5 MG capsule 12.5 mg PO DAILY RF: 0 duloxetine 60 MG capsule,delayed release(DR/EC) 60 mg PO DAILY RF: 0 insulin glargine 100 UNITS/ML insulin pen 70 units SC QHS RF: 0 aspirin 81 mg Tablet 81 mg PO DAILY RF: 0 Zosyn in dextrose (iso-osm) 3.375 gram/50 mL piggyback 3.375 g IV Q8H 36 Days Qty: 6075 RF: 0 fluconazole 150 mg tablet 150 mg PO TUTH RF: 0 ferrous sulfate 325 mg (65 mg iron) Tablet 325 mg PO 1200,1700 Qty: 0 RF: 0 nystatin [Nyamyc] 100,000 unit/gram Powder 1 applic topical BID Qty: 0 RF: 0 HySept 0.25 % Solution 1 applic topical BID Qty: 0 RF: 0 tramadol 50 MG tablet 50 mg PO Q6H PRN PRN (Reason: Pain Score 4-10/10) 7 Days Qty: 20 RF: 0 diphenoxylate-atropine 1 EACH tablet 1 tablet PO BID PRN (Reason: Diarrhea) 7 Days Qty: 15 RF: 0 hydrocodone-acetaminophen [[place]] 5-325 mg Tablet 2 tab PO Q8H PRN (Reason: Pain) RF: 0 potassium chloride 20 mEq Tablet,Er Particles/Crystals 20 meq PO DAILY RF: 0 Primary Care Provider: Gera Snider III Referrals: Gera Snider III, MD [Primary Care Provider] - As soon as possible (Or responsible care provider; will need continued dosing of magnesium) Disposition Disposition: Home, Self Care
[2021-04-27 19:11] LABS: Anion Gap 5 (5-15); BUN 36 mg/dL (7-18); BUN/Creat Ratio 51.7 RATIO (10-20); Calcium,Total 7.6 mg/dL (8.5-10.1); Chloride 109 mmol/L (98-107); EST Glomerular Filtration Rate 89 mL/min (>60); Est Glom Filt Rate - Afr Amer 108 mL/min (>60); Estimated Creatinine Clearance 49.12 ml/min; Glucose 107 mg/dL (74-106); Magnesium 0.5 mg/dL (1.6-2.6); Potassium 4.7 mmol/L (3.5-5.1); Sodium Level 137 mmol/L (136-145)
[2021-04-27] MEDS: HYDROcodone Bitartrate/Apap 5/325 Tablet PO (19:37)
[2021-04-27 22:49] VITALS: BP 140/62; PULSE 92; RESP 12; O2SAT 99
== END 2021-04-28 00:05 | disposition skilled nursing facility (03) ==
PROVIDERS: Emergency Provider Emergency Medicine; PCP Family Medicine
DX: E83.42 Hypomagnesemia (principal); F17.210 Nicotine dependence, cigarettes, uncomplicated; J44.9 Chronic obstructive pulmonary disease, unspecified; I25.2 Old myocardial infarction; I50.9 Heart failure, unspecified; I25.10 Atherosclerotic heart disease of native coronary artery without angina pectoris; I11.0 Hypertensive heart disease with heart failure; E11.69 Type 2 diabetes mellitus with other specified complication; M86.9 Osteomyelitis, unspecified; K21.9 Gastro-esophageal reflux disease without esophagitis; G89.29 Other chronic pain; Z93.3 Colostomy status; Z95.1 Presence of aortocoronary bypass graft; Z79.4 Long term (current) use of insulin; Z79.82 Long term (current) use of aspirin; Z79.02 Long term (current) use of antithrombotics/antiplatelets; Z79.899 Other long term (current) drug therapy; Z86.73 Personal history of transient ischemic attack (TIA), and cerebral infarction without residual deficits; F32.9 Major depressive disorder, single episode, unspecified; F41.9 Anxiety disorder, unspecified
CPT/HCPCS: 80048; 83735; 96365; 96366; 99285; J7050; A4216

== ENCOUNTER → 2021-09-29 11:24 | Outpatient (CLI) | payer MEDICARE, MEDICAID, SELFPAY ==
[2021-09-29 11:58] VITALS: BP 117/38; PULSE 52; RESP 18; TEMP 35.7; O2SAT 94
[2021-09-29] MEDS: 0.9% NaCl Peripheral Flush Adult/Peds IV (12:03)
[2021-09-29 12:30] VITALS: BP 116/98; PULSE 54; RESP 16; TEMP 35.7; O2SAT 100
[2021-09-29 13:30] VITALS: BP 111/42; PULSE 61; RESP 16; TEMP 35.8; O2SAT 100
== END ==
PROVIDERS: Referring Provider Internal Medicine; Visit Provider Internal Medicine
DX: D64.9 Anemia, unspecified (principal)
CPT/HCPCS: 36415; 36430; 86850; 86900; 86901; 86920; 86922; J7040; P9016; A4216

== ENCOUNTER → 2021-11-23 14:21 | Outpatient (CLI) | payer MEDICARE, MEDICAID, SELFPAY ==
--- NOTE | 2021-11-23 14:26 | CT_ITS ---
EXAM: CT ABDOMEN AND PELVIS WITHOUT INTRAVENOUS CONTRAST CLINICAL INDICATION: VULVAR CANCER TECHNIQUE: Helically acquired images were obtained of the abdomen and pelvis without intravenous contrast. CTDIvol = ( 28.08 ) mGy, DLP = ( 1663.07 ) mGycm This CT exam was performed using one or more of the following dose reduction techniques: automated exposure control, adjustment of the mA and/or kV according to patient size, and/or use of iterative reconstruction technique. This report was created using [employer] report generation technology. COMPARISON: CT pelvis February 2021. FINDINGS: LOWER THORAX: Unremarkable. Lung bases are clear. No cardiomegaly. No significant pericardial effusion. ABDOMEN: LIVER: Unremarkable. Homogeneous. GALLBLADDER AND BILE DUCTS: Unremarkable. No calcified gallstones. No gallbladder distention or wall edema. No intra- or extrahepatic biliary ductal dilation. PANCREAS: Unremarkable. No focal cystic mass. SPLEEN: Unremarkable. Normal size without focal cystic or solid mass. ADRENALS: Unremarkable. No nodules. KIDNEYS AND URETERS: Exophytic bilateral renal cysts. No additional follow-up needed. Punctate calyceal calculi involving the kidneys bilaterally with no hydronephrosis. Normal renal size and position. STOMACH AND BOWEL: Left lower anterior abdominal wall ostomy status post partial colectomy. No stomach or bowel distention. No focal inflammatory change. Reirradiation joint versus osteomyelitis involving the right left parasymphyseal bones which show abnormal ill-defined lucencies. Possible abscess anterior to the left parasymphyseal bone measuring 4.5 x 1.9 cm PELVIS: APPENDIX: No evidence of acute appendicitis. BLADDER: Unremarkable. REPRODUCTIVE: Unremarkable as visualized. No mass. ABDOMEN and PELVIS: INTRAPERITONEAL SPACE: Unremarkable. No ascites or other fluid collection. No free air. BONES/JOINTS: Degenerative changes of spine and pelvis. No suspicious lytic or blastic abnormality. SOFT TISSUES: Unremarkable. No discrete abdominal or pelvic wall hernia. VASCULATURE: Unremarkable. Abdominal aorta is non-dilated. LYMPH NODES: Unremarkable. No enlarged lymph nodes. CT/Abdomen/Pelvis without Cont IMPRESSION: 1. Punctate calyceal calculi involving the kidneys bilaterally with no hydronephrosis. 2. No other acute or inflammatory disease or bowel obstruction. 3. Exophytic bilateral renal cysts. No additional follow-up needed of these cysts. Electronically Signed: Gordon Zapata MD at 3:47 EST ,
== END ==
DX: C51.9 Malignant neoplasm of vulva, unspecified (principal)
CPT/HCPCS: 74176

== ENCOUNTER 2021-12-21 14:04 | Inpatient (IN) | payer MEDICARE, MEDICAID, SELFPAY ==
[2021-12-21] VITALS (10 sets, daily range): BP systolic 98–149; BP diastolic 65–126; PULSE 109–117; RESP 17–28; TEMP 36.4–37.3; O2SAT 92–977; BMI 44.1
--- NOTE | 2021-12-21 14:21 | EKG12_ITS ---
Test Reason : Blood Pressure : / mmHG Vent. Rate : 112 BPM Atrial Rate : 112 BPM P-R Int : 156 ms QRS Dur : 128 ms QT Int : 398 ms P-R-T Axes : 065 -63 038 degrees QTc Int : 543 ms Sinus tachycardia with Premature supraventricular complexes Right bundle branch block Left anterior fascicular block Bifascicular block Inferior infarct (cited on or before 21-APR-2016) Abnormal ECG Confirmed by JOSELYN BHAT, MAYCOL ([id number]), sound editor TOREY DEVRIES ([id number]) on 12/23/2021 7:24:57 AM Referred By: Confirmed By:MORTEZA ALVES MD
--- NOTE | 2021-12-21 14:24 | EDS_ITS ---
HPI History of Present Illness Chief Complaint: Mental Status Change Informant: patient and EMS Onset/Context/Timing Onset: - (unclear but last seen normal A&Ox3 1 week ago) Context: - (unk) Timing: Continuous Quality: confused, hallucinating Current Severity: Severe Maximum Severity: Severe Worsened by: unk Relieved by: unk Associated Symptoms Associated Symptoms: denies except for a sore ulcer/wound on her sacrum Narrative Narrative: Patient was admitted to a custodial about 1 week ago, EMS states that the son reports that she was alert and oriented x3 at that time, he saw her today and she is very confused and hallucinating, and it is for that reason she is sent here today. Apparently according to EMS as well, custodial staff states she has been like this the whole time she has been here. Information that was obtained couple hours after the patient's arrival: Son states that she started getting like this around 2 days ago when her vancomycin was temporarily discontinued because of high peak/trough levels. Apparently she has been on vancomycin because of an infection in the pubic region which was not obvious on my exam, but she was admitted to [place] because of it. [facility] Medical History Anxiety Chest pain Chronic pain Colostomy in place Congestive heart failure (CHF) COPD (chronic obstructive pulmonary disease) Coronary artery disease Depression Guy catheter in place GERD (gastroesophageal reflux disease) Hearing loss, left Hearing loss, right Hypertension Osteomyelitis due to secondary diabetes Past heart attack Sleep apnea Smoker Smoker Stroke/cerebrovascular accident Stroke/cerebrovascular accident TIA (transient ischemic attack) Vulva cancer Wound cellulitis after surgery Home Medications atorvastatin 80 mg PO QHS 03/24/15 [History Last Taken 12/20/21] metoprolol tartrate 25 mg PO BID 03/24/15 [History Last Taken 12/21/21] clopidogrel 75 mg PO DAILY 12/02/20 [History Last Taken 12/20/21] amitriptyline 50 mg PO QHS 01/05/21 [History Last Taken 12/20/21] duloxetine 60 mg PO DAILY 01/05/21 [History Last Taken 12/21/21] insulin glargine 65 units SC QHS 01/05/21 [History Last Taken 12/20/21] hydrocodone-acetaminophen [[place]] 2 tab PO QHS 04/27/21 [History Last Taken 12/20/21] aspirin [Aspirin Low-Strength] 81 mg PO DAILY 12/21/21 [History Last Taken 12/21/21] calcium carbonate-vitamin D3 [Calcium 500 + D] 1 tab PO BID 12/21/21 [History Last Taken 12/21/21] citalopram 40 mg PO SUMOTUTHFRSA 12/21/21 [History Last Taken 12/20/21] diphenhydramine HCl 50 mg PO Q8H PRN 12/21/21 [History Last Taken 12/18/21] ertapenem 1 g IV Q24H 12/21/21 [History Last Taken 12/20/21] erythromycin 1 applic EACH EYE QHS 12/21/21 [History Last Taken 12/19/21] ferrous sulfate, dried 159 mg PO DAILY 12/21/21 [History Last Taken 12/21/21] fluconazole [Diflucan] 150 mg PO WE 12/21/21 [History Last Taken 12/21/21] fluticasone propionate 2 spray INTRANASAL DAILY 12/21/21 [History Last Taken 12/21/21] hydrocodone-acetaminophen [[place]] 1 tab PO Q4H PRN 12/21/21 [History Last Taken 12/18/21] insulin lispro [Humalog KwikPen Insulin] 10 unit SUBCUT BID 12/21/21 [History Last Taken 12/21/21] insulin regular human [Humulin R Regular U-100 Insuln] See Protocol SUBCUT ACHS 12/21/21 [History Last Taken 12/21/21] lisinopril 10 mg PO DAILY 12/21/21 [History Last Taken 12/21/21] nystatin 1 applic TOPICAL BID 12/21/21 [History Last Taken 12/21/21] oxybutynin chloride 10 mg PO DAILY 12/21/21 [History Last Taken 12/20/21] oxycodone 5 mg PO Q4H PRN 12/21/21 [History Last Taken 12/17/21] sodium chloride 0.9 % (flush) [Normal Saline Flush] 10 ml IV Q12H 12/21/21 [History Last Taken 12/20/21] tramadol 50 mg PO Q8H PRN 12/21/21 [History Last Taken Unknown] vancomycin in 0.9 % sodium chl 1 g IV Q12H 12/21/21 [History Last Taken 12/19/21] Allergy/AdvReac Type Severity Reaction Status Date / Time iodine Allergy Rash Verified 04/27/21 18:10 povidone-iodine Allergy Itching Verified 04/27/21 18:10 [From Betadine] prednisone Allergy tiny Verified 04/27/21 18:10 mouth ulcers Family History Other Cancer Diabetes Heart disease Surgical History H/O foot surgery History of cholecystectomy History of cholecystectomy Hx of CABG Hx of CABG (~01/2015) Previous back surgery Social History Smoking Status: Unknown if ever smoked ROS ROS ED Review of Systems ROS Unobtainable: due to mental status ENT ENT ED: Denies ear pain Cardiovascular Cardiovascular: Denies chest pain Gastrointestinal Gastrointestinal: Denies abdominal pain or nausea Musculoskeletal Musculoskeletal: Denies back pain, myalgias or neck pain Integumentary Reports as per HPI and wounds EXAM Physical Exam Const Vital Signs: 12/21/21 14:07 12/21/21 14:14 12/21/21 14:38 Temperature 97.6 F L 97.6 F L 98.2 F Temperature Source Temporal Temporal Temporal Pulse Rate 115 H 115 H Respiratory Rate 25 H 25 H Blood Pressure 128/97 H 128/97 H Blood Pressure Mean 107 107 Pulse Ox 95 95 Oxygen Delivery Method Room Air Room Air 12/21/21 15:04 12/21/21 16:00 12/21/21 18:00 Temperature 98.2 F 98.2 F 98.1 F Temperature Source Temporal Temporal Temporal Pulse Rate 112 H 112 H 109 H Respiratory Rate 22 H 25 H 28 H Blood Pressure 122/92 H 124/88 H 145/98 H Blood Pressure Mean 102 100 113 Pulse Ox 977 92 95 Oxygen Delivery Method Room Air Room Air Room Air 12/21/21 19:00 12/21/21 20:00 12/21/21 21:00 Temperature Temperature Source Pulse Rate 112 H 112 H 114 H Respiratory Rate 23 H 17 19 H Blood Pressure 147/106 H 149/126 H 113/65 Blood Pressure Mean 119 133 81 Pulse Ox 94 98 93 Oxygen Delivery Method Room Air Room Air Room Air 12/21/21 22:18 Temperature 99.2 F H Temperature Source Axillary Pulse Rate 117 H Respiratory Rate 24 H Blood Pressure 98/86 H Blood Pressure Mean 90 Pulse Ox 94 Oxygen Delivery Method Room Air Positive well nourished and well developed General Appearance ED: well developed and NAD Nutritional Appearance: morbidly obese HEENT Reports moist mucous membranes normocephalic and atraumatic; Negative for trauma Eyes PERRL and EOMs intact bilaterally Neck full ROM and supple Resp normal respiratory effort and clear to auscultation bilaterally Cardio regular rate, regular rhythm and no murmurs Rate: other Other Details: Mildly tachycardic GI non-tender and non-distended GI Narrative: Suprapubic catheter in place with benign site. Ileostomy in left lower quadrant benign site, no stool in the bag at this time. No bleeding, the ostomy itself appears healthy. Auscultation: normoactive bowel sounds Palpation: soft Back/Spine no CVA tenderness General Back: other FROM Extremity normal to inspection General Extremety ED: Negative for edema, pulses abnormal or tenderness General Extremity: Negative for edema or pulses abnormal Neuro CN's II-XII intact bilaterally and no sensory deficits noted Neuro Narrative: Confused keenly alert Sensorium / Orientation: awake and alert Motor Exam: strength 5/5 throughout Psych Psych Narrative: Mild psychomotor agitation but cooperative, fidgeting. Unclear if hallucinating but delusional to some degree; when I asked her what her name is, she states something about [employer]. However when the nurse tells her where she is, she understands the city/town in relation to other surrounding areas and tells nurse something about a grocery store undergoing renovations in a local area which is accurate. Skin no rashes or lesions noted Skin Narrative: Ulcerated wound on the sacrum without signs of infection, discharge, or abscess. Granulation tissue present. Extremely old-appearing d ressing dangling from it. MDM MDM MDM Narrative Medical decision making narrative: I assisted nurses and changing the dressing on the patient's sacral decubitus wound. There is no active discharge or obvious appearance for infection so she underwent septic work-up for other potential source. My interpretation 1 view chest x-ray negative for any acute abnormality. Radiology in agreement. EKG has artifact, shows bifascicular block but no acute injury pattern. The rest of the exam is unremarkable. Patient had a significant delay in completing the work-up due to waiting on urinalysis results. They do not show acute infection. Unknown etiology of the patient's altered mental status. Differential includes psychiatric illness, also unusual CUSTODIAN primary etiologies such as stroke. She is not examining like meningitis. If this is a cerebrovascular phenomenon, the patient has not a TPA or thrombectomy candidate, so I do not think she needs CT angiography at this time. Total NIH as follows: NIH Stroke Scale/Score (NIHSS) from [employer] on 12/21/2021 All calculations should be rechecked by clinician prior to use RESULT SUMMARY: 9 points NIH Stroke Scale INPUTS: 1A: Level of consciousness ?> 0 = Alert; keenly responsive 1B: Ask month and age ?> 2 = 0 questions right 1C: 'Blink eyes' & 'squeeze hands' ?> 0 = Performs both tasks 2: Horizontal extraocular movements ?> 0 = Normal 3: Visual prasad ?> 0 = No visual loss 4: Facial palsy ?> 0 = Normal symmetry 5A: Left arm motor drift ?> 0 = No drift for 10 seconds 5B: Right arm motor drift ?> 0 = No drift for 10 seconds 6A: Left leg motor drift ?> 3 = No effort against gravity 6B: Right leg motor drift ?> 3 = No effort against gravity 7: Limb Ataxia ?> 0 = No ataxia 8: Sensation ?> 0 = Normal; no sensory loss 9: Language/aphasia ?> 0 = Normal; no aphasia 10: Dysarthria ?> 1 = Mild-moderate dysarthria: slurring but can be understood 11: Extinction/inattention ?> 0 = No abnormality After discussing with the hospitalist and obtaining CT head that is negative, we evaluated the patient's vulva together after seeing records showing that she is apparently being treated with antibiotics for a vulvar abscess. Her vulva is very tender, diffusely erythematous, firm, and there is discharge emanating from the vagina that looks clear like urine although she has a suprapubic catheter in that is flowing. Differential involves infection, abscess, fistula, and for this reason we are starting with an IV contrasted CT of the pelvis to further evaluate. We have been waiting for records to arrive from [place] where apparently she was admitted for this infection, and eventually we did receive r ecords showing she was being treated for a vulvar infection and had an MRI showing suggestion of cellulitis plus or minus abscesses and pubic bone osteomyelitis; they recommended IV Invanz and vancomycin for total of 4 weeks and has had treatment for 1 week so far, and she was placed in a custodial because she needed regular vancomycin peaks and troughs. The etiology of her psychosis/hallucinations/encephalopathy is unknown, and since her vulva appears erythematous, tender, possibly still infected, we went ahead and obtained the above study. 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 She just saw urology at [place] during her recent admission there. I did speak w/ [place] earlier, they do not have any beds at this time, but they have put the patient on the wait list with the expectation that they will have an available bed and will be able to accept her at some point tomorrow. Discussed with hospitalist for temporary admission and further medical care at this time Lab Data Attestation: I reviewed the patient's lab results. Labs: Laboratory Results - last 24 hr 12/21/21 12/21/21 12/21/21 13:35 13:35 13:35 WBC 9.6 RBC 3.86 L Hgb 10.0 L Hct 31.6 L MCV 81.9 MCH 25.9 L MCHC 31.6 L RDW Std Deviation 51.0 H RDW Coeff of Ash 17.1 H Plt Count 386 MPV 9.6 Immature Gran % (Auto) 0.600 Neut % (Auto) 64.2 Lymph % (Auto) 20.2 [place] % (Auto) 10.1 H Eos % (Auto) 4.4 Baso % (Auto) 0.5 Absolute Neuts (auto) 6.2 Absolute Lymphs (auto) 1.95 Nucleated RBC % 0 Sodium 138 Potassium 4.0 Chloride 102 Carbon Dioxide 32.0 Anion Gap 4 L BUN 24 H Creatinine 1.16 H Estim Creat Clear Calc 42.35 Est GFR (MDRD) Af Amer 60 Est GFR (MDRD) Non-Af 49 L BUN/Creatinine Ratio 20.7 H Glucose 126 H Lactic Acid 1.9 Calcium 10.2 H Total Bilirubin 0.40 AST 21 ALT 21 Alkaline Phosphatase 81 Total Protein 8.3 H Albumin 2.7 L Globulin 5.6 H Albumin/Globulin Ratio 0.5 L Urine Color Urine Clarity Urine pH Ur Specific [place] Urine Protein Urine Glucose (UA) Urine Ketones Urine Occult Blood Urine Nitrite Urine Bilirubin Urine Urobilinogen Ur Leukocyte Esterase Urine RBC Urine WBC Ur Squamous Epith Cells Urine Bacteria Urine Mucus 12/21/21 18:55 WBC RBC Hgb Hct MCV MCH MCHC RDW Std Deviation RDW Coeff of Ash Plt Count MPV Immature Gran % (Auto) Neut % (Auto) Lymph % (Auto) [place] % (Auto) Eos % (Auto) Baso % (Auto) Absolute Neuts (auto) Absolute Lymphs (auto) Nucleated RBC % Sodium Potassium Chloride Carbon Dioxide Anion Gap BUN Creatinine Estim Creat Clear Calc Est GFR (MDRD) Af Amer Est GFR (MDRD) Non-Af BUN/Creatinine Ratio Glucose Lactic Acid Calcium Total Bilirubin AST ALT Alkaline Phosphatase Total Protein Albumin Globulin Albumin/Globulin Ratio Urine Color Yellow Urine Clarity Clear Urine pH 6.0 Ur Specific [place] 1.015 Urine Protein 100 H Urine Glucose (UA) Normal Urine Ketones Negative Urine Occult Blood 50 H Urine Nitrite Negative Urine Bilirubin Negative Urine Urobilinogen Normal Ur Leukocyte Esterase 100 H Urine RBC 0-5 SEEN Urine WBC 0-5 SEEN Ur Squamous Epith Cells 0 SEEN Urine Bacteria 0 SEEN Urine Mucus 0 SEEN Radiography Diagnostic Testing: Clinical Impression(s) from Imaging Studies Chest X-Ray 12/21/21 15:50 IMPRESSION: No acute findings. Stable examination since 02/10/2021. Electronically Signed: Miquel Oconnor, at 16:01 EDT Reading Location ID and State: [address] [place] [address] Tel , Service support , Brain CT 12/21/21 20:50 IMPRESSION: Chronic involutional changes without evidence of acute intracranial or calvarial abnormality. There is no major interval change. Electronically Signed: Jhonny Conrad DO at 21:38 EDT Reading Location ID and State: [facility] / [place] Tel [phone], Service support , Pelvis CT 12/21/21 22:05 IMPRESSION: Findings consistent with fistulous tract between the urinary bladder and the vagina. Individualized dose optimization techniques were used for this CT. at 0012 Reported and signed by: Fabrizio Ramirez MD Electronically Signed: Fabrizio Ramirez MD at 0:11 EDT , EKG Initial EKG: Attestation: I personally reviewed and interpreted this EKG as follows: Interpretation: Sinus Rhythm, No Acute Injury Pattern, RBBB and LAFB Prior EKG tracings: available for review Prior: Unchanged Discharge Plan Dx/Rx/DC Orders Clinical Impression: Encephalopathy acute, Stage III pressure ulcer of sacral region, Osteomyelitis of symphysis pubis, Vulval cellulitis, Vesicovaginal fistula Disposition Disposition: Acute Care Hospital [facility]
[2021-12-21 14:53] LABS: Absolute Lymphocyte Count 1.95 X10^3/uL (0.83-4.51); Absolute Neutrophil Count 6.2 X10^3/uL (2.0-7.7); Basophil# 0.05 X10^3/uL; Basophil% 0.5 % (0-1); Eosinophil# 0.42 X10^3/uL; Eosinophils% 4.4 % (0-5); Hematocrit 31.6 % (37-47); Lymphocyte # 1.95 X10^3/ul (0.83-4.51); Lymphocyte % 20.2 % (19-41); Mean Corp Hgb Conc 31.6 g/dL (32-36); Mean Corpuscular Hgb 25.9 pg (27.0-32.0); Mean Corpuscular Volume 81.9 fL (81-99); Mean Platelet Vol. 9.6 fl (6.2-12.0); Monocyte# 0.97 X10^3/uL; Monocyte% 10.1 % (0-10); NRBC Flagged by Analyzer 0 % (0-5); Neutrophil # 6.19 X10^3/uL (2.7-7.7); Neutrophil % 64.2 % (47-70); Platelet Count 386 K/mm3 (150-450); RBC Distribution Width CV 17.1 % (11.6-14.6); Red Blood Count 3.86 M/mm3 (4.2-5.4); White Blood Count 9.6 K/mm3 (4.4-11.0)
[2021-12-21 15:07] LABS: ALB/GLOB Ratio 0.5 RATIO (0.9-2.4); AST(SGOT) 21 U/L (15-37); Alanine Aminotransfer ALT/SGPT 21 U/L (13-56); Albumin, Serum 2.7 g/dL (3.2-5.0); Alkaline Phosphatase 81 U/L (45-117); Anion Gap 4 (5-15); BUN 24 mg/dL (7-18); BUN/Creat Ratio 20.7 RATIO (10-20); Calcium,Total 10.2 mg/dL (8.5-10.1); Chloride 102 mmol/L (98-107); Creatinine, Serum 1.16 mg/dL (0.55-1.02); EST Glomerular Filtration Rate 49 mL/min (>60); Est Glom Filt Rate - Afr Amer 60 mL/min (>60); Estimated Creatinine Clearance 42.35 ml/min; Globulin 5.6 g/dL (2.2-4.2); Glucose 126 mg/dL (74-106); Protein, Total 8.3 g/dL (6.4-8.2); Sodium Level 138 mmol/L (136-145)
[2021-12-21 15:17] LABS: Lactic Acid 1.9 mmol/L (0.4-1.9)
--- NOTE | 2021-12-21 15:50 | RAD_ITS ---
INDICATION: altered MS EXAMINATION/TECHNIQUE: X-RAY - XR Chest 1 View COMPARISON: Chest rated graft from 02/10/2021. FINDINGS: Support devices: None. No focal consolidations, effusions, or sizable pneumothorax. Heart size is stable. Stable mediastinal postoperative changes. No acute findings in the bones or soft tissues. RAD/Chest 1 View (Portable) IMPRESSION: No acute findings. Stable examination since 02/10/2021. Electronically Signed: Miquel Oconnor, at 16:01 EDT ,
--- NOTE | 2021-12-21 15:56 | ED.RN ---
Spoke with Bill, patient son and healthcare POA. Patient was recently discharged from [facility] to [facility] for new placement of suprapubic catheter placement from a pelvic abscess. Patient was to be on vancomycin, which was discontinued on 12/19 due to high level's per son. Patient had this change of mental status and hallucinations beginning on 12/19.
--- NOTE | 2021-12-21 16:04 | ED.RN ---
Patient continues to have verbal and auditory hallucinations, reaching for things that are not there and speaking to people who are not present. Patient continues to be A&Ox1 and will answer some questions appropriately.
[2021-12-21 19:02] LABS: Bacteria 0 SEEN /hpf (None Seen); Mucous, Urine 0 SEEN /hpf (<or=2+); Squamous Epithelial Cells - UA 0 SEEN /hpf (5-10)
[2021-12-21 19:06] LABS: Color, Urine Yellow (Yellow); Glucose, Dipstick Normal (Normal); Ketone-Dipstick Negative (Negative); Leukocyte Esterase-Dipstick 100 /ul (Negative); Nitrite-Dipstick Negative (Negative); Occult Blood-Urine 50 /ul (Negative); Protein-Dipstick 100 mg/dl (Negative); Specific Gravity, Urine 1.015 (1.002-1.030); Urine Bilirubin Dipstick Negative (Negative); Urine Clarity Clear (Clear); Urine Urobilinogen Normal (Normal)
[2021-12-21 19:12] LABS: Red Blood Cells-Urine 0-5 SEEN /hpf (0-5); White Blood Cells 0-5 SEEN /hpf (0-5)
--- NOTE | 2021-12-21 20:50 | CT_ITS ---
STUDY: CT BRAIN WITHOUT CONTRAST REASON FOR EXAM: Female, 66 years old. Altered mental status. RADIATION DOSAGE (If Supplied By Facility): CTDIvol = ( 44.99 ) mGy, DLP = ( 812.98 ) mGycm TECHNIQUE: Transaxial CT imaging of the brain was performed without administration of intravenous contrast material. Individualized dose optimization techniques were used for this CT. COMPARISON: 01/05/2021. FINDINGS: Normal soft tissue structures. Normal calvarium. There is mild cerebral atrophy with widening of the extra-axial spaces and ventricular dilatation. There are areas of decreased attenuation within the white matter tracts of the supratentorial brain, consistent with microvascular disease changes. Normal basal ganglia and thalami. Normal brainstem. Normal cerebellum. There is no intracranial hemorrhage. There are no findings of an acute ischemic infarction. Normal visualized paranasal sinuses. CT/Brain/Head without Contrast IMPRESSION: Chronic involutional changes without evidence of acute intracranial or calvarial abnormality. There is no major interval change. Electronically Signed: Jhonny Conrad DO at 21:38 EDT Reading Location ID and State: [facility] Tel [phone], Service support ,
--- NOTE | 2021-12-21 22:05 | CT_ITS ---
HISTORY: vulva infection/discharge/pain EXAMINATION: CT Pelvis W/ Contrast Injection TECHNIQUE:Routine noncontrast bone CT protocol was performed of the pelvis. 2-D reformats were performed by the technologist. A radiation dose optimization technique was used for this scan. IV Contrast dosage and agent: 100mL [id number] COMPARISON: 11/23/21 FINDINGS: SOFT TISSUES: Bladder drained by a suprapubic catheter. Left lower quadrant ileostomy again noted. Delayed images show small amount of contrast in the bladder lumen as well as in the vagina, passing onto the perineum. BONES/JOINTS: No acute fracture or subluxation. Normal alignment. Preservation of the joint spaces. No sclerotic or destructive changes. CT/Pelvis WITH IV Contrast IMPRESSION: Findings consistent with fistulous tract between the urinary bladder and the vagina. Individualized dose optimization techniques were used for this CT. at 0012 Reported and signed by: Fabrizio Ramirez MD Electronically Signed: Fabrizio Ramirez MD at 0:11 EDT ,
[2021-12-21] MEDS: Famotidine 200 MG/20 ML MDV 20 MG in 0.9% Normal Saline (Pres. free 8 ML 300 MG IV (22:29)
[2021-12-21] MEDS: DiphenhydrAMINE 50 MG/ML Syringe 25 MG IV (22:29)
[2021-12-21] MEDS: MethylPREDNISolone 125 MG/2 ML Vial IV (22:29)
[2021-12-22] VITALS (20 sets, daily range): BP systolic 113–185; BP diastolic 58–97; PULSE 96–115; RESP 12–24; TEMP 36.6–36.8; O2SAT 70–100; BMI 41.5
--- NOTE | 2021-12-22 01:21 | PCM.HP.STD ---
Documented by User: Anju Jack NP-C 12/22/21 01:39 HPI - General General Date of Admission: 12/22/21 Date of Service: 12/22/21 Chief Complaint: Encephalopathy, vesicovaginal fistula HPI Narrative [place] JIANG, is a 66 F who presents from [facility] with reports of altered mental status. Patient is hallucinating and not making sense at times. Patient also noted to be restless in ER bed. Patient was recently at [facility] where a suprapubic catheter was placed. At that time patient was diagnosed with vulval cellulitis as well as osteomyelitis of the symphysis pubis. Patient was initiated on Invanz and vancomycin and sent to [facility] for antibiotic treatment and blood level monitoring of the vancomycin. Per patient's son patient had been herself when he saw her 2 days ago however over the past 2 days he has had an increasingly hard time getting a hold of her and today she was noted to be not herself. Patient also has a history of vulval cancer with radiation. Upon presentation to ER patient was noted to have notable amounts of discharge and drainage to vulva, bilateral groins and under her abdominal fold as well as a saturated dressing surrounding her suprapubic catheter. Suprapubic catheter and dressing were changed in ER. Patient also has a medical history that includes diabetes mellitus type 2, chronic anemia, decubitus ulcer to her coccyx, coronary artery disease, COPD, depression, neuropathy. [facility] Medical History Anxiety Chest pain Chronic pain Colostomy in place Congestive heart failure (CHF) COPD (chronic obstructive pulmonary disease) Coronary artery disease Depression Guy catheter in place GERD (gastroesophageal reflux disease) Hearing loss, left Hearing loss, right Hypertension Osteomyelitis due to secondary diabetes Past heart attack Sleep apnea Smoker Smoker Stroke/cerebrovascular accident Stroke/cerebrovascular accident TIA (transient ischemic attack) Vulva cancer Wound cellulitis after surgery Home Medications atorvastatin 80 mg PO QHS 03/24/15 [History Last Taken 12/20/21] metoprolol tartrate 25 mg PO BID 03/24/15 [History Last Taken 12/21/21] clopidogrel 75 mg PO DAILY 12/02/20 [History Last Taken 12/20/21] amitriptyline 50 mg PO QHS 01/05/21 [History Last Taken 12/20/21] duloxetine 60 mg PO DAILY 01/05/21 [History Last Taken 12/21/21] insulin glargine 65 units SC QHS 01/05/21 [History Last Taken 12/20/21] hydrocodone-acetaminophen [[place]] 2 tab PO QHS 04/27/21 [History Last Taken 12/20/21] aspirin [Aspirin Low-Strength] 81 mg PO DAILY 12/21/21 [History Last Taken 12/21/21] calcium carbonate-vitamin D3 [Calcium 500 + D] 1 tab PO BID 12/21/21 [History Last Taken 12/21/21] citalopram 40 mg PO SUMOTUTHFRSA 12/21/21 [History Last Taken 12/20/21] diphenhydramine HCl 50 mg PO Q8H PRN 12/21/21 [History Last Taken 12/18/21] ertapenem 1 g IV Q24H 12/21/21 [History Last Taken 12/20/21] erythromycin 1 applic EACH EYE QHS 12/21/21 [History Last Taken 12/19/21] ferrous sulfate, dried 159 mg PO DAILY 12/21/21 [History Last Taken 12/21/21] fluconazole [Diflucan] 150 mg PO WE 12/21/21 [History Last Taken 12/21/21] fluticasone propionate 2 spray INTRANASAL DAILY 12/21/21 [History Last Taken 12/21/21] hydrocodone-acetaminophen [[place]] 1 tab PO Q4H PRN 12/21/21 [History Last Taken 12/18/21] insulin lispro [Humalog KwikPen Insulin] 10 unit SUBCUT BID 12/21/21 [History Last Taken 12/21/21] insulin regular human [Humulin R Regular U-100 Insuln] See Protocol SUBCUT ACHS 12/21/21 [History Last Taken 12/21/21] lisinopril 10 mg PO DAILY 12/21/21 [History Last Taken 12/21/21] nystatin 1 applic TOPICAL BID 12/21/21 [History Last Taken 12/21/21] oxybutynin chloride 10 mg PO DAILY 12/21/21 [History Last Taken 12/20/21] oxycodone 5 mg PO Q4H PRN 12/21/21 [History Last Taken 12/17/21] sodium chloride 0.9 % (flush) [Normal Saline Flush] 10 ml IV Q12H 12/21/21 [History Last Taken 12/20/21] tramadol 50 mg PO Q8H PRN 12/21/21 [History Last Taken Unknown] vancomycin in 0.9 % sodium chl 1 g IV Q12H 12/21/21 [History Last Taken 12/19/21] Allergy/AdvReac Type Severity Reaction Status Date / Time iodine Allergy Rash Verified 04/27/21 18:10 povidone-iodine Allergy Itching Verified 04/27/21 18:10 [From Betadine] prednisone Allergy tiny Verified 04/27/21 18:10 mouth ulcers Family History Other Cancer Diabetes Heart disease Surgical History H/O foot surgery History of cholecystectomy History of cholecystectomy Hx of CABG Hx of CABG (~01/2015) Previous back surgery Social History Smoking Status: Unknown if ever smoked ROS Constitutional Constitutional: Denies anorexia, chills, fatigue, fever(s), malaise or weakness Cardiovascular Cardiovascular: Denies chest pain, claudication, orthopnea or syncope Respiratory/Chest Respiratory/Chest: Denies cough, shortness of breath at rest, shortness of breath with exertion or wheezing Gastrointestinal Gastrointestinal: Denies abdominal pain, constipation, diarrhea, nausea or vomiting Genitourinary Genitourinary: Reports itching and other Details: Presence of suprapubic catheter ; Denies dysuria Musculoskeletal Musculoskeletal: Denies back pain, extremity pain, joint pain, joint stiffness, joint swelling or limited range of motion Integumentary Integumentary: Denies dry skin Neurologic Neurologic: Reports behavior changes and confusion; Denies abnormal gait or abnormal speech Psychiatric Psychiatric: Denies anxiety or depression Endocrine Endocrinology: Denies change in body appearance Hematologic/Lymphatic Hematologic/Lymphatic: Reports anemia Vital Signs Vital Signs Vital Signs: 12/21/21 14:07 12/21/21 14:14 12/21/21 14:38 Temperature 97.6 F L 97.6 F L 98.2 F Temperature Source Temporal Temporal Temporal Pulse Rate 115 H 115 H Respiratory Rate 25 H 25 H Blood Pressure 128/97 H 128/97 H Blood Pressure Mean 107 107 Pulse Ox 95 95 Oxygen Delivery Method Room Air Room Air 12/21/21 15:04 12/21/21 16:00 12/21/21 18:00 Temperature 98.2 F 98.2 F 98.1 F Temperature Source Temporal Temporal Temporal Pulse Rate 112 H 112 H 109 H Respiratory Rate 22 H 25 H 28 H Blood Pressure 122/92 H 124/88 H 145/98 H Blood Pressure Mean 102 100 113 Pulse Ox 977 92 95 Oxygen Delivery Method Room Air Room Air Room Air 12/21/21 19:00 12/21/21 20:00 12/21/21 21:00 Temperature Temperature Source Pulse Rate 112 H 112 H 114 H Respiratory Rate 23 H 17 19 H Blood Pressure 147/106 H 149/126 H 113/65 Blood Pressure Mean 119 133 81 Pulse Ox 94 98 93 Oxygen Delivery Method Room Air Room Air Room Air 12/21/21 22:18 Temperature 99.2 F H Temperature Source Axillary Pulse Rate 117 H Respiratory Rate 24 H Blood Pressure 98/86 H Blood Pressure Mean 90 Pulse Ox 94 Oxygen Delivery Method Room Air Weight Weight: 265 lb 3.457 oz Body Mass Index (BMI) 44.1 Physical Exam Const General Appearance: disheveled Orientation / Consciousness: confused and disoriented Exam Limitations: altered mental status HEENT normocephalic and head/scalp atraumatic Eyes conjunctivae normal and no scleral icterus Neck supple General: trachea midline Lymph Lymphatic: no lymphadenopathy noted Resp normal respiratory effort, normal air movement and clear to auscultation bilaterally Cardio regular rate, regular rhythm, S1 normal heart sound, S2 normal heart sound and peripheral pulses 2+ throughout Rate: tachycardic GI normal to inspection, nondistended, normoactive bowel sounds, soft to palpation and non-tender GI Narrative: Suprapubic area firm, warm, red. Large amount of white foul-smelling discharge noted to vulvar area as well as groin and abdominal folds Extremity normal capillary refill and no clubbing, cyanosis or edema General Extremity: no tenderness to palpation of joints or extremities Skin General Skin Exam: turgor normal Lesions: no lesions Rashes: no rashes Wounds: wounds noted Neuro no focal motor deficits and no sensory deficits noted Speech: speech normal Motor Exam: Negative for general weakness Psych Appearance: unkempt Attitude: bizarre Thought Process: incoherent and confused Thought Content: hallucination(s) Results Lab / Micro Data Result Diagrams: 12/21/21 13:35 12/21/21 13:35 Labs: Laboratory Results - last 24 hr 12/21/21 13:35: WBC 9.6, RBC 3.86 L, Hgb 10.0 L, Hct 31.6 L, MCV 81.9, MCH 25.9 L, MCHC 31.6 L, RDW Std Deviation 51.0 H, RDW Coeff of Ash 17.1 H, Plt Count 386, MPV 9.6, Immature Gran % (Auto) 0.600, Neut % (Auto) 64.2, Lymph % (Auto) 20.2, [place]ard % (Auto) 10.1 H, Eos % (Auto) 4.4, Baso % (Auto) 0.5, Absolute Neuts (auto) 6.2, Absolute Lymphs (auto) 1.95, Nucleated RBC % 0 12/21/21 13:35: Sodium 138, Potassium 4.0, Chloride 102, Carbon Dioxide 32.0, Anion Gap 4 L, BUN 24 H, Creatinine 1.16 H, Estim Creat Clear Calc 42.35, Est GFR (MDRD) Af Amer 60, Est GFR (MDRD) Non-Af 49 L, BUN/Creatinine Ratio 20.7 H, Glucose 126 H, Calcium 10.2 H, Total Bilirubin 0.40, AST 21, ALT 21, Alkaline Phosphatase 81, Total Protein 8.3 H, Albumin 2.7 L, Globulin 5.6 H, Albumin/Globulin Ratio 0.5 L 12/21/21 13:35: Lactic Acid 1.9 12/21/21 18:55: Urine Color Yellow, Urine Clarity Clear, Urine pH 6.0, Ur Specific [place] 1.015, Urine Protein 100 H, Urine Glucose (UA) Normal, Urine Ketones Negative, Urine Occult Blood 50 H, Urine Nitrite Negative, Urine Bilirubin Negative, Urine Urobilinogen Normal, Ur Leukocyte Esterase 100 H, Urine RBC 0-5 SEEN, Urine WBC 0-5 SEEN, Ur Squamous Epith Cells 0 SEEN, Urine Bacteria 0 SEEN, Urine Mucus 0 SEEN Radiology Impression Chest X-Ray 12/21/21 15:50 IMPRESSION: No acute findings. Stable examination since 02/10/2021. Electronically Signed: Miquel Oconnor, at 16:01 EDT , Brain CT 12/21/21 20:50 IMPRESSION: Chronic involutional changes without evidence of acute intracranial or calvarial abnormality. There is no major interval change. Electronically Signed: Jhonny Conrad DO at 21:38 EDT , Pelvis CT 12/21/21 22:05 IMPRESSION: Findings consistent with fistulous tract between the urinary bladder and the vagina. Individualized dose optimization techniques were used for this CT. at 0012 Reported and signed by: Fabrizio Ramirez MD Electronically Signed: Fabrizio Ramirez MD at 0:11 EDT , Assessment & Plan Assessment/Plan (1) Encephalopathy acute: (2) Vesicovaginal fistula: (3) Vulval cellulitis: (4) Osteomyelitis of symphysis pubis: PLAN: 1. Acute encephalopathy -Likely secondary to infection as patient's vancomycin was held for multiple days secondary to elevated vancomycin trough -Admit to PCU -Will hold all medications that may contribute to encephalopathy including all narcotic pain medications at this time -CBC and BMP -PT and OT to eval and treat -Normal saline at 75 mL/h 2. Vulval cellulitis with osteomyelitis of the symphysis pubis and vesicovaginal fistula -Continue ertapenem and vancomycin -Vancomycin trough ordered -ER physician contacted [facility] as patient was recently there for her suprapubic catheter placement. [facility] states they have no beds we will will put patient on the waiting list with hopes that patient will get bed placement soon -Intake and output -Maintain suprapubic catheter and continue oxybutynin -Encourage good kennedy-care 3. Sacral wound -Consult wound nurse -Wound redressed in ER, maintain current dressing pending wound nurse evaluation -Did not appear infected upon evaluation 4. Diabetes mellitus type 2 -Continue patient's home medication regimen of Lantus and twice daily insulin lispro -ACH S blood sugars with sliding scale insulin ordered -Cardiac calorie controlled diet ordered 5. Hypertension -Patient slightly hypotensive upon evaluation in ER, will hold home BP medications at this time -Vital signs per protocol 6. Hyperlipidemia -Continue atorvastatin 7. CAD Continue Plavix and aspirin DVT prophylaxis-SCDs This patient was seen by LAURA GuidryC under the supervision of Dr. Avalos. 34 minutes spent in clinical coordination of patient's plan of care. Documented by User: Dr. Maurice Avalos MD 12/22/21 02:28 HPI - General General Date of Admission: 12/22/21 [facility] Medical History Anxiety Chest pain Chronic pain Colostomy in place Congestive heart failure (CHF) COPD (chronic obstructive pulmonary disease) Coronary artery disease Depression Guy catheter in place GERD (gastroesophageal reflux disease) Hearing loss, left Hearing loss, right Hypertension Osteomyelitis due to secondary diabetes Past heart attack Sleep apnea Smoker Smoker Stroke/cerebrovascular accident Stroke/cerebrovascular accident TIA (transient ischemic attack) Vulva cancer Wound cellulitis after surgery Home Medications atorvastatin 80 mg PO QHS 03/24/15 [History Last Taken 12/20/21] metoprolol tartrate 25 mg PO BID 03/24/15 [History Last Taken 12/21/21] clopidogrel 75 mg PO DAILY 12/02/20 [History Last Taken 12/20/21] amitriptyline 50 mg PO QHS 01/05/21 [History Last Taken 12/20/21] duloxetine 60 mg PO DAILY 01/05/21 [History Last Taken 12/21/21] insulin glargine 65 units SC QHS 01/05/21 [History Last Taken 12/20/21] hydrocodone-acetaminophen [[place]] 2 tab PO QHS 04/27/21 [History Last Taken 12/20/21] aspirin [Aspirin Low-Strength] 81 mg PO DAILY 12/21/21 [History Last Taken 12/21/21] calcium carbonate-vitamin D3 [Calcium 500 + D] 1 tab PO BID 12/21/21 [History Last Taken 12/21/21] citalopram 40 mg PO SUMOTUTHFRSA 12/21/21 [History Last Taken 12/20/21] diphenhydramine HCl 50 mg PO Q8H PRN 12/21/21 [History Last Taken 12/18/21] ertapenem 1 g IV Q24H 12/21/21 [History Last Taken 12/20/21] erythromycin 1 applic EACH EYE QHS 12/21/21 [History Last Taken 12/19/21] ferrous sulfate, dried 159 mg PO DAILY 12/21/21 [History Last Taken 12/21/21] fluconazole [Diflucan] 150 mg PO WE 12/21/21 [History Last Taken 12/21/21] fluticasone propionate 2 spray INTRANASAL DAILY 12/21/21 [History Last Taken 12/21/21] hydrocodone-acetaminophen [[place]] 1 tab PO Q4H PRN 12/21/21 [History Last Taken 12/18/21] insulin lispro [Humalog KwikPen Insulin] 10 unit SUBCUT BID 12/21/21 [History Last Taken 12/21/21] insulin regular human [Humulin R Regular U-100 Insuln] See Protocol SUBCUT ACHS 12/21/21 [History Last Taken 12/21/21] lisinopril 10 mg PO DAILY 12/21/21 [History Last Taken 12/21/21] nystatin 1 applic TOPICAL BID 12/21/21 [History Last Taken 12/21/21] oxybutynin chloride 10 mg PO DAILY 12/21/21 [History Last Taken 12/20/21] oxycodone 5 mg PO Q4H PRN 12/21/21 [History Last Taken 12/17/21] sodium chloride 0.9 % (flush) [Normal Saline Flush] 10 ml IV Q12H 12/21/21 [History Last Taken 12/20/21] tramadol 50 mg PO Q8H PRN 12/21/21 [History Last Taken Unknown] vancomycin in 0.9 % sodium chl 1 g IV Q12H 12/21/21 [History Last Taken 12/19/21] Allergy/AdvReac Type Severity Reaction Status Date / Time iodine Allergy Rash Verified 04/27/21 18:10 povidone-iodine Allergy Itching Verified 04/27/21 18:10 [From Betadine] prednisone Allergy tiny Verified 04/27/21 18:10 mouth ulcers Family History Other Cancer Diabetes Heart disease Surgical History H/O foot surgery History of cholecystectomy History of cholecystectomy Hx of CABG Hx of CABG (~01/2015) Previous back surgery Social History Smoking Status: Unknown if ever smoked Results Lab / Micro Data Result Diagrams: 12/21/21 13:35 12/21/21 13:35 Charges/Coding Addendum Addendum: Patient was seen and examined independently. I agree with assessment and plan by SARAH Guidry Patient is a 66-year-old female with a significant history of vulva cancer; and who was recently admitted and treated at [facility] for vulvar abscess with osteomyelitis of pubic bone and who had a recently placed suprapubic catheter; and then discharged to a assisted on vancomycin and Ertapenem presenting with altered mental status. Patient has been hallucinating and confused and per patient's son who say patient 2 days before presentation that is not patient's baseline. Reportedly vancomycin at the assisted was held because of high peak/trough. Physical exam: General: Morbidly obese female in bed; confused and with nonsensical speech. Head: Normocephalic, atraumatic, no tenderness Eyes: EOMI ENT, no trauma, moist mucous membranes, no rhinorrhea Neck: Nontender, full range of motion, no spinal tenderness, deformities, step-off CVS: Regular rate and rhythm. S1-S2 present. No murmur, gallop or rub. Respiratory : clear to auscultation bilaterally, chest wall nontender, no wheezing Abdomen: Ostomy bag in place. Soft, nontender, nondistended, normal bowel sounds, no masses : Swollen mons pubis; swelling and excoriated vulva. Suprapubic catheter in place. Back: Nontender, no CVA tenderness, no midline spinal tenderness, deformities, step-offs Extremities: Nontender full range of motion, no trauma Skin: Stage III pressure ulcer on coccyx. Normal color, no trauma, abrasions Neuro: Alert, confused with nonsensical speech. Psychiatry: Occasionally crying. Acute encephalopathy secondary to Vulvar abscess with osteomyelitis of pubic bone/fistulous tract between urine bladder and vagina Brain CT with no acute brain pathology. CBC showed normal white counts. Actual pelvis CT was visualized and independently interpreted and I agree with radiologist interpretation of fistula between bladder and vagina. We will continue patient on vancomycin and ertapenem that patient was discharged from [facility]. Emergent department doctor discussed the case with [facility] who has put patient on a waiting list and hoping that patient can be accepted on 12/22/2021. Of note patient saw urology at [facility] recently. Trend CBC. In view of possible surgery will continue aspirin but hold off Plavix at this time ELVIA Creatinine presentation was 1.16. Review of record shows a creatinine baseline of around 0.7. Avoid nephrotoxic's. Hold lisinopril. Gentle IV hydration. Trend BMP. Diabetes mellitus Patient with mild hyperglycemia . De-escalate home basal and prandial insulin. Change home prandial insulin from twice daily to 3 times daily. Accu-Chek QA CHS with correction scale insulin ordered. Hypertension Blood pressure is not within goal Lisinopril held secondary to ELVIA. As needed hydralazine ordered. Trend blood pressure and adjust blood pressure medications. Stage III pressure ulcer on coccyx Wet-to-dry dressing on coccyx. Change daily until further wound care recommendation. Wound care consult. Intertrigo between inguinal folds: Nystatin powder ordered. DVT prophylaxis: Patient is a surgical candidate . Will hold off anticoagulation at this time. SCDs ordered Visit Charges Inpatient E&M: 95264 Init Hosp L3 Multi Select Codes Visit Charges Visit Charges: 52526 Init Hosp L3
--- NOTE | 2021-12-22 01:39 | ED.RN ---
SONNATE, UPDATED ON PT'S ADMISSION TO PCU.
[2021-12-22 02:17] LABS: Vancomycin, Trough Level 12.9 ug/mL (5.0-15.0)
[2021-12-22] MEDS: 0.9% Normal Saline 1,000 ML 75 ML IV ×2 (04:26→18:44)
[2021-12-22] MEDS: Vancomycin IV 1,000 MG/200 ML BAG 200 MG IV (05:28)
--- NOTE | 2021-12-22 05:44 | PHA.PHARE_ITS ---
Consult Pharmacy has been consulted to manage selected antiobiotic: Vancomycin Type of Consult: New start Suspected Infection: Skin/Soft tissue, Osteomyelitis Prior Doses of Antibiotics Received/Current Regimen: Medications Vancomycin HCl (Vancomycin) 1,000 mg in 200 mls @ 200 mls/hr IV Q24H CRISTO Discontinued Medications Vancomycin HCl (Vancomycin) 1,000 mg in 200 mls @ 200 mls/hr IV X1 ONE Stop: 12/22/21 05:29 Last Admin: 12/22/21 05:28 Dose: 200 mls/hr Labs: Sodium 138 mmol/L (136-145) 12/21/21 13:35 Potassium 4.0 mmol/L (3.5-5.1) 12/21/21 13:35 Chloride 102 mmol/L (98-107) 12/21/21 13:35 Carbon Dioxide 32.0 mmol/L (21.0-32.0) 12/21/21 13:35 Anion Gap 4 (5-15) L 12/21/21 13:35 BUN 24 mg/dL (7-18) H 12/21/21 13:35 Creatinine 1.16 mg/dL (0.55-1.02) H 12/21/21 13:35 Est GFR (MDRD) Af Amer 60 mL/min (>60) 12/21/21 13:35 Est GFR (MDRD) Non-Af 49 mL/min (>60) L 12/21/21 13:35 BUN/Creatinine Ratio 20.7 RATIO (10-20) H 12/21/21 13:35 Glucose 126 mg/dL (74-106) H 12/21/21 13:35 Vancomycin Trough 12.9 ug/mL (5.0-15.0) 12/22/21 00:55 Weight used for dosin.2 kg Estimated Creatinine Clearance: 42 Goal Trough: 15-20 mcg/mL Pharmacy Plan for Drug Dosing: Pt came in having been on vancomycin previously at skilled nursing. The last dose given had been 1250mg on 12/19 in the morning. Allegedly had a previous high trough level, so will dose conservatively. A level drawn here 12/22/21 @0055 was 12.9. From this level the dosing calculator estimated a dose of 1000mg q24h would give a trough of 17.0. Will draw a trough prior to 3rd dose. Pharmacy Service will continue to monitor and adjust dosing as required. Follow-Up Labs: Trough Vancomycin Labs to be done on [date and time ordered]: 12/24/21 @0500
[2021-12-22 06:17] LABS: Absolute Lymphocyte Count 0.97 X10^3/uL (0.83-4.51); Absolute Neutrophil Count 6.3 X10^3/uL (2.0-7.7); Basophil# 0.02 X10^3/uL; Basophil% 0.3 % (0-1); Eosinophil# 0.02 X10^3/uL; Eosinophils% 0.3 % (0-5); Hematocrit 31.4 % (37-47); Lymphocyte # 0.97 X10^3/ul (0.83-4.51); Lymphocyte % 13.1 % (19-41); Mean Corp Hgb Conc 31.8 g/dL (32-36); Mean Corpuscular Hgb 25.8 pg (27.0-32.0); Mean Corpuscular Volume 80.9 fL (81-99); Mean Platelet Vol. 9.9 fl (6.2-12.0); Monocyte# 0.08 X10^3/uL; Monocyte% 1.1 % (0-10); NRBC Flagged by Analyzer 0 % (0-5); Neutrophil # 6.25 X10^3/uL (2.7-7.7); Neutrophil % 84.5 % (47-70); Platelet Count 332 K/mm3 (150-450); RBC Distribution Width CV 17.2 % (11.6-14.6); RBC Distribution Width SD 50.4 fl (35.1-43.9); Red Blood Count 3.88 M/mm3 (4.2-5.4); White Blood Count 7.4 K/mm3 (4.4-11.0)
[2021-12-22 06:45] LABS: Anion Gap 9 (5-15); BUN 21 mg/dL (7-18); BUN/Creat Ratio 25.9 RATIO (10-20); Calcium,Total 9.4 mg/dL (8.5-10.1); Chloride 104 mmol/L (98-107); Creatinine, Serum 0.81 mg/dL (0.55-1.02); EST Glomerular Filtration Rate 75 mL/min (>60); Est Glom Filt Rate - Afr Amer 90 mL/min (>60); Estimated Creatinine Clearance 60.65 ml/min; Glucose 203 mg/dL (74-106); Potassium 3.9 mmol/L (3.5-5.1); Sodium Level 137 mmol/L (136-145)
[2021-12-22] MEDS: LORazepam 2 MG/ML Syringe IV (08:15)
[2021-12-22 08:31] LABS: Bedside Glucose 246 mg/dL (74-106)
[2021-12-22] MEDS: Flumazenil 0.5 MG/5 ML Vial 0.2 MG IV (08:43)
--- NOTE | 2021-12-22 08:44 | NURSING ---
0830 SpO2 71% , increased to 100%. agonal respers noted. Dr. Metcalf paged. RT paged for stat ABG. 0878 Dr. Metcalf present in pt room, orders recd 0840 Flumazinel 0.2 mg IV given 0850 SpO2 100%, decreased to 90%
[2021-12-22 08:56] LABS: Base Excess 0 mmol/L (-2 to +2); Bicarbonate 28.9 mmol/L (22-26); Blood Gas Specimen Type ART; FI02 100; Mode BiLevel; O2 Delivery Device BiPAP; PEEP 18; PO2 508 mmHG (75-100); PS 23; RR 14; SITE R Brach; SO2 100 % (95-99); Total Carbon Dioxide 31 mmol/L; pCO2 79.5 mmHg (35-45); pH 7.17 (7.35-7.45)
[2021-12-22] MEDS: Insulin Lispro 100 UNIT/ML INSULN.PEN SC ×6 (08:57→17:40)
--- NOTE | 2021-12-22 09:18 | PCM.PN.HOSP ---
Subjective Subjective Initial interaction with her was secondary to an CONTINUING EDUCATION INSTRUCTOR for seizure. On my arrival she was in and out of being alert and on occasion you would see her eyes rolled to the back of her head and her arms jerk bilaterally. She had been placed on BiPAP because according to the son she does have sleep apnea but she does not wear CPAP. She was given an abortive 2 mg of Ativan while Keppra was pending. Unfortunately do not have an EEG at this institution as it is currently being repaired. Unfortunate with the Ativan she had a significant drop in her respirations and after review of the medical record that shows that she has not been on any benzos previously and since the Keppra was infusing flumazenil was given. An ABG was obtained which showed a pH of 7.168 and a PCO2 almost at 80 indicating a respiratory acidosis. I discussed the situation with the son and he said that she had a similar event being transferred from her previous hospitalization for this pelvic infection that she has been treated for, after discharge I given her a dose of Ativan and she had respiratory depression with a respiratory rate of 6 but she did recover. We will continue with noninvasive ventilation at this time though I discussed with him the possibility of needing intubation. Objective Data Objective Data Vital Signs: Vital Signs Temp Pulse Resp BP Pulse Ox 97.9 F 105 H 16 154/71 H 70 12/22/21 07:29 12/22/21 08:30 12/22/21 08:30 12/22/21 08:30 12/22/21 08:30 Oxygen Flow Rate (L/min) 2 Oxygen Delivery Method Bi-pap Weight: 249 lb 9.012 oz Body Mass Index (BMI) 41.5 Intake & Output: Intake and Output for Last 24 Hours 12/21/21 12/22/21 12/23/21 03:59 03:59 03:59 Intake Total 510 / 510 250 / 250 Output Total 350 / 350 Balance 510 / 510 -100 / -100 Lab / Micro Data Result Diagrams: 12/22/21 04:28 12/22/21 04:28 Labs: Laboratory Results - last 24 hr 12/21/21 13:35: WBC 9.6, RBC 3.86 L, Hgb 10.0 L, Hct 31.6 L, MCV 81.9, MCH 25.9 L, MCHC 31.6 L, RDW Std Deviation 51.0 H, RDW Coeff of Ash 17.1 H, Plt Count 386, MPV 9.6, Immature Gran % (Auto) 0.600, Neut % (Auto) 64.2, Lymph % (Auto) 20.2, [place] % (Auto) 10.1 H, Eos % (Auto) 4.4, Baso % (Auto) 0.5, Absolute Neuts (auto) 6.2, Absolute Lymphs (auto) 1.95, Nucleated RBC % 0 12/21/21 13:35: Sodium 138, Potassium 4.0, Chloride 102, Carbon Dioxide 32.0, Anion Gap 4 L, BUN 24 H, Creatinine 1.16 H, Estim Creat Clear Calc 42.35, Est GFR (MDRD) Af Amer 60, Est GFR (MDRD) Non-Af 49 L, BUN/Creatinine Ratio 20.7 H, Glucose 126 H, Calcium 10.2 H, Total Bilirubin 0.40, AST 21, ALT 21, Alkaline Phosphatase 81, Total Protein 8.3 H, Albumin 2.7 L, Globulin 5.6 H, Albumin/Globulin Ratio 0.5 L 12/21/21 13:35: Lactic Acid 1.9 12/21/21 18:55: Urine Color Yellow, Urine Clarity Clear, Urine pH 6.0, Ur Specific [place] 1.015, Urine Protein 100 H, Urine Glucose (UA) Normal, Urine Ketones Negative, Urine Occult Blood 50 H, Urine Nitrite Negative, Urine Bilirubin Negative, Urine Urobilinogen Normal, Ur Leukocyte Esterase 100 H, Urine RBC 0-5 SEEN, Urine WBC 0-5 SEEN, Ur Squamous Epith Cells 0 SEEN, Urine Bacteria 0 SEEN, Urine Mucus 0 SEEN 12/22/21 00:55: Vancomycin Trough 12.9 12/22/21 04:28: WBC 7.4, RBC 3.88 L, Hgb 10.0 L, Hct 31.4 L, MCV 80.9 L, MCH 25.8 L, MCHC 31.8 L, RDW Std Deviation 50.4 H, RDW Coeff of Ash 17.2 H, Plt Count 332, MPV 9.9, Immature Gran % (Auto) 0.700, Neut % (Auto) 84.5 H, Lymph % (Auto) 13.1 L, [place] % (Auto) 1.1, Eos % (Auto) 0.3, Baso % (Auto) 0.3, Absolute Neuts (auto) 6.3, Absolute Lymphs (auto) 0.97, Nucleated RBC % 0 12/22/21 04:28: Sodium 137, Potassium 3.9, Chloride 104, Carbon Dioxide 24.0, Anion Gap 9, BUN 21 H, Creatinine 0.81, Estim Creat Clear Calc 60.65, Est GFR (MDRD) Af Amer 90, Est GFR (MDRD) Non-Af 75, BUN/Creatinine Ratio 25.9 H, Glucose 203 H, Calcium 9.4 12/22/21 08:20: POC Glucose 246 H ABG Data ABG results: ABG 12/22/21 08:48 Specimen Type ART Sample Site R Brach pH 7.17 L* Bicarbonate Actual 28.9 H Total CO2 31 Base Excess 0 O2 Saturation 100 H O2 % 100 ABG pCO2 79.5 H* ABG pO2 508 H* Jordy Test N/A Respiration Rate 14 O2 Delivery Device BiPAP Vent Mode BiLevel POC PEEP 18 POC Pressure Suppt 23 Crit Call To/Read Back Yes Blood Gas Notified Whom dr pepper Radiography Diagnostic Testing: Radiology Impression Chest X-Ray 12/21/21 15:50 IMPRESSION: No acute findings. Stable examination since 02/10/2021. Electronically Signed: Miquel Oconnor, at 16:01 EDT Reading Location ID and State: [facility] / [place] Tel , Service support , Brain CT 12/21/21 20:50 IMPRESSION: Chronic involutional changes without evidence of acute intracranial or calvarial abnormality. There is no major interval change. Electronically Signed: Jhonny Conrad, at 21:38 EDT , Pelvis CT 12/21/21 22:05 IMPRESSION: Findings consistent with fistulous tract between the urinary bladder and the vagina. Individualized dose optimization techniques were used for this CT. at 0012 Reported and signed by: Fabrizio Ramirez MD Electronically Signed: Fabrizio Ramirez MD at 0:11 EDT , Physical Exam Const Constitutional Narrative: Seizure-like activity General Appearance: cooperative Orientation / Consciousness: lethargic Nutritional Appearance: morbidly obese HEENT normocephalic Mouth: dry mucous membranes Eyes PERRL and conjunctivae normal Neck supple and no JVD Resp Resp Narrative: Appear to be snoring at times Effort and Inspection: decreased respiratory effort Auscultation: Negative for crackles, rales, rhonchi or wheezes Cardio regular rhythm, S1 normal heart sound, S2 normal heart sound and no murmurs Rate: tachycardic GI soft to palpation and non-distended; Negative for hepatosplenomegaly Extremity no clubbing, cyanosis or edema Skin no rashes or lesions noted Neuro Neuro Narrative: Intermittent seizure-like activity Sensorium / Orientation: confused and stuporous Psych Psych Narrative: Lethargic secondary to respiratory acidosis and medications Assessment & Plan Assessment/Plan (1) Encephalopathy acute: (2) Vesicovaginal fistula: (3) Vulval cellulitis: (4) Osteomyelitis of symphysis pubis: PLAN: 1. Acute encephalopathy/acute seizure with respiratory acidosis -Likely secondary to infection as patient's vancomycin was held for multiple days secondary to elevated vancomycin trough ?Continue with normal saline infusion ?Gave Ativan to stop the seizure however this likely led her into respiratory depression and in the setting of her previous obstructive sleep apnea and her altered mental status she developed some respiratory acidosis. Flumazenil was given and will continue on IV Keppra ?Continue with BiPAP ?pH was 7.16 with a pCO2 of almost 80 2. Vulval cellulitis with osteomyelitis of the symphysis pubis and vesicovaginal fistula -Continue ertapenem and vancomycin -Vancomycin trough ordered -Awaiting transfer to [facility] where she had been prior to this for her pelvic infection -Maintain suprapubic catheter and continue oxybutynin -Encourage good kennedy-care 3. Sacral wound -Consult wound nurse -Wound redressed in ER, maintain current dressing pending wound nurse evaluation -Did not appear infected upon evaluation 4. Diabetes mellitus type 2 -Continue patient's home medication regimen of Lantus and twice daily insulin lispro -ACH S blood sugars with sliding scale insulin ordered -Cardiac calorie controlled diet ordered 5. HTN/HLD/CAD status post CABG ?Blood pressure is now stable however she is lethargic and was having a seizure therefore we will continue to hold any oral medications ?Hold her Lipitor as well as her other oral medications ?Can resume all of her oral medications once she is alert and oriented and able to tolerate p.o. safely DVT: SCDs Charges/Coding Visit Charges Inpatient E&M: 11664 [facility] Hosp L3
--- NOTE | 2021-12-22 10:10 | CASEMGMT ---
Discharge Labor Relations Worker Faxed over update to Mati Garduno. Kirsten Mcclelland Discharge Labor Relations Worker
[2021-12-22 10:26] LABS: Base Excess 0 mmol/L (-2 to +2); Bicarbonate 25.3 mmol/L (22-26); Blood Gas Specimen Type ART; FI02 50; Mode BiLevel; O2 Delivery Device BiPAP; PEEP 14; PO2 192 mmHG (75-100); PS 23; RR 14; SITE R Brach; SO2 100 % (95-99); Total Carbon Dioxide 27 mmol/L; pCO2 46.2 mmHg (35-45); pH 7.35 (7.35-7.45)
--- NOTE | 2021-12-22 13:44 | WOUNDNOTE ---
wound photo: right foot
--- NOTE | 2021-12-22 13:44 | WOUNDNOTE ---
wound photo: left heel
--- NOTE | 2021-12-22 13:45 | WOUNDNOTE ---
wound photo: sacrum
[2021-12-22] MEDS: Fluticasone 0.05% 1 SPRAY NASAL.SRY 2 SPRAY NASAL (14:51)
[2021-12-22] MEDS: Nystatin Ointment 1 APPLIC TOPICAL (14:52)
[2021-12-22] MEDS: hydrALAZINE 20 MG/ML Vial 5 MG IV ×2 (15:10→20:26)
[2021-12-22] MEDS: 0.9% Saline Lock 10 ML Syringe IV (15:11)
[2021-12-22 15:26] LABS: Bedside Glucose 186 mg/dL (74-106)
--- NOTE | 2021-12-22 16:43 | PCM.DC.SUM ---
Providers Date of Admission: 12/22/21 Primary Care Physician: Dr. Laura Pulliam MD Consultations 12/22/21 03:34 Consult: Onc/Wound/reed polisher Routine Comment: Reason for Consult:: sacral wound, vaginal excoriation Reason For Visit: ENCEPHALOPATHY, VASICOVAGINAL FISTULA Diagnosis Discharge Diagnosis (1) Encephalopathy acute: Status: Acute Code(s): G93.40 - Encephalopathy, unspecified (2) Vesicovaginal fistula: Status: Acute Code(s): N82.0 - Vesicovaginal fistula (3) Vulval cellulitis: Status: Acute Code(s): N76.2 - Acute vulvitis (4) Osteomyelitis of symphysis pubis: Status: Acute Code(s): M86.9 - Osteomyelitis, unspecified Medications at Discharge Home Medications atorvastatin 80 mg PO QHS 03/24/15 metoprolol tartrate 25 mg PO BID 03/24/15 clopidogrel 75 mg PO DAILY 12/02/20 amitriptyline 50 mg PO QHS 01/05/21 duloxetine 60 mg PO DAILY 01/05/21 insulin glargine 65 units SC QHS 01/05/21 hydrocodone-acetaminophen [Goodman] 2 tab PO QHS 04/27/21 aspirin [Aspirin Low-Strength] 81 mg PO DAILY 12/21/21 calcium carbonate-vitamin D3 [Calcium 500 + D] 1 tab PO BID 12/21/21 citalopram 40 mg PO SUMOTUTHFRSA 12/21/21 diphenhydramine HCl 50 mg PO Q8H PRN 12/21/21 ertapenem 1 g IV Q24H 12/21/21 erythromycin 1 applic EACH EYE QHS 12/21/21 ferrous sulfate, dried 159 mg PO DAILY 12/21/21 fluconazole [Diflucan] 150 mg PO WE 12/21/21 fluticasone propionate 2 spray INTRANASAL DAILY 12/21/21 hydrocodone-acetaminophen [Goodman] 1 tab PO Q4H PRN 12/21/21 insulin lispro [Humalog KwikPen Insulin] 10 unit SUBCUT BID 12/21/21 insulin regular human [Humulin R Regular U-100 Insuln] See Protocol SUBCUT ACHS 12/21/21 lisinopril 10 mg PO DAILY 12/21/21 nystatin 1 applic TOPICAL BID 12/21/21 oxybutynin chloride 10 mg PO DAILY 12/21/21 oxycodone 5 mg PO Q4H PRN 12/21/21 sodium chloride 0.9 % (flush) [Normal Saline Flush] 10 ml IV Q12H 12/21/21 tramadol 50 mg PO Q8H PRN 12/21/21 vancomycin in 0.9 % sodium chl 1 g IV Q12H 12/21/21 Hospital Course Operations None Procedures None Summary of Care Provided Minutes Spent on Discharge: 45 Hospital Course: Per HPI: [place] JIANG, is a 66 F who presents from [facility] with reports of altered mental status. Patient is hallucinating and not making sense at times. Patient also noted to be restless in ER bed. Patient was recently at [facility] where a suprapubic catheter was placed. At that time patient was diagnosed with vulval cellulitis as well as osteomyelitis of the symphysis pubis. Patient was initiated on Invanz and vancomycin and sent to [facility] for antibiotic treatment and blood level monitoring of the vancomycin. Per patient's son patient had been herself when he saw her 2 days ago however over the past 2 days he has had an increasingly hard time getting a hold of her and today she was noted to be not herself. Patient also has a history of vulval cancer with radiation. Upon presentation to ER patient was noted to have notable amounts of discharge and drainage to vulva, bilateral groins and under her abdominal fold as well as a saturated dressing surrounding her suprapubic catheter. Suprapubic catheter and dressing were changed in ER. Patient also has a medical history that includes diabetes mellitus type 2, chronic anemia, decubitus ulcer to her coccyx, coronary artery disease, COPD, depression, neuropathy. Hospital Course: 1. Acute encephalopathy secondary to vulval cellulitis with osteomyelitis of the symphysis pubis and vesicovaginal fistula?66-year-old female was initially at an outside hospital for this infection and she was transferred to a [facility] to complete IV antibiotics while at the [facility] she was found to be altered by her son and requested evaluation of the emergency room. She was brought here and was discussed the outside hospital about returning her to their institution for continued care as we do not have the facilities to treat this vesicovaginal fistula and the other complications with her infections. My initial interaction with her was secondary to an FISH PEDDLER for seizure. On my arrival she was in and out of being alert and on occasion you would see her eyes rolled to the back of her head and her arms jerk bilaterally. She had been placed on BiPAP because according to the son she does have sleep apnea but she does not wear CPAP. She was given an abortive 2 mg of Ativan while Keppra was pending. Unfortunately we do not have an EEG at this institution as it is currently being repaired. Unfortunately with the Ativan she had a significant drop in her respirations and after review of the medical record that shows that she has not been on any benzos previously and since the Keppra was infusing flumazenil was given. An ABG was obtained which showed a pH of 7.168 and a PCO2 almost at 80 indicating a respiratory acidosis. I discussed the situation with the son and he said that she had a similar event being transferred from her previous hospitalization for this pelvic infection that she has been treated for, after discharge I given her a dose of Ativan and she had respiratory depression with a respiratory rate of 6 but she did recover. We will continue with noninvasive ventilation at this time though I discussed with him the possibility of needing intubation. With adjustment of BiPAP settings in the flumazenil, her ABGs did improve but she still is confused. I did discuss with the outside hospital the need for neurological evaluation and our inability to provide this at this time secondary to the EEG machine being broken and no inpatient neurology. They have accepted her in transfer today. Weight / BMI Weight Weight: 249 lb 9.012 oz Body Mass Index (BMI) 41.5 ABG / Lab / Microbiology Data Result Diagrams: 12/22/21 04:28 12/22/21 04:28 Laboratory: Laboratory Results - last 24 hr 12/21/21 18:55: Urine Color Yellow, Urine Clarity Clear, Urine pH 6.0, Ur Specific [place] 1.015, Urine Protein 100 H, Urine Glucose (UA) Normal, Urine Ketones Negative, Urine Occult Blood 50 H, Urine Nitrite Negative, Urine Bilirubin Negative, Urine Urobilinogen Normal, Ur Leukocyte Esterase 100 H, Urine RBC 0-5 SEEN, Urine WBC 0-5 SEEN, Ur Squamous Epith Cells 0 SEEN, Urine Bacteria 0 SEEN, Urine Mucus 0 SEEN 12/22/21 00:55: Vancomycin Trough 12.9 12/22/21 04:28: WBC 7.4, RBC 3.88 L, Hgb 10.0 L, Hct 31.4 L, MCV 80.9 L, MCH 25.8 L, MCHC 31.8 L, RDW Std Deviation 50.4 H, RDW Coeff of Ash 17.2 H, Plt Count 332, MPV 9.9, Immature Gran % (Auto) 0.700, Neut % (Auto) 84.5 H, Lymph % (Auto) 13.1 L, [place] % (Auto) 1.1, Eos % (Auto) 0.3, Baso % (Auto) 0.3, Absolute Neuts (auto) 6.3, Absolute Lymphs (auto) 0.97, Nucleated RBC % 0 12/22/21 04:28: Sodium 137, Potassium 3.9, Chloride 104, Carbon Dioxide 24.0, Anion Gap 9, BUN 21 H, Creatinine 0.81, Estim Creat Clear Calc 60.65, Est GFR (MDRD) Af Amer 90, Est GFR (MDRD) Non-Af 75, BUN/Creatinine Ratio 25.9 H, Glucose 203 H, Calcium 9.4 12/22/21 08:20: POC Glucose 246 H 12/22/21 14:30: POC Glucose 186 H Microbiology: Microbiology 12/21/21 18:55 Urine Catheter - Catheter Urine Culture - Preliminary Culture exhibits no growth. ABG: ABG 12/22/21 12/22/21 08:48 10:22 Specimen Type ART ART Sample Site R Brach R Brach pH 7.17 L* 7.35 Bicarbonate Actual 28.9 H 25.3 Total CO2 31 27 Base Excess 0 0 O2 Saturation 100 H 100 H O2 % 100 50 ABG pCO2 79.5 H* 46.2 H ABG pO2 508 H* 192 H Jordy Test N/A N/A Respiration Rate 14 14 O2 Delivery Device BiPAP BiPAP Vent Mode BiLevel BiLevel POC PEEP 18 14 POC Pressure Suppt 23 23 Crit Call To/Read Back Yes Blood Gas Notified Whom dr metcalf Radiography Diagnostic Testing: Radiology Impression Brain CT 12/21/21 20:50 IMPRESSION: Chronic involutional changes without evidence of acute intracranial or calvarial abnormality. There is no major interval change. Electronically Signed: Jhonny Conrad DO at 21:38 EDT Reading Location ID and State: [address] [place] [address] Tel [phone], Service support , Pelvis CT 12/21/21 22:05 IMPRESSION: Findings consistent with fistulous tract between the urinary bladder and the vagina. Individualized dose optimization techniques were used for this CT. at 0012 Reported and signed by: Fabrizio Ramirez MD Electronically Signed: Fabrizio Ramirez MD at 0:11 EDT Reading Location ID and State: [facility] / [place] Tel , Service support , Meaningful Use Info Meaningful Use Diagnoses (Choose all that apply): None applicable Discharge Plan Admission Admit Date/Time: 12/22/21 01:07 Attending Provider: Geovani Metcalf Primary Care Provider: Laura Pulliam Discharge Orders/Prescriptions Prescriptions: No Action atorvastatin 80 MG tablet 80 mg PO QHS RF: 0 metoprolol tartrate 25 MG tablet 25 mg PO BID RF: 0 clopidogrel 75 MG tablet 75 mg PO DAILY RF: 0 amitriptyline 50 MG tablet 50 mg PO QHS RF: 0 duloxetine 60 MG capsule,delayed release(DR/EC) 60 mg PO DAILY RF: 0 insulin glargine 100 UNITS/ML insulin pen 65 units SC QHS RF: 0 hydrocodone-acetaminophen [Goodman] 5-325 mg Tablet 2 tab PO QHS RF: 0 citalopram 40 mg Tablet 40 mg PO [facility] RF: 0 oxybutynin chloride 10 mg Tablet Extended Release 24hr 10 mg PO DAILY RF: 0 fluconazole [Diflucan] 150 mg Tablet 150 mg PO WE RF: 0 hydrocodone-acetaminophen [Goodman] 5-325 mg Tablet 1 tab PO Q4H PRN (Reason: Pain) RF: 0 aspirin [Aspirin Low-Strength] 81 mg Tablet,Delayed Release (Dr/Ec) 81 mg PO DAILY RF: 0 erythromycin 5 mg/gram (0.5 %) Ointment 1 applic EACH EYE QHS RF: 0 diphenhydramine HCl 25 mg Capsule 50 mg PO Q8H PRN (Reason: Itching) RF: 0 nystatin 100,000 unit/gram Cream 1 applic TOPICAL BID RF: 0 lisinopril 10 mg Tablet 10 mg PO DAILY RF: 0 Humulin R Regular U-100 Insuln 100 unit/mL Solution See Protocol unit SUBCUT ACHS RF: 0 fluticasone propionate 50 mcg/actuation [place],Suspension 2 spray INTRANASAL DAILY RF: 0 oxycodone 5 mg Tablet 5 mg PO Q4H PRN (Reason: Pain) RF: 0 insulin lispro [Humalog KwikPen Insulin] 100 unit/mL Insulin Pen 10 unit SUBCUT BID RF: 0 sodium chloride 0.9 % (flush) [Normal Saline Flush] Syringe 10 ml IV Q12H RF: 0 calcium carbonate-vitamin D3 [Calcium 500 + D] 500 mg-10 mcg (400 unit) Tablet,Chewable 1 tab PO BID RF: 0 ertapenem 1 gram Recon Soln 1 g IV Q24H RF: 0 vancomycin in 0.9 % sodium chl 1.25 gram/250 mL Solution 1 g IV Q12H RF: 0 ferrous sulfate, dried 159 mg (45 mg iron) Tablet Extended Release 159 mg PO DAILY RF: 0 tramadol 50 MG tablet 50 mg PO Q8H PRN (Reason: Pain) RF: 0 Referrals / Follow Up: Laura Pulliam MD [Primary Care Provider] - Disposition Discharge Orders: Discharge Patient (Routine); Ordered 12/22/21 Ordered By: Dr. Geovani Metcalf Charges/Coding Visit Charges Inpatient E&M: [id number] Disch Hosp
[2021-12-22] MEDS: Nystatin Powder 15gm Bottle 1 APPLIC TOPICAL (17:41)
[2021-12-22 17:55] LABS: Bedside Glucose 218 mg/dL (74-106)
[2021-12-22] MEDS: levETIRAcetam IV 1,000 MG/100 ML BAG 400 MG IV (20:29)
[2021-12-22 20:36] LABS: Bedside Glucose 179 mg/dL (74-106)
== END 2021-12-22 21:40 | disposition short-term general hospital (02) | DRG 757 ==
LOC: ED 19:15 → PCU 12-22 03:17
PROVIDERS: Nurse Practitioner Family; Admitting Provider Hospitalist; Emergency Provider Emergency Medicine; PCP Internal Medicine; Visit Provider Family Medicine
DX: N76.2 Acute vulvitis (principal); L89.153 Pressure ulcer of sacral region, stage 3; G93.49 Other encephalopathy; M86.18 Other acute osteomyelitis, other site; N17.9 Acute kidney failure, unspecified; E87.2 Acidosis; Z68.41 Body mass index [BMI] 40.0-44.9, adult; I45.2 Bifascicular block; N82.0 Vesicovaginal fistula; D64.9 Anemia, unspecified; E11.40 Type 2 diabetes mellitus with diabetic neuropathy, unspecified; I11.0 Hypertensive heart disease with heart failure; E11.69 Type 2 diabetes mellitus with other specified complication; E11.65 Type 2 diabetes mellitus with hyperglycemia; I50.9 Heart failure, unspecified; J44.9 Chronic obstructive pulmonary disease, unspecified; Z79.4 Long term (current) use of insulin; E66.01 Morbid (severe) obesity due to excess calories; R56.9 Unspecified convulsions; Z93.2 Ileostomy status; I25.10 Atherosclerotic heart disease of native coronary artery without angina pectoris; G47.33 Obstructive sleep apnea (adult) (pediatric); E78.5 Hyperlipidemia, unspecified; L30.4 Erythema intertrigo; I25.2 Old myocardial infarction; F32.A Depression, unspecified; Z95.1 Presence of aortocoronary bypass graft; Z79.02 Long term (current) use of antithrombotics/antiplatelets; Z79.82 Long term (current) use of aspirin; Z79.899 Other long term (current) drug therapy; Z86.73 Personal history of transient ischemic attack (TIA), and cerebral infarction without residual deficits
CPT/HCPCS: 36415; 36600; 70450; 71045; 72193; 80048; 80053; 80202; 81001; 82803; 82962; 83605; 85025; 87040; 87086; 93005; 94002; 97802; 99285; 99406; J7030; J7040; Q9967; A4216; J3490

== ENCOUNTER 2022-04-17 13:10 | Observation (INO) | payer MEDICARE, MEDICAID, SELFPAY ==
[2022-04-17 13:12] VITALS: BP 130/55; PULSE 72; RESP 16; TEMP 36.8; O2SAT 96; BMI 38.9
--- NOTE | 2022-04-17 14:16 | EKG12_ITS ---
Test Reason : Blood Pressure : / mmHG Vent. Rate : 072 BPM Atrial Rate : 072 BPM P-R Int : 166 ms QRS Dur : 136 ms QT Int : 448 ms P-R-T Axes : 056 -36 023 degrees QTc Int : 490 ms Normal sinus rhythm Left axis deviation Right bundle branch block Possible Lateral infarct , age undetermined Inferior infarct , age undetermined, cannot be excluded Abnormal ECG Confirmed by VIVIAN BHAT, LILIAN ([id number]), editorial intern CJ MALLOY ([id number]) on 04/19/2022 10:40:44 AM Referred By: Confirmed By:LILIAN PARK MD
--- NOTE | 2022-04-17 14:18 | EX.ED.DYSGE1 ---
HPI History of Present Illness Chief Complaint: Mental Status Change Informant: patient Onset/Context/Timing Onset: Days Context: Gradual Onset Timing: Intermittent Current Severity: Mild Maximum Severity: Mild Narrative Narrative: 67-year-old female extensive past medical history of COPD, diabetes, etc.. Patient comes in today due to mental status change. States she is been having hallucinations seeing snakes. Yesterday started on Seroquel. She denies any recent illness. She denies fever or chills. She denies nausea, vomiting or diarrhea. She has a chronic indwelling Guy catheter. She is now at home living with her son but prior to that was at [facility]. Prior similar symptoms: No Recent Illness/Hospitalization: No PFSH PFS Medical History Anxiety Chest pain Chronic pain Colostomy in place Congestive heart failure (CHF) COPD (chronic obstructive pulmonary disease) Coronary artery disease Depression Guy catheter in place GERD (gastroesophageal reflux disease) Hearing loss, left Hearing loss, right Hypertension Osteomyelitis due to secondary diabetes Past heart attack Sleep apnea Smoker Smoker Stroke/cerebrovascular accident Stroke/cerebrovascular accident TIA (transient ischemic attack) Vulva cancer Wound cellulitis after surgery Home Medications atorvastatin 80 mg tablet 80 mg PO QHS CHOLESTEROL 03/24/15 [History Last Taken 12/20/21] metoprolol tartrate 25 mg tablet 25 mg PO BID HTN 03/24/15 [History Last Taken 12/21/21] clopidogrel 75 mg tablet 75 mg PO DAILY BLOOD THINNER 12/02/20 [History Last Taken 12/20/21] amitriptyline 50 mg tablet 50 mg PO QHS SLEEP 01/05/21 [History Last Taken 12/20/21] duloxetine 60 mg capsule,delayed release 60 mg PO DAILY DEPRESSION 01/05/21 [History Last Taken 12/21/21] insulin glargine 100 unit/mL (3 mL) subcutaneous pen 65 units subcut QHS DM 01/05/21 [History Last Taken 12/20/21] hydrocodone-acetaminophen 5-325mg 5mg-325mg 2 tab PO QHS 04/27/21 [History Last Taken 12/20/21] aspirin 81 mg tablet,delayed release 81 mg PO DAILY CAD 12/21/21 [History Last Taken 12/21/21] calcium carbonate 500 mg-vitamin D3 10 mcg (400 unit) chewable tablet (Calcium 500 + D) 1 tab PO BID SUPPLEMENT 12/21/21 [History Last Taken 12/21/21] citalopram 40 mg tablet 40 mg PO SUMOTUTHFRSA 12/21/21 [History Last Taken 12/20/21] diphenhydramine HCl 25 mg capsule 25 mg PO BID PRN PRN Itching 12/21/21 [History Last Taken 12/18/21] ertapenem 1 gram intravenous solution 1 g IV Q24H SURGICAL PAIN 12/21/21 [History Last Taken 12/20/21] erythromycin 5 mg/gram (0.5 %) eye ointment 1 applic EACH EYE QHS 12/21/21 [History Last Taken 12/19/21] ferrous sulfate, dried 159 mg (45 mg iron) tablet,extended release 159 mg PO DAILY SUPPLEMENT 12/21/21 [History Last Taken 12/21/21] fluconazole 150 mg tablet (Diflucan) 150 mg PO WE ANTIFUNGAL 12/21/21 [History Last Taken 12/21/21] fluticasone propionate 50 mcg/actuation nasal spray,suspension 2 spray intranasal DAILY ALLERGIES 12/21/21 [History Last Taken 12/21/21] hydrocodone-acetaminophen 5-325mg 5mg-325mg 2 tab PO Q4H PRN Pain 12/21/21 [History Last Taken 12/18/21] insulin lispro 100 unit/mL subcutaneous pen (Humalog KwikPen (U-100) Insulin) 10 unit subcut BID DM 12/21/21 [History Last Taken 12/21/21] insulin regular human 100 unit/mL injection solution (Humulin R Regular U-100 Insulin) See Protocol subcut ACHS DM 12/21/21 [History Last Taken 12/21/21] lisinopril 10 mg tablet 10 mg PO DAILY HTN 12/21/21 [History Last Taken 12/21/21] nystatin 100,000 unit/gram topical cream 1 applic topical BID SKIN FOLDS 12/21/21 [History Last Taken 12/21/21] oxybutynin chloride 10 mg tablet,extended release 24 hr 10 mg PO DAILY OAB 12/21/21 [History Last Taken 12/20/21] oxycodone 5 mg tablet 5 mg PO Q4H PRN Pain 12/21/21 [History Last Taken 12/17/21] sodium chloride 0.9 % (flush) (Normal Saline Flush) 10 ml IV Q12H 12/21/21 [History Last Taken 12/20/21] tramadol 50 mg tablet 50 mg PO Q8H PRN Pain 12/21/21 [History Last Taken Unknown] vancomycin 1.25 gram/250 mL in 0.9 % sodium chloride intravenous 1 g IV Q12H SURGERY 12/21/21 [History Last Taken 12/19/21] divalproex 125 mg tablet,delayed release (Depakote) 125 mg PO BID 04/17/22 [History Last Taken Unknown] levetiracetam 750 mg tablet (Keppra) 750 mg PO BID 04/17/22 [History Last Taken Unknown] methadone 5 mg tablet 1 tab PO BID 04/17/22 [History Last Taken Unknown] quetiapine 25 mg tablet (Seroquel) 25 mg PO QHS 04/17/22 [History Last Taken Unknown] Allergy/AdvReac Type Severity Reaction Status Date / Time gabapentin Allergy Other Verified 04/17/22 13:15 iodine Allergy Rash Verified 04/27/21 18:10 lorazepam [From Ativan] Allergy Other Verified 04/17/22 13:15 povidone-iodine Allergy Itching Verified 04/27/21 18:10 [From Betadine] prednisone Allergy tiny Verified 04/27/21 18:10 mouth ulcers Family History Other Cancer Diabetes Heart disease Surgical History H/O foot surgery History of cholecystectomy History of cholecystectomy Hx of CABG Hx of CABG (~01/2015) Previous back surgery Social History Smoking Status: Current every day smoker tobacco type: cigarettes ROS ROS ED ROS Narrative Hallucinations. Denies illness. Review of Systems ROS Unobtainable: Denies due to encephalopathy Constitutional Constitutional ED: Denies chills Eyes Eyes: Denies blurry vision ENT ENT ED: Denies ear pain Cardiovascular Cardiovascular: Denies chest pain Respiratory/Chest Respiratory/Chest: Denies cough Gastrointestinal Gastrointestinal: Denies abdominal pain Genitourinary Genitourinary ED: Denies dysuria Musculoskeletal Musculoskeletal: Denies arthralgias Integumentary Denies abscess Psychiatric Psychiatric: Denies anxiety Endocrine Endocrinology: Denies cold intolerance Hematologic/Lymphatic Hematologic/Lymphatic: Reports none Allergic/Immunologic Allergic/Immunologic ED: Denies mouth swelling or tongue swelling EXAM Physical Exam Narrative Exam Narrative: Healthy 15-year-old female no acute distress. Vital signs are stable afebrile. She does not look septic or toxic. CT pulse ox 96% on room air no signs hypoxia. H EENT exam unremarkable. Moist with membranes. Neck nontender no lymphadenopathy. Lungs clear to auscultation bilaterally. Heart regular rate and rhythm rate about 70 no murmur. Abdomen soft nontender normal bowel sounds no peritoneal signs. Extremities moves all 4. She has heel boots on both feet to prevent pressure ulcers. Neurologically she is awake. She is alert. She is answering questions and following commands. She knows the month and the year. She knows the president. She knows she is in the hospital. Const Vital Signs: 04/17/22 13:12 04/17/22 14:40 Temperature 98.3 F Temperature Source Axillary Pulse Rate 72 70 Respiratory Rate 16 Blood Pressure 130/55 H Blood Pressure Mean 80 Pulse Ox 96 Oxygen Delivery Method Room Air Positive well nourished, well developed and obese; Negative for cachectic, contractures or unkempt General Appearance ED: well developed; Negative for unkempt, cachectic or contractures Nutritional Appearance: obese; Negative for cachectic HEENT Reports moist mucous membranes; Denies dry mucous membranes Negative for trauma Mouth ED: No dry mucous membranes Mouth: No dry mucous membranes Eyes PERRL and EOMs intact bilaterally General Eye ED: Negative for pale conjunctiva or scleral icterus Neck no lymphadenopathy, supple and no JVD General: Negative for tenderness Lymph Lymphatic: Negative for other Chest Wall inspection of chest normal and palpation of chest normal Resp normal respiratory effort and clear to auscultation bilaterally Effort and Inspection: Negative for retractions Auscultation: Negative for rales, rhonchi or wheezes Cardio regular rate, regular rhythm, S1 normal heart sound, S2 normal heart sound and no murmurs Rate: Negative for bradycardia Rhythm: Negative for abnormal rhythm GI normal to inspection, nondistended, normoactive bowel sounds, non-tender, non-distended and no masses Inspection: Negative for abdominal distention Auscultation: normoactive bowel sounds Palpation: Negative for soft or tender Back/Spine no CVA tenderness General Back: Negative for CVA tenderness Cervical Spine: Negative for cervical spine tenderness Thoracic Spine / Upper Back: Negative for thoracic spinal tenderness Extremity normal to inspection General Extremety ED: Negative for edema or tenderness General Extremity: Negative for edema Neuro oriented x3 Neuro Narrative: Back. Awake alert. Knows president, day year and place Sensorium / Orientation: alert Motor Exam: strength 5/5 throughout Psych Appearance: Negative for unkempt Skin no rashes or lesions noted and no wounds Lesions: No lesion noted Rashes: No rashes noted Wounds: Negative for wounds noted MDM MDM MDM Narrative Medical decision making narrative: 67-year-old no acute distress with reported confusion and hallucinations. Labs and CAT scan will be obtained. Repeat exam a.m. at 4:34 PM patient doing well. Unchanged. The anemia is chronic. The uterine could be infected this could also be all contaminant from the suprapubic catheter. A culture was sent. I spoke to the hospitalist they are going to admit the patient for mental status changes observer. He may choose to hold antibiotics at this time Lab Data Attestation: I reviewed the patient's lab results. Lab results narrative: CBC shows a white count 8. H&H 9.3 and 38. That is consistent with her baseline anemia. Electrolytes show potassium of 3.4 and gap of 8. Normal BUN and creatinine. Glucose of 176. Liver enzymes are unremarkable. Urinalysis is positive for nitrates blood 25-50 red cells. 25-50 white cells and 1+ bacteria. This was a cath specimen. She has a chronic indwelling Guy catheter. Labs: Laboratory Results - last 24 hr 04/17/22 04/17/22 04/17/22 14:35 14:35 14:35 WBC 8.6 RBC 3.88 L Hgb 9.3 L Hct 30.9 L MCV 79.6 L MCH 24.0 L MCHC 30.1 L RDW Std Deviation 46.2 H RDW Coeff of Ash 15.9 H Plt Count 296 MPV 10.1 Sodium 137 Potassium 3.4 L Chloride 96 L Carbon Dioxide 33.0 H Anion Gap 8 BUN 16 Creatinine 0.78 Estim Creat Clear Calc 48.45 Est GFR (MDRD) Af Amer 94 Est GFR (MDRD) Non-Af 78 BUN/Creatinine Ratio 20.4 H Glucose 176 H Calcium 7.0 L Total Bilirubin 0.20 AST 17 ALT 9 L Alkaline Phosphatase 64 Total Protein 7.3 Albumin 2.0 L Globulin 5.3 H Albumin/Globulin Ratio 0.4 L Urine Color Yellow Urine Clarity Sl. Cloudy Urine pH 7.0 Ur Specific [place] 1.010 Urine Protein 500 H Urine Glucose (UA) 50 H Urine Ketones 5 H Urine Occult Blood 250 H Urine Nitrite Positive H Urine Bilirubin 1 H Urine Urobilinogen 1 H Ur Leukocyte Esterase 500 H Urine RBC 25-50 SEEN Urine WBC 25-50 SEEN Ur Squamous Epith Cells 0-5 SEEN Urine Bacteria 1+ Urine Mucus 0 SEEN Radiography Chest X-Ray - ED: 1 View, Read by ED Physician, Heart, Lungs, Mediastinum, Bony Structures, No Acute Disease and Chronic Changes Diagnostic Testing: Clinical Impression(s) from Imaging Studies Chest X-Ray 04/17/22 14:55 IMPRESSION: No acute abnormality is seen. Electronically Signed: Andrea Burch MD at 15:20 EDT , Chest x-ray, portable, single view shows no acute abnormality. Prior sternotomy. No acute process. Interpreted by myself and the radiologist. CAT scan of the brain was ordered due to mental status change but patient refused to have it done. States she could not lay supine due to her back. Rhythm Strip Rhythm Strip: Sinus Rhythm Rate: 72 Ectopy: None EKG Initial EKG: Attestation: I personally reviewed and interpreted this EKG as follows: Interpretation: Sinus Rhythm and No Acute Injury Pattern Comments: Normal sinus rhythm rate of 72 no acute signs of MT or ischemia. Right bundle branch block. Old inferior infarct. But no acute process. Discharge Plan Dx/Rx/DC Orders Clinical Impression: Altered mental status, Hx of diabetes mellitus, History of CVA in adulthood Disposition Disposition: Acute Care [facility]
[2022-04-17 14:40] VITALS: PULSE 70
[2022-04-17 14:41] LABS: Mucous, Urine 0 SEEN /hpf (<or=2+)
[2022-04-17 14:44] LABS: Hematocrit 30.9 % (37-47); Hemoglobin 9.3 g/dL (12.0-15.0); Mean Corp Hgb Conc 30.1 g/dL (32-36); Mean Corpuscular Volume 79.6 fL (81-99); Mean Platelet Vol. 10.1 fl (6.2-12.0); Platelet Count 296 K/mm3 (150-450); RBC Distribution Width CV 15.9 % (11.6-14.6); RBC Distribution Width SD 46.2 fl (35.1-43.9); Red Blood Count 3.88 M/mm3 (4.2-5.4); White Blood Count 8.6 K/mm3 (4.4-11.0)
[2022-04-17 14:45] LABS: Color, Urine Yellow (Yellow); Glucose, Dipstick 50 mg/dl (Normal); Ketone-Dipstick 5 mg/dl (Negative); Leukocyte Esterase-Dipstick 500 /ul (Negative); Nitrite-Dipstick Positive (Negative); Occult Blood-Urine 250 /ul (Negative); Protein-Dipstick 500 mg/dl (Negative); Urine Bilirubin Dipstick 1 mg/dL (Negative); Urine Clarity Sl. Cloudy (Clear); Urine Urobilinogen 1 mg/dl (Normal)
[2022-04-17 14:52] LABS: Bacteria 1+ /hpf (None Seen); Red Blood Cells-Urine 25-50 SEEN /hpf (0-5); Squamous Epithelial Cells - UA 0-5 SEEN /hpf (5-10); White Blood Cells 25-50 SEEN /hpf (0-5)
--- NOTE | 2022-04-17 14:55 | RAD_ITS ---
STUDY: X-RAY CHEST REASON FOR EXAM: Female, 67 years old. confusion TECHNIQUE: Single AP portable view of the chest. COMPARISON: Comparison is made with prior study dated 12/21/2021. FINDINGS: The lungs are clear and expanded. There is no demonstrated pleural abnormality. Sternal cerclage wires and vascular clips are present from a prior sternotomy and coronary artery bypass graft procedure (CABG). Normal mediastinum and sridhar. Normal visualized pulmonary arteries. There is atherosclerotic calcification of the aortic arch with tortuosity. Normal visualized thoracic spine. There is degenerative osteoarthritis of the bilateral shoulders. There is no demonstrated abnormality of the visualized soft tissue structures of the upper abdomen. RAD/Chest 1 View (Portable) IMPRESSION: No acute abnormality is seen. Electronically Signed: Andrea Burch MD at 15:20 EDT ,
[2022-04-17 15:03] LABS: ALB/GLOB Ratio 0.4 RATIO (0.9-2.4); AST(SGOT) 17 U/L (15-37); Alanine Aminotransfer ALT/SGPT 9 U/L (13-56); Alkaline Phosphatase 64 U/L (45-117); Anion Gap 8 (5-15); BUN 16 mg/dL (7-18); BUN/Creat Ratio 20.4 RATIO (10-20); Chloride 96 mmol/L (98-107); Creatinine, Serum 0.78 mg/dL (0.55-1.02); EST Glomerular Filtration Rate 78 mL/min (>60); Est Glom Filt Rate - Afr Amer 94 mL/min (>60); Estimated Creatinine Clearance 48.45 ml/min; Globulin 5.3 g/dL (2.2-4.2); Glucose 176 mg/dL (74-106); Potassium 3.4 mmol/L (3.5-5.1); Protein, Total 7.3 g/dL (6.4-8.2); Sodium Level 137 mmol/L (136-145)
[2022-04-17 17:17] VITALS: BP 129/53; PULSE 80; RESP 16; TEMP 36.7; O2SAT 96
--- NOTE | 2022-04-17 17:48 | PCM.HP.STD ---
Documented by User: SARAH Guidry 04/17/22 18:13 HPI - General General Date of Admission: 04/17/22 Date of Service: 04/17/22 Chief Complaint: Altered Mental Status HPI Narrative [place] JIANG, is a 67 F who presents with complaints of altered mental status. Patient reports that she was seeing snakes last night and was subsequently given seroquel. Patients urine positive for bacteria and leukocytes but this is chronic for patient. She denies fever, chills, nausea, vomiting. Patient has a chronic indwelling catheter. Patient was on hospice but this was revoked by patient and her family. Patient currently at home with her son as her caregiver. [facility] Medical History Anxiety Chest pain Chronic pain Colostomy in place Congestive heart failure (CHF) COPD (chronic obstructive pulmonary disease) Coronary artery disease Depression Wright catheter in place GERD (gastroesophageal reflux disease) Hearing loss, left Hearing loss, right Hypertension Osteomyelitis due to secondary diabetes Past heart attack Sleep apnea Smoker Smoker Stroke/cerebrovascular accident Stroke/cerebrovascular accident TIA (transient ischemic attack) Vulva cancer Wound cellulitis after surgery Home Medications metoprolol tartrate 25 mg tablet 25 mg PO BID HTN 03/24/15 [History Last Taken 12/21/21] duloxetine 60 mg capsule,delayed release 60 mg PO DAILY DEPRESSION 01/05/21 [History Last Taken 12/21/21] insulin glargine 100 unit/mL (3 mL) subcutaneous pen 65 units subcut QHS DM 01/05/21 [History Last Taken 12/20/21] hydrocodone-acetaminophen 5-325mg 5mg-325mg 2 tab PO QHS 04/27/21 [History Last Taken 12/20/21] diphenhydramine HCl 25 mg capsule 25 mg PO BID PRN PRN Itching 12/21/21 [History Last Taken 12/18/21] fluticasone propionate 50 mcg/actuation nasal spray,suspension 2 spray intranasal DAILY ALLERGIES 12/21/21 [History Last Taken 12/21/21] hydrocodone-acetaminophen 5-325mg 5mg-325mg 2 tab PO Q4H PRN Pain 12/21/21 [History Last Taken 12/18/21] insulin lispro 100 unit/mL subcutaneous pen (Humalog KwikPen (U-100) Insulin) 10 unit subcut BREAKFAST DM 12/21/21 [History Last Taken 12/21/21] nystatin 100,000 unit/gram topical cream 1 applic topical BID SKIN FOLDS 12/21/21 [History Last Taken 12/21/21] diazepam 2 mg tablet (Valium) 2 mg PO BID PRN Anxiety 04/17/22 [History Last Taken Unknown] diphenhydramine-calamine lotion 1 ea topical BID PRN PRN anti itch 04/17/22 [History Last Taken Unknown] divalproex 125 mg tablet,delayed release (Depakote) 125 mg PO BID 04/17/22 [History Last Taken Unknown] fluconazole 150 mg tablet (Diflucan) 150 mg PO Q3D . 04/17/22 [History Last Taken Unknown] insulin lispro 100 unit/mL subcutaneous pen 2 - 10 unit subcut TIDCM 04/17/22 [History Last Taken Unknown] insulin lispro 100 unit/mL subcutaneous pen 10 unit subcut DINNER . 04/17/22 [History Last Taken Unknown] insulin lispro 100 unit/mL subcutaneous pen (Humalog KwikPen (U-100) Insulin) 5 unit subcut LUNCH . 04/17/22 [History Last Taken Unknown] levetiracetam 750 mg tablet (Keppra) 750 mg PO BID . 04/17/22 [History Last Taken Unknown] methadone 5 mg tablet 5 mg PO BID 04/17/22 [History Last Taken Unknown] naloxone 4 mg/actuation nasal spray 4 mg intranasal PRN . 04/17/22 [History Last Taken Unknown] omeprazole magnesium 20 mg capsule,delayed release (Acid Pile Driver Operator Barge Mounted (omeprazole)) 20 mg PO DAILY acid reflux 04/17/22 [History Last Taken Unknown] ondansetron 4 mg disintegrating tablet 4 mg PO Q8H PRN Nausea 04/17/22 [History Last Taken Unknown] oxybutynin chloride 10 mg tablet,extended release 24 hr (Ditropan XL) 10 mg PO DAILY 04/17/22 [History Last Taken Unknown] quetiapine 25 mg tablet (Seroquel) 25 mg PO QHS 04/17/22 [History Last Taken Unknown] sennosides 8.6 mg tablet (senna) 8.6 mg PO BID PRN Constipation 04/17/22 [History Last Taken Unknown] Allergy/AdvReac Type Severity Reaction Status Date / Time gabapentin Allergy Other Verified 04/17/22 13:15 iodine Allergy Rash Verified 04/27/21 18:10 lorazepam [From Ativan] Allergy Other Verified 04/17/22 13:15 povidone-iodine Allergy Itching Verified 04/27/21 18:10 [From Betadine] prednisone Allergy tiny Verified 04/27/21 18:10 mouth ulcers Family History Other Cancer Diabetes Heart disease Surgical History H/O foot surgery History of cholecystectomy History of cholecystectomy Hx of CABG Hx of CABG (~01/2015) Previous back surgery Social History Smoking Status: Current every day smoker tobacco type: cigarettes ROS Constitutional Constitutional: Denies anorexia, change in weight, chills, fatigue, fever(s) or malaise Cardiovascular Cardiovascular: Denies chest pain, edema, palpitations or syncope Respiratory/Chest Respiratory/Chest: Denies cough, shortness of breath at rest, shortness of breath with exertion or wheezing Gastrointestinal Gastrointestinal: Denies abdominal pain, constipation, diarrhea, nausea or vomiting Genitourinary Genitourinary: Denies dysuria Musculoskeletal Musculoskeletal: Denies back pain, extremity pain, joint pain or joint stiffness Integumentary Integumentary: Denies dry skin Neurologic Neurologic: Denies abnormal gait, abnormal speech, confusion or dizziness Psychiatric Psychiatric: Reports hallucinations Endocrine Endocrinology: Denies change in body appearance Hematologic/Lymphatic Hematologic/Lymphatic: Denies anemia or easy bleeding Vital Signs Vital Signs Vital Signs: 04/17/22 13:12 04/17/22 14:40 04/17/22 17:17 Temperature 98.3 F 98.1 F Temperature Source Axillary Temporal Pulse Rate 72 70 80 Respiratory Rate 16 16 Blood Pressure 130/55 H 129/53 H Blood Pressure Mean 80 78 Pulse Ox 96 96 Oxygen Delivery Method Room Air Room Air 04/17/22 17:17 Temperature 98.1 F Temperature Source Temporal Pulse Rate 80 Respiratory Rate 16 Blood Pressure 129/53 H Blood Pressure Mean 78 Pulse Ox 96 Oxygen Delivery Method Room Air Weight Weight: 234 lb 5.622 oz Body Mass Index (BMI) 38.9 Physical Exam Const alert, oriented x3 and no apparent distress HEENT normocephalic, head/scalp atraumatic and moist oral mucous membranes Eyes conjunctivae normal and no scleral icterus Neck supple General: trachea midline Lymph Lymphatic: no lymphadenopathy noted Resp normal respiratory effort, normal air movement and clear to auscultation bilaterally Cardio regular rate, regular rhythm, S1 normal heart sound and S2 normal heart sound GI normal to inspection, nondistended, normoactive bowel sounds, soft to palpation and non-tender Extremity normal capillary refill General Extremity: edema bilateral lower extremity Details: mild Skin Lesions: no lesions Rashes: no rashes Neuro oriented x3, moves all extremities, no focal motor deficits and no sensory deficits noted Psych Attitude: calm Speech: normal speech Thought Content: hallucination(s) Results Lab / Micro Data Result Diagrams: 04/17/22 14:35 04/17/22 14:35 Labs: Laboratory Results - last 24 hr 04/17/22 14:35: WBC 8.6, RBC 3.88 L, Hgb 9.3 L, Hct 30.9 L, MCV 79.6 L, MCH 24.0 L, MCHC 30.1 L, RDW Std Deviation 46.2 H, RDW Coeff of Ash 15.9 H, Plt Count 296, MPV 10.1 04/17/22 14:35: Sodium 137, Potassium 3.4 L, Chloride 96 L, Carbon Dioxide 33.0 H, Anion Gap 8, BUN 16, Creatinine 0.78, Estim Creat Clear Calc 48.45, Est GFR (MDRD) Af Amer 94, Est GFR (MDRD) Non-Af 78, BUN/Creatinine Ratio 20.4 H, Glucose 176 H, Calcium 7.0 L, Total Bilirubin 0.20, AST 17, ALT 9 L, Alkaline Phosphatase 64, Total Protein 7.3, Albumin 2.0 L, Globulin 5.3 H, Albumin/Globulin Ratio 0.4 L 04/17/22 14:35: Urine Color Yellow, Urine Clarity Sl. Cloudy, Urine pH 7.0, Ur Specific [place] 1.010, Urine Protein 500 H, Urine Glucose (UA) 50 H, Urine Ketones 5 H, Urine Occult Blood 250 H, Urine Nitrite Positive H, Urine Bilirubin 1 H, Urine Urobilinogen 1 H, Ur Leukocyte Esterase 500 H, Urine RBC 25-50 SEEN, Urine WBC 25-50 SEEN, Ur Squamous Epith Cells 0-5 SEEN, Urine Bacteria 1+, Urine Mucus 0 SEEN Rhythm Strip Rhythm Strip: Sinus Rhythm Rate: 72 Ectopy: None Radiology Impression Chest X-Ray 04/17/22 14:55 IMPRESSION: No acute abnormality is seen. Electronically Signed: Andrea Burch MD at 15:20 EDT , Assessment & Plan Assessment/Plan (1) Altered mental status: PLAN: Plan 1. Acute Encephalopathy, unclear etiology -Admit to Med surg for observation -Will hold seroquel 2. Abnormal Urinalysis -Patient is positive for bacteria and leukocytes, however this is chronic. Patient has a normal WBC, no fever, and is asymptomatic for urinary symptoms -Maintain wright -Normal saline 75 ml/hr -CBC in am 3. Chronic Anemia -Hgb 9.6, consistent with baseline -CBC in am 4. Diabetes mellitus type 2 -ACHS blood sugars with SSI ordered -Continue lantus 5. Seizures -Continue Keppra 6. Depression - Continue amitriptyline, duloxetine 7. Chronic Pain -Continue methadone, vicodin DVT prophylaxis- Not indicated, observation status This patient was seen under the supervision of Dr. Benz. 31 minutes spent in coordination of care of patient. Documented by User: Dr. 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 Past heart attack Sleep apnea Smoker Smoker Stroke/cerebrovascular accident Stroke/cerebrovascular accident TIA (transient ischemic attack) Vulva cancer Wound cellulitis after surgery Home Medications metoprolol tartrate 25 mg tablet 25 mg PO BID HTN 03/24/15 [History Last Taken 12/21/21] duloxetine 60 mg capsule,delayed release 60 mg PO DAILY DEPRESSION 01/05/21 [History Last Taken 12/21/21] insulin glargine 100 unit/mL (3 mL) subcutaneous pen 65 units subcut QHS DM 01/05/21 [History Last Taken 12/20/21] hydrocodone-acetaminophen 5-325mg 5mg-325mg 2 tab PO QHS 04/27/21 [History Last Taken 12/20/21] diphenhydramine HCl 25 mg capsule 25 mg PO BID PRN PRN Itching 12/21/21 [History Last Taken 12/18/21] fluticasone propionate 50 mcg/actuation nasal spray,suspension 2 spray intranasal DAILY ALLERGIES 12/21/21 [History Last Taken 12/21/21] hydrocodone-acetaminophen 5-325mg 5mg-325mg 2 tab PO Q4H PRN Pain 12/21/21 [History Last Taken 12/18/21] insulin lispro 100 unit/mL subcutaneous pen (Humalog KwikPen (U-100) Insulin) 10 unit subcut BREAKFAST DM 12/21/21 [History Last Taken 12/21/21] nystatin 100,000 unit/gram topical cream 1 applic topical BID SKIN FOLDS 12/21/21 [History Last Taken 12/21/21] diazepam 2 mg tablet (Valium) 2 mg PO BID PRN Anxiety 04/17/22 [History Last Taken Unknown] diphenhydramine-calamine lotion 1 ea topical BID PRN PRN anti itch 04/17/22 [History Last Taken Unknown] divalproex 125 mg tablet,delayed release (Depakote) 125 mg PO BID 04/17/22 [History Last Taken Unknown] fluconazole 150 mg tablet (Diflucan) 150 mg PO Q3D . 04/17/22 [History Last Taken Unknown] insulin lispro 100 unit/mL subcutaneous pen 2 - 10 unit subcut TIDCM 04/17/22 [History Last Taken Unknown] insulin lispro 100 unit/mL subcutaneous pen 10 unit subcut DINNER . 04/17/22 [History Last Taken Unknown] insulin lispro 100 unit/mL subcutaneous pen (Humalog KwikPen (U-100) Insulin) 5 unit subcut LUNCH . 04/17/22 [History Last Taken Unknown] levetiracetam 750 mg tablet (Keppra) 750 mg PO BID . 04/17/22 [History Last Taken Unknown] methadone 5 mg tablet 5 mg PO BID 04/17/22 [History Last Taken Unknown] naloxone 4 mg/actuation nasal spray 4 mg intranasal PRN . 04/17/22 [History Last Taken Unknown] omeprazole magnesium 20 mg capsule,delayed release (Acid Pile Driver Operator Barge Mounted (omeprazole)) 20 mg PO DAILY acid reflux 04/17/22 [History Last Taken Unknown] ondansetron 4 mg disintegrating tablet 4 mg PO Q8H PRN Nausea 04/17/22 [History Last Taken Unknown] oxybutynin chloride 10 mg tablet,extended release 24 hr (Ditropan XL) 10 mg PO DAILY 04/17/22 [History Last Taken Unknown] quetiapine 25 mg tablet (Seroquel) 25 mg PO QHS 04/17/22 [History Last Taken Unknown] sennosides 8.6 mg tablet (senna) 8.6 mg PO BID PRN Constipation 04/17/22 [History Last Taken Unknown] Allergy/AdvReac Type Severity Reaction Status Date / Time gabapentin Allergy Other Verified 04/17/22 13:15 iodine Allergy Rash Verified 04/27/21 18:10 lorazepam [From Ativan] Allergy Other Verified 04/17/22 13:15 povidone-iodine Allergy Itching Verified 04/27/21 18:10 [From Betadine] prednisone Allergy tiny Verified 04/27/21 18:10 mouth ulcers Family History Other Cancer Diabetes Heart disease Surgical History H/O foot surgery History of cholecystectomy History of cholecystectomy Hx of CABG Hx of CABG (~01/2015) Previous back surgery Social History Smoking Status: Current every day smoker tobacco type: cigarettes Results Lab / Micro Data Result Diagrams: 04/17/22 14:35 04/17/22 14:35 Assessment & Plan Assessment/Plan (1) Altered mental status: Charges/Coding Addendum Addendum: Patient was seen and examined today independently of Gloria Jack, she was sent to the emergency room today at the direction of her son, she is on a home hospice patient but he revoked hospice and sent the patient in for evaluation. Patient has been having some hallucinations at home over the last 2 to 3 days, she was given Seroquel last night for these hallucinations. Apparently patient has been recently in a nursing home facility and was taken out by her son and hospice was activated to help him care for the patient at home. I talked to the son by phone, he verified that the patient is a full code now and that he wants treatment, I had a long discussion with him concerning the appropriateness of care being that the patient has many serious medical problems at this time and I asked him to think about what he would want done if the patient refused to eat-would he want a feeding tube placed? On examination she appeared much older than her stated age, she appears agitated at times and belligerent but knows she is in the hospital and answers questions appropriately. She does not appear to be in any distress. Vital signs as documented. Skin warm and dry, patient was somewhat uncooperative during examination of her skin sites-she appears to have a wound on her left foot near a previous amputation site of her fourth toe on the left foot. Neck without JVD, thyroid appears normal, trachea is midline, neck is supple. Lungs clear, normal air movement was noted. Heart exam notable for regular rhythm, normal sounds and absence of murmurs, rubs or gallops. Abdomen unremarkable and without evidence of organomegaly, masses, or abdominal aortic enlargement, bowel sounds are present in all 4 quadrants, no abdominal tenderness was noted. Extremities nonedematous, no cyanosis was noted, no clubbing was noted. Neuro: Cranial nerves II through XII are grossly intact, no focal motor deficits were noted, sensation to light touch and pinprick is intact, motor exam 5/5 throughout. Psych: Patient is alert and oriented x3, patient is somewhat belligerent at the time of examination and is angry at times, cursing. #1 altered mental status-etiology unclear, could be secondary to polypharmacy, I will review the patient's medications and may need to decrease in the patient's medications. #2 vesicovaginal fistula-complicates care recovery and prognosis #3 diabetic neuropathy-patient is currently on gabapentin #4 type 2 diabetes-blood sugars will be monitored, sliding scale insulin will be given #5 coronary artery disease-patient will remain on her home medications #6 chronic obstructive pulmonary disease-patient is currently on no oxygen, home medications will be continued #7 chronic decubiti-patient fierro a history of chronic decubiti, I will have wound care see the patient tomorrow, I will have podiatry see the patient tomorrow #8 bacteriuria-at this time, I do not believe the patient has an active urinary tract infection, I will monitor the patient for changes in her vitals (increased temperature, tachycardia) and monitor her labs. It is my opinion, that the patient's son has a very poor understanding of what hospice care exactly is, he is attempting to take care of the patient at home with the help of hospice, patient has multiple medical problems and I do not think this will end well. Patient's son confirmed that the patient is a full code. I have reviewed Gloria Jack's history and physical including her medical assessment and plan of care and with the above additions endorse it. Total clinical time spent by myself addressing the patient's medical issues, reviewing the data, and collaborating with the patient's care team: 50 minutes Visit Charges OBSV E&M: [id number] Initial observation care L3
[2022-04-17 18:09] VITALS: BMI 38.9
--- NOTE | 2022-04-17 18:46 | NURSING ---
Patient is refusing to allow this RN to ask her any admission questions. She states. you're not my nurse! and will not allow the nurse to perform an assessment or get VS.
--- NOTE | 2022-04-17 18:47 | NURSING ---
Kendra from [facility] called to [facility] and states she is sending someone from Hospice to come see patient.
[2022-04-17 20:00] VITALS: BP 143/53; PULSE 79; RESP 18; TEMP 37; O2SAT 93
[2022-04-17] MEDS: 0.9% Normal Saline 1,000 ML 75 ML IV (20:14)
[2022-04-17] MEDS: 0.9% Saline Lock 10 ML Syringe IV (20:14)
[2022-04-17] MEDS: Insulin Glargine-YFGN 100 UNIT/ML Pen 65 UNIT SC (22:38)
[2022-04-17 22:40] VITALS: PULSE 82
[2022-04-17] MEDS: Metoprolol Tartrate 25 MG Tablet PO (22:40)
[2022-04-17] MEDS: levETIRAcetam 750 MG Tablet PO (22:42)
[2022-04-17] MEDS: Divalproex Sodium 125 MG Tablet PO (22:42)
[2022-04-17] MEDS: HYDROcodone Bitartrate/Apap 5/325 Tablet PO (22:42)
[2022-04-17] MEDS: Glucerna Shake 120 ML LIQUID PO (22:49)
[2022-04-17 23:32] LABS: Bedside Glucose 130 mg/dL (74-106)
[2022-04-18 02:00] VITALS: BP 128/45; PULSE 72; RESP 16; TEMP 36.7; O2SAT 96
[2022-04-18 04:38] LABS: Absolute Lymphocyte Count 2.44 X10^3/uL (0.83-4.51); Absolute Neutrophil Count 3.3 X10^3/uL (2.0-7.7); Basophil# 0.03 X10^3/uL; Basophil% 0.5 % (0-1); Eosinophil# 0.29 X10^3/uL; Eosinophils% 4.4 % (0-5); Hematocrit 28.1 % (37-47); Hemoglobin 8.5 g/dL (12.0-15.0); Lymphocyte # 2.44 X10^3/ul (0.83-4.51); Lymphocyte % 36.6 % (19-41); Mean Corp Hgb Conc 30.2 g/dL (32-36); Mean Corpuscular Volume 79.4 fL (81-99); Mean Platelet Vol. 10.2 fl (6.2-12.0); Monocyte# 0.62 X10^3/uL; Monocyte% 9.3 % (0-10); NRBC Flagged by Analyzer 0 % (0-5); Neutrophil # 3.25 X10^3/uL (2.7-7.7); Neutrophil % 48.7 % (47-70); Platelet Count 261 K/mm3 (150-450); RBC Distribution Width CV 15.7 % (11.6-14.6); RBC Distribution Width SD 45.1 fl (35.1-43.9); Red Blood Count 3.54 M/mm3 (4.2-5.4); White Blood Count 6.7 K/mm3 (4.4-11.0)
[2022-04-18 05:13] LABS: Anion Gap 7 (5-15); BUN 16 mg/dL (7-18); BUN/Creat Ratio 24.3 RATIO (10-20); Calcium,Total 6.7 mg/dL (8.5-10.1); Chloride 100 mmol/L (98-107); Creatinine, Serum 0.66 mg/dL (0.55-1.02); EST Glomerular Filtration Rate 95 mL/min (>60); Est Glom Filt Rate - Afr Amer 115 mL/min (>60); Estimated Creatinine Clearance 48.45 ml/min; Glucose 103 mg/dL (74-106); Potassium 2.9 mmol/L (3.5-5.1); Sodium Level 138 mmol/L (136-145)
[2022-04-18 08:00] VITALS: BP 119/49; PULSE 79; RESP 18; TEMP 36.5; O2SAT 98
[2022-04-18] MEDS: HYDROcodone Bitartrate/Apap 5/325 Tablet PO (08:00)
--- NOTE | 2022-04-18 08:55 | WOUNDNOTE ---
wound photo: right lateral foot
--- NOTE | 2022-04-18 08:56 | WOUNDNOTE ---
wound photo: right plantar foot
--- NOTE | 2022-04-18 08:56 | WOUNDNOTE ---
wound photo: right great toe
--- NOTE | 2022-04-18 08:57 | WOUNDNOTE ---
wound photo: left lateral foot
--- NOTE | 2022-04-18 08:58 | WOUNDNOTE ---
wound photo: sacrum
--- NOTE | 2022-04-18 08:59 | WOUNDNOTE ---
skin photo: buttocks/posterior thighs
--- NOTE | 2022-04-18 09:00 | WOUNDNOTE ---
wound photo: suprapubic
--- NOTE | 2022-04-18 09:07 | WOUNDNOTE ---
patient requested that the ostomy appliance be changed. appliance was just changed on 04/16/22 and was intact, but changed appliance per pts request. removed pouch and flange. there was a small amount of unformed brown stool noted in the appliance. peristomal skin is intact. stoma is well budded and pink. cleansed skin with warm water. pat dry. applied a new flat 2 piece Carla appliance with a small amount of stoma paste. pt tolerated well.
[2022-04-18] MEDS: 0.9% Normal Saline 1,000 ML 75 ML IV (10:10)
[2022-04-18] MEDS: Divalproex Sodium 125 MG Tablet PO (10:12)
[2022-04-18] MEDS: Fluticasone 0.05% 1 SPRAY NASAL.SRY 2 SPRAY NASAL (10:12)
[2022-04-18 10:13] VITALS: PULSE 80
[2022-04-18] MEDS: levETIRAcetam 750 MG Tablet PO (10:13)
[2022-04-18] MEDS: Metoprolol Tartrate 25 MG Tablet PO (10:13)
[2022-04-18] MEDS: Potassium Chloride Oral Tablet 20 MEQ PO (10:20)
[2022-04-18] MEDS: Pantoprazole Sodium 20 MG Tablet PO (10:20)
[2022-04-18] MEDS: Nystatin Ointment 1 APPLIC TOPICAL (10:21)
[2022-04-18] MEDS: DULoxetine Hcl 60 MG Capsule PO (10:22)
[2022-04-18] MEDS: Potassium Chloride Oral Tablet 20 MEQ 40 MEQ PO (10:24)
[2022-04-18] MEDS: Glucerna Shake 120 ML LIQUID PO (10:30)
--- NOTE | 2022-04-18 11:55 | PCM.CONS.GEN ---
Assessment & Plan Assessment/Plan (1) Non-pressure chronic ulcer of other part of right foot with fat layer exposed: (2) Non-pressure chronic ulcer of other part of left foot with fat layer exposed: (3) Type 2 diabetes mellitus with diabetic polyneuropathy: PLAN: Plan I reviewed and discussed her case today. Debridement was performed today as noted to all of the ulcer sites. Verbal consent was obtained and medical scissor and pickup were used to remove eschar and fibrous tissue. Minimal bleeding was noted in which gauze pressure was applied for hemostasis. She tolerated this well and a secondary dressing was applied. The following work up and care recommendations were made: Dressing: Santyl applied nickel thickness to bilateral lateral foot ulcers daily. Aquacel Ag to prior fifth toe amputation site of the left foot daily. Wash: Soap and water Offload: To avoid laying directly on the wounds by placing a pillow behind her lower leg so this is not making contact with the bed Vascular: Her feet are warm to touch and is noted she is on a palliative plan. Edema: To perform intermittent elevation to reduce edema exacerbation Infection: She lacks local signs of infection on her feet and I do not recommend culture or antibiotics for her feet Pain: She appears to be neuropathic and this is controlled Host factors: Her multiple comorbidities are noted. Medical management per hospitalist services appreciated. She will return home on more of a palliative plan and it is noted she was recently on hospice. I answered all the patient's questions. I offered to see her on a monthly palliative basis and she can follow-up at the wound healing center. Thank you for the consultation. Please do not hesitate to call if you have any questions. Vidya Zamorano DPM, LOCATED [facility]IN [facility] [phone] HPI Consult Data Date of Consult: 04/18/22 HPI Narrative Reason for Consultation: Right and left foot ulcers HPI Narrative: [place] JIANG, is a 67 F with Multiple comorbidities was admitted for altered mental status. She is known to have bacteremia. She was also recently on hospice and this has been revoked by family. She has been known to be hostile during this hospital admission however appears to be quite calm during my evaluation and is cooperative. She denies foot pain. She reports loss of sensation to the feet. These are chronic ulcers and she has been having the dressing changed at home. Her son helps her. [facility] Medical History Anxiety Chest pain Chronic pain Colostomy in place Congestive heart failure (CHF) COPD (chronic obstructive pulmonary disease) Coronary artery disease Depression Guy catheter in place GERD (gastroesophageal reflux disease) Hearing loss, left Hearing loss, right Hypertension Osteomyelitis due to secondary diabetes Past heart attack Sleep apnea Smoker Smoker Stroke/cerebrovascular accident Stroke/cerebrovascular accident TIA (transient ischemic attack) Vulva cancer Wound cellulitis after surgery Home Medications metoprolol tartrate 25 mg tablet 25 mg PO BID HTN 03/24/15 [History Last Taken 12/21/21] duloxetine 60 mg capsule,delayed release 60 mg PO DAILY DEPRESSION 01/05/21 [History Last Taken 12/21/21] insulin glargine 100 unit/mL (3 mL) subcutaneous pen 65 units subcut QHS DM 01/05/21 [History Last Taken 12/20/21] hydrocodone-acetaminophen 5-325mg 5mg-325mg 2 tab PO QHS 04/27/21 [History Last Taken 12/20/21] diphenhydramine HCl 25 mg capsule 25 mg PO BID PRN PRN Itching 12/21/21 [History Last Taken 12/18/21] fluticasone propionate 50 mcg/actuation nasal spray,suspension 2 spray intranasal DAILY ALLERGIES 12/21/21 [History Last Taken 12/21/21] hydrocodone-acetaminophen 5-325mg 5mg-325mg 2 tab PO Q4H PRN Pain 12/21/21 [History Last Taken 12/18/21] insulin lispro 100 unit/mL subcutaneous pen (Humalog KwikPen (U-100) Insulin) 10 unit subcut BREAKFAST DM 12/21/21 [History Last Taken 12/21/21] nystatin 100,000 unit/gram topical cream 1 applic topical BID SKIN FOLDS 12/21/21 [History Last Taken 12/21/21] diazepam 2 mg tablet (Valium) 2 mg PO BID PRN Anxiety 04/17/22 [History Last Taken Unknown] diphenhydramine-calamine lotion 1 ea topical BID PRN PRN anti itch 04/17/22 [History Last Taken Unknown] divalproex 125 mg tablet,delayed release (Depakote) 125 mg PO BID 04/17/22 [History Last Taken Unknown] fluconazole 150 mg tablet (Diflucan) 150 mg PO WESA yeast prevention 04/17/22 [History Last Taken Unknown] insulin lispro 100 unit/mL subcutaneous pen 2 - 10 unit subcut TIDCM 04/17/22 [History Last Taken Unknown] insulin lispro 100 unit/mL subcutaneous pen 10 unit subcut DINNER . 04/17/22 [History Last Taken Unknown] insulin lispro 100 unit/mL subcutaneous pen (Humalog KwikPen (U-100) Insulin) 5 unit subcut LUNCH . 04/17/22 [History Last Taken Unknown] levetiracetam 750 mg tablet (Keppra) 750 mg PO BID . 04/17/22 [History Last Taken Unknown] methadone 5 mg tablet 5 mg PO BID 04/17/22 [History Last Taken Unknown] naloxone 4 mg/actuation nasal spray 4 mg intranasal PRN . 04/17/22 [History Last Taken Unknown] omeprazole magnesium 20 mg capsule,delayed release (Acid Retail Planner (omeprazole)) 20 mg PO DAILY acid reflux 04/17/22 [History Last Taken Unknown] ondansetron 4 mg disintegrating tablet 4 mg PO Q8H PRN Nausea 04/17/22 [History Last Taken Unknown] oxybutynin chloride 10 mg tablet,extended release 24 hr (Ditropan XL) 10 mg PO DAILY 04/17/22 [History Last Taken Unknown] quetiapine 25 mg tablet (Seroquel) 25 mg PO QHS 04/17/22 [History Last Taken Unknown] sennosides 8.6 mg tablet (senna) 8.6 mg PO BID PRN Constipation 04/17/22 [History Last Taken Unknown] Allergy/AdvReac Type Severity Reaction Status Date / Time gabapentin Allergy Other Verified 04/17/22 13:15 iodine Allergy Rash Verified 04/27/21 18:10 lorazepam [From Ativan] Allergy Other Verified 04/17/22 13:15 povidone-iodine Allergy Itching Verified 04/27/21 18:10 [From Betadine] prednisone Allergy tiny Verified 04/27/21 18:10 mouth ulcers Family History Other Cancer Diabetes Heart disease Surgical History H/O foot surgery History of cholecystectomy History of cholecystectomy Hx of CABG Hx of CABG (~01/2015) Previous back surgery Social History Smoking Status: Current every day smoker tobacco type: cigarettes ROS Constitutional Constitutional: Denies chills Musculoskeletal Musculoskeletal: Reports numbness Integumentary Integumentary: Reports wounds Neurologic Neurologic: Reports sensory deficit Psychiatric Psychiatric: Reports anxiety Physical Exam Const alert and oriented x3 General Appearance: cooperative HEENT normocephalic Extremity Extremity Narrative: No calf tenderness Diminished pulses Foot temperature is warm to touch including the hindfoot to the toes No ischemia bilateral Muscle wasting noted with muscle weakness with active range of motion of toes and ankles bilateral lower extremities Left fifth toe amputation with remaining excess skin flap No bogginess or fluctuance bilateral lower extremity General Extremity: edema and no tenderness to palpation of joints or extremities; Negative for cyanosis Skin Skin Narrative: no purulence, no streaking, no odor, no infection bilateral lower extremities. Bilateral lower extremity skin is hairless and atrophic. No ecchymosis bilateral. Right foot: Fibrous eschar wound to the lateral foot that is partially adhered measures 1.7 x 1 x 0.1 cm and post debridement 1.8 x 1.1 x 0.1 cm without underlying deep tissue exposure necrosis or foreign body. Left foot: Fibrous eschar wound to lateral foot that is partially adhered measures 4.1 x 1.2 x 0.1 cm and postdebridement 4.2 x 1.3 x 0.1 cm without underlying deep tissue exposure, necrosis, or foreign body. At the fifth toe amputation site there appears to be some excess remaining skin that is hypergranular. There is no deep tissue exposure here either General Skin Exam: Negative for erythema Neuro Neuro Narrative: lack of normal epicritic sensation via light touch is consistent with likely neuropathy status Psych cooperative and affect normal Lab / Micro Data Result Diagrams: 04/18/22 03:46 04/18/22 03:46 Labs: Laboratory Results - last 24 hr 04/17/22 14:35: WBC 8.6, RBC 3.88 L, Hgb 9.3 L, Hct 30.9 L, MCV 79.6 L, MCH 24.0 L, MCHC 30.1 L, RDW Std Deviation 46.2 H, RDW Coeff of Ash 15.9 H, Plt Count 296, MPV 10.1 04/17/22 14:35: Sodium 137, Potassium 3.4 L, Chloride 96 L, Carbon Dioxide 33.0 H, Anion Gap 8, BUN 16, Creatinine 0.78, Estim Creat Clear Calc 48.45, Est GFR (MDRD) Af Amer 94, Est GFR (MDRD) Non-Af 78, BUN/Creatinine Ratio 20.4 H, Glucose 176 H, Calcium 7.0 L, Total Bilirubin 0.20, AST 17, ALT 9 L, Alkaline Phosphatase 64, Total Protein 7.3, Albumin 2.0 L, Globulin 5.3 H, Albumin/Globulin Ratio 0.4 L 04/17/22 14:35: Urine Color Yellow, Urine Clarity Sl. Cloudy, Urine pH 7.0, Ur Specific [place] 1.010, Urine Protein 500 H, Urine Glucose (UA) 50 H, Urine Ketones 5 H, Urine Occult Blood 250 H, Urine Nitrite Positive H, Urine Bilirubin 1 H, Urine Urobilinogen 1 H, Ur Leukocyte Esterase 500 H, Urine RBC 25-50 SEEN, Urine WBC 25-50 SEEN, Ur Squamous Epith Cells 0-5 SEEN, Urine Bacteria 1+, Urine Mucus 0 SEEN 04/17/22 22:35: POC Glucose 130 H 04/18/22 03:46: WBC 6.7, RBC 3.54 L, Hgb 8.5 L, Hct 28.1 L, MCV 79.4 L, MCH 24.0 L, MCHC 30.2 L, RDW Std Deviation 45.1 H, RDW Coeff of Ash 15.7 H, Plt Count 261, MPV 10.2, Immature Gran % (Auto) 0.500, Neut % (Auto) 48.7, Lymph % (Auto) 36.6, [place] % (Auto) 9.3, Eos % (Auto) 4.4, Baso % (Auto) 0.5, Absolute Neuts (auto) 3.3, Absolute Lymphs (auto) 2.44, Nucleated RBC % 0 04/18/22 03:46: Sodium 138, Potassium 2.9 L, Chloride 100, Carbon Dioxide 31.0, Anion Gap 7, BUN 16, Creatinine 0.66, Estim Creat Clear Calc 48.45, Est GFR (MDRD) Af Amer 115, Est GFR (MDRD) Non-Af 95, BUN/Creatinine Ratio 24.3 H, Glucose 103, Calcium 6.7 L Micro: Microbiology 04/17/22 14:35 Urine Catheter - Catheter Urine Culture - Preliminary Gram negative [place] Rhythm Strip Rhythm Strip: Sinus Rhythm Rate: 72 Ectopy: None Radiology Impression Chest X-Ray 04/17/22 14:55 IMPRESSION: No acute abnormality is seen. Electronically Signed: Andrea Burch MD at 15:20 EDT ,
--- NOTE | 2022-04-18 12:48 | DCINST_ITS ---
Discharge Instructions Diet Discharge Diet: Low fat / Low cholesterol and 1800 Calorie Control Diet Activity Discharge Activity: Return to Normal Activity Dressing / Incision Call your doctor if your incision/area has: Continuous Slow Oozing, Sudden Increased Bleeding, Increased Pain/ Swelling, Increased Redness, Foul Smelling Discharge and Swelling at the incision site Call your doctor if you observe: Fever of 101 or Higher Additional Dressing/Incision Instructions:: Dressing: Santyl applied nickel thickness to bilateral lateral foot ulcers daily. Aquacel Ag to prior fifth toe amputation site of the left foot daily. Wash: Soap and water Offload: To avoid laying directly on the wounds by placing a pillow behind her lower leg so this is not making contact with the bed Vascular: Her feet are warm to touch and is noted she is on a palliative plan. Edema: To perform intermittent elevation to reduce edema exacerbation Follow Up Care Test Results: Test results from this visit will be discussed in further detail at your follow- up appointment, if applicable. Discharge Plan Admission Admit Date/Time: 04/17/22 17:57 Primary Reason for Your Visit: AMS Attending Provider: Jacob Benz Primary Care Provider: Laura Pulliam Consulting Providers: Vidya Zamorano Instructions Additional Instructions / Restrictions: Change right and left foot ulcer dressings daily with Santyl. Apply this nickel thickness and cover with gauze. At the prior toe amputation site of the left foot, change dressing daily with Aquacel Ag. It is okay to wash the feet with antibacterial soap and water multiple times each week during dressing changes. To avoid soaking. To keep pressure off of the lateral foot ulcer sites by hanging her feet over a pillow while in bed to float the sites in the air. Monitor for development of signs of local infection on the feet which are not noted at this time. Discharge Orders/Prescriptions Prescriptions: New Santyl 250 unit/gram Ointment 1 applic topical DAILY Qty: 30 1RF Protocol: *Topical Application Instructions APPLICATION INSTRUCTIONS: apply nickel thick layer to bilateral lateral foot wounds potassium chloride [Klor-Con M20] 20 mEq Tablet,Er Particles/Crystals 20 meq PO BIDCM 30 Days Qty: 60 0RF Aquacel-AG 1.2-3.5 X 4 %- bandage 1 ea topical DAILY Qty: 10 3RF Continued metoprolol tartrate 25 MG tablet 25 mg PO BID duloxetine 60 MG capsule,delayed release(DR/EC) 60 mg PO DAILY insulin glargine 100 UNITS/ML insulin pen 65 units SC QHS hydrocodone-acetaminophen 5-325 mg Tablet 2 tab PO QHS hydrocodone-acetaminophen 5-325 mg Tablet 2 tab PO Q4H PRN (Reason: Pain) diphenhydramine HCl 25 mg Capsule 25 mg PO BID PRN PRN (Reason: Itching) nystatin 100,000 unit/gram Cream 1 applic TOPICAL BID fluticasone propionate 50 mcg/actuation [place],Suspension 2 spray INTRANASAL DAILY insulin lispro [Humalog KwikPen Insulin] 100 unit/mL Insulin Pen 10 unit SUBCUT BREAKFAST divalproex [Depakote] 125 mg Tablet,Delayed Release (Dr/Ec) 125 mg PO BID levetiracetam [Keppra] 750 mg Tablet 750 mg PO BID methadone 5 mg tablet 5 mg PO BID Label Comments: TAKE 1 TABLET (=5MG) BY MOUTH 2 TIMES DAILY FOR PAIN sennosides [senna] 8.6 mg Tablet 8.6 mg PO BID PRN (Reason: Constipation) oxybutynin chloride [Ditropan XL] 10 mg Tablet Extended Release 24hr 10 mg PO DAILY fluconazole [Diflucan] 150 mg Tablet 150 mg PO WESA diazepam [Valium] 2 mg Tablet 2 mg PO BID PRN (Reason: Anxiety) ondansetron 4 mg Tablet,Disintegrating 4 mg PO Q8H PRN (Reason: Nausea) insulin lispro [Humalog KwikPen Insulin] 100 unit/mL Insulin Pen 5 unit SUBCUT LUNCH insulin lispro 100 unit/mL Insulin Pen 10 unit SUBCUT DINNER insulin lispro 100 unit/mL Insulin Pen 2 - 10 unit SUBCUT TIDCM Protocol: 3. Sliding Scale Insulin Med Dosing Condition: 150-189 mg/dl = 1 unit Condition: 190-229 mg/dl = 2 units Condition: 230-269 mg/dl = 3 units Condition: 270-309 mg/dl = 4 units Condition: 310-349 mg/dl = 5 units Condition: 350-399 mg/dl = 6 units Condition: 400-449 mg/dl = 7 units Condition: Greater than 449 call physician Protocol Text: - Use for Total Daily Dose of Insulin 37-55 units - Obsese, infected, or steroid patients MEDIUM DOSING ALGORITHIM Rx Instructions: sliding scale diphenhydramine-calamine Lotion 1 ea TOPICAL BID PRN PRN (Reason: anti itch) omeprazole magnesium [Acid Radiation Therapy Technician (omeprazole)] 20 mg Capsule,Delayed Release(Dr/Ec) 20 mg PO DAILY naloxone 4 mg/actuation [place],Non-Aerosol 4 mg INTRANASAL PRN (Reason: .) Discontinued quetiapine [Seroquel] 25 mg Tablet 25 mg PO QHS Referrals / Follow Up: Vidya Zamorano DPM [STAFF PHYSICIAN] - Within 1 Month (Call wound care center to schedule: [phone]) Laura Pulliam MD [Primary Care Provider] - Disposition Disposition (needs filled in before D/C Order can be placed): Home, Self Care
[2022-04-18 12:50] LABS: Bedside Glucose 136 mg/dL (74-106)
--- NOTE | 2022-04-18 13:03 | DS.PCM_ITS ---
Documented by User: SARAH Guidry 04/18/22 13:16 Providers Date of Admission: 04/17/22 Date of Discharge: 04/18/22 Primary Care Physician: Dr. Laura Pulliam MD Consultations 04/18/22 06:43 Consult: Onc/Wound/chemical waste management technician Routine Comment: Reason for Consult:: wounds to bilat feet and buttocks/coccyx area. Comments:: Pt. refusing care to wounds 04/18/22 07:06 Consult: Podiatry Routine Consulting Provider: Vidya Zamorano Reason for Consult: left foot wound EMERGENT Consult: No MD Notified: Yes Date Notified: 04/18/22 Time Notified: 07:09 Method of Notification: Verbal Reason For Visit: ALTERED MENTAL STATUS Diagnosis Discharge Diagnosis (1) Non-pressure chronic ulcer of other part of right foot with fat layer exposed: Status: Chronic Code(s): L97.512 - Non-pressure chronic ulcer of other part of right foot with fat layer exposed (2) Non-pressure chronic ulcer of other part of left foot with fat layer exposed: Status: Chronic Code(s): L97.522 - Non-pressure chronic ulcer of other part of left foot with fat layer exposed (3) Type 2 diabetes mellitus with diabetic polyneuropathy: Status: Acute Code(s): E11.42 - Type 2 diabetes mellitus with diabetic polyneuropathy (4) Altered mental status: Status: Acute Code(s): R41.82 - Altered mental status, unspecified Plan 1. Acute Encephalopathy, unclear etiology -Admit to Med surg for observation -Will hold seroquel 2. Abnormal Urinalysis -Patient is positive for bacteria and leukocytes, however this is chronic. Patient has a normal WBC, no fever, and is asymptomatic for urinary symptoms -Maintain wright -Normal saline 75 ml/hr -CBC in am 3. Chronic Anemia -Hgb 9.6, consistent with baseline -CBC in am 4. Diabetes mellitus type 2 -ACHS blood sugars with SSI ordered -Continue lantus 5. Seizures -Continue Keppra 6. Depression - Continue amitriptyline, duloxetine 7. Chronic Pain -Continue methadone, vicodin DVT prophylaxis- Not indicated, observation status This patient was seen under the supervision of Dr. Benz. 31 minutes spent in coordination of care of patient. Medications at Discharge Home Medications metoprolol tartrate 25 mg tablet 25 mg PO BID HTN 03/24/15 duloxetine 60 mg capsule,delayed release 60 mg PO DAILY DEPRESSION 01/05/21 insulin glargine 100 unit/mL (3 mL) subcutaneous pen 65 units subcut QHS DM 01/05/21 hydrocodone-acetaminophen 5-325mg 5mg-325mg 2 tab PO QHS 04/27/21 diphenhydramine HCl 25 mg capsule 25 mg PO BID PRN PRN Itching 12/21/21 fluticasone propionate 50 mcg/actuation nasal spray,suspension 2 spray intranasal DAILY ALLERGIES 12/21/21 hydrocodone-acetaminophen 5-325mg 5mg-325mg 2 tab PO Q4H PRN Pain 12/21/21 insulin lispro 100 unit/mL subcutaneous pen (Humalog KwikPen (U-100) Insulin) 10 unit subcut BREAKFAST DM 12/21/21 nystatin 100,000 unit/gram topical cream 1 applic topical BID SKIN FOLDS 12/21/21 diazepam 2 mg tablet (Valium) 2 mg PO BID PRN Anxiety 04/17/22 diphenhydramine-calamine lotion 1 ea topical BID PRN PRN anti itch 04/17/22 divalproex 125 mg tablet,delayed release (Depakote) 125 mg PO BID 04/17/22 fluconazole 150 mg tablet (Diflucan) 150 mg PO WESA yeast prevention 04/17/22 insulin lispro 100 unit/mL subcutaneous pen 2 - 10 unit subcut TIDCM 04/17/22 insulin lispro 100 unit/mL subcutaneous pen 10 unit subcut DINNER . 04/17/22 insulin lispro 100 unit/mL subcutaneous pen (Humalog KwikPen (U-100) Insulin) 5 unit subcut LUNCH . 04/17/22 levetiracetam 750 mg tablet (Keppra) 750 mg PO BID . 04/17/22 methadone 5 mg tablet 5 mg PO BID 04/17/22 naloxone 4 mg/actuation nasal spray 4 mg intranasal PRN . 04/17/22 omeprazole magnesium 20 mg capsule,delayed release (Acid Landscape Contractor (omeprazole)) 20 mg PO DAILY acid reflux 04/17/22 ondansetron 4 mg disintegrating tablet 4 mg PO Q8H PRN Nausea 04/17/22 oxybutynin chloride 10 mg tablet,extended release 24 hr (Ditropan XL) 10 mg PO DAILY 04/17/22 sennosides 8.6 mg tablet (senna) 8.6 mg PO BID PRN Constipation 04/17/22 collagenase clostridium histo. 250 unit/gram topical ointment (Santyl) 1 applic topical DAILY #30 grams 04/18/22 potassium chloride 20 mEq tablet,extended release(part/cryst) (Klor-Con M) 20 meq PO BIDCM 30 days #60 tabs 04/18/22 silver-hydrocolloid dressing 1.2 %-3.5 X 4 (Aquacel-AG) 1 ea topical DAILY #10 ea 04/18/22 Hospital Course Operations None Procedures None Summary of Care Provided Minutes Spent on Discharge: 35 Hospital Course: Patient is a 67-year-old female who initially presented with altered mental status and hallucinations. Patient has been alert and oriented throughout hospitalization with no hallucinations so it is unclear what caused this however patient does have a history of this in the past. Patient had an abnormal urinalysis however this is normal for patient secondary to her suprapubic catheter. Patient has no other signs and symptoms of infection and vital signs are stable so patient was not given any antibiotics. Patient was seen by podiatry for several ulcers to her bilateral feet. Dr. Zamorano saw patient and gave recommendations for wound care. This has been sent with her discharge instructions. Patient will follow up with Dr. Marie in 1 month outpatient. Patient will be discharged home with continued care with home health/palliative care. Physical Exam Const alert, oriented x3 and no apparent distress HEENT normocephalic, head/scalp atraumatic and moist oral mucous membranes Eyes conjunctivae normal and no scleral icterus Neck supple General: trachea midline Lymph Lymphatic: no lymphadenopathy noted Resp normal respiratory effort, normal air movement and clear to auscultation bilaterally Cardio regular rate, regular rhythm, S1 normal heart sound and S2 normal heart sound GI normal to inspection, nondistended, normoactive bowel sounds, soft to palpation and non-tender Extremity normal capillary refill General Extremity: edema bilateral lower extremity Details: mild Skin Lesions: no lesions Rashes: no rashes Neuro oriented x3, moves all extremities, no focal motor deficits and no sensory deficits noted Psych Attitude: calm Speech: normal speech Thought Content: hallucination(s) Weight / BMI Weight Weight: 233 lb 11.04 oz Body Mass Index (BMI) 38.9 ABG / Lab / Microbiology Data Result Diagrams: 04/18/22 03:46 04/18/22 03:46 Laboratory: Laboratory Results - last 24 hr 04/17/22 14:35: WBC 8.6, RBC 3.88 L, Hgb 9.3 L, Hct 30.9 L, MCV 79.6 L, MCH 24.0 L, MCHC 30.1 L, RDW Std Deviation 46.2 H, RDW Coeff of Ash 15.9 H, Plt Count 296, MPV 10.1 04/17/22 14:35: Sodium 137, Potassium 3.4 L, Chloride 96 L, Carbon Dioxide 33.0 H, Anion Gap 8, BUN 16, Creatinine 0.78, Estim Creat Clear Calc 48.45, Est GFR (MDRD) Af Amer 94, Est GFR (MDRD) Non-Af 78, BUN/Creatinine Ratio 20.4 H, Glucose 176 H, Calcium 7.0 L, Total Bilirubin 0.20, AST 17, ALT 9 L, Alkaline Phosphatase 64, Total Protein 7.3, Albumin 2.0 L, Globulin 5.3 H, Albumin/Globulin Ratio 0.4 L 04/17/22 14:35: Urine Color Yellow, Urine Clarity Sl. Cloudy, Urine pH 7.0, Ur Specific [place] 1.010, Urine Protein 500 H, Urine Glucose (UA) 50 H, Urine Ketones 5 H, Urine Occult Blood 250 H, Urine Nitrite Positive H, Urine Bilirubin 1 H, Urine Urobilinogen 1 H, Ur Leukocyte Esterase 500 H, Urine RBC 25-50 SEEN, Urine WBC 25-50 SEEN, Ur Squamous Epith Cells 0-5 SEEN, Urine Bacteria 1+, Urine Mucus 0 SEEN 04/17/22 22:35: POC Glucose 130 H 04/18/22 03:46: WBC 6.7, RBC 3.54 L, Hgb 8.5 L, Hct 28.1 L, MCV 79.4 L, MCH 24.0 L, MCHC 30.2 L, RDW Std Deviation 45.1 H, RDW Coeff of Ash 15.7 H, Plt Count 261, MPV 10.2, Immature Gran % (Auto) 0.500, Neut % (Auto) 48.7, Lymph % (Auto) 36.6, [place] % (Auto) 9.3, Eos % (Auto) 4.4, Baso % (Auto) 0.5, Absolute Neuts (a uto) 3.3, Absolute Lymphs (auto) 2.44, Nucleated RBC % 0 04/18/22 03:46: Sodium 138, Potassium 2.9 L, Chloride 100, Carbon Dioxide 31.0, Anion Gap 7, BUN 16, Creatinine 0.66, Estim Creat Clear Calc 48.45, Est GFR (MDRD) Af Amer 115, Est GFR (MDRD) Non-Af 95, BUN/Creatinine Ratio 24.3 H, Glucose 103, Calcium 6.7 L 04/18/22 12:30: POC Glucose 136 H Microbiology: Microbiology 04/17/22 14:35 Urine Catheter - Catheter Urine Culture - Preliminary Gram negative [place] Radiography Diagnostic Testing: Radiology Impression Chest X-Ray 04/17/22 14:55 IMPRESSION: No acute abnormality is seen. Electronically Signed: Andrea Burch MD at 15:20 EDT , D/C Instructions Discharge Diet: Low fat / Low cholesterol and 1800 Calorie Control Diet Call your doctor if your incision/area has: Continuous Slow Oozing, Sudden Increased Bleeding, Increased Pain/ Swelling, Increased Redness, Foul Smelling Discharge and Swelling at the incision site Call your doctor if you observe: Fever of 101 or Higher Additional Dressing/Incision Instructions: Dressing: Santyl applied nickel thickness to bilateral lateral foot ulcers daily. Aquacel Ag to prior fifth toe amputation site of the left foot daily. Wash: Soap and water Offload: To avoid laying directly on the wounds by placing a pillow behind her lower leg so this is not making contact with the bed Vascular: Her feet are warm to touch and is noted she is on a palliative plan. Edema: To perform intermittent elevation to reduce edema exacerbation Meaningful Use Info Meaningful Use Diagnoses (Choose all that apply): None applicable Discharge Plan Admission Admit Date/Time: 04/17/22 17:57 Primary Reason for Your Visit: AMS Attending Provider: Jacob Benz Primary Care Provider: Lee Kerr Consulting Providers: Vidya Zamorano Instructions Additional Instructions / Restrictions: Change right and left foot ulcer dressings daily with Santyl. Apply this nickel thickness and cover with gauze. At the prior toe amputation site of the left foot, change dressing daily with Aquacel Ag. It is okay to wash the feet with antibacterial soap and water multiple times each week during dressing changes. To avoid soaking. To keep pressure off of the lateral foot ulcer sites by hanging her feet over a pillow while in bed to float the sites in the air. Monitor for development of signs of local infection on the feet which are not noted at this time. Discharge Orders/Prescriptions Prescriptions: New Santyl 250 unit/gram Ointment 1 applic topical DAILY Qty: 30 1RF Protocol: *Topical Application Instructions APPLICATION INSTRUCTIONS: apply nickel thick layer to bilateral lateral foot wounds potassium chloride [Klor-Con M20] 20 mEq Tablet,Er Particles/Crystals 20 meq PO BIDCM 30 Days Qty: 60 0RF Aquacel-AG 1.2-3.5 X 4 %- bandage 1 ea topical DAILY Qty: 10 3RF Continued metoprolol tartrate 25 MG tablet 25 mg PO BID duloxetine 60 MG capsule,delayed release(DR/EC) 60 mg PO DAILY insulin glargine 100 UNITS/ML insulin pen 65 units SC QHS hydrocodone-acetaminophen 5-325 mg Tablet 2 tab PO QHS hydrocodone-acetaminophen 5-325 mg Tablet 2 tab PO Q4H PRN (Reason: Pain) diphenhydramine HCl 25 mg Capsule 25 mg PO BID PRN PRN (Reason: Itching) nystatin 100,000 unit/gram Cream 1 applic TOPICAL BID fluticasone propionate 50 mcg/actuation [place],Suspension 2 spray INTRANASAL DAILY insulin lispro [Humalog KwikPen Insulin] 100 unit/mL Insulin Pen 10 unit SUBCUT BREAKFAST divalproex [Depakote] 125 mg Tablet,Delayed Release (Dr/Ec) 125 mg PO BID levetiracetam [Keppra] 750 mg Tablet 750 mg PO BID methadone 5 mg tablet 5 mg PO BID Label Comments: TAKE 1 TABLET (=5MG) BY MOUTH 2 TIMES DAILY FOR PAIN sennosides [senna] 8.6 mg Tablet 8.6 mg PO BID PRN (Reason: Constipation) oxybutynin chloride [Ditropan XL] 10 mg Tablet Extended Release 24hr 10 mg PO DAILY fluconazole [Diflucan] 150 mg Tablet 150 mg PO WESA diazepam [Valium] 2 mg Tablet 2 mg PO BID PRN (Reason: Anxiety) ondansetron 4 mg Tablet,Disintegrating 4 mg PO Q8H PRN (Reason: Nausea) insulin lispro [Humalog KwikPen Insulin] 100 unit/mL Insulin Pen 5 unit SUBCUT LUNCH insulin lispro 100 unit/mL Insulin Pen 10 unit SUBCUT DINNER insulin lispro 100 unit/mL Insulin Pen 2 - 10 unit SUBCUT TIDCM Protocol: 3. Sliding Scale Insulin Med Dosing Condition: 150-189 mg/dl = 1 unit Condition: 190-229 mg/dl = 2 units Condition: 230-269 mg/dl = 3 units Condition: 270-309 mg/dl = 4 units Condition: 310-349 mg/dl = 5 units Condition: 350-399 mg/dl = 6 units Condition: 400-449 mg/dl = 7 units Condition: Greater than 449 call physician Protocol Text: - Use for Total Daily Dose of Insulin 37-55 units - Obsese, infected, or steroid patients MEDIUM DOSING ALGORITHIM Rx Instructions: sliding scale diphenhydramine-calamine Lotion 1 ea TOPICAL BID PRN PRN (Reason: anti itch) omeprazole magnesium [Acid Landscape Contractor (omeprazole)] 20 mg Capsule,Delayed Release(Dr/Ec) 20 mg PO DAILY naloxone 4 mg/actuation [place],Non-Aerosol 4 mg INTRANASAL PRN (Reason: .) Discontinued quetiapine [Seroquel] 25 mg Tablet 25 mg PO QHS Referrals / Follow Up: Vidya Zamorano DPM [STAFF PHYSICIAN] - Within 1 Month (Call wound care center to schedule: [phone]) Laura Pulliam MD [NON-STAFF] - Disposition Disposition (needs filled in before D/C Order can be placed): Home, Self Care Documented by User: Dr. Jacob Benz DO 04/18/22 17:52 Providers Date of Admission: 04/17/22 Reason For Visit: ALTERED MENTAL STATUS Diagnosis Discharge Diagnosis (1) Non-pressure chronic ulcer of other part of right foot with fat layer exposed: Status: Chronic Code(s): L97.512 - Non-pressure chronic ulcer of other part of right foot with fat layer exposed (2) Non-pressure chronic ulcer of other part of left foot with fat layer exposed: Status: Chronic Code(s): L97.522 - Non-pressure chronic ulcer of other part of left foot with fat layer exposed (3) Type 2 diabetes mellitus with diabetic polyneuropathy: Status: Acute Code(s): E11.42 - Type 2 diabetes mellitus with diabetic polyneuropathy (4) Altered mental status: Status: Acute Code(s): R41.82 - Altered mental status, unspecified Medications at Discharge Home Medications metoprolol tartrate 25 mg tablet 25 mg PO BID HTN 03/24/15 duloxetine 60 mg capsule,delayed release 60 mg PO DAILY DEPRESSION 01/05/21 insulin glargine 100 unit/mL (3 mL) subcutaneous pen 65 units subcut QHS DM 01/05/21 hydrocodone-acetaminophen 5-325mg 5mg-325mg 2 tab PO QHS 04/27/21 diphenhydramine HCl 25 mg capsule 25 mg PO BID PRN PRN Itching 12/21/21 fluticasone propionate 50 mcg/actuation nasal spray,suspension 2 spray intranasal DAILY ALLERGIES 12/21/21 hydrocodone-acetaminophen 5-325mg 5mg-325mg 2 tab PO Q4H PRN Pain 12/21/21 insulin lispro 100 unit/mL subcutaneous pen (Humalog KwikPen (U-100) Insulin) 10 unit subcut BREAKFAST DM 12/21/21 nystatin 100,000 unit/gram topical cream 1 applic topical BID SKIN FOLDS 12/21/21 diazepam 2 mg tablet (Valium) 2 mg PO BID PRN Anxiety 04/17/22 diphenhydramine-calamine lotion 1 ea topical BID PRN PRN anti itch 04/17/22 divalproex 125 mg tablet,delayed release (Depakote) 125 mg PO BID 04/17/22 fluconazole 150 mg tablet (Diflucan) 150 mg PO WESA yeast prevention 04/17/22 insulin lispro 100 unit/mL subcutaneous pen 2 - 10 unit subcut TIDCM 04/17/22 insulin lispro 100 unit/mL subcutaneous pen 10 unit subcut DINNER . 04/17/22 insulin lispro 100 unit/mL subcutaneous pen (Humalog KwikPen (U-100) Insulin) 5 unit subcut LUNCH . 04/17/22 levetiracetam 750 mg tablet (Keppra) 750 mg PO BID . 04/17/22 methadone 5 mg tablet 5 mg PO BID 04/17/22 naloxone 4 mg/actuation nasal spray 4 mg intranasal PRN . 04/17/22 omeprazole magnesium 20 mg capsule,delayed release (Acid Landscape Contractor (omeprazole)) 2 0 mg PO DAILY acid reflux 04/17/22 ondansetron 4 mg disintegrating tablet 4 mg PO Q8H PRN Nausea 04/17/22 oxybutynin chloride 10 mg tablet,extended release 24 hr (Ditropan XL) 10 mg PO DAILY 04/17/22 sennosides 8.6 mg tablet (senna) 8.6 mg PO BID PRN Constipation 04/17/22 collagenase clostridium histo. 250 unit/gram topical ointment (Santyl) 1 applic topical DAILY #30 grams 04/18/22 potassium chloride 20 mEq tablet,extended release(part/cryst) (Klor-Con M) 20 meq PO BIDCM 30 days #60 tabs 04/18/22 silver-hydrocolloid dressing 1.2 %-3.5 X 4 (Aquacel-AG) 1 ea topical DAILY #10 ea 04/18/22 ABG / Lab / Microbiology Data Result Diagrams: 04/18/22 03:46 04/18/22 03:46 Discharge Plan Admission Admit Date/Time: 04/17/22 17:57 Primary Reason for Your Visit: AMS Attending Provider: Jacob Benz Primary Care Provider: Lee Kerr Consulting Providers: Vidya Zamorano Instructions Additional Instructions / Restrictions: Change right and left foot ulcer dressings daily with Santyl. Apply this nickel thickness and cover with gauze. At the prior toe amputation site of the left foot, change dressing daily with Aquacel Ag. It is okay to wash the feet with antibacterial soap and water multiple times each week during dressing changes. To avoid soaking. To keep pressure off of the lateral foot ulcer sites by hanging her feet over a pillow while in bed to float the sites in the air. Monitor for development of signs of local infection on the feet which are not noted at this time. Discharge Orders/Prescriptions Prescriptions: New Santyl 250 unit/gram Ointment 1 applic topical DAILY Qty: 30 1RF Protocol: *Topical Application Instructions APPLICATION INSTRUCTIONS: apply nickel thick layer to bilateral lateral foot wounds potassium chloride [Klor-Con M20] 20 mEq Tablet,Er Particles/Crystals 20 meq PO BIDCM 30 Days Qty: 60 0RF Aquacel-AG 1.2-3.5 X 4 %- bandage 1 ea topical DAILY Qty: 10 3RF Continued metoprolol tartrate 25 MG tablet 25 mg PO BID duloxetine 60 MG capsule,delayed release(DR/EC) 60 mg PO DAILY insulin glargine 100 UNITS/ML insulin pen 65 units SC QHS hydrocodone-acetaminophen 5-325 mg Tablet 2 tab PO QHS hydrocodone-acetaminophen 5-325 mg Tablet 2 tab PO Q4H PRN (Reason: Pain) diphenhydramine HCl 25 mg Capsule 25 mg PO BID PRN PRN (Reason: Itching) nystatin 100,000 unit/gram Cream 1 applic TOPICAL BID fluticasone propionate 50 mcg/actuation [place],Suspension 2 spray INTRANASAL DAILY insulin lispro [Humalog KwikPen Insulin] 100 unit/mL Insulin Pen 10 unit SUBCUT BREAKFAST divalproex [Depakote] 125 mg Tablet,Delayed Release (Dr/Ec) 125 mg PO BID levetiracetam [Keppra] 750 mg Tablet 750 mg PO BID methadone 5 mg tablet 5 mg PO BID Label Comments: TAKE 1 TABLET (=5MG) BY MOUTH 2 TIMES DAILY FOR PAIN sennosides [senna] 8.6 mg Tablet 8.6 mg PO BID PRN (Reason: Constipation) oxybutynin chloride [Ditropan XL] 10 mg Tablet Extended Release 24hr 10 mg PO DAILY fluconazole [Diflucan] 150 mg Tablet 150 mg PO WESA diazepam [Valium] 2 mg Tablet 2 mg PO BID PRN (Reason: Anxiety) ondansetron 4 mg Tablet,Disintegrating 4 mg PO Q8H PRN (Reason: Nausea) insulin lispro [Humalog KwikPen Insulin] 100 unit/mL Insulin Pen 5 unit SUBCUT LUNCH insulin lispro 100 unit/mL Insulin Pen 10 unit SUBCUT DINNER insulin lispro 100 unit/mL Insulin Pen 2 - 10 unit SUBCUT TIDCM Protocol: 3. Sliding Scale Insulin Med Dosing Condition: 150-189 mg/dl = 1 unit Condition: 190-229 mg/dl = 2 units Condition: 230-269 mg/dl = 3 units Condition: 270-309 mg/dl = 4 units Condition: 310-349 mg/dl = 5 units Condition: 350-399 mg/dl = 6 units Condition: 400-449 mg/dl = 7 units Condition: Greater than 449 call physician Protocol Text: - Use for Total Daily Dose of Insulin 37-55 units - Obsese, infected, or steroid patients MEDIUM DOSING ALGORITHIM Rx Instructions: sliding scale diphenhydramine-calamine Lotion 1 ea TOPICAL BID PRN PRN (Reason: anti itch) omeprazole magnesium [Acid Landscape Contractor (omeprazole)] 20 mg Capsule,Delayed Release(Dr/Ec) 20 mg PO DAILY naloxone 4 mg/actuation [place],Non-Aerosol 4 mg INTRANASAL PRN (Reason: .) Discontinued quetiapine [Seroquel] 25 mg Tablet 25 mg PO QHS Referrals / Follow Up: Vidya Zamorano DPM [STAFF PHYSICIAN] - Within 1 Month (Call wound care center to schedule: [phone]) Laura Pulliam MD [NON-STAFF] - Disposition Disposition (needs filled in before D/C Order can be placed): Home, Self Care Charges/Coding Addendum Addendum: Patient was seen and examined today independently of Gloria Jack, I talked with wound care and podiatry about her care. Patient needs further wound care at home, son is agreed to provide the wound care along with hospice referral. Patient is alert today, she is argumentative at times but does not appear to be hallucinating. On examination she appeared older than her stated age, she does not appear to be in any distress. Vital signs as documented. Skin-there are several areas of skin excoriation on the patient's back area and in her panniculus fold, in addition there are areas of eschar over the patient's feet bilaterally.. Neck without JVD, thyroid appears normal, trachea is midline, neck is supple. Lungs clear, normal air movement was noted. Heart exam notable for regular rhythm, normal sounds and absence of murmurs, rubs or gallops. Abdomen unremarkable and without evidence of organomegaly, masses, or abdominal aortic enlargement, bowel sounds are present in all 4 quadrants, no abdominal tenderness was noted. Colostomy was present. Extremities nonedematous, no cyanosis was noted, no clubbing was noted. Neuro: Cranial nerves II through XII are grossly intact, no focal motor deficits were noted, sensation to light touch and pinprick is intact, motor exam 5/5 throughout. Psych: Patient is alert and oriented x3, she does not appear anxious or depressed, she does not appear agitated. #1 altered mental status-etiology unclear, could be secondary to polypharmacy, patient is alert today and is not hallucinating, I feels that she is stable for discharge home, again hospice will reactivate her case and see her at her home. 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 Hospitalist will be talking with him again at home. I have reviewed Gloria Jack's discharge summary including her medical assessment and plan of care and endorse it. Total clinical time spent by myself addressing the patient's medical issues, reviewing the data, and collaborating with patient's care team: 30 minutes Visit Charges OBSV E&M: [id number] Observation care discharge
--- NOTE | 2022-04-18 13:33 | CASEMGMT ---
Addendum entered by Robyn Escoto 04/18/22 15:06: Faxed dc instructions and summary to [facility] at [phone] with dc date of today and transportation to be arriving at 1930. Addendum entered by Robyn Escoto 04/18/22 14:12: TC to hospice, spoke with Maria Fernanda. She states an admission nurse will go out to see pt once home to [facility]state hospice. She asks for time of dc to be faxed with dc instructions and summary. She is aware pt is dc'ing today. Original Note: ESTEFANIA BURKS Assessment: Face to Face with pt for initial transition planning/care coordination assessment. ESTEFANIA BURKS introduced self and role at [facility], pt voices understanding and consents to assessment. Pt is O x3 although very drowsy during answering of questions. Care providers, pharmacy, and demographics verified/updated. Admitting Dx: altered mental status PCP:[facility] Specialists:Pt denies. [facility]erred Pharm[facility]: [facility] Prescription Benefit: yes LW/HPOA: Pt has LW/DPOA on file at [facility]. Her DPOA is her son Jc Jaramillo. LNOK: Jc Jaramillo, son; Mila Dumas, sister Living Arrangements: Pt lives with son in an apt with an elevator to enter. Pt reports that she doesn't need help with ADL's. Transportation: Pt did not answer this question. DME/HHC/SNF: Pt declined to answer these questions. Pt states no concerns with going home at time of dc. Pt states she was on hospice and would like to go back home with hospice. Hospice was revoked for this hospital stay. Discussed pt wound care orders with her. Pt states this is not a problem. Pt states no further concerns/needs. CM to follow. Advised pt to ask CM if any further question/concerns/needs arise, voices understanding. Pt Goal: Home with hospice Plan: Home with hospice, updated SW.
[2022-04-18] MEDS: Collagenase 30gm Tube 1 APPLIC TOPICAL (13:36)
--- NOTE | 2022-04-18 13:58 | WOUNDNOTE ---
wound photo: left lateral foot (post bedside debridement per Dr Zamorano)
--- NOTE | 2022-04-18 13:59 | WOUNDNOTE ---
wound photo: right lateral foot (post bedside debridement per Dr Zamorano)
[2022-04-18 14:00] VITALS: BP 130/55; PULSE 75; RESP 16; TEMP 36.6; O2SAT 97
--- NOTE | 2022-04-18 15:38 | CASEMGMT ---
Social Work BRANDON placed phone call to pt son Jc who plans to take pt home. Jc requesting to speak with the physician. SW notified the physician. Pt and son would like hospice services restarted. Per prior visits pt did have services through [facility]. Jc is agreeable to this service again. Jc states pt will need to be transported home via cot. Transportation arranged for 7:30 pickup by [facility]. Phone call to [facility]. Pt health care coordinator is Kassie Shoemaker [phone]. Notified that pt is at home, they were unaware pt left [facility]. Kassie is to meet with pt and son on 04/20/22. It was confirmed pt can have both hospice and [facility]. BRANDON called Jc and updated on above. He is agreeable to d/c plan. RNCM to update hospice of discharge home and time. BRANDON placed call to Melva at [facility] and made referral. Plan: Home with hospice and followup with [facility] and [facility] MAICOL Little
[2022-04-18 19:22] VITALS: BP 142/57; PULSE 82; RESP 16; TEMP 36.8; O2SAT 92
--- NOTE | 2022-04-18 20:29 | NURSING ---
notified Jc, son, that transport is here to pickle pumper his mother.
== END 2022-04-18 20:32 | disposition hospice, home (50) ==
LOC: ED 17:06 → MS3 17:35
PROVIDERS: Nurse Practitioner Family; Admitting Provider Internal Medicine; Emergency Provider Emergency Medicine; PCP Internal Medicine; Visit Provider Internal Medicine
DX: R41.82 Altered mental status, unspecified (principal); E11.621 Type 2 diabetes mellitus with foot ulcer; Z93.3 Colostomy status; L97.512 Non-pressure chronic ulcer of other part of right foot with fat layer exposed; L97.522 Non-pressure chronic ulcer of other part of left foot with fat layer exposed; J44.9 Chronic obstructive pulmonary disease, unspecified; I11.0 Hypertensive heart disease with heart failure; I50.9 Heart failure, unspecified; E11.42 Type 2 diabetes mellitus with diabetic polyneuropathy; Z79.4 Long term (current) use of insulin; R82.71 Bacteriuria; F17.210 Nicotine dependence, cigarettes, uncomplicated; D64.9 Anemia, unspecified; I25.10 Atherosclerotic heart disease of native coronary artery without angina pectoris; K21.9 Gastro-esophageal reflux disease without esophagitis; F32.A Depression, unspecified; G47.30 Sleep apnea, unspecified; I25.2 Old myocardial infarction; Z79.02 Long term (current) use of antithrombotics/antiplatelets; Z79.899 Other long term (current) drug therapy; G89.4 Chronic pain syndrome; N82.0 Vesicovaginal fistula
CPT/HCPCS: 36415; 71045; 80048; 80053; 81001; 82962; 85025; 85027; 87077; 87086; 87088; 87184; 87186; 93005; 96360; 96361; 99218; 99285; 99406; J7030; A4216; G0378